=== PATIENT | female | born 1945 | race African-American/Black ===

== ENCOUNTER 2016-11-06 09:49 | Inpatient (IN) | payer OTHER ==
--- NOTE | 2016-11-06 10:09 | PDOC ---
History of Present Illness - General Chief Complaint: Blood Sugar Problem Stated Complaint: LOW BLOOD SUGAR Time Seen by Provider: 11/06/16 09:55 History Source: Patient, Care Provider, EMS, Old Records Exam Limitations: Language Barrier - History of Present Illness Initial Comments: 11/06/16 10:41 71-year-old female with history of hypertension, coronary artery disease status post stents, CHF status post pacemaker placement, diabetes, gout, glaucoma who presents to the emergency department by EMS status post hypoglycemic episode at home this morning. The home health aide states that when she got to the patient' s home, she seemed more sleepy than normal. She performed a blood glucose at home that was 28. She gave the patient a glass of orange juice but noted that the patient was barely able to raise the glass to her mouth so she called 911. EMS gave the patient 15 g of oral glucose with improvement of her mental status but fingerstick was only 50. Her fingerstick upon arrival to the emergency department was 1:15. The patient complains of pain in her back yesterday but has no other complaints at this time and denies back pain right now. Per the home health aide the patient's glucose in the morning yesterday was 30. The patient reports a recent change in her insulin regimen. She normally takes 8 units of insulin and it was recently increased to 10 units of insulin. She did not eat breakfast this morning. History was obtained using the [employer] hotline (art[employer] model ID [id number]). Past History - Past Medical History Allergies/Adverse Reactions: Allergies Allergy/AdvReac Type Severity Reaction Status Date / Time No Known Allergies Allergy Verified 11/06/16 09:59 Home Medications: Ambulatory Orders Allopurinol [Zyloprim -] 100 mg PO DAILY 02/24/16 Aspirin [ASA -] 81 mg PO DAILY 02/24/16 Ferrous Sulfate 324 mg PO TID 02/24/16 Gabapentin 300 mg PO DAILY 02/24/16 Omeprazole 20 mg PO DAILY 10/02/16 Pyridoxine HCl (B-6) [Vitamin B6 -] 50 mg PO DAILY 10/02/16 Sevelamer Carbonate [Renvela -] 800 mg PO CM 10/02/16 Insulin (Levemir) [Levemir Vial] 10 units SQ BID #0 10/04/16 Insulin Aspart [Novolog Flexpen] 10 unit SQ TID #1 10/04/16 Anemia: Yes (ISH) Asthma: No Cancer: No Cardiac Disorders: Yes (HCVD, chest pain syndrome) CVA: No COPD: No CHF: Yes Dementia: No Diabetes: Yes (TYPE II) GI Disorders: No Disorders: Yes (Renal Insuffiency) HTN: Yes Hypercholesterolemia: Yes Liver Disease: No Psychiatric Problems: Yes (anxiety) Suicide Attempt (Hx): No Seizures: No Thyroid Disease: No - Surgical History Abdominal Surgery: No Appendectomy: No Cardiac Surgery: Yes (STENTS/PPM 2007) Cholecystectomy: No Lung Surgery: No Neurologic Surgery: No Orthopedic Surgery: No - Immunization History Td Vaccination: Yes TDAP Vaccination: Yes Immunization Up to Date: Yes - Psycho/Social/Smoking Cessation Hx Anxiety: No Suicidal Ideation: No Smoking Status: No Smoking History: Never smoked Have you smoked in the past 12 months: No Number of Cigarettes Smoked Daily: 0 Information on smoking cessation initiated: No Hx Alcohol Use: No Drug/Substance Use Hx: No Substance Use Type: None Hx Substance Use Treatment: No *Physical Exam - Vital Signs Last Vital Signs Temp Pulse Resp BP Pulse Ox 98.3 F 88 17 149/64 97 11/06/16 09:54 11/06/16 09:54 11/06/16 09:54 11/06/16 09:54 11/06/16 10:00 - Physical Exam Comments: 11/06/16 10:44 GENERAL: Well developed, well nourished. Awake and alert. No acute distress. HEENT: Normocephalic, atraumatic. PERRLA, EOMI. No conjunctival pallor. Sclera are non- icteric. Moist mucous membranes. Oropharynx is clear. NECK: Supple. Full ROM. No JVD. Carotid pulses 2+ and symmetric, without bruits. No thyromegaly. No lymphadenopathy. CARDIOVASCULAR: Regular rate and rhythm. No murmurs, rubs, or gallops. Distal pulses are 2+ and symmetric. PULMONARY: No evidence of respiratory distress. Lungs clear to auscultation bilaterally. No wheezing, rales or rhonchi. ABDOMINAL: Soft. Non-tender. Non-distended. No rebound or guarding. No organomegaly. Normoactive bowel sounds. MUSCULOSKELETAL Normal range of motion at all joints. No bony deformities or tenderness. No CVA tenderness. EXTREMITIES: There is +2 bipedal edema with hyperpigmentation of the lower extremities bilaterally. SKIN: Warm and dry. Normal capillary refill. No rashes. No jaundice. NEUROLOGICAL: Alert and oriented x 3. Groslly non-focal exam. PSYCHIATRIC: Cooperative. Good eye contact. Appropriate mood and affect. ED Treatment Course - LABORATORY CBC & Chemistry Diagram: 11/06/16 10:10 11/06/16 10:10 Medical Decision Making - Medical Decision Making 11/06/16 10:45 71-year-old female with history of anemia, cataracts, CHF, hypertension, CAD, diabetes who presents to the emergency department with her second episode of hypoglycemia in 2 days. Differential diagnosis includes but is not limited to: Renal failure, infection, electrolyte abnormality, dehydration, toxic/metabolic derangement. Plan: 1. Labs 2. Urine 3. Chest x-ray 4. Will discuss with primary care physician, Dr. Combs, regarding current insulin regimen 5. Observe and reevaluate 11/06/16 13:02 Addendum: The labs have been reviewed and are noted in the EMR. I've discussed the case with the patient's primary care physician. The plan is to admit to observation for careful monitoring of glucose and adjustment of insulin regimen. *DC/Admit/Observation/Transfer Diagnosis at time of Disposition: Hypoglycemia, IDDM (insulin dependent diabetes mellitus) - Discharge Dispostion Condition at time of disposition: Stable Admit: Yes - Referrals Referrals: Iesha Combs MD [Primary Care Provider] -
[2016-11-06 11:03] LABS: URINE APPEARANCE SLCLOUDY; URINE BILIRUBIN NEGATIVE (NEGATIVE); URINE COLOR LTYELLOW; URINE GLUCOSE (UA) NEGATIVE (NEGATIVE); URINE KETONE NEGATIVE (NEGATIVE); URINE NITRITE NEGATIVE (NEGATIVE); URINE PROTEIN NEGATIVE (NEGATIVE); URINE UROBILINOGEN NEGATIVE E.U./dl (0.2-1.0)
[2016-11-06 11:07] LABS: BASOPHIL 0.6 % (0-2.0); MCHC 31.4 g/dl (32.0-36.0); MEAN CELL VOLUME 69.9 fl (80-96); MEAN PLT VOLUME 10.4 fl (7.5-11.1); NEUTROPHILS 67.5 % (42.8-82.8); PLATELET COUNT 196 K/MM3 (134-434); RDW 16.8 % (11.6-15.6)
[2016-11-06 11:08] LABS: ALBUMIN 2.9 g/dl (3.4-5.0); ANION GAP 7 (8-16); BILIRUBIN,TOTAL 0.2 mg/dL (0.2-1.0); CALCIUM 8.1 mg/dL (8.5-10.1); CO2 26 mmol/L (21-32); CREATININE 2.3 mg/dL (0.55-1.02); GLUCOSE,RANDOM 144 mg/dL (74-106); MAGNESIUM 2.1 mg/dL (1.8-2.4); PHOSPHOROUS 3.7 mg/dL (2.5-4.9); SGOT/AST 17 U/L (15-37); SGPT/ALT 18 U/L (12-78); TOT PROT 6.7 g/dl (6.4-8.2)
[2016-11-06 11:11] LABS: ALK PHOS 137 U/L (45-117); TROPONIN I < 0.02 ng/ml (0.00-0.05)
[2016-11-06 11:16] LABS: URINE BLOOD 1+ (NEGATIVE); URINE LEUK ESTERASE 1+ (NEGATIVE)
[2016-11-06 11:19] LABS: URINE BACTERIA RARE /hpf (NONE SEEN); URINE MUCUS RARE; URINE RBC <1 /hpf (0-3); URINE WBC 16 /hpf (3-5)
[2016-11-06 11:52] LABS: HYPOCHROMIA 3+; POIKILOCYTOSIS 1+
[2016-11-06 11:53] LABS: ANISOCYTOSIS 1+; MICROCYTOSIS 2+; OVALOCYTES 1+; TARGET CELLS 2+
[2016-11-06] MEDS ORDERED: ACETAMINOPHEN 325 MG TABLET (FP) PO PRN (13:44)
--- NOTE | 2016-11-06 13:49 | HP ---
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) Pulmonary: Yes: COPD Gastrointestinal: Yes: GERD, Other (anemia, IRON DEF) Heme/Onc: Yes: Anemia Musculoskeletal: Yes: Osteoarthritis Rheumatology: Yes: Gout Endocrine: Yes: Diabetes Mellitus - Past Surgical History Past Surgical History: Yes: AICD, Stent - Smoking History Smoking history: Never smoked Have you smoked in the past 12 months: No Aproximately how many cigarettes per day: 0 - Alcohol/Substance Use Hx Alcohol Use: No - Social History ADL: Support Services Home Medications - Allergies Allergies/Adverse Reactions: Allergies Allergy/AdvReac Type Severity Reaction Status Date / Time No Known Allergies Allergy Verified 11/06/16 09:59 - Home Medications Home Medications: Ambulatory Orders Allopurinol [Zyloprim -] 100 mg PO DAILY 02/24/16 Aspirin [ASA -] 81 mg PO DAILY 02/24/16 Ferrous Sulfate 324 mg PO TID 02/24/16 Gabapentin 300 mg PO DAILY 02/24/16 Omeprazole 20 mg PO DAILY 10/02/16 Pyridoxine HCl (B-6) [Vitamin B6 -] 50 mg PO DAILY 10/02/16 Sevelamer Carbonate [Renvela -] 800 mg PO CM 10/02/16 Insulin (Levemir) [Levemir Vial] 10 units SQ BID #0 10/04/16 Insulin Aspart [Novolog Flexpen] 10 unit SQ TID #1 10/04/16 Physical Examination Vital Signs: Vital Signs Temperature 98.3 F 11/06/16 09:54 Pulse Rate 84 11/06/16 13:35 Respiratory Rate 18 11/06/16 13:35 Blood Pressure 150/78 11/06/16 13:35 O2 Sat by Pulse Oximetry (%) 98 11/06/16 13:35
[2016-11-06] MEDS: SEVELAMER CARBONATE 800 MG TAB (FP) PO SCH ×2 (14:00→17:40)
[2016-11-06] MEDS: FERROUS SO4 325 MG TABLET (FP) PO SCH ×2 (14:00→17:40)
--- NOTE | 2016-11-06 16:33 | EKG ---
Test Reason : Blood Pressure : / mmHG Vent. Rate : 086 BPM Atrial Rate : 086 BPM P-R Int : 080 ms QRS Dur : 150 ms QT Int : 410 ms P-R-T Axes : 027 113 116 degrees QTc Int : 490 ms NORMAL SINUS RHYTHM ELECTRONIC VENTRICULAR PACEMAKER Confirmed by MD JACOB, INGRID ([id number]) on 11/06/2016 4:33:16 PM Referred By: Overread By: INGRID JAMES MD
[2016-11-06] MEDS: DEXTROSE 5%-0.45% SALINE 1,000 ML IV SCH (16:48)
[2016-11-06] MEDS: INSULIN SLIDING SCALE (NOVOLOG) 1 VIAL SQ SCH ×2 (17:40→22:35)
[2016-11-06 17:42] VITALS: BMI 41.4
--- NOTE | 2016-11-06 18:41 | HP ---
DATE OF ADMISSION: DATE OF DICTATION: 11/06/2016 HISTORY OF PRESENT ILLNESS: This patient is a 71-year-old female with extensive past medical history of coronary artery disease, CHF status post pacemaker, hypertension, insulin dependent diabetes mellitus, gout, arthritis, renal insufficiency, and glaucoma, is being kept in the hospital under observation as she was brought to emergency room due to hypoglycemia. Patient's blood sugar in the morning reported to be around 30. EMS gave the patient oral glucose with improvement of sugar and which also led to improvement in mental status. In emergency room, when she arrived, sugar was 115. As per patient, her recent insulin was increased to 10 units by her sales project coordinator. Patient's home medications reviewed. Patient's past medical history as mentioned. REVIEW OF SYSTEMS: As mentioned, secondary to hypoglycemia, altered mental status. Patient seen in the emergency room. Aid is at bedside. Patient denies chest pain, shortness of breath, or abdominal pain. No headache or dizziness. No urinary or bowel trouble. PHYSICAL EXAMINATION: General: She is awake, comfortable, not in distress. Neck: Supple. Lungs: Clear. Cardiovascular: Heart sounds are regular. Abdomen: Soft. Extremities: +1 edema. Neurologic: She is alert and oriented x3. Nonfocal exam. Blood work done in the ER showed normal white count and hemoglobin around 9.5 and 30 which is around baseline, and platelets 196. Chemistries significant for BUN 46, creatinine 2.3 which is also baseline, and blood sugar is 144. Chest x-ray did not show any acute pathology. ASSESSMENT AND PLAN: Patient with extensive past medical history is brought to the hospital due to hypoglycemia. Will observe overnight, monitor blood sugar. Patient lives alone and I am very concerned she is not compliant with the medications. Patient also missed her meals. I will decrease the Lantus to 10 units daily from twice a day and give her coverage. I believe she should be in the prison, and she should have placement. I discussed in detail with patient and aid. Patient is alert but kind of getting angry. Will request manager social services to assist and further recommendations guided by the clinical course. BRIANNA RICE M.D. BRODIE/[id number]
[2016-11-07] MEDS: INSULIN SLIDING SCALE (NOVOLOG) 1 VIAL SQ SCH ×4 (06:49→22:33)
[2016-11-07] MEDS: DEXTROSE 5%-0.45% SALINE 1,000 ML IV SCH (06:51)
[2016-11-07] MEDS: FERROUS SO4 325 MG TABLET (FP) PO SCH ×3 (08:33→17:01)
[2016-11-07] MEDS: SEVELAMER CARBONATE 800 MG TAB (FP) PO SCH ×3 (08:33→17:01)
[2016-11-07] MEDS: ENOXAPARIN NA (PORCINE) 30 MG/0.3 ML DISP.SYRIN SQ SCH (09:41)
[2016-11-07] MEDS: ASPIRIN 81 MG CHEWABLE TABLETS PO SCH (09:42)
[2016-11-07] MEDS: GABAPENTIN 300 MG CAPSULE (FP) PO SCH (09:42)
[2016-11-07] MEDS: ALLOPURINOL 100 MG TABLET (FP) PO SCH (09:44)
[2016-11-07] MEDS: PANTOPRAZOLE 20 MG TABLET (FP) PO SCH (09:45)
[2016-11-07] MEDS ORDERED: PT OWN MED DRAWER 7, Y5N ONE (09:49)
[2016-11-07] MEDS: PYRIDOXINE HCL (B-6) 50 MG TABLET (FP) PO SCH (10:33)
--- NOTE | 2016-11-07 12:22 | PN ---
Progress Note, Physician Chief Complaint: events noted No further episodes of hypoglycemia - Current Medication List Current Medications: Active Medications Acetaminophen (Tylenol -) 650 mg PO Q4H PRN PRN Reason: FEVER OR PAIN Allopurinol (Zyloprim -) 100 mg PO DAILY [facility] Last Admin: 11/07/16 09:44 Dose: 100 mg Aspirin (Asa -) 81 mg PO DAILY [facility] Last Admin: 11/07/16 09:42 Dose: 81 mg Enoxaparin Sodium (Lovenox -) 30 mg SQ DAILY [facility] Last Admin: 11/07/16 09:41 Dose: 30 mg Ferrous Sulfate (Feosol -) 325 mg PO TIDCM [facility] Last Admin: 11/07/16 08:33 Dose: 325 mg Gabapentin (Neurontin -) 300 mg PO DAILY [facility] Last Admin: 11/07/16 09:42 Dose: 300 mg Dextrose/Sodium Chloride (D5-1/2ns -) 1,000 mls @ 75 mls/hr IV ASDIR [facility] Last Admin: 11/07/16 06:51 Dose: 75 mls/hr Insulin Aspart (Novolog Vial Sliding Scale -) 1 vial SQ ACHS [facility] PRN Reason: Protocol Last Admin: 11/07/16 06:49 Dose: 2 units Insulin Detemir (Levemir Vial) 10 units SQ HS [facility] Pantoprazole Sodium (Protonix -) 20 mg PO DAILY [facility] Last Admin: 11/07/16 09:45 Dose: 20 mg Pyridoxine HCl (Vitamin B6 -) 50 mg PO DAILY [facility] Last Admin: 11/07/16 10:33 Dose: 50 mg Sevelamer Carbonate (Renvela -) 800 mg PO TIDCM [facility] Last Admin: 11/07/16 08:33 Dose: 800 mg - Objective Vital Signs: Vital Signs Temperature 98.1 F 11/07/16 09:50 Pulse Rate 92 H 11/07/16 09:50 Respiratory Rate 20 11/07/16 09:50 Blood Pressure 149/81 11/07/16 09:50 O2 Sat by Pulse Oximetry (%) 98 11/07/16 07:00 Constitutional: Yes: No Distress Cardiovascular: Yes: Regular Rate and Rhythm Respiratory: Yes: Diminished Gastrointestinal: Yes: Normal Bowel Sounds, Soft, Abdomen, Obese. No: Distention, Tenderness Edema: Yes Edema: LLE: Trace, RLE: Trace Problem List - Problems (1) Hypoglycemia Code(s): E16.2 - HYPOGLYCEMIA, UNSPECIFIED (2) IDDM (insulin dependent diabetes mellitus) Code(s): E11.9 - TYPE 2 DIABETES MELLITUS WITHOUT COMPLICATIONS Z79.4 - LONGTERM (CURRENT) USE OF INSULIN (3) Anemia Code(s): D64.9 - ANEMIA, UNSPECIFIED Qualifiers: Anemia type: iron deficiency Qualified Code(s): D64.9 - Anemia, unspecified (4) Renal insufficiency Code(s): N28.9 - DISORDER OF KIDNEY AND URETER, UNSPECIFIED Assessment/Plan PLAN dc IV fluids monitor blood sugars Levemir as directed continue with meds possible dc tomorrow
[2016-11-07] MEDS: INSULIN DETEMIR 100 UNITS/ML MDV SQ SCH (22:28)
[2016-11-08] MEDS: INSULIN SLIDING SCALE (NOVOLOG) 1 VIAL SQ SCH ×4 (06:48→22:35)
[2016-11-08] MEDS: FERROUS SO4 325 MG TABLET (FP) PO SCH ×3 (08:17→17:28)
[2016-11-08] MEDS: SEVELAMER CARBONATE 800 MG TAB (FP) PO SCH ×3 (08:17→17:28)
--- NOTE | 2016-11-08 09:46 | PN ---
Progress Note, Physician Chief Complaint: events noted No further episodes of hypoglycemia - Current Medication List Current Medications: Active Medications Acetaminophen (Tylenol -) 650 mg PO Q4H PRN PRN Reason: FEVER OR PAIN Allopurinol (Zyloprim -) 100 mg PO DAILY [facility] Last Admin: 11/07/16 09:44 Dose: 100 mg Aspirin (Asa -) 81 mg PO DAILY [facility] Last Admin: 11/07/16 09:42 Dose: 81 mg Enoxaparin Sodium (Lovenox -) 30 mg SQ DAILY [facility] Last Admin: 11/07/16 09:41 Dose: 30 mg Ferrous Sulfate (Feosol -) 325 mg PO TIDCM [facility] Last Admin: 11/08/16 08:17 Dose: 325 mg Gabapentin (Neurontin -) 300 mg PO DAILY [facility] Last Admin: 11/07/16 09:42 Dose: 300 mg Insulin Aspart (Novolog Vial Sliding Scale -) 1 vial SQ ACHS [facility] PRN Reason: Protocol Last Admin: 11/08/16 06:48 Dose: Not Given Insulin Detemir (Levemir Vial) 10 units SQ HS [facility] Last Admin: 11/07/16 22:28 Dose: 10 units Pantoprazole Sodium (Protonix -) 20 mg PO DAILY [facility] Last Admin: 11/07/16 09:45 Dose: 20 mg Pyridoxine HCl (Vitamin B6 -) 50 mg PO DAILY [facility] Last Admin: 11/07/16 10:33 Dose: 50 mg Sevelamer Carbonate (Renvela -) 800 mg PO TIDCM [facility] Last Admin: 11/08/16 08:17 Dose: 800 mg - Objective Vital Signs: Vital Signs Temperature 98.7 F 11/08/16 06:00 Pulse Rate 96 H 11/08/16 06:00 Respiratory Rate 18 11/08/16 07:00 Blood Pressure 145/70 11/08/16 06:00 O2 Sat by Pulse Oximetry (%) 98 11/08/16 07:00 Constitutional: Yes: No Distress Cardiovascular: Yes: Regular Rate and Rhythm Respiratory: Yes: Diminished Gastrointestinal: Yes: Normal Bowel Sounds, Soft, Abdomen, Obese. No: Tenderness Edema: Yes Edema: LLE: 1+, RLE: 1+ Problem List - Problems (1) Hypoglycemia Code(s): E16.2 - HYPOGLYCEMIA, UNSPECIFIED (2) IDDM (insulin dependent diabetes mellitus) Code(s): E11.9 - TYPE 2 DIABETES MELLITUS WITHOUT COMPLICATIONS Z79.4 - FIELD MARKETING COORDINATOR (CURRENT) USE OF INSULIN (3) Anemia Code(s): D64.9 - ANEMIA, UNSPECIFIED Qualifiers: Anemia type: iron deficiency (4) Renal insufficiency Code(s): N28.9 - DISORDER OF KIDNEY AND URETER, UNSPECIFIED Assessment/Plan PLAN dc IV fluids monitor blood sugars Levemir as directed continue with meds unable to take take care of self at home-- will benefit from STR -- she forgets to take her meds and sometimes take too much insulin per ATMOSPHERIC PHYSICIST spoke with case manager specialist
[2016-11-08] MEDS: ENOXAPARIN NA (PORCINE) 30 MG/0.3 ML DISP.SYRIN SQ SCH (11:24)
[2016-11-08] MEDS: ASPIRIN 81 MG CHEWABLE TABLETS PO SCH (11:24)
[2016-11-08] MEDS: GABAPENTIN 300 MG CAPSULE (FP) PO SCH (11:24)
[2016-11-08] MEDS: PANTOPRAZOLE 20 MG TABLET (FP) PO SCH (11:25)
[2016-11-08] MEDS: ALLOPURINOL 100 MG TABLET (FP) PO SCH (11:25)
[2016-11-08] MEDS ORDERED: PT OWN MED DRAWER 7, Y5N ONE (16:40)
[2016-11-08] MEDS: PYRIDOXINE HCL (B-6) 50 MG TABLET (FP) PO SCH (17:29)
[2016-11-08] MEDS: INSULIN DETEMIR 100 UNITS/ML MDV SQ SCH (22:33)
[2016-11-09] MEDS: INSULIN SLIDING SCALE (NOVOLOG) 1 VIAL SQ SCH ×4 (06:39→23:42)
[2016-11-09] MEDS: SEVELAMER CARBONATE 800 MG TAB (FP) PO SCH ×3 (08:29→17:31)
[2016-11-09] MEDS: FERROUS SO4 325 MG TABLET (FP) PO SCH ×3 (08:29→17:31)
[2016-11-09] MEDS: ENOXAPARIN NA (PORCINE) 30 MG/0.3 ML DISP.SYRIN SQ SCH (10:31)
[2016-11-09] MEDS: GABAPENTIN 300 MG CAPSULE (FP) PO SCH (10:31)
[2016-11-09] MEDS: ALLOPURINOL 100 MG TABLET (FP) PO SCH (10:32)
[2016-11-09] MEDS: PANTOPRAZOLE 20 MG TABLET (FP) PO SCH (10:32)
[2016-11-09] MEDS: ASPIRIN 81 MG CHEWABLE TABLETS PO SCH (10:32)
[2016-11-09] MEDS: PYRIDOXINE HCL (B-6) 50 MG TABLET (FP) PO SCH (10:33)
--- NOTE | 2016-11-09 11:26 | PN ---
Progress Note (short form) - Note Progress Note: no distress wants to go home Vital Signs - 24 hr 11/08/16 11/08/16 11/08/16 15:12 18:20 21:00 Temperature 98.9 F 98.9 F Pulse Rate 87 89 Respiratory 20 20 20 Rate Blood Pressure 144/87 144/75 O2 Sat by Pulse 98 Oximetry (%) 11/08/16 11/09/16 11/09/16 22:00 06:00 10:00 Temperature 98 F 98.8 F 97.9 F Pulse Rate 90 90 91 H Respiratory 18 20 20 Rate Blood Pressure 135/77 173/90 110/84 O2 Sat by Pulse Oximetry (%) Current Medications Generic Name Dose Route Start Last Admin Trade Name Freq PRN Reason Stop Dose Admin Acetaminophen 650 mg 11/06/16 13:44 Tylenol - PO Q4H PRN FEVER OR PAIN Allopurinol 100 mg 11/07/16 10:00 11/09/16 10:32 Zyloprim - PO 100 mg DAILY [facility] Administration Aspirin 81 mg 11/07/16 10:00 11/09/16 10:32 Asa - PO 81 mg DAILY [facility] Administration Enoxaparin Sodium 30 mg 11/07/16 10:00 11/09/16 10:31 Lovenox - SQ 30 mg DAILY [facility] Administration Ferrous Sulfate 325 mg 11/06/16 14:00 11/09/16 12:09 Feosol - PO 325 mg TIDCM [facility] Administration Gabapentin 300 mg 11/07/16 10:00 11/09/16 10:31 Neurontin - PO 300 mg DAILY [facility] Administration Insulin Aspart 1 vial 11/06/16 16:30 11/09/16 12:06 Novolog Vial Sliding Scale - SQ 6 units ACHS [facility] Administration Protocol Insulin Detemir 10 units 11/07/16 22:00 11/08/16 22:33 Levemir Vial SQ 10 units HS [facility] Administration Pantoprazole Sodium 20 mg 11/07/16 10:00 11/09/16 10:32 Protonix - PO 20 mg DAILY [facility] Administration Pyridoxine HCl 50 mg 11/07/16 10:00 11/09/16 10:33 Vitamin B6 - PO 50 mg DAILY [facility] Administration Sevelamer Carbonate 800 mg 11/06/16 13:45 11/09/16 12:10 Renvela - PO 800 mg TIDCM [facility] Administration Laboratory Results - last 24 hr 11/08/16 11/08/16 11/09/16 17:25 22:20 05:30 POC Glucometer 357 385 263 11/09/16 12:05 POC Glucometer 291 S1 S2 RRR Lungs clear Abd- soft, NT edema 1+ PLAN no further episodes of hypoglycemia monitor blood sugars Levemir as directed continue with meds unable to take take care of self at home-- will benefit from STR -- she forgets to take her meds and sometimes take too much insulin per POTATO SEED CUTTER spoke with telephonic nurse case manager Problem List - Problems (1) Hypoglycemia Code(s): E16.2 - HYPOGLYCEMIA, UNSPECIFIED (2) IDDM (insulin dependent diabetes mellitus) Code(s): E11.9 - TYPE 2 DIABETES MELLITUS WITHOUT COMPLICATIONS Z79.4 - FDC (CURRENT) USE OF INSULIN (3) Anemia Code(s): D64.9 - ANEMIA, UNSPECIFIED Qualifiers: Anemia type: iron deficiency (4) Renal insufficiency Code(s): N28.9 - DISORDER OF KIDNEY AND URETER, UNSPECIFIED
[2016-11-09] MEDS: hydrALAZINE HCL 25 MG TABLET (FP) PO SCH (22:15)
[2016-11-09] MEDS: cefTRIAXone 1 GM/50 ML BAG (PRE-DOCKED) IVPB SCH (22:16)
[2016-11-09] MEDS: INSULIN DETEMIR 100 UNITS/ML MDV SQ SCH (22:18)
[2016-11-10] MEDS: INSULIN SLIDING SCALE (NOVOLOG) 1 VIAL SQ SCH ×4 (06:34→21:40)
[2016-11-10 08:45] LABS: MCH 21.9 pg (25.7-33.7); MCHC 31.3 g/dl (32.0-36.0); MEAN CELL VOLUME 69.9 fl (80-96); MEAN PLT VOLUME 9.8 fl (7.5-11.1); PLATELET COUNT 204 K/MM3 (134-434); RDW 16.3 % (11.6-15.6); WHITE BLOOD COUNT 11.4 K/mm3 (4.0-10.0)
[2016-11-10 09:08] LABS: CALCIUM 8.7 mg/dL (8.5-10.1); CREATININE 1.9 mg/dL (0.55-1.02)
[2016-11-10] MEDS ORDERED: PT OWN MED DRAWER 7, Y5N ONE ×2 (09:43→21:07)
[2016-11-10] MEDS: SEVELAMER CARBONATE 800 MG TAB (FP) PO SCH ×3 (09:46→18:33)
[2016-11-10] MEDS: hydrALAZINE HCL 25 MG TABLET (FP) PO SCH ×2 (09:47→21:38)
[2016-11-10] MEDS: PANTOPRAZOLE 20 MG TABLET (FP) PO SCH (09:47)
[2016-11-10] MEDS: ALLOPURINOL 100 MG TABLET (FP) PO SCH (09:47)
[2016-11-10] MEDS: ASPIRIN 81 MG CHEWABLE TABLETS PO SCH (09:47)
[2016-11-10] MEDS: GABAPENTIN 300 MG CAPSULE (FP) PO SCH (09:47)
[2016-11-10] MEDS: FERROUS SO4 325 MG TABLET (FP) PO SCH ×3 (09:47→18:33)
[2016-11-10] MEDS: ENOXAPARIN NA (PORCINE) 30 MG/0.3 ML DISP.SYRIN SQ SCH (09:47)
[2016-11-10] MEDS: cefTRIAXone 1 GM/50 ML BAG (PRE-DOCKED) IVPB SCH (09:48)
[2016-11-10] MEDS: PYRIDOXINE HCL (B-6) 50 MG TABLET (FP) PO SCH (10:36)
--- NOTE | 2016-11-10 14:02 | PN ---
Progress Note, Physician Chief Complaint: events noted No further episodes of hypoglycemia SOB on ambulation per nurse febrile yesterday afebrile today cultures done - Current Medication List Current Medications: Active Medications Acetaminophen (Tylenol -) 650 mg PO Q4H PRN PRN Reason: FEVER OR PAIN Last Admin: 11/09/16 22:14 Dose: 650 mg Allopurinol (Zyloprim -) 100 mg PO DAILY [facility] Last Admin: 11/10/16 09:47 Dose: 100 mg Aspirin (Asa -) 81 mg PO DAILY [facility] Last Admin: 11/10/16 09:47 Dose: 81 mg Ceftriaxone Sodium (Rocephin 1gm Ivpb (Pre-Docked)) 1 gm IVPB DAILY [facility] Last Admin: 11/10/16 09:48 Dose: 1 gm Enoxaparin Sodium (Lovenox -) 30 mg SQ DAILY [facility] Last Admin: 11/10/16 09:47 Dose: 30 mg Ferrous Sulfate (Feosol -) 325 mg PO TIDCM [facility] Last Admin: 11/10/16 12:13 Dose: 325 mg Gabapentin (Neurontin -) 300 mg PO DAILY [facility] Last Admin: 11/10/16 09:47 Dose: 300 mg Hydralazine HCl (Apresoline -) 25 mg PO BID [facility] Last Admin: 11/10/16 09:47 Dose: 25 mg Insulin Aspart (Novolog Vial Sliding Scale -) 1 vial SQ ACHS [facility] PRN Reason: Protocol Last Admin: 11/10/16 12:13 Dose: 2 units Insulin Detemir (Levemir Vial) 10 units SQ HS [facility] Last Admin: 11/09/16 22:18 Dose: 10 units Pantoprazole Sodium (Protonix -) 20 mg PO DAILY [facility] Last Admin: 11/10/16 09:47 Dose: 20 mg Pyridoxine HCl (Vitamin B6 -) 50 mg PO DAILY [facility] Last Admin: 11/10/16 10:36 Dose: 50 mg Sevelamer Carbonate (Renvela -) 800 mg PO TIDCM [facility] Last Admin: 11/10/16 12:13 Dose: 800 mg - Objective Vital Signs: Vital Signs Temperature 100.4 F H 11/10/16 13:59 Pulse Rate 113 H 11/10/16 13:59 Respiratory Rate 20 11/10/16 13:59 Blood Pressure 158/88 11/10/16 13:59 O2 Sat by Pulse Oximetry (%) 99 01/03/17 10:12 Constitutional: Yes: Calm Cardiovascular: Yes: Regular Rate and Rhythm Respiratory: Yes: Diminished, Rales. No: Rhonchi Gastrointestinal: Yes: Normal Bowel Sounds, Soft. No: Distention, Tenderness Edema: Yes Edema: LLE: 1+, RLE: 1+ Psychiatric: Yes: Alert Labs: CBC, BMP 11/10/16 07:50 11/10/16 07:50 Problem List - Problems (1) Hypoglycemia Code(s): E16.2 - HYPOGLYCEMIA, UNSPECIFIED (2) IDDM (insulin dependent diabetes mellitus) Code(s): E11.9 - TYPE 2 DIABETES MELLITUS WITHOUT COMPLICATIONS Z79.4 - BLISS PRESS OPERATOR (CURRENT) USE OF INSULIN (3) Anemia Code(s): D64.9 - ANEMIA, UNSPECIFIED Qualifiers: Anemia type: iron deficiency (4) Renal insufficiency Code(s): N28.9 - DISORDER OF KIDNEY AND URETER, UNSPECIFIED (5) SOB (shortness of breath) on exertion Code(s): R06.02 - SHORTNESS OF BREATH (6) Fever Code(s): R50.9 - FEVER, UNSPECIFIED Qualifiers: Encounter type: initial encounter Assessment/Plan PLAN start nebs blood Cultures pending influenza screen negative empiric antibiotics PT eval unable to get UA- pt not compliant start Torsemide check CXR monitor blood sugars Levemir as directed continue with meds
[2016-11-10] MEDS ORDERED: ALBUTEROL SO4 0.083% IH SOL 2.5 MG/3 ML VIAL.NEB. NEB PRN (14:22)
[2016-11-10] MEDS: INSULIN DETEMIR 100 UNITS/ML MDV SQ SCH (21:40)
[2016-11-10] MEDS: TORSEMIDE 20 MG TABLET (FP) PO SCH (21:41)
[2016-11-11] MEDS: INSULIN SLIDING SCALE (NOVOLOG) 1 VIAL SQ SCH ×2 (06:34→11:47)
[2016-11-11 07:43] LABS: BASOPHIL 0.7 % (0-2.0); EOSINOPHIL 1.3 % (0-4.5); MCH 21.9 pg (25.7-33.7); MCHC 31.2 g/dl (32.0-36.0); MEAN PLT VOLUME 10.6 fl (7.5-11.1); NEUTROPHILS 76.5 % (42.8-82.8); PLATELET COUNT 217 K/MM3 (134-434); RDW 16.2 % (11.6-15.6); WHITE BLOOD COUNT 12.1 K/mm3 (4.0-10.0)
[2016-11-11 08:15] LABS: BILIRUBIN,TOTAL 0.6 mg/dL (0.2-1.0); CALCIUM 8.8 mg/dL (8.5-10.1); CREATININE 2.3 mg/dL (0.55-1.02)
[2016-11-11] MEDS ORDERED: PT OWN MED DRAWER 7, Y5N ONE ×2 (09:29→11:37)
[2016-11-11] MEDS: hydrALAZINE HCL 25 MG TABLET (FP) PO SCH (09:54)
[2016-11-11] MEDS: ALLOPURINOL 100 MG TABLET (FP) PO SCH (09:54)
[2016-11-11] MEDS: PANTOPRAZOLE 20 MG TABLET (FP) PO SCH (09:54)
[2016-11-11] MEDS: FERROUS SO4 325 MG TABLET (FP) PO SCH ×2 (09:54→11:52)
[2016-11-11] MEDS: GABAPENTIN 300 MG CAPSULE (FP) PO SCH (09:54)
[2016-11-11] MEDS: ASPIRIN 81 MG CHEWABLE TABLETS PO SCH (09:54)
[2016-11-11] MEDS: SEVELAMER CARBONATE 800 MG TAB (FP) PO SCH ×2 (09:54→11:47)
[2016-11-11] MEDS: ENOXAPARIN NA (PORCINE) 30 MG/0.3 ML DISP.SYRIN SQ SCH (09:55)
[2016-11-11] MEDS: cefTRIAXone 1 GM/50 ML BAG (PRE-DOCKED) IVPB SCH (09:55)
[2016-11-11 10:00] LABS: ANISOCYTOSIS 1+; HYPOCHROMIA 2+; MICROCYTOSIS 1+
[2016-11-11 10:01] LABS: TARGET CELLS 2+
[2016-11-11 10:40] VITALS: BP 151/75; TEMP 97.2
[2016-11-11 11:21] VITALS: PULSE 98
[2016-11-11] MEDS ORDERED: TORSEMIDE 20 MG TABLET (FP) PO SCH (11:36)
[2016-11-11] MEDS ORDERED: INSULIN (NOVOLOG) ASPART 100 UNITS/ML 10ML VIAL ONE (11:38)
--- NOTE | 2016-11-11 11:39 | DS ---
Physical Examination Vital Signs: Vital Signs Temperature 97.2 F L 11/11/16 10:00 Pulse Rate 98 H 11/11/16 11:21 Respiratory Rate 18 11/11/16 10:00 Blood Pressure 151/75 11/11/16 10:00 O2 Sat by Pulse Oximetry (%) 99 11/11/16 11:21 Constitutional: Yes: No Distress, Calm Cardiovascular: Yes: Regular Rate and Rhythm Respiratory: Yes: Diminished. No: Rales, Rhonchi Gastrointestinal: Yes: Normal Bowel Sounds, Soft, Abdomen, Obese. No: Distention, Tenderness Edema: Yes Edema: LLE: 1+, RLE: 1+ Psychiatric: Yes: Alert Labs: CBC, BMP 11/11/16 06:30 11/11/16 06:30 Discharge Summary Reason For Visit: HYPOGLYCEMIA,IDDM Current Active Problems Fever (Acute) Hypoglycemia (Acute) IDDM (insulin dependent diabetes mellitus) (Acute) SOB (shortness of breath) on exertion (Acute) Hospital Course: Admitted for hypoglycemic episode Pt was placed on Iv fluids-- which were dc later She had a fever and Ceftriaxone was started-- blood cultures negative , Influenza screen negative, UA positive Pt also received Torsemide as she was feeling SOB Pt now better Creatinine around baseline She is stable for dc - will need monitoring of BGM Condition: Stable - Instructions Referrals: Iesha Combs MD [Primary Care Provider] - 1 Week Disposition: HOME - Home Medications Comprehensive Discharge Medication List: Ambulatory Orders Allopurinol [Zyloprim -] 100 mg PO DAILY 02/24/16 Aspirin [ASA -] 81 mg PO DAILY 02/24/16 Ferrous Sulfate 324 mg PO TID 02/24/16 Gabapentin 300 mg PO DAILY 02/24/16 Omeprazole 20 mg PO DAILY 10/02/16 Pyridoxine HCl (B-6) [Vitamin B6 -] 50 mg PO DAILY 10/02/16 Sevelamer Carbonate [Renvela -] 800 mg PO CM 10/02/16 Insulin (Levemir) [Levemir Vial] 10 units SQ BID #0 10/04/16 Amoxicillin - [Amoxicillin 500mg Capsule -] 500 mg PO BID #10 capsule 11/11/16 Hydralazine HCl [Apresoline -] 25 mg PO BID #60 tablet 11/11/16 Torsemide 20 mg PO DAILY #30 tablet 11/11/16
[2016-11-11] MEDS: PYRIDOXINE HCL (B-6) 50 MG TABLET (FP) PO SCH (11:47)
[2016-11-11] MEDS: TORSEMIDE 20 MG TABLET (FP) PO SCH (11:48)
== END 2016-11-11 14:33 | disposition home or self-care (01) | DRG 639 ==
LOC: JER 09:49 → UNDOADMOB 13:21 → JERBED 13:21 → J5S 15:22 → OBSVTOIN 11-10 10:00
PROVIDERS: ADMIT Internal Medicine; ATTEND Internal Medicine
DX: E11.649 Type 2 diabetes mellitus with hypoglycemia without coma (principal); I10 Essential (primary) hypertension; I25.10 Atherosclerotic heart disease of native coronary artery without angina pectoris; Z95.0 Presence of cardiac pacemaker; M10.9 Gout, unspecified; H40.9 Unspecified glaucoma; D64.9 Anemia, unspecified; Z79.4 Long term (current) use of insulin; N28.9 Disorder of kidney and ureter, unspecified; R06.02 Shortness of breath
CPT/HCPCS: 36415; 71010-TC; 80048; 80053; 81003; 81015; 82550; 83735; 84100; 84484; 85025; 85027; 87040; 87254; 87804; 93005; 93010; 94640; 97001-GP; 97116-GP; 99283-25; G0378

== ENCOUNTER 2016-11-12 13:29 | Emergency (ER) | payer OTHER ==
--- NOTE | 2016-11-12 13:58 | PDOC ---
History of Present Illness - History of Present Illness Initial Comments: 11/12/16 14:28 The patient is a 71 year old with a past medical hx of HTN, coronary artery disease status post stents, insulin dependent diabetes, CHF who presents to the ED complaining of elevated blood glucose levels. The patient states she had oatmeal with fruit and tea this morning for breakfast. The patient states she is having bilateral leg pain, otherwise feels fine. The patient was admitted here on 11/06/16 for hypoglycemia, and there were no changes to her medication regimen. The patient denies chest pain, SOB The patient denies nausea, vomiting, diarrhea The patient denies dysuria, fever, chills Allergies: NKDA Social: No toxic habits reported Surgical: Stents PCP: Dr. Iesha Combs <Verena Cintron - Last Filed: 11/12/16 17:20> - General History Source: Patient Exam Limitations: No Limitations <Ankita Hunt - Last Filed: 11/13/16 08:33> - General Chief Complaint: Blood Sugar Problem Stated Complaint: HIGH BLOOD SUGAR Time Seen by Provider: 11/12/16 13:48 Past History <Verena Cintron - Last Filed: 11/12/16 17:20> - Past Medical History Anemia: Yes (ISH) Asthma: No Cancer: No Cardiac Disorders: Yes (HCVD, chest pain syndrome) CVA: No COPD: No CHF: Yes Dementia: No Diabetes: Yes (TYPE II) GI Disorders: No Disorders: Yes (Renal Insuffiency) HTN: Yes Hypercholesterolemia: Yes Liver Disease: No Psychiatric Problems: Yes (anxiety) Suicide Attempt (Hx): No Seizures: No Thyroid Disease: No - Surgical History Abdominal Surgery: No Appendectomy: No Cardiac Surgery: Yes (STENTS/PPM 2007) Cholecystectomy: No Lung Surgery: No Neurologic Surgery: No Orthopedic Surgery: No - Immunization History Td Vaccination: Yes TDAP Vaccination: Yes Immunization Up to Date: Yes - Psycho/Social/Smoking Cessation Hx Anxiety: No Suicidal Ideation: No Smoking Status: No Smoking History: Never smoked Have you smoked in the past 12 months: No Number of Cigarettes Smoked Daily: 0 Hx Alcohol Use: No Drug/Substance Use Hx: No Substance Use Type: None Hx Substance Use Treatment: No <Ankita Hunt - Last Filed: 11/13/16 08:33> - Past Medical History Allergies/Adverse Reactions: Allergies Allergy/AdvReac Type Severity Reaction Status Date / Time No Known Allergies Allergy Verified 11/12/16 13:52 Home Medications: Ambulatory Orders Allopurinol [Zyloprim -] 100 mg PO DAILY 02/24/16 Aspirin [ASA -] 81 mg PO DAILY 02/24/16 Ferrous Sulfate 324 mg PO TID 02/24/16 Gabapentin 300 mg PO DAILY 02/24/16 Omeprazole 20 mg PO DAILY 10/02/16 Pyridoxine HCl (B-6) [Vitamin B6 -] 50 mg PO DAILY 10/02/16 Sevelamer Carbonate [Renvela -] 800 mg PO CM 10/02/16 Insulin (Levemir) [Levemir Vial] 10 units SQ BID #0 10/04/16 Amoxicillin - [Amoxicillin 500mg Capsule -] 500 mg PO BID #10 capsule 11/11/16 Hydralazine HCl [Apresoline -] 25 mg PO BID #60 tablet 11/11/16 Torsemide 20 mg PO DAILY #30 tablet 11/11/16 Review of Systems - Review of Systems Able to Perform ROS?: Yes Comments:: 11/12/16 14:29 GENERAL/CONSTITUTIONAL: +Hyperglycemia. No: fever, chills, weakness, loss of appetite. HEAD, EYES, EARS, NOSE AND THROAT: No: change in vision, ear pain, discharge, sore throat, throat swelling. CARDIOVASCULAR: No: chest pain, lightheadedness, palpitations, syncope RESPIRATORY: No: cough, shortness of breath, wheezing, hemoptysis, stridor. GASTROINTESTINAL: No: nausea, vomiting, abdominal cramping, diarrhea, rectal bleeding, constipation. GENITOURINARY: No: dysuria, hematuria, frequency, urgency, flank pain. MUSCULOSKELETAL: +Bilateral leg pain No: back pain, neck pain, joint pain. SKIN: No: lesions, pallor, rash or easy bruising. NEUROLOGIC: No: headache, vertigo, paresthesias, weakness ENDOCRINE: No: unexplained weight gain or loss HEMATOLOGIC/LYMPHATIC: No: anemia, easy bleeding, swelling nodes <Verena Cintron - Last Filed: 11/12/16 17:20> *Physical Exam - Vital Signs Last Vital Signs Temp Pulse Resp BP Pulse Ox 98.7 F 88 16 147/85 96 11/12/16 13:52 11/12/16 13:52 11/12/16 13:52 11/12/16 13:52 11/12/16 13:52 - Physical Exam Comments: 11/12/16 14:29 GENERAL: The patient is in no acute distress. HEAD: Normal with no signs of trauma. EYES: PERRLA, EOMI, sclera anicteric, conjunctiva clear. ENT: Ears normal, nares patent, oropharynx clear without exudates. Moist mucous membranes. NECK: Normal range of motion, supple without lymphadenopathy, JVD, or masses. LUNGS: Breath sounds equal, clear to auscultation bilaterally. No wheezes, and no crackles. HEART:Regular rate and rhythm, normal S1 and S2 without murmur, rub or gallop. ABDOMEN: Soft, nontender, normoactive bowel sounds. No guarding, no rebound. EXTREMITIES: + Bilateral lower extremity edema to the knees 3+. Normal range of motion. No clubbing or cyanosis. No erythema, or tenderness. NEUROLOGICAL: Cranial nerves II through XII grossly intact. Normal speech. No focal neurological deficits. MUSCULOSKELETAL: Back nontender to palpation, no CVA tenderness SKIN: Warm, Dry, normal turgor, no rashes or lesions noted. <Verena Cintron - Last Filed: 11/12/16 17:20> Heart Score/ECG Review #1 ECG reviewed & interpreted by me at: 16:42 11/12/16 16:43 Paced at 83bpm <Ankita Hunt - Last Filed: 11/13/16 08:33> ED Treatment Course - LABORATORY CBC & Chemistry Diagram: 11/12/16 14:26 11/12/16 14:10 - RADIOLOGY Radiograph Interpretation: 11/12/16 17:20 Edematous changes are noted within the subcutaneous tissues of the left calf. IMPRESSION: No evidence of deep venous thrombosis. Reported By: Philippe Frye MD 11/12/16 8436 - Medications Given in the ED: ED Medications Discontinued Medications Generic Name Dose Route Start Last Admin Trade Name Freq PRN Reason Stop Dose Admin Insulin Human Regular 8 units 11/12/16 14:21 11/12/16 14:24 Novolin R Vial *Ivpush / Er / Icu Only* IVPUSH 11/12/16 14:22 8 units ONCE ONE Administration <Verena Cintron - Last Filed: 11/12/16 17:20> - LABORATORY CBC & Chemistry Diagram: 11/12/16 14:26 11/12/16 14:10 <Ankita Hunt - Last Filed: 11/13/16 08:33> Medical Decision Making - Medical Decision Making 11/12/16 13:58 A portion of this note was documented by scribe services under my direction. I have reviewed the details of the note, within reason, and agree with the documentation with the following case summary and management plan written by me. Nursing documentation reviewed and incorporated into medical decision making 11/12/16 16:12 71 yo F with a history of HTN, DM presenting to the ER with a complaint of hyperglycemia She took her standard medications - LEvimir 10 BID and Novolog (this was discontinued during her last admission) She states she is not eating foods with a high glycemic index No chest pain, no nausea, no vomiting, no diarrhea, no dysria Pt has not taken the new medications which she was discharged on DD: hyperglycemia related to Acute infection, incorrect medications, ACS Will do labs, duplex (pt with bilateral lower extremity edema), will give insulin 11/12/16 16:15 Laboratory Tests 11/11/16 11/11/16 11/12/16 06:30 06:30 14:10 WBC Hgb 9.1 L Hct 29.2 L Plt Count 217 Sodium Potassium Chloride Carbon Dioxide BUN 49 H Creatinine 2.3 H D Random Glucose 175 H D Creatine Kinase Troponin I Urine Nitrite Negative Ur Leukocyte Esterase Negative Urine RBC 2 Urine WBC 2 Acetone, Qual 11/12/16 11/12/16 14:10 14:26 WBC 8.2 D Hgb 9.0 L Hct 28.7 L Plt Count 237 Sodium 136 Potassium 4.8 Chloride 103 Carbon Dioxide 28 BUN 54 H Creatinine 2.4 H Random Glucose 385 H* D Creatine Kinase 102 Troponin I 0.05 Urine Nitrite Ur Leukocyte Esterase Urine RBC Urine WBC Acetone, Qual Negative L 11/12/16 16:48 Duplex negative Pt asked to call the office and follow up with Dr Margarita Ochoa Pt does not need to take antibiotics at this time Dr. Ochoa will follow up the Urine culture <Ankita Hunt - Last Filed: 11/13/16 08:33> *DC/Admit/Observation/Transfer - Attestations Scribe Attestion: 11/12/16 14:29 Documentation prepared by Verena Cintron, acting as medical affairs manager for Ankita Hunt MD/DO. <Verena Cintron - Last Filed: 11/12/16 17:20> - Discharge Dispostion Admit: No <Ankita Hunt - Last Filed: 11/13/16 08:33> Diagnosis at time of Disposition: Hyperglycemia - Discharge Dispostion Disposition: HOME Condition at time of disposition: Stable - Referrals Referrals: Iesha Combs MD [Primary Care Provider] - - Patient Instructions Printed Discharge Instructions: DI for Hyperglycemia -- Adult Additional Instructions: Yesenia Thank you for coming in to the ER today PLEASE TAKE YOUR MEDICATIONS PRESCRIBED PLEASE FOLLOW UP WITH DR OCHOA OR KRYSTAL RETURN TO THE ER FOR ANY OTHER CONCERNS OR COMPLAINTS
[2016-11-12 14:13] VITALS: TEMP 98.7; BMI 31.3
[2016-11-12] MEDS ORDERED: INSULIN REGULAR HUMAN 100 UNITS/ML *VIAL IVPUSH ONE (14:21)
[2016-11-12] MEDS ORDERED: INSULIN (NOVOLOG) ASPART 100 UNITS/ML 10ML VIAL ONE (14:23)
[2016-11-12 14:26] LABS: BASOPHIL 1.1 % (0-2.0); EOSINOPHIL 3.1 % (0-4.5); MCH 21.9 pg (25.7-33.7); MCHC 31.3 g/dl (32.0-36.0); MEAN CELL VOLUME 69.9 fl (80-96); MEAN PLT VOLUME 9.9 fl (7.5-11.1); NEUTROPHILS 67.7 % (42.8-82.8); PLATELET COUNT 237 K/MM3 (134-434); RDW 16.3 % (11.6-15.6); WHITE BLOOD COUNT 8.2 K/mm3 (4.0-10.0)
[2016-11-12 14:47] LABS: URINE APPEARANCE CLEAR; URINE BILIRUBIN NEGATIVE (NEGATIVE); URINE COLOR LTYELLOW; URINE GLUCOSE (UA) 3+ (NEGATIVE); URINE KETONE NEGATIVE (NEGATIVE); URINE LEUK ESTERASE NEGATIVE (NEGATIVE); URINE NITRITE NEGATIVE (NEGATIVE); URINE PROTEIN NEGATIVE (NEGATIVE); URINE UROBILINOGEN NEGATIVE E.U./dl (0.2-1.0)
[2016-11-12 14:49] LABS: URINE BLOOD 1+ (NEGATIVE)
[2016-11-12 14:51] LABS: GRANULAR CASTS 5 /lpf; URINE HYALINE CAST 5 /lpf; URINE MUCUS RARE; URINE RBC 2 /hpf (0-3); URINE WBC 2 /hpf (3-5)
[2016-11-12 14:54] LABS: ALBUMIN 2.9 g/dl (3.4-5.0); ANION GAP 5 (8-16); CALCIUM 8.8 mg/dL (8.5-10.1); CO2 28 mmol/L (21-32)
[2016-11-12 15:00] LABS: ALK PHOS 170 U/L (45-117); BILIRUBIN,TOTAL 0.4 mg/dL (0.2-1.0); CREATININE 2.4 mg/dL (0.55-1.02); SGPT/ALT 17 U/L (12-78); TOT PROT 7.1 g/dl (6.4-8.2); TROPONIN I 0.05 ng/ml (0.00-0.05)
[2016-11-12 15:01] LABS: SGOT/AST 19 U/L (15-37)
[2016-11-12 15:04] LABS: GLUCOSE,RANDOM 385 mg/dL (74-106)
[2016-11-12 15:36] LABS: ACETONE SERUM NEGATIVE (NEGATIVE)
[2016-11-12 16:09] LABS: ANISOCYTOSIS 1+; HYPOCHROMIA 2+; MICROCYTOSIS 1+; OVALOCYTES 1+; PLATELET COMMENT2 NO CLOTTING DETECTED; PLATELET ESTIMATE ADEQUATE (NORMAL); POIKILOCYTOSIS 1+; TARGET CELLS FEW
[2016-11-12 17:28] VITALS: BP 138/79; PULSE 79
== END 2016-11-12 17:28 | disposition home or self-care (01) ==
LOC: JER 13:29
PROC: 3E033VG Introduction of Insulin into Peripheral Vein, Percutaneous Approach (ICD-10-PCS; principal; 2016-11-12)
DX: E11.65 Type 2 diabetes mellitus with hyperglycemia (principal); Z79.4 Long term (current) use of insulin; M79.605 Pain in left leg; M79.604 Pain in right leg; I25.10 Atherosclerotic heart disease of native coronary artery without angina pectoris; I13.10 Hypertensive heart and chronic kidney disease without heart failure, with stage 1 through stage 4 chronic kidney disease, or unspecified chronic kidney disease; N18.9 Chronic kidney disease, unspecified; Z95.5 Presence of coronary angioplasty implant and graft
CPT/HCPCS: 36415; 80053; 81003; 81015; 82009; 82550; 84484; 85025; 87086; 93970-TC; 99284-25

== ENCOUNTER 2016-12-15 15:12 | Inpatient (IN) | payer OTHER ==
[2016-12-15] MEDS ORDERED: SODIUM CHLORIDE 1,000 ML IV ONE (15:28)
[2016-12-15 16:09] LABS: VENOUS BLOOD GAS HCO3 29.9 meq/L (22-29); VENOUS PH 7.37 (7.31-7.41)
[2016-12-15 16:17] LABS: BASOPHIL 1.4 % (0-2.0); EOSINOPHIL 3.7 % (0-4.5); MCHC 31.3 g/dl (32.0-36.0); MEAN CELL VOLUME 70.4 fl (80-96); MEAN PLT VOLUME 11.4 fl (7.5-11.1); NEUTROPHILS 65.8 % (42.8-82.8); PLATELET COUNT 199 K/MM3 (134-434); WHITE BLOOD COUNT 7.7 K/mm3 (4.0-10.0)
--- NOTE | 2016-12-15 16:47 | PDOC ---
History of Present Illness <Davi Ratliff - Last Filed: 12/15/16 18:38> - General History Source: Patient Exam Limitations: No Limitations - History of Present Illness Initial Comments: 12/15/16 18:42 The patient is a 71 year old with a past medical hx of HTN, coronary artery disease status post stents, IDDM, and CHF who presents to the ED complaining of elevated blood glucose levels. She notes that today her sugar was in 500s and then started reading high. She reports high blood sugar for several days. She notes that she uses her insulin 20u in am and 26u in the evening. She states that the aid checks her sugar daily and has bene high. Patient reports urinary frequency. The patient denies chest pain, SOB, cough The patient denies nausea, vomiting, diarrhea The patient denies dysuria, fever, chills Allergies: NKDA Social: No toxic habits reported Surgical: Stents PCP: Dr. Iesha Combs <Jes Koo - Last Filed: 12/15/16 18:42> - General Chief Complaint: Blood Sugar Problem Stated Complaint: BLOOD SUGER PROB. Time Seen by Provider: 12/15/16 15:17 Past History - Past Medical History Anemia: Yes (ISH) Asthma: No Cancer: No Cardiac Disorders: Yes (HCVD, chest pain syndrome) CVA: No COPD: No CHF: Yes Dementia: No Diabetes: Yes (TYPE II) GI Disorders: No Disorders: Yes (Renal Insuffiency) HTN: Yes Hypercholesterolemia: Yes Liver Disease: No Psychiatric Problems: Yes (anxiety) Suicide Attempt (Hx): No Seizures: No Thyroid Disease: No - Surgical History Abdominal Surgery: No Appendectomy: No Cardiac Surgery: Yes (STENTS/PPM 2007) Cholecystectomy: No Lung Surgery: No Neurologic Surgery: No Orthopedic Surgery: No - Immunization History Td Vaccination: Yes TDAP Vaccination: Yes Immunization Up to Date: Yes - Psycho/Social/Smoking Cessation Hx Anxiety: No Suicidal Ideation: No Smoking Status: No Smoking History: Unknown if ever smoked Have you smoked in the past 12 months: No Number of Cigarettes Smoked Daily: 0 Hx Alcohol Use: No Drug/Substance Use Hx: No Substance Use Type: None Hx Substance Use Treatment: No <Davi Ratliff - Last Filed: 12/15/16 18:38> <Jes Koo - Last Filed: 12/15/16 18:42> - Past Medical History Allergies/Adverse Reactions: Allergies Allergy/AdvReac Type Severity Reaction Status Date / Time No Known Allergies Allergy Verified 12/15/16 15:23 Home Medications: Ambulatory Orders Allopurinol [Zyloprim -] 100 mg PO DAILY 02/24/16 Aspirin [ASA -] 81 mg PO DAILY 02/24/16 Ferrous Sulfate 324 mg PO TID 02/24/16 Gabapentin 300 mg PO DAILY 02/24/16 Omeprazole 20 mg PO DAILY 10/02/16 Pyridoxine HCl (B-6) [Vitamin B6 -] 50 mg PO DAILY 10/02/16 Sevelamer Carbonate [Renvela -] 800 mg PO CM 10/02/16 Insulin (Levemir) [Levemir Vial] 10 units SQ BID #0 10/04/16 Hydralazine HCl [Apresoline -] 25 mg PO BID #60 tablet 11/11/16 Torsemide 20 mg PO DAILY #30 tablet 11/11/16 Review of Systems - Review of Systems Able to Perform ROS?: Yes Comments:: 12/15/16 18:42 CONSTITUTIONAL: No reported: Fever, Chills, Diaphoresis, Generalized Weakness, Malaise, Loss of Appetite HEENT: No reported: Rhinorrhea, Nasal Congestion, Throat Pain, Throat Swelling, Difficulty Swallowing, Mouth Swelling, Ear Pain, Eye Pain, Visual Changes CARDIOVASCULAR: No reported: Chest Pain, Syncope, Palpitations, Irregular Heart Rate, Lightheadedness, Peripheral Edema RESPIRATORY: No reported: Cough, Shortness of Breath, SOB with Exertion, Orthopnea, Wheezing , Stridor, Hemoptysis GASTROINTESTINAL: No reported: Abdominal pain, Abdominal Distension, Nausea, Vomiting, Diarrhea, Constipation, Melena, Hematochezia GENITOURINARY: Reported: frequency No reported: Dysuria, Urgency, Hesitancy, Flank Pain, Genital Pain MUSCULOSKELETAL: No reported: Myalgia, Arthralgia, Joint Swelling, Back pain, Neck Pain SKIN: No reported: Rash, Itching, Pallor HEMATOLOGIC/IMMUNOLOGIC: No reported: Easy Bleeding, Easy Bruising, Lymphadenopathy, Frequent infections ENDOCRINE: No reported: Unexplained Weight Gain, Unexplained Weight Loss, Heat Intolerance , Cold Intolerance NEUROLOGIC: No reported: Headache, Focal Weakness, Paresthesias, Vertigo, Lightheadedness, Unsteady Gait, Seizure, Mental Status Changes, Incontinence PSYCHIATRIC: No reported: Anxiety, Depression <Jes Koo - Last Filed: 12/15/16 18:42> *Physical Exam - Vital Signs Last Vital Signs Temp Pulse Resp BP Pulse Ox 97.8 F 84 20 184/85 100 12/15/16 15:21 12/15/16 15:21 12/15/16 15:21 12/15/16 15:21 12/15/16 15:21 <Davi Ratliff - Last Filed: 12/15/16 18:38> - Vital Signs Last Vital Signs Temp Pulse Resp BP Pulse Ox 97.8 F 84 20 184/85 100 12/15/16 15:21 12/15/16 15:21 12/15/16 15:21 12/15/16 15:21 12/15/16 15:21 - Physical Exam Comments: 12/15/16 18:42 GENERAL: The patient is awake, alert, and fully oriented, Nontoxic - in no acute distress. HEAD: Normocephalic, atraumatic. EYES: extraocular movements intact, sclera anicteric, conjunctiva clear. ENT: Normal voice, dry mucous membranes. NECK: Normal range of motion, supple LUNGS: Breath sounds equal, clear to auscultation bilaterally. No wheezes, no rhonchi, no rales. HEART: Regular rate and rhythm, normal S1 and S2 without murmur, rub or gallop. ABDOMEN: Soft, nontender, normoactive bowel sounds. No guarding, no rebound. No CVA tenderness EXTREMITIES: Normal range of motion, +pitting LE edema. NEUROLOGICAL: No facial assymetry, Normal speech, moving all 4 extremities spontaneously PSYCH: Normal mood, normal affect. SKIN: Warm, Dry, normal turgor, <Jes Koo - Last Filed: 12/15/16 18:42> Heart Score/ECG Review - ECG Impressions Comment:: 12/15/16 18:38 Twelve-lead EKG was performed and reviewed by me. ventricular paced rhthm rate of 85 <Davi Ratliff - Last Filed: 12/15/16 18:38> ED Treatment Course - LABORATORY CBC & Chemistry Diagram: 12/15/16 15:30 12/15/16 16:43 - ADDITIONAL ORDERS Additional order review: Laboratory Results 02/07/17 16:03 VBG pH 7.37 POC VBG pCO2 53.6 H POC VBG pO2 42.2 H D 12/15/16 15:30 RBC 4.70 MCV 70.4 L MCHC 31.3 L RDW 16.0 H MPV 11.4 H D Neutrophils % 65.8 Lymphocytes % 22.8 Monocytes % 6.3 Eosinophils % 3.7 Basophils % 1.4 - RADIOLOGY Radiology Studies Ordered: Category Date Time Status CHEST X-RAY PORTABLE* [RAD] Stat Radiology 12/15/16 15:27 Ordered - Medications Given in the ED: ED Medications Discontinued Medications Generic Name Dose Route Start Last Admin Trade Name Freq PRN Reason Stop Dose Admin Sodium Chloride 1,000 mls @ 1,000 mls/hr 12/15/16 15:28 12/15/16 16:16 Normal Saline - IV 12/15/16 16:27 1,000 mls/hr .Q1H ONE Administration <Davi Ratliff - Last Filed: 12/15/16 18:38> - LABORATORY CBC & Chemistry Diagram: 12/15/16 15:30 12/15/16 16:43 - ADDITIONAL ORDERS Additional order review: Laboratory Results 12/15/16 12/15/16 12/15/16 16:48 16:43 16:41 VBG pH POC VBG pCO2 POC VBG pO2 Sodium 132 L Potassium 5.3 H Chloride 90 L D Carbon Dioxide 34 H D Anion Gap 8 BUN 53 H Creatinine 2.6 H Creat Clearance w eGFR 18.09 Random Glucose 695 H* D Calcium 9.4 Phosphorus 3.4 Magnesium 1.9 Total Bilirubin 0.2 D AST 17 ALT 15 Alkaline Phosphatase 298 H D Creatine Kinase 94 Troponin I < 0.02 Total Protein 7.2 Albumin 3.2 L Acetone, Qual Negative L 12/15/16 12/15/16 12/15/16 16:03 15:30 15:30 VBG pH 7.37 POC VBG pCO2 53.6 H POC VBG pO2 42.2 H D Sodium Potassium Chloride Carbon Dioxide Anion Gap BUN Creatinine Creat Clearance w eGFR Random Glucose Calcium Phosphorus Cancelled Magnesium Cancelled Total Bilirubin AST ALT Alkaline Phosphatase Creatine Kinase Troponin I Total Protein Albumin Acetone, Qual Cancelled 12/15/16 15:30 VBG pH POC VBG pCO2 POC VBG pO2 Sodium Cancelled Potassium Cancelled Chloride Cancelled Carbon Dioxide Cancelled Anion Gap Cancelled BUN Cancelled Creatinine Cancelled Creat Clearance w eGFR Cancelled Random Glucose Cancelled Calcium Cancelled Phosphorus Magnesium Total Bilirubin Cancelled AST Cancelled ALT Cancelled Alkaline Phosphatase Cancelled Creatine Kinase Troponin I Total Protein Cancelled Albumin Cancelled Acetone, Qual 12/15/16 15:30 RBC 4.70 MCV 70.4 L MCHC 31.3 L RDW 16.0 H MPV 11.4 H D Neutrophils % 65.8 Lymphocytes % 22.8 Monocytes % 6.3 Eosinophils % 3.7 Basophils % 1.4 - Medications Given in the ED: ED Medications Discontinued Medications Generic Name Dose Route Start Last Admin Trade Name Freq PRN Reason Stop Dose Admin Sodium Chloride 1,000 mls @ 1,000 mls/hr 12/15/16 15:28 12/15/16 16:16 Normal Saline - IV 12/15/16 16:27 1,000 mls/hr .Q1H ONE Administration <Jes Koo - Last Filed: 12/15/16 18:42> Medical Decision Making - Medical Decision Making 12/15/16 16:47 71y iddm presents with hyperglycemia no other sypmtoms will r/o triggers for her hyperglycmia 12/15/16 18:35 pt given fluids and insuilin for her glucose of 695. case dw dr. byers labs reviewed - noted for hyperglycemia and mild renal insufficiency no signs of DKA will admit for further management of hyperglycemia as the patient is not reliable stable for med surg. Case discussed in detail with admitting physician including history, physical exam and ancillary studies. Admitting physician has assumed care for the patient, will follow all pending diagnostics and will complete the evaluation and treatment. A portion of this note was documented by scribe services under my direction. I have reviewed the details of the note, within reason, and agree with the documentation with the following case summary and management plan written by me <Davi Ratliff - Last Filed: 12/15/16 18:38> - Medical Decision Making 12/15/16 18:17 A call was placed to Dr. Teena Combs at his service. Case was discussed <Jes Koo - Last Filed: 12/15/16 18:42> *DC/Admit/Observation/Transfer - Discharge Dispostion Admit: Yes <Davi Ratliff - Last Filed: 12/15/16 18:38> - Attestations Scribe Attestion: 12/15/16 18:42 Documentation prepared by MINERVA Dennis, acting as medical billing supervisor for Davi Ratliff MD. <Jes Koo - Last Filed: 12/15/16 18:42> Diagnosis at time of Disposition: Renal insufficiency Uncontrolled diabetes mellitus Qualifiers: Diabetes mellitus type: other specified (including TOYIN) Diabetes mellitus complication status: with hyperglycemia Diabetes mellitus adjunct faculty for medical terminology insulin use : with adjunct faculty for medical terminology use Qualified Code(s): E13.65 - Other specified diabetes mellitus with hyperglycemia - Discharge Dispostion Condition at time of disposition: Guarded - Referrals Referrals: Iesha Combs MD [Primary Care Provider] -
[2016-12-15 17:39] LABS: ALBUMIN 3.2 g/dl (3.4-5.0); ANION GAP 8 (8-16); BILIRUBIN,TOTAL 0.2 mg/dL (0.2-1.0); CALCIUM 9.4 mg/dL (8.5-10.1); CO2 34 mmol/L (21-32); CREATININE 2.6 mg/dL (0.55-1.02); SGOT/AST 17 U/L (15-37); SGPT/ALT 15 U/L (12-78); TOT PROT 7.2 g/dl (6.4-8.2)
[2016-12-15 17:41] LABS: ALK PHOS 298 U/L (45-117); TROPONIN I < 0.02 ng/ml (0.00-0.05)
[2016-12-15 17:44] LABS: GLUCOSE,RANDOM 695 mg/dL (74-106)
[2016-12-15] MEDS ORDERED: INSULIN REGULAR HUMAN 100 UNITS/ML *VIAL IVPUSH ONE (17:45)
[2016-12-15 17:52] LABS: MAGNESIUM 1.9 mg/dL (1.8-2.4); PHOSPHOROUS 3.4 mg/dL (2.5-4.9)
[2016-12-15] MEDS ORDERED: INSULIN REGULAR HUMAN 100 UNITS/ML *VIAL ONE (17:55)
[2016-12-15 18:16] LABS: TROPONIN I < 0.02 ng/ml (0.00-0.05)
[2016-12-15 21:17] LABS: CALCIUM 9.7 mg/dL (8.5-10.1); CREATININE 2.4 mg/dL (0.55-1.02)
[2016-12-15] MEDS: SODIUM CHLORIDE 1,000 ML IV SCH (23:08)
[2016-12-15] MEDS: SEVELAMER CARBONATE 800 MG TAB (FP) PO SCH (23:08)
[2016-12-16] MEDS ORDERED: FERROUS SO4 325 MG TABLET (FP) ONE (06:05)
[2016-12-16] MEDS: FERROUS SO4 325 MG TABLET (FP) PO SCH ×3 (06:07→22:53)
[2016-12-16] MEDS ORDERED: traMADol HCL 50 MG TABLET PO PRN (08:03)
[2016-12-16] MEDS: SEVELAMER CARBONATE 800 MG TAB (FP) PO SCH ×3 (08:30→17:34)
[2016-12-16 08:46] LABS: CALCIUM 9.6 mg/dL (8.5-10.1); CREATININE 2.1 mg/dL (0.55-1.02)
--- NOTE | 2016-12-16 09:43 | HP ---
Admitting History and Physical - Primary Care Physician PCP: Iesha Combs - Admission Chief Complaint: elevated blood sugars History of Present Illness: 71 yrs old female admitted for uncontrolled blood sugars. 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 Seems she is not giving the correct amount of insulin. At times, she has very low blood sugars . 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) Pulmonary: Yes: COPD Gastrointestinal: Yes: GERD, Other (anemia, IRON DEF) Heme/Onc: Yes: Anemia Musculoskeletal: Yes: Osteoarthritis Rheumatology: Yes: Gout Endocrine: Yes: Diabetes Mellitus - Past Surgical History Past Surgical History: Yes: AICD, Stent - Smoking History Smoking history: Unknown if ever smoked Have you smoked in the past 12 months: No Aproximately how many cigarettes per day: 0 - Alcohol/Substance Use Hx Alcohol Use: No - Social History ADL: Support Services Home Medications - Allergies Allergies/Adverse Reactions: Allergies Allergy/AdvReac Type Severity Reaction Status Date / Time No Known Allergies Allergy Verified 12/15/16 15:23 - Home Medications Home Medications: Ambulatory Orders Allopurinol [Zyloprim -] 100 mg PO DAILY 02/24/16 Aspirin [ASA -] 81 mg PO DAILY 02/24/16 Ferrous Sulfate 324 mg PO TID 02/24/16 Gabapentin 300 mg PO DAILY 02/24/16 Omeprazole 20 mg PO DAILY 10/02/16 Pyridoxine HCl (B-6) [Vitamin B6 -] 50 mg PO DAILY 10/02/16 Sevelamer Carbonate [Renvela -] 800 mg PO CM 10/02/16 Insulin (Levemir) [Levemir Vial] 10 units SQ BID #0 10/04/16 Hydralazine HCl [Apresoline -] 25 mg PO BID #60 tablet 11/11/16 Torsemide 20 mg PO DAILY #30 tablet 11/11/16 Review of Systems - Review of Systems Musculoskeletal: reports: Extremity Pain Physical Examination Vital Signs: Vital Signs Temperature 97.5 F L 12/16/16 07:30 Pulse Rate 75 12/16/16 07:30 Respiratory Rate 18 12/16/16 07:30 Blood Pressure 146/77 12/16/16 07:30 O2 Sat by Pulse Oximetry (%) 98 12/16/16 07:30 Constitutional: Yes: No Distress, Calm Cardiovascular: Yes: Regular Rate and Rhythm Respiratory: Yes: CTA Bilaterally Gastrointestinal: Yes: Normal Bowel Sounds, Soft, Abdomen, Obese, Tenderness. No: Distention Extremities: Yes: Other (chronic skin changes B/L) Edema: Yes Edema: LLE: 1+, RLE: 1+ Psychiatric: Yes: Alert Labs: CBC, BMP 12/16/16 07:50 Imaging - Results Chest X-ray: Image Reviewed (clear) EKG: Image Reviewed (paced) Problem List - Problems (1) IDDM (insulin dependent diabetes mellitus) Code(s): E11.9 - TYPE 2 DIABETES MELLITUS WITHOUT COMPLICATIONS Z79.4 - FPC (CURRENT) USE OF INSULIN (2) Uncontrolled diabetes mellitus Code(s): E11.65 - TYPE 2 DIABETES MELLITUS WITH HYPERGLYCEMIA Qualifiers: Diabetes mellitus type: other specified (including TOYIN) Diabetes mellitus complication status: with hyperglycemia Diabetes mellitus fdc insulin use: with fdc use Qualified Code(s): E13.65 - Other specified diabetes mellitus with hyperglycemia (3) AICD (automatic cardioverter/defibrillator) present Code(s): Z95.810 - PRESENCE OF AUTOMATIC (IMPLANTABLE) CARDIAC DEFIBRILLATOR (4) Acute on chronic renal insufficiency Code(s): N28.9 - DISORDER OF KIDNEY AND URETER, UNSPECIFIED N18.9 - CHRONIC KIDNEY DISEASE, UNSPECIFIED Assessment/Plan PLAN Monitor blood sugars not in DKA Knitting Machine Tender consulted iv fluids check sono legs continue with meds DVT porphylaxis-- Heparin sc
[2016-12-16] MEDS ORDERED: traMADol HCL 50 MG TABLET ONE (09:58)
[2016-12-16] MEDS ORDERED: INSULIN DETEMIR 100 UNITS/ML MDV SQ ONE (09:59)
[2016-12-16] MEDS: INSULIN DETEMIR 100 UNITS/ML MDV SQ SCH ×2 (10:00→22:52)
[2016-12-16] MEDS: hydrALAZINE HCL 25 MG TABLET (FP) PO SCH ×2 (10:00→22:53)
[2016-12-16] MEDS: GABAPENTIN 300 MG CAPSULE (FP) PO SCH (10:00)
[2016-12-16] MEDS: ASPIRIN 81 MG CHEWABLE TABLETS PO SCH (10:00)
[2016-12-16] MEDS: ALLOPURINOL 100 MG TABLET (FP) PO SCH (10:00)
[2016-12-16] MEDS: PYRIDOXINE HCL (B-6) 50 MG TABLET (FP) PO SCH (10:00)
[2016-12-16] MEDS: PANTOPRAZOLE 20 MG TABLET (FP) PO SCH (10:00)
[2016-12-16] MEDS: HEPARIN NA (PORCINE) 5,000 UNITS/ML 1ML VIAL SQ SCH ×2 (10:00→22:52)
--- NOTE | 2016-12-16 13:52 | EKG ---
Test Reason : Blood Pressure : / mmHG Vent. Rate : 085 BPM Atrial Rate : 085 BPM P-R Int : 000 ms QRS Dur : 172 ms QT Int : 434 ms P-R-T Axes : 080 114 073 degrees QTc Int : 516 ms Suspect unspecified pacemaker failure Ventricular-paced rhythm ABNORMAL ECG WHEN COMPARED WITH ECG OF 12-NOV-2016 15:17, VENT. RATE HAS INCREASED BY 2 BPM Confirmed by HOLLIS NGO MD ([id number]) on 12/16/2016 1:52:01 PM Referred By: Confirmed By:HOLLIS NGO MD
[2016-12-16 14:46] VITALS: BMI 35.2
[2016-12-16] MEDS ORDERED: PNEUMOC 13-VAL CONJ-DIP CRM/PF 0.5 ML DISP.SYRIN IM ONE (14:47)
--- NOTE | 2016-12-16 16:03 | CONSULT ---
Consult Consult Specialty:: Endocrinology Referred by:: Dr Margarita Saab Reason for Consultation:: Hyperglycemia - History of Present Illness Chief Complaint: Hyperglycemia History of Present Illness: This is a 71 year old female with a past medical hx of HTN, coronary artery disease status post stents, T2DM on Insulin, and CHF who presents to the ED complaining of elevated blood glucose levels. She notes that today her sugar was in 500s and then started reading high. She reports high blood sugar for several days. She notes that she uses her insulin 20u in am and 26u in the evening. She states that the aid checks her sugar daily and has been high. Blood sugar on admission was 695. Patient also reported urinary frequency. - History Source History Provided By: Patient, Medical Record - Past Medical History Cardio/Vascular: Yes: CAD (PCI/STENT), HTN, Hyperlipdemia, Other ([employer]-D) Pulmonary: Yes: COPD Gastrointestinal: Yes: GERD, Other (anemia, IRON DEF) Musculoskeletal: Yes: Osteoarthritis Rheumatology: Yes: Gout Endocrine: Yes: Diabetes Mellitus - Past Surgical History Past Surgical History: Yes: AICD, Stent - Alcohol/Substance Use Hx Alcohol Use: No - Smoking History Smoking history: Unknown if ever smoked Have you smoked in the past 12 months: No Aproximately how many cigarettes per day: 0 - Social History ADL: Support Services Home Medications - Allergies Allergies/Adverse Reactions: Allergies Allergy/AdvReac Type Severity Reaction Status Date / Time No Known Allergies Allergy Verified 12/15/16 15:23 - Home Medications Home Medications: Ambulatory Orders Allopurinol [Zyloprim -] 100 mg PO DAILY 02/24/16 Aspirin [ASA -] 81 mg PO DAILY 02/24/16 Ferrous Sulfate 324 mg PO TID 02/24/16 Gabapentin 300 mg PO DAILY 02/24/16 Omeprazole 20 mg PO DAILY 10/02/16 Pyridoxine HCl (B-6) [Vitamin B6 -] 50 mg PO DAILY 10/02/16 Sevelamer Carbonate [Renvela -] 800 mg PO CM 10/02/16 Insulin (Levemir) [Levemir Vial] 10 units SQ BID #0 10/04/16 Hydralazine HCl [Apresoline -] 25 mg PO BID #60 tablet 11/11/16 Torsemide 20 mg PO DAILY #30 tablet 11/11/16 Review of Systems - Review of Systems Constitutional: reports: No Symptoms Eyes: reports: No Symptoms HENT: reports: No Symptoms Neck: reports: No Symptoms Cardiovascular: reports: No Symptoms Respiratory: reports: No Symptoms Gastrointestinal: reports: No Symptoms Genitourinary: reports: Frequency Musculoskeletal: reports: No Symptoms Neurological: reports: No Symptoms Endocrine: reports: No Symptoms Physical Exam Vital Signs: Vital Signs Temperature 97.6 F 12/16/16 15:05 Pulse Rate 76 12/16/16 15:05 Respiratory Rate 20 12/16/16 15:05 Blood Pressure 147/76 12/16/16 15:05 O2 Sat by Pulse Oximetry (%) 97 12/16/16 15:16 Constitutional: Yes: Well Nourished, No Distress Eyes: Yes: Conjunctiva Clear, EOM Intact HENT: Yes: Atraumatic, Normocephalic Neck: Yes: Supple, Trachea Midline Cardiovascular: Yes: Regular Rate and Rhythm Respiratory: Yes: Regular, CTA Bilaterally Gastrointestinal: Yes: Normal Bowel Sounds Extremities: Yes: WNL Edema: No Neurological: Yes: Alert, Oriented Labs: CBC, BMP 12/16/16 07:50 Assessment/Plan AP: DM Uncontrolled BGM QACHS Levemir 20 BID Novolog SS coverage Nutrition consult Will F/U HTN CAD GERC
[2016-12-16] MEDS ORDERED: INSULIN (NOVOLOG) ASPART 100 UNITS/ML 10ML VIAL ONE ×2 (17:08→18:02)
[2016-12-16] MEDS: INSULIN SLIDING SCALE (NOVOLOG) 1 VIAL SQ SCH ×2 (17:24→22:59)
[2016-12-16] MEDS: SODIUM CHLORIDE 1,000 ML IV SCH (22:53)
[2016-12-17] MEDS: FERROUS SO4 325 MG TABLET (FP) PO SCH ×3 (06:23→21:39)
[2016-12-17] MEDS: SODIUM CHLORIDE 1,000 ML IV SCH ×2 (06:29→21:47)
[2016-12-17] MEDS: INSULIN SLIDING SCALE (NOVOLOG) 1 VIAL SQ SCH ×4 (06:31→21:42)
[2016-12-17] MEDS: SEVELAMER CARBONATE 800 MG TAB (FP) PO SCH ×3 (08:31→17:36)
[2016-12-17] MEDS: HEPARIN NA (PORCINE) 5,000 UNITS/ML 1ML VIAL SQ SCH ×2 (10:32→21:39)
[2016-12-17] MEDS: PYRIDOXINE HCL (B-6) 50 MG TABLET (FP) PO SCH (10:32)
[2016-12-17] MEDS: PANTOPRAZOLE 20 MG TABLET (FP) PO SCH (10:32)
[2016-12-17] MEDS: ASPIRIN 81 MG CHEWABLE TABLETS PO SCH (10:32)
[2016-12-17] MEDS: hydrALAZINE HCL 25 MG TABLET (FP) PO SCH ×2 (10:32→21:39)
[2016-12-17] MEDS: GABAPENTIN 300 MG CAPSULE (FP) PO SCH (10:32)
[2016-12-17] MEDS: ALLOPURINOL 100 MG TABLET (FP) PO SCH (10:32)
[2016-12-17] MEDS ORDERED: INSULIN (NOVOLOG) ASPART 100 UNITS/ML 10ML VIAL ONE ×4 (10:53→21:37)
[2016-12-17] MEDS: INSULIN DETEMIR 100 UNITS/ML MDV SQ SCH ×2 (11:04→21:42)
--- NOTE | 2016-12-17 17:39 | PN ---
Progress Note, Physician Chief Complaint: no pain on legs, no distress - Current Medication List Current Medications: Active Medications Allopurinol (Zyloprim -) 100 mg PO DAILY [facility] Last Admin: 12/17/16 10:32 Dose: 100 mg Aspirin (Asa -) 81 mg PO DAILY [facility] Last Admin: 12/17/16 10:32 Dose: 81 mg Ferrous Sulfate (Feosol -) 325 mg PO TID [facility] Last Admin: 12/17/16 15:07 Dose: 325 mg Gabapentin (Neurontin -) 300 mg PO DAILY [facility] Last Admin: 12/17/16 10:32 Dose: 300 mg Heparin Sodium (Porcine) (Heparin -) 5,000 unit SQ BID [facility] Last Admin: 12/17/16 10:32 Dose: 5,000 unit Hydralazine HCl (Apresoline -) 25 mg PO BID [facility] Last Admin: 12/17/16 10:32 Dose: 25 mg Sodium Chloride (Normal Saline -) 1,000 mls @ 100 mls/hr IV ASDIR [facility] Last Admin: 12/17/16 06:29 Dose: 100 mls/hr Insulin Aspart (Novolog Vial Sliding Scale -) 1 vial SQ TIDAC [facility] PRN Reason: Protocol Last Admin: 12/17/16 11:04 Dose: 8 units Insulin Aspart (Novolog Vial Sliding Scale -) 1 vial SQ HS [facility] PRN Reason: Protocol Last Admin: 12/16/16 22:59 Dose: 2 units Insulin Detemir (Levemir Vial) 20 units SQ BID [facility] Last Admin: 12/17/16 11:04 Dose: 20 units Pantoprazole Sodium (Protonix -) 20 mg PO DAILY [facility] Last Admin: 12/17/16 10:32 Dose: 20 mg Pyridoxine HCl (Vitamin B6 -) 50 mg PO DAILY [facility] Last Admin: 12/17/16 10:32 Dose: 50 mg Sevelamer Carbonate (Renvela -) 800 mg PO CM [facility] Last Admin: 12/17/16 12:17 Dose: 800 mg Tramadol HCl (Ultram -) 50 mg PO Q6H PRN PRN Reason: PAIN - Objective Vital Signs: Vital Signs Temperature 98.1 F 12/17/16 14:40 Pulse Rate 79 12/17/16 14:40 Respiratory Rate 17 12/17/16 14:40 Blood Pressure 114/55 12/17/16 14:40 O2 Sat by Pulse Oximetry (%) 96 12/17/16 11:00 Constitutional: Yes: No Distress, Calm Cardiovascular: Yes: Regular Rate and Rhythm Respiratory: Yes: CTA Bilaterally Gastrointestinal: Yes: Normal Bowel Sounds, Soft. No: Distention, Tenderness Extremities: Yes: Other (c/c venous changes) Edema: No Psychiatric: Yes: Alert Labs: CBC, BMP 12/16/16 07:50 - ....Imaging Ultrasound: Report Reviewed (no DVT) Problem List - Problems (1) IDDM (insulin dependent diabetes mellitus) Code(s): E11.9 - TYPE 2 DIABETES MELLITUS WITHOUT COMPLICATIONS Z79.4 - PENITENTIARY (CURRENT) USE OF INSULIN (2) Uncontrolled diabetes mellitus Code(s): E11.65 - TYPE 2 DIABETES MELLITUS WITH HYPERGLYCEMIA Qualifiers: Diabetes mellitus type: other specified (including TOYIN) Diabetes mellitus complication status: with hyperglycemia Diabetes mellitus long term care phlebotomist insulin use: with long term care phlebotomist use Qualified Code(s): E13.65 - Other specified diabetes mellitus with hyperglycemia (3) AICD (automatic cardioverter/defibrillator) present Code(s): Z95.810 - PRESENCE OF AUTOMATIC (IMPLANTABLE) CARDIAC DEFIBRILLATOR (4) Acute on chronic renal insufficiency Code(s): N28.9 - DISORDER OF KIDNEY AND URETER, UNSPECIFIED N18.9 - CHRONIC KIDNEY DISEASE, UNSPECIFIED Assessment/Plan PLAN Monitor blood sugars F[employer] Steamer evaluation appreciated iv fluids continue with meds DVT porphylaxis-- Heparin sc
[2016-12-18] MEDS: FERROUS SO4 325 MG TABLET (FP) PO SCH (06:12)
[2016-12-18] MEDS: INSULIN SLIDING SCALE (NOVOLOG) 1 VIAL SQ SCH ×2 (06:13→12:10)
[2016-12-18 08:28] LABS: CALCIUM 9.1 mg/dL (8.5-10.1); CREATININE 1.8 mg/dL (0.55-1.02)
[2016-12-18] MEDS: SEVELAMER CARBONATE 800 MG TAB (FP) PO SCH ×2 (08:45→12:11)
[2016-12-18] MEDS: SODIUM CHLORIDE 1,000 ML IV SCH (08:45)
--- NOTE | 2016-12-18 09:36 | PN ---
Progress Note (short form) - Note Progress Note: Feels better BGM better Vital Signs Period Temp Pulse Resp BP Sys/Etienne Pulse Ox Last 24 Hr 98.1 F-98.6 F 77-92 16-20 114-144/55-95 95-96 PE: AOx3 Neck: Supple HEENT: PEERL, EOMI Lungs: CTA CVS: S1S2 Abd: Benign Ext: No edema Neuro: No focal deficit CMP Sodium 142 mmol/L (136-145) 12/18/16 06:00 Potassium 4.6 mmol/L (3.5-5.1) 12/18/16 06:00 Chloride 105 mmol/L (98-107) 12/18/16 06:00 Carbon Dioxide 31 mmol/L (21-32) 12/18/16 06:00 Anion Gap 6 (8-16) L 12/18/16 06:00 BUN 36 mg/dL (7-18) H 12/18/16 06:00 Creatinine 1.8 mg/dL (0.55-1.02) H 12/18/16 06:00 Creat Clearance w eGFR 18.09 (>60) 12/15/16 16:43 POC Glucometer 134 UNITS (()) 12/18/16 06:10 Random Glucose 125 mg/dL (74-106) H D 12/18/16 06:00 Hemoglobin A1c % 9.8 % (4.8-6.0) H D 12/16/16 07:50 Calcium 9.1 mg/dL (8.5-10.1) 12/18/16 06:00 Phosphorus 3.4 mg/dL (2.5-4.9) 12/15/16 16:41 Magnesium 1.9 mg/dL (1.8-2.4) 12/15/16 16:41 Total Bilirubin 0.2 mg/dL (0.2-1.0) D 12/15/16 16:43 AST 17 U/L (15-37) 12/15/16 16:43 ALT 15 U/L (12-78) 12/15/16 16:43 Alkaline Phosphatase 298 U/L (45-117) H D 12/15/16 16:43 Creatine Kinase 94 IU/L (26-192) 12/15/16 16:43 Troponin I < 0.02 ng/ml (0.00-0.05) 12/15/16 16:43 Total Protein 7.2 g/dl (6.4-8.2) 12/15/16 16:43 Albumin 3.2 g/dl (3.4-5.0) L 12/15/16 16:43 Current Medications Generic Name Dose Route Start Last Admin Trade Name Randi PRN Reason Stop Dose Admin Allopurinol 100 mg 12/16/16 10:00 12/17/16 10:32 Zyloprim - PO 100 mg DAILY MARTIN Administration Aspirin 81 mg 12/16/16 10:00 12/17/16 10:32 Asa - PO 81 mg DAILY MARTIN Administration Ferrous Sulfate 325 mg 12/16/16 06:00 12/18/16 06:12 Feosol - PO 325 mg TID MARTIN Administration Gabapentin 300 mg 12/16/16 10:00 12/17/16 10:32 Neurontin - PO 300 mg DAILY MARTIN Administration Heparin Sodium (Porcine) 5,000 unit 12/16/16 10:00 12/17/16 21:39 Heparin - SQ 5,000 unit BID MARTIN Administration Hydralazine HCl 25 mg 12/16/16 10:00 12/17/16 21:39 Apresoline - PO 25 mg BID AMRTIN Administration Sodium Chloride 1,000 mls @ 100 mls/hr 12/15/16 22:45 12/18/16 08:45 Normal Saline - IV 100 mls/hr ASDIR MARTIN Administration Insulin Aspart 1 vial 12/16/16 16:30 12/18/16 06:13 Novolog Vial Sliding Scale - SQ 2 units TIDAC MARTIN Administration Protocol Insulin Aspart 1 vial 12/16/16 22:00 12/17/16 21:42 Novolog Vial Sliding Scale - SQ Not Given HS [facility] Protocol Insulin Detemir 20 units 12/16/16 10:00 12/17/16 21:42 Levemir Vial SQ 20 units BID MARTIN Administration Pantoprazole Sodium 20 mg 12/16/16 10:00 12/17/16 10:32 Protonix - PO 20 mg DAILY MARTIN Administration Pyridoxine HCl 50 mg 12/16/16 10:00 12/17/16 10:32 Vitamin B6 - PO 50 mg DAILY MARTIN Administration Sevelamer Carbonate 800 mg 12/15/16 22:45 12/18/16 08:45 Renvela - PO 800 mg CM MARTIN Administration Tramadol HCl 50 mg 12/16/16 08:03 Ultram - PO Q6H PRN PAIN AP: DM Uncontrolled; improving blood sugar, No Hypoglycemic episode Left message for pt's brother to call me back to discuss patient's care. BGM QACHS Levemir 20 BID Novolog SS coverage Nutrition consult Will F/U HTN CAD GERC
[2016-12-18 11:01] VITALS: BP 133/65; PULSE 80; TEMP 98.4
[2016-12-18] MEDS: INSULIN DETEMIR 100 UNITS/ML MDV SQ SCH (11:19)
[2016-12-18] MEDS: PYRIDOXINE HCL (B-6) 50 MG TABLET (FP) PO SCH (11:20)
[2016-12-18] MEDS: PANTOPRAZOLE 20 MG TABLET (FP) PO SCH (11:20)
[2016-12-18] MEDS: ASPIRIN 81 MG CHEWABLE TABLETS PO SCH (11:20)
[2016-12-18] MEDS: ALLOPURINOL 100 MG TABLET (FP) PO SCH (11:20)
[2016-12-18] MEDS: GABAPENTIN 300 MG CAPSULE (FP) PO SCH (11:21)
[2016-12-18] MEDS: hydrALAZINE HCL 25 MG TABLET (FP) PO SCH (11:21)
[2016-12-18] MEDS: HEPARIN NA (PORCINE) 5,000 UNITS/ML 1ML VIAL SQ SCH (11:21)
--- NOTE | 2016-12-18 11:21 | DS ---
Physical Examination Vital Signs: Vital Signs Temperature 98.4 F 12/18/16 10:00 Pulse Rate 80 12/18/16 10:00 Respiratory Rate 20 12/18/16 10:00 Blood Pressure 133/65 12/18/16 10:00 O2 Sat by Pulse Oximetry (%) 95 12/17/16 22:00 Labs: CBC, BMP 12/18/16 06:00 Discharge Summary Reason For Visit: RENAL INSUFFICENCY/UNCONTROLLED DIAB LUIS DANIEL Current Active Problems Fever (Acute) Hypoglycemia (Acute) IDDM (insulin dependent diabetes mellitus) (Acute) Renal insufficiency (Acute) SOB (shortness of breath) on exertion (Acute) Uncontrolled diabetes mellitus (Acute) Condition: Guarded - Instructions Referrals: Iesha Combs MD [Staff Physician] - - Home Medications Comprehensive Discharge Medication List: Ambulatory Orders Allopurinol [Zyloprim -] 100 mg PO DAILY 02/24/16 Aspirin [ASA -] 81 mg PO DAILY 02/24/16 Ferrous Sulfate 324 mg PO TID 02/24/16 Gabapentin 300 mg PO DAILY 02/24/16 Omeprazole 20 mg PO DAILY 10/02/16 Pyridoxine HCl (B-6) [Vitamin B6 -] 50 mg PO DAILY 10/02/16 Sevelamer Carbonate [Renvela -] 800 mg PO CM 10/02/16 Insulin (Levemir) [Levemir Vial] 10 units SQ BID #0 10/04/16 Hydralazine HCl [Apresoline -] 25 mg PO BID #60 tablet 11/11/16 Torsemide 20 mg PO DAILY #30 tablet 11/11/16
--- NOTE | 2016-12-18 11:24 | DS ---
Physical Examination Vital Signs: Vital Signs Temperature 98.4 F 12/18/16 10:00 Pulse Rate 80 12/18/16 10:00 Respiratory Rate 20 12/18/16 10:00 Blood Pressure 133/65 12/18/16 10:00 O2 Sat by Pulse Oximetry (%) 95 12/17/16 22:00 Labs: CBC, BMP 12/18/16 06:00 <Iesha Combs - Last Filed: 12/18/16 11:23> Vital Signs: Vital Signs Temperature 98.4 F 12/18/16 10:00 Pulse Rate 80 12/18/16 10:00 Respiratory Rate 20 12/18/16 10:00 Blood Pressure 133/65 12/18/16 10:00 O2 Sat by Pulse Oximetry (%) 95 12/17/16 22:00 Findings/Remarks: Comfortable. No complaints. All follow ups noted. Denies any pain. Blood sugar much better. Constitutional: Yes: Calm Eyes: Yes: Conjunctiva Clear Neck: Yes: Supple Cardiovascular: Yes: Regular Rate and Rhythm Respiratory: Yes: CTA Bilaterally Gastrointestinal: Yes: Soft Edema: LLE: Trace, RLE: Trace Neurological: Yes: Alert Labs: CBC, BMP 12/18/16 06:00 <Jes Koo - Last Filed: 12/18/16 11:33> Discharge Summary Reason For Visit: RENAL INSUFFICENCY/UNCONTROLLED DIAB LUIS DANIEL Current Active Problems Fever (Acute) Hypoglycemia (Acute) IDDM (insulin dependent diabetes mellitus) (Acute) Renal insufficiency (Acute) SOB (shortness of breath) on exertion (Acute) Uncontrolled diabetes mellitus (Acute) - Home Medications Comprehensive Discharge Medication List: Ambulatory Orders Allopurinol [Zyloprim -] 100 mg PO DAILY 02/24/16 Aspirin [ASA -] 81 mg PO DAILY 02/24/16 Ferrous Sulfate 324 mg PO TID 02/24/16 Gabapentin 300 mg PO DAILY 02/24/16 Omeprazole 20 mg PO DAILY 10/02/16 Pyridoxine HCl (B-6) [Vitamin B6 -] 50 mg PO DAILY 10/02/16 Sevelamer Carbonate [Renvela -] 800 mg PO CM 10/02/16 Hydralazine HCl [Apresoline -] 25 mg PO BID #60 tablet 11/11/16 Torsemide 20 mg PO DAILY #30 tablet 11/11/16 Insulin (Levemir) [Levemir Vial] 20 units SQ BID ml 12/18/16 Insulin Sliding Scale [Novolog Vial Sliding Scale -] 1 vial SQ TIDAC units 08/24 Tramadol HCl [Ultram -] 50 mg PO Q6H PRN #30 tablet MDD 4 12/18/16 <Iesha Combs - Last Filed: 12/18/16 11:23> Current Active Problems Fever (Acute) Hypoglycemia (Acute) IDDM (insulin dependent diabetes mellitus) (Acute) Renal insufficiency (Acute) SOB (shortness of breath) on exertion (Acute) Uncontrolled diabetes mellitus (Acute) Hospital Course: The patient is a 71 year old with a past medical hx of HTN, coronary artery disease status post stents, IDDM, and CHF who presents to the ED complaining of elevated blood glucose levels. She notes that today her sugar was in 500s and then started reading high. She reports high blood sugar for several days. She notes that she uses her insulin 20u in am and 26u in the evening. She states that the aid checks her sugar daily and has bene high. Patient reports urinary frequency. Patient's sugar was in 600s Treated her with levamir Now much better I strongly suspect that patient is not taking correct insulin doses at home This was confirmed with her aid also during last admission Patient been coming to the hospital with very high and also very low sugars Patient refuses to go to NH Will discharge at home today Will follow more closely in the office Follow up next week Plan discussed with nursing staff also Meds reconciled Documentation prepared by Jes Koo, acting as a medical assistant ob gyn for Iesha Combs MD. - Home Medications Comprehensive Discharge Medication List: Ambulatory Orders Allopurinol [Zyloprim -] 100 mg PO DAILY 02/24/16 Aspirin [ASA -] 81 mg PO DAILY 02/24/16 Ferrous Sulfate 324 mg PO TID 02/24/16 Gabapentin 300 mg PO DAILY 02/24/16 Omeprazole 20 mg PO DAILY 10/02/16 Pyridoxine HCl (B-6) [Vitamin B6 -] 50 mg PO DAILY 10/02/16 Sevelamer Carbonate [Renvela -] 800 mg PO CM 10/02/16 Hydralazine HCl [Apresoline -] 25 mg PO BID #60 tablet 11/11/16 Torsemide 20 mg PO DAILY #30 tablet 11/11/16 Insulin (Levemir) [Levemir Vial] 20 units SQ BID ml 12/18/16 Insulin Sliding Scale [Novolog Vial Sliding Scale -] 1 vial SQ TIDAC units 08/24 Tramadol HCl [Ultram -] 50 mg PO Q6H PRN #30 tablet MDD 4 12/18/16 <Jes Koo - Last Filed: 12/18/16 11:33> Condition: Guarded - Instructions Referrals: Iesha Combs MD [Staff Physician] -
[2016-12-18] MEDS ORDERED: INSULIN (NOVOLOG) ASPART 100 UNITS/ML 10ML VIAL ONE (12:09)
== END 2016-12-18 12:59 | disposition home or self-care (01) | DRG 638 ==
LOC: JER 15:12 → JERBED 18:37 → J5S 12-16 14:47
PROVIDERS: ADMIT Internal Medicine; ATTEND Internal Medicine
DX: E11.65 Type 2 diabetes mellitus with hyperglycemia (principal); I13.0 Hypertensive heart and chronic kidney disease with heart failure and stage 1 through stage 4 chronic kidney disease, or unspecified chronic kidney disease; Z79.4 Long term (current) use of insulin; D50.9 Iron deficiency anemia, unspecified; I25.10 Atherosclerotic heart disease of native coronary artery without angina pectoris; Z95.5 Presence of coronary angioplasty implant and graft; I50.9 Heart failure, unspecified; F41.9 Anxiety disorder, unspecified; E78.5 Hyperlipidemia, unspecified; K21.9 Gastro-esophageal reflux disease without esophagitis; M19.90 Unspecified osteoarthritis, unspecified site; Z95.810 Presence of automatic (implantable) cardiac defibrillator; E11.22 Type 2 diabetes mellitus with diabetic chronic kidney disease; N18.9 Chronic kidney disease, unspecified
CPT/HCPCS: 36415; 71010-TC; 80048; 80053; 82009; 82550; 82803; 83036; 83735; 84100; 84484; 85025; 93005; 93010; 93970-TC; 99285-25; J1644

== ENCOUNTER 2017-02-19 22:09 | Inpatient (IN) | payer OTHER ==
--- NOTE | 2017-02-19 22:25 | PDOC ---
History of Present Illness - General History Source: Patient, EMS, Friend Exam Limitations: No Limitations - History of Present Illness Initial Comments: 02/20/17 00:33 The patient is a 71 year old female with past medical history of IDDM, CAD, hypertension, and kidney disease who presents to the ED with complaints of low blood sugar and malaise. The patient states that her neighbors noted she was lethargic all day. When the patient took her blood sugar, it was noted to be 45. When EMS arrived, the patient was given dextrose in which her glucose went up to only 46. Upon presentation to the ED, the patients glucose was at 70. The patient reports that she hasnt been feeling like herself since yesterday and reports a loss of appetite, but still taking her insulin as directed. The patient denies any recent illness, fever, chills, nausea, vomiting, diarrhea , cough, shortness of breath, chest pain, blurred vision, LOC, or numbness/ tingling. <Tamanna Alexander - Last Filed: 02/20/17 02:45> <Ruth Boucher - Last Filed: 02/20/17 21:56> - General Stated Complaint: Blood Sugar Problem Time Seen by Provider: 02/19/17 22:24 Past History <Tamanna Alexander - Last Filed: 02/20/17 02:45> - Past Medical History Anemia: Yes (ISH) Asthma: No Cancer: No Cardiac Disorders: Yes (HCVD, chest pain syndrome) CVA: No COPD: No CHF: Yes Dementia: No Diabetes: Yes (TYPE II) GI Disorders: No Disorders: Yes (Renal Insuffiency) HTN: Yes Hypercholesterolemia: Yes Liver Disease: No Psychiatric Problems: Yes (anxiety) Suicide Attempt (Hx): No Seizures: No Thyroid Disease: No - Surgical History Abdominal Surgery: No Appendectomy: No Cardiac Surgery: Yes (STENTS/PPM 2007) Cholecystectomy: No Lung Surgery: No Neurologic Surgery: No Orthopedic Surgery: No - Immunization History Td Vaccination: Yes TDAP Vaccination: Yes Immunization Up to Date: Yes - Psycho/Social/Smoking Cessation Hx Anxiety: No Suicidal Ideation: No Smoking Status: No Smoking History: Never smoked Have you smoked in the past 12 months: No Number of Cigarettes Smoked Daily: 0 Hx Alcohol Use: No Drug/Substance Use Hx: No Substance Use Type: None Hx Substance Use Treatment: No <CitlalyRuth - Last Filed: 02/20/17 21:56> - Past Medical History Allergies/Adverse Reactions: Allergies Allergy/AdvReac Type Severity Reaction Status Date / Time No Known Allergies Allergy Verified 02/19/17 22:34 Home Medications: Ambulatory Orders Allopurinol [Zyloprim -] 100 mg PO DAILY 02/24/16 Aspirin [ASA -] 81 mg PO DAILY 02/24/16 Ferrous Sulfate 324 mg PO TID 02/24/16 Gabapentin 300 mg PO DAILY 02/24/16 Omeprazole 20 mg PO DAILY 10/02/16 Pyridoxine HCl (B-6) [Vitamin B6 -] 50 mg PO DAILY 10/02/16 Insulin (Levemir) [Levemir Vial] 20 units SQ BID ml 12/18/16 Insulin Sliding Scale [Novolog Vial Sliding Scale -] 1 vial SQ TIDAC units 08/24 Tramadol HCl [Ultram -] 50 mg PO Q6H PRN #30 tablet MDD 4 12/18/16 Review of Systems - Review of Systems Able to Perform ROS?: Yes Comments:: 02/20/17 00:34 GENERAL/CONSTITUTIONAL: Present: weakness No fever or chills. HEAD, EYES, EARS, NOSE AND THROAT: No change in vision. No ear pain or discharge. No sore throat. CARDIOVASCULAR: No chest pain or shortness of breath. RESPIRATORY: No cough, wheezing, or hemoptysis. GASTROINTESTINAL: No nausea, vomiting, diarrhea or constipation. GENITOURINARY: No dysuria, frequency, or change in urination. MUSCULOSKELETAL: No joint or muscle swelling or pain. No neck or back pain. SKIN: No rash NEUROLOGIC: No headache, vertigo, loss of consciousness, or change in strength/ sensation. ENDOCRINE: No increased thirst. No abnormal weight change. HEMATOLOGIC/LYMPHATIC: No anemia, easy bleeding, or history of blood clots. ALLERGIC/IMMUNOLOGIC: No hives or skin allergy. All Other Systems: Reviewed and Negative <Tamanna Alexander - Last Filed: 02/20/17 02:45> *Physical Exam - Vital Signs Last Vital Signs Temp Pulse Resp BP Pulse Ox 98.0 F 79 20 132/69 96 02/19/17 22:31 02/19/17 22:31 02/19/17 22:31 02/19/17 22:31 02/19/17 22:31 - Physical Exam Comments: 02/20/17 00:34 GENERAL: Awake, alert, and fully oriented, in no acute distress HEAD: No signs of trauma EYES: PERRLA, EOMI, sclera anicteric, conjunctiva clear ENT: Auricles normal inspection, hearing grossly normal, nares patent, oropharynx clear without exudates. Moist mucosa NECK: Normal ROM, supple, no lymphadenopathy, JVD, or masses LUNGS: Breath sounds equal, clear to auscultation bilaterally. No wheezes, and no crackles HEART: Regular rate and rhythm, normal S1 and S2, no murmurs, rubs or gallops ABDOMEN: Soft, nontender, normoactive bowel sounds. No guarding, no rebound. No masses EXTREMITIES: Bilateral pitting edema up to the knees. Normal range of motion. No clubbing or cyanosis. No cords, erythema, or tenderness NEUROLOGICAL: Cranial nerves II through XII grossly intact. Normal speech, normal gait SKIN: Warm, Dry, normal turgor, no rashes or lesions noted. <Tamanna Alexander - Last Filed: 02/20/17 02:45> ED Treatment Course - LABORATORY CBC & Chemistry Diagram: 02/19/17 23:24 02/19/17 23:24 <Tamanna Alexander - Last Filed: 02/20/17 02:45> - LABORATORY CBC & Chemistry Diagram: 02/19/17 23:24 02/19/17 23:24 <Ruth Boucher - Last Filed: 02/20/17 21:56> Medical Decision Making - Medical Decision Making 02/20/17 02:45 EXAM: DUPLEX VASCULAR US-2 LEGS HISTORY:Bilateral leg swelling COMPARISON: None. TECHNIQUE: Ultrasound of the lower extremities with color Doppler and wave form analysis was performed FINDINGS:Bilateral lower extremity veins demonstrate normal compressibility, flow, and augmentation. There is edema in the subcutaneous fat IMPRESSION: No deep vein thrombosis THIS DOCUMENT HAS BEEN ELECTRONICALLY SIGNED Minh Young MD <Tamanna Alexander - Last Filed: 02/20/17 02:45> - Medical Decision Making 02/20/17 01:38 Patient Name: Yesenia Kyle THIS IS A PRELIMINARY REPORT FROM [facility] DATE OF SERVICE: 2017-02-19 23:47:28.0 IMAGES: 2 EXAM: CHEST X-RAY PORTABLE * HISTORY:Hypoglycemia COMPARISON: None. TECHNIQUE: Single AP portable view of the chest FINDINGS:Heart and mediastinal contours are within normal limits. Central airways are normally aerated. Cardiac pacemaking leads are noted overlying the right atrium and right ventricle. There are no focal regions of airspace consolidation. Lung volumes are diminished. IMPRESSION: Cardiac pacemaker in place. THIS DOCUMENT HAS BEEN ELECTRONICALLY SIGNED 02/20/17 21:56 Pt will be admitted to her PMD for hypoglycemia and for CHF and thirdspacing exacerbation. <Ruth Boucher - Last Filed: 02/20/17 21:56> *DC/Admit/Observation/Transfer - Attestations Scribe Attestion: 02/20/17 00:35 Documentation prepared by Tamanna Alexander, acting as medical administrative technician for Ruth Boucher MD. <Tamanna Alexander - Last Filed: 02/20/17 02:45> - Discharge Dispostion Admit: Yes <Ruth Boucher - Last Filed: 02/20/17 21:56> Diagnosis at time of Disposition: Hypoglycemia, CHF (congestive heart failure)
[2017-02-19 22:56] VITALS: BMI 40.1
[2017-02-20 00:22] LABS: BASOPHIL 0.5 % (0-2.0); EOSINOPHIL 3.3 % (0-4.5); MCH 22.1 pg (25.7-33.7); MCHC 31.5 g/dl (32.0-36.0); MEAN CELL VOLUME 70.1 fl (80-96); MEAN PLT VOLUME 10.1 fl (7.5-11.1); NEUTROPHILS 63.8 % (42.8-82.8); PLATELET COUNT 196 K/MM3 (134-434); RDW 16.3 % (11.6-15.6); WHITE BLOOD COUNT 8.1 K/mm3 (4.0-10.0)
[2017-02-20 00:59] LABS: BILIRUBIN,TOTAL 0.2 mg/dL (0.2-1.0); CALCIUM 8.8 mg/dL (8.5-10.1); COCKROFT - GAULT 51.765; CREATININE 1.8 mg/dL (0.55-1.02); TOT PROT 6.6 g/dl (6.4-8.2)
[2017-02-20] MEDS ORDERED: FUROSEMIDE 40 MG/4 ML INJECTABLE VIAL IVPUSH ONE (01:16)
[2017-02-20] MEDS ORDERED: FUROSEMIDE 40 MG/4 ML INJECTABLE VIAL ONE ×2 (01:20→13:16)
[2017-02-20] MEDS ORDERED: ACETAMINOPHEN 325 MG TABLET (FP) PO PRN (10:31)
[2017-02-20] MEDS ORDERED: DOCUSATE SODIUM 100 MG CAPSULE (FP) PO PRN (10:31)
[2017-02-20] MEDS ORDERED: DEXTROSE 5%-0.45% SALINE 1,000 ML IV SCH (10:45)
[2017-02-20] MEDS ORDERED: INSULIN SLIDING SCALE (NOVOLOG) 1 VIAL SQ SCH ×2 (11:00)
--- NOTE | 2017-02-20 12:03 | HP ---
Admitting History and Physical - Primary Care Physician PCP: Iesha Combs - Admission Chief Complaint: low blood sugar History of Present Illness: The patient is a 71 year old female with past medical history of IDDM, CAD, hypertension, and kidney disease who presents to the ED with complaints of low blood sugar and malaise. The patient states that her neighbors noted she was lethargic all day. When the patient took her blood sugar, it was noted to be 45. When EMS arrived, the patient was given dextrose in which her glucose went up to only 46. Upon presentation to the ED, the patients glucose was at 70. The patient reports that she hasnt been feeling like herself since yesterday and reports a loss of appetite, but still taking her insulin as directed. The patient denies any recent illness, fever, chills, nausea, vomiting, diarrhea , cough, shortness of breath, chest pain, blurred vision, LOC, or numbness/ tingling. pt also has + 3 edema of legs Pt being admitted One of many admissions for pt as she is unable to manage herself/ compliance with meds-- but refuses to go to [facility] Pt seen by me in er Better denies cp. breathing non laboured Pt received 40 mg of lasix in er Had discussed with er physician vamp liner. 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) Pulmonary: Yes: COPD Gastrointestinal: Yes: GERD, Other (anemia, IRON DEF) Renal/: Yes: Renal Inusuff Heme/Onc: Yes: Anemia Musculoskeletal: Yes: Osteoarthritis Rheumatology: Yes: Gout Endocrine: Yes: Diabetes Mellitus - Past Surgical History Past Surgical History: Yes: AICD, Stent - Smoking History Smoking history: Never smoked Have you smoked in the past 12 months: No Aproximately how many cigarettes per day: 0 - Alcohol/Substance Use Hx Alcohol Use: No - Social History ADL: Support Services Home Medications - Allergies Allergies/Adverse Reactions: Allergies Allergy/AdvReac Type Severity Reaction Status Date / Time No Known Allergies Allergy Verified 02/19/17 22:34 - Home Medications Home Medications: Ambulatory Orders Allopurinol [Zyloprim -] 100 mg PO DAILY 02/24/16 Aspirin [ASA -] 81 mg PO DAILY 02/24/16 Ferrous Sulfate 324 mg PO TID 02/24/16 Gabapentin 300 mg PO DAILY 02/24/16 Omeprazole 20 mg PO DAILY 10/02/16 Pyridoxine HCl (B-6) [Vitamin B6 -] 50 mg PO DAILY 10/02/16 Insulin (Levemir) [Levemir Vial] 20 units SQ BID ml 12/18/16 Insulin Sliding Scale [Novolog Vial Sliding Scale -] 1 vial SQ TIDAC units 08/24 Tramadol HCl [Ultram -] 50 mg PO Q6H PRN #30 tablet MDD 4 12/18/16 Review of Systems Unable to obtain ROS, reason: see [place] - Review of Systems Constitutional: reports: Weakness Eyes: reports: No Symptoms Neck: reports: No Symptoms Cardiovascular: reports: No Symptoms Respiratory: reports: No Symptoms Gastrointestinal: reports: No Symptoms Genitourinary: reports: No Symptoms Musculoskeletal: reports: Extremity Pain Neurological: reports: No Symptoms Psychiatric: reports: No Symptoms Physical Examination Vital Signs: Vital Signs Temperature 97.5 F L 02/20/17 10:20 Pulse Rate 77 02/20/17 10:20 Respiratory Rate 20 02/20/17 10:20 Blood Pressure 146/61 02/20/17 10:20 O2 Sat by Pulse Oximetry (%) 96 02/20/17 10:20 Constitutional: Yes: No Distress, Calm Eyes: Yes: Conjunctiva Clear Neck: Yes: Supple, Trachea Midline Cardiovascular: Yes: Regular Rate and Rhythm Respiratory: Yes: Diminished Gastrointestinal: Yes: Soft, Abdomen, Obese Edema: LLE: 3+, RLE: 3+ Neurological: Yes: Alert Psychiatric: Yes: Alert Imaging - Results Chest X-ray: Report Reviewed, Image Reviewed Cat Scan: Report Reviewed Ultrasound: Report Reviewed Problem List - Problems (1) CHF (congestive heart failure) Code(s): I50.9 - HEART FAILURE, UNSPECIFIED (2) Hypoglycemia Code(s): E16.2 - HYPOGLYCEMIA, UNSPECIFIED (3) IDDM (insulin dependent diabetes mellitus) Code(s): E11.9 - TYPE 2 DIABETES MELLITUS WITHOUT COMPLICATIONS Z79.4 - CUSTODIAL (CURRENT) USE OF INSULIN (4) SOB (shortness of breath) on exertion Code(s): R06.02 - SHORTNESS OF BREATH (5) AICD (automatic cardioverter/defibrillator) present Code(s): Z95.810 - PRESENCE OF AUTOMATIC (IMPLANTABLE) CARDIAC DEFIBRILLATOR (6) Anemia Code(s): D64.9 - ANEMIA, UNSPECIFIED Qualifiers: Anemia type: iron deficiency (7) CAD (coronary artery disease) Code(s): I25.10 - ATHSCL HEART DISEASE OF [place] CORONARY ARTERY W/O ANG PCTRS Qualifiers: Coronary Disease-Associated Artery/Lesion type: [place] artery [place] vs. transplanted heart: [place] heart Associated angina: without angina Qualified Code(s): I25.10 - Atherosclerotic heart disease of [place] coronary artery without angina pectoris (8) HTN (hypertension) Code(s): I10 - ESSENTIAL (PRIMARY) HYPERTENSION Qualifiers: Hypertension type: essential hypertension (9) History of percutaneous coronary intervention Code(s): Z98.89 - OTHER SPECIFIED POSTPROCEDURAL STATES * DO NOT USE * Assessment/Plan Admit Monitor bgm Complaince discussed-- major issues Endo consult i/v lasix cardiology eval will follow
--- NOTE | 2017-02-20 13:11 | CONSULT ---
Consult Consult Specialty:: Endocrinology Referred by:: Dr Combs Reason for Consultation:: Hypoglycemia - History of Present Illness Chief Complaint: Hypoglycemia History of Present Illness: This is a 71 year old female with history of DM on Insulin, CAD, hypertension , and kidney disease who presents to the ED with complaints of low blood sugar and malaise. The patient states that her neighbors noted she was lethargic all day. When the patient took her blood sugar, it was noted to be 45. When EMS arrived, the patient was given dextrose in which her glucose went up to only 46. Upon presentation to the ED, the patients glucose was at 70. Talked to pt with her cousin at bedside. Pt ate usual breakfast but didn't eat much for lunch. She however took her usual dose of Insulin. 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) Pulmonary: Yes: COPD Gastrointestinal: Yes: GERD, Other (anemia, IRON DEF) Musculoskeletal: Yes: Osteoarthritis Rheumatology: Yes: Gout Endocrine: Yes: Diabetes Mellitus - Past Surgical History Past Surgical History: Yes: AICD, Stent - Alcohol/Substance Use Hx Alcohol Use: No - Smoking History Smoking history: Never smoked Have you smoked in the past 12 months: No Aproximately how many cigarettes per day: 0 - Social History ADL: Support Services Home Medications - Allergies Allergies/Adverse Reactions: Allergies Allergy/AdvReac Type Severity Reaction Status Date / Time No Known Allergies Allergy Verified 02/19/17 22:34 - Home Medications Home Medications: Ambulatory Orders Allopurinol [Zyloprim -] 100 mg PO DAILY 02/24/16 Aspirin [ASA -] 81 mg PO DAILY 02/24/16 Ferrous Sulfate 324 mg PO TID 02/24/16 Gabapentin 300 mg PO DAILY 02/24/16 Omeprazole 20 mg PO DAILY 10/02/16 Pyridoxine HCl (B-6) [Vitamin B6 -] 50 mg PO DAILY 10/02/16 Insulin (Levemir) [Levemir Vial] 20 units SQ BID ml 12/18/16 Insulin Sliding Scale [Novolog Vial Sliding Scale -] 1 vial SQ TIDAC units 08/24 Tramadol HCl [Ultram -] 50 mg PO Q6H PRN #30 tablet MDD 4 12/18/16 Review of Systems - Review of Systems Constitutional: reports: No Symptoms Eyes: reports: No Symptoms HENT: reports: No Symptoms Neck: reports: No Symptoms Cardiovascular: reports: No Symptoms Respiratory: reports: No Symptoms Gastrointestinal: reports: No Symptoms Genitourinary: reports: No Symptoms Musculoskeletal: reports: No Symptoms Integumentary: reports: No Symptoms Neurological: reports: No Symptoms Endocrine: reports: No Symptoms Physical Exam Vital Signs: Vital Signs Temperature 97.5 F L 02/20/17 10:20 Pulse Rate 77 02/20/17 10:20 Respiratory Rate 20 02/20/17 10:20 Blood Pressure 146/61 02/20/17 10:20 O2 Sat by Pulse Oximetry (%) 96 02/20/17 10:20 Constitutional: Yes: Well Nourished, No Distress Eyes: Yes: Conjunctiva Clear, EOM Intact HENT: Yes: Atraumatic, Normocephalic Neck: Yes: Supple, Trachea Midline Cardiovascular: Yes: Regular Rate and Rhythm Respiratory: Yes: Regular, CTA Bilaterally Gastrointestinal: Yes: Normal Bowel Sounds, Soft Musculoskeletal: Yes: WNL Extremities: Yes: Other (Edema) Edema: Yes Neurological: Yes: Alert, Oriented Imaging - Results Chest X-ray: Report Reviewed Cat Scan: Report Reviewed Assessment/Plan AP; DM Uncontrolled Hypoglycemia Non compliant with diet, meds and instructions Missed last office appointments Discussed need for compliance with diet and medication. Discussed need for portion cotrol, no premeal insulin if she is not going to eat and half dose if the apetite is poor and she is going to eat less than usual. Pt verbalizes understanding BGM QACHS Novolog SS coverage HBA1c Nutrition consult Will F/u CAD HTN CKD
[2017-02-20] MEDS: FUROSEMIDE 40 MG/4 ML INJECTABLE VIAL IVPB SCH (13:16)
[2017-02-20] MEDS: INSULIN SLIDING SCALE (NOVOLOG) 1 VIAL SQ SCH ×2 (18:44→21:18)
[2017-02-20] MEDS: FERROUS SO4 325 MG TABLET (FP) PO SCH (18:44)
[2017-02-20] MEDS: traMADol HCL 50 MG TABLET PO PRN (21:15)
[2017-02-20] MEDS: HEPARIN NA (PORCINE) 5,000 UNITS/ML 1ML VIAL SQ SCH (21:16)
[2017-02-21] MEDS: traMADol HCL 50 MG TABLET PO PRN (05:44)
[2017-02-21] MEDS: FUROSEMIDE 40 MG/4 ML INJECTABLE VIAL IVPB SCH ×2 (05:45→14:35)
[2017-02-21] MEDS: INSULIN SLIDING SCALE (NOVOLOG) 1 VIAL SQ SCH ×4 (07:01→21:04)
[2017-02-21] MEDS ORDERED: INSULIN (NOVOLOG) ASPART 100 UNITS/ML 10ML VIAL ONE ×3 (07:05→17:40)
[2017-02-21 08:24] LABS: BASOPHIL 1.1 % (0-2.0); EOSINOPHIL 5.2 % (0-4.5); MCH 22.1 pg (25.7-33.7); MCHC 31.5 g/dl (32.0-36.0); MEAN CELL VOLUME 70.1 fl (80-96); MEAN PLT VOLUME 9.5 fl (7.5-11.1); NEUTROPHILS 55.7 % (42.8-82.8); PLATELET COUNT 192 K/MM3 (134-434); WHITE BLOOD COUNT 6.4 K/mm3 (4.0-10.0)
[2017-02-21 08:56] LABS: ALBUMIN 3.1 g/dl (3.4-5.0); CALCIUM 8.9 mg/dL (8.5-10.1); COCKROFT - GAULT 47.1325; CREATININE 1.8 mg/dL (0.55-1.02); MAGNESIUM 1.6 mg/dL (1.8-2.4)
[2017-02-21 08:58] LABS: BILIRUBIN,TOTAL 0.5 mg/dL (0.2-1.0); TOT PROT 7.1 g/dl (6.4-8.2)
[2017-02-21] MEDS: PANTOPRAZOLE 20 MG TABLET (FP) PO SCH (10:14)
[2017-02-21] MEDS: ALLOPURINOL 100 MG TABLET (FP) PO SCH (10:14)
[2017-02-21] MEDS: FERROUS SO4 325 MG TABLET (FP) PO SCH ×3 (10:14→17:22)
[2017-02-21] MEDS: PYRIDOXINE HCL (B-6) 50 MG TABLET (FP) PO SCH (10:15)
[2017-02-21] MEDS: ASPIRIN 81 MG CHEWABLE TABLETS PO SCH (10:15)
[2017-02-21] MEDS: HEPARIN NA (PORCINE) 5,000 UNITS/ML 1ML VIAL SQ SCH ×2 (10:15→21:12)
[2017-02-21] MEDS: GABAPENTIN 300 MG CAPSULE (FP) PO SCH (10:16)
--- NOTE | 2017-02-21 10:36 | PN ---
Progress Note (short form) - Note Progress Note: Feels good blood sugar acceptable No Hypos Vital Signs Period Temp Pulse Resp BP Sys/Etienne Pulse Ox Last 24 Hr 97.4 F-98.7 F 78-93 19-20 129-157/60-91 95-97 PE: AOx3 Neck: Supple, No JVD HEENT: PERRL, EOMI Lungs: CTa Abd: Benign Ext: +Edema Neuro: No focal deficti CMP Sodium 145 mmol/L (136-145) 02/21/17 07:20 Potassium 4.5 mmol/L (3.5-5.1) 02/21/17 07:20 Chloride 107 mmol/L (98-107) 02/21/17 07:20 Carbon Dioxide 30 mmol/L (21-32) 02/21/17 07:20 Anion Gap 8 (8-16) 02/21/17 07:20 BUN 35 mg/dL (7-18) H 02/21/17 07:20 Creatinine 1.8 mg/dL (0.55-1.02) H 02/21/17 07:20 Creat Clearance w eGFR 27.66 (>60) 02/21/17 07:20 POC Glucometer 137 UNITS (()) 02/21/17 05:51 Random Glucose 128 mg/dL (74-106) H D 02/21/17 07:20 Calcium 8.9 mg/dL (8.5-10.1) 02/21/17 07:20 Magnesium 1.6 mg/dL (1.8-2.4) L 02/21/17 07:20 Total Bilirubin 0.5 mg/dL (0.2-1.0) D 02/21/17 07:20 AST 15 U/L (15-37) D 02/21/17 07:20 ALT 16 U/L (12-78) 02/21/17 07:20 Alkaline Phosphatase 161 U/L (45-117) H 02/21/17 07:20 B-Natriuretic Peptide 1177.40 pg/ml (5-125) H 02/19/17 23:24 Total Protein 7.1 g/dl (6.4-8.2) 02/21/17 07:20 Albumin 3.1 g/dl (3.4-5.0) L 02/21/17 07:20 Current Medications Generic Name Dose Route Start Last Admin Trade Name Freq PRN Reason Stop Dose Admin Acetaminophen 650 mg 02/20/17 10:31 Tylenol - PO Q4H PRN FEVER OR PAIN Allopurinol 100 mg 02/21/17 10:00 02/21/17 10:14 Zyloprim - PO 100 mg DAILY MARTIN Administration Aspirin 81 mg 02/21/17 10:00 02/21/17 10:15 Asa - PO 81 mg DAILY MARTIN Administration Docusate Sodium 100 mg 02/20/17 10:31 Colace - PO BID PRN CONSTIPATION Ferrous Sulfate 325 mg 02/20/17 17:30 02/21/17 10:14 Feosol - PO 325 mg TIDCM MARTIN Administration Furosemide 40 mg 02/20/17 14:00 02/21/17 05:45 Lasix Injection - IVPB 40 mg BID@0600,1400 MARTIN Administration Gabapentin 300 mg 02/21/17 10:00 02/21/17 10:16 Neurontin - PO 300 mg DAILY MARTIN Administration Heparin Sodium (Porcine) 5,000 unit 02/20/17 22:00 02/21/17 10:15 Heparin - SQ 5,000 unit BID MARTIN Administration Insulin Aspart 1 vial 02/20/17 13:22 02/21/17 07:01 Novolog Vial Sliding Scale - SQ 2 units TIDAC MARTIN Administration Protocol Insulin Aspart 1 vial 02/20/17 22:00 02/20/17 21:18 Novolog Vial Sliding Scale - SQ 4 units HS MARTIN Administration Protocol Pantoprazole Sodium 20 mg 02/21/17 10:00 02/21/17 10:14 Protonix - PO 20 mg DAILY MARTIN Administration Pyridoxine HCl 50 mg 02/21/17 10:00 02/21/17 10:15 Vitamin B6 - PO 50 mg DAILY MARTIN Administration Tramadol HCl 50 mg 02/20/17 10:23 02/21/17 05:44 Ultram - PO 50 mg Q6H PRN Administration PAIN AP; DM Uncontrolled Hypoglycemia Continue current Novolog coverage Add Levermir 8 units daily at HS Discussed need for compliance with diet and medication. Discussed need for portion cotrol, no premeal insulin if she is not going to eat and half dose if the apetite is poor and she is going to eat less than usual. Pt verbalizes understanding BGM QACHS HBA1c Nutrition consult Will F/u CAD HTN CKD
--- NOTE | 2017-02-21 12:01 | PN ---
Progress Note (short form) - Note Progress Note: Pt seen/ examined feels well sugar better decreased leg edema Vital Signs Temp 97.4 F L 02/21/17 09:24 Pulse 80 02/21/17 09:24 Resp 20 02/21/17 09:24 BP 129/60 02/21/17 09:24 Pulse Ox 96 02/20/17 21:00 Intake & Output 02/20/17 02/21/17 02/21/17 23:59 11:59 23:59 Intake Total 300 675 Balance 300 675 Weight 256 lb 233 lb Intake: Oral 300 675 Other: Voiding Method Bedside Commode Toilet Bowel Movement No No Height 5 ft 7 in Body Mass Index (BMI) 40.1 Active Medications Acetaminophen (Tylenol -) 650 mg PO Q4H PRN PRN Reason: FEVER OR PAIN Allopurinol (Zyloprim -) 100 mg PO DAILY [facility] Last Admin: 02/21/17 10:14 Dose: 100 mg Aspirin (Asa -) 81 mg PO DAILY [facility] Last Admin: 02/21/17 10:15 Dose: 81 mg Docusate Sodium (Colace -) 100 mg PO BID PRN PRN Reason: CONSTIPATION Ferrous Sulfate (Feosol -) 325 mg PO TIDCM [facility] Last Admin: 02/21/17 10:14 Dose: 325 mg Furosemide (Lasix Injection -) 40 mg IVPB BID@0600,1400 [facility] Last Admin: 02/21/17 05:45 Dose: 40 mg Gabapentin (Neurontin -) 300 mg PO DAILY [facility] Last Admin: 02/21/17 10:16 Dose: 300 mg Heparin Sodium (Porcine) (Heparin -) 5,000 unit SQ BID [facility] Last Admin: 02/21/17 10:15 Dose: 5,000 unit Insulin Aspart (Novolog Vial Sliding Scale -) 1 vial SQ TIDAC [facility] PRN Reason: Protocol Last Admin: 02/21/17 07:01 Dose: 2 units Insulin Aspart (Novolog Vial Sliding Scale -) 1 vial SQ HS [facility] PRN Reason: Protocol Last Admin: 02/20/17 21:18 Dose: 4 units Insulin Detemir (Levemir Vial) 8 units SQ HS [facility] Pantoprazole Sodium (Protonix -) 20 mg PO DAILY [facility] Last Admin: 02/21/17 10:14 Dose: 20 mg Pyridoxine HCl (Vitamin B6 -) 50 mg PO DAILY [facility] Last Admin: 02/21/17 10:15 Dose: 50 mg Tramadol HCl (Ultram -) 50 mg PO Q6H PRN PRN Reason: PAIN Last Admin: 02/21/17 05:44 Dose: 50 mg CBC, BMP 02/21/17 07:20 02/21/17 07:20 Physical Examination Constitutional: Yes: No Distress, Calm Eyes: Yes: Conjunctiva Clear Neck: Yes: Supple, Trachea Midline Cardiovascular: Yes: Regular Rate and Rhythm Respiratory: Yes: Diminished Gastrointestinal: Yes: Soft, Abdomen, Obese Edema: decreased Neurological: Yes: Alert Psychiatric: Yes: Alert Imaging - Results Chest X-ray: Report Reviewed, Image Reviewed Cat Scan: Report Reviewed Ultrasound: Report Reviewed Assessment/Plan better Monitor bgm Compliance discussed-again today- major issues Endo consult noted / discussed i/v lasix decreased weight f/u lytes will follow Problem List - Problems (1) CHF (congestive heart failure) Code(s): I50.9 - HEART FAILURE, UNSPECIFIED (2) Hypoglycemia Code(s): E16.2 - HYPOGLYCEMIA, UNSPECIFIED (3) IDDM (insulin dependent diabetes mellitus) Code(s): E11.9 - TYPE 2 DIABETES MELL[place] WITHOUT COMPLICATIONS Z79.4 - 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 transplanted heart: [place] heart Associated angina: without angina Qualified Code(s): I25.10 - Atherosclerotic heart disease of [place] coronary artery without angina pectoris (8) HTN (hypertension) Code(s): I10 - ESSENTIAL (PRIMARY) HYPERTENSION Qualifiers: Hypertension type: essential hypertension Qualified Code(s): I10 - Essential (primary) hypertension (9) History of percutaneous coronary intervention Code(s): Z98.89 - OTHER SPECIFIED POSTPROCEDURAL STATES * DO NOT USE *
--- NOTE | 2017-02-21 13:52 | PN ---
Progress Note (short form) - Note Progress Note: Chief Complaint: Events noted, notes reviewed, hypoglycemia, dyspnea with increasing bilateral lower extremity edema History of Present Illness: Seen and examined. Full consult dictated Medications: Current Medications Acetaminophen (Tylenol -) 650 mg PO Q4H PRN PRN Reason: FEVER OR PAIN Allopurinol (Zyloprim -) 100 mg PO DAILY [facility] Last Admin: 02/21/17 10:14 Dose: 100 mg Aspirin (Asa -) 81 mg PO DAILY [facility] Last Admin: 02/21/17 10:15 Dose: 81 mg Docusate Sodium (Colace -) 100 mg PO BID PRN PRN Reason: CONSTIPATION Ferrous Sulfate (Feosol -) 325 mg PO TIDCM [facility] Last Admin: 02/21/17 12:11 Dose: 325 mg Furosemide (Lasix Injection -) 40 mg IVPB BID@0600,1400 [facility] Last Admin: 02/21/17 05:45 Dose: 40 mg Gabapentin (Neurontin -) 300 mg PO DAILY [facility] Last Admin: 02/21/17 10:16 Dose: 300 mg Heparin Sodium (Porcine) (Heparin -) 5,000 unit SQ BID [facility] Last Admin: 02/21/17 10:15 Dose: 5,000 unit Insulin Aspart (Novolog Vial Sliding Scale -) 1 vial SQ TIDAC [facility] PRN Reason: Protocol Last Admin: 02/21/17 12:11 Dose: 4 units Insulin Aspart (Novolog Vial Sliding Scale -) 1 vial SQ HS [facility] PRN Reason: Protocol Last Admin: 02/20/17 21:18 Dose: 4 units Insulin Detemir (Levemir Vial) 8 units SQ HS [facility] Pantoprazole Sodium (Protonix -) 20 mg PO DAILY [facility] Last Admin: 02/21/17 10:14 Dose: 20 mg Pyridoxine HCl (Vitamin B6 -) 50 mg PO DAILY [facility] Last Admin: 02/21/17 10:15 Dose: 50 mg Tramadol HCl (Ultram -) 50 mg PO Q6H PRN PRN Reason: PAIN Last Admin: 02/21/17 05:44 Dose: 50 mg Vital Signs: Last Vital Signs Temp Pulse Resp BP Pulse Ox 97.4 F L 80 20 129/60 96 02/21/17 09:24 02/21/17 09:24 02/21/17 09:24 02/21/17 09:24 02/21/17 09:00 Neck: Supple Negative JVD no bruit appreciated Respiratory: Diminished breath sounds at the bases Bilaterally Cardiovascular: S1 S2 Regular Rate and Rhythm Gastrointestinal: Soft Benign Normal Bowel Sounds Ext: Bilateral 1-2+ Edema Labs: CBC, BMP 02/21/17 07:20 02/21/17 07:20 Hepatic Panel Total Bilirubin 0.5 mg/dL (0.2-1.0) D 02/21/17 07:20 AST 15 U/L (15-37) D 02/21/17 07:20 ALT 16 U/L (12-78) 02/21/17 07:20 Alkaline Phosphatase 161 U/L (45-117) H 02/21/17 07:20 Albumin 3.1 g/dl (3.4-5.0) L 02/21/17 07:20 Assessment/Plan ASSESSMENT: 1. Clinical presentation is consistent with class I-II [place] [employer] classification left ventricular failure related to acute on chronic exacerbation of diastolic/systolic left ventricular dysfunction 2. 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 HTN 5. DM, Hypoglycemia 6. Hypercholesterolemia 7. Pulmonary hypertension related to the above-noted diastolic left ventricular dysfunction 8. Chronic kidney disease. 9. Anemia PLAN: 1. Resume Carvedilol 2. Resume ACEI or ARBS with caution and close monitoring of renal function 3. Continue IV Lasix with close monitoring of renal function and electrolytes, and may consider the addition of Aldactone therapy 4. Resume Atorvastatin 5. Continuation of Ecotrin therapy Marissa Ribera M.D.
[2017-02-21] MEDS: VALSARTAN 40 MG TABLET (FP) PO SCH (15:00)
[2017-02-21] MEDS: SPIRONOLACTONE 25 MG TABLET (FP) PO SCH (15:01)
--- NOTE | 2017-02-21 15:36 | CONS ---
DATE OF CONSULTATION: 02/21/2017 CONSULTATION REQUESTED BY: Iesha Combs MD CHIEF COMPLAINT: Hypoglycemia, increasing dyspnea, and bilateral lower extremity edema. 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 The patient reported increasing bilateral lower extremity edema for the last several days. In addition, reported increasing dyspnea with mild to moderate physical activity. The patient denied any orthopnea or paroxysmal nocturnal dyspnea. Patient denied any chest discomfort. Patient denied any palpitations, dizziness, lightheadedness, or syncope. Patient reports fatigue and tiredness. PAST MEDICAL HISTORY: Coronary artery disease, status post percutaneous coronary intervention and stenting, angina pectoris, diastolic/systolic left ventricular dysfunction with chronic class 1 to 2 [place] Heart Association Classification left ventricular failure, post BARREL RAISER HELPER-D, pulmonary hypertension, mild to moderate in severity, related to the above-noted left ventricular dysfunction, hypertensive cardiovascular disease, diabetes mellitus, hypercholesterolemia, chronic kidney disease, degenerative joint disease. SOCIAL HISTORY: Nonsmoker. Denies alcohol intake. FAMILY HISTORY: No family history of coronary artery disease. ALLERGIES: None reported. MEDICAL THERAPY AT HOME: Ecotrin 81 mg once a day; Plavix 75 mg once a day; Coreg 6.25 mg twice a day; simvastatin 20 mg once a day; Lasix 60 mg twice a day; allopurinol 100 mg once a day; glipizide 5 mg, half a tablet twice a day; insulin as prescribed; Neurontin 300 mg once a day; omeprazole 20 mg once a day; lisinopril 5 mg once a day. REVIEW OF SYSTEMS: Head/Neck: She denies headache, photophobia, blurring of vision. Respiratory: She denies cough, sputum production. Cardiovascular: As noted above. Gastrointestinal: She denies nausea, vomiting, diarrhea, abdominal discomfort. Genitourinary: No symptoms reported. Musculoskeletal: History of degenerative joint disease. PHYSICAL EXAMINATION: Vital Signs: Blood pressure is 129/64 mmHg, pulse rate is 80 beats per minute. Head/Neck: Pupils equal and reactive to light and accommodation. Extraocular muscles are intact. Anicteric sclerae. Negative JVD. No bruits appreciated. Chest: Diminished breath sounds at the bases bilaterally. Cardiovascular: S1, S2, regular, grade 1/6 systolic ejection murmur. No rubs or gallops. Abdomen: Soft, benign. No masses palpated. Extremities: Bilateral 1 to 2+ edema, decreased peripheral pulses. No calf tenderness. CBC revealed white cell count 6.4, hemoglobin 9.6, platelet count 192. Basic metabolic profile revealed sodium 145, potassium 4.5, BUN 38, creatinine 1.8, glucose 128. Report was noted. EKG not available. ASSESSMENT: 1. Clinical presentation consistent with class 1 to 2 [place] Heart Association Classification left ventricular failure related to [id number] exacerbation of systolic/diastolic left ventricular dysfunction. 2. Coronary artery disease, status post percutaneous coronary intervention and stenting. 3. Angina pectoris. 4. Post cardiac resynchronization therapy defibrillator. 5. Hypertensive cardiovascular disease. 6. Diabetes mellitus with transient hypoglycemia. 7. Hypercholesterolemia. 8. Pulmonary hypertension related to the above-noted systolic/diastolic left ventricular dysfunction. 9. Chronic kidney disease. 10. Anemia. PLAN: 1. Resumption of carvedilol, which was not ordered on admission. 2. Resumption of DENISE inhibitor or angiotensin receptor blockers with caution and close monitoring of renal function; was not ordered on admission. 3. Continuation of IV Lasix with close monitoring of renal function and may consider the addition of Aldactone therapy. 4. Resumption of statin therapy. 5. Continuation of Ecotrin therapy and avoidance of Plavix since her coronary artery disease currently is stable. Thank you for the kind referral. ASHLI JERNIGAN M.D. [id number]
[2017-02-21 16:09] LABS: URINE APPEARANCE CLEAR; URINE BILIRUBIN NEGATIVE (NEGATIVE); URINE BLOOD NEGATIVE (NEGATIVE); URINE COLOR COLORLESS; URINE GLUCOSE (UA) NEGATIVE (NEGATIVE); URINE KETONE NEGATIVE (NEGATIVE); URINE LEUK ESTERASE NEGATIVE (NEGATIVE); URINE NITRITE NEGATIVE (NEGATIVE); URINE PROTEIN NEGATIVE (NEGATIVE); URINE UROBILINOGEN NEGATIVE E.U./dl (0.2-1.0)
[2017-02-21] MEDS: CARVEDILOL 6.25 MG TABLET (FP) PO SCH (21:12)
[2017-02-21] MEDS: ATORVASTATIN CA 10 MG TABLET (FP) PO SCH (21:12)
[2017-02-21] MEDS ORDERED: INSULIN DETEMIR 100 UNITS/ML MDV SQ SCH (22:00)
[2017-02-22] MEDS: FUROSEMIDE 40 MG/4 ML INJECTABLE VIAL IVPB SCH (05:56)
[2017-02-22] MEDS: INSULIN SLIDING SCALE (NOVOLOG) 1 VIAL SQ SCH ×4 (06:40→21:32)
[2017-02-22 08:23] LABS: CALCIUM 9.1 mg/dL (8.5-10.1); COCKROFT - GAULT 40.4005; CREATININE 2.1 mg/dL (0.55-1.02)
--- NOTE | 2017-02-22 08:33 | PN ---
Progress Note (short form) - Note Progress Note: Subjective Patient seen and examined. Patient feels and looks better. No complaints. Denies chest pain or SOB. Objective Last Vital Signs Temp Pulse Resp BP Pulse Ox 98.0 F 79 20 132/66 96 02/22/17 06:00 02/22/17 06:00 02/22/17 06:00 02/22/17 06:00 02/21/17 09:00 CBC, BMP 02/21/17 07:20 02/22/17 07:10 Laboratory Results - last 24 hr 02/21/17 02/21/17 02/21/17 11:55 16:04 16:28 Sodium Potassium Chloride Carbon Dioxide Anion Gap BUN Creatinine POC Glucometer 196 173 Random Glucose Hemoglobin A1c % Calcium Urine Color Colorless Urine Appearance Clear Urine pH 5.0 Ur Specific Jack 1.008 Urine Protein Negative Urine Glucose (UA) Negative Urine Ketones Negative Urine Blood Negative Urine Nitrite Negative Urine Bilirubin Negative Urine Urobilinogen Negative Ur Leukocyte Esterase Negative 02/21/17 02/22/17 02/22/17 21:00 05:54 07:10 Sodium Potassium Chloride Carbon Dioxide Anion Gap BUN Creatinine POC Glucometer 198 162 Random Glucose Hemoglobin A1c % 10.3 H D Calcium Urine Color Urine Appearance Urine pH Ur Specific Jack Urine Protein Urine Glucose (UA) Urine Ketones Urine Blood Urine Nitrite Urine Bilirubin Urine Urobilinogen Ur Leukocyte Esterase 02/22/17 07:10 Sodium 144 Potassium 4.3 Chloride 106 Carbon Dioxide 30 Anion Gap 8 BUN 43 H D Creatinine 2.1 H POC Glucometer Random Glucose 137 H Hemoglobin A1c % Calcium 9.1 Urine Color Urine Appearance Urine pH Ur Specific Jack Urine Protein Urine Glucose (UA) Urine Ketones Urine Blood Urine Nitrite Urine Bilirubin Urine Urobilinogen Ur Leukocyte Esterase Physical Exam Constitutional: Yes: No Distress, Calm Eyes: Yes: Conjunctiva Clear Neck: Yes: Supple, Trachea Midline Cardiovascular: Yes: Regular Rate and Rhythm Respiratory: Yes: Diminished Gastrointestinal: Yes: Soft, Abdomen, Obese Edema: +2 Neurological: Yes: Alert Psychiatric: Yes: Alert Assessment and Plan Clinically looks better. BG better. Compliance discussed again. Creatinine elevated to 2.1 today. Will decrease Lasix to 40 mg once a day. Follow up electrolytes tomorrow. If stable will consider d/c home tomorrow. Documentation prepared by Roberta Pavon, acting as a biomedical engineering technician for Iesha Combs MD. <Roberta Pavon - Last Filed: 02/22/17 10:18> Problem List - Problems (1) CHF (congestive heart failure) Code(s): I50.9 - HEART FAILURE, UNSPECIFIED (2) Hypoglycemia Code(s): E16.2 - HYPOGLYCEMIA, UNSPECIFIED (3) IDDM (insulin dependent diabetes mellitus) Code(s): E11.9 - TYPE 2 DIABETES MELLITUS WITHOUT COMPLICATIONS Z79.4 - SENIOR CARE (CURRENT) USE OF INSULIN (4) SOB (shortness of breath) on exertion Code(s): R06.02 - SHORTNESS OF BREATH (5) AICD (automatic cardioverter/defibrillator) present Code(s): Z95.810 - PRESENCE OF AUTOMATIC (IMPLANTABLE) CARDIAC DEFIBRILLATOR (6) Anemia Code(s): D64.9 - ANEMIA, UNSPECIFIED Qualifiers: Anemia type: iron deficiency (7) CAD (coronary artery disease) Code(s): I25.10 - ATHSCL HEART DISEASE OF [place] CORONARY ARTERY W/O ANG PCTRS Qualifiers: Coronary Disease-Associated Artery/Lesion type: [place] artery [place] vs. transplanted heart: [place] heart Associated angina: without angina Qualified Code(s): I25.10 - Atherosclerotic heart disease of [place] coronary artery without angina pectoris (8) HTN (hypertension) Code(s): I10 - ESSENTIAL (PRIMARY) HYPERTENSION Qualifiers: Hypertension type: essential hypertension Qualified Code(s): I10 - Essential (primary) hypertension (9) History of percutaneous coronary intervention Code(s): Z98.89 - OTHER SPECIFIED POSTPROCEDURAL STATES * DO NOT USE * <Iesha Combs - Last Filed: 02/22/17 08:32>
[2017-02-22] MEDS ORDERED: PT OWN MED DRAWER 7, Y5N ONE (09:21)
[2017-02-22] MEDS: CARVEDILOL 6.25 MG TABLET (FP) PO SCH ×2 (09:23→21:05)
[2017-02-22] MEDS: VALSARTAN 40 MG TABLET (FP) PO SCH (09:23)
[2017-02-22] MEDS: FERROUS SO4 325 MG TABLET (FP) PO SCH ×3 (09:23→17:07)
[2017-02-22] MEDS: ALLOPURINOL 100 MG TABLET (FP) PO SCH (09:23)
[2017-02-22] MEDS: PANTOPRAZOLE 20 MG TABLET (FP) PO SCH (09:23)
[2017-02-22] MEDS: PYRIDOXINE HCL (B-6) 50 MG TABLET (FP) PO SCH (09:23)
[2017-02-22] MEDS: SPIRONOLACTONE 25 MG TABLET (FP) PO SCH (09:23)
[2017-02-22] MEDS: GABAPENTIN 300 MG CAPSULE (FP) PO SCH (09:24)
[2017-02-22] MEDS: HEPARIN NA (PORCINE) 5,000 UNITS/ML 1ML VIAL SQ SCH ×2 (09:24→21:05)
[2017-02-22] MEDS: ASPIRIN 81 MG CHEWABLE TABLETS PO SCH (09:24)
--- NOTE | 2017-02-22 10:24 | PN ---
Progress Note, Physician History of Present Illness: Dysnea improving, LE edema persists. - Current Medication List Current Medications: Active Medications Acetaminophen (Tylenol -) 650 mg PO Q4H PRN PRN Reason: FEVER OR PAIN Allopurinol (Zyloprim -) 100 mg PO DAILY [facility] Last Admin: 02/22/17 09:23 Dose: 100 mg Aspirin (Asa -) 81 mg PO DAILY [facility] Last Admin: 02/22/17 09:24 Dose: 81 mg Atorvastatin Calcium (Lipitor -) 10 mg PO HS [facility] Last Admin: 02/21/17 21:12 Dose: 10 mg Carvedilol (Coreg -) 6.25 mg PO BID [facility] Last Admin: 02/22/17 09:23 Dose: 6.25 mg Docusate Sodium (Colace -) 100 mg PO BID PRN PRN Reason: CONSTIPATION Ferrous Sulfate (Feosol -) 325 mg PO TIDCM [facility] Last Admin: 02/22/17 09:23 Dose: 325 mg Furosemide (Lasix Injection -) 40 mg IVPB DAILY [facility] Gabapentin (Neurontin -) 300 mg PO DAILY [facility] Last Admin: 02/22/17 09:24 Dose: 300 mg Heparin Sodium (Porcine) (Heparin -) 5,000 unit SQ BID [facility] Last Admin: 02/22/17 09:24 Dose: 5,000 unit Insulin Aspart (Novolog Vial Sliding Scale -) 1 vial SQ TIDAC [facility] PRN Reason: Protocol Last Admin: 02/22/17 06:40 Dose: 4 units Insulin Aspart (Novolog Vial Sliding Scale -) 1 vial SQ HS [facility] PRN Reason: Protocol Last Admin: 02/21/17 21:04 Dose: Not Given Insulin Detemir (Levemir Vial) 8 units SQ HS [facility] Last Admin: 02/21/17 21:12 Dose: 8 units Pantoprazole Sodium (Protonix -) 20 mg PO DAILY [facility] Last Admin: 02/22/17 09:23 Dose: 20 mg Pyridoxine HCl (Vitamin B6 -) 50 mg PO DAILY [facility] Last Admin: 02/22/17 09:23 Dose: 50 mg Spironolactone (Aldactone -) 25 mg PO DAILY [facility] Last Admin: 02/22/17 09:23 Dose: 25 mg Tramadol HCl (Ultram -) 50 mg PO Q6H PRN PRN Reason: PAIN Last Admin: 02/21/17 05:44 Dose: 50 mg Valsartan (Diovan -) 40 mg PO DAILY [facility] Last Admin: 02/22/17 09:23 Dose: 40 mg - Objective Vital Signs: Vital Signs Temperature 98.0 F 02/22/17 06:00 Pulse Rate 79 02/22/17 06:00 Respiratory Rate 20 02/22/17 06:00 Blood Pressure 132/66 02/22/17 06:00 O2 Sat by Pulse Oximetry (%) 96 02/21/17 09:00 Constitutional: Yes: No Distress, Calm Neck: Yes: Supple Cardiovascular: Yes: Regular Rate and Rhythm Respiratory: Yes: Regular, Diminished Gastrointestinal: Yes: Normal Bowel Sounds, Soft, Abdomen, Obese Edema: Yes Edema: LLE: 2+, RLE: 2+ Labs: CBC, BMP 02/21/17 07:20 02/22/17 07:10 Problem List - Problems (1) CHF (congestive heart failure) Code(s): I50.9 - HEART FAILURE, UNSPECIFIED Qualifiers: Congestive heart failure type: combined Congestive heart failure chronicity: acute on chronic Qualified Code(s): I50.43 - Acute on chronic combined systolic (congestive) and diastolic (congestive) heart failure (2) IDDM (insulin dependent diabetes mellitus) Code(s): E11.9 - TYPE 2 DIABETES MELLITUS WITHOUT COMPLICATIONS Z79.4 - VARITYPE OPERATOR (CURRENT) USE OF INSULIN (3) SOB (shortness of breath) on exertion Code(s): R06.02 - SHORTNESS OF BREATH (4) AICD (automatic cardioverter/defibrillator) present Code(s): Z95.810 - PRESENCE OF AUTOMATIC (IMPLANTABLE) CARDIAC DEFIBRILLATOR (5) Acute on chronic renal insufficiency Code(s): N28.9 - DISORDER OF KIDNEY AND URETER, UNSPECIFIED N18.9 - CHRONIC KIDNEY DISEASE, UNSPECIFIED (6) CAD (coronary artery disease) Code(s): I25.10 - ATHSCL HEART DISEASE OF [place] CORONARY ARTERY W/O ANG PCTRS Qualifiers: Coronary Disease-Associated Artery/Lesion type: [place] artery [place] vs. transplanted heart: [place] heart Associated angina: without angina Qualified Code(s): I25.10 - Atherosclerotic heart disease of [place] coronary artery without angina pectoris (7) HTN (hypertension) Code(s): I10 - ESSENTIAL (PRIMARY) HYPERTENSION Qualifiers: Hypertension type: essential hypertension Qualified Code(s): I10 - Essential (primary) hypertension (8) History of percutaneous coronary intervention Code(s): Z98.89 - OTHER SPECIFIED POSTPROCEDURAL STATES * DO NOT USE * (9) Hypercholesterolemia Code(s): E78.0 - PURE HYPERCHOLESTEROLEMIA * DO NOT USE * (10) Renal insufficiency Code(s): N28.9 - DISORDER OF KIDNEY AND URETER, UNSPECIFIED (11) Uncontrolled diabetes mellitus Code(s): E11.65 - TYPE 2 DIABETES MELLITUS WITH HYPERGLYCEMIA Qualifiers: Diabetes mellitus type: type 2 Diabetes mellitus complication status: with hyperglycemia Diabetes mellitus terminal operations manager insulin use: with terminal operations manager use Qualified Code(s): E11.65 - Type 2 diabetes mellitus with hyperglycemia; Z79.4 - prison (current) use of insulin Assessment/Plan 1. Clinical presentation is consistent with class I-II [place] Heart Association classification left ventricular failure related to acute on chronic exacerbation of diastolic/systolic left ventricular dysfunction improving 2. CAD post PCI/stent, angina pectoris 3. Post RESOLUTION AGENT-D 4. HTN 5. DM, not well controlled 6. Hypercholesterolemia 7. Pulmonary hypertension related to the above-noted diastolic left ventricular dysfunction 8. Chronic kidney disease. 9. Anemia 10. Suspect sleep-disordered breathing PLAN: 1. Continue Carvedilol 6.25 bid 2. Continue Diovan 40 qd with uptitration as tolerated 3. Continue IV Lasix 40 IV qd and Aldactone 25 qd with close monitoring of diuretic response, renal function and electrolytes 4. Continue Atorvastatin 10 qhs 5. Continuation of Ecotrin 81 qd 6. Compression therapy with DENISE wraps 7. DVT and GI prophylaxis, sleep study as outpatient
[2017-02-22] MEDS ORDERED: INSULIN (NOVOLOG) ASPART 100 UNITS/ML 10ML VIAL ONE ×2 (11:47→17:00)
--- NOTE | 2017-02-22 12:22 | PN ---
Progress Note (short form) - Note Progress Note: Improving blood sugar No new complaints No hypos Vital Signs Period Temp Pulse Resp BP Sys/Etienne Pulse Ox Last 24 Hr 97.6 F-98.0 F 77-81 18-20 122-147/61-74 100 PE: AOx3 Neck: Supple, No JVD HEENT: PERRL, EOMI Lungs: CTa Abd: Benign Ext: +Edema Neuro: No focal deficti CMP Sodium 144 mmol/L (136-145) 02/22/17 07:10 Potassium 4.3 mmol/L (3.5-5.1) 02/22/17 07:10 Chloride 106 mmol/L (98-107) 02/22/17 07:10 Carbon Dioxide 30 mmol/L (21-32) 02/22/17 07:10 Anion Gap 8 (8-16) 02/22/17 07:10 BUN 43 mg/dL (7-18) H D 02/22/17 07:10 Creatinine 2.1 mg/dL (0.55-1.02) H 02/22/17 07:10 Creat Clearance w eGFR 27.66 (>60) 02/21/17 07:20 POC Glucometer 191 UNITS (()) 02/22/17 11:34 Random Glucose 137 mg/dL (74-106) H 02/22/17 07:10 Hemoglobin A1c % 10.3 % (4.8-6.0) H D 02/22/17 07:10 Calcium 9.1 mg/dL (8.5-10.1) 02/22/17 07:10 Magnesium 1.6 mg/dL (1.8-2.4) L 02/21/17 07:20 Total Bilirubin 0.5 mg/dL (0.2-1.0) D 02/21/17 07:20 AST 15 U/L (15-37) D 02/21/17 07:20 ALT 16 U/L (12-78) 02/21/17 07:20 Alkaline Phosphatase 161 U/L (45-117) H 02/21/17 07:20 B-Natriuretic Peptide 1177.40 pg/ml (5-125) H 02/19/17 23:24 Total Protein 7.1 g/dl (6.4-8.2) 02/21/17 07:20 Albumin 3.1 g/dl (3.4-5.0) L 02/21/17 07:20 Current Medications Generic Name Dose Route Start Last Admin Trade Name Randi PRN Reason Stop Dose Admin Acetaminophen 650 mg 02/20/17 10:31 Tylenol - PO Q4H PRN FEVER OR PAIN Allopurinol 100 mg 02/21/17 10:00 02/22/17 09:23 Zyloprim - PO 100 mg DAILY [facility] Administration Aspirin 81 mg 02/21/17 10:00 02/22/17 09:24 Asa - PO 81 mg DAILY [facility] Administration Atorvastatin Calcium 10 mg 02/21/17 22:00 02/21/17 21:12 Lipitor - PO 10 mg HS [facility] Administration Carvedilol 6.25 mg 02/21/17 22:00 02/22/17 09:23 Coreg - PO 6.25 mg BID [facility] Administration Docusate Sodium 100 mg 02/20/17 10:31 Colace - PO BID PRN CONSTIPATION Ferrous Sulfate 325 mg 02/20/17 17:30 02/22/17 11:57 Feosol - PO 325 mg TIDCM [facility] Administration Furosemide 40 mg 02/23/17 10:00 Lasix Injection - IVPB DAILY [facility] Gabapentin 300 mg 02/21/17 10:00 02/22/17 09:24 Neurontin - PO 300 mg DAILY [facility] Administration Heparin Sodium (Porcine) 5,000 unit 02/20/17 22:00 02/22/17 09:24 Heparin - SQ 5,000 unit BID [facility] Administration Insulin Aspart 1 vial 02/20/17 13:22 02/22/17 11:56 Novolog Vial Sliding Scale - SQ 4 units TIDAC [facility] Administration Protocol Insulin Aspart 1 vial 02/20/17 22:00 02/21/17 21:04 Novolog Vial Sliding Scale - SQ Not Given HS [facility] Protocol Insulin Detemir 8 units 02/21/17 22:00 02/21/17 21:12 Levemir Vial SQ 8 units HS [facility] Administration Pantoprazole Sodium 20 mg 02/21/17 10:00 02/22/17 09:23 Protonix - PO 20 mg DAILY [facility] Administration Pyridoxine HCl 50 mg 02/21/17 10:00 02/22/17 09:23 Vitamin B6 - PO 50 mg DAILY [facility] Administration Spironolactone 25 mg 02/21/17 14:45 02/22/17 09:23 Aldactone - PO 25 mg DAILY [facility] Administration Tramadol HCl 50 mg 02/20/17 10:23 02/21/17 05:44 Ultram - PO 50 mg Q6H PRN Administration PAIN Valsartan 40 mg 02/21/17 14:45 02/22/17 09:23 Diovan - PO 40 mg DAILY [facility] Administration AP; DM Uncontrolled, A1C 10.3 Hypoglycemia: resolved Continue current Novolog coverage INcrease Levermir 12 units daily at HS Discussed need for compliance with diet and medication. Discussed need for portion cotrol, no premeal insulin if she is not going to eat and half dose if the apetite is poor and she is going to eat less than usual. Pt verbalizes understanding BGM QACHS Will F/u CHF CAD HTN CKD
[2017-02-22] MEDS: ATORVASTATIN CA 10 MG TABLET (FP) PO SCH (21:04)
[2017-02-22] MEDS ORDERED: INSULIN DETEMIR 100 UNITS/ML MDV SQ SCH (22:00)
[2017-02-23] MEDS: INSULIN SLIDING SCALE (NOVOLOG) 1 VIAL SQ SCH ×4 (06:35→21:39)
[2017-02-23] MEDS: FERROUS SO4 325 MG TABLET (FP) PO SCH ×3 (08:16→17:37)
--- NOTE | 2017-02-23 08:50 | PN ---
Progress Note (short form) - Note Progress Note: patient seen and examined Feels better Denies chest pain Dysnea better Vital Signs Temp 98.1 F 02/23/17 06:00 Pulse 75 02/23/17 06:00 Resp 20 02/23/17 06:00 BP 113/55 02/23/17 06:00 Pulse Ox 95 02/22/17 21:00 Intake & Output 02/22/17 02/22/17 02/23/17 11:59 23:59 11:59 Intake Total 0 600 200 Balance 0 600 200 Intake: IVPB 0 Oral 600 200 Other: Voiding Method Toilet Toilet Toilet # Unmeasured Voids Void 1 1 Bowel Movement No: 02/22/2017 No # Bowel Movements 0 Active Medications Acetaminophen (Tylenol -) 650 mg PO Q4H PRN PRN Reason: FEVER OR PAIN Allopurinol (Zyloprim -) 100 mg PO DAILY [facility] Last Admin: 02/22/17 09:23 Dose: 100 mg Aspirin (Asa -) 81 mg PO DAILY [facility] Last Admin: 02/22/17 09:24 Dose: 81 mg Atorvastatin Calcium (Lipitor -) 10 mg PO HS [facility] Last Admin: 02/22/17 21:04 Dose: 10 mg Carvedilol (Coreg -) 6.25 mg PO BID [facility] Last Admin: 02/22/17 21:05 Dose: 6.25 mg Docusate Sodium (Colace -) 100 mg PO BID PRN PRN Reason: CONSTIPATION Ferrous Sulfate (Feosol -) 325 mg PO TIDCM [facility] Last Admin: 02/23/17 08:16 Dose: 325 mg Furosemide (Lasix Injection -) 40 mg IVPB DAILY [facility] Gabapentin (Neurontin -) 300 mg PO DAILY [facility] Last Admin: 02/22/17 09:24 Dose: 300 mg Heparin Sodium (Porcine) (Heparin -) 5,000 unit SQ BID [facility] Last Admin: 02/22/17 21:05 Dose: 5,000 unit Insulin Aspart (Novolog Vial Sliding Scale -) 1 vial SQ TIDAC [facility] PRN Reason: Protocol Last Admin: 02/23/17 06:35 Dose: Not Given Insulin Aspart (Novolog Vial Sliding Scale -) 1 vial SQ HS [facility] PRN Reason: Protocol Last Admin: 02/22/17 21:32 Dose: Not Given Insulin Detemir (Levemir Vial) 12 units SQ HS [facility] Last Admin: 02/22/17 21:05 Dose: 12 units Pantoprazole Sodium (Protonix -) 20 mg PO DAILY [facility] Last Admin: 02/22/17 09:23 Dose: 20 mg Pyridoxine HCl (Vitamin B6 -) 50 mg PO DAILY [facility] Last Admin: 02/22/17 09:23 Dose: 50 mg Spironolactone (Aldactone -) 25 mg PO DAILY [facility] Last Admin: 02/22/17 09:23 Dose: 25 mg Tramadol HCl (Ultram -) 50 mg PO Q6H PRN PRN Reason: PAIN Last Admin: 02/21/17 05:44 Dose: 50 mg Valsartan (Diovan -) 40 mg PO DAILY [facility] Last Admin: 02/22/17 09:23 Dose: 40 mg CBC, BMP 02/21/17 07:20 Bmp-- Pending Physical Exam Constitutional: Yes: No Distress, Calm Eyes: Yes: Conjunctiva Clear Neck: Yes: Supple, Trachea Midline Cardiovascular: Yes: Regular Rate and Rhythm Respiratory: Yes: Diminished Gastrointestinal: Yes: Soft, Abdomen, Obese Edema: +2 Neurological: Yes: Alert Psychiatric: Yes: Alert Assessment and Plan Clinically looks better. still has significant edema. Continue IV Lasix for the same dose Compliance discussed again. Follow up electrolytes--pending Monitor today If stable will consider d/c home tomorrow. Problem List - Problems (1) CHF (congestive heart failure) Code(s): I50.9 - HEART FAILURE, UNSPECIFIED Qualifiers: Congestive heart failure type: combined Congestive heart failure chronicity: acute on chronic Qualified Code(s): I50.43 - Acute on chronic combined systolic (congestive) and diastolic (congestive) heart failure (2) Hypoglycemia Code(s): E16.2 - HYPOGLYCEMIA, UNSPECIFIED (3) IDDM (insulin dependent diabetes mellitus) Code(s): E11.9 - TYPE 2 DIABETES MELLITUS WITHOUT COMPLICATIONS Z79.4 - LONGTERM (CURRENT) USE OF INSULIN (4) SOB (shortness of breath) on exertion Code(s): R06.02 - SHORTNESS OF BREATH (5) AICD (automatic cardioverter/defibrillator) present Code(s): Z95.810 - PRESENCE OF AUTOMATIC (IMPLANTABLE) CARDIAC DEFIBRILLATOR (6) Anemia Code(s): D64.9 - ANEMIA, UNSPECIFIED Qualifiers: Anemia type: iron deficiency (7) CAD (coronary artery disease) Code(s): I25.10 - ATHSCL HEART DISEASE OF [place] CORONARY ARTERY W/O ANG PCTRS Qualifiers: Coronary Disease-Associated Artery/Lesion type: [place] artery [place] vs. transplanted heart: [place] heart Associated angina: without angina Qualified Code(s): I25.10 - Atherosclerotic heart disease of [place] coronary artery without angina pectoris (8) HTN (hypertension) Code(s): I10 - ESSENTIAL (PRIMARY) HYPERTENSION Qualifiers: Hypertension type: essential hypertension Qualified Code(s): I10 - Essential (primary) hypertension (9) History of percutaneous coronary intervention Code(s): Z98.89 - OTHER SPECIFIED POSTPROCEDURAL STATES * DO NOT USE *
[2017-02-23 08:58] LABS: CALCIUM 8.6 mg/dL (8.5-10.1)
--- NOTE | 2017-02-23 08:58 | PN ---
Progress Note, Physician History of Present Illness: Dysnea and LE edema improving, legs wrapped. - Current Medication List Current Medications: Active Medications Acetaminophen (Tylenol -) 650 mg PO Q4H PRN PRN Reason: FEVER OR PAIN Allopurinol (Zyloprim -) 100 mg PO DAILY [facility] Last Admin: 02/22/17 09:23 Dose: 100 mg Aspirin (Asa -) 81 mg PO DAILY [facility] Last Admin: 02/22/17 09:24 Dose: 81 mg Atorvastatin Calcium (Lipitor -) 10 mg PO HS [facility] Last Admin: 02/22/17 21:04 Dose: 10 mg Carvedilol (Coreg -) 6.25 mg PO BID [facility] Last Admin: 02/22/17 21:05 Dose: 6.25 mg Docusate Sodium (Colace -) 100 mg PO BID PRN PRN Reason: CONSTIPATION Ferrous Sulfate (Feosol -) 325 mg PO TIDCM [facility] Last Admin: 02/23/17 08:16 Dose: 325 mg Furosemide (Lasix Injection -) 40 mg IVPB DAILY [facility] Gabapentin (Neurontin -) 300 mg PO DAILY [facility] Last Admin: 02/22/17 09:24 Dose: 300 mg Heparin Sodium (Porcine) (Heparin -) 5,000 unit SQ BID [facility] Last Admin: 02/22/17 21:05 Dose: 5,000 unit Insulin Aspart (Novolog Vial Sliding Scale -) 1 vial SQ TIDAC [facility] PRN Reason: Protocol Last Admin: 02/23/17 06:35 Dose: Not Given Insulin Aspart (Novolog Vial Sliding Scale -) 1 vial SQ HS [facility] PRN Reason: Protocol Last Admin: 02/22/17 21:32 Dose: Not Given Insulin Detemir (Levemir Vial) 12 units SQ HS [facility] Last Admin: 02/22/17 21:05 Dose: 12 units Pantoprazole Sodium (Protonix -) 20 mg PO DAILY [facility] Last Admin: 02/22/17 09:23 Dose: 20 mg Pyridoxine HCl (Vitamin B6 -) 50 mg PO DAILY [facility] Last Admin: 02/22/17 09:23 Dose: 50 mg Spironolactone (Aldactone -) 25 mg PO DAILY [facility] Last Admin: 02/22/17 09:23 Dose: 25 mg Tramadol HCl (Ultram -) 50 mg PO Q6H PRN PRN Reason: PAIN Last Admin: 02/21/17 05:44 Dose: 50 mg Valsartan (Diovan -) 40 mg PO DAILY [facility] Last Admin: 02/22/17 09:23 Dose: 40 mg - Objective Vital Signs: Vital Signs Temperature 98.1 F 02/23/17 06:00 Pulse Rate 75 02/23/17 06:00 Respiratory Rate 20 02/23/17 06:00 Blood Pressure 113/55 02/23/17 06:00 O2 Sat by Pulse Oximetry (%) 95 02/22/17 21:00 Constitutional: Yes: No Distress, Calm Neck: Yes: Supple Cardiovascular: Yes: Regular Rate and Rhythm Respiratory: Yes: Regular, Diminished Gastrointestinal: Yes: Normal Bowel Sounds, Soft, Abdomen, Obese Edema: Yes Edema: LLE: 1+, RLE: 1+ Labs: CBC, BMP 02/21/17 07:20 Problem List - Problems (1) CHF (congestive heart failure) Code(s): I50.9 - HEART FAILURE, UNSPECIFIED Qualifiers: Qualified Code(s): I50.43 - Acute on chronic combined systolic ( congestive) and diastolic (congestive) heart failure (2) IDDM (insulin dependent diabetes mellitus) Code(s): E11.9 - TYPE 2 DIABETES MELLITUS WITHOUT COMPLICATIONS Z79.4 - CARE HOME (CURRENT) USE OF INSULIN (3) SOB (shortness of breath) on exertion Code(s): R06.02 - SHORTNESS OF BREATH (4) AICD (automatic cardioverter/defibrillator) present Code(s): Z95.810 - PRESENCE OF AUTOMATIC (IMPLANTABLE) CARDIAC DEFIBRILLATOR (5) Acute on chronic renal insufficiency Code(s): N28.9 - DISORDER OF KIDNEY AND URETER, UNSPECIFIED N18.9 - CHRONIC KIDNEY DISEASE, UNSPECIFIED (6) CAD (coronary artery disease) Code(s): I25.10 - ATHSCL HEART DISEASE OF [place] CORONARY ARTERY W/O ANG PCTRS Qualifiers: Qualified Code(s): I25.10 - Atherosclerotic heart disease of [place] coronary artery without angina pectoris (7) HTN (hypertension) Code(s): I10 - ESSENTIAL (PRIMARY) HYPERTENSION Qualifiers: Qualified Code(s): I10 - Essential (primary) hypertension (8) History of percutaneous coronary intervention Code(s): Z98.89 - OTHER SPECIFIED POSTPROCEDURAL STATES * DO NOT USE * (9) Hypercholesterolemia Code(s): E78.0 - PURE HYPERCHOLESTEROLEMIA * DO NOT USE * (10) Renal insufficiency Code(s): N28.9 - DISORDER OF KIDNEY AND URETER, UNSPECIFIED (11) Uncontrolled diabetes mellitus Code(s): E11.65 - TYPE 2 DIABETES MELLITUS WITH HYPERGLYCEMIA Qualifiers: Qualified Code(s): E11.65 - Type 2 diabetes mellitus with hyperglycemia Assessment/Plan 1. Clinical presentation is consistent with class I-II [place] [employer] classification left ventricular failure related to acute on chronic exacerbation of diastolic/systolic left ventricular dysfunction improving 2. CAD post PCI/stent, angina pectoris 3. Post REGULATORY ADMINISTRATOR-D 4. HTN 5. DM, not well controlled 6. Hypercholesterolemia 7. Pulmonary hypertension related to the above-noted diastolic left ventricular dysfunction 8. Chronic kidney disease. 9. Anemia 10. Suspect sleep-disordered breathing PLAN: 1. Continue Carvedilol 6.25 bid 2. Increase Diovan 80 qd with uptitration as tolerated 3. Decrease Lasix 20 po qd and Aldactone 25 qd with close monitoring of diuretic response, renal function and electrolytes 4. Continue Atorvastatin 10 qhs 5. Continuation of Ecotrin 81 qd 6. Compression therapy with DENISE wraps 7. DVT and GI prophylaxis, sleep study as outpatient
[2017-02-23 09:00] LABS: COCKROFT - GAULT 44.6505; CREATININE 1.9 mg/dL (0.55-1.02)
--- NOTE | 2017-02-23 09:04 | PN ---
Progress Note (short form) - Note Progress Note: BGM 200s No hypos Leg edema persists Vital Signs Period Temp Pulse Resp BP Sys/Etienne Pulse Ox Last 24 Hr 97.6 F-98.1 F 70-77 18-22 113-132/55-77 95 PE: AOx3 Neck: Supple, No JVD HEENT: PERRL, EOMI Lungs: CTa Abd: Benign Ext: +Edema Neuro: No focal deficti CMP Sodium 144 mmol/L (136-145) 02/22/17 07:10 Potassium 4.3 mmol/L (3.5-5.1) 02/22/17 07:10 Chloride 106 mmol/L (98-107) 02/22/17 07:10 Carbon Dioxide 30 mmol/L (21-32) 02/22/17 07:10 Anion Gap 8 (8-16) 02/22/17 07:10 BUN 43 mg/dL (7-18) H D 02/22/17 07:10 Creatinine 2.1 mg/dL (0.55-1.02) H 02/22/17 07:10 Creat Clearance w eGFR 27.66 (>60) 02/21/17 07:20 POC Glucometer 203 UNITS (()) 02/23/17 05:35 Random Glucose 137 mg/dL (74-106) H 02/22/17 07:10 Hemoglobin A1c % 10.3 % (4.8-6.0) H D 02/22/17 07:10 Calcium 9.1 mg/dL (8.5-10.1) 02/22/17 07:10 Magnesium 1.6 mg/dL (1.8-2.4) L 02/21/17 07:20 Total Bilirubin 0.5 mg/dL (0.2-1.0) D 02/21/17 07:20 AST 15 U/L (15-37) D 02/21/17 07:20 ALT 16 U/L (12-78) 02/21/17 07:20 Alkaline Phosphatase 161 U/L (45-117) H 02/21/17 07:20 B-Natriuretic Peptide 1177.40 pg/ml (5-125) H 02/19/17 23:24 Total Protein 7.1 g/dl (6.4-8.2) 02/21/17 07:20 Albumin 3.1 g/dl (3.4-5.0) L 02/21/17 07:20 Current Medications Generic Name Dose Route Start Last Admin Trade Name Randi PRN Reason Stop Dose Admin Acetaminophen 650 mg 02/20/17 10:31 Tylenol - PO Q4H PRN FEVER OR PAIN Allopurinol 100 mg 02/21/17 10:00 02/22/17 09:23 Zyloprim - PO 100 mg DAILY [facility] Administration Aspirin 81 mg 02/21/17 10:00 02/22/17 09:24 Asa - PO 81 mg DAILY [facility] Administration Atorvastatin Calcium 10 mg 02/21/17 22:00 02/22/17 21:04 Lipitor - PO 10 mg HS [facility] Administration Carvedilol 6.25 mg 02/21/17 22:00 02/22/17 21:05 Coreg - PO 6.25 mg BID [facility] Administration Docusate Sodium 100 mg 02/20/17 10:31 Colace - PO BID PRN CONSTIPATION Ferrous Sulfate 325 mg 02/20/17 17:30 02/23/17 08:16 Feosol - PO 325 mg TIDCM [facility] Administration Furosemide 40 mg 02/23/17 10:00 Lasix Injection - IVPB DAILY [facility] Gabapentin 300 mg 02/21/17 10:00 02/22/17 09:24 Neurontin - PO 300 mg DAILY [facility] Administration Heparin Sodium (Porcine) 5,000 unit 02/20/17 22:00 02/22/17 21:05 Heparin - SQ 5,000 unit BID [facility] Administration Insulin Aspart 1 vial 02/20/17 13:22 02/23/17 06:35 Novolog Vial Sliding Scale - SQ Not Given TIDAC [facility] Protocol Insulin Aspart 1 vial 02/20/17 22:00 02/22/17 21:32 Novolog Vial Sliding Scale - SQ Not Given HS [facility] Protocol Insulin Detemir 12 units 02/22/17 22:00 02/22/17 21:05 Levemir Vial SQ 12 units HS [facility] Administration Pantoprazole Sodium 20 mg 02/21/17 10:00 02/22/17 09:23 Protonix - PO 20 mg DAILY [facility] Administration Pyridoxine HCl 50 mg 02/21/17 10:00 02/22/17 09:23 Vitamin B6 - PO 50 mg DAILY [facility] Administration Spironolactone 25 mg 02/21/17 14:45 02/22/17 09:23 Aldactone - PO 25 mg DAILY [facility] Administration Tramadol HCl 50 mg 02/20/17 10:23 02/21/17 05:44 Ultram - PO 50 mg Q6H PRN Administration PAIN Valsartan 40 mg 02/21/17 14:45 02/22/17 09:23 Diovan - PO 40 mg DAILY [facility] Administration AP; DM Uncontrolled, A1C 10.3 Hypoglycemia: resolved Continue current Novolog coverage INcrease Levermir 15 units daily at HS BGM QACHS Will F/u CHF: On IV Lasix CAD HTN CKD
[2017-02-23] MEDS ORDERED: FUROSEMIDE 40 MG/4 ML INJECTABLE VIAL IVPB SCH (10:00)
[2017-02-23] MEDS: ASPIRIN 81 MG CHEWABLE TABLETS PO SCH (10:24)
[2017-02-23] MEDS: SPIRONOLACTONE 25 MG TABLET (FP) PO SCH (10:24)
[2017-02-23] MEDS: ALLOPURINOL 100 MG TABLET (FP) PO SCH (10:25)
[2017-02-23] MEDS: PANTOPRAZOLE 20 MG TABLET (FP) PO SCH (10:25)
[2017-02-23] MEDS: CARVEDILOL 6.25 MG TABLET (FP) PO SCH ×2 (10:25→21:38)
[2017-02-23] MEDS: VALSARTAN 80 MG TABLET (UD) PO SCH (10:25)
[2017-02-23] MEDS: PYRIDOXINE HCL (B-6) 50 MG TABLET (FP) PO SCH (10:25)
[2017-02-23] MEDS: GABAPENTIN 300 MG CAPSULE (FP) PO SCH (10:26)
[2017-02-23] MEDS: HEPARIN NA (PORCINE) 5,000 UNITS/ML 1ML VIAL SQ SCH ×2 (10:26→22:12)
[2017-02-23] MEDS ORDERED: INSULIN (NOVOLOG) ASPART 100 UNITS/ML 10ML VIAL ONE (11:54)
[2017-02-23] MEDS ORDERED: PT OWN MED DRAWER 7, Y5N ONE (21:37)
[2017-02-23] MEDS: ATORVASTATIN CA 10 MG TABLET (FP) PO SCH (21:38)
[2017-02-23] MEDS ORDERED: INSULIN DETEMIR 100 UNITS/ML MDV SQ SCH (22:00)
[2017-02-24] MEDS: INSULIN SLIDING SCALE (NOVOLOG) 1 VIAL SQ SCH ×4 (06:04→16:29)
[2017-02-24 08:06] VITALS: BP 127/66
[2017-02-24] MEDS: FERROUS SO4 325 MG TABLET (FP) PO SCH ×2 (08:23→12:02)
--- NOTE | 2017-02-24 08:34 | PN ---
Progress Note (short form) - Note Progress Note: BGM improving No hypos Vital Signs Period Temp Pulse Resp BP Sys/Etienne Pulse Ox Last 24 Hr 97.9 F-98.3 F 72-78 18-22 127-136/66-77 95-95 PE: AOx3 Neck: Supple, No JVD HEENT: PERRL, EOMI Lungs: CTa Abd: Benign Ext: +Edema Neuro: No focal deficti CMP Sodium 143 mmol/L (136-145) 02/23/17 07:45 Potassium 4.5 mmol/L (3.5-5.1) 02/23/17 07:45 Chloride 108 mmol/L (98-107) H 02/23/17 07:45 Carbon Dioxide 28 mmol/L (21-32) 02/23/17 07:45 Anion Gap 7 (8-16) L 02/23/17 07:45 BUN 42 mg/dL (7-18) H 02/23/17 07:45 Creatinine 1.9 mg/dL (0.55-1.02) H 02/23/17 07:45 Creat Clearance w eGFR 27.66 (>60) 02/21/17 07:20 POC Glucometer 214 UNITS (()) 02/24/17 05:23 Random Glucose 192 mg/dL (74-106) H D 02/23/17 07:45 Hemoglobin A1c % 10.3 % (4.8-6.0) H D 02/22/17 07:10 Calcium 8.6 mg/dL (8.5-10.1) 02/23/17 07:45 Magnesium 1.6 mg/dL (1.8-2.4) L 02/21/17 07:20 Total Bilirubin 0.5 mg/dL (0.2-1.0) D 02/21/17 07:20 AST 15 U/L (15-37) D 02/21/17 07:20 ALT 16 U/L (12-78) 02/21/17 07:20 Alkaline Phosphatase 161 U/L (45-117) H 02/21/17 07:20 B-Natriuretic Peptide 1177.40 pg/ml (5-125) H 02/19/17 23:24 Total Protein 7.1 g/dl (6.4-8.2) 04/16/17 07:20 Albumin 3.1 g/dl (3.4-5.0) L 02/21/17 07:20 Current Medications Generic Name Dose Route Start Last Admin Trade Name Randi PRN Reason Stop Dose Admin Acetaminophen 650 mg 02/20/17 10:31 Tylenol - PO Q4H PRN FEVER OR PAIN Allopurinol 100 mg 02/21/17 10:00 02/23/17 10:25 Zyloprim - PO 100 mg DAILY [facility] Administration Aspirin 81 mg 02/21/17 10:00 02/23/17 10:24 Asa - PO 81 mg DAILY [facility] Administration Atorvastatin Calcium 10 mg 02/21/17 22:00 02/23/17 21:38 Lipitor - PO 10 mg HS [facility] Administration Carvedilol 6.25 mg 02/21/17 22:00 02/23/17 21:38 Coreg - PO 6.25 mg BID [facility] Administration Docusate Sodium 100 mg 02/20/17 10:31 Colace - PO BID PRN CONSTIPATION Ferrous Sulfate 325 mg 02/20/17 17:30 02/24/17 08:23 Feosol - PO 325 mg TIDCM [facility] Administration Furosemide 20 mg 02/24/17 10:00 Lasix - PO DAILY [facility] Gabapentin 300 mg 02/21/17 10:00 02/23/17 10:26 Neurontin - PO 300 mg DAILY [facility] Administration Heparin Sodium (Porcine) 5,000 unit 02/20/17 22:00 02/23/17 22:12 Heparin - SQ 5,000 unit BID [facility] Administration Insulin Aspart 1 vial 02/20/17 13:22 02/24/17 06:36 Novolog Vial Sliding Scale - SQ 6 units TIDAC [facility] Administration Protocol Insulin Aspart 1 vial 02/20/17 22:00 02/23/17 21:39 Novolog Vial Sliding Scale - SQ Not Given HS [facility] Protocol Insulin Detemir 15 units 02/23/17 22:00 02/23/17 21:39 Levemir Vial SQ 15 units HS [facility] Administration Pantoprazole Sodium 20 mg 02/21/17 10:00 02/23/17 10:25 Protonix - PO 20 mg DAILY [facility] Administration Pyridoxine HCl 50 mg 02/21/17 10:00 02/23/17 10:25 Vitamin B6 - PO 50 mg DAILY [facility] Administration Spironolactone 25 mg 02/21/17 14:45 02/23/17 10:24 Aldactone - PO 25 mg DAILY [facility] Administration Valsartan 80 mg 02/23/17 09:04 02/23/17 10:25 Diovan - PO 80 mg DAILY [facility] Administration AP; DM Uncontrolled, A1C 10.3 Hypoglycemia: resolved Continue current Novolog coverage Levermir 15 units daily at HS BGM QACHS Will F/u CHF: On IV Lasix CAD HTN CKD
[2017-02-24] MEDS ORDERED: FUROSEMIDE 20 MG TABLET (FP) PO SCH (10:00)
[2017-02-24] MEDS: PYRIDOXINE HCL (B-6) 50 MG TABLET (FP) PO SCH (10:10)
[2017-02-24] MEDS: ASPIRIN 81 MG CHEWABLE TABLETS PO SCH (10:10)
[2017-02-24] MEDS: VALSARTAN 80 MG TABLET (UD) PO SCH (10:10)
[2017-02-24] MEDS: PANTOPRAZOLE 20 MG TABLET (FP) PO SCH (10:10)
[2017-02-24] MEDS: GABAPENTIN 300 MG CAPSULE (FP) PO SCH (10:10)
[2017-02-24] MEDS: ALLOPURINOL 100 MG TABLET (FP) PO SCH (10:10)
[2017-02-24] MEDS: SPIRONOLACTONE 25 MG TABLET (FP) PO SCH (10:10)
[2017-02-24] MEDS: CARVEDILOL 6.25 MG TABLET (FP) PO SCH (10:10)
[2017-02-24] MEDS: HEPARIN NA (PORCINE) 5,000 UNITS/ML 1ML VIAL SQ SCH (10:13)
--- NOTE | 2017-02-24 11:35 | DS ---
Physical Examination Vital Signs: Vital Signs Temperature 97.9 F 02/24/17 08:00 Pulse Rate 78 02/24/17 08:00 Respiratory Rate 20 02/24/17 08:00 Blood Pressure 127/66 02/24/17 08:00 O2 Sat by Pulse Oximetry (%) 96 02/24/17 09:00 Constitutional: Yes: No Distress, Calm Cardiovascular: Yes: Regular Rate and Rhythm Respiratory: Yes: CTA Bilaterally Gastrointestinal: Yes: Normal Bowel Sounds, Soft, Abdomen, Obese. No: Tenderness Edema: Yes (decreased) Labs: CBC, BMP 02/21/17 07:20 02/23/17 07:45 Discharge Summary Reason For Visit: HYPOGLYCEMIA/ CHF Current Active Problems CHF (congestive heart failure) (Acute) Fever (Acute) Hypoglycemia (Acute) IDDM (insulin dependent diabetes mellitus) (Acute) SOB (shortness of breath) on exertion (Acute) Hospital Course: - Admission Chief Complaint: low blood sugar History of Present Illness: The patient is a 71 year old female with past medical history of IDDM, CAD, hypertension, and kidney disease who presents to the ED with complaints of low blood sugar and malaise. The patient states that her neighbors noted she was lethargic all day. When the patient took her blood sugar, it was noted to be 45. When EMS arrived, the patient was given dextrose in which her glucose went up to only 46. Upon presentation to the ED, the patients glucose was at 70. The patient reports that she hasnt been feeling like herself since yesterday and reports a loss of appetite, but still taking her insulin as directed. The patient denies any recent illness, fever, chills, nausea, vomiting, diarrhea , cough, shortness of breath, chest pain, blurred vision, LOC, or numbness/ tingling. pt also has + 3 edema of legs Pt being admitted One of many admissions for pt as she is unable to manage herself/ compliance with meds-- but refuses to go to jail Pt seen by me in ER Better denies cp. breathing non laboured Pt received 40 mg of lasix in ER HOSPITALIZATION HISTORY Pt admitted for uncontrolled DM , low sugars and increased leg swelling, CHF She was seen by Drafter Apprentice and hospital monitor -- on IV Lasix, Levemir adjusted Pt better Swelling is better Compliance stressed Pt known to be non compliant with meds Now on PO lasix and Aldactone Renal function stable Will need to follow up in office in 2 weeks and needs labs to be checked stable for dc home Condition: Improved - Instructions Disposition: HOME - Home Medications Comprehensive Discharge Medication List: Ambulatory Orders Allopurinol [Zyloprim -] 100 mg PO DAILY 02/24/16 Aspirin [ASA -] 81 mg PO DAILY 02/24/16 Ferrous Sulfate 324 mg PO TID 02/24/16 Gabapentin 300 mg PO DAILY 02/24/16 Omeprazole 20 mg PO DAILY 10/02/16 Pyridoxine HCl (B-6) [Vitamin B6 -] 50 mg PO DAILY 10/02/16 Insulin (Levemir) [Levemir Vial] 20 units SQ BID ml 12/18/16 Insulin Sliding Scale [Novolog Vial Sliding Scale -] 1 vial SQ TIDAC units 08/24 Tramadol HCl [Ultram -] 50 mg PO Q6H PRN #30 tablet MDD 4 12/18/16
[2017-02-24 12:28] LABS: CALCIUM 8.9 mg/dL (8.5-10.1); COCKROFT - GAULT 45.2285; CREATININE 1.9 mg/dL (0.55-1.02)
[2017-02-24 13:50] VITALS: PULSE 76; TEMP 97.8
== END 2017-02-24 16:31 | disposition home health service (06) | DRG 291 ==
LOC: JER 22:09 → JERBED 02-20 06:58 → J6S 02-20 16:10
PROVIDERS: ADMIT Internal Medicine; ATTEND Internal Medicine
DX: I13.0 Hypertensive heart and chronic kidney disease with heart failure and stage 1 through stage 4 chronic kidney disease, or unspecified chronic kidney disease (principal); I50.43 Acute on chronic combined systolic (congestive) and diastolic (congestive) heart failure; E11.649 Type 2 diabetes mellitus with hypoglycemia without coma; E11.65 Type 2 diabetes mellitus with hyperglycemia; E11.22 Type 2 diabetes mellitus with diabetic chronic kidney disease; N18.9 Chronic kidney disease, unspecified; I25.10 Atherosclerotic heart disease of native coronary artery without angina pectoris; D64.9 Anemia, unspecified; Z95.810 Presence of automatic (implantable) cardiac defibrillator; Z79.4 Long term (current) use of insulin; Z91.11 Patient's noncompliance with dietary regimen; Z91.14 Patient's other noncompliance with medication regimen; I27.2 Other secondary pulmonary hypertension; E78.00 Pure hypercholesterolemia, unspecified; Z98.61 Coronary angioplasty status
CPT/HCPCS: 36415; 70450-TC; 71010-TC; 80048; 80053; 81003; 83036; 83735; 83880; 85025; 85651; 93970-TC; 97116-GP; 97162-PG; 99284-25; J1644

== ENCOUNTER 2018-03-10 11:12 | Inpatient (IN) | payer OTHER ==
[2018-03-10 13:25] LABS: BASO % 0.9 % (0-2.0); EOS % 2.7 % (0-4.5); HEMOGLOBIN 9.5 GM/dL (10.7-15.3); MCH 21.8 pg (25.7-33.7); MCHC 31.5 g/dl (32.0-36.0); MEAN CELL VOLUME 69.2 fl (80-96); MEAN PLT VOLUME 10.3 fl (7.5-11.1); MONO % 8.7 % (3.8-10.2); NEUT % 70.7 % (42.8-82.8); PLATELET COUNT 195 K/MM3 (134-434); RBC 4.34 M/mm3 (3.60-5.2); RDW 16.2 % (11.6-15.6); WHITE BLOOD COUNT 8.4 K/mm3 (4.0-10.0)
[2018-03-10 13:37] LABS: INR 1.08 (0.82-1.09); PROTHROMBIN TIME (PATIENT) 12.2 SEC (9.7-13.0)
[2018-03-10 13:40] LABS: ACTIVATED PTT 31.3 SECONDS (26.9-34.4)
[2018-03-10 13:56] LABS: ALBUMIN 3.3 g/dl (3.4-5.0); ANION GAP 8 (8-16); BLOOD UREA NITROGEN 37 mg/dL (7-18); CALCIUM 9.2 mg/dL (8.5-10.1); CHLORIDE 109 mmol/L (98-107); CO2 30 mmol/L (21-32); CREATININE 2.1 mg/dL (0.55-1.02); GLUCOSE,RANDOM 111 mg/dL (74-106); POTASSIUM 4.1 mmol/L (3.5-5.1); SGOT/AST 25 U/L (15-37); SGPT/ALT 17 U/L (12-78); SODIUM 147 mmol/L (136-145)
--- NOTE | 2018-03-10 13:56 | PDOC ---
History of Present Illness - General History Source: Patient Exam Limitations: No Limitations <Va Gomez - Last Filed: 03/10/18 13:53> - General History Source: Patient Exam Limitations: Clinical Condition, Other - History of Present Illness Initial Comments: 03/10/18 14:00 The patient is a 72 year old female, with a significant past medical history of obesity, anemia, CHF, hypertension, hyperlipidemia, IDDM, CAD(s/p stents), hypertension, kidney disease, and anxiety who presents to the emergency department s/p unwitnessed fall earlier today. Per aide, initially present at bedside, the patient fell out of her chair secondary to dizziness earlier today. Unclear if patient had any head trauma, LOC, changes in vision, numbness , tingling, neck or back pain. Patient initially reported knee pain, but denies any hip pain. Patient is a poor historian, drowsy but arousable. Allergies: NKDA Past Surgical History: Cardiac Stents Social History: Non smoker. No ETOH or recreational drug use PCP: Dr. Combs <Jose Maria Montgomery - Last Filed: 03/10/18 17:46> <Niles Andino - Last Filed: 03/10/18 19:05> - General Chief Complaint: Injury Stated Complaint: FALL Time Seen by Provider: 03/10/18 12:38 Past History - Past Medical History Anemia: Yes (ISH) Asthma: No Cancer: No Cardiac Disorders: Yes (HCVD, chest pain syndrome) CVA: No COPD: No CHF: Yes Dementia: No Diabetes: Yes (TYPE II) GI Disorders: No Disorders: Yes (Renal Insuffiency) HTN: Yes Hypercholesterolemia: Yes Liver Disease: No Psychiatric Problems: Yes (anxiety) Seizures: No Thyroid Disease: No - Surgical History Abdominal Surgery: No Appendectomy: No Cardiac Surgery: Yes (STENTS/PPM 2007) Cholecystectomy: No Lung Surgery: No Neurologic Surgery: No Orthopedic Surgery: No - Immunization History Td Vaccination: Yes TDAP Vaccination: Yes Immunization Up to Date: Yes - Suicide/Smoking/Psychosocial Hx Smoking Status: No Smoking History: Never smoked Have you smoked in the past 12 months: No Number of Cigarettes Smoked Daily: 0 Information on smoking cessation initiated: No Hx Alcohol Use: No Drug/Substance Use Hx: No Substance Use Type: None Hx Substance Use Treatment: No <Va Gomez - Last Filed: 03/10/18 13:53> <Jose Maria Montgomery - Last Filed: 03/10/18 17:46> <Niles Andino - Last Filed: 03/10/18 19:05> - Past Medical History Allergies/Adverse Reactions: Allergies Allergy/AdvReac Type Severity Reaction Status Date / Time No Known Allergies Allergy Verified 03/10/18 11:24 Home Medications: Ambulatory Orders Allopurinol [Zyloprim -] 100 mg PO DAILY 02/24/16 Aspirin [ASA -] 81 mg PO DAILY 02/24/16 Ferrous Sulfate 324 mg PO TID 02/24/16 Gabapentin 300 mg PO DAILY 02/24/16 Omeprazole 20 mg PO DAILY 10/02/16 Pyridoxine HCl (B-6) [Vitamin B6 -] 50 mg PO DAILY 10/02/16 Insulin Sliding Scale [Novolog Vial Sliding Scale -] 1 vial SQ TIDAC units 08/24 traMADol HCL [Ultram -] 50 mg PO Q6H PRN #30 tablet MDD 4 12/18/16 Carvedilol [Coreg -] 6.25 mg PO BID #60 tablet 02/24/17 Docusate Sodium [Colace -] 100 mg PO BID PRN #60 tab 02/24/17 Furosemide [Lasix -] 20 mg PO DAILY #30 tablet 02/24/17 Insulin (Levemir) [Levemir Vial] 15 units SQ HS #100 ml 02/24/17 Spironolactone [Aldactone -] 25 mg PO DAILY #30 tablet 02/24/17 Valsartan [Diovan] 40 mg PO DAILY #30 tablet 02/24/17 Review of Systems - Review of Systems Able to Perform ROS?: No Comments:: 03/10/18 14:00 History is limited due to somnolence. <Jose Maria Montgomery - Last Filed: 03/10/18 17:46> *Physical Exam - Vital Signs Last Vital Signs Temp Pulse Resp BP Pulse Ox 99.3 F 78 20 122/55 90 L 03/10/18 11:24 03/10/18 11:24 03/10/18 11:24 03/10/18 11:24 03/10/18 11:24 <Va Gomez - Last Filed: 03/10/18 13:53> - Vital Signs Last Vital Signs Temp Pulse Resp BP Pulse Ox 99.3 F 78 20 122/55 90 L 03/10/18 11:24 03/10/18 11:24 03/10/18 11:24 03/10/18 11:24 03/10/18 11:24 - Physical Exam Comments: 03/10/18 14:00 GENERAL: Somnolent but arousable. In no acute distress HEAD: No signs of trauma EYES: PERRLA, EOMI, sclera anicteric, conjunctiva clear ENT: Auricles normal inspection, hearing grossly normal, nares patent. Moist mucosa NECK: Normal ROM, supple, no lymphadenopathy, JVD, or masses LUNGS: Breath sounds equal, clear to auscultation bilaterally. No wheezes, and no crackles HEART: Regular rate and rhythm, normal S1 and S2, no murmurs, rubs or gallops ABDOMEN: Soft, nontender, obese, normoactive bowel sounds. No guarding, no rebound. No masses BACK: No midline cervical spine tenderness. EXTREMITIES: Chronic venous stasis. Right anterior alcantara erythema. 2+ pitting edema in the bilateral lower extremities. Hips nontender with full range of motion. Full range of motion to knees bilaterally. Normal range of motion at the remainder of the extremities. No clubbing or cyanosis. No cords, erythema, or tenderness. DP/PT pulses 2+ and symmetric. NEUROLOGICAL: Moves all extremities to command SKIN: Warm, Dry, normal turgor, no rashes or lesions noted. <Jose Maria Montgomery - Last Filed: 03/10/18 17:46> - Vital Signs Last Vital Signs Temp Pulse Resp BP Pulse Ox 99.3 F 78 19 149/71 100 03/10/18 11:24 03/10/18 18:25 03/10/18 18:25 03/10/18 18:25 03/10/18 18:25 <Niles Andino - Last Filed: 03/10/18 19:05> ED Treatment Course - LABORATORY CBC & Chemistry Diagram: 03/10/18 12:57 03/10/18 12:57 - ADDITIONAL ORDERS Additional order review: Laboratory Results 03/10/18 12:57 PT with INR 12.20 INR 1.08 PTT (Actin FS) 31.3 03/10/18 12:57 RBC 4.34 MCV 69.2 L MCHC 31.5 L RDW 16.2 H MPV 10.3 Neutrophils % 70.7 D Lymphocytes % 17.0 D Monocytes % 8.7 Eosinophils % 2.7 Basophils % 0.9 - RADIOLOGY Radiology Studies Ordered: Category Date Time Status KNEE 2 POS-LEFT [RAD] Stat Radiology 03/10/18 13:36 Ordered KNEE 2 POS-RIGHT [RAD] Stat Radiology 03/10/18 13:36 Ordered <Va Gomez - Last Filed: 03/10/18 13:53> - LABORATORY CBC & Chemistry Diagram: 03/10/18 12:57 03/10/18 12:57 - ADDITIONAL ORDERS Additional order review: Laboratory Results 03/10/18 12:57 PT with INR 12.20 INR 1.08 PTT (Actin FS) 31.3 03/10/18 12:57 RBC 4.34 MCV 69.2 L MCHC 31.5 L RDW 16.2 H MPV 10.3 Neutrophils % 70.7 D Lymphocytes % 17.0 D Monocytes % 8.7 Eosinophils % 2.7 Basophils % 0.9 - RADIOLOGY Radiograph Interpretation: 03/10/18 17:47 EXAM: Head CT INTERPRETED BY: Dr. Cueva REVIEWED BY: Dr. Gomez IMPRESSION: No significant interval change. Moderate atrophy and chronic microvascular disease changes without gross evidence of acute intracranial pathology. Correlate clinically to determine further evaluation and follow-up. EXAM: Duplex US INTERPRETED BY: Dr. Frye REVIEWED BY: Dr. Gomez IMPRESSION: No evidence of deep venous thrombosis. <Jose Maria Montgomery - Last Filed: 03/10/18 17:46> - LABORATORY CBC & Chemistry Diagram: 03/10/18 12:57 03/10/18 12:57 - ADDITIONAL ORDERS Additional order review: Laboratory Results 03/10/18 03/10/18 03/10/18 12:57 12:57 12:57 PT with INR 12.20 INR 1.08 PTT (Actin FS) 31.3 Sodium 147 H Potassium 4.1 Chloride 109 H Carbon Dioxide 30 Anion Gap 8 BUN 37 H Creatinine 2.1 H Creat Clearance w eGFR 23.09 Random Glucose 111 H Calcium 9.2 Total Bilirubin 0.4 D AST 25 ALT 17 Alkaline Phosphatase 133 H Total Protein 7.2 Albumin 3.3 L Blood Type O POSITIVE Antibody Screen Negative 03/10/18 12:57 RBC 4.34 MCV 69.2 L MCHC 31.5 L RDW 16.2 H MPV 10.3 Neutrophils % 70.7 D Lymphocytes % 17.0 D Monocytes % 8.7 Eosinophils % 2.7 Basophils % 0.9 - RADIOLOGY Radiology Studies Ordered: Category Date Time Status HEAD CT WITHOUT CONTRAST [CT] Stat CT Scan 03/10/18 12:45 Completed CHEST - PA [RAD] Stat Radiology 03/10/18 12:46 Taken HIP & PELVIS-LEFT [RAD] Stat Radiology 03/10/18 12:45 Taken HIP & PELVIS-RIGHT [RAD] Stat Radiology 03/10/18 12:45 Taken DUPLEX VASCUL US-2LEGS [US] Stat Ultrasound 03/10/18 12:47 Completed <Niles Andino - Last Filed: 03/10/18 19:05> Medical Decision Making - Medical Decision Making 03/10/18 13:53 72 yo F with h/o obesity DM CAD HTN CKD here with home health aid who provides history as pt is drowsy and poor historian, here s/p fall from her chair. per her aid she slipped out of chair and was complaining of kne pain. on exam, pt drowsy but arousable, head atraumatic. no midline cervcial spine tenderness. lugns clear bilaterallly. heart rrr no mrg. abd soft obese nt. hips NT FROM, knee FROM. bilat lower extremity edema ,pitting . mild erythema right anterior alcantara. differential: occult hip fracture, knee fx, head injury ( pt appears drowsy), pneumonia or chf as cause for edema and drowsiness. plan ct head cxr xray plevis and hips, knee xray. reassess. <Va Gomez - Last Filed: 03/10/18 13:53> *DC/Admit/Observation/Transfer <Va Gomez - Last Filed: 03/10/18 13:53> - Attestations Scribe Attestion: 03/10/18 14:02 Documentation prepared by Jose Maria Montgomery, acting as medical clerical assistant for Va Gomez MD. <Jose Maria Montgomery - Last Filed: 03/10/18 17:46> - Discharge Dispostion Admit: Yes <Niles Andino - Last Filed: 03/10/18 19:05> Diagnosis at time of Disposition: Fall, Altered mental state - Referrals Referrals: Margarita Ochoa MD [Primary Care Provider] - - Patient Instructions - Post Discharge Activity
[2018-03-10 13:59] LABS: ALK PHOS 133 U/L (45-117); BILIRUBIN,TOTAL 0.4 mg/dL (0.2-1.0); TOT PROT 7.2 g/dl (6.4-8.2)
--- NOTE | 2018-03-10 19:48 | HP ---
CHIEF COMPLAINT: s/p Fall, AMS PCP: Dr. Margarita Fink HISTORY OF PRESENT ILLNESS: 72 y/o woman PMH: HTN, HLD, CAD (s/p stents), PPM (2007), CHF, IDDM, Anemia, CKD , Severe Obesity. Who presents to the ED s/p fall with AMS. Patient had an unwitnessed fall- out of chair. Per ED record: Per aide, initially present at bedside, the patient fell out of her chair secondary to dizziness earlier today. Unclear if patient had any head trauma, LOC, changes in vision, numbness , tingling, neck or back pain. Patient initially reported knee pain, but denies any hip pain. Patient is a poor historian, drowsy but arousable. ER course was notable for: (1) Head CT- neg ICH, chronic microvascular changes (2) Na 147 (3) Duplex LE- neg DVT Recent Travel: None PAST MEDICAL HISTORY: See HPI PAST SURGICAL HISTORY: See HPI Social History: Smoking: Never smoked Alcohol: None Drugs: None Has BUSHEL GIRL Family History: Unable to obtain Allergies No Known Allergies Allergy (Verified 03/10/18 11:24) HOME MEDICATIONS: Home Medications Medication Instructions Recorded Allopurinol [Zyloprim -] 100 mg PO DAILY 02/24/16 Aspirin [ASA -] 81 mg PO DAILY 02/24/16 Ferrous Sulfate 324 mg PO TID 02/24/16 Gabapentin 300 mg PO DAILY 02/24/16 Omeprazole 20 mg PO DAILY 10/02/16 Pyridoxine HCl (B-6) [Vitamin B6 -] 50 mg PO DAILY 10/02/16 Insulin Sliding Scale [Novolog 1 vial SQ TIDAC units 12/18/16 Vial Sliding Scale -] traMADol HCL [Ultram -] 50 mg PO Q6H PRN #30 tablet MDD 4 12/18/16 Carvedilol [Coreg -] 6.25 mg PO BID #60 tablet 02/24/17 Docusate Sodium [Colace -] 100 mg PO BID PRN #60 tab 02/24/17 Furosemide [Lasix -] 20 mg PO DAILY #30 tablet 02/24/17 Insulin (Levemir) [Levemir Vial] 15 units SQ HS #100 ml 02/24/17 Spironolactone [Aldactone -] 25 mg PO DAILY #30 tablet 02/24/17 Valsartan [Diovan] 40 mg PO DAILY #30 tablet 02/24/17 REVIEW OF SYSTEMS Poor Historian- Unable to Obtain CONSTITUTIONAL: Absent: fever, chills, diaphoresis, generalized weakness, malaise, loss of appetite, weight change HEENT: Absent: rhinorrhea, nasal congestion, throat pain, throat swelling, difficulty swallowing, mouth swelling, ear pain, eye pain, visual changes CARDIOVASCULAR: Absent: chest pain, syncope, palpitations, irregular heart rate, lightheadedness , peripheral edema RESPIRATORY: Absent: cough, shortness of breath, dyspnea with exertion, orthopnea, wheezing, stridor, hemoptysis GASTROINTESTINAL: Absent: abdominal pain, abdominal distension, nausea, vomiting, diarrhea, constipation, melena, hematochezia GENITOURINARY: Absent: dysuria, frequency, urgency, hesitancy, hematuria, flank pain, genital pain MUSCULOSKELETAL: Absent: myalgia, arthralgia, joint swelling, back pain, neck pain SKIN: Absent: rash, itching, pallor HEMATOLOGIC/IMMUNOLOGIC: Absent: easy bleeding, easy bruising, lymphadenopathy, frequent infections ENDOCRINE: Absent: unexplained weight gain, unexplained weight loss, heat intolerance, cold intolerance NEUROLOGIC: Absent: headache, focal weakness or paresthesias, dizziness, unsteady gait, seizure, mental status changes, bladder or bowel incontinence PSYCHIATRIC: Absent: anxiety, depression, suicidal or homicidal ideation, hallucinations. PHYSICAL EXAMINATION Vital Signs - 24 hr 03/10/18 03/10/18 11:24 18:25 Temperature 99.3 F Pulse Rate 78 Pulse Rate [ 78 Apical] Respiratory 20 19 Rate Blood Pressure 122/55 Blood Pressure 149/71 [Right Arm] O2 Sat by Pulse 90 L 100 Oximetry (%) GENERAL: Awake, Alert, Oriented to name, in no acute distress. HEAD: Normal with no signs of trauma. EYES: Pupils equal, round and reactive to light, extraocular movements intact, sclera anicteric, No lid lag. conjunctiva mucoid discharge both eyes EARS, NOSE, THROAT: Ears normal, nares patent, oropharynx clear without exudates. Dry mucous membranes. NECK: Normal range of motion, supple without lymphadenopathy, JVD, or masses. LUNGS: Breath sounds equal, clear to auscultation bilaterally. No wheezes, and no crackles. No accessory muscle use. HEART: Regular rate and rhythm, normal S1 and S2 without murmur, rub or gallop. ABDOMEN: Soft, nontender, not distended, normoactive bowel sounds, no guarding, no rebound, no masses. No hepatomegaly or splenomegaly. MUSCULOSKELETAL: Limited range of motion at all joints.L- knee tenderness. No bony deformities or L- knee tenderness. No CVA tenderness. UPPER EXTREMITIES: 2+ pulses, warm, well-perfused. No cyanosis. No clubbing. No peripheral edema. LOWER EXTREMITIES: 2+ pulses, warm, well-perfused. No calf tenderness. +2 pitting B/L peripheral edema. NEUROLOGICAL: Cranial nerves II-XII intact. Garbled speech- baseline. Gait not observed. PSYCHIATRIC: Cooperative. Good eye contact. Appropriate mood and affect. SKIN: Warm, dry, normal turgor, no rashes or lesions noted, normal capillary refill. Laboratory Results - last 24 hr 03/10/18 03/10/18 03/10/18 12:57 12:57 12:57 WBC 8.4 RBC 4.34 Hgb 9.5 L Hct 30.0 L MCV 69.2 L MCH 21.8 L MCHC 31.5 L RDW 16.2 H Plt Count 195 MPV 10.3 Neutrophils % 70.7 D Lymphocytes % 17.0 D Monocytes % 8.7 Eosinophils % 2.7 Basophils % 0.9 PT with INR 12.20 INR 1.08 PTT (Actin FS) 31.3 Sodium 147 H Potassium 4.1 Chloride 109 H Carbon Dioxide 30 Anion Gap 8 BUN 37 H Creatinine 2.1 H Creat Clearance w eGFR 23.09 Random Glucose 111 H Calcium 9.2 Total Bilirubin 0.4 D AST 25 ALT 17 Alkaline Phosphatase 133 H Total Protein 7.2 Albumin 3.3 L Blood Type Antibody Screen 03/10/18 12:57 WBC RBC Hgb Hct MCV MCH MCHC RDW Plt Count MPV Neutrophils % Lymphocytes % Monocytes % Eosinophils % Basophils % PT with INR INR PTT (Actin FS) Sodium Potassium Chloride Carbon Dioxide Anion Gap BUN Creatinine Creat Clearance w eGFR Random Glucose Calcium Total Bilirubin AST ALT Alkaline Phosphatase Total Protein Albumin Blood Type O POSITIVE Antibody Screen Negative ASSESSMENT/PLAN: This is a 72 y/o woman PMH: Severe Obesity, Anemia, CAD s/p stents, PPM (2007), CHF, CKD, HTN, HLD, IDDM, Anxiety. Admitted for Fall, Acute Metabolic Encephalopathy secondary to CHF Exacerbation. Head CT- moderate atrophy and chronic microvascular changes, no ICH. Duplex LE- no DVT EKG- Ventricular paced rhythm 72 bpm, QT/QTc 468/512 Problem List - Problem (1) Fall Assessment/Plan: - s/p unwitnessed fall - Head CT-moderate atrophy and chronic microvascular disease, no ICH - Xray Hip/Pelvis- no acute bony abnormalities - Xray knee- pending - Tylenol prn - PT for ROM, conditioning - Fall Precautions Code(s): W19.XXXA - UNSPECIFIED FALL, INITIAL ENCOUNTER (2) Acute metabolic encephalopathy Assessment/Plan: - Likely secondary to Congestive Heart Failure - Fall Precautions and neurochecks Code(s): G93.41 - METABOLIC ENCEPHALOPATHY (3) Altered mental state Assessment/Plan: - Likely secondary to Fall vs CHF vs Dehydration - CT Head- neg ICH - Na 147 - BUN 37 - Monitor CBC, BMP - Neuro checks - Fall Precautions - Monitor vitals Code(s): R41.82 - ALTERED MENTAL STATUS, UNSPECIFIED (4) CHF (congestive heart failure) Assessment/Plan: - Chest Xray- vascular changes - Continue Lasix - Monitor renal function - Strict INOs - Daily Weights Code(s): I50.9 - HEART FAILURE, UNSPECIFIED Qualifiers: (5) Conjunctivitis of both eyes Assessment/Plan: - On exam- mucopurulent discharge to both eyes - Will start Ofloxacin for 7 days Code(s): H10.9 - UNSPECIFIED CONJUNCTIVITIS (6) Renal insufficiency Assessment/Plan: - Cr 2.1 at baseline - Will continue to monitor and treat with interventions accordingly - FU with Nephrology if condition worsens Code(s): N28.9 - DISORDER OF KIDNEY AND URETER, UNSPECIFIED (7) CAD (coronary artery disease) Assessment/Plan: - stable - pt denies CP or SOB - s/p Stents - EKG- ventricular paced rhythm Code(s): I25.10 - ATHSCL HEART DISEASE OF [place] CORONARY ARTERY W/O ANG PCTRS Qualifiers: (8) HTN (hypertension) Assessment/Plan: - Stable - Monitor BP - Continue Valsartan, Coreg with parameters - Monitor renal function Code(s): I10 - ESSENTIAL (PRIMARY) HYPERTENSION Qualifiers: (9) IDDM (insulin dependent diabetes mellitus) Assessment/Plan: - Stable - BGMs - Hold ISS until diet resumed concern for Hypoglycemia Code(s): E11.9 - TYPE 2 DIABETES MELLITUS WITHOUT COMPLICATIONS; Z79.4 - [facility] (CURRENT) USE OF INSULIN (10) Anemia Assessment/Plan: - Hgb at baseline - Will transfuse if Hgb < 7.0 - Continue Ferrous Sulfate Code(s): D64.9 - ANEMIA, UNSPECIFIED Qualifiers: Anemia type: iron deficiency (11) Hypercholesterolemia Assessment/Plan: - Will continue home med after swallow eval Code(s): E78.0 - PURE HYPERCHOLESTEROLEMIA * DO NOT USE * (12) DVT prophylaxis Assessment/Plan: - SCDs - Heparin SQ, monitor H/H closely Code(s): [id number] - Visit type - Emergency Visit Emergency Visit: Yes ED Registration Date: 03/10/18 Care time: The patient presented to the Emergency Department on the above date and was hospitalized for further evaluation of their emergent condition. - New Patient This patient is new to me today: Yes Date on this admission: 03/10/18 - Critical Care Critical Care patient: No Hospitalist Screening - Colonoscopy Questionnaire Colonoscopy Questionnaire: Colonoscopy Questionnaire - Patient: 50 - 75 years old and never had a screening colonoscopy: Unknown History of colon or rectal polyps, or CA: Unknown History of IBD, Crohn's disease or UC: Unknown History of abdominal radiation therapy as a child: Unknown - Relative: 1 with colon or rectal CA, or polyps at age 60 or younger: Unknown Colon or rectal CA diagnosed at age 45 or younger: Unknown Multiple relatives with colon or rectal CA: Unknown - Outcome: Screening Result: Negative Screen
[2018-03-10 20:27] LABS: URINE APPEARANCE CLEAR; URINE BILIRUBIN NEGATIVE (<2.0 mg/dL); URINE COLOR LTYELLOW; URINE GLUCOSE (UA) NEGATIVE (NEGATIVE); URINE KETONE NEGATIVE (NEGATIVE); URINE LEUK ESTERASE NEGATIVE (NEGATIVE); URINE NITRITE NEGATIVE (NEGATIVE); URINE PROTEIN NEGATIVE (NEGATIVE); URINE UROBILINOGEN NEGATIVE mg/dL (0.2-1.0)
[2018-03-11] MEDS ORDERED: DOCUSATE SODIUM 100 MG CAPSULE (FP) PO PRN (08:45)
[2018-03-11 08:50] LABS: BASO % 0.7 % (0-2.0); HEMOGLOBIN 9.2 GM/dL (10.7-15.3); LYMPH % 19.2 % (8-40); MCHC 31.6 g/dl (32.0-36.0); MEAN CELL VOLUME 69.8 fl (80-96); MEAN PLT VOLUME 10.3 fl (7.5-11.1); MONO % 8.7 % (3.8-10.2); NEUT % 67.4 % (42.8-82.8); PLATELET COUNT 193 K/MM3 (134-434); RBC 4.16 M/mm3 (3.60-5.2); RDW 16.1 % (11.6-15.6); WHITE BLOOD COUNT 7.3 K/mm3 (4.0-10.0)
[2018-03-11 08:58] LABS: ANION GAP 5 (8-16); BLOOD UREA NITROGEN 30 mg/dL (7-18); CHLORIDE 111 mmol/L (98-107); CO2 30 mmol/L (21-32); CREATININE 1.8 mg/dL (0.55-1.02); GLUCOSE,RANDOM 91 mg/dL (74-106); PHOSPHOROUS 4.3 mg/dL (2.5-4.9); POTASSIUM 4.5 mmol/L (3.5-5.1); SODIUM 146 mmol/L (136-145)
[2018-03-11 09:00] LABS: CALCIUM 8.7 mg/dL (8.5-10.1)
[2018-03-11 09:38] LABS: N-TERMINAL BNP 1596.17 pg/ml (5-125)
[2018-03-11] MEDS ORDERED: FUROSEMIDE 40 MG/4 ML INJECTABLE VIAL IVPUSH SCH (10:00)
[2018-03-11] MEDS: VALSARTAN 40 MG TABLET (FP) PO SCH (11:03)
[2018-03-11] MEDS: ASPIRIN 81 MG CHEWABLE TABLETS PO SCH (11:03)
[2018-03-11] MEDS: CARVEDILOL 6.25 MG TABLET (FP) PO SCH ×2 (11:03→22:04)
[2018-03-11] MEDS: PANTOPRAZOLE 20 MG TABLET (FP) PO SCH (11:04)
[2018-03-11] MEDS: ALLOPURINOL 100 MG TABLET (FP) PO SCH (11:04)
[2018-03-11] MEDS: OFLOXACIN 0.3% OPHTHALMIC SOLUTION 5 ML BOTTLE OU SCH ×4 (11:04→22:07)
[2018-03-11] MEDS: GABAPENTIN 300 MG CAPSULE (FP) PO SCH (11:04)
[2018-03-11] MEDS: PYRIDOXINE HCL (B-6) 50 MG TABLET (FP) PO SCH (11:04)
[2018-03-11] MEDS: SPIRONOLACTONE 25 MG TABLET (FP) PO SCH (11:05)
[2018-03-11] MEDS: HEPARIN NA (PORCINE) 5,000 UNITS/ML 1ML VIAL SQ SCH ×2 (11:06→22:04)
--- NOTE | 2018-03-11 11:43 | PN ---
Progress Note (short form) - Note Progress Note: pt seen/ examined. Chart reviewed. Sitting in chair. c/c - pain in left knee pt well known to me . Vital Signs Temp 98.7 F 03/11/18 06:00 Pulse 79 03/11/18 06:00 Resp 18 03/11/18 06:00 BP 140/60 03/11/18 06:00 Pulse Ox 97 03/11/18 03:05 Intake & Output 03/10/18 03/10/18 03/11/18 11:59 23:59 11:59 Output Total 1300 Balance -1300 Weight 235 lb 261 lb Output: Urine 1300 Andrade 1300 Other: Voiding Method Indwelling Catheter Bowel Movement No Height 5 ft 4 in 5 ft 4 in Body Mass Index (BMI) 40.3 44.8 Weight Measurement Method Built in [facility] Weight Measurement Method Est/Stated by Patient Active Medications Allopurinol (Zyloprim -) 100 mg PO DAILY [facility] Last Admin: 03/11/18 11:04 Dose: 100 mg Aspirin (Asa -) 81 mg PO DAILY [facility] Last Admin: 03/11/18 11:03 Dose: 81 mg Carvedilol (Coreg -) 6.25 mg PO BID [facility] Last Admin: 03/11/18 11:03 Dose: 6.25 mg Docusate Sodium (Colace -) 100 mg PO BID PRN PRN Reason: CONSTIPATION Ferrous Sulfate (Feosol -) 325 mg PO TID [facility] Gabapentin (Neurontin -) 300 mg PO DAILY [facility] Last Admin: 03/11/18 11:04 Dose: 300 mg Heparin Sodium (Porcine) (Heparin -) 5,000 unit SQ BID [facility] Last Admin: 03/11/18 11:06 Dose: 5,000 unit Ofloxacin (Ocuflox 0.3% Eye Drops -) 1 drop OU Q4HWA [facility] Stop: 03/18/18 09:59 Last Admin: 03/11/18 11:04 Dose: 1 drop Pantoprazole Sodium (Protonix -) 20 mg PO DAILY [facility] Last Admin: 03/11/18 11:04 Dose: 20 mg Pyridoxine HCl (Vitamin B6 -) 50 mg PO DAILY [facility] Last Admin: 03/11/18 11:04 Dose: 50 mg Spironolactone (Aldactone -) 25 mg PO DAILY [facility] Last Admin: 03/11/18 11:05 Dose: 25 mg Valsartan (Diovan -) 40 mg PO DAILY [facility] Last Admin: 03/11/18 11:03 Dose: 40 mg CBC, BMP 03/11/18 08:10 03/11/18 08:10 Physical Exam Constitutional: Yes: No Distress. calm.Obese Cardiovascular: Yes: Regular Rate and Rhythm Respiratory: Yes: Diminished at bases Gastrointestinal: Yes: Normal Bowel Sounds, Soft, Abdomen, Obese. No: Tenderness Extremities: Yes: mild left knee swelling. no warmth slightly tender on palpation Assessment/Plan clinically stable pain control monitor bgm. will consult ortho- should benefit from shot-- left knee. pain control will consult cardiology also -- fall-- pt has pacemaker. will follow. discussed with nursing staff also. Problem List - Problems (1) Knee pain, left Code(s): M25.562 - PAIN IN LEFT KNEE (2) Fall Code(s): W19.XXXA - UNSPECIFIED FALL, INITIAL ENCOUNTER (3) CAD (coronary artery disease) Code(s): I25.10 - ATHSCL HEART DISEASE OF [place] CORONARY ARTERY W/O ANG PCTRS Qualifiers: (4) HTN (hypertension) Code(s): I10 - ESSENTIAL (PRIMARY) HYPERTENSION Qualifiers: (5) IDDM (insulin dependent diabetes mellitus) Code(s): E11.9 - TYPE 2 DIABETES MELLITUS WITHOUT COMPLICATIONS; Z79.4 - SKILLED NURSING (CURRENT) USE OF INSULIN (6) Renal insufficiency Code(s): N28.9 - DISORDER OF KIDNEY AND URETER, UNSPECIFIED
[2018-03-11] MEDS ORDERED: ACETAMINOPHEN 325 MG TABLET (FP) PO PRN (13:43)
--- NOTE | 2018-03-11 15:09 | CONSULT ---
Admitting History and Physical - Admission Chief Complaint: 72 y o female s/p fall and AMS. 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) Pulmonary: Yes: COPD Gastrointestinal: Yes: GERD, Other (anemia, IRON DEF) Renal/: Yes: Renal Inusuff Heme/Onc: Yes: Anemia Musculoskeletal: Yes: Osteoarthritis Rheumatology: Yes: Gout Endocrine: Yes: Diabetes Mellitus - Past Surgical History Past Surgical History: Yes: AICD, Stent - Smoking History Smoking history: Never smoked Have you smoked in the past 12 months: No Aproximately how many cigarettes per day: 0 - Alcohol/Substance Use Hx Alcohol Use: No - Social History ADL: Support Services History - Admission Reason For Visit: FALL - Diagnostics X-ray: Report Reviewed - General Mental Status: Alert and Oriented Attention: Intact Ability to Follow Directions: Good Head/Neck Control: WFL - Hearing Hearing: Functional Hearing: Normal Hearing Aide: No Speech Evaluation - Communication Primary Language: THAI CREOLE - Swallow Evaluation/Bedside Assessment Current Nutritional Intake: Regular Oral Secretions: Yes: WFL Tracheostomy Present: No Patient on Ventilator: No Dentition: Yes: Missing Teeth Facial Symmetry at Rest: Symmetrical Facial Symmetry on Retraction: Symmetrical Facial Movement: Controlled Sensation: Normal Jaw Position: Closed at Rest Against Resistance Opening: Normal Against Resistance Closing: Normal Pucker Lips: Normal Smile: Normal Lingual Movement: Normal Lingual Speed of Movement: Normal Lingual Movement Strgth Against Opposition: Normal Lingual Movement Characteristics: Normal Soft Palate Description: Normal Color Hard Palate Description: Normal Color Gag Reflex: Strong Bite Reflex: Absent Velopharyngeal Movement: Normal Laryngeal Elevation: WFL Laryngeal Movement: Able to Palpate Needs Assistance: No Rate of Intake: WFL Bolus Size: WFL Labial Seal: WFL Chewing: WFL Oral Prep Time: WFL A-P Transit: WFL Pocketing: None Timing of Swallow: WFL Coughing/Throat Clear: No Change in Voice: No Recommendations - Dysphagia Impressions/Plan Swallowing Skills: WFL Dysphagia Impressions: No Impairment - Recommendations Diet Consistency: Regular Medication Administration: Whole with water Liquids: Thin Liquids (This 72 year old female is able to tolerate thin liquids , purees and chewable solids without signs of aspiration.)
--- NOTE | 2018-03-11 15:13 | CON.ORTH ---
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) Pulmonary: Yes: COPD Gastrointestinal: Yes: GERD, Other (anemia, IRON DEF) Renal/: Yes: Renal Inusuff Musculoskeletal: Yes: Osteoarthritis Rheumatology: Yes: Gout Endocrine: Yes: Diabetes Mellitus - Past Surgical History Past Surgical History: Yes: AICD, Stent - Alcohol/Substance Use Hx Alcohol Use: No - Smoking History Smoking history: Never smoked Have you smoked in the past 12 months: No Aproximately how many cigarettes per day: 0 - Social History ADL: Support Services Home Medications - Allergies Allergies/Adverse Reactions: Allergies Allergy/AdvReac Type Severity Reaction Status Date / Time No Known Allergies Allergy Verified 03/10/18 11:24 - Home Medications Home Medications: Ambulatory Orders Allopurinol [Zyloprim -] 100 mg PO DAILY 02/24/16 Aspirin [ASA -] 81 mg PO DAILY 02/24/16 Ferrous Sulfate 324 mg PO TID 02/24/16 Gabapentin 300 mg PO DAILY 02/24/16 Omeprazole 20 mg PO DAILY 10/02/16 Pyridoxine HCl (B-6) [Vitamin B6 -] 50 mg PO DAILY 10/02/16 Insulin Sliding Scale [Novolog Vial Sliding Scale -] 1 vial SQ TIDAC units 08/24 traMADol HCL [Ultram -] 50 mg PO Q6H PRN #30 tablet MDD 4 12/18/16 Carvedilol [Coreg -] 6.25 mg PO BID #60 tablet 02/24/17 Docusate Sodium [Colace -] 100 mg PO BID PRN #60 tab 02/24/17 Furosemide [Lasix -] 20 mg PO DAILY #30 tablet 02/24/17 Insulin (Levemir) [Levemir Vial] 15 units SQ HS #100 ml 02/24/17 Spironolactone [Aldactone -] 25 mg PO DAILY #30 tablet 02/24/17 Valsartan [Diovan] 40 mg PO DAILY #30 tablet 02/24/17 Physical Exam for Ortho Vital Signs: Vital Signs Temperature 98.7 F 03/11/18 06:00 Pulse Rate 79 03/11/18 06:00 Respiratory Rate 18 03/11/18 06:00 Blood Pressure 140/60 03/11/18 06:00 O2 Sat by Pulse Oximetry (%) 97 03/11/18 09:00 Labs: CBC, BMP 03/11/18 08:10 03/11/18 08:10 INR, PTT INR 1.08 (0.82-1.09) 03/10/18 12:57 - Lower Extremity Knee: Yes: Left, Pain, Swelling, Tenderness, Other (minimal swelling, +ttp medial and lateral joint line, rom 0-100, calf soft, nt, b/l LE edema, nvi) Imaging - Results X-ray: Report Reviewed, Image Reviewed Assessment/Plan 72 year old female, with a significant past medical history of obesity, anemia, CHF, hypertension, hyperlipidemia, IDDM, CAD(s/p stents), hypertension, kidney disease, and anxiety who presents to the emergency department s/p unwitnessed fall 1 day ago. a/p left knee contusion, djd PT eval wbat pain control will hold off on injection at present time if pain does not improve-- then injection Pt agrees and understands with plan ok to d/c from ortho pov once medically stable d/w Dr. Joshi
[2018-03-11] MEDS ORDERED: PT OWN MED DRAWER 7, Y5N ONE (16:35)
[2018-03-11] MEDS: FERROUS SO4 325 MG TABLET (FP) PO SCH ×2 (17:20→22:04)
[2018-03-12] MEDS: OFLOXACIN 0.3% OPHTHALMIC SOLUTION 5 ML BOTTLE OU SCH ×5 (06:12→23:13)
[2018-03-12] MEDS: FERROUS SO4 325 MG TABLET (FP) PO SCH ×3 (06:13→23:12)
[2018-03-12] MEDS ORDERED: PT OWN MED DRAWER 7, Y5N ONE ×2 (10:16→13:34)
[2018-03-12] MEDS: HEPARIN NA (PORCINE) 5,000 UNITS/ML 1ML VIAL SQ SCH ×2 (10:24→23:12)
[2018-03-12] MEDS: PYRIDOXINE HCL (B-6) 50 MG TABLET (FP) PO SCH (10:24)
[2018-03-12] MEDS: VALSARTAN 40 MG TABLET (FP) PO SCH (10:24)
[2018-03-12] MEDS: GABAPENTIN 300 MG CAPSULE (FP) PO SCH (10:24)
[2018-03-12] MEDS: ASPIRIN 81 MG CHEWABLE TABLETS PO SCH (10:25)
[2018-03-12] MEDS: SPIRONOLACTONE 25 MG TABLET (FP) PO SCH (10:25)
[2018-03-12] MEDS: ALLOPURINOL 100 MG TABLET (FP) PO SCH (10:25)
[2018-03-12] MEDS: FUROSEMIDE 20 MG TABLET (FP) PO SCH (10:25)
[2018-03-12] MEDS: CARVEDILOL 6.25 MG TABLET (FP) PO SCH ×2 (10:25→23:12)
[2018-03-12] MEDS: PANTOPRAZOLE 20 MG TABLET (FP) PO SCH (10:25)
[2018-03-12] MEDS: INSULIN SLIDING SCALE (NOVOLOG) 1 VIAL SQ SCH ×3 (12:17→23:13)
[2018-03-12] MEDS ORDERED: LIDOCAINE HCL 1%, 10 MG/ML (50 mL VIAL) SQ ONE (13:10)
[2018-03-12] MEDS ORDERED: LIDOCAINE HCL 1%, 10 MG/ML (20ML VIAL) ONE (13:12)
[2018-03-12] MEDS ORDERED: methylPREDNISolone ACET (DEPO) 80 MG/1 ML VIAL IAR ONE (13:15)
--- NOTE | 2018-03-12 13:21 | PN ---
Progress Note (short form) - Note Progress Note: Ortho Pt seen and examined + swelling, + ttp, decr rom nvi a/p After consent obtained, time-out performed, under sterile technique, left knee was given a lido/depo injection, injection was tolerated well with no acute reactions. Cortisone will take 3-4 days up to 1 week to start taking effect May notice brief bump in blood glucose, NTD, will correct itself PT wbat ok to d/c from ortho pov when medically stable d/w Dr. Joshi
--- NOTE | 2018-03-12 13:28 | CON.CARD ---
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 She was alert and oriented at this time. Fall was unwitnessed. She denies chest pain, shortness of breath or palpitations. She denies paroxysmal nocturnal dyspnea or orthopnea. She denies fever or chills. She denies nausea, vomiting, diarrhea or abdominal pain. She denies headache or lightheadedness. 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) Pulmonary: Yes: COPD Gastrointestinal: Yes: GERD, Other (anemia, IRON DEF) Renal/: Yes: Renal Inusuff Musculoskeletal: Yes: Osteoarthritis Rheumatology: Yes: Gout Endocrine: Yes: Diabetes Mellitus - Past Surgical History Past Surgical History: Yes: AICD, Stent - Alcohol/Substance Use Hx Alcohol Use: No - Smoking History Smoking history: Never smoked Have you smoked in the past 12 months: No Aproximately how many cigarettes per day: 0 - Social History ADL: Support Services Home Medications - Allergies Allergies/Adverse Reactions: Allergies Allergy/AdvReac Type Severity Reaction Status Date / Time No Known Allergies Allergy Verified 03/10/18 11:24 - Home Medications Home Medications: Ambulatory Orders Allopurinol [Zyloprim -] 100 mg PO DAILY 02/24/16 Aspirin [ASA -] 81 mg PO DAILY 02/24/16 Ferrous Sulfate 324 mg PO TID 02/24/16 Gabapentin 300 mg PO DAILY 02/24/16 Omeprazole 20 mg PO DAILY 10/02/16 Pyridoxine HCl (B-6) [Vitamin B6 -] 50 mg PO DAILY 10/02/16 Insulin Sliding Scale [Novolog Vial Sliding Scale -] 1 vial SQ TIDAC units 08/24 traMADol HCL [Ultram -] 50 mg PO Q6H PRN #30 tablet MDD 4 12/18/16 Carvedilol [Coreg -] 6.25 mg PO BID #60 tablet 02/24/17 Docusate Sodium [Colace -] 100 mg PO BID PRN #60 tab 02/24/17 Furosemide [Lasix -] 20 mg PO DAILY #30 tablet 02/24/17 Insulin (Levemir) [Levemir Vial] 15 units SQ HS #100 ml 02/24/17 Spironolactone [Aldactone -] 25 mg PO DAILY #30 tablet 02/24/17 Valsartan [Diovan] 40 mg PO DAILY #30 tablet 02/24/17 Review of Systems - Review of Systems Constitutional: denies: Chills, Fever Cardiovascular: denies: Chest Pain, Palpitations, Shortness of Breath Respiratory: denies: Cough, Hemoptysis, Orthopnea, PND, SOB, SOB on Exertion, Wheezing Gastrointestinal: denies: Abdominal Pain, Constipation, Diarrhea, Melena, Nausea , Rectal Bleeding, Vomiting Genitourinary: denies: Dysuria, Hematuria Musculoskeletal: reports: Joint Pain Neurological: denies: Dizziness, Headache, Numbness, Seizure, Syncope, Weakness Vital Signs: Vital Signs Temperature 98.6 F 03/12/18 09:00 Pulse Rate 71 03/12/18 09:00 Respiratory Rate 20 03/12/18 09:00 Blood Pressure 131/64 03/12/18 09:00 O2 Sat by Pulse Oximetry (%) 97 03/12/18 09:00 Constitutional: Yes: Well Nourished Eyes: Yes: PERRL HENT: Yes: Atraumatic Neck: Yes: Supple Respiratory: Yes: CTA Bilaterally Gastrointestinal: Yes: Normal Bowel Sounds, Soft, Abdomen, Obese. No: Tenderness Cardiovascular: Yes: Regular Rate and Rhythm JVD: No Carotid Bruit: No PMI: Non-Displaced Heart Sounds: Yes: S1, S2 Edema: Yes Edema: LLE: Trace, RLE: Trace - Other Data Labs, Other Data: CBC, BMP 03/11/18 08:10 03/11/18 08:10 INR, PTT INR 1.08 (0.82-1.09) 03/10/18 12:57 Laboratory Results - last 24 hr 03/11/18 03/11/18 03/12/18 17:00 22:22 06:21 POC Glucometer 275 330 279 Imaging - Results Chest X-ray: Report Reviewed (Unremarkable) X-ray: Report Reviewed (Knee xray unremarkable) Ultrasound: Report Reviewed (No DVT) EKG: Report Reviewed Problem List - Problems (1) Biventricular ICD (implantable cardioverter-defibrillator) in place Code(s): Z95.810 - PRESENCE OF AUTOMATIC (IMPLANTABLE) CARDIAC DEFIBRILLATOR (2) Altered mental state Code(s): R41.82 - ALTERED MENTAL STATUS, UNSPECIFIED (3) Acute on chronic renal insufficiency Code(s): N28.9 - DISORDER OF KIDNEY AND URETER, UNSPECIFIED; N18.9 - CHRONIC KIDNEY DISEASE, UNSPECIFIED (4) Acute right-sided CHF (congestive heart failure) Code(s): I50.9 - HEART FAILURE, UNSPECIFIED (5) Anemia Code(s): D64.9 - ANEMIA, UNSPECIFIED Qualifiers: Anemia type: iron deficiency (6) CAD (coronary artery disease) Code(s): I25.10 - ATHSCL HEART DISEASE OF [place] CORONARY ARTERY W/O ANG PCTRS Qualifiers: Coronary Disease-Associated Artery/Lesion type: [place] artery [place] vs. transplanted heart: [place] heart Associated angina: without angina Qualified Code(s): I25.10 - Atherosclerotic heart disease of [place] coronary artery without angina pectoris (7) HTN (hypertension) Code(s): I10 - ESSENTIAL (PRIMARY) HYPERTENSION Qualifiers: Hypertension type: essential hypertension (8) History of percutaneous coronary intervention Code(s): Z98.89 - OTHER SPECIFIED POSTPROCEDURAL STATES * DO NOT USE * Assessment/Plan 1. S/P fall no fracture 2. CAD s/p PCI/stent, angina pectoris 3. 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 LV diastolic dysfunction with no clinical evidence of heart failure 5. HTN/HCVD 6. Type 2 diabetes mellitus 7. Hypercholesterolemia PLAN: 1. Supportive care 2. Continue Carvedilol and Valsartan 3. Lasix and Spironolactone 4. ASA 5. Statin not listed as current medication. Will check office records 6. Possible SNF Further plans are to follow Nima Mcgill MD
--- NOTE | 2018-03-12 14:38 | EKG ---
Test Reason : Blood Pressure : / mmHG Vent. Rate : 072 BPM Atrial Rate : 072 BPM P-R Int : 000 ms QRS Dur : 166 ms QT Int : 468 ms P-R-T Axes : 035 118 073 degrees QTc Int : 512 ms Ventricular-paced rhythm ABNORMAL ECG WHEN COMPARED WITH ECG OF 15-DEC-2016 15:41, VENT. RATE HAS DECREASED BY 13 BPM Confirmed by MD Pete, Librado ([id number]) on 03/12/2018 2:38:37 PM Referred By: Confirmed By:Librado Freeman MD
--- NOTE | 2018-03-12 16:46 | PN ---
Progress Note, Physician Chief Complaint: events noted has pain in left knee - Current Medication List Current Medications: Active Medications Acetaminophen (Tylenol -) 650 mg PO Q6H PRN PRN Reason: PAIN LEVEL 1-5 Allopurinol (Zyloprim -) 100 mg PO DAILY [facility] Last Admin: 03/12/18 10:25 Dose: 100 mg Aspirin (Asa -) 81 mg PO DAILY [facility] Last Admin: 03/12/18 10:25 Dose: 81 mg Carvedilol (Coreg -) 6.25 mg PO BID [facility] Last Admin: 03/12/18 10:25 Dose: 6.25 mg Docusate Sodium (Colace -) 100 mg PO BID PRN PRN Reason: CONSTIPATION Ferrous Sulfate (Feosol -) 325 mg PO TID [facility] Last Admin: 03/12/18 13:35 Dose: 325 mg Furosemide (Lasix -) 20 mg PO DAILY [facility] Last Admin: 03/12/18 10:25 Dose: 20 mg Gabapentin (Neurontin -) 300 mg PO DAILY [facility] Last Admin: 03/12/18 10:24 Dose: 300 mg Heparin Sodium (Porcine) (Heparin -) 5,000 unit SQ BID [facility] Last Admin: 03/12/18 10:24 Dose: 5,000 unit Insulin Aspart (Novolog Vial Sliding Scale -) 1 vial SQ ACHS [facility] PRN Reason: Protocol Last Admin: 03/12/18 12:17 Dose: 10 units Ofloxacin (Ocuflox 0.3% Eye Drops -) 1 drop OU Q4HWA [facility] Stop: 03/18/18 09:59 Last Admin: 03/12/18 13:35 Dose: 1 drop Pantoprazole Sodium (Protonix -) 20 mg PO DAILY [facility] Last Admin: 03/12/18 10:25 Dose: 20 mg Pyridoxine HCl (Vitamin B6 -) 50 mg PO DAILY [facility] Last Admin: 03/12/18 10:24 Dose: 50 mg Spironolactone (Aldactone -) 25 mg PO DAILY [facility] Last Admin: 03/12/18 10:25 Dose: 25 mg Tramadol HCl (Ultram -) 50 mg PO Q6H PRN PRN Reason: PAIN LEVEL 6-10 Valsartan (Diovan -) 40 mg PO DAILY [facility] Last Admin: 03/12/18 10:24 Dose: 40 mg - Objective Vital Signs: Vital Signs Temperature 98.4 F 03/12/18 14:00 Pulse Rate 75 03/12/18 14:00 Respiratory Rate 18 03/12/18 14:00 Blood Pressure 123/66 03/12/18 14:00 O2 Sat by Pulse Oximetry (%) 97 03/12/18 09:00 Constitutional: Yes: No Distress Cardiovascular: Yes: Regular Rate and Rhythm Respiratory: Yes: Diminished Gastrointestinal: Yes: Normal Bowel Sounds, Soft, Abdomen, Obese. No: Tenderness Extremities: Yes: Other (left knee pain , warm, swollen) Edema: Yes Labs: CBC, BMP 03/11/18 08:10 03/11/18 08:10 INR, PTT INR 1.08 (0.82-1.09) 03/10/18 12:57 Problem List - Problems (1) Knee pain, left Code(s): M25.562 - PAIN IN LEFT KNEE (2) Acute on chronic renal insufficiency Code(s): N28.9 - DISORDER OF KIDNEY AND URETER, UNSPECIFIED; N18.9 - CHRONIC KIDNEY DISEASE, UNSPECIFIED (3) Anemia Code(s): D64.9 - ANEMIA, UNSPECIFIED Qualifiers: Anemia type: iron deficiency (4) CAD (coronary artery disease) Code(s): I25.10 - ATHSCL HEART DISEASE OF [place] CORONARY ARTERY W/O ANG PCTRS Qualifiers: Coronary Disease-Associated Artery/Lesion type: [place] artery [place] vs. transplanted heart: [place] heart Associated angina: without angina Qualified Code(s): I25.10 - Atherosclerotic heart disease of [place] coronary artery without angina pectoris Assessment/Plan PLAN Ortho follow up -- will need cortisone intra-articular injection for pain relief continue with meds glucose control dc plan to SNF PT eval
[2018-03-13] MEDS: INSULIN SLIDING SCALE (NOVOLOG) 1 VIAL SQ SCH ×4 (06:44→23:32)
[2018-03-13] MEDS: OFLOXACIN 0.3% OPHTHALMIC SOLUTION 5 ML BOTTLE OU SCH ×5 (06:44→23:32)
[2018-03-13] MEDS: FERROUS SO4 325 MG TABLET (FP) PO SCH ×3 (06:44→21:13)
[2018-03-13] MEDS ORDERED: INSULIN (NOVOLOG) ASPART 100 UNITS/ML 10ML VIAL ONE ×2 (07:08→11:43)
[2018-03-13] MEDS: VALSARTAN 40 MG TABLET (FP) PO SCH (10:20)
[2018-03-13] MEDS: FUROSEMIDE 20 MG TABLET (FP) PO SCH (10:20)
[2018-03-13] MEDS: GABAPENTIN 300 MG CAPSULE (FP) PO SCH (10:20)
[2018-03-13] MEDS: SPIRONOLACTONE 25 MG TABLET (FP) PO SCH (10:20)
[2018-03-13] MEDS: ASPIRIN 81 MG CHEWABLE TABLETS PO SCH (10:20)
[2018-03-13] MEDS: ALLOPURINOL 100 MG TABLET (FP) PO SCH (10:20)
[2018-03-13] MEDS: PANTOPRAZOLE 20 MG TABLET (FP) PO SCH (10:20)
[2018-03-13] MEDS: HEPARIN NA (PORCINE) 5,000 UNITS/ML 1ML VIAL SQ SCH ×2 (10:21→21:12)
[2018-03-13] MEDS: CARVEDILOL 6.25 MG TABLET (FP) PO SCH ×2 (10:21→21:13)
[2018-03-13] MEDS: PYRIDOXINE HCL (B-6) 50 MG TABLET (FP) PO SCH (10:22)
[2018-03-13] MEDS ORDERED: PT OWN MED DRAWER 7, Y5N ONE ×4 (10:24→23:22)
--- NOTE | 2018-03-13 11:29 | PN ---
Progress Note, Physician Chief Complaint: feels better no distress - Current Medication List Current Medications: Active Medications Acetaminophen (Tylenol -) 650 mg PO Q6H PRN PRN Reason: PAIN LEVEL 1-5 Allopurinol (Zyloprim -) 100 mg PO DAILY [facility] Last Admin: 03/13/18 10:20 Dose: 100 mg Aspirin (Asa -) 81 mg PO DAILY [facility] Last Admin: 03/13/18 10:20 Dose: 81 mg Carvedilol (Coreg -) 6.25 mg PO BID [facility] Last Admin: 03/13/18 10:21 Dose: 6.25 mg Docusate Sodium (Colace -) 100 mg PO BID PRN PRN Reason: CONSTIPATION Ferrous Sulfate (Feosol -) 325 mg PO TID [facility] Last Admin: 03/13/18 06:44 Dose: 325 mg Furosemide (Lasix -) 20 mg PO DAILY [facility] Last Admin: 03/13/18 10:20 Dose: 20 mg Gabapentin (Neurontin -) 300 mg PO DAILY [facility] Last Admin: 03/13/18 10:20 Dose: 300 mg Heparin Sodium (Porcine) (Heparin -) 5,000 unit SQ BID [facility] Last Admin: 03/13/18 10:21 Dose: 5,000 unit Insulin Aspart (Novolog Vial Sliding Scale -) 1 vial SQ ACHS [facility] PRN Reason: Protocol Last Admin: 03/13/18 06:44 Dose: 6 units Ofloxacin (Ocuflox 0.3% Eye Drops -) 1 drop OU Q4HWA [facility] Stop: 03/18/18 09:59 Last Admin: 03/13/18 10:25 Dose: 1 drop Pantoprazole Sodium (Protonix -) 20 mg PO DAILY [facility] Last Admin: 03/13/18 10:20 Dose: 20 mg Pyridoxine HCl (Vitamin B6 -) 50 mg PO DAILY [facility] Last Admin: 03/13/18 10:22 Dose: 50 mg Spironolactone (Aldactone -) 25 mg PO DAILY [facility] Last Admin: 03/13/18 10:20 Dose: 25 mg Tramadol HCl (Ultram -) 50 mg PO Q6H PRN PRN Reason: PAIN LEVEL 6-10 Valsartan (Diovan -) 40 mg PO DAILY [facility] Last Admin: 03/13/18 10:20 Dose: 40 mg - Objective Vital Signs: Vital Signs Temperature 97.7 F 03/13/18 08:58 Pulse Rate 77 03/13/18 08:58 Respiratory Rate 20 03/13/18 08:58 Blood Pressure 156/52 03/13/18 08:58 O2 Sat by Pulse Oximetry (%) 97 03/12/18 22:00 Constitutional: Yes: No Distress Cardiovascular: Yes: Regular Rate and Rhythm Respiratory: Yes: Diminished Gastrointestinal: Yes: Normal Bowel Sounds, Soft, Abdomen, Obese. No: Tenderness Extremities: Yes: Other (left knee effusion) Edema: Yes Labs: CBC, BMP 03/11/18 08:10 03/11/18 08:10 INR, PTT INR 1.08 (0.82-1.09) 03/10/18 12:57 Problem List - Problems (1) Knee pain, left Code(s): M25.562 - PAIN IN LEFT KNEE (2) Acute on chronic renal insufficiency Code(s): N28.9 - DISORDER OF KIDNEY AND URETER, UNSPECIFIED; N18.9 - CHRONIC KIDNEY DISEASE, UNSPECIFIED (3) Anemia Code(s): D64.9 - ANEMIA, UNSPECIFIED Qualifiers: Anemia type: iron deficiency (4) CAD (coronary artery disease) Code(s): I25.10 - ATHSCL HEART DISEASE OF [place] CORONARY ARTERY W/O ANG PCTRS Qualifiers: Coronary Disease-Associated Artery/Lesion type: [place] artery [place] vs. transplanted heart: [place] heart Associated angina: without angina Qualified Code(s): I25.10 - Atherosclerotic heart disease of [place] coronary artery without angina pectoris Assessment/Plan PLAN Ortho follow up noted -- received cortisone intra-articular injection pain is better continue with meds glucose control dc plan to SNF PT eval
--- NOTE | 2018-03-13 14:28 | PN ---
Progress Note (short form) - Note Progress Note: Ortho Pt seen and examined decr swelling, decr pain, incr rom nvi a/p left knee pain improved after injection PT wbat ok to d/c from ortho pov when medically stable d/w Dr. Joshi
--- NOTE | 2018-03-13 15:14 | PN ---
Progress Note, Physician Chief Complaint: Not in distress History of Present Illness: Patient was seen and examined. Awake and alert. Chart was reviewed Denies chest pain, SOB or palpitations - Current Medication List Current Medications: Active Medications Acetaminophen (Tylenol -) 650 mg PO Q6H PRN PRN Reason: PAIN LEVEL 1-5 Allopurinol (Zyloprim -) 100 mg PO DAILY [facility] Last Admin: 03/13/18 10:20 Dose: 100 mg Aspirin (Asa -) 81 mg PO DAILY [facility] Last Admin: 03/13/18 10:20 Dose: 81 mg Carvedilol (Coreg -) 6.25 mg PO BID [facility] Last Admin: 03/13/18 10:21 Dose: 6.25 mg Docusate Sodium (Colace -) 100 mg PO BID PRN PRN Reason: CONSTIPATION Ferrous Sulfate (Feosol -) 325 mg PO TID [facility] Last Admin: 03/13/18 13:47 Dose: 325 mg Furosemide (Lasix -) 20 mg PO DAILY [facility] Last Admin: 03/13/18 10:20 Dose: 20 mg Gabapentin (Neurontin -) 300 mg PO DAILY [facility] Last Admin: 03/13/18 10:20 Dose: 300 mg Heparin Sodium (Porcine) (Heparin -) 5,000 unit SQ BID [facility] Last Admin: 03/13/18 10:21 Dose: 5,000 unit Insulin Aspart (Novolog Vial Sliding Scale -) 1 vial SQ ACHS [facility] PRN Reason: Protocol Last Admin: 03/13/18 11:50 Dose: 8 units Ofloxacin (Ocuflox 0.3% Eye Drops -) 1 drop OU Q4HWA [facility] Stop: 03/18/18 09:59 Last Admin: 03/13/18 13:47 Dose: 1 drop Pantoprazole Sodium (Protonix -) 20 mg PO DAILY [facility] Last Admin: 03/13/18 10:20 Dose: 20 mg Pyridoxine HCl (Vitamin B6 -) 50 mg PO DAILY [facility] Last Admin: 03/13/18 10:22 Dose: 50 mg Spironolactone (Aldactone -) 25 mg PO DAILY [facility] Last Admin: 03/13/18 10:20 Dose: 25 mg Tramadol HCl (Ultram -) 50 mg PO Q6H PRN PRN Reason: PAIN LEVEL 6-10 Valsartan (Diovan -) 40 mg PO DAILY [facility] Last Admin: 03/13/18 10:20 Dose: 40 mg - Objective Vital Signs: Vital Signs Temperature 98.3 F 03/13/18 14:00 Pulse Rate 77 03/13/18 14:00 Respiratory Rate 18 03/13/18 14:00 Blood Pressure 153/78 03/13/18 14:00 O2 Sat by Pulse Oximetry (%) 97 03/12/18 22:00 Constitutional: Yes: Well Nourished HENT: Yes: Atraumatic Neck: Yes: Supple Cardiovascular: Yes: Regular Rate and Rhythm, S1, S2 Respiratory: Yes: CTA Bilaterally Gastrointestinal: Yes: Normal Bowel Sounds, Soft. No: Tenderness Edema: Yes Problem List - Problems (1) Biventricular ICD (implantable cardioverter-defibrillator) in place Code(s): Z95.810 - PRESENCE OF AUTOMATIC (IMPLANTABLE) CARDIAC DEFIBRILLATOR (2) Altered mental state Code(s): R41.82 - ALTERED MENTAL STATUS, UNSPECIFIED (3) Acute on chronic renal insufficiency Code(s): N28.9 - DISORDER OF KIDNEY AND URETER, UNSPECIFIED; N18.9 - CHRONIC KIDNEY DISEASE, UNSPECIFIED (4) Acute right-sided CHF (congestive heart failure) Code(s): I50.9 - HEART FAILURE, UNSPECIFIED (5) Anemia Code(s): D64.9 - ANEMIA, UNSPECIFIED Qualifiers: Anemia type: iron deficiency (6) CAD (coronary artery disease) Code(s): I25.10 - ATHSCL HEART DISEASE OF [place] CORONARY ARTERY W/O ANG PCTRS Qualifiers: Coronary Disease-Associated Artery/Lesion type: [place] artery [place] vs. transplanted heart: [place] heart Associated angina: without angina Qualified Code(s): I25.10 - Atherosclerotic heart disease of [place] coronary artery without angina pectoris (7) HTN (hypertension) Code(s): I10 - ESSENTIAL (PRIMARY) HYPERTENSION Qualifiers: Hypertension type: essential hypertension (8) History of percutaneous coronary intervention Code(s): Z98.89 - OTHER SPECIFIED POSTPROCEDURAL STATES * DO NOT USE * Assessment/Plan 1. S/P fall no fracture 2. CAD s/p PCI/stent, angina pectoris 3. 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 LV diastolic dysfunction with no clinical evidence of heart failure 5. HTN/HCVD 6. Type 2 diabetes mellitus 7. Hypercholesterolemia PLAN: 1. Supportive care 2. Continue Carvedilol and Valsartan 3. Lasix and Spironolactone 4. ASA 5. Statin not listed as current medication. Will check office records 6. Possible SNF eventually Further plans are to follow Nima Mcgill MD
[2018-03-13] MEDS ORDERED: ALBUTEROL SO4 0.5 % INH SOLN 2.5 MG/0.5 ML VIAL.NEB. NEB ONE ×2 (20:32→23:30)
[2018-03-13] MEDS ORDERED: FUROSEMIDE 40 MG/4 ML INJECTABLE VIAL IVPUSH ONE ×2 (20:43→22:45)
[2018-03-13] MEDS ORDERED: ALBUTEROL SO4 2.5/IPRATROPIUM 0.5 INH SOL 3 ML VIAL.NEB. NEB ONE (20:44)
--- NOTE | 2018-03-13 20:48 | HOSP ---
Subjective - Review of Symptoms Events since last encounter: 72 yo f here for evaluation of falls and AMS. Called to evaluate for oxygen desaturation on room air. Other Systems: ROS not attainable; [place] Islander speaking only Physical Examination Vital Signs: Vital Signs Temperature 98.3 F 03/13/18 20:42 Pulse Rate 92 H 03/13/18 20:42 Respiratory Rate 24 03/13/18 20:42 Blood Pressure 167/96 03/13/18 20:42 O2 Sat by Pulse Oximetry (%) 98 03/13/18 09:00 Constitutional: Yes: Calm Cardiovascular: Yes: Tachycardia, Murmur Respiratory: Yes: On Nasal O2, Poor Air Entry, Wheezes (very course breath sounds bilaterally) Edema: Yes Edema: LUE: 3+, RUE: 3+ Neurological: Yes: Alert, Oriented Labs: CBC, BMP 03/11/18 08:10 03/11/18 08:10 Hospitalist Encounter Assessment: 72 year old female with a medical history of HTN, HLD, CAD (s/p ), PPM ( 2007), CHF, IDDM, Anemia, CKD, Severe Obesity. Who presents to the ED s/p fall with AMS. Called to evaluate, patient desating on room air to mid 80s as per nurse. Nurse states she put 4L NC oxygen on patient , which brought O2 level to 97. #acute hypoxic respiratory failure: -r/o ACS patient was clenching chest; stat ECG; cardiac profile -r/o acute CHF exacerbation; bnp; echo in am; with b/l leg edema ; will give stat 20mg IV lasix; stat CXR; previous with cardiomegaloy and congestive changes -r/o PNA: CXR; afebrile, sat cbc check for leuckocytosis/shift -r/o asthma/copd exacerbation?; will give breathing treatment; +wheezing on exam ; very course breath sounds; Visit type - Emergency Visit Emergency Visit: Yes ED Registration Date: 03/10/18 Care time: The patient presented to the Emergency Department on the above date and was hospitalized for further evaluation of their emergent condition. - New Patient This patient is new to me today: Yes Date on this admission: 03/13/18 - Critical Care Critical Care patient: No
[2018-03-13 21:29] LABS: BASO % 0.7 % (0-2.0); EOS % 2.7 % (0-4.5); HEMOGLOBIN 10.7 GM/dL (10.7-15.3); LYMPH % 12.8 % (8-40); MCH 22.4 pg (25.7-33.7); MCHC 32.4 g/dl (32.0-36.0); MEAN PLT VOLUME 10.8 fl (7.5-11.1); NEUT % 77.8 % (42.8-82.8); PLATELET COUNT 210 K/MM3 (134-434); RBC 4.78 M/mm3 (3.60-5.2); RDW 15.9 % (11.6-15.6); WHITE BLOOD COUNT 12.1 K/mm3 (4.0-10.0)
[2018-03-13 21:53] LABS: ANION GAP 10 (8-16); CALCIUM 9.3 mg/dL (8.5-10.1); CHLORIDE 104 mmol/L (98-107); CO2 30 mmol/L (21-32); GLUCOSE,RANDOM 207 mg/dL (74-106); MAGNESIUM 1.8 mg/dL (1.8-2.4); POTASSIUM 4.9 mmol/L (3.5-5.1); SODIUM 144 mmol/L (136-145)
[2018-03-13 21:56] LABS: BLOOD UREA NITROGEN 36 mg/dL (7-18); N-TERMINAL BNP 4870.51 pg/ml (5-125)
[2018-03-14] MEDS: FERROUS SO4 325 MG TABLET (FP) PO SCH ×3 (06:40→21:57)
[2018-03-14] MEDS: OFLOXACIN 0.3% OPHTHALMIC SOLUTION 5 ML BOTTLE OU SCH ×5 (06:40→22:01)
[2018-03-14] MEDS: INSULIN SLIDING SCALE (NOVOLOG) 1 VIAL SQ SCH ×4 (06:40→22:00)
--- NOTE | 2018-03-14 10:41 | EKG ---
Test Reason : Blood Pressure : / mmHG Vent. Rate : 087 BPM Atrial Rate : 087 BPM P-R Int : 000 ms QRS Dur : 160 ms QT Int : 430 ms P-R-T Axes : 022 112 -31 degrees QTc Int : 517 ms Ventricular-paced rhythm ABNORMAL ECG WHEN COMPARED WITH ECG OF 10-MAR-2018 11:52, VENT. RATE HAS INCREASED BY 15 BPM Confirmed by MEENA CALDERON MD ([id number]) on 03/14/2018 10:41:40 AM Referred By: Confirmed By:MEENA CALDERON MD
[2018-03-14] MEDS ORDERED: PT OWN MED DRAWER 7, Y5N ONE (11:26)
[2018-03-14] MEDS: ASPIRIN 81 MG CHEWABLE TABLETS PO SCH (11:33)
[2018-03-14] MEDS: VALSARTAN 40 MG TABLET (FP) PO SCH (11:33)
[2018-03-14] MEDS: GABAPENTIN 300 MG CAPSULE (FP) PO SCH (11:33)
[2018-03-14] MEDS: FUROSEMIDE 20 MG TABLET (FP) PO SCH (11:34)
[2018-03-14] MEDS: HEPARIN NA (PORCINE) 5,000 UNITS/ML 1ML VIAL SQ SCH ×2 (11:34→21:58)
[2018-03-14] MEDS: SPIRONOLACTONE 25 MG TABLET (FP) PO SCH (11:34)
[2018-03-14] MEDS: ALLOPURINOL 100 MG TABLET (FP) PO SCH (11:34)
[2018-03-14] MEDS: PANTOPRAZOLE 20 MG TABLET (FP) PO SCH (11:34)
[2018-03-14] MEDS: CARVEDILOL 6.25 MG TABLET (FP) PO SCH ×2 (11:34→21:58)
[2018-03-14] MEDS: PYRIDOXINE HCL (B-6) 50 MG TABLET (FP) PO SCH (11:35)
[2018-03-14] MEDS ORDERED: FUROSEMIDE 40 MG TABLET (FP) PO SCH (11:56)
--- NOTE | 2018-03-14 11:56 | PN ---
Progress Note (short form) - Note Progress Note: Pt seen/ examined . Events noted Feels better eating lunch. denies cp. breathing better afebrile. Left knee much better Vital Signs Temp 97.9 F 03/14/18 09:00 Pulse 73 03/14/18 09:00 Resp 20 03/14/18 09:00 BP 155/94 03/14/18 09:00 Pulse Ox 93 L 03/13/18 21:00 Intake & Output 03/13/18 03/13/18 03/14/18 11:59 23:59 11:59 Intake Total 1100 Balance 1100 Weight 259 lb 2 oz 262 lb Intake: Oral 1100 Other: Voiding Method Incontinent Toilet # Unmeasured Voids Void 2 3 1 Bowel Movement No Yes # Bowel Movements 1 Weight Measurement Method Built in Bedscale Built in Bedscale Active Medications Acetaminophen (Tylenol -) 650 mg PO Q6H PRN PRN Reason: PAIN LEVEL 1-5 Allopurinol (Zyloprim -) 100 mg PO DAILY [facility] Last Admin: 03/14/18 11:34 Dose: 100 mg Aspirin (Asa -) 81 mg PO DAILY [facility] Last Admin: 03/14/18 11:33 Dose: 81 mg Carvedilol (Coreg -) 6.25 mg PO BID [facility] Last Admin: 03/14/18 11:34 Dose: 6.25 mg Docusate Sodium (Colace -) 100 mg PO BID PRN PRN Reason: CONSTIPATION Ferrous Sulfate (Feosol -) 325 mg PO TID [facility] Last Admin: 03/14/18 06:40 Dose: 325 mg Gabapentin (Neurontin -) 300 mg PO DAILY [facility] Last Admin: 03/14/18 11:33 Dose: 300 mg Heparin Sodium (Porcine) (Heparin -) 5,000 unit SQ BID [facility] Last Admin: 03/14/18 11:34 Dose: 5,000 unit Insulin Aspart (Novolog Vial Sliding Scale -) 1 vial SQ ACHS [facility] PRN Reason: Protocol Last Admin: 03/14/18 11:51 Dose: 4 units Ofloxacin (Ocuflox 0.3% Eye Drops -) 1 drop OU Q4HWA [facility] Stop: 03/18/18 09:59 Last Admin: 03/14/18 11:35 Dose: 1 drop Pantoprazole Sodium (Protonix -) 20 mg PO DAILY [facility] Last Admin: 03/14/18 11:34 Dose: 20 mg Pyridoxine HCl (Vitamin B6 -) 50 mg PO DAILY [facility] Last Admin: 03/14/18 11:35 Dose: 50 mg Spironolactone (Aldactone -) 25 mg PO DAILY [facility] Last Admin: 03/14/18 11:34 Dose: 25 mg Tramadol HCl (Ultram -) 50 mg PO Q6H PRN PRN Reason: PAIN LEVEL 6-10 Valsartan (Diovan -) 40 mg PO DAILY [facility] Last Admin: 03/14/18 11:33 Dose: 40 mg CBC, BMP 03/13/18 21:04 03/13/18 21:04 Physical Exam. Constitutional: Yes: No Distress. Cardiovascular: Yes: Regular Rate and Rhythm Respiratory: Yes: Diminished Gastrointestinal: Yes: Normal Bowel Sounds, Soft, Abdomen, Obese. No: Tenderness Extremities: Yes: Other (left knee effusion) Edema: Yes Problem List - Problems (1) Knee pain, left Code(s): M25.562 - PAIN IN LEFT KNEE (2) Acute on chronic renal insufficiency Code(s): N28.9 - DISORDER OF KIDNEY AND URETER, UNSPECIFIED; N18.9 - CHRONIC KIDNEY DISEASE, UNSPECIFIED (3) Anemia Code(s): D64.9 - ANEMIA, UNSPECIFIED Qualifiers: Anemia type: iron deficiency (4) CAD (coronary artery disease) Code(s): I25.10 - ATHSCL HEART DISEASE OF [place] CORONARY ARTERY W/O ANG PCTRS Qualifiers: Coronary Disease-Associated Artery/Lesion type: [place] artery [place] vs. transplanted heart: [place] heart Associated angina: without angina Qualified Code(s): I25.10 - Atherosclerotic heart disease of [place] coronary artery without angina pectoris Assessment/Plan Clinically stable improved continue present care increase lasix if stable - anticipate d/c tomorrow Will follow Problem List - Problems (1) Knee pain, left Code(s): M25.562 - PAIN IN LEFT KNEE (2) Fall Code(s): W19.XXXA - UNSPECIFIED FALL, INITIAL ENCOUNTER Qualifiers: Encounter type: subsequent encounter Qualified Code(s): W19.XXXD - Unspecified fall, subsequent encounter (3) CAD (coronary artery disease) Code(s): I25.10 - ATHSCL HEART DISEASE OF [place] CORONARY ARTERY W/O ANG PCTRS Qualifiers: Coronary Disease-Associated Artery/Lesion type: [place] artery [place] vs. transplanted heart: [place] heart Associated angina: without angina Qualified Code(s): I25.10 - Atherosclerotic heart disease of [place] coronary artery without angina pectoris (4) HTN (hypertension) Code(s): I10 - ESSENTIAL (PRIMARY) HYPERTENSION Qualifiers: Hypertension type: essential hypertension Qualified Code(s): I10 - Essential (primary) hypertension (5) IDDM (insulin dependent diabetes mellitus) Code(s): E11.9 - TYPE 2 DIABETES MELLITUS WITHOUT COMPLICATIONS; Z79.4 - MCFP (CURRENT) USE OF INSULIN (6) Renal insufficiency Code(s): N28.9 - DISORDER OF KIDNEY AND URETER, UNSPECIFIED
--- NOTE | 2018-03-14 12:00 | PN ---
Progress Note, Physician History of Present Illness: No further falls, eating lunch comfortably. - Current Medication List Current Medications: Active Medications Acetaminophen (Tylenol -) 650 mg PO Q6H PRN PRN Reason: PAIN LEVEL 1-5 Allopurinol (Zyloprim -) 100 mg PO DAILY [facility] Last Admin: 03/14/18 11:34 Dose: 100 mg Aspirin (Asa -) 81 mg PO DAILY [facility] Last Admin: 03/14/18 11:33 Dose: 81 mg Carvedilol (Coreg -) 6.25 mg PO BID [facility] Last Admin: 03/14/18 11:34 Dose: 6.25 mg Docusate Sodium (Colace -) 100 mg PO BID PRN PRN Reason: CONSTIPATION Ferrous Sulfate (Feosol -) 325 mg PO TID [facility] Last Admin: 03/14/18 06:40 Dose: 325 mg Furosemide (Lasix -) 40 mg PO DAILY [facility] Gabapentin (Neurontin -) 300 mg PO DAILY [facility] Last Admin: 03/14/18 11:33 Dose: 300 mg Heparin Sodium (Porcine) (Heparin -) 5,000 unit SQ BID [facility] Last Admin: 03/14/18 11:34 Dose: 5,000 unit Insulin Aspart (Novolog Vial Sliding Scale -) 1 vial SQ ACHS [facility] PRN Reason: Protocol Last Admin: 03/14/18 11:51 Dose: 4 units Ofloxacin (Ocuflox 0.3% Eye Drops -) 1 drop OU Q4HWA [facility] Stop: 03/18/18 09:59 Last Admin: 03/14/18 11:35 Dose: 1 drop Pantoprazole Sodium (Protonix -) 20 mg PO DAILY [facility] Last Admin: 03/14/18 11:34 Dose: 20 mg Pyridoxine HCl (Vitamin B6 -) 50 mg PO DAILY [facility] Last Admin: 03/14/18 11:35 Dose: 50 mg Spironolactone (Aldactone -) 25 mg PO DAILY [facility] Last Admin: 03/14/18 11:34 Dose: 25 mg Tramadol HCl (Ultram -) 50 mg PO Q6H PRN PRN Reason: PAIN LEVEL 6-10 Valsartan (Diovan -) 40 mg PO DAILY [facility] Last Admin: 03/14/18 11:33 Dose: 40 mg - Objective Vital Signs: Vital Signs Temperature 97.9 F 03/14/18 09:00 Pulse Rate 73 03/14/18 09:00 Respiratory Rate 20 03/14/18 09:00 Blood Pressure 155/94 03/14/18 09:00 O2 Sat by Pulse Oximetry (%) 93 L 03/13/18 21:00 Constitutional: Yes: No Distress, Calm Neck: Yes: Supple Cardiovascular: Yes: Regular Rate and Rhythm Respiratory: Yes: Regular, Diminished, On Nasal O2 Gastrointestinal: Yes: Normal Bowel Sounds, Soft, Abdomen, Obese Edema: No Labs: CBC, BMP 03/13/18 21:04 03/13/18 21:04 INR, PTT INR 1.08 (0.82-1.09) 03/10/18 12:57 - ....Imaging EKG: Report Reviewed (V-paced @ 87) Problem List - Problems (1) Biventricular ICD (implantable cardioverter-defibrillator) in place Code(s): Z95.810 - PRESENCE OF AUTOMATIC (IMPLANTABLE) CARDIAC DEFIBRILLATOR (2) Fall Code(s): W19.XXXA - UNSPECIFIED FALL, INITIAL ENCOUNTER Qualifiers: Encounter type: subsequent encounter Qualified Code(s): W19.XXXD - Unspecified fall, subsequent encounter (3) CAD (coronary artery disease) Code(s): I25.10 - ATHSCL HEART DISEASE OF [place] CORONARY ARTERY W/O ANG PCTRS Qualifiers: Coronary Disease-Associated Artery/Lesion type: [place] artery [place] vs. transplanted heart: [place] heart Associated angina: without angina Qualified Code(s): I25.10 - Atherosclerotic heart disease of [place] coronary artery without angina pectoris (4) HTN (hypertension) Code(s): I10 - ESSENTIAL (PRIMARY) HYPERTENSION Qualifiers: Hypertension type: essential hypertension Qualified Code(s): I10 - Essential (primary) hypertension (5) History of percutaneous coronary intervention Code(s): Z98.89 - OTHER SPECIFIED POSTPROCEDURAL STATES * DO NOT USE * (6) Hypercholesterolemia Code(s): E78.0 - PURE HYPERCHOLESTEROLEMIA * DO NOT USE * (7) IDDM (insulin dependent diabetes mellitus) Code(s): E11.9 - TYPE 2 DIABETES MELLITUS WITHOUT COMPLICATIONS; Z79.4 - [employer] (CURRENT) USE OF INSULIN (8) Gait instability Code(s): R26.81 - UNSTEADINESS ON FEET Assessment/Plan 1. S/P fall with left knee contusion s/p steroid/anesthetic injection 2. CAD s/p PCI/stent, angina pectoris 3. 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 LV diastolic dysfunction with no clinical evidence of heart failure 5. HTN/HCVD 6. Type 2 diabetes mellitus 7. Hypercholesterolemia PLAN: 1. PT and gait training 2. Continue Carvedilol 6.25 bid and Valsartan 40 qd 3. Lasix 40 qd and Spironolactone 25 qd, ASA 81 qd 4. Statin not listed as current medication. Will check office records 5. Possible SNF eventually 6. DVT and GI Prophylaxis
[2018-03-14] MEDS: traMADol HCL 50 MG TABLET PO PRN (21:57)
[2018-03-14] MEDS: ATORVASTATIN CA 20 MG TABLET (FP) PO SCH (21:58)
[2018-03-14] MEDS ORDERED: INSULIN (NOVOLOG) ASPART 100 UNITS/ML 10ML VIAL ONE (22:00)
[2018-03-14 23:30] VITALS: BMI 44.9
[2018-03-15] MEDS ORDERED: INSULIN (NOVOLOG) ASPART 100 UNITS/ML 10ML VIAL ONE (06:25)
[2018-03-15] MEDS: traMADol HCL 50 MG TABLET PO PRN (06:26)
[2018-03-15] MEDS: FERROUS SO4 325 MG TABLET (FP) PO SCH ×3 (06:27→22:15)
[2018-03-15] MEDS: OFLOXACIN 0.3% OPHTHALMIC SOLUTION 5 ML BOTTLE OU SCH ×5 (06:27→22:25)
[2018-03-15] MEDS: INSULIN SLIDING SCALE (NOVOLOG) 1 VIAL SQ SCH ×4 (06:27→22:22)
[2018-03-15 07:54] LABS: BASO % 0.6 % (0-2.0); EOS % 3.4 % (0-4.5); HEMOGLOBIN 8.8 GM/dL (10.7-15.3); LYMPH % 15.4 % (8-40); MCH 22.5 pg (25.7-33.7); MCHC 32.5 g/dl (32.0-36.0); MEAN CELL VOLUME 69.4 fl (80-96); MEAN PLT VOLUME 10.3 fl (7.5-11.1); MONO % 8.4 % (3.8-10.2); NEUT % 72.2 % (42.8-82.8); PLATELET COUNT 185 K/MM3 (134-434); RBC 3.88 M/mm3 (3.60-5.2); RDW 15.9 % (11.6-15.6)
[2018-03-15 08:06] LABS: CHLORIDE 105 mmol/L (98-107); POTASSIUM 4.7 mmol/L (3.5-5.1); SODIUM 142 mmol/L (136-145)
[2018-03-15 08:30] LABS: ALK PHOS 134 U/L (45-117); ANION GAP 5 (8-16); BILIRUBIN,TOTAL 0.5 mg/dL (0.2-1.0); BLOOD UREA NITROGEN 43 mg/dL (7-18); CALCIUM 8.5 mg/dL (8.5-10.1); CO2 32 mmol/L (21-32); CREATININE 2.1 mg/dL (0.55-1.02); GLUCOSE,RANDOM 233 mg/dL (74-106); SGOT/AST 14 U/L (15-37); SGPT/ALT 17 U/L (12-78); TOT PROT 6.8 g/dl (6.4-8.2)
[2018-03-15 09:26] VITALS: TEMP 97.8
[2018-03-15] MEDS: GABAPENTIN 300 MG CAPSULE (FP) PO SCH (09:36)
[2018-03-15] MEDS: SPIRONOLACTONE 25 MG TABLET (FP) PO SCH (09:36)
[2018-03-15] MEDS: ASPIRIN 81 MG CHEWABLE TABLETS PO SCH (09:36)
[2018-03-15] MEDS: VALSARTAN 40 MG TABLET (FP) PO SCH (09:37)
[2018-03-15] MEDS: PYRIDOXINE HCL (B-6) 50 MG TABLET (FP) PO SCH (09:37)
[2018-03-15] MEDS: CARVEDILOL 6.25 MG TABLET (FP) PO SCH ×2 (09:37→22:15)
[2018-03-15] MEDS: ALLOPURINOL 100 MG TABLET (FP) PO SCH (09:37)
[2018-03-15] MEDS: PANTOPRAZOLE 20 MG TABLET (FP) PO SCH (09:37)
[2018-03-15] MEDS: HEPARIN NA (PORCINE) 5,000 UNITS/ML 1ML VIAL SQ SCH ×2 (09:37→22:15)
[2018-03-15] MEDS ORDERED: PT OWN MED DRAWER 7, Y5N ONE ×2 (09:38→13:49)
--- NOTE | 2018-03-15 12:23 | PN ---
Progress Note, S[employer]OL SPEECH [employer]ER[employer]IST - Note Progress Note: Selected Entries 03/14/18 03/14/18 03/14/18 00:30 07:02 09:00 Lunch Supper Temperature 97.5 F L 98.5 F 97.9 F 03/14/18 03/14/18 03/14/18 14:04 20:10 22:25 Lunch 100% Supper 100% Temperature 98.7 F 98.3 F 03/15/18 03/15/18 06:36 09:00 Lunch Supper Temperature 98.1 F 97.8 F On reg diet/thin liquids.tOLERATING DIET PER RN.
--- NOTE | 2018-03-15 12:36 | DS ---
Physical Examination Vital Signs: Vital Signs Temperature 97.8 F 03/15/18 09:00 Pulse Rate 72 03/15/18 09:00 Respiratory Rate 20 03/15/18 09:00 Blood Pressure 122/61 03/15/18 09:00 O2 Sat by Pulse Oximetry (%) 97 03/14/18 21:00 Constitutional: Yes: No Distress Cardiovascular: Yes: Regular Rate and Rhythm Respiratory: Yes: Diminished Gastrointestinal: Yes: Normal Bowel Sounds, Soft, Abdomen, Obese. No: Tenderness Edema: Yes Labs: CBC, BMP 03/15/18 07:05 03/15/18 07:05 Discharge Summary Reason For Visit: FALL Current Active Problems Acute metabolic encephalopathy (Acute) Altered mental state (Acute) Biventricular ICD (implantable cardioverter-defibrillator) in place (Acute) Conjunctivitis of both eyes (Acute) DVT prophylaxis (Acute) Fall (Acute) Gait instability (Acute) Knee pain, left (Acute) Hospital Course: admitted for fall and c/o left knee pain Seen by Orth- intra-articular steroid injection administered-- pt felt better Ideally she should be discharged to SNF-- but pt is refusing-- she will be dc home with home PT and VNS Condition: Improved - Instructions Referrals: Margarita Ochoa MD [Staff Physician] - Disposition: HOME - Home Medications Comprehensive Discharge Medication List: Ambulatory Orders Allopurinol [Zyloprim -] 100 mg PO DAILY 02/24/16 Aspirin [ASA -] 81 mg PO DAILY 02/24/16 Ferrous Sulfate 324 mg PO TID 02/24/16 Gabapentin 300 mg PO DAILY 02/24/16 Omeprazole 20 mg PO DAILY 10/02/16 Pyridoxine HCl (B-6) [Vitamin B6 -] 50 mg PO DAILY 10/02/16 Insulin Sliding Scale [Novolog Vial Sliding Scale -] 1 vial SQ TIDAC units 08/24 traMADol HCL [Ultram -] 50 mg PO Q6H PRN #30 tablet MDD 4 12/18/16 Carvedilol [Coreg -] 6.25 mg PO BID #60 tablet 02/24/17 Docusate Sodium [Colace -] 100 mg PO BID PRN #60 tab 02/24/17 Furosemide [Lasix -] 20 mg PO DAILY #30 tablet 02/24/17 Insulin (Levemir) [Levemir Vial] 15 units SQ HS #100 ml 02/24/17 Spironolactone [Aldactone -] 25 mg PO DAILY #30 tablet 02/24/17 Valsartan [Diovan] 40 mg PO DAILY #30 tablet 02/24/17
--- NOTE | 2018-03-15 15:34 | PN ---
Progress Note (short form) - Note Progress Note: Pt seen and examined. She is doing better, doing well. She states her left knee pain is much improved. She can ambulate, FWB. L knee looks better, min swelling. LLE with good ROM at the knee, ankle, foot, toes Imp Overall doing well, doing better. Rec P.T., for ambulation, WBAT
[2018-03-15 21:21] VITALS: BP 120/70; PULSE 60
[2018-03-15] MEDS: ATORVASTATIN CA 20 MG TABLET (FP) PO SCH (22:15)
== END 2018-03-15 22:43 | disposition home or self-care (01) | DRG 604 ==
LOC: JER 11:12 → JERBED 19:05 → J6S 03-11 01:53
PROVIDERS: ADMIT Internal Medicine; ATTEND Internal Medicine
DX: S80.02XA Contusion of left knee, initial encounter (principal); G93.41 Metabolic encephalopathy; J96.01 Acute respiratory failure with hypoxia; Z68.41 Body mass index [BMI] 40.0-44.9, adult; I13.0 Hypertensive heart and chronic kidney disease with heart failure and stage 1 through stage 4 chronic kidney disease, or unspecified chronic kidney disease; E86.0 Dehydration; E11.9 Type 2 diabetes mellitus without complications; M17.12 Unilateral primary osteoarthritis, left knee; Z98.61 Coronary angioplasty status; H10.33 Unspecified acute conjunctivitis, bilateral; I50.9 Heart failure, unspecified; W19.XXXA Unspecified fall, initial encounter; Y93.9 Activity, unspecified; Y92.89 Other specified places as the place of occurrence of the external cause; Y99.9 Unspecified external cause status; D50.9 Iron deficiency anemia, unspecified; E78.5 Hyperlipidemia, unspecified; E66.01 Morbid (severe) obesity due to excess calories; R26.89 Other abnormalities of gait and mobility; I25.119 Atherosclerotic heart disease of native coronary artery with unspecified angina pectoris; Z95.0 Presence of cardiac pacemaker; Z79.4 Long term (current) use of insulin; K21.9 Gastro-esophageal reflux disease without esophagitis
CPT/HCPCS: 36415; 70450-TC; 71045-TC-FY; 73523-TC-FY; 73560-TC-LT-FY; 73560-TC-RT-FY; 80048; 80053; 81003; 82550; 82553; 82962; 83605; 83735; 83880; 84100; 84484; 85025; 85610; 85730; 86850; 86900; 86901; 87086; 93005; 93010; 93306-TC; 93970-TC; 94640; 97116-GP; 97161-GP; 99284-25; G0463-25; J1644; J7620

== ENCOUNTER 2018-04-14 10:05 | Emergency (ER) | payer OTHER ==
--- NOTE | 2018-04-14 10:22 | PDOC ---
History of Present Illness - General Stated Complaint: LEG PAIN Time Seen by Provider: 04/14/18 10:17 - History of Present Illness Initial Comments: 04/14/18 12:35 The patient is a 72 year old female with a history of HTN, HLD, DM, CAD, Venous Insufficiency who presents for evaluation of right lower extremity pain. The patient reports a 2 day history of worsening pain to her right lower extremity prompting her presentation to the ED for further evaluation. She denies any worsening swelling in her lower extremities and notes that her lower extremity edema is chronic in nature. The patient otherwise denies fevers, chills, SOB, chest pain, nausea, vomiting, abdominal pain, or changes with urination or bowel movements. Past History - Past Medical History Allergies/Adverse Reactions: Allergies Allergy/AdvReac Type Severity Reaction Status Date / Time No Known Allergies Allergy Verified 03/10/18 11:24 Home Medications: Ambulatory Orders Allopurinol [Zyloprim -] 100 mg PO DAILY 02/24/16 Aspirin [ASA -] 81 mg PO DAILY 02/24/16 Ferrous Sulfate 324 mg PO TID 02/24/16 Gabapentin 300 mg PO DAILY 02/24/16 Omeprazole 20 mg PO DAILY 10/02/16 Pyridoxine HCl (B-6) [Vitamin B6 -] 50 mg PO DAILY 10/02/16 Insulin Sliding Scale [Novolog Vial Sliding Scale -] 1 vial SQ TIDAC units 08/24 traMADol HCL [Ultram -] 50 mg PO Q6H PRN #30 tablet MDD 4 12/18/16 Carvedilol [Coreg -] 6.25 mg PO BID #60 tablet 02/24/17 Docusate Sodium [Colace -] 100 mg PO BID PRN #60 tab 02/24/17 Furosemide [Lasix -] 20 mg PO DAILY #30 tablet 02/24/17 Insulin (Levemir) [Levemir Vial] 15 units SQ HS #100 ml 02/24/17 Spironolactone [Aldactone -] 25 mg PO DAILY #30 tablet 02/24/17 Valsartan [Diovan] 40 mg PO DAILY #30 tablet 02/24/17 Cephalexin Monohydrate [Keflex -] 500 mg PO Q6H #20 capsule 04/14/18 Anemia: Yes (ISH) Asthma: No Cancer: No Cardiac Disorders: Yes (HCVD, chest pain syndrome) CVA: No COPD: No CHF: Yes Dementia: No Diabetes: Yes (TYPE II) GI Disorders: No Disorders: Yes (Renal Insuffiency) HTN: Yes Hypercholesterolemia: Yes Liver Disease: No Psychiatric Problems: Yes (anxiety) Seizures: No Thyroid Disease: No - Surgical History Abdominal Surgery: No Appendectomy: No Cardiac Surgery: Yes (STENTS/PPM 2007) Cholecystectomy: No Lung Surgery: No Neurologic Surgery: No Orthopedic Surgery: No - Immunization History Td Vaccination: Yes TDAP Vaccination: Yes Immunization Up to Date: Yes - Suicide/Smoking/Psychosocial Hx Smoking Status: No Smoking History: Never smoked Have you smoked in the past 12 months: No Number of Cigarettes Smoked Daily: 0 Hx Alcohol Use: No Drug/Substance Use Hx: No Substance Use Type: None Hx Substance Use Treatment: No Review of Systems - Review of Systems Comments:: 04/14/18 12:38 Constitutional: No fevers, chills, fatigue, malaise HEENT: No Rhinorrhea, nasal congestion, visual changes Cardiovascular: No chest pain, syncope, palpitations, lightheadedness Respiratory: No Cough, SOB, Hemoptysis, Gastrointestinal: No Abdominal pain, Nausea, Vomiting, Constipation, Diarrhea, Melena Genitourinary: No Dysuria, Frequency, Urgency, Hesitancy, Hematuria, Flank pain Musculoskeletal: Right lower extremity pain. No Myalgia, arthralgia Skin: No rashes, itching, bruising, pallor Neurologic: No Headache, Dizziness, Numbness, Weakness, or Tingling Psychiatric: No Hallucinations. No SI or HI *Physical Exam - Physical Exam Comments: 04/14/18 12:38 General Appearance: Nourished. No Apparent Distress HEENT: No Pharyngeal Erythema, Tonsillar Exudate, Tonsillar Erythema Neck: No Cervical Lymphadenopathy Respiratory/Chest: Lungs Clear, Normal Breath Sounds. No Crackles, Rales, Rhonchi, Wheezing Cardiovascular: Regular Rhythm, Regular Rate. No Murmur, Gallops, Rubs Gastrointestinal/Abdominal: Normal Bowel Sounds, Soft. No Guarding, Rebound, Tenderness Musculoskeletal: No CVA Tenderness Extremity: Bilaterally 4+ pitting edema to the lower extremities. 8cm x 4cm area of erythema with warmth noted to the right lower extremity. Normal Capillary Refill Integumentary: Normal Color, Dry, Warm Neurologic: Fully Oriented, Alert, Normal Mood/Affect, Normal Response, ED Treatment Course - LABORATORY CBC & Chemistry Diagram: 04/14/18 11:10 04/14/18 11:10 Medical Decision Making - Medical Decision Making 04/14/18 12:39 The patient is a 72 year old female with a history of HTN, HLD, DM, CAD, Venous Insufficiency who presents for evaluation of right lower extremity pain. Given the patient's physical exam, we will obtain a cbc, cmp to evaluate further. Given the patient's physical exam, her presentation is consistent with a cellulitis. We will treat here in the ED with clindamycin and continue to monitor and reassess. 04/14/18 12:43 CBC, cmp are unremarkable and unchanged from baseline. We discussed the case with Dr. Ochoa who is comfortable with outpatient management. We are comfortable with outpatient management of the patient's cellulitis as well given the patient's clinical exam. We are comfortable with discharge with primary care provider follow up on keflex. We discussed the results, plan, and return precautions with the patient who voiced understanding and is agreeable with the plan. *DC/Admit/Observation/Transfer Diagnosis at time of Disposition: Cellulitis Qualifiers: Site of cellulitis: extremity Site of cellulitis of extremity: lower extremity Laterality: right Qualified Code(s): L03.115 - Cellulitis of right lower limb - Discharge Dispostion Disposition: HOME Condition at time of disposition: Stable Decision to Admit order: No - Prescriptions Prescriptions: Cephalexin Monohydrate [Keflex -] 500 mg PO Q6H #20 capsule - Referrals Referrals: Margarita Ochoa MD [Primary Care Provider] - - Patient Instructions Printed Discharge Instructions: DI for Cellulitis -- Adult Additional Instructions: Please return to the ER if you experience concerning or worsening symptoms including worsening pain, fevers, or vomiting. Your lab results were unremarkable here in the ED. We have sent a prescription to your pharmacy for antibiotics that you should take 4 times a day for the next 5 days. Please make sure you call to schedule a follow up appointment with your primary care provider within 2-3 days to discuss your ER visit and further management of your symptoms. - Post Discharge Activity
--- NOTE | 2018-04-14 10:26 | PDOC ---
Attending Attestation - Resident Resident Name: Librado Ferrera - ED Attending Attestation I have performed the following: I have examined & evaluated the patient, The case was reviewed & discussed with the resident, I agree w/resident's findings & plan, Exceptions are as noted - HPI HPI: 04/14/18 10:50 The patient is a 72 year old female with a significant past medical history of hypertension, hyperlipidemia, diabetes, coronary artery disease, peripheral vascular disease, renal insufficiency, and venous insufficiency who presents to the emergency department for evaluation of discoloration of right leg. The patient reports moderate lower extremity pain. She reports chronic bilateral lower extremity swelling. She reports feeling pain on her right leg and observing a dark red color which prompted her to visit the emergency department. The patient was recently discharged on 03/15/18 for a fall. Of note , the patient is on lasix. The patient denies chest pain, shortness of breath, headache, and dizziness. Denies fevers, chills, nausea, vomiting, diarrhea, and constipation. Allergies: NKDA Past surgical history: Social history: No reported cigarette, alcohol, or drug use. PCP: Dr. Iesha Combs - Physicial Exam PE: GENERAL: Awake, alert, and fully oriented, in no acute distress HEAD: No signs of trauma EYES: PERRLA, EOMI, sclera anicteric, conjunctiva clear ENT: Auricles normal inspection, hearing grossly normal, nares patent. NECK: Normal ROM, supple. LUNGS: Breath sounds equal, clear to auscultation bilaterally. No wheezes, and no crackles HEART: Regular rate and rhythm, normal S1 and S2, no murmurs, rubs or gallops ABDOMEN: Soft, nontender. EXTREMITIES: (+)Lower extremities grossly edematous bilaterally. (+)Right leg, 8x4cm area of erythema and warmth. Normal range of motion. NEUROLOGICAL: Cranial nerves II through XII grossly intact. Normal speech. SKIN: Warm, Dry, normal turgor, no rashes or lesions noted. <Shilpa Garces - Last Filed: 04/14/18 10:50> - Medical Decision Making 04/14/18 13:09 Pt presents to the ED complaining of redness and pain to the front of her right calf. Denies systemic signs of infection. There is an area of erythema to the calf with warmth and mild tenderness. Labs are consistent with her baseline. Will treat with a single dose of clindamycin and discharge home with keflex and follow up with PMD in two days. <Justyna Mesa - Last Filed: 04/14/18 13:12> Attestations - Attestations Documentation prepared by Shilpa Garces, acting as medical records tech for Justyna Mesa MD. <Shilpa Garces - Last Filed: 04/14/18 10:50>
[2018-04-14 11:22] LABS: BASO % 0.6 % (0-2.0); EOS % 1.2 % (0-4.5); HEMATOCRIT 35.1 % (32.4-45.2); HEMOGLOBIN 11.1 GM/dL (10.7-15.3); LYMPH % 14.5 % (8-40); MCH 21.8 pg (25.7-33.7); MCHC 31.5 g/dl (32.0-36.0); MEAN CELL VOLUME 69.4 fl (80-96); MEAN PLT VOLUME 10.7 fl (7.5-11.1); MONO % 6.8 % (3.8-10.2); NEUT % 76.9 % (42.8-82.8); PLATELET COUNT 164 K/MM3 (134-434); RBC 5.06 M/mm3 (3.60-5.2); RDW 16.5 % (11.6-15.6)
[2018-04-14 11:23] VITALS: BMI 47.5
[2018-04-14 11:40] LABS: ALBUMIN 3.4 g/dl (3.4-5.0); ALK PHOS 180 U/L (45-117); ANION GAP 8 (8-16); BILIRUBIN,TOTAL 0.3 mg/dL (0.2-1.0); BLOOD UREA NITROGEN 46 mg/dL (7-18); CALCIUM 9.3 mg/dL (8.5-10.1); CHLORIDE 108 mmol/L (98-107); CO2 26 mmol/L (21-32); CREATININE 2.2 mg/dL (0.55-1.02); GLUCOSE,RANDOM 281 mg/dL (74-106); POTASSIUM 4.8 mmol/L (3.5-5.1); SGOT/AST 20 U/L (15-37); SGPT/ALT 18 U/L (12-78); SODIUM 142 mmol/L (136-145); TOT PROT 7.5 g/dl (6.4-8.2)
[2018-04-14 12:13] LABS: ANISOCYTOSIS 1+
[2018-04-14] MEDS ORDERED: CLINDAMYCIN 600MG PREMIX IVPB 600 MG/50 ML BAG IVPB ONE ×2 (12:30→12:34)
[2018-04-14 16:36] VITALS: BP 142/89; PULSE 79; TEMP 97.8
--- NOTE | 2018-04-16 14:43 | EKG ---
Test Reason : Blood Pressure : / mmHG Vent. Rate : 092 BPM Atrial Rate : 092 BPM P-R Int : 000 ms QRS Dur : 164 ms QT Int : 424 ms P-R-T Axes : 025 125 057 degrees QTc Int : 524 ms NSR with AV sequential ventricular pacing Ventricular-paced rhythm ABNORMAL ECG WHEN COMPARED WITH ECG OF 13-MAR-2018 21:46, VENT. RATE HAS INCREASED BY 5 BPM Confirmed by MD Pete, Librado ([id number]) on 04/16/2018 2:42:35 PM Referred By: Confirmed By:Librado Freeman MD
== END 2018-04-14 16:36 | disposition home or self-care (01) ==
LOC: JER 10:05
DX: L03.115 Cellulitis of right lower limb (principal); I11.9 Hypertensive heart disease without heart failure; Z95.5 Presence of coronary angioplasty implant and graft; E78.00 Pure hypercholesterolemia, unspecified; E11.9 Type 2 diabetes mellitus without complications; Z79.4 Long term (current) use of insulin; Z95.0 Presence of cardiac pacemaker
CPT/HCPCS: 36415; 80053; 85025; 93005; 93010; 99281-25

== ENCOUNTER 2018-05-24 11:11 | Inpatient (IN) | payer OTHER ==
[2018-05-24 12:04] LABS: EOS % 2.1 % (0-4.5); HEMATOCRIT 31.4 % (32.4-45.2); HEMOGLOBIN 9.6 GM/dL (10.7-15.3); LYMPH % 14.2 % (8-40); MCH 21.2 pg (25.7-33.7); MCHC 30.6 g/dl (32.0-36.0); MEAN CELL VOLUME 69.3 fl (80-96); MEAN PLT VOLUME 11.6 fl (7.5-11.1); MONO % 6.3 % (3.8-10.2); NEUT % 76.4 % (42.8-82.8); PLATELET COUNT 230 K/MM3 (134-434); RBC 4.54 M/mm3 (3.60-5.2); RDW 15.5 % (11.6-15.6)
[2018-05-24 12:29] LABS: ALK PHOS 118 U/L (45-117); ANION GAP 8 (8-16); BILIRUBIN,TOTAL 0.4 mg/dL (0.2-1.0); BLOOD UREA NITROGEN 24 mg/dL (7-18); CALCIUM 9.5 mg/dL (8.5-10.1); CHLORIDE 110 mmol/L (98-107); CO2 27 mmol/L (21-32); CREATININE 1.9 mg/dL (0.55-1.02); GLUCOSE,RANDOM 175 mg/dL (74-106); SGPT/ALT 17 U/L (12-78); SODIUM 145 mmol/L (136-145); TOT PROT 6.8 g/dl (6.4-8.2)
[2018-05-24 12:32] LABS: PLATELET ESTIMATE NORMAL
[2018-05-24 12:34] LABS: POTASSIUM 4.7 mmol/L (3.5-5.1); SGOT/AST 35 U/L (15-37)
--- NOTE | 2018-05-24 12:46 | PDOC ---
Attending Attestation - Resident Resident Name: Justo James - ED Attending Attestation I have performed the following: I have examined & evaluated the patient, The case was reviewed & discussed with the resident, I agree w/resident's findings & plan, Exceptions are as noted - HPI HPI: 05/24/18 12:47 73 F with h/o HTN, HLD, DM, CAD, Venous Insufficiency presenting to ED with SOB and RLE pain. Pt states that she has chronic RLE pain that has been progressively worsening over the past week. Today, she notes that it got to the point that she was unable to ambulate. The pain is localized to the R knee. She denies any new swelling or redness. Pt also reports feeling SOB. Per home companion, pt was found to be breathing heavily 4 days ago and since then has had significantly decreased exercise tolerance, becoming winded after only a few steps. Pt denies F/C. Denies chest pain. Denies cough. - Physicial Exam PE: 05/24/18 12:51 "GENERAL: + Somnolent, in no acute distress. HEAD: No signs of trauma EYES: PERRLA, EOMI, sclera anicteric, conjunctiva clear ENT: Auricles normal inspection, hearing grossly normal, nares patent, oropharynx clear without exudates. Moist mucosa NECK: Nontender, no stepoffs, Normal ROM, supple, no lymphadenopathy, JVD, or masses LUNGS: Breath sounds equal, clear to auscultation bilaterally. No wheezes, and no crackles HEART: Regular rate and rhythm, normal S1 and S2, no murmurs, rubs or gallops ABDOMEN: Soft, nontender, normoactive bowel sounds. No guarding, no rebound. No masses EXTREMITIES: + BLE edema with erythema to R alcantara NEUROLOGICAL: Cranial nerves II through XII intact. 5/5 strength and sensation in all extremities SKIN: Warm, Dry, normal turgor, no rashes or lesions noted. " - Medical Decision Making 05/24/18 12:52 73 F with SOB and ESPINOZA. Also complaining of acute on chronic R knee pain. Pt with hypoxia to 87% on RA in ED. Vitals otherwise wnl. Will need to r/o DVT and PE given R leg pain, significant leg swelling and immobility. Will also evaluate for CHF. - Labs, trop, BNP - LE dopplers - CTA chest 05/24/18 14:34 CXR clear Trop negative Pt with Cr 1.9, unable to obtain CTA. Will admit for V/Q scan
--- NOTE | 2018-05-24 12:55 | PDOC ---
History of Present Illness - History of Present Illness Initial Comments: 05/24/18 12:55 73 yo F w a hx of HTN, HLD, DM, CAD, pacemaker, Venous Insufficiency who presents for evaluation of SOB. She has been so short of breath that she is having a difficult time walking. She also has right lower extremity pain. The pain began on and has worsened over the past 4 days. She is usually able to walk around the house and to the bathroom but for the past 4 days she has not been able to ambulate. Her aid says this is new and she's never not been able to walk in the past. She denies any worsening swelling in her lower extremities and notes that her lower extremity edema is chronic in nature. The patient otherwise denies fevers , chills, chest pain, nausea, vomiting, abdominal pain, or changes with urination or bowel movements. 05/24/18 12:55 05/24/18 12:57 05/24/18 15:15 <Justo James - Last Filed: 05/24/18 15:15> <Azael Addison - Last Filed: 05/24/18 15:23> - General Chief Complaint: Edema Stated Complaint: EDEMA Time Seen by Provider: 05/24/18 11:23 Past History - Past Medical History Anemia: Yes (ISH) Asthma: No Cancer: No Cardiac Disorders: Yes (HCVD, chest pain syndrome) CVA: No COPD: No CHF: Yes Dementia: No Diabetes: Yes (TYPE II) GI Disorders: No Disorders: Yes (Renal Insuffiency) HTN: Yes Hypercholesterolemia: Yes Liver Disease: No Psychiatric Problems: Yes (anxiety) Seizures: No Thyroid Disease: No - Surgical History Abdominal Surgery: No Appendectomy: No Cardiac Surgery: Yes (STENTS/PPM 2007) Cholecystectomy: No Lung Surgery: No Neurologic Surgery: No Orthopedic Surgery: No - Immunization History Td Vaccination: Yes TDAP Vaccination: Yes Immunization Up to Date: Yes - Suicide/Smoking/Psychosocial Hx Smoking Status: No Smoking History: Never smoked Have you smoked in the past 12 months: No Number of Cigarettes Smoked Daily: 0 Information on smoking cessation initiated: No Hx Alcohol Use: No Drug/Substance Use Hx: No Substance Use Type: None Hx Substance Use Treatment: No <Justo James - Last Filed: 05/24/18 15:15> <Azael Addison - Last Filed: 05/24/18 15:23> - Past Medical History Allergies/Adverse Reactions: Allergies Allergy/AdvReac Type Severity Reaction Status Date / Time No Known Allergies Allergy Verified 05/24/18 11:57 Home Medications: Ambulatory Orders Allopurinol [Zyloprim -] 100 mg PO DAILY 02/24/16 Omeprazole 20 mg PO DAILY 10/02/16 Carvedilol [Coreg -] 6.25 mg PO BID #60 tablet 02/24/17 Amlodipine Besylate 5 mg PO DAILY 05/24/18 Cholecalciferol (Vitamin D3) [Vitamin D3] 1,000 unit PO DAILY 05/24/18 Furosemide [Lasix -] 40 mg PO DAILY 05/24/18 Pravastatin Sodium 20 mg PO HS 05/24/18 Sevelamer Carbonate [Renvela] 800 mg PO TID 05/24/18 Review of Systems - Review of Systems Comments:: 05/24/18 13:11 Constitutional: No fevers, chills, fatigue, malaise HEENT: No Rhinorrhea, nasal congestion, visual changes Cardiovascular: No chest pain, syncope, palpitations, lightheadedness Respiratory: No Cough, SOB, Hemoptysis, Gastrointestinal: No Abdominal pain, Nausea, Vomiting, Constipation, Diarrhea, Melena Genitourinary: No Dysuria, Frequency, Urgency, Hesitancy, Hematuria, Flank pain Musculoskeletal: Right lower extremity pain. No Myalgia, arthralgia Skin: No rashes, itching, bruising, pallor Neurologic: No Headache, Dizziness, Numbness, Weakness, or Tingling Psychiatric: No Hallucinations. No SI or HI <Justo James - Last Filed: 05/24/18 15:15> *Physical Exam - Vital Signs Last Vital Signs Temp Pulse Resp BP Pulse Ox 98.8 F 91 H 16 132/63 100 05/24/18 11:13 05/24/18 11:13 05/24/18 11:13 05/24/18 11:13 05/24/18 11:13 - Physical Exam Comments: 05/24/18 13:11 R Knee: There is no apparent swelling or erythema in the R knee compared to the left. There is TTP of the right knee General Appearance: Nourished. No Apparent Distress HEENT: No Pharyngeal Erythema, Tonsillar Exudate, Tonsillar Erythema Neck: No Cervical Lymphadenopathy Respiratory/Chest: Lungs Clear, Normal Breath Sounds. No Crackles, Rales, Rhonchi, Wheezing Cardiovascular: Regular Rhythm, Regular Rate. No Murmur, Gallops, Rubs Gastrointestinal/Abdominal: Normal Bowel Sounds, Soft. No Guarding, Rebound, Tenderness Musculoskeletal: No CVA Tenderness Extremity: Bilaterally 4+ pitting edema to the lower extremities. 8cm x 4cm area of erythema with warmth noted to the right lower extremity. Normal Capillary Refill Integumentary: Normal Color, Dry, Warm Neurologic: Fully Oriented, Alert, Normal Mood/Affect, Normal Response, <Justo James - Last Filed: 05/24/18 15:15> - Vital Signs Last Vital Signs Temp Pulse Resp BP Pulse Ox 98.8 F 91 H 16 132/63 100 05/24/18 11:13 05/24/18 11:13 05/24/18 11:13 05/24/18 11:13 05/24/18 11:13 <Azael Addison - Last Filed: 05/24/18 15:23> ED Treatment Course - LABORATORY CBC & Chemistry Diagram: 05/24/18 11:49 05/24/18 11:49 - ADDITIONAL ORDERS Additional order review: Laboratory Results 05/24/18 11:49 Sodium 145 Potassium 4.7 Chloride 110 H Carbon Dioxide 27 Anion Gap 8 BUN 24 H Creatinine 1.9 H Creat Clearance w eGFR 25.84 Random Glucose 175 H Calcium 9.5 Total Bilirubin 0.4 AST 35 ALT 17 Alkaline Phosphatase 118 H Creatine Kinase 582 H Troponin I 0.02 B-Natriuretic Peptide 3753.20 H Total Protein 6.8 Albumin 3.0 L 05/24/18 11:49 RBC 4.54 MCV 69.3 L MCHC 30.6 L RDW 15.5 MPV 11.6 H Neutrophils % 76.4 Lymphocytes % 14.2 Monocytes % 6.3 Eosinophils % 2.1 Basophils % 1.0 - RADIOLOGY Radiology Studies Ordered: Category Date Time Status DUPLEX VASCUL US-1 LEG [US] Stat Ultrasound 05/24/18 11:51 Ordered <Justo James - Last Filed: 05/24/18 15:15> - LABORATORY CBC & Chemistry Diagram: 05/24/18 11:49 05/24/18 11:49 - ADDITIONAL ORDERS Additional order review: Laboratory Results 05/24/18 05/24/18 05/24/18 13:19 13:19 11:49 PT with INR 12.50 INR 1.11 PTT (Actin FS) 31.0 VBG pH 7.35 POC VBG pCO2 51.1 POC VBG pO2 29.7 D Mixed VBG HCO3 27.6 H Sodium 145 Potassium 4.7 Chloride 110 H Carbon Dioxide 27 Anion Gap 8 BUN 24 H Creatinine 1.9 H Creat Clearance w eGFR 25.84 Random Glucose 175 H Calcium 9.5 Total Bilirubin 0.4 AST 35 ALT 17 Alkaline Phosphatase 118 H Creatine Kinase 582 H Creatine Kinase Index 0.6 CK-MB (CK-2) 4.04 H Troponin I 0.02 B-Natriuretic Peptide 3753.20 H Total Protein 6.8 Albumin 3.0 L 05/24/18 11:49 RBC 4.54 MCV 69.3 L MCHC 30.6 L RDW 15.5 MPV 11.6 H Neutrophils % 76.4 Lymphocytes % 14.2 Monocytes % 6.3 Eosinophils % 2.1 Basophils % 1.0 - RADIOLOGY Radiology Studies Ordered: Category Date Time Status CHEST X-RAY PORTABLE* [RAD] Stat Radiology 05/24/18 12:05 Completed <Azael Addison - Last Filed: 05/24/18 15:23> Medical Decision Making - Medical Decision Making 05/24/18 15:13 73 yo F HTN, HLD, DM, CAD, pacemaker, Venous Insufficiency here with SOB and inability to ambulate. We are concerned that she might have a PE. Because her Cr is 1.9 she cannot have a CTA. Plan: we are getting a duplex venous and arterial of the right leg to r/o DVT or arterial obstruction. Dispo: VQ scan, Admit. 05/24/18 15:14 05/24/18 15:16 <Justo James - Last Filed: 05/24/18 15:15> *DC/Admit/Observation/Transfer <Justo James - Last Filed: 05/24/18 15:15> - Discharge Dispostion Decision to Admit order: Yes <Azael Addison - Last Filed: 05/24/18 15:23> Diagnosis at time of Disposition: SOB (shortness of breath) on exertion, Knee pain, acute, Chest pain - Referrals Referrals: Margarita Ochoa MD [Primary Care Provider] - - Patient Instructions - Post Discharge Activity
[2018-05-24 13:35] LABS: VENOUS PC02 51.1 mmHg (38-52); VENOUS PH 7.35 (7.32-7.42); VENOUS PO2 29.7 mmHg (28-48)
[2018-05-24 14:01] LABS: INR 1.11 (0.82-1.09); PROTHROMBIN TIME (PATIENT) 12.5 SEC (9.7-13.0)
[2018-05-24] MEDS ORDERED: amLODIPine BESYLATE 5 MG TABLET (FP) PO ONE (16:14)
[2018-05-24] MEDS ORDERED: amLODIPine BESYLATE 5 MG TABLET (FP) ONE (16:25)
--- NOTE | 2018-05-24 21:49 | EKG ---
Test Reason : Blood Pressure : / mmHG Vent. Rate : 091 BPM Atrial Rate : 091 BPM P-R Int : 000 ms QRS Dur : 160 ms QT Int : 426 ms P-R-T Axes : 021 107 035 degrees QTc Int : 523 ms Suspect unspecified pacemaker failure Ventricular-paced rhythm ABNORMAL ECG WHEN COMPARED WITH ECG OF 14-APR-2018 10:45, NO SIGNIFICANT CHANGE WAS FOUND Confirmed by MD ABBE, DEONTE ([id number]) on 05/24/2018 9:49:05 PM Referred By: Confirmed By:DEONTE MCADAMS MD
--- NOTE | 2018-05-24 21:55 | RAPID ---
Physical Examination Vital Signs: Vital Signs Temperature 98 F 05/24/18 20:52 Pulse Rate 77 05/24/18 20:52 Respiratory Rate 18 05/24/18 20:52 Blood Pressure 122/67 05/24/18 20:52 O2 Sat by Pulse Oximetry (%) 98 05/24/18 21:02 Labs: CBC, BMP 05/24/18 11:49 05/24/18 11:49 Rapid Response - Rapid Response Assessment: Rapid response was called at 9:08. On arriving to see the patient, pt was somnolent and somewhat rousable with difficulty. Pt does wake and speak in phrases, but only intermittently. BGM was 146. O2 sat was 100. BP was initially 80s systolic, but came up to 140's systolic without intervention. Pt afebrile, not tachycardic, not tachypnic. AMS, not alert or oriented. Unknown baseline. CT head. Transfer to ICU.
[2018-05-24] MEDS ORDERED: ATORVASTATIN CA 10 MG TABLET (FP) PO SCH (22:00)
--- NOTE | 2018-05-24 22:38 | CONSULT ---
Consultation: REQUESTING PROVIDER: CONSULT REQUEST: We have been asked to medically evaluate this patient for ( intensive care). HISTORY OF PRESENT ILLNESS: 73 F with h/o HTN, HLD, DM, CAD, Venous Insufficiency presenting to ED with SOB and RLE pain. Pt states that she has chronic RLE pain that has been progressively worsening over the past week. Today , she notes that it got to the point that she was unable to ambulate. The pain is localized to the R knee. She denies any new swelling or redness. Pt also reports feeling SOB. Per home service technician, pt was found to be breathing heavily 4 days ago and since then has had significantly decreased exercise tolerance, becoming winded after only a few steps. Denies chest pain. Denies cough. Rapid response was called by RN on floor for patient not responding and patient was transferred to ICU. CT head was done and abg was done. In icu patient is awake, alert and oriented. Reports she is a deep sleeper Patinet found to have elevated ddimer but duplex scan is negative for clot, Patient states that she has chronic swelling of legs which is getting worse from last few days also states she has sob from 4-5 days. Patient last echo was done 03/25 which shows LV dysfunction. CXr shows pulmonary congestion. with b/l crackels. Pt creatinine is at base line. Vascular study done before shows b/l venous insufficiency. PHYSICAL EXAMINATION Vital Signs - 24 hr 05/24/18 05/24/18 05/24/18 11:13 16:09 18:18 Temperature 98.8 F 98.8 F 98.6 F Pulse Rate 91 H Pulse Rate [ 83 84 Left] Respiratory 16 18 18 Rate Blood Pressure 132/63 Blood Pressure 167/74 135/67 [Left Arm] O2 Sat by Pulse 100 97 95 Oximetry (%) 05/24/18 05/24/18 20:52 21:02 Temperature 98 F Pulse Rate 77 Pulse Rate [ Left] Respiratory 18 Rate Blood Pressure 122/67 Blood Pressure [Left Arm] O2 Sat by Pulse 98 Oximetry (%) GENERAL: Awake, alert, HEAD: Normal with no signs of trauma. EYES: Pupils equal reactive to light. EARS, NOSE, THROAT: Moist mucous membranes. NECK: supple without lymphadenopathy, mild jvp LUNGS: Breath sounds equal, crackles ++ b/l . No accessory muscle use. HEART: Regular rate and rhythm, normal S1 and S2 without murmur, pacemaker present on right side. ABDOMEN: Soft, nontender, not distended, normoactive bowel sounds, no guarding, no rebound, no masses. UPPER EXTREMITIES: 2+ pulses, warm, well-perfused. No cyanosis. LOWER EXTREMITIES: warm, well-perfused. No calf tenderness. peripheral edema + + skin discoloration present Rt side. NEUROLOGICAL: Cranial nerves II-XII intact. Normal speech. PSYCHIATRIC: Cooperative. Good eye contact. SKIN: Warm, dry, Laboratory Results - last 24 hr 05/24/18 05/24/18 05/24/18 11:49 11:49 13:19 WBC 7.0 RBC 4.54 Hgb 9.6 L Hct 31.4 L MCV 69.3 L MCH 21.2 L MCHC 30.6 L RDW 15.5 Plt Count 230 D MPV 11.6 H Absolute Neuts (auto) 5.3 Neutrophils % 76.4 Lymphocytes % 14.2 Monocytes % 6.3 Eosinophils % 2.1 Basophils % 1.0 Nucleated RBC % 0 Hypochromia 3+ Platelet Estimate Normal Microcytosis 1+ PT with INR 12.50 INR 1.11 PTT (Actin FS) 31.0 D-Dimer VBG pH POC VBG pCO2 POC VBG pO2 Mixed VBG HCO3 Sodium 145 Potassium 4.7 Chloride 110 H Carbon Dioxide 27 Anion Gap 8 BUN 24 H Creatinine 1.9 H Creat Clearance w eGFR 25.84 POC Glucometer Random Glucose 175 H Calcium 9.5 Total Bilirubin 0.4 AST 35 ALT 17 Alkaline Phosphatase 118 H Creatine Kinase 582 H Creatine Kinase Index 0.6 CK-MB (CK-2) 4.04 H Troponin I 0.02 B-Natriuretic Peptide 3753.20 H Total Protein 6.8 Albumin 3.0 L 05/24/18 05/24/18 05/24/18 13:19 16:10 20:12 WBC RBC Hgb Hct MCV MCH MCHC RDW Plt Count MPV Absolute Neuts (auto) Neutrophils % Lymphocytes % Monocytes % Eosinophils % Basophils % Nucleated RBC % Hypochromia Platelet Estimate Microcytosis PT with INR INR PTT (Actin FS) D-Dimer 1489 H VBG pH 7.35 POC VBG pCO2 51.1 POC VBG pO2 29.7 D Mixed VBG HCO3 27.6 H Sodium Potassium Chloride Carbon Dioxide Anion Gap BUN Creatinine Creat Clearance w eGFR POC Glucometer 140 Random Glucose Calcium Total Bilirubin AST ALT Alkaline Phosphatase Creatine Kinase Creatine Kinase Index CK-MB (CK-2) Troponin I B-Natriuretic Peptide Total Protein Albumin Active Medications Generic Name Dose Route Start Last Admin Trade Name Garryq PRN Reason Stop Dose Admin Allopurinol 100 mg 05/25/18 10:00 Zyloprim - PO DAILY MARTIN Amlodipine Besylate 5 mg 05/25/18 10:00 Norvasc - PO DAILY MARTIN Atorvastatin Calcium 10 mg 05/24/18 22:00 Lipitor - PO HS MARTIN Carvedilol 6.25 mg 05/24/18 22:00 Coreg - PO BID MARTIN Chlorhexidine Gluconate 1 applic 05/24/18 22:00 Hibiclens For Decolonization - TP HS MARTIN Furosemide 40 mg 05/25/18 10:00 Lasix Injection - IVPUSH DAILY [facility] Heparin Sodium (Porcine) 5,000 unit 05/24/18 22:00 Heparin - SQ BID MARTIN Mupirocin 1 applic 05/24/18 22:00 Bactroban Ointment (For Decolonization) - NS 05/29/18 21:59 BID MARTIN Pantoprazole Sodium 20 mg 05/25/18 10:00 Protonix - PO DAILY MARTIN Sevelamer Carbonate 800 mg 05/24/18 21:00 Renvela - PO TIDCM [facility] ASSESSMENT/PLAN: Problem list Likely acute on chronic Left sided systolic heart failure. pulmonary edema from chf. ckd, cr at base line. Chronic B/l venous insufficiency. IDDM CAD s/p pace maker HTN HLD Plan Iv lasix push 80 mg once then 40 mg daily depending upon her response. monitor intake and output low salt diet. keep head end elevated echo from 03/25 reviewed Moderate LV dysfunction with global hypokinesia. Daily wt 257 pounds. repeat cxr in am. continue coreg, for HTN continue home meds. start Novolog sliding scale, bgm achs. for venous insufficinecy keep legs elevated, compression stocking. monitor vitals. icu care. Dispo: We will continue to follow the patient. Thank you for this consultative opportunity. Visit type - Emergency Visit Emergency Visit: Yes ED Registration Date: 05/24/18 Care time: The patient presented to the Emergency Department on the above date and was hospitalized for further evaluation of their emergent condition. - New Patient This patient is new to me today: Yes Date on this admission: 05/25/18 - Critical Care Critical Care patient: Yes Total Critical Care Time (in minutes): 60 Critical Care Statement: The care of this patient involved high complexity decision making to prevent further life threatening deterioration of the patient 's condition and/or to evaluate & treat vital organ system(s) failure or risk of failure.
[2018-05-24] MEDS ORDERED: FUROSEMIDE 40 MG/4 ML INJECTABLE VIAL ONE (22:49)
[2018-05-24 22:59] LABS: ARTERIAL BLD GAS O2 SATURATION 98.4 % (90-98.9); ARTERIAL BLOOD GAS BASE EXCESS 2.6 meq/l (-2-2); ARTERIAL BLOOD GAS PCO2 49.6 mmHg (35-45); ARTERIAL BLOOD GAS pH 7.37 (7.35-7.45)
[2018-05-24 23:00] LABS: ALLENS TEST POSITIVE
[2018-05-24] MEDS ORDERED: FUROSEMIDE 40 MG/4 ML INJECTABLE VIAL IVPUSH ONE (23:00)
[2018-05-24] MEDS: HEPARIN NA (PORCINE) 5,000 UNITS/ML 1ML VIAL SQ SCH (23:03)
[2018-05-24] MEDS: SEVELAMER CARBONATE 800 MG TAB (FP) PO SCH (23:03)
[2018-05-24] MEDS: CARVEDILOL 6.25 MG TABLET (FP) PO SCH (23:03)
[2018-05-24] MEDS: CHLORHEXIDINE GLUCONATE 4% CLEANSER FOR DECOLONIZATION TP SCH (23:04)
[2018-05-24] MEDS: MUPIROCIN 2% TOPICAL OINTMENT FOR DECOLONIZATION NS SCH (23:04)
[2018-05-25 05:58] LABS: BASO % 1.3 % (0-2.0); EOS % 3.6 % (0-4.5); HEMATOCRIT 29.7 % (32.4-45.2); HEMOGLOBIN 9.5 GM/dL (10.7-15.3); LYMPH % 21.6 % (8-40); MCH 22.2 pg (25.7-33.7); MCHC 31.9 g/dl (32.0-36.0); MEAN CELL VOLUME 69.7 fl (80-96); MEAN PLT VOLUME 10.9 fl (7.5-11.1); MONO % 8.9 % (3.8-10.2); NEUT % 64.6 % (42.8-82.8); PLATELET COUNT 190 K/MM3 (134-434); RBC 4.26 M/mm3 (3.60-5.2); RDW 15.3 % (11.6-15.6); WHITE BLOOD COUNT 7.5 K/mm3 (4.0-10.0)
[2018-05-25 06:56] LABS: ALBUMIN 2.8 g/dl (3.4-5.0); ANION GAP 7 (8-16); BLOOD UREA NITROGEN 24 mg/dL (7-18); CALCIUM 8.7 mg/dL (8.5-10.1); CHLORIDE 109 mmol/L (98-107); CO2 31 mmol/L (21-32); CREATININE 1.8 mg/dL (0.55-1.02); GLUCOSE,RANDOM 245 mg/dL (74-106); SGOT/AST 20 U/L (15-37); SGPT/ALT 14 U/L (12-78); SODIUM 147 mmol/L (136-145)
[2018-05-25 06:58] LABS: ALK PHOS 107 U/L (45-117); BILIRUBIN,TOTAL 0.4 mg/dL (0.2-1.0); TOT PROT 6.2 g/dl (6.4-8.2)
[2018-05-25] MEDS: FUROSEMIDE 40 MG/4 ML INJECTABLE VIAL IVPUSH SCH (09:55)
[2018-05-25] MEDS: SEVELAMER CARBONATE 800 MG TAB (FP) PO SCH ×3 (09:56→17:19)
[2018-05-25] MEDS: MUPIROCIN 2% TOPICAL OINTMENT FOR DECOLONIZATION NS SCH ×2 (09:56→21:40)
[2018-05-25] MEDS: HEPARIN NA (PORCINE) 5,000 UNITS/ML 1ML VIAL SQ SCH ×2 (09:57→21:40)
[2018-05-25] MEDS: CARVEDILOL 6.25 MG TABLET (FP) PO SCH (09:57)
[2018-05-25] MEDS ORDERED: PANTOPRAZOLE 20 MG TABLET (FP) PO SCH (10:00)
[2018-05-25] MEDS ORDERED: ALLOPURINOL 100 MG TABLET (FP) PO SCH (10:00)
[2018-05-25] MEDS ORDERED: amLODIPine BESYLATE 5 MG TABLET (FP) PO SCH (10:00)
[2018-05-25] MEDS ORDERED: FUROSEMIDE 20 MG TABLET (FP) PO SCH (10:00)
[2018-05-25] MEDS ORDERED: CARVEDILOL 6.25 MG TABLET (FP) PO ONE (10:45)
[2018-05-25] MEDS ORDERED: RAMIPRIL 2.5 MG CAPSULE (FP) PO SCH (10:45)
--- NOTE | 2018-05-25 10:57 | HP ---
Admitting History and Physical - Primary Care Physician PCP: Iesha Combs - Admission Chief Complaint: SOB History of Present Illness: 73 yrs old female came to ER yesterday for worsening SOB and right leg pain for about a week. 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 Pt awake and at baseline. 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 MAKER-D) Pulmonary: Yes: COPD Gastrointestinal: Yes: GERD, Other (anemia, IRON DEF) Renal/: Yes: Renal Inusuff Heme/Onc: Yes: Anemia Musculoskeletal: Yes: Osteoarthritis Rheumatology: Yes: Gout Endocrine: Yes: Diabetes Mellitus - Past Surgical History Past Surgical History: Yes: AICD, Stent - Smoking History Smoking history: Never smoked Have you smoked in the past 12 months: No Aproximately how many cigarettes per day: 0 - Alcohol/Substance Use Hx Alcohol Use: No - Social History ADL: Support Services Home Medications - Allergies Allergies/Adverse Reactions: Allergies Allergy/AdvReac Type Severity Reaction Status Date / Time No Known Allergies Allergy Verified 05/24/18 11:57 - Home Medications Home Medications: Ambulatory Orders Allopurinol [Zyloprim -] 100 mg PO DAILY 02/24/16 Omeprazole 20 mg PO DAILY 10/02/16 Carvedilol [Coreg -] 6.25 mg PO BID #60 tablet 02/24/17 Amlodipine Besylate 5 mg PO DAILY 05/24/18 Cholecalciferol (Vitamin D3) [Vitamin D3] 1,000 unit PO DAILY 05/24/18 Furosemide [Lasix -] 40 mg PO DAILY 05/24/18 Pravastatin Sodium 20 mg PO HS 05/24/18 Sevelamer Carbonate [Renvela] 800 mg PO TID 05/24/18 Review of Systems - Review of Systems Constitutional: denies: Chills Respiratory: reports: SOB, SOB on Exertion Physical Examination Vital Signs: Vital Signs Temperature 98.5 F 05/25/18 10:00 Pulse Rate 77 05/25/18 10:00 Respiratory Rate 18 05/25/18 10:00 Blood Pressure 156/56 05/25/18 10:00 O2 Sat by Pulse Oximetry (%) 97 05/25/18 09:00 Constitutional: Yes: No Distress, Calm Cardiovascular: Yes: Regular Rate and Rhythm Respiratory: Yes: Diminished Gastrointestinal: Yes: Normal Bowel Sounds, Soft, Abdomen, Obese. No: Tenderness Edema: Yes Edema: LLE: 2+, RLE: 2+ Labs: CBC, BMP 05/25/18 05:30 05/25/18 05:30 Imaging - Results Chest X-ray: Image Reviewed (congestion B/L) EKG: Image Reviewed (paced) Problem List - Problems (1) Pulmonary edema Code(s): J81.1 - CHRONIC PULMONARY EDEMA (2) Arthritis Code(s): M19.90 - UNSPECIFIED OSTEOARTHRITIS, UNSPECIFIED SITE (3) SOB (shortness of breath) on exertion Code(s): R06.02 - SHORTNESS OF BREATH (4) HTN (hypertension) Code(s): I10 - ESSENTIAL (PRIMARY) HYPERTENSION Qualifiers: Hypertension type: essential hypertension Qualified Code(s): I10 - Essential (primary) hypertension (5) IDDM (insulin dependent diabetes mellitus) Code(s): E11.9 - TYPE 2 DIABETES MELLITUS WITHOUT COMPLICATIONS; Z79.4 - RECORDS ASSISTANT (CURRENT) USE OF INSULIN (6) Renal insufficiency Code(s): N28.9 - DISORDER OF KIDNEY AND URETER, UNSPECIFIED Assessment/Plan PLAN IV lasix daily Check renal function-- improving today monitor blood sugars cardiology evaluation OK to transfer to the floors pain control PT eval heparin sc for DVT prophylaxis unlikely to be PE
--- NOTE | 2018-05-25 11:08 | PN ---
Teaching Attending Note Name of Resident: Rei Mohan ATTENDING PHYSICIAN STATEMENT I saw and evaluated the patient. I reviewed the resident's note and discussed the case with the resident. I agree with the resident's findings and plan as documented. SUBJECTIVE: Pt seen and examined in the ICU. Denies shortness of breath or chest pain. Mental status at baseline. OBJECTIVE: Vital Signs Period Temp Pulse Resp BP Sys/Etienne Pulse Ox Last 24 Hr 98 F-98.8 F 74-91 14-19 122-167/55-85 95-100 Intake & Output 05/22/18 05/23/18 05/24/18 05/25/18 23:59 23:59 23:59 23:59 Intake Total 300 Output Total 550 Balance -250 Weight 116.63 kg 111.612 kg Gen: NAD at rest Heart: RRR Lung: basilar rales Abd: soft, nontender Ext: + edema CBC, BMP 05/25/18 05:30 05/25/18 05:30 Active Medications Allopurinol (Zyloprim -) 100 mg PO DAILY [facility] Amlodipine Besylate (Norvasc -) 5 mg PO DAILY [facility] Atorvastatin Calcium (Lipitor -) 10 mg PO HS MARTIN Carvedilol (Coreg -) 12.5 mg PO BID [facility] Chlorhexidine Gluconate (Hibiclens For Decolonization -) 1 applic TP HS [facility] Last Admin: 05/24/18 23:04 Dose: 1 applic Furosemide (Lasix Injection -) 40 mg IVPUSH DAILY [facility] Heparin Sodium (Porcine) (Heparin -) 5,000 unit SQ BID [facility] Insulin Aspart (Novolog Vial) 0 units SQ TIDAC [facility]; Protocol Insulin Detemir (Levemir Vial) 22 units SQ BID [facility] Mupirocin (Bactroban Ointment (For Decolonization) -) 1 applic NS BID MARTIN Stop: 05/29/18 21:59 Last Admin: 05/25/18 09:56 Dose: 1 applic Pantoprazole Sodium (Protonix -) 20 mg PO DAILY MARTIN Ramipril (Altace -) 2.5 mg PO DAILY [facility] Last Admin: 05/25/18 11:01 Dose: 2.5 mg Sevelamer Carbonate (Renvela -) 800 mg PO TIDCM [facility] ASSESSMENT AND PLAN: Acute on Chronic Systolic Heart Failure Pulmonary HTN CAD DM HTN Hyperlipidemia CKD - continue lasix - monitor urine output, creatinine - daily weights - beta sonny - add DENISE-I - DVT prophylaxis - can monitor on floor
[2018-05-25] MEDS: INSULIN SLIDING SCALE (NOVOLOG) 1 VIAL SQ SCH ×2 (12:00→17:48)
--- NOTE | 2018-05-25 12:49 | CON.CARD ---
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 She denies chest pain, palpitations, paroxysmal nocturnal dyspnea, orthopnea or LE edema. 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) Pulmonary: Yes: COPD Gastrointestinal: Yes: GERD, Other (anemia, IRON DEF) Renal/: Yes: Renal Inusuff Musculoskeletal: Yes: Osteoarthritis Rheumatology: Yes: Gout Endocrine: Yes: Diabetes Mellitus - Past Surgical History Past Surgical History: Yes: AICD, Stent - Alcohol/Substance Use Hx Alcohol Use: No - Smoking History Smoking history: Never smoked Have you smoked in the past 12 months: No Aproximately how many cigarettes per day: 0 - Social History ADL: Support Services Home Medications - Allergies Allergies/Adverse Reactions: Allergies Allergy/AdvReac Type Severity Reaction Status Date / Time No Known Allergies Allergy Verified 05/24/18 11:57 - Home Medications Home Medications: Ambulatory Orders Allopurinol [Zyloprim -] 100 mg PO DAILY 02/24/16 Omeprazole 20 mg PO DAILY 10/02/16 Carvedilol [Coreg -] 6.25 mg PO BID #60 tablet 02/24/17 Amlodipine Besylate 5 mg PO DAILY 05/24/18 Cholecalciferol (Vitamin D3) [Vitamin D3] 1,000 unit PO DAILY 05/24/18 Furosemide [Lasix -] 40 mg PO DAILY 05/24/18 Pravastatin Sodium 20 mg PO HS 05/24/18 Sevelamer Carbonate [Renvela] 800 mg PO TID 05/24/18 Review of Systems - Review of Systems Cardiovascular: reports: Shortness of Breath Vital Signs: Vital Signs Temperature 98.5 F 05/25/18 10:00 Pulse Rate 74 05/25/18 12:00 Respiratory Rate 18 05/25/18 12:00 Blood Pressure 168/63 05/25/18 12:00 O2 Sat by Pulse Oximetry (%) 97 05/25/18 09:00 Constitutional: Yes: No Distress, Calm Neck: Yes: Supple Respiratory: Yes: Regular, Diminished, On Nasal O2 Gastrointestinal: Yes: Normal Bowel Sounds, Soft Cardiovascular: Yes: Regular Rate and Rhythm JVD: No Carotid Bruit: No Heart Sounds: Yes: S1, S2 Edema: Yes Edema: LLE: 1+, RLE: 1+ - Other Data Labs, Other Data: CBC, BMP 05/25/18 05:30 05/25/18 05:30 INR, PTT INR 1.11 (0.82-1.09) 05/24/18 13:19 Troponin, BNP 05/24/18 11:49 Troponin I 0.02 B-Natriuretic Peptide 3753.20 H Troponin, BNP 05/24/18 11:49 Troponin I 0.02 B-Natriuretic Peptide 3753.20 H V-paced @ 91 Ejection Fraction %: LVEF < 40 % Imaging - Results Chest X-ray: Report Reviewed (Congestion) Problem List - Problems (1) Pulmonary edema Code(s): J81.1 - CHRONIC PULMONARY EDEMA Qualifiers: Chronicity: acute Qualified Code(s): J81.0 - Acute pulmonary edema (2) SOB (shortness of breath) on exertion Code(s): R06.02 - SHORTNESS OF BREATH (3) Acute on chronic renal insufficiency Code(s): N28.9 - DISORDER OF KIDNEY AND URETER, UNSPECIFIED; N18.9 - CHRONIC KIDNEY DISEASE, UNSPECIFIED (4) Biventricular ICD (implantable cardioverter-defibrillator) in place Code(s): Z95.810 - PRESENCE OF AUTOMATIC (IMPLANTABLE) CARDIAC DEFIBRILLATOR (5) CHF (congestive heart failure) Code(s): I50.9 - HEART FAILURE, UNSPECIFIED Qualifiers: Heart failure type: combined systolic and diastolic Heart failure chronicity: acute on chronic Qualified Code(s): I50.43 - Acute on chronic combined systolic (congestive) and diastolic (congestive) heart failure (6) HTN (hypertension) Code(s): I10 - ESSENTIAL (PRIMARY) HYPERTENSION Qualifiers: Hypertension type: essential hypertension Qualified Code(s): I10 - Essential (primary) hypertension (7) History of percutaneous coronary intervention Code(s): Z98.89 - OTHER SPECIFIED POSTPROCEDURAL STATES * DO NOT USE * (8) Hypercholesterolemia Code(s): E78.0 - PURE HYPERCHOLESTEROLEMIA * DO NOT USE * (9) IDDM (insulin dependent diabetes mellitus) Code(s): E11.9 - TYPE 2 DIABETES MELLITUS WITHOUT COMPLICATIONS; Z79.4 - DIESEL ROLLER OPERATOR (CURRENT) USE OF INSULIN Assessment/Plan March 2018 Echo: Mild-mod decreased LVEF 40-45%, pacemaker lead, mild MR, TR, pulm HTN 1. Acute on chronic LV diastolic/systolic failure pulmonary HTN 2. CAD s/p PCI/stent, angina pectoris 3. 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 HTN/HCVD 6. Insulin-dependent type 2 diabetes mellitus 7. Hypercholesterolemia 8. CKD PLAN: 1. IV diuresis with monitor diuretic response, renal function and electrolytes 2. Continue Carvedilol 6.25 bid and resume Valsartan 40 qd, pravachol 20 qhs and Spironolactone 25 qd, ASA 81 qd 3. Thank you for consultative opportunity
--- NOTE | 2018-05-25 13:30 | PN ---
Physical Exam: SUBJECTIVE: Patient seen and examined in the ICU. Pt sitting comfortably in bed eating breakfast. No complaints of shortness of breath or cough at this time. Pt is awake and alert, unable to explain what happened last night or why she is in ICU, possibly due to language barrier, though she does understand enough korean to cooperate with simple interview and full exam. OBJECTIVE: Vital Signs Period Temp Pulse Resp BP Sys/Etienne Pulse Ox Last 24 Hr 98 F-98.8 F 74-84 14-19 122-168/55-85 95-98 GENERAL: The patient is awake, alert, and oriented, in no acute distress. HEAD: Normal with no signs of trauma. EYES: PERRL, sclera anicteric, conjunctiva clear. No ptosis. ENT: Ears normal, nares patent, oropharynx clear without exudates, moist mucous membranes. NECK: Trachea midline, full range of motion, supple. LUNGS: Breath sounds equal, decreased breath sounds at the bases, otherwise clear to auscultation bilaterally, no wheezes, no crackles, no accessory muscle use. HEART: Regular rate and rhythm, S1, S2 without murmur, rub or gallop. ABDOMEN: Obese, soft, nontender, nondistended, normoactive bowel sounds, no guarding, no rebound EXTREMITIES: warm, well-perfused, no edema. Decreased ROM in right knee, complaining of pain on movement and weight bearing NEUROLOGICAL: Cranial nerves II through XII grossly intact. Normal speech, gait not observed. SKIN: Warm, dry, normal turgor, no rashes or lesions noted Laboratory Results - last 24 hr 05/24/18 05/24/18 05/24/18 13:19 13:19 16:10 WBC RBC Hgb Hct MCV MCH MCHC RDW Plt Count MPV Absolute Neuts (auto) Neutrophils % Lymphocytes % Monocytes % Eosinophils % Basophils % Nucleated RBC % PT with INR 12.50 INR 1.11 PTT (Actin FS) 31.0 D-Dimer 1489 H Anticoagulation Therapy Puncture Site ABG pH ABG pCO2 at Pt Temp ABG pO2 at Pt Temp ABG HCO3 ABG O2 Sat (Measured) ABG O2 Content ABG Base Excess Jeramy Test VBG pH 7.35 POC VBG pCO2 51.1 POC VBG pO2 29.7 D Mixed VBG HCO3 27.6 H O2 Delivery Device Oxygen Flow Rate Vent Mode Vent Rate Mechanical Rate Pressure Support Vent Sodium Potassium Chloride Carbon Dioxide Anion Gap BUN Creatinine Creat Clearance w eGFR POC Glucometer Random Glucose Calcium Total Bilirubin AST ALT Alkaline Phosphatase Total Protein Albumin 05/24/18 05/24/18 05/25/18 20:12 22:45 05:30 WBC 7.5 RBC 4.26 Hgb 9.5 L Hct 29.7 L MCV 69.7 L MCH 22.2 L MCHC 31.9 L RDW 15.3 Plt Count 190 MPV 10.9 Absolute Neuts (auto) 4.9 Neutrophils % 64.6 Lymphocytes % 21.6 D Monocytes % 8.9 Eosinophils % 3.6 Basophils % 1.3 Nucleated RBC % 0 PT with INR INR PTT (Actin FS) D-Dimer Anticoagulation Therapy No Result Required. Puncture Site Right radial ABG pH 7.37 ABG pCO2 at Pt Temp 49.6 H ABG pO2 at Pt Temp 112.0 H ABG HCO3 27.9 H ABG O2 Sat (Measured) 98.4 ABG O2 Content 13.6 L ABG Base Excess 2.6 H Jeramy Test Positive VBG pH POC VBG pCO2 POC VBG pO2 Mixed VBG HCO3 O2 Delivery Device Nc Oxygen Flow Rate 3 Vent Mode No Result Required. Vent Rate No Result Required. Mechanical Rate No Result Required. Pressure Support Vent No Result Required. Sodium Potassium Chloride Carbon Dioxide Anion Gap BUN Creatinine Creat Clearance w eGFR POC Glucometer 140 Random Glucose Calcium Total Bilirubin AST ALT Alkaline Phosphatase Total Protein Albumin 05/25/18 05/25/18 05:30 11:43 WBC RBC Hgb Hct MCV MCH MCHC RDW Plt Count MPV Absolute Neuts (auto) Neutrophils % Lymphocytes % Monocytes % Eosinophils % Basophils % Nucleated RBC % PT with INR INR PTT (Actin FS) D-Dimer Anticoagulation Therapy Puncture Site ABG pH ABG pCO2 at Pt Temp ABG pO2 at Pt Temp ABG HCO3 ABG O2 Sat (Measured) ABG O2 Content ABG Base Excess Jeramy Test VBG pH POC VBG pCO2 POC VBG pO2 Mixed VBG HCO3 O2 Delivery Device Oxygen Flow Rate Vent Mode Vent Rate Mechanical Rate Pressure Support Vent Sodium 147 H Potassium 4.0 Chloride 109 H Carbon Dioxide 31 Anion Gap 7 L BUN 24 H Creatinine 1.8 H Creat Clearance w eGFR 27.50 POC Glucometer [phone] Random Glucose 245 H Calcium 8.7 Total Bilirubin 0.4 AST 20 ALT 14 Alkaline Phosphatase 107 D Total Protein 6.2 L Albumin 2.8 L Active Medications Generic Name Dose Route Start Last Admin Trade Name Freq PRN Reason Stop Dose Admin Allopurinol 100 mg 05/26/18 10:00 Zyloprim - PO DAILY [facility] Amlodipine Besylate 5 mg 05/26/18 10:00 Norvasc - PO DAILY [facility] Aspirin 81 mg 05/26/18 10:00 Asa - PO DAILY [facility] Atorvastatin Calcium 10 mg 05/25/18 22:00 Lipitor - PO HS [facility] Carvedilol 12.5 mg 05/25/18 22:00 Coreg - PO BID [facility] Chlorhexidine Gluconate 1 applic 05/24/18 22:00 05/24/18 23:04 Hibiclens For Decolonization - TP 1 applic HS [facility] Administration Furosemide 40 mg 05/26/18 10:00 Lasix Injection - IVPUSH DAILY [facility] Heparin Sodium (Porcine) 5,000 unit 05/25/18 22:00 Heparin - SQ BID [facility] Insulin Aspart 1 vial 05/25/18 11:00 05/25/18 12:00 Novolog Vial Sliding Scale - SQ 8 units TIDAC [facility] Administration Protocol Insulin Detemir 22 units 05/25/18 22:00 Levemir Vial SQ BID@0700,2200 [facility] Mupirocin 1 applic 05/24/18 22:00 05/25/18 09:56 Bactroban Ointment (For Decolonization) - NS 05/29/18 21:59 1 applic BID [facility] Administration Pantoprazole Sodium 20 mg 05/26/18 10:00 Protonix - PO DAILY [facility] Sevelamer Carbonate 800 mg 05/25/18 12:00 05/25/18 12:49 Renvela - PO 800 mg TIDCM [facility] Administration Valsartan 40 mg 05/26/18 10:00 Diovan - PO DAILY [facility] ASSESSMENT/PLAN: 73 yo female admitted for SOB, transferred to the ICU after rapid response due to unresponsiveness and concern for airway protection Neuro -No known neuro issues at this time Cardio -Cardiology consult appreciated -Hx HTN, HLD, CAD, and Venous insufficiency Lipitor 10 mg PO Daily ASA 81 mg PO Daily added Norvasc 5 mg PO Daily -dDX acute heart failure Lasix 40 mg IV Daily Coreg 6.25 mg PO BID increased to 12.5 mg PO BID for better rate control Diovan 40 mg PO Daily Respiratory -b/l effusions noted on CT Lasix 80 mg IV given overnight Lasix 40 mg IV Daily GI -GERD - Protonix 20 mg PO Daily Renal -Cr baseline around 2.0 over last year, currently 1.8, follow BMP Endocrine -IDDM Insulin sliding scale for tight glycemic control ID -Unlikely infectious process at this time Not currently on Abx VTE Prophylaxis -Heparin 5000 units SQ BID FEN -Fluids: No fluids -Electrolytes: No electrolyte abnormalities at this time, On Sevelamer Carbonate 800 mg TIDCM, follow BMP -Nutrition: Diabetic Diet Disposition Can be transferred back to Med/Surg Problem List - Problems (1) Knee pain, acute Code(s): M25.569 - PAIN IN UNSPECIFIED KNEE Qualifiers: (2) SOB (shortness of breath) on exertion Code(s): R06.02 - SHORTNESS OF BREATH (3) CAD (coronary artery disease) Code(s): I25.10 - ATHSCL HEART DISEASE OF [place] CORONARY ARTERY W/O ANG PCTRS Qualifiers: Coronary Disease-Associated Artery/Lesion type: circle artery [place] vs. transplanted heart: circle heart Associated angina: without angina Qualified Code(s): I25.10 - Atherosclerotic heart disease of circle coronary artery without angina pectoris (4) CHF (congestive heart failure) Code(s): I50.9 - HEART FAILURE, UNSPECIFIED Qualifiers: Heart failure type: combined systolic and diastolic Heart failure chronicity: acute on chronic Qualified Code(s): I50.43 - Acute on chronic combined systolic (congestive) and diastolic (congestive) heart failure (5) HTN (hypertension) Code(s): I10 - ESSENTIAL (PRIMARY) HYPERTENSION Qualifiers: Hypertension type: essential hypertension Qualified Code(s): I10 - Essential (primary) hypertension (6) Hypercholesterolemia Code(s): E78.0 - PURE HYPERCHOLESTEROLEMIA * DO NOT USE * (7) IDDM (insulin dependent diabetes mellitus) Code(s): E11.9 - TYPE 2 DIABETES MELLITUS WITHOUT COMPLICATIONS; Z79.4 - PENITENTIARY (CURRENT) USE OF INSULIN (8) Uncontrolled diabetes mellitus Code(s): E11.65 - TYPE 2 DIABETES MELLITUS WITH HYPERGLYCEMIA Qualifiers: Diabetes mellitus type: type 2 Diabetes mellitus terminal clerk insulin use: with correction use Diabetes mellitus complication status: with hyperglycemia Qualified Code(s): E11.65 - Type 2 diabetes mellitus with hyperglycemia Visit type - Emergency Visit Emergency Visit: Yes ED Registration Date: 05/24/18 Care time: The patient presented to the Emergency Department on the above date and was hospitalized for further evaluation of their emergent condition. - New Patient This patient is new to me today: Yes Date on this admission: 05/25/18 - Critical Care Critical Care patient: Yes Total Critical Care Time (in minutes): 35 Critical Care Statement: The care of this patient involved high complexity decision making to prevent further life threatening deterioration of the patient 's condition and/or to evaluate & treat vital organ system(s) failure or risk of failure.
[2018-05-25] MEDS ORDERED: INSULIN REGULAR HUMAN 100 UNITS/ML *VIAL IVPUSH ONE (21:30)
[2018-05-25] MEDS: CARVEDILOL 12.5 MG TABLET (FP) PO SCH (21:39)
[2018-05-25] MEDS: CHLORHEXIDINE GLUCONATE 4% CLEANSER FOR DECOLONIZATION TP SCH (21:40)
[2018-05-25] MEDS: INSULIN (LEVEMIR) 100 UNITS/ML UNITS SQ SCH (21:41)
[2018-05-25] MEDS ORDERED: ATORVASTATIN CA 10 MG TABLET (FP) PO SCH (22:00)
[2018-05-25] MEDS ORDERED: ACETAMINOPHEN 325 MG TABLET (FP) PO ONE (22:25)
[2018-05-26 06:24] LABS: BASO % 0.7 % (0-2.0); EOS % 4.6 % (0-4.5); HEMATOCRIT 27.6 % (32.4-45.2); HEMOGLOBIN 8.9 GM/dL (10.7-15.3); LYMPH % 25.8 % (8-40); MCH 22.3 pg (25.7-33.7); MCHC 32.3 g/dl (32.0-36.0); MEAN PLT VOLUME 10.8 fl (7.5-11.1); MONO % 8.9 % (3.8-10.2); PLATELET COUNT 177 K/MM3 (134-434); RDW 15.3 % (11.6-15.6); WHITE BLOOD COUNT 7.3 K/mm3 (4.0-10.0)
[2018-05-26 07:05] LABS: CHLORIDE 106 mmol/L (98-107); POTASSIUM 4.1 mmol/L (3.5-5.1); SODIUM 144 mmol/L (136-145)
[2018-05-26] MEDS: INSULIN SLIDING SCALE (NOVOLOG) 1 VIAL SQ SCH ×3 (07:16→17:27)
[2018-05-26] MEDS: INSULIN (LEVEMIR) 100 UNITS/ML UNITS SQ SCH ×2 (07:17→21:43)
[2018-05-26 07:18] LABS: ALBUMIN 2.5 g/dl (3.4-5.0); ALK PHOS 125 U/L (45-117); ANION GAP 5 (8-16); BILIRUBIN,TOTAL 0.2 mg/dL (0.2-1.0); BLOOD UREA NITROGEN 30 mg/dL (7-18); CALCIUM 8.3 mg/dL (8.5-10.1); CHOLESTEROL 98 mg/dL (50-200); CO2 33 mmol/L (21-32); CREATININE 1.9 mg/dL (0.55-1.02); GLUCOSE,RANDOM 190 mg/dL (74-106); HDL CHOLESTEROL 41 mg/dL (40-60); MAGNESIUM 1.5 mg/dL (1.8-2.4); SGOT/AST 14 U/L (15-37); SGPT/ALT 12 U/L (12-78); TOT PROT 5.7 g/dl (6.4-8.2); TRIGLYCERIDES 78 mg/dL (35-160)
[2018-05-26] MEDS: SEVELAMER CARBONATE 800 MG TAB (FP) PO SCH ×3 (08:43→17:26)
[2018-05-26] MEDS ORDERED: MAGNESIUM OXIDE 400 MG TABLET (FP) PO ONE (09:15)
[2018-05-26] MEDS ORDERED: PT OWN MED DRAWER 7, Y5N ONE (09:36)
[2018-05-26] MEDS: MUPIROCIN 2% TOPICAL OINTMENT FOR DECOLONIZATION NS SCH ×2 (09:48→21:39)
[2018-05-26] MEDS: CARVEDILOL 12.5 MG TABLET (FP) PO SCH ×2 (09:48→21:43)
[2018-05-26] MEDS: ASPIRIN 81 MG CHEWABLE TABLETS PO SCH (09:48)
[2018-05-26] MEDS: VALSARTAN 40 MG TABLET (FP) PO SCH (09:49)
[2018-05-26] MEDS: HEPARIN NA (PORCINE) 5,000 UNITS/ML 1ML VIAL SQ SCH ×2 (09:49→21:44)
--- NOTE | 2018-05-26 09:50 | PN ---
Progress Note, Physician History of Present Illness: Dyspnea improving with diuresis. She denies chest pain, palpitations, paroxysmal nocturnal dyspnea, orthopnea or LE edema. Legs are wrapped. - Current Medication List Current Medications: Active Medications Allopurinol (Zyloprim -) 100 mg PO DAILY [facility] Amlodipine Besylate (Norvasc -) 5 mg PO DAILY [facility] Aspirin (Asa -) 81 mg PO DAILY [facility] Atorvastatin Calcium (Lipitor -) 10 mg PO HS [facility] Last Admin: 05/25/18 21:41 Dose: 10 mg Carvedilol (Coreg -) 12.5 mg PO BID [facility] Last Admin: 05/25/18 21:39 Dose: 12.5 mg Chlorhexidine Gluconate (Hibiclens For Decolonization -) 1 applic TP HS [facility] Last Admin: 05/25/18 21:40 Dose: 1 applic Furosemide (Lasix Injection -) 40 mg IVPUSH DAILY [facility] Heparin Sodium (Porcine) (Heparin -) 5,000 unit SQ BID [facility] Last Admin: 05/25/18 21:40 Dose: 5,000 unit Insulin Aspart (Novolog Vial Sliding Scale -) 1 vial SQ TIDAC [facility]; Protocol Last Admin: 05/26/18 07:16 Dose: 4 units Insulin Detemir (Levemir Vial) 22 units SQ BID@0700,2200 [facility] Last Admin: 05/26/18 07:17 Dose: 22 units Mupirocin (Bactroban Ointment (For Decolonization) -) 1 applic NS BID [facility] Stop: 05/29/18 21:59 Last Admin: 05/25/18 21:40 Dose: 1 applic Pantoprazole Sodium (Protonix -) 20 mg PO DAILY [facility] Sevelamer Carbonate (Renvela -) 800 mg PO TIDCM [facility] Last Admin: 05/26/18 08:43 Dose: 800 mg Valsartan (Diovan -) 40 mg PO DAILY [facility] - Objective Vital Signs: Vital Signs Temperature 98.4 F 05/26/18 02:00 Pulse Rate 71 05/26/18 06:00 Respiratory Rate 05/26/18 06:00 Blood Pressure 155/56 05/26/18 06:00 O2 Sat by Pulse Oximetry (%) 97 05/25/18 20:40 Constitutional: Yes: No Distress, Calm Neck: Yes: Supple Cardiovascular: Yes: Regular Rate and Rhythm Respiratory: Yes: Regular, Diminished, On Nasal O2 Gastrointestinal: Yes: Normal Bowel Sounds, Soft, Abdomen, Obese Edema: Yes Edema: LLE: Trace, RLE: Trace Labs: CBC, BMP 05/26/18 05:30 05/26/18 05:30 INR, PTT INR 1.11 (0.82-1.09) 05/24/18 13:19 - ....Imaging Chest X-ray: Report Reviewed (Congestion) EKG: Report Reviewed (Tele: SR) Problem List - Problems (1) Pulmonary edema Code(s): J81.1 - CHRONIC PULMONARY EDEMA Qualifiers: Chronicity: acute Qualified Code(s): J81.0 - Acute pulmonary edema (2) SOB (shortness of breath) on exertion Code(s): R06.02 - SHORTNESS OF BREATH (3) Acute on chronic renal insufficiency Code(s): N28.9 - DISORDER OF KIDNEY AND URETER, UNSPECIFIED; N18.9 - CHRONIC KIDNEY DISEASE, UNSPECIFIED (4) Biventricular ICD (implantable cardioverter-defibrillator) in place Code(s): Z95.810 - PRESENCE OF AUTOMATIC (IMPLANTABLE) CARDIAC DEFIBRILLATOR (5) CHF (congestive heart failure) Code(s): I50.9 - HEART FAILURE, UNSPECIFIED Qualifiers: Heart failure type: combined systolic and diastolic Heart failure chronicity: acute on chronic Qualified Code(s): I50.43 - Acute on chronic combined systolic (congestive) and diastolic (congestive) heart failure (6) HTN (hypertension) Code(s): I10 - ESSENTIAL (PRIMARY) HYPERTENSION Qualifiers: Hypertension type: essential hypertension Qualified Code(s): I10 - Essential (primary) hypertension (7) History of percutaneous coronary intervention Code(s): Z98.89 - OTHER SPECIFIED POSTPROCEDURAL STATES * DO NOT USE * (8) Hypercholesterolemia Code(s): E78.0 - PURE HYPERCHOLESTEROLEMIA * DO NOT USE * (9) IDDM (insulin dependent diabetes mellitus) Code(s): E11.9 - TYPE 2 DIABETES MELLITUS WITHOUT COMPLICATIONS; Z79.4 - JAIL (CURRENT) USE OF INSULIN (10) Anemia Code(s): D64.9 - ANEMIA, UNSPECIFIED Qualifiers: Anemia type: due to chronic kidney disease Assessment/Plan March 2018 Echo: Mild-mod decreased LVEF 40-45%, pacemaker lead, mild MR, TR, pulm HTN 1. Acute on chronic LV diastolic/systolic failure pulmonary HTN resolving 2. CAD s/p PCI/stent, angina pectoris 3. 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 HTN/HCVD 6. Insulin-dependent type 2 diabetes mellitus 7. Hypercholesterolemia 8. CKD PLAN: 1. IV diuresis with monitor diuretic response, renal function and electrolytes 2. Continue Carvedilol 12.5 bid, Norvasc 5 qd, Valsartan 40 qd, Lipitor 10 qhs and Spironolactone 25 qd, ASA 81 qd 3. DVT and GI prophylaxis 4. OOB to chair and ambulate as tolerated
[2018-05-26] MEDS ORDERED: PANTOPRAZOLE 20 MG TABLET (FP) PO SCH (10:00)
[2018-05-26] MEDS ORDERED: ALLOPURINOL 100 MG TABLET (FP) PO SCH (10:00)
[2018-05-26] MEDS ORDERED: FUROSEMIDE 40 MG/4 ML INJECTABLE VIAL IVPUSH SCH (10:00)
[2018-05-26] MEDS ORDERED: amLODIPine BESYLATE 5 MG TABLET (FP) PO SCH (10:00)
--- NOTE | 2018-05-26 10:14 | PN ---
Progress Note, Physician Chief Complaint: Feeling better Decreased SOB has pain in left leg- decreased - Current Medication List Current Medications: Active Medications Allopurinol (Zyloprim -) 100 mg PO DAILY [facility] Last Admin: 05/26/18 09:47 Dose: 100 mg Amlodipine Besylate (Norvasc -) 5 mg PO DAILY [facility] Last Admin: 05/26/18 09:47 Dose: 5 mg Aspirin (Asa -) 81 mg PO DAILY [facility] Last Admin: 05/26/18 09:48 Dose: 81 mg Atorvastatin Calcium (Lipitor -) 10 mg PO HS [facility] Last Admin: 05/25/18 21:41 Dose: 10 mg Carvedilol (Coreg -) 12.5 mg PO BID [facility] Last Admin: 05/26/18 09:48 Dose: 12.5 mg Chlorhexidine Gluconate (Hibiclens For Decolonization -) 1 applic TP HS [facility] Last Admin: 05/25/18 21:40 Dose: 1 applic Furosemide (Lasix Injection -) 40 mg IVPUSH DAILY [facility] Last Admin: 05/26/18 09:47 Dose: 40 mg Heparin Sodium (Porcine) (Heparin -) 5,000 unit SQ BID [facility] Last Admin: 05/26/18 09:49 Dose: 5,000 unit Insulin Aspart (Novolog Vial Sliding Scale -) 1 vial SQ TIDAC [facility]; Protocol Last Admin: 05/26/18 07:16 Dose: 4 units Insulin Detemir (Levemir Vial) 22 units SQ BID@0700,2200 [facility] Last Admin: 05/26/18 07:17 Dose: 22 units Mupirocin (Bactroban Ointment (For Decolonization) -) 1 applic NS BID [facility] Stop: 05/29/18 21:59 Last Admin: 05/26/18 09:48 Dose: 1 applic Pantoprazole Sodium (Protonix -) 20 mg PO DAILY [facility] Last Admin: 05/26/18 09:55 Dose: 20 mg Sevelamer Carbonate (Renvela -) 800 mg PO TIDCM [facility] Last Admin: 05/26/18 08:43 Dose: 800 mg Spironolactone (Aldactone -) 25 mg PO DAILY [facility] Valsartan (Diovan -) 40 mg PO DAILY [facility] Last Admin: 05/26/18 09:49 Dose: 40 mg - Objective Vital Signs: Vital Signs Temperature 98.4 F 05/26/18 02:00 Pulse Rate 74 05/26/18 08:00 Respiratory Rate 19 05/26/18 08:00 Blood Pressure 141/60 05/26/18 08:00 O2 Sat by Pulse Oximetry (%) 97 05/25/18 20:40 Constitutional: Yes: No Distress, Calm Cardiovascular: Yes: Regular Rate and Rhythm Respiratory: Yes: Diminished Gastrointestinal: Yes: Normal Bowel Sounds, Soft, Abdomen, Obese. No: Distention, Tenderness Edema: Yes (decreased) Labs: CBC, BMP 05/26/18 05:30 05/26/18 05:30 INR, PTT INR 1.11 (0.82-1.09) 05/24/18 13:19 Problem List - Problems (1) Pulmonary edema Code(s): J81.1 - CHRONIC PULMONARY EDEMA Qualifiers: Chronicity: acute Qualified Code(s): J81.0 - Acute pulmonary edema (2) Arthritis Code(s): M19.90 - UNSPECIFIED OSTEOARTHRITIS, UNSPECIFIED SITE (3) SOB (shortness of breath) on exertion Code(s): R06.02 - SHORTNESS OF BREATH (4) HTN (hypertension) Code(s): I10 - ESSENTIAL (PRIMARY) HYPERTENSION Qualifiers: Hypertension type: essential hypertension Qualified Code(s): I10 - Essential (primary) hypertension (5) IDDM (insulin dependent diabetes mellitus) Code(s): E11.9 - TYPE 2 DIABETES MELLITUS WITHOUT COMPLICATIONS; Z79.4 - 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
[2018-05-26] MEDS: SPIRONOLACTONE 25 MG TABLET (FP) PO SCH (10:58)
--- NOTE | 2018-05-26 11:54 | PN ---
Teaching Attending Note Name of Resident: Rei Mohan ATTENDING PHYSICIAN STATEMENT I saw and evaluated the patient. I reviewed the resident's note and discussed the case with the resident. I agree with the resident's findings and plan as documented. SUBJECTIVE: Patient seen and examined in the ICU. Denies shortness of breath or chest pain. Mental status apparently improved from yesterday. OBJECTIVE: Intake & Output 05/23/18 05/24/18 05/25/18 05/26/18 23:59 23:59 23:59 23:59 Intake Total 1320 390 Output Total 550 700 Balance 770 -310 Weight 257 lb 2 oz 246 lb 1 oz 244 lb 6 oz Last Vital Signs Temp Pulse Resp BP Pulse Ox 99.8 F H 72 19 141/60 98 05/26/18 08:00 05/26/18 10:00 05/26/18 08:00 05/26/18 10:00 05/26/18 09:00 Active Medications Allopurinol (Zyloprim -) 100 mg PO DAILY [facility] Last Admin: 05/26/18 09:47 Dose: 100 mg Amlodipine Besylate (Norvasc -) 5 mg PO DAILY [facility] Last Admin: 05/26/18 09:47 Dose: 5 mg Aspirin (Asa -) 81 mg PO DAILY [facility] Last Admin: 05/26/18 09:48 Dose: 81 mg Atorvastatin Calcium (Lipitor -) 10 mg PO HS [facility] Last Admin: 05/25/18 21:41 Dose: 10 mg Carvedilol (Coreg -) 12.5 mg PO BID [facility] Last Admin: 05/26/18 09:48 Dose: 12.5 mg Chlorhexidine Gluconate (Hibiclens For Decolonization -) 1 applic TP HS [facility] Last Admin: 05/25/18 21:40 Dose: 1 applic Furosemide (Lasix Injection -) 40 mg IVPUSH DAILY [facility] Last Admin: 05/26/18 09:47 Dose: 40 mg Heparin Sodium (Porcine) (Heparin -) 5,000 unit SQ BID [facility] Last Admin: 05/26/18 09:49 Dose: 5,000 unit Insulin Aspart (Novolog Vial Sliding Scale -) 1 vial SQ TIDAC [facility]; Protocol Last Admin: 05/26/18 11:39 Dose: 4 units Insulin Detemir (Levemir Vial) 22 units SQ BID@0700,2200 [facility] Last Admin: 05/26/18 07:17 Dose: 22 units Mupirocin (Bactroban Ointment (For Decolonization) -) 1 applic NS BID [facility] Stop: 05/29/18 21:59 Last Admin: 05/26/18 09:48 Dose: 1 applic Pantoprazole Sodium (Protonix -) 20 mg PO DAILY [facility] Last Admin: 05/26/18 09:55 Dose: 20 mg Sevelamer Carbonate (Renvela -) 800 mg PO TIDCM [facility] Last Admin: 05/26/18 11:41 Dose: 800 mg Spironolactone (Aldactone -) 25 mg PO DAILY [facility] Last Admin: 05/26/18 10:58 Dose: 25 mg Valsartan (Diovan -) 40 mg PO DAILY [facility] Last Admin: 05/26/18 09:49 Dose: 40 mg Gen: NAD at rest Heart: RRR Lung: basilar rales Abd: soft, nontender Ext: + edema Laboratory Results - last 24 hr 05/25/18 05/25/18 05/25/18 11:43 17:05 17:41 WBC RBC Hgb Hct MCV MCH MCHC RDW Plt Count MPV Absolute Neuts (auto) Neutrophils % Lymphocytes % Monocytes % Eosinophils % Basophils % Nucleated RBC % Sodium Potassium Chloride Carbon Dioxide Anion Gap BUN Creatinine Creat Clearance w eGFR POC Glucometer 316.18538 > 400 354.47614 Random Glucose Hemoglobin A1c % Calcium Phosphorus Magnesium Total Bilirubin AST ALT Alkaline Phosphatase Total Protein Albumin Triglycerides Cholesterol Total LDL Cholesterol HDL Cholesterol TSH Free T4 05/25/18 05/26/18 05/26/18 21:12 05:30 05:30 WBC RBC Hgb Hct MCV MCH MCHC RDW Plt Count MPV Absolute Neuts (auto) Neutrophils % Lymphocytes % Monocytes % Eosinophils % Basophils % Nucleated RBC % Sodium 144 Potassium 4.1 Chloride 106 Carbon Dioxide 33 H Anion Gap 5 L BUN 30 H Creatinine 1.9 H Creat Clearance w eGFR 25.84 POC Glucometer > 400 Random Glucose 190 H Hemoglobin A1c % 10.4 H Calcium 8.3 L Phosphorus 4.0 Magnesium 1.5 L Total Bilirubin 0.2 AST 14 L ALT 12 Alkaline Phosphatase 125 H D Total Protein 5.7 L Albumin 2.5 L Triglycerides 78 Cholesterol 98 Total LDL Cholesterol 48 HDL Cholesterol 41 TSH 3.28 Free T4 1.20 05/26/18 05:30 WBC 7.3 RBC 4.00 Hgb 8.9 L Hct 27.6 L MCV 69.0 L MCH 22.3 L MCHC 32.3 RDW 15.3 Plt Count 177 MPV 10.8 Absolute Neuts (auto) 4.4 Neutrophils % 60.0 Lymphocytes % 25.8 Monocytes % 8.9 Eosinophils % 4.6 H Basophils % 0.7 Nucleated RBC % 0 Sodium Potassium Chloride Carbon Dioxide Anion Gap BUN Creatinine Creat Clearance w eGFR POC Glucometer Random Glucose Hemoglobin A1c % Calcium Phosphorus Magnesium Total Bilirubin AST ALT Alkaline Phosphatase Total Protein Albumin Triglycerides Cholesterol Total LDL Cholesterol HDL Cholesterol TSH Free T4 ASSESSMENT AND PLAN: Acute on Chronic Systolic Heart Failure Pulmonary HTN CAD DM HTN Hyperlipidemia CKD - Lasix - Monitor urine output, creatinine - daily weights - Beta sonny - ARB - Aldactone - DVT prophylaxis - Cardiac Telemetry monitoring Dr Sagastume Critical care time spent in reviewing chart, evaluating patient and formulating plan - 36 minutes.
--- NOTE | 2018-05-26 14:20 | PN ---
Physical Exam: SUBJECTIVE: Patient seen and examined in the ICU, awaiting transfer to med/ surg. Pt sitting comfortably in bed eating breakfast, with no complaints. Denies : headache, fever, chills, cough, SOB, chest pain, nausea, vomiting. OBJECTIVE: Vital Signs Period Temp Pulse Resp BP Sys/Etienne Pulse Ox Last 24 Hr 98.3 F-99.8 F 69-77 15-21 126-155/48-64 97-98 GENERAL: The patient is awake, alert, and oriented, in no acute distress. HEAD: Normal with no signs of trauma. EYES: PERRL, sclera anicteric, conjunctiva clear. No ptosis. ENT: Ears normal, nares patent, oropharynx clear without exudates, moist mucous membranes. NECK: Trachea midline, full range of motion, supple. LUNGS: Breath sounds equal, CTA b/l, otherwise clear to auscultation bilaterally , no wheezes, no crackles, no accessory muscle use. HEART: Regular rate and rhythm, S1, S2 without murmur, rub or gallop. ABDOMEN: Obese, soft, nontender, nondistended, normoactive bowel sounds, no guarding, no rebound EXTREMITIES: warm, well-perfused, no edema. Decreased ROM in right knee, complaining of pain on movement NEUROLOGICAL: Cranial nerves II through XII grossly intact. Normal speech, gait not observed. SKIN: Warm, dry, normal turgor, no rashes or lesions noted Laboratory Results - last 24 hr 05/25/18 05/25/18 05/25/18 17:05 17:41 21:12 WBC RBC Hgb Hct MCV MCH MCHC RDW Plt Count MPV Absolute Neuts (auto) Neutrophils % Lymphocytes % Monocytes % Eosinophils % Basophils % Nucleated RBC % Sodium Potassium Chloride Carbon Dioxide Anion Gap BUN Creatinine Creat Clearance w eGFR POC Glucometer > [phone] > 400 Random Glucose Hemoglobin A1c % Calcium Phosphorus Magnesium Total Bilirubin AST ALT Alkaline Phosphatase Total Protein Albumin Triglycerides Cholesterol Total LDL Cholesterol HDL Cholesterol TSH Free T4 05/26/18 05/26/18 05/26/18 05:30 05:30 05:30 WBC 7.3 RBC 4.00 Hgb 8.9 L Hct 27.6 L MCV 69.0 L MCH 22.3 L MCHC 32.3 RDW 15.3 Plt Count 177 MPV 10.8 Absolute Neuts (auto) 4.4 Neutrophils % 60.0 Lymphocytes % 25.8 Monocytes % 8.9 Eosinophils % 4.6 H Basophils % 0.7 Nucleated RBC % 0 Sodium 144 Potassium 4.1 Chloride 106 Carbon Dioxide 33 H Anion Gap 5 L BUN 30 H Creatinine 1.9 H Creat Clearance w eGFR 25.84 POC Glucometer Random Glucose 190 H Hemoglobin A1c % 10.4 H Calcium 8.3 L Phosphorus 4.0 Magnesium 1.5 L Total Bilirubin 0.2 AST 14 L ALT 12 Alkaline Phosphatase 125 H D Total Protein 5.7 L Albumin 2.5 L Triglycerides 78 Cholesterol 98 Total LDL Cholesterol 48 HDL Cholesterol 41 TSH 3.28 Free T4 1.20 05/26/18 05/26/18 06:10 11:38 WBC RBC Hgb Hct MCV MCH MCHC RDW Plt Count MPV Absolute Neuts (auto) Neutrophils % Lymphocytes % Monocytes % Eosinophils % Basophils % Nucleated RBC % Sodium Potassium Chloride Carbon Dioxide Anion Gap BUN Creatinine Creat Clearance w eGFR POC Glucometer [phone] Random Glucose Hemoglobin A1c % Calcium Phosphorus Magnesium Total Bilirubin AST ALT Alkaline Phosphatase Total Protein Albumin Triglycerides Cholesterol Total LDL Cholesterol HDL Cholesterol TSH Free T4 Active Medications Generic Name Dose Route Start Last Admin Trade Name Freq PRN Reason Stop Dose Admin Allopurinol 100 mg 05/27/18 10:00 Zyloprim - PO DAILY [facility] Amlodipine Besylate 5 mg 05/27/18 10:00 Norvasc - PO DAILY [facility] Aspirin 81 mg 05/26/18 10:00 05/26/18 09:48 Asa - PO 81 mg DAILY [facility] Administration Atorvastatin Calcium 10 mg 05/26/18 22:00 Lipitor - PO HS [facility] Carvedilol 12.5 mg 05/26/18 22:00 Coreg - PO BID [facility] Chlorhexidine Gluconate 1 applic 05/26/18 22:00 Hibiclens For Decolonization - TP HS [facility] Furosemide 40 mg 05/27/18 10:00 Lasix Injection - IVPUSH DAILY [facility] Heparin Sodium (Porcine) 5,000 unit 05/26/18 22:00 Heparin - SQ BID [facility] Insulin Aspart 1 vial 05/25/18 11:00 05/26/18 11:39 Novolog Vial Sliding Scale - SQ 4 units TIDAC [facility] Administration Protocol Insulin Detemir 22 units 05/25/18 22:00 05/26/18 07:17 Levemir Vial SQ 22 units BID@0700,2200 [facility] Administration Mupirocin 1 applic 05/26/18 22:00 Bactroban Ointment (For Decolonization) - NS 05/29/18 21:59 BID [facility] Pantoprazole Sodium 20 mg 05/27/18 10:00 Protonix - PO DAILY [facility] Sevelamer Carbonate 800 mg 05/26/18 17:30 Renvela - PO TIDCM [facility] Spironolactone 25 mg 05/26/18 10:15 05/26/18 10:58 Aldactone - PO 25 mg DAILY [facility] Administration Valsartan 40 mg 05/26/18 10:00 05/26/18 09:49 Diovan - PO 40 mg DAILY [facility] Administration ASSESSMENT/PLAN: 73 yo female admitted for SOB, transferred to the ICU after rapid response due to unresponsiveness and concern for airway protection Neuro -No known neuro issues at this time Cardio -Cardiology consult appreciated -Hx HTN, HLD, CAD, and Venous insufficiency Lipitor 10 mg PO Daily ASA 81 mg PO Daily added Norvasc 5 mg PO Daily -dDX acute heart failure Lasix 40 mg IV Daily Coreg 12.5 mg PO BID Diovan 40 mg PO Daily Respiratory -b/l effusions noted on CT, CXR noted no change Lasix 40 mg IV Daily GI -GERD - Protonix 20 mg PO Daily Renal -Cr baseline around 2.0 over last year, currently 1.9, follow BMP Endocrine -IDDM Insulin sliding scale for tight glycemic control ID -Unlikely infectious process at this time Not currently on Abx VTE Prophylaxis -Heparin 5000 units SQ BID FEN -Fluids: No fluids -Electrolytes: M.5, repleted , On Sevelamer Carbonate 800 mg TIDCM, follow BMP -Nutrition: Diabetic Diet Disposition Can be transferred back to Med/Surg Problem List - Problems (1) Knee pain, acute Code(s): M25.569 - PAIN IN UNSPECIFIED KNEE Qualifiers: (2) SOB (shortness of breath) on exertion Code(s): R06.02 - SHORTNESS OF BREATH (3) CAD (coronary artery disease) Code(s): I25.10 - ATHSCL HEART DISEASE OF [place] CORONARY ARTERY W/O ANG PCTRS Qualifiers: Coronary Disease-Associated Artery/Lesion type: [place] artery [place] vs. transplanted heart: [place] heart Associated angina: without angina Qualified Code(s): I25.10 - Atherosclerotic heart disease of [place] coronary artery without angina pectoris (4) CHF (congestive heart failure) Code(s): I50.9 - HEART FAILURE, UNSPECIFIED Qualifiers: Heart failure type: combined systolic and diastolic Heart failure chronicity: acute on chronic Qualified Code(s): I50.43 - Acute on chronic combined systolic (congestive) and diastolic (congestive) heart failure (5) HTN (hypertension) Code(s): I10 - ESSENTIAL (PRIMARY) HYPERTENSION Qualifiers: Hypertension type: essential hypertension Qualified Code(s): I10 - Essential (primary) hypertension (6) Hypercholesterolemia Code(s): E78.0 - PURE HYPERCHOLESTEROLEMIA * DO NOT USE * (7) IDDM (insulin dependent diabetes mellitus) Code(s): E11.9 - TYPE 2 DIABETES MELLITUS WITHOUT COMPLICATIONS; Z79.4 - PRECISION DYER (CURRENT) USE OF INSULIN (8) Uncontrolled diabetes mellitus Code(s): E11.65 - TYPE 2 DIABETES MELLITUS WITH HYPERGLYCEMIA Qualifiers: Diabetes mellitus type: type 2 Diabetes mellitus half-way insulin use: with rodent exterminator use Diabetes mellitus complication status: with hyperglycemia Qualified Code(s): E11.65 - Type 2 diabetes mellitus with hyperglycemia; Z79.4 - [facility] (current) use of insulin Visit type - Emergency Visit Emergency Visit: Yes ED Registration Date: 05/24/18 Care time: The patient presented to the Emergency Department on the above date and was hospitalized for further evaluation of their emergent condition. - New Patient This patient is new to me today: No - Critical Care Critical Care patient: Yes Total Critical Care Time (in minutes): 35 Critical Care Statement: The care of this patient involved high complexity decision making to prevent further life threatening deterioration of the patient 's condition and/or to evaluate & treat vital organ system(s) failure or risk of failure.
[2018-05-26] MEDS: ATORVASTATIN CA 10 MG TABLET (FP) PO SCH (21:43)
[2018-05-26] MEDS: CHLORHEXIDINE GLUCONATE 4% CLEANSER FOR DECOLONIZATION TP SCH (21:44)
[2018-05-27] MEDS: INSULIN (LEVEMIR) 100 UNITS/ML UNITS SQ SCH ×2 (06:36→21:55)
[2018-05-27] MEDS: INSULIN SLIDING SCALE (NOVOLOG) 1 VIAL SQ SCH ×3 (06:37→17:38)
[2018-05-27 07:01] LABS: BASO % 0.7 % (0-2.0); EOS % 5.3 % (0-4.5); HEMATOCRIT 28.3 % (32.4-45.2); HEMOGLOBIN 8.9 GM/dL (10.7-15.3); LYMPH % 27.3 % (8-40); MCH 21.9 pg (25.7-33.7); MCHC 31.5 g/dl (32.0-36.0); MEAN CELL VOLUME 69.5 fl (80-96); MONO % 8.8 % (3.8-10.2); NEUT % 57.9 % (42.8-82.8); PLATELET COUNT 186 K/MM3 (134-434); RBC 4.07 M/mm3 (3.60-5.2); WHITE BLOOD COUNT 6.3 K/mm3 (4.0-10.0)
[2018-05-27 07:23] LABS: ANION GAP 6 (8-16); BLOOD UREA NITROGEN 38 mg/dL (7-18); CALCIUM 8.5 mg/dL (8.5-10.1); CHLORIDE 105 mmol/L (98-107); CO2 33 mmol/L (21-32); GLUCOSE,RANDOM 248 mg/dL (74-106); MAGNESIUM 1.6 mg/dL (1.8-2.4); POTASSIUM 4.7 mmol/L (3.5-5.1); SODIUM 144 mmol/L (136-145)
[2018-05-27 07:25] LABS: PHOSPHOROUS 4.2 mg/dL (2.5-4.9)
[2018-05-27] MEDS ORDERED: INSULIN (LEVEMIR) 100 UNITS/ML UNITS SQ ONE (07:41)
[2018-05-27] MEDS ORDERED: PT OWN MED DRAWER 7, Y5N ONE (07:42)
[2018-05-27] MEDS ORDERED: FUROSEMIDE 40 MG/4 ML INJECTABLE VIAL IVPUSH SCH (10:00)
--- NOTE | 2018-05-27 10:48 | PN ---
Progress Note, Physician History of Present Illness: Dyspnea improving with diuresis. She denies chest pain, palpitations, paroxysmal nocturnal dyspnea, orthopnea or LE edema. Legs are wrapped. - Current Medication List Current Medications: Active Medications Allopurinol (Zyloprim -) 100 mg PO DAILY [facility] Amlodipine Besylate (Norvasc -) 5 mg PO DAILY [facility] Aspirin (Asa -) 81 mg PO DAILY [facility] Last Admin: 05/26/18 09:48 Dose: 81 mg Atorvastatin Calcium (Lipitor -) 10 mg PO HS [facility] Last Admin: 05/26/18 21:43 Dose: 10 mg Carvedilol (Coreg -) 12.5 mg PO BID [facility] Last Admin: 05/26/18 21:43 Dose: 12.5 mg Chlorhexidine Gluconate (Hibiclens For Decolonization -) 1 applic TP HS [facility] Last Admin: 05/26/18 21:44 Dose: 1 applic Furosemide (Lasix Injection -) 40 mg IVPUSH DAILY [facility] Heparin Sodium (Porcine) (Heparin -) 5,000 unit SQ BID [facility] Last Admin: 05/26/18 21:44 Dose: 5,000 unit Insulin Aspart (Novolog Vial Sliding Scale -) 1 vial SQ TIDAC [facility]; Protocol Last Admin: 05/27/18 06:37 Dose: 4 units Insulin Detemir (Levemir Vial) 22 units SQ BID@0700,2200 [facility] Last Admin: 05/27/18 06:36 Dose: 22 units Mupirocin (Bactroban Ointment (For Decolonization) -) 1 applic NS BID [facility] Stop: 05/29/18 21:59 Last Admin: 05/26/18 21:39 Dose: Not Given Pantoprazole Sodium (Protonix -) 20 mg PO DAILY [facility] Sevelamer Carbonate (Renvela -) 800 mg PO TIDCM [facility] Last Admin: 05/26/18 17:26 Dose: 800 mg Spironolactone (Aldactone -) 25 mg PO DAILY [facility] Last Admin: 05/26/18 10:58 Dose: 25 mg Valsartan (Diovan -) 40 mg PO DAILY [facility] Last Admin: 05/26/18 09:49 Dose: 40 mg - Objective Vital Signs: Vital Signs Temperature 98.0 F 05/27/18 05:44 Pulse Rate 71 05/27/18 05:44 Respiratory Rate 20 05/27/18 05:44 Blood Pressure 131/61 05/27/18 05:44 O2 Sat by Pulse Oximetry (%) 99 05/26/18 21:00 Constitutional: Yes: No Distress, Calm Neck: Yes: Supple Cardiovascular: Yes: Regular Rate and Rhythm Respiratory: Yes: Regular, Diminished Gastrointestinal: Yes: Normal Bowel Sounds, Soft Edema: Yes (Legs wrapped) Edema: LLE: Trace, RLE: Trace Labs: CBC, BMP 05/27/18 06:30 05/27/18 06:30 INR, PTT INR 1.11 (0.82-1.09) 05/24/18 13:19 Problem List - Problems (1) Pulmonary edema Code(s): J81.1 - CHRONIC PULMONARY EDEMA Qualifiers: Chronicity: acute Qualified Code(s): J81.0 - Acute pulmonary edema (2) SOB (shortness of breath) on exertion Code(s): R06.02 - SHORTNESS OF BREATH (3) Acute on chronic renal insufficiency Code(s): N28.9 - DISORDER OF KIDNEY AND URETER, UNSPECIFIED; N18.9 - CHRONIC KIDNEY DISEASE, UNSPECIFIED (4) Biventricular ICD (implantable cardioverter-defibrillator) in place Code(s): Z95.810 - PRESENCE OF AUTOMATIC (IMPLANTABLE) CARDIAC DEFIBRILLATOR (5) CHF (congestive heart failure) Code(s): I50.9 - HEART FAILURE, UNSPECIFIED Qualifiers: Heart failure type: combined systolic and diastolic Heart failure chronicity: acute on chronic Qualified Code(s): I50.43 - Acute on chronic combined systolic (congestive) and diastolic (congestive) heart failure (6) HTN (hypertension) Code(s): I10 - ESSENTIAL (PRIMARY) HYPERTENSION Qualifiers: Hypertension type: essential hypertension Qualified Code(s): I10 - Essential (primary) hypertension (7) History of percutaneous coronary intervention Code(s): Z98.89 - OTHER SPECIFIED POSTPROCEDURAL STATES * DO NOT USE * (8) Hypercholesterolemia Code(s): E78.0 - PURE HYPERCHOLESTEROLEMIA * DO NOT USE * (9) IDDM (insulin dependent diabetes mellitus) Code(s): E11.9 - TYPE 2 DIABETES MELLITUS WITHOUT COMPLICATIONS; Z79.4 - ASSISTED (CURRENT) USE OF INSULIN (10) Anemia Code(s): D64.9 - ANEMIA, UNSPECIFIED Qualifiers: Anemia type: due to chronic kidney disease Assessment/Plan March 2018 Echo: Mild-mod decreased LVEF 40-45%, pacemaker lead, mild MR, TR, pulm HTN 1. Acute on chronic LV diastolic/systolic failure pulmonary HTN resolving 2. CAD s/p PCI/stent, angina pectoris 3. 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 HTN/HCVD 6. Insulin-dependent type 2 diabetes mellitus 7. Hypercholesterolemia 8. CKD PLAN: 1. Resume oral diuresis with monitor diuretic response, renal function and electrolytes 2. Continue Carvedilol 12.5 bid, Norvasc 5 qd, Valsartan 40 qd, Lipitor 10 qhs, ASA 81 qd and Spironolactone 25 qd 3. DVT and GI prophylaxis 4. OOB to chair and ambulate as tolerated
--- NOTE | 2018-05-27 10:53 | PN ---
Progress Note (short form) - Note Progress Note: patient seen and examined. Chart reviewed. Unable to walk--discussed with nursing staff Need close assistance of 2--even going to bathroom. Complains of pain in the knees Vital Signs Temp 98.0 F 05/27/18 05:44 Pulse 71 05/27/18 05:44 Resp 20 05/27/18 05:44 BP 131/61 05/27/18 05:44 Pulse Ox 99 05/26/18 21:00 Intake & Output 05/26/18 05/26/18 05/27/18 11:59 23:59 11:59 Intake Total 390 600 Output Total 700 Balance -310 600 Weight 244 lb 6 oz 244 lb Intake: Oral 390 600 Output: Urine 700 Void 700 Other: Voiding Method Incontinent Bedpan # Unmeasured Voids Void 1 1 Bowel Movement No Height 5 ft 2 in Body Mass Index (BMI) 44.6 Weight Measurement Method Built in Bedscale Active Medications Allopurinol (Zyloprim -) 100 mg PO DAILY [facility] Amlodipine Besylate (Norvasc -) 5 mg PO DAILY [facility] Aspirin (Asa -) 81 mg PO DAILY [facility] Last Admin: 05/26/18 09:48 Dose: 81 mg Atorvastatin Calcium (Lipitor -) 10 mg PO HS [facility] Last Admin: 05/26/18 21:43 Dose: 10 mg Carvedilol (Coreg -) 12.5 mg PO BID [facility] Last Admin: 05/26/18 21:43 Dose: 12.5 mg Chlorhexidine Gluconate (Hibiclens For Decolonization -) 1 applic TP HS [facility] Last Admin: 05/26/18 21:44 Dose: 1 applic Furosemide (Lasix -) 40 mg PO DAILY [facility] Heparin Sodium (Porcine) (Heparin -) 5,000 unit SQ BID [facility] Last Admin: 05/26/18 21:44 Dose: 5,000 unit Insulin Aspart (Novolog Vial Sliding Scale -) 1 vial SQ TIDAC [facility]; Protocol Last Admin: 05/27/18 06:37 Dose: 4 units Insulin Detemir (Levemir Vial) 22 units SQ BID@0700,2200 [facility] Last Admin: 05/27/18 06:36 Dose: 22 units Mupirocin (Bactroban Ointment (For Decolonization) -) 1 applic NS BID [facility] Stop: 05/29/18 21:59 Last Admin: 05/26/18 21:39 Dose: Not Given Pantoprazole Sodium (Protonix -) 20 mg PO DAILY [facility] Sevelamer Carbonate (Renvela -) 800 mg PO TIDCM [facility] Last Admin: 05/26/18 17:26 Dose: 800 mg Spironolactone (Aldactone -) 25 mg PO DAILY [facility] Last Admin: 05/26/18 10:58 Dose: 25 mg Valsartan (Diovan -) 40 mg PO DAILY [facility] Last Admin: 05/26/18 09:49 Dose: 40 mg CBC, BMP 05/27/18 06:30 05/27/18 06:30 - Objective Vital Signs: Vital Signs Temperature 98.4 F 05/26/18 02:00 Pulse Rate 74 05/26/18 08:00 Respiratory Rate 19 05/26/18 08:00 Blood Pressure 141/60 05/26/18 08:00 O2 Sat by Pulse Oximetry (%) 97 05/25/18 20:40 Constitutional: Yes: No Distress, Calm Cardiovascular: Yes: Regular Rate and Rhythm Respiratory: Yes: Diminished Gastrointestinal: Yes: Normal Bowel Sounds, Soft, Abdomen, Obese. No: Distention, Tenderness Edema: Yes (decreased) knees---mild tenderness present on deep palpation--- no redness/swelling Problem List - Problems (1) Pulmonary edema Code(s): J81.1 - CHRONIC PULMONARY EDEMA Qualifiers: Chronicity: acute Qualified Code(s): J81.0 - Acute pulmonary edema (2) Arthritis Code(s): M19.90 - UNSPECIFIED OSTEOARTHRITIS, UNSPECIFIED SITE (3) SOB (shortness of breath) on exertion Code(s): R06.02 - SHORTNESS OF BREATH (4) HTN (hypertension) Code(s): I10 - ESSENTIAL (PRIMARY) HYPERTENSION Qualifiers: Hypertension type: essential hypertension Qualified Code(s): I10 - Essential (primary) hypertension (5) IDDM (insulin dependent diabetes mellitus) Code(s): E11.9 - TYPE 2 DIABETES MELLITUS WITHOUT COMPLICATIONS; Z79.4 - VICE PRINCIPAL (CURRENT) USE OF INSULIN (6) Renal insufficiency Code(s): N28.9 - DISORDER OF KIDNEY AND URETER, UNSPECIFIED Assessment/Plan clinically stable Continue present care IV lasix daily monitor renal function monitor blood sugars pain control PT eval heparin sc for DVT prophylaxis Will consult orthopedics also----pain in leg likely related to knees Will follow Discussed with nursing staff also
[2018-05-27] MEDS: ALLOPURINOL 100 MG TABLET (FP) PO SCH (11:15)
[2018-05-27] MEDS: SEVELAMER CARBONATE 800 MG TAB (FP) PO SCH ×3 (11:16→17:43)
[2018-05-27] MEDS: SPIRONOLACTONE 25 MG TABLET (FP) PO SCH (11:16)
[2018-05-27] MEDS: amLODIPine BESYLATE 5 MG TABLET (FP) PO SCH (11:16)
[2018-05-27] MEDS: VALSARTAN 40 MG TABLET (FP) PO SCH (11:16)
[2018-05-27] MEDS: PANTOPRAZOLE 20 MG TABLET (FP) PO SCH (11:16)
[2018-05-27] MEDS: CARVEDILOL 12.5 MG TABLET (FP) PO SCH ×2 (11:16→21:55)
[2018-05-27] MEDS: ASPIRIN 81 MG CHEWABLE TABLETS PO SCH (11:16)
[2018-05-27] MEDS: HEPARIN NA (PORCINE) 5,000 UNITS/ML 1ML VIAL SQ SCH ×2 (11:19→21:56)
[2018-05-27] MEDS: MUPIROCIN 2% TOPICAL OINTMENT FOR DECOLONIZATION NS SCH ×2 (11:19→21:55)
[2018-05-27] MEDS ORDERED: FUROSEMIDE 40 MG/4 ML INJECTABLE VIAL ONE (11:21)
[2018-05-27] MEDS: FUROSEMIDE 40 MG/4 ML INJECTABLE VIAL IVPUSH SCH (11:36)
--- NOTE | 2018-05-27 13:28 | PN ---
Progress Note (short form) - Note Progress Note: PULMONARY VSS/AFEBRILE OFFERS NO COMPLAINTS ANICTERIC DISTANT BUT CLEAR BREATH SOUNDS S1S2 BS+ NO EDEMA LABS/MEDS/NOTES/IMAGES NOTED ASSESSMENT AND PLAN: Acute on Chronic Systolic Heart Failure Pulmonary HTN CAD DM HTN Hyperlipidemia CKD - continue lasix - monitor urine output, creatinine - daily weights - beta sonny - add DENISE-I - DVT prophylaxsis Mercedez COSBY MD
[2018-05-27] MEDS: CHLORHEXIDINE GLUCONATE 4% CLEANSER FOR DECOLONIZATION TP SCH (21:55)
[2018-05-27] MEDS: ATORVASTATIN CA 10 MG TABLET (FP) PO SCH (21:55)
[2018-05-28] MEDS ORDERED: INSULIN (LEVEMIR) 100 UNITS/ML UNITS SQ ONE (06:30)
[2018-05-28] MEDS: INSULIN (LEVEMIR) 100 UNITS/ML UNITS SQ SCH ×2 (06:31→21:34)
[2018-05-28] MEDS: INSULIN SLIDING SCALE (NOVOLOG) 1 VIAL SQ SCH ×3 (06:32→17:11)
[2018-05-28] MEDS: SEVELAMER CARBONATE 800 MG TAB (FP) PO SCH ×3 (08:03→17:14)
[2018-05-28 08:17] LABS: EOS % 5.2 % (0-4.5); HEMATOCRIT 28.3 % (32.4-45.2); MCH 22.1 pg (25.7-33.7); MCHC 31.8 g/dl (32.0-36.0); MEAN CELL VOLUME 69.4 fl (80-96); MEAN PLT VOLUME 10.5 fl (7.5-11.1); MONO % 10.1 % (3.8-10.2); NEUT % 57.7 % (42.8-82.8); PLATELET COUNT 180 K/MM3 (134-434); RBC 4.07 M/mm3 (3.60-5.2); RDW 15.3 % (11.6-15.6); WHITE BLOOD COUNT 6.3 K/mm3 (4.0-10.0)
[2018-05-28 09:22] LABS: CHLORIDE 105 mmol/L (98-107); POTASSIUM 4.4 mmol/L (3.5-5.1); SODIUM 145 mmol/L (136-145)
[2018-05-28 09:47] LABS: ALBUMIN 2.7 g/dl (3.4-5.0); ALK PHOS 131 U/L (45-117); ANION GAP 5 (8-16); BILIRUBIN,TOTAL 0.2 mg/dL (0.2-1.0); BLOOD UREA NITROGEN 37 mg/dL (7-18); CALCIUM 8.7 mg/dL (8.5-10.1); CO2 35 mmol/L (21-32); CREATININE 1.9 mg/dL (0.55-1.02); GLUCOSE,RANDOM 199 mg/dL (74-106); SGOT/AST 16 U/L (15-37); SGPT/ALT 16 U/L (12-78); TOT PROT 6.2 g/dl (6.4-8.2); URIC ACID 5.6 mg/dL (2.6-7.2)
[2018-05-28] MEDS: VALSARTAN 40 MG TABLET (FP) PO SCH (10:50)
[2018-05-28] MEDS: FUROSEMIDE 40 MG TABLET (FP) PO SCH (10:50)
[2018-05-28] MEDS: SPIRONOLACTONE 25 MG TABLET (FP) PO SCH (10:50)
[2018-05-28] MEDS: ASPIRIN 81 MG CHEWABLE TABLETS PO SCH (10:50)
[2018-05-28] MEDS: PANTOPRAZOLE 20 MG TABLET (FP) PO SCH (10:50)
[2018-05-28] MEDS: amLODIPine BESYLATE 5 MG TABLET (FP) PO SCH (10:50)
[2018-05-28] MEDS: HEPARIN NA (PORCINE) 5,000 UNITS/ML 1ML VIAL SQ SCH ×2 (10:50→21:34)
[2018-05-28] MEDS: ALLOPURINOL 100 MG TABLET (FP) PO SCH (10:50)
[2018-05-28] MEDS: CARVEDILOL 12.5 MG TABLET (FP) PO SCH ×2 (10:50→21:34)
[2018-05-28] MEDS: MUPIROCIN 2% TOPICAL OINTMENT FOR DECOLONIZATION NS SCH ×2 (10:51→21:33)
[2018-05-28] MEDS ORDERED: traMADol HCL 50 MG TABLET PO PRN (11:43)
--- NOTE | 2018-05-28 11:43 | PN ---
Progress Note, Physician Chief Complaint: has pain in right leg, knee - Current Medication List Current Medications: Active Medications Allopurinol (Zyloprim -) 100 mg PO DAILY [facility] Last Admin: 05/28/18 10:50 Dose: 100 mg Amlodipine Besylate (Norvasc -) 5 mg PO DAILY [facility] Last Admin: 05/28/18 10:50 Dose: 5 mg Aspirin (Asa -) 81 mg PO DAILY [facility] Last Admin: 05/28/18 10:50 Dose: 81 mg Atorvastatin Calcium (Lipitor -) 10 mg PO HS [facility] Last Admin: 05/27/18 21:55 Dose: 10 mg Carvedilol (Coreg -) 12.5 mg PO BID [facility] Last Admin: 05/28/18 10:50 Dose: 12.5 mg Chlorhexidine Gluconate (Hibiclens For Decolonization -) 1 applic TP HS [facility] Last Admin: 05/27/18 21:55 Dose: 1 applic Furosemide (Lasix -) 40 mg PO DAILY [facility] Last Admin: 05/28/18 10:50 Dose: 40 mg Heparin Sodium (Porcine) (Heparin -) 5,000 unit SQ BID [facility] Last Admin: 05/28/18 10:50 Dose: 5,000 unit Insulin Aspart (Novolog Vial Sliding Scale -) 1 vial SQ TIDAC [facility]; Protocol Last Admin: 05/28/18 06:32 Dose: 4 units Insulin Detemir (Levemir Vial) 22 units SQ BID@0700,2200 [facility] Last Admin: 05/28/18 06:31 Dose: 22 units Mupirocin (Bactroban Ointment (For Decolonization) -) 1 applic NS BID [facility] Stop: 05/29/18 21:59 Last Admin: 05/28/18 10:51 Dose: Not Given Pantoprazole Sodium (Protonix -) 20 mg PO DAILY [facility] Last Admin: 05/28/18 10:50 Dose: 20 mg Sevelamer Carbonate (Renvela -) 800 mg PO TIDCM [facility] Last Admin: 05/28/18 08:03 Dose: 800 mg Spironolactone (Aldactone -) 25 mg PO DAILY [facility] Last Admin: 05/28/18 10:50 Dose: 25 mg Valsartan (Diovan -) 40 mg PO DAILY [facility] Last Admin: 05/28/18 10:50 Dose: 40 mg - Objective Vital Signs: Vital Signs Temperature 98.1 F 05/28/18 10:49 Pulse Rate 75 05/28/18 10:49 Respiratory Rate 19 05/28/18 10:49 Blood Pressure 131/62 05/28/18 10:49 O2 Sat by Pulse Oximetry (%) 97 05/27/18 21:00 Constitutional: Yes: No Distress, Calm Cardiovascular: Yes: Regular Rate and Rhythm Respiratory: Yes: Diminished Gastrointestinal: Yes: Normal Bowel Sounds, Soft. No: Tenderness Edema: No Labs: CBC, BMP 05/28/18 07:45 05/28/18 07:45 INR, PTT INR 1.11 (0.82-1.09) 05/24/18 13:19 Problem List - Problems (1) Pulmonary edema Code(s): J81.1 - CHRONIC PULMONARY EDEMA Qualifiers: Chronicity: acute Qualified Code(s): J81.0 - Acute pulmonary edema (2) Arthritis Code(s): M19.90 - UNSPECIFIED OSTEOARTHRITIS, UNSPECIFIED SITE (3) SOB (shortness of breath) on exertion Code(s): R06.02 - SHORTNESS OF BREATH (4) HTN (hypertension) Code(s): I10 - ESSENTIAL (PRIMARY) HYPERTENSION Qualifiers: Hypertension type: essential hypertension Qualified Code(s): I10 - Essential (primary) hypertension (5) IDDM (insulin dependent diabetes mellitus) Code(s): E11.9 - TYPE 2 DIABETES MELLITUS WITHOUT COMPLICATIONS; Z79.4 - BOAT RIDE OPERATOR (CURRENT) USE OF INSULIN (6) Renal insufficiency Code(s): N28.9 - DISORDER OF KIDNEY AND URETER, UNSPECIFIED Assessment/Plan PLAN IV lasix daily Check renal function--same monitor blood sugars cardiology evaluation appreciated Ortho eval pain control PT eval heparin sc for DVT prophylaxis
--- NOTE | 2018-05-28 13:22 | PN ---
Progress Note (short form) - Note Progress Note: PULMONARY States breathing better today. No chest pain. Vital Signs Period Temp Pulse Resp BP Sys/Etienne Pulse Ox Last 24 Hr 97.8 F-98.4 F 70-88 18-20 126-145/60-78 97 Gen: NAD at rest Heart: RRR Lung: decreased breath sounds at the bases Abd: soft, nontender Ext: no edema CBC, BMP 05/28/18 07:45 05/28/18 07:45 Active Medications Allopurinol (Zyloprim -) 100 mg PO DAILY [facility] Last Admin: 05/28/18 10:50 Dose: 100 mg Amlodipine Besylate (Norvasc -) 5 mg PO DAILY [facility] Last Admin: 05/28/18 10:50 Dose: 5 mg Aspirin (Asa -) 81 mg PO DAILY [facility] Last Admin: 05/28/18 10:50 Dose: 81 mg Atorvastatin Calcium (Lipitor -) 10 mg PO HS [facility] Last Admin: 05/27/18 21:55 Dose: 10 mg Carvedilol (Coreg -) 12.5 mg PO BID [facility] Last Admin: 05/28/18 10:50 Dose: 12.5 mg Chlorhexidine Gluconate (Hibiclens For Decolonization -) 1 applic TP HS [facility] Last Admin: 05/27/18 21:55 Dose: 1 applic Furosemide (Lasix -) 40 mg PO DAILY [facility] Last Admin: 05/28/18 10:50 Dose: 40 mg Heparin Sodium (Porcine) (Heparin -) 5,000 unit SQ BID [facility] Last Admin: 05/28/18 10:50 Dose: 5,000 unit Insulin Aspart (Novolog Vial Sliding Scale -) 1 vial SQ TIDAC [facility]; Protocol Last Admin: 05/28/18 12:25 Dose: 4 units Insulin Detemir (Levemir Vial) 22 units SQ BID@0700,2200 [facility] Last Admin: 05/28/18 06:31 Dose: 22 units Mupirocin (Bactroban Ointment (For Decolonization) -) 1 applic NS BID [facility] Stop: 05/29/18 21:59 Last Admin: 05/28/18 10:51 Dose: Not Given Pantoprazole Sodium (Protonix -) 20 mg PO DAILY [facility] Last Admin: 05/28/18 10:50 Dose: 20 mg Sevelamer Carbonate (Renvela -) 800 mg PO TIDCM [facility] Last Admin: 05/28/18 12:27 Dose: 800 mg Spironolactone (Aldactone -) 25 mg PO DAILY [facility] Last Admin: 05/28/18 10:50 Dose: 25 mg Tramadol HCl (Ultram -) 50 mg PO Q6H PRN PRN Reason: PAIN LEVEL 6-10 Valsartan (Diovan -) 40 mg PO DAILY [facility] Last Admin: 05/28/18 10:50 Dose: 40 mg A/P Acute on Chronic Systolic Heart Failure Pulmonary HTN CAD DM HTN Hyperlipidemia CKD - continue lasix - monitor urine output, creatinine - daily weights - beta sonny - DVT prophylaxis
--- NOTE | 2018-05-28 13:26 | PN ---
Progress Note, Physician History of Present Illness: Dyspnea resolved with diuresis. She denies chest pain, palpitations, paroxysmal nocturnal dyspnea, orthopnea or LE edema. Legs are wrapped. - Current Medication List Current Medications: Active Medications Allopurinol (Zyloprim -) 100 mg PO DAILY [facility] Last Admin: 05/28/18 10:50 Dose: 100 mg Amlodipine Besylate (Norvasc -) 5 mg PO DAILY [facility] Last Admin: 05/28/18 10:50 Dose: 5 mg Aspirin (Asa -) 81 mg PO DAILY [facility] Last Admin: 05/28/18 10:50 Dose: 81 mg Atorvastatin Calcium (Lipitor -) 10 mg PO HS [facility] Last Admin: 05/27/18 21:55 Dose: 10 mg Carvedilol (Coreg -) 12.5 mg PO BID [facility] Last Admin: 05/28/18 10:50 Dose: 12.5 mg Chlorhexidine Gluconate (Hibiclens For Decolonization -) 1 applic TP HS [facility] Last Admin: 05/27/18 21:55 Dose: 1 applic Furosemide (Lasix -) 40 mg PO DAILY [facility] Last Admin: 05/28/18 10:50 Dose: 40 mg Heparin Sodium (Porcine) (Heparin -) 5,000 unit SQ BID [facility] Last Admin: 05/28/18 10:50 Dose: 5,000 unit Insulin Aspart (Novolog Vial Sliding Scale -) 1 vial SQ TIDAC [facility]; Protocol Last Admin: 05/28/18 12:25 Dose: 4 units Insulin Detemir (Levemir Vial) 22 units SQ BID@0700,2200 [facility] Last Admin: 05/28/18 06:31 Dose: 22 units Mupirocin (Bactroban Ointment (For Decolonization) -) 1 applic NS BID [facility] Stop: 05/29/18 21:59 Last Admin: 05/28/18 10:51 Dose: Not Given Pantoprazole Sodium (Protonix -) 20 mg PO DAILY [facility] Last Admin: 05/28/18 10:50 Dose: 20 mg Sevelamer Carbonate (Renvela -) 800 mg PO TIDCM [facility] Last Admin: 05/28/18 12:27 Dose: 800 mg Spironolactone (Aldactone -) 25 mg PO DAILY [facility] Last Admin: 05/28/18 10:50 Dose: 25 mg Tramadol HCl (Ultram -) 50 mg PO Q6H PRN PRN Reason: PAIN LEVEL 6-10 Valsartan (Diovan -) 40 mg PO DAILY [facility] Last Admin: 05/28/18 10:50 Dose: 40 mg - Objective Vital Signs: Vital Signs Temperature 98.1 F 05/28/18 10:49 Pulse Rate 75 05/28/18 10:49 Respiratory Rate 19 05/28/18 10:49 Blood Pressure 131/62 05/28/18 10:49 O2 Sat by Pulse Oximetry (%) 97 05/27/18 21:00 Constitutional: Yes: No Distress, Calm Neck: Yes: Supple Cardiovascular: Yes: Regular Rate and Rhythm Respiratory: Yes: Regular, Diminished, On Nasal O2 Gastrointestinal: Yes: Normal Bowel Sounds, Soft, Abdomen, Obese Edema: Yes Edema: LLE: Trace, RLE: Trace Labs: CBC, BMP 05/28/18 07:45 05/28/18 07:45 INR, PTT INR 1.11 (0.82-1.09) 05/24/18 13:19 Problem List - Problems (1) Pulmonary edema Code(s): J81.1 - CHRONIC PULMONARY EDEMA Qualifiers: Chronicity: acute Qualified Code(s): J81.0 - Acute pulmonary edema (2) SOB (shortness of breath) on exertion Code(s): R06.02 - SHORTNESS OF BREATH (3) Acute on chronic renal insufficiency Code(s): N28.9 - DISORDER OF KIDNEY AND URETER, UNSPECIFIED; N18.9 - CHRONIC KIDNEY DISEASE, UNSPECIFIED (4) Biventricular ICD (implantable cardioverter-defibrillator) in place Code(s): Z95.810 - PRESENCE OF AUTOMATIC (IMPLANTABLE) CARDIAC DEFIBRILLATOR (5) CHF (congestive heart failure) Code(s): I50.9 - HEART FAILURE, UNSPECIFIED Qualifiers: Heart failure type: combined systolic and diastolic Heart failure chronicity: acute on chronic Qualified Code(s): I50.43 - Acute on chronic combined systolic (congestive) and diastolic (congestive) heart failure (6) HTN (hypertension) Code(s): I10 - ESSENTIAL (PRIMARY) HYPERTENSION Qualifiers: Hypertension type: essential hypertension Qualified Code(s): I10 - Essential (primary) hypertension (7) History of percutaneous coronary intervention Code(s): Z98.89 - OTHER SPECIFIED POSTPROCEDURAL STATES * DO NOT USE * (8) Hypercholesterolemia Code(s): E78.0 - PURE HYPERCHOLESTEROLEMIA * DO NOT USE * (9) IDDM (insulin dependent diabetes mellitus) Code(s): E11.9 - TYPE 2 DIABETES MELLITUS WITHOUT COMPLICATIONS; Z79.4 - ASSISTED (CURRENT) USE OF INSULIN (10) Anemia Code(s): D64.9 - ANEMIA, UNSPECIFIED Qualifiers: Anemia type: due to chronic kidney disease Assessment/Plan March 2018 Echo: Mild-mod decreased LVEF 40-45%, pacemaker lead, mild MR, TR, pulm HTN 1. Acute on chronic LV diastolic/systolic failure pulmonary HTN resolved 2. CAD s/p PCI/stent, angina pectoris 3. 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 HTN/HCVD 6. Insulin-dependent type 2 diabetes mellitus 7. Hypercholesterolemia 8. CKD PLAN: 1. Continue Lasix 40 qd with monitor diuretic response, renal function and electrolytes 2. Continue Carvedilol 12.5 bid, Norvasc 5 qd, Valsartan 40 qd, Lipitor 10 qhs, ASA 81 qd and Spironolactone 25 qd 3. DVT and GI prophylaxis 4. OOB to chair and ambulate as tolerated 5. D/c planning
[2018-05-28] MEDS: CHLORHEXIDINE GLUCONATE 4% CLEANSER FOR DECOLONIZATION TP SCH (21:34)
[2018-05-28] MEDS: ATORVASTATIN CA 10 MG TABLET (FP) PO SCH (21:35)
[2018-05-29] MEDS: INSULIN (LEVEMIR) 100 UNITS/ML UNITS SQ SCH ×2 (06:33→21:57)
[2018-05-29] MEDS: INSULIN SLIDING SCALE (NOVOLOG) 1 VIAL SQ SCH ×3 (06:33→17:04)
[2018-05-29] MEDS ORDERED: INSULIN (LEVEMIR) 100 UNITS/ML UNITS SQ ONE (06:39)
[2018-05-29] MEDS ORDERED: INSULIN (NOVOLOG) ASPART 100 UNITS/ML 10ML VIAL ONE (06:39)
[2018-05-29] MEDS: SEVELAMER CARBONATE 800 MG TAB (FP) PO SCH ×3 (08:31→17:04)
--- NOTE | 2018-05-29 10:28 | PN ---
Progress Note, Physician Chief Complaint: has pain in right leg, knee- better with pain meds no sob - Current Medication List Current Medications: Active Medications Allopurinol (Zyloprim -) 100 mg PO DAILY [facility] Last Admin: 05/28/18 10:50 Dose: 100 mg Amlodipine Besylate (Norvasc -) 5 mg PO DAILY [facility] Last Admin: 05/28/18 10:50 Dose: 5 mg Aspirin (Asa -) 81 mg PO DAILY [facility] Last Admin: 05/28/18 10:50 Dose: 81 mg Atorvastatin Calcium (Lipitor -) 10 mg PO HS [facility] Last Admin: 05/28/18 21:35 Dose: 10 mg Carvedilol (Coreg -) 12.5 mg PO BID [facility] Last Admin: 05/28/18 21:34 Dose: 12.5 mg Chlorhexidine Gluconate (Hibiclens For Decolonization -) 1 applic TP HS [facility] Last Admin: 05/28/18 21:34 Dose: Not Given Furosemide (Lasix -) 40 mg PO DAILY [facility] Last Admin: 05/28/18 10:50 Dose: 40 mg Heparin Sodium (Porcine) (Heparin -) 5,000 unit SQ BID [facility] Last Admin: 05/28/18 21:34 Dose: 5,000 unit Insulin Aspart (Novolog Vial Sliding Scale -) 1 vial SQ TIDAC [facility]; Protocol Last Admin: 05/29/18 06:33 Dose: 4 units Insulin Detemir (Levemir Vial) 22 units SQ BID@0700,2200 [facility] Last Admin: 05/29/18 06:33 Dose: 22 units Mupirocin (Bactroban Ointment (For Decolonization) -) 1 applic NS BID [facility] Stop: 05/29/18 21:59 Last Admin: 05/28/18 21:33 Dose: Not Given Pantoprazole Sodium (Protonix -) 20 mg PO DAILY [facility] Last Admin: 05/28/18 10:50 Dose: 20 mg Sevelamer Carbonate (Renvela -) 800 mg PO TIDCM [facility] Last Admin: 05/29/18 08:31 Dose: 800 mg Spironolactone (Aldactone -) 25 mg PO DAILY [facility] Last Admin: 05/28/18 10:50 Dose: 25 mg Tramadol HCl (Ultram -) 50 mg PO Q6H PRN PRN Reason: PAIN LEVEL 6-10 Valsartan (Diovan -) 40 mg PO DAILY [facility] Last Admin: 05/28/18 10:50 Dose: 40 mg - Objective Vital Signs: Vital Signs Temperature 98 F 05/29/18 05:10 Pulse Rate 72 05/29/18 05:10 Respiratory Rate 20 05/29/18 05:10 Blood Pressure 135/71 05/29/18 05:10 O2 Sat by Pulse Oximetry (%) 97 05/28/18 21:00 Constitutional: Yes: No Distress, Calm Cardiovascular: Yes: Regular Rate and Rhythm Respiratory: Yes: Diminished Gastrointestinal: Yes: Normal Bowel Sounds, Soft, Abdomen, Obese. No: Tenderness Edema: No Labs: CBC, BMP 05/28/18 07:45 05/28/18 07:45 INR, PTT INR 1.11 (0.82-1.09) 05/24/18 13:19 Problem List - Problems (1) Pulmonary edema Code(s): J81.1 - CHRONIC PULMONARY EDEMA Qualifiers: Chronicity: acute Qualified Code(s): J81.0 - Acute pulmonary edema (2) Arthritis Code(s): M19.90 - UNSPECIFIED OSTEOARTHRITIS, UNSPECIFIED SITE (3) SOB (shortness of breath) on exertion Code(s): R06.02 - SHORTNESS OF BREATH (4) HTN (hypertension) Code(s): I10 - ESSENTIAL (PRIMARY) HYPERTENSION Qualifiers: Hypertension type: essential hypertension Qualified Code(s): I10 - Essential (primary) hypertension (5) IDDM (insulin dependent diabetes mellitus) Code(s): E11.9 - TYPE 2 DIABETES MELLITUS WITHOUT COMPLICATIONS; Z79.4 - BI TRI OPERATOR (CURRENT) USE OF INSULIN (6) Renal insufficiency Code(s): N28.9 - DISORDER OF KIDNEY AND URETER, UNSPECIFIED Assessment/Plan PLAN PO lasix daily Check renal function--same monitor blood sugars ortho eval pain control PT eval heparin sc for DVT prophylaxis pt agreed SNF
[2018-05-29] MEDS ORDERED: PT OWN MED DRAWER 7, Y5N ONE (10:29)
[2018-05-29] MEDS: amLODIPine BESYLATE 5 MG TABLET (FP) PO SCH (10:34)
[2018-05-29] MEDS: HEPARIN NA (PORCINE) 5,000 UNITS/ML 1ML VIAL SQ SCH ×2 (10:34→21:57)
[2018-05-29] MEDS: VALSARTAN 40 MG TABLET (FP) PO SCH (10:34)
[2018-05-29] MEDS: FUROSEMIDE 40 MG TABLET (FP) PO SCH (10:34)
[2018-05-29] MEDS: PANTOPRAZOLE 20 MG TABLET (FP) PO SCH (10:34)
[2018-05-29] MEDS: ALLOPURINOL 100 MG TABLET (FP) PO SCH (10:35)
[2018-05-29] MEDS: CARVEDILOL 12.5 MG TABLET (FP) PO SCH ×2 (10:35→21:57)
[2018-05-29] MEDS: ASPIRIN 81 MG CHEWABLE TABLETS PO SCH (10:35)
[2018-05-29] MEDS: SPIRONOLACTONE 25 MG TABLET (FP) PO SCH (10:35)
[2018-05-29] MEDS: MUPIROCIN 2% TOPICAL OINTMENT FOR DECOLONIZATION NS SCH (10:35)
--- NOTE | 2018-05-29 11:20 | PN ---
Progress Note (short form) - Note Progress Note: PULMONARY Denies shortness of breath or chest pain. Vital Signs Period Temp Pulse Resp BP Sys/Etienne Pulse Ox Last 24 Hr 97.7 F-98.3 F 71-91 16-20 134-160/64-88 97 Gen: NAD at rest Heart: RRR Lung: decreased breath sounds at the bases Abd: soft, nontender Ext: no edema CBC, BMP 05/28/18 07:45 05/28/18 07:45 Active Medications Allopurinol (Zyloprim -) 100 mg PO DAILY [facility] Last Admin: 05/29/18 10:35 Dose: 100 mg Amlodipine Besylate (Norvasc -) 5 mg PO DAILY [facility] Last Admin: 05/29/18 10:34 Dose: 5 mg Aspirin (Asa -) 81 mg PO DAILY [facility] Last Admin: 05/29/18 10:35 Dose: 81 mg Atorvastatin Calcium (Lipitor -) 10 mg PO HS [facility] Last Admin: 05/28/18 21:35 Dose: 10 mg Carvedilol (Coreg -) 12.5 mg PO BID [facility] Last Admin: 05/29/18 10:35 Dose: 12.5 mg Chlorhexidine Gluconate (Hibiclens For Decolonization -) 1 applic TP HS [facility] Last Admin: 05/28/18 21:34 Dose: Not Given Furosemide (Lasix -) 40 mg PO DAILY [facility] Last Admin: 05/29/18 10:34 Dose: 40 mg Heparin Sodium (Porcine) (Heparin -) 5,000 unit SQ BID [facility] Last Admin: 05/29/18 10:34 Dose: 5,000 unit Insulin Aspart (Novolog Vial Sliding Scale -) 1 vial SQ TIDAC [facility]; Protocol Last Admin: 05/29/18 06:33 Dose: 4 units Insulin Detemir (Levemir Vial) 22 units SQ BID@0700,2200 [facility] Last Admin: 05/29/18 06:33 Dose: 22 units Mupirocin (Bactroban Ointment (For Decolonization) -) 1 applic NS BID [facility] Stop: 05/29/18 21:59 Last Admin: 05/29/18 10:35 Dose: Not Given Pantoprazole Sodium (Protonix -) 20 mg PO DAILY [facility] Last Admin: 05/29/18 10:34 Dose: 20 mg Sevelamer Carbonate (Renvela -) 800 mg PO TIDCM [facility] Last Admin: 05/29/18 08:31 Dose: 800 mg Spironolactone (Aldactone -) 25 mg PO DAILY [facility] Last Admin: 05/29/18 10:35 Dose: 25 mg Tramadol HCl (Ultram -) 50 mg PO Q6H PRN PRN Reason: PAIN LEVEL 6-10 Valsartan (Diovan -) 40 mg PO DAILY [facility] Last Admin: 05/29/18 10:34 Dose: 40 mg A/P Acute on Chronic Systolic Heart Failure Pulmonary HTN CAD DM HTN Hyperlipidemia CKD - continue lasix, aldactone - monitor urine output, creatinine - daily weights - beta sonny, ARB - DVT prophylaxis
--- NOTE | 2018-05-29 13:44 | CONSULT ---
Consult - text type - Consultation Consultation Note: FULL CONSULT DICTATED PLAN: XRAYS B KNEES ORDERED, NSAIDS IF MEDICALLY OK,PT
--- NOTE | 2018-05-29 14:11 | PN ---
Progress Note, Physician History of Present Illness: Dyspnea resolved with diuresis. She denies chest pain, palpitations, paroxysmal nocturnal dyspnea, orthopnea or LE edema. Legs are wrapped. - Current Medication List Current Medications: Active Medications Allopurinol (Zyloprim -) 100 mg PO DAILY [facility] Last Admin: 05/29/18 10:35 Dose: 100 mg Amlodipine Besylate (Norvasc -) 5 mg PO DAILY [facility] Last Admin: 05/29/18 10:34 Dose: 5 mg Aspirin (Asa -) 81 mg PO DAILY [facility] Last Admin: 05/29/18 10:35 Dose: 81 mg Atorvastatin Calcium (Lipitor -) 10 mg PO HS [facility] Last Admin: 05/28/18 21:35 Dose: 10 mg Carvedilol (Coreg -) 12.5 mg PO BID [facility] Last Admin: 05/29/18 10:35 Dose: 12.5 mg Chlorhexidine Gluconate (Hibiclens For Decolonization -) 1 applic TP HS [facility] Last Admin: 05/28/18 21:34 Dose: Not Given Furosemide (Lasix -) 40 mg PO DAILY [facility] Last Admin: 05/29/18 10:34 Dose: 40 mg Heparin Sodium (Porcine) (Heparin -) 5,000 unit SQ BID [facility] Last Admin: 05/29/18 10:34 Dose: 5,000 unit Insulin Aspart (Novolog Vial Sliding Scale -) 1 vial SQ TIDAC [facility]; Protocol Last Admin: 05/29/18 11:42 Dose: 2 units Insulin Detemir (Levemir Vial) 22 units SQ BID@0700,2200 [facility] Last Admin: 05/29/18 06:33 Dose: 22 units Mupirocin (Bactroban Ointment (For Decolonization) -) 1 applic NS BID [facility] Stop: 05/29/18 21:59 Last Admin: 05/29/18 10:35 Dose: Not Given Pantoprazole Sodium (Protonix -) 20 mg PO DAILY [facility] Last Admin: 05/29/18 10:34 Dose: 20 mg Sevelamer Carbonate (Renvela -) 800 mg PO TIDCM [facility] Last Admin: 05/29/18 12:20 Dose: 800 mg Spironolactone (Aldactone -) 25 mg PO DAILY [facility] Last Admin: 05/29/18 10:35 Dose: 25 mg Tramadol HCl (Ultram -) 50 mg PO Q6H PRN PRN Reason: PAIN LEVEL 6-10 Last Admin: 05/29/18 13:52 Dose: 50 mg Valsartan (Diovan -) 40 mg PO DAILY [facility] Last Admin: 05/29/18 10:34 Dose: 40 mg - Objective Vital Signs: Vital Signs Temperature 97.7 F 05/29/18 10:00 Pulse Rate 71 05/29/18 10:00 Respiratory Rate 19 05/29/18 10:00 Blood Pressure 160/66 05/29/18 10:00 O2 Sat by Pulse Oximetry (%) 98 05/29/18 09:00 Constitutional: Yes: No Distress, Calm Neck: Yes: Supple Cardiovascular: Yes: Regular Rate and Rhythm Respiratory: Yes: Regular, Diminished, On Nasal O2 Gastrointestinal: Yes: Normal Bowel Sounds, Soft, Abdomen, Obese Edema: No Labs: CBC, BMP 05/28/18 07:45 05/28/18 07:45 INR, PTT INR 1.11 (0.82-1.09) 05/24/18 13:19 Problem List - Problems (1) Pulmonary edema Code(s): J81.1 - CHRONIC PULMONARY EDEMA Qualifiers: Chronicity: acute Qualified Code(s): J81.0 - Acute pulmonary edema (2) SOB (shortness of breath) on exertion Code(s): R06.02 - SHORTNESS OF BREATH (3) Acute on chronic renal insufficiency Code(s): N28.9 - DISORDER OF KIDNEY AND URETER, UNSPECIFIED; N18.9 - CHRONIC KIDNEY DISEASE, UNSPECIFIED (4) Biventricular ICD (implantable cardioverter-defibrillator) in place Code(s): Z95.810 - PRESENCE OF AUTOMATIC (IMPLANTABLE) CARDIAC DEFIBRILLATOR (5) CHF (congestive heart failure) Code(s): I50.9 - HEART FAILURE, UNSPECIFIED Qualifiers: Heart failure type: combined systolic and diastolic Heart failure chronicity: acute on chronic Qualified Code(s): I50.43 - Acute on chronic combined systolic (congestive) and diastolic (congestive) heart failure (6) HTN (hypertension) Code(s): I10 - ESSENTIAL (PRIMARY) HYPERTENSION Qualifiers: Hypertension type: essential hypertension Qualified Code(s): I10 - Essential (primary) hypertension (7) History of percutaneous coronary intervention Code(s): Z98.89 - OTHER SPECIFIED POSTPROCEDURAL STATES * DO NOT USE * (8) Hypercholesterolemia Code(s): E78.0 - PURE HYPERCHOLESTEROLEMIA * DO NOT USE * (9) IDDM (insulin dependent diabetes mellitus) Code(s): E11.9 - TYPE 2 DIABETES MELLITUS WITHOUT COMPLICATIONS; Z79.4 - PYTHON CONSULTANT (CURRENT) USE OF INSULIN (10) Anemia Code(s): D64.9 - ANEMIA, UNSPECIFIED Qualifiers: Anemia type: due to chronic kidney disease Assessment/Plan March 2018 Echo: Mild-mod decreased LVEF 40-45%, pacemaker lead, mild MR, TR, pulm HTN 1. Acute on chronic LV diastolic/systolic failure pulmonary HTN resolved 2. CAD s/p PCI/stent, angina pectoris 3. 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 HTN/HCVD 6. Insulin-dependent type 2 diabetes mellitus 7. Hypercholesterolemia 8. CKD PLAN: 1. Continue Lasix 40 qd with monitor diuretic response, renal function and electrolytes 2. Continue Carvedilol 12.5 bid, Norvasc 5 qd, Valsartan 40 qd, Lipitor 10 qhs, ASA 81 qd and Spironolactone 25 qd 3. DVT and GI prophylaxis 4. OOB to chair and ambulate as tolerated 5. D/c planning
--- NOTE | 2018-05-29 14:22 | CONS ---
DATE OF CONSULTATION: 05/29/2018 Orthopedic consultation at [facility]. Patient is a 73-year-old female who was recently discharged from the intensive care unit for episodes of shortness of breath has been responding to medical treatment, also was complaining of bilateral lower extremity pain, right greater than left. By reports, patient had some swelling in the right lower extremity. DVT workup was negative. Patient is feeling somewhat better but still complaining of some pain, thus necessitating an orthopedic consultation. Patient denies any recent fall or trauma, has had long history of pain in her legs. On physical exam, she has some crepitus with range of motion of both her knees, especially in the patellofemoral joint. No effusion. Good stability with varus/valgus, anterior and posterior. Negative increased varus/valgus attitude to the knees. Strength 5/5. Diffuse tenderness. No erythema, ecchymosis, swelling. Calves soft, nontender, and otherwise neurovascularly intact. No x-rays are available. IMPRESSION: Presumptive degenerative joint disease, bilateral knees. PLAN: X-rays of both knees are ordered. Patient can be on nonsteroidals if okay by the medical doctor, and I will further advise once seeing the x-rays. In the interim, patient can begin physical therapy. GM BROWN M.D. ADELIA/[id number]
[2018-05-29] MEDS: CHLORHEXIDINE GLUCONATE 4% CLEANSER FOR DECOLONIZATION TP SCH (21:57)
[2018-05-29] MEDS: ATORVASTATIN CA 10 MG TABLET (FP) PO SCH (21:58)
[2018-05-30] MEDS: INSULIN SLIDING SCALE (NOVOLOG) 1 VIAL SQ SCH ×3 (07:01→17:37)
[2018-05-30] MEDS: INSULIN (LEVEMIR) 100 UNITS/ML UNITS SQ SCH ×2 (07:01→22:09)
[2018-05-30] MEDS ORDERED: INSULIN (NOVOLOG) ASPART 100 UNITS/ML 10ML VIAL ONE (07:39)
--- NOTE | 2018-05-30 08:30 | PN ---
Progress Note (short form) - Note Progress Note: Ortho Pt seen and examined. c/o b/l knee pain R>L Selected Entries 05/30/18 06:00 Temperature 98.1 F Pulse Rate 89 Respiratory 20 Rate Blood Pressure 153/73 PE- + swelling, + ttp, decr rom, nvi xrays pending a/p xrays ordered PT eval wbat pain control will advise after xrays d/w Dr. Joshi
[2018-05-30] MEDS ORDERED: PT OWN MED DRAWER 7, Y5N ONE ×2 (08:48→15:32)
[2018-05-30] MEDS: SEVELAMER CARBONATE 800 MG TAB (FP) PO SCH ×3 (08:52→17:35)
[2018-05-30] MEDS: CARVEDILOL 12.5 MG TABLET (FP) PO SCH ×2 (10:38→22:09)
[2018-05-30] MEDS: FUROSEMIDE 40 MG TABLET (FP) PO SCH (10:38)
[2018-05-30] MEDS: ALLOPURINOL 100 MG TABLET (FP) PO SCH (10:38)
[2018-05-30] MEDS: PANTOPRAZOLE 20 MG TABLET (FP) PO SCH (10:38)
[2018-05-30] MEDS: amLODIPine BESYLATE 5 MG TABLET (FP) PO SCH (10:38)
[2018-05-30] MEDS: VALSARTAN 40 MG TABLET (FP) PO SCH (10:38)
[2018-05-30] MEDS: SPIRONOLACTONE 25 MG TABLET (FP) PO SCH (10:38)
[2018-05-30] MEDS: ASPIRIN 81 MG CHEWABLE TABLETS PO SCH (10:38)
[2018-05-30] MEDS: HEPARIN NA (PORCINE) 5,000 UNITS/ML 1ML VIAL SQ SCH ×2 (10:38→22:09)
--- NOTE | 2018-05-30 12:29 | PN ---
Progress Note (short form) - Note Progress Note: Pt seen/ examined chart reviewed continue to have pain in knees Ortho f/u noted- x rays ordered. c/c - constipation Vital Signs Temp 97.9 F 05/30/18 09:00 Pulse 70 05/30/18 09:00 Resp 18 05/30/18 09:00 BP 116/61 05/30/18 09:00 Pulse Ox 93 L 05/30/18 10:00 Intake & Output 05/29/18 05/30/18 05/30/18 23:59 11:59 23:59 Intake Total 1050 430 Balance 1050 430 Intake: Oral 1050 430 Other: Voiding Method Incontinent Diaper Incontinent # Unmeasured Voids Void 2 1 1 Bowel Movement No No Active Medications Allopurinol (Zyloprim -) 100 mg PO DAILY [facility] Last Admin: 05/30/18 10:38 Dose: 100 mg Amlodipine Besylate (Norvasc -) 5 mg PO DAILY [facility] Last Admin: 05/30/18 10:38 Dose: 5 mg Aspirin (Asa -) 81 mg PO DAILY [facility] Last Admin: 05/30/18 10:38 Dose: 81 mg Atorvastatin Calcium (Lipitor -) 10 mg PO HS [facility] Last Admin: 05/29/18 21:58 Dose: 10 mg Carvedilol (Coreg -) 12.5 mg PO BID [facility] Last Admin: 05/30/18 10:38 Dose: 12.5 mg Chlorhexidine Gluconate (Hibiclens For Decolonization -) 1 applic TP [facility] Last Admin: 05/29/18 21:57 Dose: Not Given Furosemide (Lasix -) 40 mg PO DAILY [facility] Last Admin: 05/30/18 10:38 Dose: 40 mg Heparin Sodium (Porcine) (Heparin -) 5,000 unit SQ BID [facility] Last Admin: 05/30/18 10:38 Dose: 5,000 unit Insulin Aspart (Novolog Vial Sliding Scale -) 1 vial SQ TIDAC [facility]; Protocol Last Admin: 05/30/18 11:36 Dose: 2 units Insulin Detemir (Levemir Vial) 22 units SQ BID@0700,2200 [facility] Last Admin: 05/30/18 07:01 Dose: 22 units Pantoprazole Sodium (Protonix -) 20 mg PO DAILY [facility] Last Admin: 05/30/18 10:38 Dose: 20 mg Sevelamer Carbonate (Renvela -) 800 mg PO TIDCM [facility] Last Admin: 05/30/18 12:19 Dose: 800 mg Spironolactone (Aldactone -) 25 mg PO DAILY [facility] Last Admin: 05/30/18 10:38 Dose: 25 mg Tramadol HCl (Ultram -) 50 mg PO Q6H PRN PRN Reason: PAIN LEVEL 6-10 Last Admin: 05/29/18 13:52 Dose: 50 mg Valsartan (Diovan -) 40 mg PO DAILY [facility] Last Admin: 05/30/18 10:38 Dose: 40 mg CBC, BMP 05/28/18 07:45 05/28/18 07:45 Physical Exam. Constitutional: Yes: No Distress, Calm. awake. comfortable Cardiovascular: Yes: Regular Rate and Rhythm Respiratory: Yes: Diminished Gastrointestinal: Yes: Normal Bowel Sounds, Soft, Abdomen, Obese. No: Tenderness Edema: No. Both knees tender to touch. No redness. Neuro- Alert/ awake Problem List - Problems (1) Pulmonary edema Code(s): J81.1 - CHRONIC PULMONARY EDEMA Qualifiers: Chronicity: acute Qualified Code(s): J81.0 - Acute pulmonary edema (2) Arthritis Code(s): M19.90 - UNSPECIFIED OSTEOARTHRITIS, UNSPECIFIED SITE (3) SOB (shortness of breath) on exertion Code(s): R06.02 - SHORTNESS OF BREATH (4) HTN (hypertension) Code(s): I10 - ESSENTIAL (PRIMARY) HYPERTENSION Qualifiers: Hypertension type: essential hypertension Qualified Code(s): I10 - Essential (primary) hypertension (5) IDDM (insulin dependent diabetes mellitus) Code(s): E11.9 - TYPE 2 DIABETES MELLITUS WITHOUT COMPLICATIONS; Z79.4 - JAIL (CURRENT) USE OF INSULIN (6) Renal insufficiency Code(s): N28.9 - DISORDER OF KIDNEY AND URETER, UNSPECIFIED Assessment/Plan Pain control will review x rays ortho on medical case manager blood sugars pain control PT eval heparin sc for DVT prophylaxis will follow miralax for constipation
--- NOTE | 2018-05-30 12:29 | PN ---
Progress Note, Physician History of Present Illness: pulmonary alert,no distress,-cp,-sob - Current Medication List Current Medications: Active Medications Allopurinol (Zyloprim -) 100 mg PO DAILY [facility] Last Admin: 05/30/18 10:38 Dose: 100 mg Amlodipine Besylate (Norvasc -) 5 mg PO DAILY [facility] Last Admin: 05/30/18 10:38 Dose: 5 mg Aspirin (Asa -) 81 mg PO DAILY [facility] Last Admin: 05/30/18 10:38 Dose: 81 mg Atorvastatin Calcium (Lipitor -) 10 mg PO HS [facility] Last Admin: 05/29/18 21:58 Dose: 10 mg Carvedilol (Coreg -) 12.5 mg PO BID [facility] Last Admin: 05/30/18 10:38 Dose: 12.5 mg Chlorhexidine Gluconate (Hibiclens For Decolonization -) 1 applic TP [facility] Last Admin: 05/29/18 21:57 Dose: Not Given Furosemide (Lasix -) 40 mg PO DAILY [facility] Last Admin: 05/30/18 10:38 Dose: 40 mg Heparin Sodium (Porcine) (Heparin -) 5,000 unit SQ BID [facility] Last Admin: 05/30/18 10:38 Dose: 5,000 unit Insulin Aspart (Novolog Vial Sliding Scale -) 1 vial SQ TIDAC [facility]; Protocol Last Admin: 05/30/18 11:36 Dose: 2 units Insulin Detemir (Levemir Vial) 22 units SQ BID@0700,2200 [facility] Last Admin: 05/30/18 07:01 Dose: 22 units Pantoprazole Sodium (Protonix -) 20 mg PO DAILY [facility] Last Admin: 05/30/18 10:38 Dose: 20 mg Sevelamer Carbonate (Renvela -) 800 mg PO TIDCM [facility] Last Admin: 05/30/18 12:19 Dose: 800 mg Spironolactone (Aldactone -) 25 mg PO DAILY [facility] Last Admin: 05/30/18 10:38 Dose: 25 mg Tramadol HCl (Ultram -) 50 mg PO Q6H PRN PRN Reason: PAIN LEVEL 6-10 Last Admin: 05/29/18 13:52 Dose: 50 mg Valsartan (Diovan -) 40 mg PO DAILY [facility] Last Admin: 05/30/18 10:38 Dose: 40 mg - Objective Vital Signs: Vital Signs Temperature 97.9 F 05/30/18 09:00 Pulse Rate 70 05/30/18 09:00 Respiratory Rate 18 05/30/18 09:00 Blood Pressure 116/61 05/30/18 09:00 O2 Sat by Pulse Oximetry (%) 93 L 05/30/18 10:00 Constitutional: Yes: Well Nourished, Calm Eyes: Yes: WNL HENT: Yes: WNL Neck: Yes: WNL Cardiovascular: Yes: Regular Rate and Rhythm, S1, S2 Respiratory: Yes: Diminished Gastrointestinal: Yes: Normal Bowel Sounds, Soft Extremities: Yes: WNL Edema: Yes Labs: Problem List - Problems (1) Arthritis Code(s): M19.90 - UNSPECIFIED OSTEOARTHRITIS, UNSPECIFIED SITE (2) Pulmonary edema Code(s): J81.1 - CHRONIC PULMONARY EDEMA Qualifiers: Chronicity: acute Qualified Code(s): J81.0 - Acute pulmonary edema (3) SOB (shortness of breath) on exertion Code(s): R06.02 - SHORTNESS OF BREATH (4) Acute renal failure (ARF) Code(s): N17.9 - ACUTE KIDNEY FAILURE, UNSPECIFIED Qualifiers: Acute renal failure type: unspecified Qualified Code(s): N17.9 - Acute kidney failure, unspecified (5) CAD (coronary artery disease) Code(s): I25.10 - ATHSCL HEART DISEASE OF [place] CORONARY ARTERY W/O ANG PCTRS Qualifiers: Coronary Disease-Associated Artery/Lesion type: [place] artery [place] vs. transplanted heart: [place] heart Associated angina: without angina Qualified Code(s): I25.10 - Atherosclerotic heart disease of [place] coronary artery without angina pectoris (6) CHF (congestive heart failure) Code(s): I50.9 - HEART FAILURE, UNSPECIFIED Qualifiers: Heart failure type: combined systolic and diastolic Heart failure chronicity: acute on chronic Qualified Code(s): I50.43 - Acute on chronic combined systolic (congestive) and diastolic (congestive) heart failure (7) HTN (hypertension) Code(s): I10 - ESSENTIAL (PRIMARY) HYPERTENSION Qualifiers: Hypertension type: essential hypertension Qualified Code(s): I10 - Essential (primary) hypertension (8) Acute on chronic renal insufficiency Code(s): N28.9 - DISORDER OF KIDNEY AND URETER, UNSPECIFIED; N18.9 - CHRONIC KIDNEY DISEASE, UNSPECIFIED Assessment/Plan A/P Acute on Chronic Systolic Heart Failure Pulmonary HTN CAD DM HTN Hyperlipidemia CKD - lasix, aldactone - monitor urine output, creatinine - daily weights - beta sonny, ARB - DVT prophylaxis DR TITUS
[2018-05-30 15:44] VITALS: BMI 45.8
[2018-05-30] MEDS: POLYETHYLENE GLYCOL 3350 119 GM BTL PO SCH (17:39)
[2018-05-30] MEDS: ATORVASTATIN CA 10 MG TABLET (FP) PO SCH (22:08)
[2018-05-31] MEDS: CHLORHEXIDINE GLUCONATE 4% CLEANSER FOR DECOLONIZATION TP SCH ×2 (00:02→22:32)
[2018-05-31] MEDS: INSULIN (LEVEMIR) 100 UNITS/ML UNITS SQ SCH ×2 (06:10→22:32)
[2018-05-31] MEDS: INSULIN SLIDING SCALE (NOVOLOG) 1 VIAL SQ SCH ×3 (06:12→16:39)
[2018-05-31] MEDS: SEVELAMER CARBONATE 800 MG TAB (FP) PO SCH ×3 (08:46→17:48)
[2018-05-31] MEDS: POLYETHYLENE GLYCOL 3350 119 GM BTL PO SCH (09:47)
[2018-05-31] MEDS: CARVEDILOL 12.5 MG TABLET (FP) PO SCH ×2 (09:47→22:32)
[2018-05-31] MEDS: SPIRONOLACTONE 25 MG TABLET (FP) PO SCH (09:47)
[2018-05-31] MEDS: ASPIRIN 81 MG CHEWABLE TABLETS PO SCH (09:47)
[2018-05-31] MEDS: VALSARTAN 40 MG TABLET (FP) PO SCH (09:48)
[2018-05-31] MEDS: PANTOPRAZOLE 20 MG TABLET (FP) PO SCH (09:48)
[2018-05-31] MEDS: FUROSEMIDE 40 MG TABLET (FP) PO SCH (09:48)
[2018-05-31] MEDS: amLODIPine BESYLATE 5 MG TABLET (FP) PO SCH (09:48)
[2018-05-31] MEDS: HEPARIN NA (PORCINE) 5,000 UNITS/ML 1ML VIAL SQ SCH ×2 (09:48→22:32)
[2018-05-31] MEDS: ALLOPURINOL 100 MG TABLET (FP) PO SCH (09:49)
--- NOTE | 2018-05-31 11:31 | PN ---
Progress Note, Physician History of Present Illness: pulmonary alert,no distress,+ cough - Current Medication List Current Medications: Active Medications Allopurinol (Zyloprim -) 100 mg PO DAILY [facility] Last Admin: 05/31/18 09:49 Dose: 100 mg Amlodipine Besylate (Norvasc -) 5 mg PO DAILY [facility] Last Admin: 05/31/18 09:48 Dose: 5 mg Aspirin (Asa -) 81 mg PO DAILY [facility] Last Admin: 05/31/18 09:47 Dose: 81 mg Atorvastatin Calcium (Lipitor -) 10 mg PO HS [facility] Last Admin: 05/30/18 22:08 Dose: 10 mg Carvedilol (Coreg -) 12.5 mg PO BID [facility] Last Admin: 05/31/18 09:47 Dose: 12.5 mg Chlorhexidine Gluconate (Hibiclens For Decolonization -) 1 applic TP [facility] Last Admin: 05/31/18 00:02 Dose: Not Given Furosemide (Lasix -) 40 mg PO DAILY [facility] Last Admin: 05/31/18 09:48 Dose: 40 mg Heparin Sodium (Porcine) (Heparin -) 5,000 unit SQ BID [facility] Last Admin: 05/31/18 09:48 Dose: 5,000 unit Insulin Aspart (Novolog Vial Sliding Scale -) 1 vial SQ TIDAC [facility]; Protocol Last Admin: 05/31/18 06:12 Dose: 6 units Insulin Detemir (Levemir Vial) 22 units SQ BID@0700,2200 [facility] Last Admin: 05/31/18 06:10 Dose: 22 units Pantoprazole Sodium (Protonix -) 20 mg PO DAILY [facility] Last Admin: 05/31/18 09:48 Dose: 20 mg Polyethylene Glycol (Miralax (For Daily Use) -) 17 gm PO DAILY [facility] Last Admin: 05/31/18 09:47 Dose: 17 gm Sevelamer Carbonate (Renvela -) 800 mg PO TIDCM [facility] Last Admin: 05/31/18 08:46 Dose: 800 mg Spironolactone (Aldactone -) 25 mg PO DAILY [facility] Last Admin: 05/31/18 09:47 Dose: 25 mg Tramadol HCl (Ultram -) 50 mg PO Q6H PRN PRN Reason: PAIN LEVEL 6-10 Last Admin: 05/29/18 13:52 Dose: 50 mg Valsartan (Diovan -) 40 mg PO DAILY [facility] Last Admin: 05/31/18 09:48 Dose: 40 mg - Objective Vital Signs: Vital Signs Temperature 98.1 F 05/31/18 08:00 Pulse Rate 75 05/31/18 08:00 Respiratory Rate 18 05/31/18 08:00 Blood Pressure 140/63 05/31/18 08:00 O2 Sat by Pulse Oximetry (%) 94 L 05/31/18 08:00 Constitutional: Yes: Well Nourished, Calm Eyes: Yes: WNL HENT: Yes: WNL Neck: Yes: WNL Cardiovascular: Yes: S1, S2 Respiratory: Yes: CTA Bilaterally Gastrointestinal: Yes: Normal Bowel Sounds, Soft Extremities: Yes: WNL Edema: No Labs: CBC, BMP 05/28/18 07:45 05/28/18 07:45 INR, PTT INR 1.11 (0.82-1.09) 05/24/18 13:19 Problem List - Problems (1) Arthritis Code(s): M19.90 - UNSPECIFIED OSTEOARTHRITIS, UNSPECIFIED SITE (2) Pulmonary edema Code(s): J81.1 - CHRONIC PULMONARY EDEMA Qualifiers: Chronicity: acute Qualified Code(s): J81.0 - Acute pulmonary edema (3) SOB (shortness of breath) on exertion Code(s): R06.02 - SHORTNESS OF BREATH (4) Acute renal failure (ARF) Code(s): N17.9 - ACUTE KIDNEY FAILURE, UNSPECIFIED Qualifiers: Acute renal failure type: unspecified Qualified Code(s): N17.9 - Acute kidney failure, unspecified (5) CAD (coronary artery disease) Code(s): I25.10 - ATHSCL HEART DISEASE OF [place] CORONARY ARTERY W/O ANG PCTRS Qualifiers: Coronary Disease-Associated Artery/Lesion type: [place] artery [place] vs. transplanted heart: [place] heart Associated angina: without angina Qualified Code(s): I25.10 - Atherosclerotic heart disease of [place] coronary artery without angina pectoris (6) CHF (congestive heart failure) Code(s): I50.9 - HEART FAILURE, UNSPECIFIED Qualifiers: Heart failure type: combined systolic and diastolic Heart failure chronicity: acute on chronic Qualified Code(s): I50.43 - Acute on chronic combined systolic (congestive) and diastolic (congestive) heart failure (7) HTN (hypertension) Code(s): I10 - ESSENTIAL (PRIMARY) HYPERTENSION Qualifiers: Hypertension type: essential hypertension Qualified Code(s): I10 - Essential (primary) hypertension (8) Acute on chronic renal insufficiency Code(s): N28.9 - DISORDER OF KIDNEY AND URETER, UNSPECIFIED; N18.9 - CHRONIC KIDNEY DISEASE, UNSPECIFIED Assessment/Plan A/P Acute on Chronic Systolic Heart Failure improved Pulmonary HTN CAD DM HTN Hyperlipidemia CKD - lasix, aldactone - daily weights - beta sonny, ARB - DVT prophylaxis DR TITUS
--- NOTE | 2018-05-31 11:56 | PN ---
Progress Note, Physician Chief Complaint: Events noted Not in distress History of Present Illness: Patient was seen and examined. Awake and alert. Chart was reviewed Denies chest pain, SOB or palpitations Less peripheral edema - Current Medication List Current Medications: Active Medications Allopurinol (Zyloprim -) 100 mg PO DAILY [facility] Last Admin: 05/31/18 09:49 Dose: 100 mg Amlodipine Besylate (Norvasc -) 5 mg PO DAILY [facility] Last Admin: 05/31/18 09:48 Dose: 5 mg Aspirin (Asa -) 81 mg PO DAILY [facility] Last Admin: 05/31/18 09:47 Dose: 81 mg Atorvastatin Calcium (Lipitor -) 10 mg PO HS [facility] Last Admin: 05/30/18 22:08 Dose: 10 mg Carvedilol (Coreg -) 12.5 mg PO BID [facility] Last Admin: 05/31/18 09:47 Dose: 12.5 mg Chlorhexidine Gluconate (Hibiclens For Decolonization -) 1 applic TP [facility] Last Admin: 05/31/18 00:02 Dose: Not Given Furosemide (Lasix -) 40 mg PO DAILY [facility] Last Admin: 05/31/18 09:48 Dose: 40 mg Heparin Sodium (Porcine) (Heparin -) 5,000 unit SQ BID [facility] Last Admin: 05/31/18 09:48 Dose: 5,000 unit Insulin Aspart (Novolog Vial Sliding Scale -) 1 vial SQ TIDAC [facility]; Protocol Last Admin: 05/31/18 06:12 Dose: 6 units Insulin Detemir (Levemir Vial) 22 units SQ BID@0700,2200 [facility] Last Admin: 05/31/18 06:10 Dose: 22 units Pantoprazole Sodium (Protonix -) 20 mg PO DAILY [facility] Last Admin: 05/31/18 09:48 Dose: 20 mg Polyethylene Glycol (Miralax (For Daily Use) -) 17 gm PO DAILY [facility] Last Admin: 05/31/18 09:47 Dose: 17 gm Sevelamer Carbonate (Renvela -) 800 mg PO TIDCM [facility] Last Admin: 05/31/18 08:46 Dose: 800 mg Spironolactone (Aldactone -) 25 mg PO DAILY [facility] Last Admin: 05/31/18 09:47 Dose: 25 mg Valsartan (Diovan -) 40 mg PO DAILY [facility] Last Admin: 05/31/18 09:48 Dose: 40 mg - Objective Vital Signs: Vital Signs Temperature 98.1 F 05/31/18 08:00 Pulse Rate 75 05/31/18 08:00 Respiratory Rate 18 05/31/18 08:00 Blood Pressure 140/63 05/31/18 08:00 O2 Sat by Pulse Oximetry (%) 94 L 05/31/18 08:00 Neck: Yes: Supple Cardiovascular: Yes: Regular Rate and Rhythm, S1, S2 Respiratory: Yes: CTA Bilaterally Gastrointestinal: Yes: Normal Bowel Sounds, Soft. No: Tenderness Edema: Yes Problem List - Problems (1) SOB (shortness of breath) on exertion Code(s): R06.02 - SHORTNESS OF BREATH (2) Acute on chronic renal insufficiency Code(s): N28.9 - DISORDER OF KIDNEY AND URETER, UNSPECIFIED; N18.9 - CHRONIC KIDNEY DISEASE, UNSPECIFIED (3) Biventricular ICD (implantable cardioverter-defibrillator) in place Code(s): Z95.810 - PRESENCE OF AUTOMATIC (IMPLANTABLE) CARDIAC DEFIBRILLATOR (4) CAD (coronary artery disease) Code(s): I25.10 - ATHSCL HEART DISEASE OF [place] CORONARY ARTERY W/O ANG PCTRS Qualifiers: Coronary Disease-Associated Artery/Lesion type: [place] artery [place] vs. transplanted heart: [place] heart Associated angina: without angina Qualified Code(s): I25.10 - Atherosclerotic heart disease of [place] coronary artery without angina pectoris (5) CHF (congestive heart failure) Code(s): I50.9 - HEART FAILURE, UNSPECIFIED Qualifiers: Heart failure type: combined systolic and diastolic Heart failure chronicity: acute on chronic Qualified Code(s): I50.43 - Acute on chronic combined systolic (congestive) and diastolic (congestive) heart failure (6) HTN (hypertension) Code(s): I10 - ESSENTIAL (PRIMARY) HYPERTENSION Qualifiers: Hypertension type: essential hypertension Qualified Code(s): I10 - Essential (primary) hypertension (7) History of percutaneous coronary intervention Code(s): Z98.89 - OTHER SPECIFIED POSTPROCEDURAL STATES * DO NOT USE * (8) Hypercholesterolemia Code(s): E78.0 - PURE HYPERCHOLESTEROLEMIA * DO NOT USE * (9) IDDM (insulin dependent diabetes mellitus) Code(s): E11.9 - TYPE 2 DIABETES MELLITUS WITHOUT COMPLICATIONS; Z79.4 - [facility]F (CURRENT) USE OF INSULIN (10) Pedal edema Code(s): R60.0 - LOCALIZED EDEMA (11) Renal insufficiency Code(s): N28.9 - DISORDER OF KIDNEY AND URETER, UNSPECIFIED (12) Venous insufficiency of both lower extremities Code(s): I87.2 - VENOUS INSUFFICIENCY (CHRONIC) (PERIPHERAL) Assessment/Plan 1. Acute on chronic LV diastolic/systolic failure and pulmonary HTN 2. CAD s/p PCI/stent, angina pectoris 3. History of syncope s/p [employer]-D 5. HTN/HCVD 6. Insulin-dependent type 2 diabetes mellitus 7. Hypercholesterolemia 8. CKD PLAN: 1. Continue Lasix 40 qd with monitor renal function and electrolytes 2. Continue Carvedilol 12.5 bid, Norvasc 5 qd, Valsartan 40 qd, Lipitor 10 qhs, ASA 81 qd and Spironolactone 25 qd 3. DVT and GI prophylaxis 4. OOB to chair and ambulate as tolerated Discharge planning F/U in office Nima Mcgill MD
[2018-05-31] MEDS ORDERED: INSULIN (NOVOLOG) ASPART 100 UNITS/ML 10ML VIAL ONE (12:03)
--- NOTE | 2018-05-31 12:36 | DS ---
Physical Examination Vital Signs: Vital Signs Temperature 98.1 F 05/31/18 08:00 Pulse Rate 75 05/31/18 08:00 Respiratory Rate 18 05/31/18 08:00 Blood Pressure 140/63 05/31/18 08:00 O2 Sat by Pulse Oximetry (%) 94 L 05/31/18 08:00 Constitutional: Yes: No Distress, Calm Cardiovascular: Yes: Regular Rate and Rhythm Respiratory: Yes: Diminished Gastrointestinal: Yes: Normal Bowel Sounds, Soft, Abdomen, Obese. No: Tenderness Edema: Yes (decreased) Labs: CBC, BMP 05/28/18 07:45 05/28/18 07:45 Discharge Summary Reason For Visit: SHORTNESS OF BREATH ON EXERTION Current Active Problems Arthritis (Acute) Chest pain (Acute) Knee pain, acute (Acute) Pulmonary edema (Acute) SOB (shortness of breath) on exertion (Acute) Hospital Course: Admitted for CHF exacerbation, difficulty to ambulate Severe arthritis of knees seen by Cardiology and Ortho Was on Lasix and diuresed well Pt better needs SNF for deconditioning and gait stability and arthritis Condition: Improved - Instructions Referrals: Margarita Ochoa MD [Primary Care Provider] - Disposition: INTERMEDIATE FACILITY - Home Medications Comprehensive Discharge Medication List: Ambulatory Orders Allopurinol [Zyloprim -] 100 mg PO DAILY 02/24/16 Omeprazole 20 mg PO DAILY 10/02/16 Carvedilol [Coreg -] 6.25 mg PO BID #60 tablet 02/24/17 Amlodipine Besylate 5 mg PO DAILY 05/24/18 Cholecalciferol (Vitamin D3) [Vitamin D3] 1,000 unit PO DAILY 05/24/18 Furosemide [Lasix -] 40 mg PO DAILY 05/24/18 Pravastatin Sodium 20 mg PO HS 05/24/18 Sevelamer Carbonate [Renvela] 800 mg PO TID 05/24/18
[2018-05-31] MEDS ORDERED: INSULIN (LEVEMIR) 100 UNITS/ML UNITS SQ ONE (22:26)
[2018-05-31] MEDS: ATORVASTATIN CA 10 MG TABLET (FP) PO SCH (22:32)
[2018-06-01] MEDS: INSULIN (LEVEMIR) 100 UNITS/ML UNITS SQ SCH (06:02)
[2018-06-01] MEDS: INSULIN SLIDING SCALE (NOVOLOG) 1 VIAL SQ SCH ×2 (06:03→11:36)
[2018-06-01] MEDS ORDERED: INSULIN (LEVEMIR) 100 UNITS/ML UNITS SQ ONE (06:13)
[2018-06-01] MEDS ORDERED: INSULIN (NOVOLOG) ASPART 100 UNITS/ML 10ML VIAL ONE (06:13)
[2018-06-01] MEDS ORDERED: PT OWN MED DRAWER 7, Y5N ONE (06:14)
[2018-06-01] MEDS: SPIRONOLACTONE 25 MG TABLET (FP) PO SCH (09:18)
[2018-06-01] MEDS: HEPARIN NA (PORCINE) 5,000 UNITS/ML 1ML VIAL SQ SCH (09:18)
[2018-06-01] MEDS: ASPIRIN 81 MG CHEWABLE TABLETS PO SCH (09:18)
[2018-06-01] MEDS: CARVEDILOL 12.5 MG TABLET (FP) PO SCH (09:18)
[2018-06-01] MEDS: FUROSEMIDE 40 MG TABLET (FP) PO SCH (09:18)
[2018-06-01] MEDS: POLYETHYLENE GLYCOL 3350 119 GM BTL PO SCH (09:18)
[2018-06-01] MEDS: VALSARTAN 40 MG TABLET (FP) PO SCH (09:18)
[2018-06-01] MEDS: SEVELAMER CARBONATE 800 MG TAB (FP) PO SCH ×2 (09:18→11:36)
[2018-06-01] MEDS: PANTOPRAZOLE 20 MG TABLET (FP) PO SCH (09:18)
[2018-06-01] MEDS: ALLOPURINOL 100 MG TABLET (FP) PO SCH (09:18)
[2018-06-01] MEDS: amLODIPine BESYLATE 5 MG TABLET (FP) PO SCH (09:18)
[2018-06-01 10:03] VITALS: BP 131/65; PULSE 71; TEMP 98.7
--- NOTE | 2018-06-01 11:37 | PN ---
Progress Note (short form) - Note Progress Note: Ortho Pt seen and examined. pain has improved Selected Entries 06/01/18 10:00 Temperature 98.7 F Pulse Rate 71 Respiratory 18 Rate Blood Pressure 131/65 PE- nontender, no swelling, ROM 0-110 b/l, nvi xrays b/l knee djd, mostly PF a/p Pts pain has improved orthopedically stable f/u as outpt if needed ok to d/c from ortho pov d/w Dr. Joshi
--- NOTE | 2018-06-01 12:17 | PN ---
Progress Note, Physician History of Present Illness: Dyspnea resolved with diuresis. She denies chest pain, palpitations, paroxysmal nocturnal dyspnea, orthopnea or LE edema. Legs are wrapped. - Current Medication List Current Medications: Active Medications Allopurinol (Zyloprim -) 100 mg PO DAILY [facility] Last Admin: 06/01/18 09:18 Dose: 100 mg Amlodipine Besylate (Norvasc -) 5 mg PO DAILY [facility] Last Admin: 06/01/18 09:18 Dose: 5 mg Aspirin (Asa -) 81 mg PO DAILY [facility] Last Admin: 06/01/18 09:18 Dose: 81 mg Atorvastatin Calcium (Lipitor -) 10 mg PO HS [facility] Last Admin: 05/31/18 22:32 Dose: 10 mg Carvedilol (Coreg -) 12.5 mg PO BID [facility] Last Admin: 06/01/18 09:18 Dose: 12.5 mg Chlorhexidine Gluconate (Hibiclens For Decolonization -) 1 applic TP [facility] Last Admin: 05/31/18 22:32 Dose: Not Given Furosemide (Lasix -) 40 mg PO DAILY [facility] Last Admin: 06/01/18 09:18 Dose: 40 mg Heparin Sodium (Porcine) (Heparin -) 5,000 unit SQ BID [facility] Last Admin: 06/01/18 09:18 Dose: 5,000 unit Insulin Aspart (Novolog Vial Sliding Scale -) 1 vial SQ TIDAC [facility]; Protocol Last Admin: 06/01/18 11:36 Dose: 2 units Insulin Detemir (Levemir Vial) 22 units SQ BID@0700,2200 [facility] Last Admin: 06/01/18 06:02 Dose: 22 units Pantoprazole Sodium (Protonix -) 20 mg PO DAILY [facility] Last Admin: 06/01/18 09:18 Dose: 20 mg Polyethylene Glycol (Miralax (For Daily Use) -) 17 gm PO DAILY [facility] Last Admin: 06/01/18 09:18 Dose: 17 gm Sevelamer Carbonate (Renvela -) 800 mg PO TIDCM [facility] Last Admin: 06/01/18 11:36 Dose: 800 mg Spironolactone (Aldactone -) 25 mg PO DAILY [facility] Last Admin: 06/01/18 09:18 Dose: 25 mg Valsartan (Diovan -) 40 mg PO DAILY [facility] Last Admin: 06/01/18 09:18 Dose: 40 mg - Objective Vital Signs: Vital Signs Temperature 98.7 F 06/01/18 10:00 Pulse Rate 71 06/01/18 10:00 Respiratory Rate 18 06/01/18 10:00 Blood Pressure 131/65 06/01/18 10:00 O2 Sat by Pulse Oximetry (%) 94 L 05/31/18 21:00 Constitutional: Yes: No Distress, Calm Neck: Yes: Supple, Tenderness Cardiovascular: Yes: Regular Rate and Rhythm Respiratory: Yes: Regular, Diminished Gastrointestinal: Yes: Normal Bowel Sounds, Soft, Abdomen, Obese Edema: No Labs: CBC, BMP 05/28/18 07:45 05/28/18 07:45 INR, PTT INR 1.11 (0.82-1.09) 05/24/18 13:19 Problem List - Problems (1) Pulmonary edema Code(s): J81.1 - CHRONIC PULMONARY EDEMA Qualifiers: Chronicity: acute Qualified Code(s): J81.0 - Acute pulmonary edema (2) SOB (shortness of breath) on exertion Code(s): R06.02 - SHORTNESS OF BREATH (3) Acute on chronic renal insufficiency Code(s): N28.9 - DISORDER OF KIDNEY AND URETER, UNSPECIFIED; N18.9 - CHRONIC KIDNEY DISEASE, UNSPECIFIED (4) Biventricular ICD (implantable cardioverter-defibrillator) in place Code(s): Z95.810 - PRESENCE OF AUTOMATIC (IMPLANTABLE) CARDIAC DEFIBRILLATOR (5) CHF (congestive heart failure) Code(s): I50.9 - HEART FAILURE, UNSPECIFIED Qualifiers: Heart failure type: combined systolic and diastolic Heart failure chronicity: acute on chronic Qualified Code(s): I50.43 - Acute on chronic combined systolic (congestive) and diastolic (congestive) heart failure (6) HTN (hypertension) Code(s): I10 - ESSENTIAL (PRIMARY) HYPERTENSION Qualifiers: Hypertension type: essential hypertension Qualified Code(s): I10 - Essential (primary) hypertension (7) History of percutaneous coronary intervention Code(s): Z98.89 - OTHER SPECIFIED POSTPROCEDURAL STATES * DO NOT USE * (8) Hypercholesterolemia Code(s): E78.0 - PURE HYPERCHOLESTEROLEMIA * DO NOT USE * (9) IDDM (insulin dependent diabetes mellitus) Code(s): E11.9 - TYPE 2 DIABETES MELLITUS WITHOUT COMPLICATIONS; Z79.4 - [facility] (CURRENT) USE OF INSULIN (10) Anemia Code(s): D64.9 - ANEMIA, UNSPECIFIED Qualifiers: Anemia type: due to chronic kidney disease Assessment/Plan March 2018 Echo: Mild-mod decreased LVEF 40-45%, pacemaker lead, mild MR, TR, pulm HTN 1. Acute on chronic LV diastolic/systolic failure and pulmonary HTN 2. CAD s/p PCI/stent, angina pectoris 3. 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 HTN/HCVD 5. Insulin-dependent type 2 diabetes mellitus 6. Hypercholesterolemia 7. CKD PLAN: 1. Continue Lasix 40 qd with monitor renal function and electrolytes 2. Continue Carvedilol 12.5 bid, Norvasc 5 qd, Valsartan 40 qd, Lipitor 10 qhs, ASA 81 qd and Spironolactone 25 qd 3. DVT and GI prophylaxis 4. OOB to chair and ambulate as tolerated 5. D/c planning
== END 2018-06-01 12:40 | DRG 291 ==
LOC: JER 11:11 → JERBED 15:22 → J5S 18:39 → JICU 21:52 → J5S 05-26 11:50
PROVIDERS: ADMIT Internal Medicine; ATTEND Internal Medicine
DX: I13.0 Hypertensive heart and chronic kidney disease with heart failure and stage 1 through stage 4 chronic kidney disease, or unspecified chronic kidney disease (principal); I50.43 Acute on chronic combined systolic (congestive) and diastolic (congestive) heart failure; J81.1 Chronic pulmonary edema; I25.110 Atherosclerotic heart disease of native coronary artery with unstable angina pectoris; E78.5 Hyperlipidemia, unspecified; F41.9 Anxiety disorder, unspecified; E11.51 Type 2 diabetes mellitus with diabetic peripheral angiopathy without gangrene; J44.9 Chronic obstructive pulmonary disease, unspecified; K21.9 Gastro-esophageal reflux disease without esophagitis; D64.9 Anemia, unspecified; M10.9 Gout, unspecified; M19.90 Unspecified osteoarthritis, unspecified site; I27.20 Pulmonary hypertension, unspecified; M17.0 Bilateral primary osteoarthritis of knee; E11.22 Type 2 diabetes mellitus with diabetic chronic kidney disease; N18.9 Chronic kidney disease, unspecified; Z79.4 Long term (current) use of insulin; Z95.5 Presence of coronary angioplasty implant and graft; Z95.810 Presence of automatic (implantable) cardiac defibrillator
CPT/HCPCS: 36415; 36600; 70450-TC; 71045-TC-FY; 73562-TC-LT-FY; 73562-TC-RT-FY; 80048; 80053; 80061; 82550; 82553; 82803; 82962; 83036; 83721; 83735; 83880; 84100; 84439; 84443; 84484; 84550; 85025; 85379; 85610; 85730; 93005; 93010; 93926-TC; 93971-TC; 97116-GP; 97161-GP; 99282-25; J1644

== ENCOUNTER 2018-10-13 10:00 | Emergency (ER) | payer OTHER ==
[2018-10-13 10:10] VITALS: BMI 38.9
--- NOTE | 2018-10-13 10:26 | PDOC ---
History of Present Illness - General Chief Complaint: Vaginal Bleeding Stated Complaint: Vaginal Bleeding Time Seen by Provider: 10/13/18 10:26 History Source: Patient, Care Provider, Lpc Used Exam Limitations: Language Barrier - History of Present Illness Initial Comments: 10/13/18 11:14 HPI/ROS/PE was performed with phone lang interpreter ([id number]) 73 year old female with PMH HTN, CKD, DM, CHF, arthritis presented to ED for vaginal bleeding starting today. Per home health aid she was changing the patient's diaper and discovered vaginal bleeding with clots. Pt has only used one pad, has not soaked through it. Pt admitted to suprapubic pain. Pt denied chest pain, shortness of breath, cough, fever, chills, vomiting, diarrhea, constipation. She also complained of increased left lower extremity swelling x1 week. Pt denied surgery<4 weeks, bed rest>3 days, active malignancy<6 months, travel> 5 hours. Pt ambulates at home with a cane. Past History - Past Medical History Allergies/Adverse Reactions: Allergies Allergy/AdvReac Type Severity Reaction Status Date / Time No Known Allergies Allergy Verified 05/24/18 11:57 Home Medications: Ambulatory Orders Allopurinol [Zyloprim -] 100 mg PO DAILY 02/24/16 Omeprazole 20 mg PO DAILY 10/02/16 Carvedilol [Coreg -] 6.25 mg PO BID #60 tablet 02/24/17 Cholecalciferol (Vitamin D3) [Vitamin D3] 1,000 unit PO DAILY 05/24/18 Furosemide [Lasix -] 40 mg PO DAILY 05/24/18 Pravastatin Sodium 20 mg PO HS 05/24/18 Sevelamer Carbonate [Renvela -] 800 mg PO TID 05/24/18 Spironolactone [Aldactone -] 25 mg PO DAILY #60 tablet 05/31/18 Valsartan [Diovan] 40 mg PO DAILY #30 tablet 05/31/18 traMADol HCL [Ultram -] 50 mg PO Q6H PRN #20 tablet MDD 4 05/31/18 Amlodipine Besylate [Norvasc -] 5 mg PO DAILY 10/13/18 Insulin (Levemir) [Levemir Vial] 22 units SQ DAILY@2200 10/13/18 Insulin (Levemir) [Levemir Vial] 24 unit SQ DAILY@0700 10/13/18 Insulin Aspart [Novolog] 10 unit SQ TID 10/13/18 Anemia: Yes (ISH) Asthma: No Cancer: No Cardiac Disorders: Yes (HCVD, chest pain syndrome) CVA: No COPD: No CHF: Yes Dementia: No Diabetes: Yes (TYPE II) GI Disorders: No Disorders: Yes (Renal Insuffiency) HTN: Yes Hypercholesterolemia: Yes Liver Disease: No Psychiatric Problems: Yes (anxiety) Seizures: No Thyroid Disease: No - Surgical History Abdominal Surgery: No Appendectomy: No Cardiac Surgery: Yes (STENTS/PPM 2007) Cholecystectomy: No Lung Surgery: No Neurologic Surgery: No Orthopedic Surgery: No - Immunization History Td Vaccination: Yes TDAP Vaccination: Yes Immunization Up to Date: Yes - Suicide/Smoking/Psychosocial Hx Smoking Status: No Smoking History: Unknown if ever smoked Have you smoked in the past 12 months: No Number of Cigarettes Smoked Daily: 0 Information on smoking cessation initiated: No Hx Alcohol Use: No Drug/Substance Use Hx: No Substance Use Type: None Hx Substance Use Treatment: No Review of Systems - Review of Systems Able to Perform ROS?: Yes Comments:: 10/13/18 11:16 General: denied fever, chills, night sweats, generalized weakness. HEENT: denied sore throat, rhinorrhea, ear pain. Heart: admitted to left lower extremity swelling. denied chest pain, palpitations, syncope, lower extremity swelling, diaphoresis. Respiratory: denied shortness of breath, cough, sputum production, hemoptysis. Abdomen: admitted to abdominal pain. denied nausea, vomiting, diarrhea, constipation, blood in stool. : admitted to vaginal bleeding. denied dysuria, increased urinary frequency, hematuria, urinary incontinence, flank pain. Back: denied back pain. Musculoskeletal: admitted to left hip pain. Neurological: denied headache, dizziness, numbness, tingling, weakness. Skin: denied rash, laceration, abrasion. *Physical Exam - Vital Signs Last Vital Signs Temp Pulse Resp BP Pulse Ox 97.9 F 84 20 149/89 100 10/13/18 10:09 10/13/18 10:09 10/13/18 10:09 10/13/18 10:10/13/18 10:09 - Physical Exam Comments: 10/13/18 11:17 Constitutional: Well-nourished, Well-developed, appearing stated age. obese. HEENT: head is normocephalic, atraumatic. EOMI. PERRLA. Neck: supple. Full ROM. Heart: regular rhythm. no murmurs, rubs or gallops. Lungs: clear to auscultation bilaterally. no crackles, rhonchi or wheezing. no stridor. Abdomen: soft, nondistended. suprapubic tenderness. normal bowel sounds. no rebound, guarding, masses. Extremities: Peripheral pulses intact. No lower extremity edema. Neurological: CN 2-12 grossly intact. Moves all four extremities. Psych: awake, alert, oriented x3. Follows commands. Answers questions appropriately. Pelvic: pelvic tenderness to palpation. pooling of blood in the vaginal vault. unable to visualize cervix secondary to pain, speculum was removed for patient comfort. no CMT. no adnexal tenderness. Moderate Sedation - Procedure Monitoring Vital Signs: Procedure Monitoring Vital Signs Temperature 97.9 F 10/13/18 10:09 Pulse Rate 84 10/13/18 10:09 Respiratory Rate 20 10/13/18 10:09 Blood Pressure 149/89 10/13/18 10:09 O2 Sat by Pulse Oximetry (%) 100 10/13/18 10:09 ED Treatment Course - LABORATORY CBC & Chemistry Diagram: 10/13/18 11:20 10/13/18 11:20 Medical Decision Making - Medical Decision Making 10/13/18 13:06 73 year old female with above PMH presented to ED for vaginal bleeding with suprapubic pain and increased LLE swelling. Initial Vital Signs Temp Pulse Resp BP Pulse Ox 97.9 F 84 20 149/89 100 10/13/18 10:09 10/13/18 10:09 10/13/18 10:09 10/13/18 10:09 10/13/18 10:09 Afebrile. No tachycardia. No tachypnea. Mild hypertension. No hypoxia on room air. Pending pelvic US, XR left hip, LLE duplex US, labs. CBC WBC 8.3 K/mm3 (4.0-10.0) 10/13/18 11:20 RBC 4.84 M/mm3 (3.60-5.2) 10/13/18 11:20 Hgb 10.3 GM/dL (10.7-15.3) L 10/13/18 11:20 Hct 33.8 % (32.4-45.2) D 10/13/18 11:20 MCV 69.9 fl (80-96) L 10/13/18 11:20 MCH 21.3 pg (25.7-33.7) L 10/13/18 11:20 MCHC 30.4 g/dl (32.0-36.0) L 10/13/18 11:20 RDW 15.5 % (11.6-15.6) 10/13/18 11:20 Plt Count 188 K/MM3 (134-434) 10/13/18 11:20 MPV 10.7 fl (7.5-11.1) 10/13/18 11:20 Absolute Neuts (auto) 5.9 K/mm3 (1.5-8.0) 10/13/18 11:20 Neutrophils % 70.3 % (42.8-82.8) D 10/13/18 11:20 Lymphocytes % 17.2 % (8-40) D 10/13/18 11:20 Monocytes % 7.7 % (3.8-10.2) 10/13/18 11:20 Eosinophils % 3.6 % (0-4.5) 10/13/18 11:20 Basophils % 1.2 % (0-2.0) 10/13/18 11:20 Nucleated RBC % 0 % (0-0) 10/13/18 11:20 No leukocytosis. Mild microcytic anemia. Higher than usual baseline. INR, PTT INR 1.03 (0.83-1.09) 10/13/18 12:00 Normal coags. CMP Sodium 139 mmol/L (136-145) 10/13/18 11:20 Potassium 4.8 mmol/L (3.5-5.1) 10/13/18 11:20 Chloride 104 mmol/L (98-107) 10/13/18 11:20 Carbon Dioxide 27 mmol/L (21-32) 10/13/18 11:20 Anion Gap 8 MMOL/L (8-16) 10/13/18 11:20 BUN 43 mg/dL (7-18) H 10/13/18 11:20 Creatinine 2.2 mg/dL (0.55-1.3) H 10/13/18 11:20 Creat Clearance w eGFR 21.82 (>60) 10/13/18 11:20 Random Glucose 386 mg/dL (74-106) H* 10/13/18 11:20 Calcium 9.3 mg/dL (8.5-10.1) 10/13/18 11:20 Creatine Kinase 78 IU/L (26-192) 10/13/18 11:20 Troponin I < 0.02 ng/ml (0.00-0.05) 10/13/18 11:20 CKD, Cr at baseline. Hyperglycemia. - IV normal saline 1000 cc bolus ordered. Left hip/pelvis XR: no acute fracture. degenerative changes noted. no evidence of avascular necrosis. pelvic calcifications noted, clinically correlate for fibroids. - Pending pelvic US 10/13/18 14:37 LLE duplex US: no DVT Pelvic ultrasound: fibroids noted. Pt to be discharged with RIG SUPERVISOR and PCP follow up. Phone lang interpreter used for discharge instructions ([id number]) Pt informed that her symptoms could be due to uterine/cervical cancer and that she needs to follow up with her PCP and RIG SUPERVISOR promptly. Pt then stated that she had a prior episode of vaginal bleeding the day before , saw her PCP about it, and was referred to RIG SUPERVISOR. She stated she has an upcoming appointment with RIG SUPERVISOR. I stressed with the patient the importance of attending this appointment. She expressed understanding and stated she would follow up. *DC/Admit/Observation/Transfer Diagnosis at time of Disposition: Vaginal bleeding - Discharge Dispostion Disposition: HOME Condition at time of disposition: Stable Decision to Admit order: No - Referrals Referrals: Margarita Ochoa MD [Primary Care Provider] - - Patient Instructions Printed Discharge Instructions: DI for Vaginal Bleeding Additional Instructions: You were seen today for vaginal bleeding. Your ultrasound showed fibroids. It is very important that you follow up with a director advertising to have futher testing performed. There is a chance that this bleeding is from cancer. Your lab work was similar to your baseline labs in our database. Your leg ultrasound showed no DVT or blood clot. I have printed out copies for you to take to your doctor. Follow up with your primary care doctor in 2-3 days. Return to the Emergency Department for increase in bleeding, chest pain, shortness of breath, palpitations, lightheadedness, passing out, or any other new, worsening or concerning symptoms. Take motrin over the counter for your pain, take as advised on label. Ou te w bladimir a nellie senyen nan vajen. Ultrason ou a te montre fibrom. Li tr enptan ke ou swiv ak yon jingermanjist yo te f ts pi byen f. Gen yon chans ke senyen sa a se soti nan kans. Laboratwa ou te sanble ak laboratwa debaz ou nan baz done nou an. Ltrason ou te montre pa gen okenn DVT oswa goodwin boul. Mwen te enprime kopi nellie ou nellie w mennen nan dokt ou. Swiv moute ak dokt premye swen ou nan 2-3 ammy. Retounen nan Depatman Ijans nellie ogmantasyon nan senyen, doul nan pwatrin, souf souf, palpitasyon, toudisman, pase soti, oswa nenpt ki nouvo, scarlet pi grav oswa maria eugenia sentm yo. Pran motrin sacha kontwa an nellie doul ou, pran km avize sacha etikt. - Post Discharge Activity
--- NOTE | 2018-10-13 11:26 | PDOC ---
Attending Attestation - HPI HPI: 10/13/18 12:31 The patient is a 73 year old female, with a significant past medical history of HTN, HLD, DM, CAD, pacemaker, Venous Insufficiency, who presents to the emergency department with vaginal bleeding and suprapubic pain today. She also reports left hip pain radiating down her left leg for several weeks. She denies any recent traumas, falls or injuries. The patient denies chest pain, shortness of breath, headache and dizziness. The patient denies fever, chills, nausea, vomit, diarrhea and constipation. The patient denies dysuria, frequency, urgency and hematuria. Allergies: NKDA - Medical Decision Making 10/13/18 12:31 Documentation prepared by Edie Willis, acting as anesthesiology medical doctor for Fabiola Mcclendon MD <Edie Willis - Last Filed: 10/13/18 12:31> - Resident Resident Name: ShawCynthia amaral - ED Attending Attestation I have performed the following: I have examined & evaluated the patient, The case was reviewed & discussed with the resident, I agree w/resident's findings & plan, Exceptions are as noted - HPI HPI: Initially reported unilateral leg pain, but later reported that both legs are painful. - Physicial Exam PE: GENERAL: Awake, alert, and fully oriented, in no acute distress HEAD: No signs of trauma EYES: PERRLA, EOMI, sclera anicteric, conjunctiva clear ENT: Auricles normal inspection, hearing grossly normal, nares patent, oropharynx clear without exudates. Moist mucosa NECK: Normal ROM, supple, no lymphadenopathy, JVD, or masses LUNGS: Breath sounds equal, clear to auscultation bilaterally. No wheezes, and no crackles HEART: Regular rate and rhythm, normal S1 and S2, no murmurs, rubs or gallops ABDOMEN: Soft, nontender, normoactive bowel sounds. No guarding, no rebound. No masses EXTREMITIES: Normal range of motion. 3+ pitting edema to BLE, with gauze dressings in place. No clubbing or cyanosis. No cords, erythema, or tenderness NEUROLOGICAL: Cranial nerves II through XII grossly intact. Normal speech. Motor and sensation intact. SKIN: Warm, Dry, normal turgor, no rashes or lesions noted. - Medical Decision Making Pt with vaginal bleeding, lower extremity pain. Will obtain labs, doppler ultrasound, and pelvic ultrasound. <Fabiola Mcclendon - Last Filed: 10/13/18 14:02>
[2018-10-13 12:20] LABS: BASO % 1.2 % (0-2.0); EOS % 3.6 % (0-4.5); HEMATOCRIT 33.8 % (32.4-45.2); HEMOGLOBIN 10.3 GM/dL (10.7-15.3); LYMPH % 17.2 % (8-40); MCH 21.3 pg (25.7-33.7); MCHC 30.4 g/dl (32.0-36.0); MEAN CELL VOLUME 69.9 fl (80-96); MEAN PLT VOLUME 10.7 fl (7.5-11.1); MONO % 7.7 % (3.8-10.2); NEUT % 70.3 % (42.8-82.8); PLATELET COUNT 188 K/MM3 (134-434); RBC 4.84 M/mm3 (3.60-5.2); RDW 15.5 % (11.6-15.6); WHITE BLOOD COUNT 8.3 K/mm3 (4.0-10.0)
[2018-10-13 12:23] LABS: INR 1.03 (0.83-1.09); PROTHROMBIN TIME (PATIENT) 12.2 SEC (9.7-13.0)
[2018-10-13 12:25] LABS: ACTIVATED PTT 26.6 SECONDS (25.2-36.5)
[2018-10-13 13:05] LABS: ANION GAP 8 MMOL/L (8-16); BLOOD UREA NITROGEN 43 mg/dL (7-18); CALCIUM 9.3 mg/dL (8.5-10.1); CHLORIDE 104 mmol/L (98-107); CO2 27 mmol/L (21-32); CREATININE 2.2 mg/dL (0.55-1.3); POTASSIUM 4.8 mmol/L (3.5-5.1); SODIUM 139 mmol/L (136-145)
[2018-10-13 13:12] LABS: GLUCOSE,RANDOM 386 mg/dL (74-106)
[2018-10-13] MEDS ORDERED: SODIUM CHLORIDE 1,000 ML IV STA (13:14)
[2018-10-13 14:45] LABS: ANISOCYTOSIS 2+; MACROCYTOSIS 0; PLATELET ESTIMATE NORMAL; TARGET CELLS 1+
[2018-10-13 15:07] VITALS: BP 143/78; PULSE 68; TEMP 98.5
== END 2018-10-13 16:51 | disposition home or self-care (01) ==
LOC: JER 10:00
PROC: 3E0337Z Introduction of Electrolytic and Water Balance Substance into Peripheral Vein, Percutaneous Approach (ICD-10-PCS; principal; 2018-10-13)
DX: D25.9 Leiomyoma of uterus, unspecified (principal); I13.0 Hypertensive heart and chronic kidney disease with heart failure and stage 1 through stage 4 chronic kidney disease, or unspecified chronic kidney disease; E11.22 Type 2 diabetes mellitus with diabetic chronic kidney disease; N18.9 Chronic kidney disease, unspecified; I50.9 Heart failure, unspecified; Z79.4 Long term (current) use of insulin; E78.00 Pure hypercholesterolemia, unspecified; F41.9 Anxiety disorder, unspecified; R60.0 Localized edema; R26.89 Other abnormalities of gait and mobility; Z99.89 Dependence on other enabling machines and devices; M25.552 Pain in left hip
CPT/HCPCS: 36415; 73523-TC-FY; 76830-TC; 76856-TC; 80048; 82550; 84484; 85025; 85610; 85730; 86850; 86900; 86901; 93971-TC; 99284-25; J7030

== ENCOUNTER 2019-01-27 15:46 | Inpatient (IN) | payer OTHER ==
--- NOTE | 2019-01-27 16:47 | PDOC ---
History of Present Illness - General Stated Complaint: SWOLLEN FOOT - History of Present Illness Initial Comments: Yesenia Kyle is a Danish-Creole (interviewed w/ media production manager) speaking 73yo woman with a PMH of CHF, CKD, HTN, HLD, IDDM, CAD, chronic venous insufficiency who presents with two weeks of worsening BLE edema and b/l knee pain. She is unclear about whether she typically has significant swelling. She does state that she takes a diuretic. Ms Kyle is unsure whether any of her medications have changed recently. She saw her PMD about 3 weeks ago, and she states that they "might have changed medications but she trusts them." She checks her blood sugars at home and says that sometimes they are high and sometimes they are normal. Past History - Past Medical History Allergies/Adverse Reactions: Allergies Allergy/AdvReac Type Severity Reaction Status Date / Time No Known Allergies Allergy Verified 01/27/19 17:35 Home Medications: Ambulatory Orders Allopurinol [Zyloprim -] 100 mg PO DAILY 02/24/16 Omeprazole 20 mg PO DAILY 10/02/16 Carvedilol [Coreg -] 6.25 mg PO BID #60 tablet 02/24/17 Cholecalciferol (Vitamin D3) [Vitamin D3] 1,000 unit PO DAILY 05/24/18 Furosemide [Lasix -] 40 mg PO DAILY 05/24/18 Pravastatin Sodium 20 mg PO HS 05/24/18 Sevelamer Carbonate [Renvela -] 800 mg PO TID 05/24/18 Spironolactone [Aldactone -] 25 mg PO DAILY #60 tablet 05/31/18 Valsartan [Diovan] 40 mg PO DAILY #30 tablet 05/31/18 traMADol HCL [Ultram -] 50 mg PO Q6H PRN #20 tablet MDD 4 05/31/18 Amlodipine Besylate [Norvasc -] 5 mg PO DAILY 10/13/18 Insulin (Levemir) [Levemir Vial] 22 units SQ DAILY@2200 10/13/18 Insulin (Levemir) [Levemir Vial] 24 unit SQ DAILY@0700 10/13/18 Insulin Aspart [Novolog] 10 unit SQ TID 10/13/18 Anemia: Yes (ISH) Asthma: No Cancer: No Cardiac Disorders: Yes (HCVD, chest pain syndrome) CVA: No COPD: No CHF: Yes Dementia: No Diabetes: Yes (TYPE II) GI Disorders: No Disorders: Yes (Renal Insuffiency) HTN: Yes Hypercholesterolemia: Yes Liver Disease: No Psychiatric Problems: Yes (anxiety) Seizures: No Thyroid Disease: No - Surgical History Abdominal Surgery: No Appendectomy: No Cardiac Surgery: Yes (STENTS/PPM 2007) Cholecystectomy: No Lung Surgery: No Neurologic Surgery: No Orthopedic Surgery: No - Reproductive History Cervical CA: No Dysfunctional Uterine Bleeding: No Ectopic : No Endometrial CA: No Polycystic Ovaries: No Therapeutic (s) & number: No Tubal Ligation: No - Immunization History Td Vaccination: Yes TDAP Vaccination: Yes Immunization Up to Date: Yes - Suicide/Smoking/Psychosocial Hx Smoking Status: No Smoking History: Unknown if ever smoked Have you smoked in the past 12 months: No Number of Cigarettes Smoked Daily: 0 Hx Alcohol Use: No Drug/Substance Use Hx: No Substance Use Type: None Hx Substance Use Treatment: No Review of Systems - Review of Systems Comments:: Could not fully obtain; pt somewhat tangential in answers Gen: No known fevers, +malaise HEENT: No changes in vision, no congestion, no sore throat CV: +h/o "heart problems" Pulm: No new SOB or cough GI: +occasional stomach pain, no recent vomiting : No changes in urination Musc: See HPI Vasc: h/o venous stasis Neuro: No focal deficits *Physical Exam - Physical Exam Comments: General: Comfortable, no acute distress, obese HEENT: PERRL, EOMI, MMM, multiple missing teeth Cards: RRR, no murmur appreciated Pulm: Comfortable on room air, clear to auscultation bilaterally Abd: Soft, nontender, nondistended : No CVA tenderness Ext: 3+ BLE edema. Skin changes c/w chronic venous stasis, small open wound w/o sign of infection on R anterior alcantara Vasc: Extremities WWP Neuro: A&Ox3, CN grossly intact, normal speech, motor/sensory grossly intact and symmetric Psych: Mood appropriate to situation ED Treatment Course - LABORATORY CBC & Chemistry Diagram: 01/27/19 17:30 01/27/19 18:20 Medical Decision Making - Medical Decision Making 01/27/19 16:46 Yesenia Kyle is a Danish-Creole speaking 73yo woman with a PMH of CHF, CKD, HTN, HLD, IDDM, CAD, chronic venous insufficiency who presents with two weeks of worsening BLE edema and b/l knee pain. She does not know her medications - Per conversation w/ Marielena (nurse) translating, it appears that Ms Kyle has an aide that helps with her medications and preparing meals, but Ms Kyle prefers her own food -likely not compliant with diet - BLE swelling most likely due to known venous stasis, likely worsened by either CHF or CKD exacerbation. Unclear whether she is compliant with diet, takes medications when the aide is not available or if her meds have recently changed. - CBC, CMP, mag, phos, BNP, EKG, CXR - Pt reporting increased leg pain, will check duplex to r/o thrombus or fluid collections 01/27/19 17:48 - IV placed by Dr Khan - Labs hemolized. Resent 01/27/19 19:14 - Labs reviewed. BNP 1100 - US completed, radiology read pending - Admit for diuresis after duplex read completed 01/27/19 19:19 - Duplex w/o DVT, though poorly visualized due to tissue edema 01/27/19 19:38 - Discussed with Dr Lovell Discussed with Dr Mederos. Marichuy Hand PGY1 *DC/Admit/Observation/Transfer Diagnosis at time of Disposition: Venous insufficiency of both lower extremities - Discharge Dispostion Decision to Admit order: Yes - Referrals - Patient Instructions - Post Discharge Activity
--- NOTE | 2019-01-27 17:33 | PDOC ---
Attending Attestation - Resident Resident Name: Marichuy Hand - ED Attending Attestation I have performed the following: I have examined & evaluated the patient, The case was reviewed & discussed with the resident, I agree w/resident's findings & plan - HPI HPI: 01/27/19 19:04 The patient is 73 year old female with a significant past medical history of Anxiety, [place], HLD, DM, CAD, Venous Insufficiency who presents with two weeks of worsening bilateral lower extremity edema. The patient notes she has been endorsing 25 years of LE swelling, which, has gotten progressively worse the last 2 weeks. The patient notes she is poorly complaint with her medications and is unsure if her PCP changed any of them. The patient reports that she checks her blood sugars at home and its never consistent. Denies fever, chills, chest pain, SOB, palpitation, dizziness, weakness, N, V, D , abdominal pain, bladder and bowel problems, leg swelling, No sick contacts or travel. No new changes in medications. Allergies: NKDA Past Medical History: Anxiety, TN, HLD, DM, CAD, Venous Insufficiency Social history: Lives with family. No smoking. No alcohol. No illicit drugs. Surgical history: STENTS/PPM 2007 - Physicial Exam PE: 01/27/19 19:04 Agree with the resident's HPI and PE as documented in the electronic medical record. NAD, morbidly obese. PERRL, EOMI, MMM, nl conjunctiva, anicteric; neck supple. lungs clear, RRR, abdomen soft nontender. SANDERS x4, no focal neuro deficits. normal color for ethnicity, WWP. bilateral 4+ pitting edema in BLE, RLE with venous dermatitis changes and superficial ulcer. +bilateral calf/LE tenderness. - Medical Decision Making 01/27/19 19:06 I, Bety Mederos MD, attest that this document has been prepared under my direction and personally reviewed by me in its entirety. I further attest, that it accurately reflects all work, treatment, procedures and medical decision -making performed by me. See HPI for details DDx. DVT, lymphedema, venous stasis, CHF, electrolyte/metabolic derangement.s Vital signs reviewed, wnl. Prior notes reviewed, including admissions, discharges and consultations. laboratory results and imaging reviewed, basic labs and lytes wnl, notable for stable anemia/Cr ~2 CXR_cardiomegaly and central congestive changes Cardiac panel_elevated bnp as expected with CKD/chronic lymphedema and CHF EKG V paced pattern at 73 bpm, pacer spikes seen, no interval abnormalities, wide QRS, ST and T wave segments and morphology normal. Nonspecific T wave abnormalities similar to prior EKG ED course - diuresis lasix 40mg x1 IV, doubles her home dose. Cr at baseline value, no acute changes, will need close monitoring with diuresis - duplex to r/o DVT with worsening edema, calf pain and poor mobility/obesity admit for fluid OD, chf. 01/28/19 18:56 01/28/19 18:57 <Bety Mederos - Last Filed: 01/28/19 18:58> Attestations - Attestations 01/27/19 19:10 Documentation prepared by Darlyn Aguila, acting as medical management specialist for Bety Mederos MD, <Darlyn Aguila - Last Filed: 01/27/19 19:09>
[2019-01-27 17:45] LABS: BASO % 0.7 % (0-2.0); EOS % 3.6 % (0-4.5); HEMATOCRIT 30.3 % (32.4-45.2); HEMOGLOBIN 9.8 GM/dL (10.7-15.3); LYMPH % 15.6 % (8-40); MCH 22.4 pg (25.7-33.7); MCHC 32.5 g/dl (32.0-36.0); MEAN CELL VOLUME 69.1 fl (80-96); MEAN PLT VOLUME 10.9 fl (7.5-11.1); NEUT % 71.1 % (42.8-82.8); PLATELET COUNT 202 K/MM3 (134-434); RBC 4.38 M/mm3 (3.60-5.2); RDW 15.1 % (11.6-15.6)
[2019-01-27 19:03] LABS: ALBUMIN 3.2 g/dl (3.4-5.0); ALK PHOS 151 U/L (45-117); ANION GAP 7 MMOL/L (8-16); BILIRUBIN,TOTAL 0.1 mg/dL (0.2-1); BLOOD UREA NITROGEN 44 mg/dL (7-18); CALCIUM 8.8 mg/dL (8.5-10.1); CHLORIDE 108 mmol/L (98-107); CO2 26 mmol/L (21-32); CREATININE 2.3 mg/dL (0.55-1.3); GLUCOSE,RANDOM 148 mg/dL (74-106); MAGNESIUM 1.7 mg/dL (1.8-2.4); PHOSPHOROUS 3.4 mg/dL (2.5-4.9); POTASSIUM 4.4 mmol/L (3.5-5.1); SGOT/AST 27 U/L (15-37); SGPT/ALT 17 U/L (13-61); SODIUM 141 mmol/L (136-145); TOT PROT 6.8 g/dl (6.4-8.2)
[2019-01-27] MEDS ORDERED: FUROSEMIDE 40 MG/4 ML INJECTABLE VIAL IVPUSH ONE (19:12)
--- NOTE | 2019-01-27 19:25 | HP ---
CHIEF COMPLAINT: LE EDEMA HISTORY OF PRESENT ILLNESS: Thank you Dr. Combs for allowing [facility] to take part in the ongoing management of your patient. Briefly, this is a 73 y/o female with PMH as stated presenting with 2 weeks of b/l LE edema and worsening knee pain. She has no history of trauma, falls, etc. She is not requiring oxygen and has no noted PND, orthopnea, or marked SOB. Her activity level has been diminished due to the pain. she is unclear if she had any recent medication changes; we are working with the pharmacy to confirm the doses. Last visit to PCP estimated to be ~3 weeks ago. Recent Travel: None PAST MEDICAL HISTORY: S-CHF, Pulmonary HTN, CAD, DM, HTN, HLD, CKD PAST SURGICAL HISTORY: Reviewed; no recent procedures Social History: No current EtOH tobacco or drug abuse Family History: Asked and noncontributory Allergies No Known Allergies Allergy (Verified 01/27/19 17:35) HOME MEDICATIONS: Home Medications Medication Instructions Recorded Allopurinol [Zyloprim -] 100 mg PO DAILY 02/24/16 Omeprazole 20 mg PO DAILY 10/02/16 Carvedilol [Coreg -] 6.25 mg PO BID #60 tablet 02/24/17 Cholecalciferol (Vitamin D3) 1,000 unit PO DAILY 05/24/18 [Vitamin D3] Furosemide [Lasix -] 40 mg PO DAILY 05/24/18 Pravastatin Sodium 20 mg PO HS 05/24/18 Sevelamer Carbonate [Renvela -] 800 mg PO TID 05/24/18 Spironolactone [Aldactone -] 25 mg PO DAILY #60 tablet 05/31/18 Valsartan [Diovan] 40 mg PO DAILY #30 tablet 05/31/18 traMADol HCL [Ultram -] 50 mg PO Q6H PRN #20 tablet MDD 4 05/31/18 Amlodipine Besylate [Norvasc -] 5 mg PO DAILY 10/13/18 Insulin (Levemir) [Levemir Vial] 22 units SQ DAILY@2200 10/13/18 Insulin (Levemir) [Levemir Vial] 24 unit SQ DAILY@0700 10/13/18 Insulin Aspart [Novolog] 10 unit SQ TID 10/13/18 REVIEW OF SYSTEMS 10-sys ROS done and negative aside from HPI PHYSICAL EXAMINATION Vital Signs - 24 hr 01/27/19 01/27/19 16:46 17:38 Temperature 97.9 F Pulse Rate 78 Respiratory 18 Rate Blood Pressure 109/76 O2 Sat by Pulse 97 97 Oximetry (%) GENERAL: Awake, alert, and fully oriented, in no acute distress. HEAD: Normal with no signs of trauma. EYES: Pupils equal, round and reactive to light, extraocular movements intact EARS, NOSE, THROAT: Ears normal, nares patent, oropharynx clear without exudates. Moist mucous membranes. NECK: Normal range of motion, supple without lymphadenopathy, JVD, or masses. LUNGS: Breath sounds equal, clear to auscultation bilaterally. No wheezes, and no crackles. No accessory muscle use. HEART: Regular rate and rhythm, normal S1 and S2 without murmur, rub or gallop. B/L LE edema noted ABDOMEN: Soft, nontender, not distended, normoactive bowel sounds MUSCULOSKELETAL: Normal range of motion at all joints. No bony deformities or tenderness. No CVA tenderness. NEUROLOGICAL: Cranial nerves II-XII intact. Normal speech. Normal gait. PSYCHIATRIC: Cooperative. Good eye contact. Appropriate mood and affect. SKIN: Warm, dry, normal turgor, no rashes or lesions noted, normal capillary refill. Laboratory Results - last 24 hr 01/27/19 01/27/19 01/27/19 17:05 17:30 17:30 WBC 8.0 RBC 4.38 Hgb 9.8 L Hct 30.3 L MCV 69.1 L MCH 22.4 L MCHC 32.5 RDW 15.1 Plt Count 202 MPV 10.9 Absolute Neuts (auto) 5.7 Neutrophils % 71.1 Lymphocytes % 15.6 Monocytes % 9.0 Eosinophils % 3.6 Basophils % 0.7 Nucleated RBC % 0 Sodium Cancelled Potassium Cancelled Chloride Cancelled Carbon Dioxide Cancelled Anion Gap Cancelled BUN Cancelled Creatinine Cancelled Creat Clearance w eGFR Cancelled POC Glucometer 140 Random Glucose Cancelled Calcium Cancelled Phosphorus Cancelled Magnesium Cancelled Total Bilirubin Cancelled AST Cancelled ALT Cancelled Alkaline Phosphatase Cancelled B-Natriuretic Peptide Total Protein Cancelled Albumin Cancelled 01/27/19 01/27/19 01/27/19 17:30 18:20 18:20 WBC RBC Hgb Hct MCV MCH MCHC RDW Plt Count MPV Absolute Neuts (auto) Neutrophils % Lymphocytes % Monocytes % Eosinophils % Basophils % Nucleated RBC % Sodium 141 Potassium 4.4 Chloride 108 H Carbon Dioxide 26 Anion Gap 7 L BUN 44 H Creatinine 2.3 H Creat Clearance w eGFR 20.73 POC Glucometer Random Glucose 148 H Calcium 8.8 Phosphorus 3.4 Magnesium 1.7 L Total Bilirubin 0.1 L AST 27 ALT 17 Alkaline Phosphatase 151 H B-Natriuretic Peptide Cancelled 1108.0 H Total Protein 6.8 Albumin 3.2 L 03/2018 echo: Mild to moderately decreased LVEF 40-45%, mild MR/TR, pulm htn EKG reviewed CXR shows central congestive changes with fullness in soft tissues around the paratracheal and right hilar regions ASSESSMENT/PLAN: 1) LE Edema in the setting of history of Systolic CHF -BNP actually improved compared to prior visits; she has CKD which makes less reliable. Not requiring O2. Consulting her rn pool to adjust any diuresis (appreciate expert opinion). Consider CHERYL stockings. -Got IV Lasix in the ER; will hold off on further diuresis given borderline renal function until AM BMP reviewed; she is stable. Optimizing Mg and K -Monitor strict is and Os, gunite mixer (given active diuresis with hx CHF), and QD weights. Sodium restricted diet. Confirm medications with pharmacy. 2) B/L Knee Pain -Checking b/l XR; consulting PT. No trauma, etc. Was WB at rehab just weaker. -Notably saw Dr. Joshi 05/2018 for what sounds like same complaint and had b/l knee XR done. 3) CKD -Cr ~2.1 at baseline; 2.3 today which isn't technically KIMBERLEE. Monitor renal function with regards to diuresis and if worsens would be reasonable to check FeUrea and consult nephrology 4) Hx Venous Insufficiency -Negative ultrasound in the ER for DVT; has seen Dr. José in the past. Consider repeating OP arterial dopplers. 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 12) Hx Pulmonary HTN -Noted; consider repeating echo. Has seen Dr. Owens in the past. 13) Paratracheal/R-hilar fullness -Obtaining a CT to better delineate anatomy. Visit type - Emergency Visit Emergency Visit: Yes ED Registration Date: 01/27/19 Care time: The patient presented to the Emergency Department on the above date and was hospitalized for further evaluation of their emergent condition. - New Patient This patient is new to me today: Yes Date on this admission: 02/27/19 - Critical Care Critical Care patient: No
[2019-01-27] MEDS ORDERED: ACETAMINOPHEN 325 MG TABLET (FP) PO ONE (19:27)
[2019-01-27] MEDS ORDERED: ACETAMINOPHEN 325 MG TABLET (FP) ONE (19:33)
[2019-01-27] MEDS ORDERED: FUROSEMIDE 40 MG/4 ML INJECTABLE VIAL ONE (19:34)
[2019-01-27] MEDS ORDERED: MAGNESIUM SULF 50% (8.12 MEQ/2 ML-1 GM VIAL) IVPB ONE (20:15)
[2019-01-27] MEDS ORDERED: MAGNESIUM 1GM/D5W - 2 GM/200 ML IVPB IVPB ONE (20:51)
[2019-01-28] MEDS: HEPARIN NA (PORCINE) 5,000 UNITS/ML 1ML VIAL SQ SCH ×3 (00:35→22:52)
[2019-01-28 04:43] VITALS: BMI 43.7
[2019-01-28] MEDS: INSULIN (LEVEMIR) 100 UNITS/ML UNITS SQ SCH ×2 (06:32→22:52)
[2019-01-28] MEDS: traMADol HCL 50 MG TABLET PO PRN ×2 (06:34→17:29)
[2019-01-28] MEDS: INSULIN (NOVOLOG) ASPART 100 UNITS/ML 10ML VIAL SQ SCH ×4 (06:38→17:33)
[2019-01-28 07:36] LABS: HEMATOCRIT 30.8 % (32.4-45.2); HEMOGLOBIN 9.9 GM/dL (10.7-15.3); MCHC 32.1 g/dl (32.0-36.0); MEAN CELL VOLUME 68.6 fl (80-96); MEAN PLT VOLUME 10.8 fl (7.5-11.1); PLATELET COUNT 204 K/MM3 (134-434); RBC 4.49 M/mm3 (3.60-5.2); RDW 15.1 % (11.6-15.6); WHITE BLOOD COUNT 6.4 K/mm3 (4.0-10.0)
[2019-01-28 07:37] LABS: ANION GAP 6 MMOL/L (8-16); BLOOD UREA NITROGEN 41 mg/dL (7-18); CHLORIDE 107 mmol/L (98-107); CO2 28 mmol/L (21-32); GLUCOSE,RANDOM 146 mg/dL (74-106); MAGNESIUM 2.3 mg/dL (1.8-2.4); SODIUM 142 mmol/L (136-145)
[2019-01-28] MEDS: SEVELAMER CARBONATE 800 MG TAB (FP) PO SCH ×3 (08:25→17:29)
[2019-01-28] MEDS ORDERED: PT OWN MED DRAWER 7, Y5N ONE (08:51)
[2019-01-28] MEDS ORDERED: amLODIPine BESYLATE 5 MG TABLET (FP) PO SCH (10:00)
[2019-01-28] MEDS ORDERED: CARVEDILOL 6.25 MG TABLET (FP) PO SCH (10:00)
[2019-01-28] MEDS ORDERED: VALSARTAN 40 MG TABLET (FP) PO SCH (10:00)
[2019-01-28] MEDS: SPIRONOLACTONE 25 MG TABLET (FP) PO SCH (10:22)
[2019-01-28] MEDS: PANTOPRAZOLE 20 MG TABLET (FP) PO SCH (10:23)
[2019-01-28] MEDS: ALLOPURINOL 100 MG TABLET (FP) PO SCH (10:23)
--- NOTE | 2019-01-28 12:21 | PN ---
Progress Note (short form) - Note Progress Note: pt seen/ examined chart reviewed awake/ comfortable pain ok-- knees denies cp/sob afebrile Vital Signs Temp 98 F 01/28/19 01:40 Pulse 72 01/28/19 01:40 Resp 18 01/28/19 01:40 BP 138/58 L 01/28/19 01:40 Pulse Ox 100 01/28/19 01:40 Intake & Output 01/27/19 01/28/19 01/28/19 23:59 11:59 23:59 Intake Total 700 Balance 700 Weight 200 lb 247 lb Intake: IV 0 s/l 0 IVPB 100 Oral 600 Other: Voiding Method Incontinent # Unmeasured Voids Void 3 Bowel Movement No Height 5 ft 3 in 5 ft 3 in Body Mass Index (BMI) 35.4 43.7 Weight Measurement Method Patient Lift Scale Weight Measurement Method Est/Stated by Patient Active Medications Allopurinol (Zyloprim -) 100 mg PO DAILY [facility] Last Admin: 01/28/19 10:23 Dose: 100 mg Amlodipine Besylate (Norvasc -) 5 mg PO DAILY [facility] Last Admin: 01/28/19 10:23 Dose: 5 mg Atorvastatin Calcium (Lipitor -) 10 mg PO HS [facility] Carvedilol (Coreg -) 6.25 mg PO BID [facility] Last Admin: 01/28/19 10:22 Dose: 6.25 mg Heparin Sodium (Porcine) (Heparin -) 5,000 unit SQ BID [facility] Last Admin: 01/28/19 10:21 Dose: 5,000 unit Insulin Aspart (Novolog Vial) 10 units SQ TIDAC [facility] Last Admin: 01/28/19 06:38 Dose: 10 unit Insulin Detemir (Levemir Vial) 22 units SQ DAILY@2200 [facility] Insulin Detemir (Levemir Vial) 24 units SQ DAILY@0700 [facility] Last Admin: 01/28/19 06:32 Dose: 24 unit Pantoprazole Sodium (Protonix -) 20 mg PO DAILY [facility] Last Admin: 01/28/19 10:23 Dose: 20 mg Sevelamer Carbonate (Renvela -) 800 mg PO TIDCM [facility] Last Admin: 01/28/19 08:25 Dose: 800 mg Spironolactone (Aldactone -) 25 mg PO DAILY [facility] Last Admin: 01/28/19 10:22 Dose: 25 mg Tramadol HCl (Ultram -) 50 mg PO Q6H PRN PRN Reason: PAIN LEVEL 6-10 Last Admin: 01/28/19 06:34 Dose: 50 mg Valsartan (Diovan -) 40 mg PO DAILY [facility] Last Admin: 01/28/19 10:22 Dose: 40 mg CBC, BMP 01/28/19 06:00 01/28/19 06:00 Physical Examination Constitutional: Yes: No Distress,Comfortable. Obese Eyes: Yes: WNL, Conjunctiva Clear HENT: Yes: WNL Neck: Yes: Supple, Trachea Midline Cardiovascular: Yes: Regular Rate and Rhythm Respiratory: Yes: CTA Bilaterally Gastrointestinal: Yes: Normal Bowel Sounds, Soft Edema: trace Neurological: Yes: alert Psychiatric: Yes: awake/ calm knees -- no redness/mild swelling Assessment/Plan Discussed continue present care monitor bgm pt has severe arthritis of knees will consult ortho also will follow Problem List - Problems (1) Acute metabolic encephalopathy Code(s): G93.41 - METABOLIC ENCEPHALOPATHY (2) Anemia Code(s): D64.9 - ANEMIA, UNSPECIFIED Qualifiers: Anemia type: due to chronic kidney disease (3) Biventricular ICD (implantable cardioverter-defibrillator) in place Code(s): Z95.810 - PRESENCE OF AUTOMATIC (IMPLANTABLE) CARDIAC DEFIBRILLATOR (4) CAD (coronary artery disease) Code(s): I25.10 - ATHSCL HEART DISEASE OF [place] CORONARY ARTERY W/O ANG PCTRS Qualifiers: Coronary Disease-Associated Artery/Lesion type: [place] artery [place] vs. transplanted heart: [place] heart Associated angina: without angina Qualified Code(s): I25.10 - Atherosclerotic heart disease of [place] coronary artery without angina pectoris (5) IDDM (insulin dependent diabetes mellitus) Code(s): E11.9 - TYPE 2 DIABETES MELLITUS WITHOUT COMPLICATIONS; Z79.4 - SNF (CURRENT) USE OF INSULIN (6) Knee pain, left Code(s): M25.562 - PAIN IN LEFT KNEE
--- NOTE | 2019-01-28 15:25 | CONSULT ---
Consult - text type - Consultation Consultation Note: ORTHOPEDIC SURGERY CONSULTATION NOTE Department of Orthopedic Surgery HISTORY OF PRESENT ILLNESS Ms. Kyle is a 73 year old female significant past medical history of Anxiety, [place], HLD, DM, CAD, Venous Insufficiency, who presents to [facility] with two weeks of worsening bilateral lower extremity edema. The patient notes she has been endorsing 25 years of LE swelling, which, has gotten progressively worse the last 2 weeks. The orthopedic service was consulted for bilateral knee pain. The patient denies any specific injury or trauma. The patient notes improved pain in her knees since in the hospital. Denies any other injuries. Denies numbness, tingling or other constitutional complaints. Denies tobacco use, drug use, alcohol abuse. The patient uses no assistive devices at baseline. FAMILY HISTORY non-contributory REVIEW OF SYMPTOMS A twelve-point review of systems was performed and was negative except as noted in HPI. PHYSICAL EXAM Constitutional: Alert and oriented to person, place, and time. Appears well- developed and well-nourished. No acute distress, appropriate mood and affect. Right Lower Extremity: Skin warm, dry, and intact; no lesions, rashes or ulcers noted. Muscle mass equal and symmetric to contralateral side. No atrophy noted. No masses or effusions noted. Mild tenderness to palpation over the medial and lateral joint lines; nontender throughout rest of extremity. No cords or calf tenderness No significant calf/ankle edema. Full passive and active ROM, free from pain of the knee 0-120 degrees. Able to SLR without pain. Joints stable with no pathologic laxity. EHL/TA/GS motor intact; SILT distally; 2+ DP pulses; Cap refill brisk. Tone and reflexes normal. No signs of infection or septic joint. Left Lower Extremity: Skin warm, dry, and intact; no lesions, rashes or ulcers noted. Muscle mass equal and symmetric to contralateral side. No atrophy noted. No masses or effusions noted. Mild tenderness to palpation over the medial and lateral joint lines; nontender throughout rest of extremity. No cords or calf tenderness No significant calf/ankle edema. Full passive and active ROM, free from pain of the knee 0-120 degrees. Able to SLR without pain. Joints stable with no pathologic laxity. EHL/TA/GS motor intact; SILT distally; 2+ DP pulses; Cap refill brisk. Tone and reflexes normal. No signs of infection or septic joint. Active Problems Problem Status Category Onset Venous insufficiency of both lower extremities Acute Medical Past Medical History Cardio/Vascular CAD,HTN,Hyperlipdemia,Other Pulmonary COPD Gastrointestinal GERD,Other Renal/ Renal Inusuff Heme/Onc Anemia Rheumatology Gout Endocrine Diabetes Mellitus Past Surgical History Past Surgical History AICD,Stent Social History Smoking history Never smoked Aproximately how many 0 cigarettes per day Hx Alcohol Use No ADL Support Services Allergies Allergy/AdvReac Type Severity Reaction Status Date / Time No Known Allergies Allergy Verified 01/27/19 17:35 Active Medications Generic Name Dose Route Start Last Admin Trade Name Freq PRN Reason Stop Dose Admin Allopurinol 100 mg 01/28/19 10:00 01/28/19 10:23 Zyloprim - PO 100 mg DAILY [facility] Administration Amlodipine Besylate 5 mg 01/28/19 10:00 01/28/19 10:23 Norvasc - PO 5 mg DAILY [facility] Administration Atorvastatin Calcium 10 mg 01/28/19 22:00 Lipitor - PO HS [facility] Carvedilol 6.25 mg 01/28/19 10:00 01/28/19 10:22 Coreg - PO 6.25 mg BID [facility] Administration Heparin Sodium (Porcine) 5,000 unit 01/27/19 22:00 01/28/19 10:21 Heparin - SQ 5,000 unit BID [facility] Administration Insulin Aspart 10 units 01/28/19 07:00 01/28/19 12:57 Novolog Vial SQ 10 unit TIDAC [facility] Administration Insulin Detemir 22 units 01/28/19 22:00 Levemir Vial SQ DAILY@2200 [facility] Insulin Detemir 24 units 01/28/19 07:00 01/28/19 06:32 Levemir Vial SQ 24 unit DAILY@0700 [facility] Administration Pantoprazole Sodium 20 mg 01/28/19 10:00 01/28/19 10:23 Protonix - PO 20 mg DAILY [facility] Administration Sevelamer Carbonate 800 mg 01/28/19 08:00 01/28/19 12:53 Renvela - PO 800 mg TIDCM [facility] Administration Spironolactone 25 mg 01/28/19 10:00 01/28/19 10:22 Aldactone - PO 25 mg DAILY [facility] Administration Tramadol HCl 50 mg 01/28/19 01:57 01/28/19 06:34 Ultram - PO 50 mg Q6H PRN Administration PAIN LEVEL 6-10 Valsartan 40 mg 01/28/19 10:00 01/28/19 10:22 Diovan - PO 40 mg DAILY [facility] Administration Vital Signs (last) Temp Pulse Resp BP Pulse Ox 98 F 72 18 138/58 L 100 01/28/19 01:40 01/28/19 01:40 01/28/19 01:40 01/28/19 01:40 01/28/19 01:40 Intake and Output 01/26/19 01/27/19 01/28/19 23:59 23:59 23:59 Intake Total 700 Balance 700 Intake: IV 0 s/l 0 IVPB 100 Oral 600 Other: Voiding Method Incontinent # Unmeasured Voids Void 3 Bowel Movement No Weight 200 lb 247 lb Height 5 ft 3 in 5 ft 3 in Body Mass Index (BMI) 35.4 43.7 Weight Measurement Method Patient Lift Scale Weight Measurement Method Est/Stated by Patient Laboratory 01/28/19 06:00 01/28/19 06:00 IMAGING I personally reviewed all radiographs, and other imaging. They demonstrate bilateral tricompartmental knee arthritis. No fractures, dislocations or bony lesions seen. ASSESSMENT AND PLAN Ms. Kyle is a 73 year old female presenting with bilateral knee arthritis - improved pain control. We have reviewed the imaging and clinical findings in detail, as well as their potential implications. Plan: - Pain Control - DVT prophylaxis - WBAT / Physical Therapy - Continue Medical management (heel decubiti precautions, nutrition, venous insufficiency) - Consider vascular consult - No further orthopedic surgery intervention at this time. All questions were answered. Thank you for involving our team in the care of this patient. Please have patient follow up in our office in 1-2 weeks [phone].
--- NOTE | 2019-01-28 15:47 | PN ---
Progress Note (short form) - Note Progress Note: Chief Complaint: Events noted, notes reviewed, chronic dyspnea with persistent bilateral lower extremity edema History of Present Illness: Seen and examined. Full consult dictated Medications: Current Medications Allopurinol (Zyloprim -) 100 mg PO DAILY [facility] Last Admin: 01/28/19 10:23 Dose: 100 mg Amlodipine Besylate (Norvasc -) 5 mg PO DAILY [facility] Last Admin: 01/28/19 10:23 Dose: 5 mg Atorvastatin Calcium (Lipitor -) 10 mg PO [facility] Carvedilol (Coreg -) 6.25 mg PO BID [facility] Last Admin: 01/28/19 10:22 Dose: 6.25 mg Heparin Sodium (Porcine) (Heparin -) 5,000 unit SQ BID [facility] Last Admin: 01/28/19 10:21 Dose: 5,000 unit Insulin Aspart (Novolog Vial) 10 units SQ TIDAC [facility] Last Admin: 01/28/19 12:57 Dose: 10 unit Insulin Detemir (Levemir Vial) 22 units SQ DAILY@2200 [facility] Insulin Detemir (Levemir Vial) 24 units SQ DAILY@0700 [facility] Last Admin: 01/28/19 06:32 Dose: 24 unit Pantoprazole Sodium (Protonix -) 20 mg PO DAILY [facility] Last Admin: 01/28/19 10:23 Dose: 20 mg Sevelamer Carbonate (Renvela -) 800 mg PO TIDCM [facility] Last Admin: 01/28/19 12:53 Dose: 800 mg Spironolactone (Aldactone -) 25 mg PO DAILY [facility] Last Admin: 01/28/19 10:22 Dose: 25 mg Tramadol HCl (Ultram -) 50 mg PO Q6H PRN PRN Reason: PAIN LEVEL 6-10 Last Admin: 01/28/19 06:34 Dose: 50 mg Valsartan (Diovan -) 40 mg PO DAILY [facility] Last Admin: 01/28/19 10:22 Dose: 40 mg Vital Signs: Last Vital Signs Temp Pulse Resp BP Pulse Ox 98 F 72 18 138/58 L 100 01/28/19 01:40 01/28/19 01:40 01/28/19 01:40 01/28/19 01:40 01/28/19 01:40 Intake & Output 01/25/19 01/26/19 01/27/19 01/28/19 23:59 23:59 23:59 23:59 Intake Total 700 Balance 700 Weight 200 lb 247 lb Neck: Supple Negative JVD no bruit appreciated Respiratory: Diminished breath sounds at the bases Bilaterally Cardiovascular: S1 S2 Regular Rate and Rhythm Grade 1-2/6 NOAH Gastrointestinal: Soft Benign Normal Bowel Sounds Ext: Bilateral 1+ Edema Labs: CBC, BMP 01/28/19 06:00 01/28/19 06:00 Hepatic Panel Total Bilirubin 0.1 mg/dL (0.2-1) L 01/27/19 18:20 AST 27 U/L (15-37) 01/27/19 18:20 ALT 17 U/L (13-61) 01/27/19 18:20 Alkaline Phosphatase 151 U/L (45-117) H 01/27/19 18:20 Albumin 3.2 g/dl (3.4-5.0) L 01/27/19 18:20 Assessment/Plan ASSESSMENT: 1. Clinical presentation is consistent with chronic class I-II [place] [employer] classification left ventricular failure related to diastolic/ systolic left ventricular dysfunction, compensated/euvolemic 2. 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 HTN 5. DM 6. Hypercholesterolemia 7. Pulmonary hypertension related to the above-noted diastolic/systolic left ventricular dysfunction 8. Chronic kidney disease. 9. Chronic anemia PLAN: 1. Continue Carvedilol and titrate dose as needed and tolerated 2. Continue Diovan with caution and close monitoring of renal function, titrate dose as needed and tolerated 3. Resume Lasix and continue Aldactone with close monitoring of renal function and electrolytes 4. Discontinuation of Norvasc, could be contributing to peripheral edema 5. Continue Atorvastatin 6. Resume Ecotrin therapy 7. ICD interrogation if not performed recently Marissa Ribera M.D.
--- NOTE | 2019-01-28 16:40 | EKG ---
Test Reason : Blood Pressure : / mmHG Vent. Rate : 073 BPM Atrial Rate : 073 BPM P-R Int : 000 ms QRS Dur : 172 ms QT Int : 458 ms P-R-T Axes : 042 111 082 degrees QTc Int : 504 ms Ventricular-paced rhythm ABNORMAL ECG WHEN COMPARED WITH ECG OF 24-MAY-2018 11:27, VENT. RATE HAS DECREASED BY 18 BPM Confirmed by WILLIAM NOVA MD ([id number]) on 01/28/2019 4:39:38 PM Referred By: Confirmed By:WILLIAM NOVA MD
--- NOTE | 2019-01-28 16:45 | CONS ---
DATE OF CONSULTATION: 01/28/2019 CONSULTATION REQUESTED BY: Iesha Combs MD CHIEF COMPLAINT: Evaluation of dyspnea, bilateral lower extremity edema. Patient known to our service from prior hospitalizations. A 73-year-old female of [place] descent with known history of coronary artery disease status post percutaneous coronary intervention, stenting, angina pectoris, systolic/diastolic left ventricular dysfunction with chronic class I-II [place] Heart Association classification left ventricular failure post DIRECTOR OF AGRONOMY-D implant, hypertensive cardiovascular disease, diabetes mellitus, hypercholesterolemia, pulmonary hypertension related to the above-noted systolic/diastolic left ventricular dysfunction, chronic bilateral lower extremity edema, degenerative joint disease, who presented to [facility] with increasing dyspnea and bilateral lower extremity edema, in view of which cardiovascular evaluation was requested. Patient currently dyspnea with [id number] physical exertion, although patient's ambulation remains limited related to the above-noted degenerative joint disease. Patient denies any orthopnea or paroxysmal nocturnal dyspnea. Patient reports intermittent bilateral lower extremity edema. Patient denies any chest discomfort. Patient denies any palpitation, dizziness, lightheadedness, or syncope. Patient reports fatigue and tiredness. PAST MEDICAL HISTORY: Coronary artery disease status post percutaneous coronary intervention, stenting, angina pectoris, systolic/diastolic left ventricular dysfunction with chronic class I-II [place] Heart Association classification left ventricular failure, post DIRECTOR OF AGRONOMY-D implant, pulmonary hypertension related to the above-noted systolic/diastolic left ventricular dysfunction, hypertensive cardiovascular disease, diabetes mellitus, hypercholesterolemia, chronic kidney disease, degenerative joint disease. SOCIAL HISTORY: Nonsmoker. Denies alcohol intake. FAMILY HISTORY: No family history of coronary artery disease. ALLERGIES: None reported. MEDICATIONS: Medical therapy currently includes allopurinol 100 mg once a day, Norvasc 5 mg once a day, Lipitor 10 once a day, Coreg 6.25 mg twice a day, subcutaneous heparin 5000 units twice a day subcutaneously, insulin coverage, Protonix 20 mg once a day, Renvela 800 mg 3 times a day, Aldactone 25 mg once a day, tramadol 50 mg every 6 hours as needed, Diovan 60 mg once a day. REVIEW OF SYSTEMS: Head and Neck: Denies headache, photophobia, blurring of vision. Respiratory: No cough or sputum production. Cardiovascular: As noted above. Gastrointestinal: Denies nausea, vomiting, diarrhea, abdominal discomfort. Genitourinary: No symptoms reported. Musculoskeletal: Degenerative joint disease. PHYSICAL EXAMINATION: Vital Signs: Blood pressure is 138/58 mmHg. Pulse rate is 72 beats per minute. Temperature 98 degrees Fahrenheit. Head and Neck: Pupils equal, react to light and accommodation. Extraocular movements are intact. Anicteric sclerae. Negative JVD. No bruit appreciated. Chest: Diminished breath sounds at the bases bilaterally. Cardiovascular: S1, S2 regular. Grade 1-2/6 systolic ejection murmur. No clicks or gallops. Abdomen: Soft, benign, normoactive bowel sounds. Extremities: One-plus bilateral edema, decreased distal pulses, chronic venous stasis changes were noted. STUDIES: Electrocardiogram revealed sinus rhythm with ventricular pacing, appropriate sensing and capture. Chest x-ray not available. CBC revealed white cell count 6.4, hemoglobin 9.9, platelet count 204. Basic metabolic profile revealed a sodium 142, potassium 4.0, BUN 41, creatinine 2.0, glucose 146. ASSESSMENT: 1. Clinical presentation is consistent with chronic class I-II [place] Heart Association classification left ventricular failure related to systolic/diastolic left ventricular dysfunction, compensated/euvolemic. 2. Coronary artery disease post percutaneous coronary intervention, stenting, angina pectoris, clinically stable. 3. Post cardiac resynchronization therapy defibrillator. 4. Hypertensive cardiovascular disease. 5. Diabetes mellitus. 6. Hypercholesterolemia. 7. Pulmonary hypertension related to the above-noted systolic/diastolic left ventricular dysfunction. 8. Chronic kidney disease. 9. Chronic anemia. RECOMMENDATIONS: 1. Continuation of carvedilol and titration of dosage as needed and as tolerated. 2. Continuation of Diovan with caution and close monitoring of renal function. Titrate dosage as needed and as tolerated. 3. Resumption of Lasix and continuation of Aldactone therapy, with close monitoring of renal function and electrolytes. 4. Continuation of Lipitor therapy. 5. Resumption of Ecotrin therapy. 6. Discontinuation of Norvasc therapy since it could be contributing to the above-noted peripheral edema. 7. ICD interrogation if not performed recently. ASHLI JERNIGAN M.D. ESTRELLA/[id number]
[2019-01-28] MEDS: VALSARTAN 40 MG TABLET (FP) PO SCH (17:32)
[2019-01-28] MEDS: CARVEDILOL 12.5 MG TABLET (FP) PO SCH ×2 (17:33→22:52)
[2019-01-28] MEDS: ATORVASTATIN CA 10 MG TABLET (FP) PO SCH (22:52)
[2019-01-29] MEDS: INSULIN (NOVOLOG) ASPART 100 UNITS/ML 10ML VIAL SQ SCH ×3 (06:26→17:03)
[2019-01-29] MEDS: INSULIN (LEVEMIR) 100 UNITS/ML UNITS SQ SCH ×2 (06:27→22:29)
[2019-01-29] MEDS: SEVELAMER CARBONATE 800 MG TAB (FP) PO SCH ×3 (08:20→17:02)
[2019-01-29] MEDS: FUROSEMIDE 40 MG TABLET (FP) PO SCH (09:19)
[2019-01-29] MEDS: PANTOPRAZOLE 20 MG TABLET (FP) PO SCH (09:19)
[2019-01-29] MEDS: VALSARTAN 40 MG TABLET (FP) PO SCH (09:19)
[2019-01-29] MEDS: CARVEDILOL 12.5 MG TABLET (FP) PO SCH ×2 (09:19→22:30)
[2019-01-29] MEDS: ASPIRIN COATED 81 MG TABLET.EC PO SCH (09:19)
[2019-01-29] MEDS: ALLOPURINOL 100 MG TABLET (FP) PO SCH (09:19)
[2019-01-29] MEDS: SPIRONOLACTONE 25 MG TABLET (FP) PO SCH (09:19)
[2019-01-29] MEDS: HEPARIN NA (PORCINE) 5,000 UNITS/ML 1ML VIAL SQ SCH ×2 (09:23→22:29)
[2019-01-29 09:37] LABS: BASO % 0.5 % (0-2.0); EOS % 4.2 % (0-4.5); HEMATOCRIT 29.7 % (32.4-45.2); HEMOGLOBIN 9.4 GM/dL (10.7-15.3); LYMPH % 24.7 % (8-40); MCH 21.9 pg (25.7-33.7); MCHC 31.8 g/dl (32.0-36.0); MEAN CELL VOLUME 68.9 fl (80-96); MEAN PLT VOLUME 10.7 fl (7.5-11.1); MONO % 8.4 % (3.8-10.2); NEUT % 62.2 % (42.8-82.8); PLATELET COUNT 200 K/MM3 (134-434); RBC 4.31 M/mm3 (3.60-5.2); RDW 14.9 % (11.6-15.6); WHITE BLOOD COUNT 6.2 K/mm3 (4.0-10.0)
[2019-01-29 10:16] LABS: ALBUMIN 2.8 g/dl (3.4-5.0); ALK PHOS 141 U/L (45-117); ANION GAP 6 MMOL/L (8-16); BILIRUBIN,TOTAL 0.1 mg/dL (0.2-1); BLOOD UREA NITROGEN 38 mg/dL (7-18); CALCIUM 8.7 mg/dL (8.5-10.1); CHLORIDE 107 mmol/L (98-107); CHOLESTEROL 117 mg/dL (50-200); CO2 28 mmol/L (21-32); CREATININE 2.1 mg/dL (0.55-1.3); GLUCOSE,RANDOM 132 mg/dL (74-106); HDL CHOLESTEROL 55 mg/dL (40-60); POTASSIUM 4.5 mmol/L (3.5-5.1); SGOT/AST 20 U/L (15-37); SGPT/ALT 14 U/L (13-61); SODIUM 141 mmol/L (136-145); TOT PROT 6.4 g/dl (6.4-8.2); TRIGLYCERIDES 77 mg/dL (0-150)
[2019-01-29 13:25] LABS: ANISOCYTOSIS 2+; MACROCYTOSIS 0; OVALOCYTE 1+; PLATELET ESTIMATE NORMAL; TARGET CELLS 2+
--- NOTE | 2019-01-29 13:25 | PN ---
Progress Note (short form) - Note Progress Note: Chief Complaint: Events noted, notes reviewed, reports chronic dyspnea with persistent bilateral lower extremity edema, denies any chest pain History of Present Illness: Seen and examined. Events noted, notes reviewed, reports chronic dyspnea with persistent bilateral lower extremity edema, denies any chest pain Medications: Current Medications Allopurinol (Zyloprim -) 100 mg PO DAILY [facility] Last Admin: 01/29/19 09:19 Dose: 100 mg Aspirin (Ecotrin -) 81 mg PO DAILY [facility] Last Admin: 01/29/19 09:19 Dose: 81 mg Atorvastatin Calcium (Lipitor -) 10 mg PO HS [facility] Last Admin: 01/28/19 22:52 Dose: 10 mg Carvedilol (Coreg -) 12.5 mg PO BID [facility] Last Admin: 01/29/19 09:19 Dose: 12.5 mg Furosemide (Lasix -) 40 mg PO DAILY [facility] Last Admin: 01/29/19 09:19 Dose: 40 mg Heparin Sodium (Porcine) (Heparin -) 5,000 unit SQ BID [facility] Last Admin: 01/29/19 09:23 Dose: 5,000 unit Insulin Aspart (Novolog Vial) 10 units SQ TIDAC [facility] Last Admin: 01/29/19 11:50 Dose: 10 unit Insulin Detemir (Levemir Vial) 22 units SQ DAILY@2200 [facility] Last Admin: 01/28/19 22:52 Dose: 22 units Insulin Detemir (Levemir Vial) 24 units SQ DAILY@0700 [facility] Last Admin: 01/29/19 06:27 Dose: 24 unit Pantoprazole Sodium (Protonix -) 20 mg PO DAILY [facility] Last Admin: 01/29/19 09:19 Dose: 20 mg Sevelamer Carbonate (Renvela -) 800 mg PO TIDCM [facility] Last Admin: 01/29/19 11:48 Dose: 800 mg Spironolactone (Aldactone -) 25 mg PO DAILY [facility] Last Admin: 01/29/19 09:19 Dose: 25 mg Tramadol HCl (Ultram -) 50 mg PO Q6H PRN PRN Reason: PAIN LEVEL 6-10 Last Admin: 01/28/19 17:29 Dose: 50 mg Valsartan (Diovan -) 80 mg PO DAILY [facility] Last Admin: 01/29/19 09:19 Dose: 80 mg Vital Signs: Last Vital Signs Temp Pulse Resp BP Pulse Ox 98.2 F 74 18 119/66 97 01/29/19 09:17 01/29/19 09:17 01/29/19 09:17 01/29/19 09:17 01/29/19 09:25 Intake & Output 01/26/19 01/27/19 01/28/19 01/29/19 23:59 23:59 23:59 23:59 Intake Total 1200 200 Balance 1200 200 Weight 200 lb 247 lb 242 lb 14.4 oz Neck: Supple Negative JVD no bruit appreciated Respiratory: Diminished breath sounds at the bases Bilaterally Cardiovascular: S1 S2 Regular Rate and Rhythm Grade 1-2/6 NOAH Gastrointestinal: Soft Benign Normal Bowel Sounds Ext: Bilateral 1+ Edema Labs: CBC, BMP 01/29/19 08:56 01/29/19 08:56 Assessment/Plan ASSESSMENT: 1. Clinical presentation is consistent with chronic class I-II [place] [employer] classification left ventricular failure related to diastolic/ systolic left ventricular dysfunction, compensated/euvolemic 2. CAD post PCI/stent, angina pectoris stable 3. Post EMERGENCY MANAGEMENT COORDINATOR-D 4. HTN 5. DM 6. Hypercholesterolemia 7. Pulmonary hypertension related to the above-noted diastolic/systolic left ventricular dysfunction 8. Chronic kidney disease. 9. Chronic anemia PLAN: 1. Continue Carvedilol 2. Continue Diovan with caution and close monitoring of renal function 3. Continue Lasix and continue Aldactone with close monitoring of renal function and electrolytes 4. Continue Atorvastatin 5. Continue Ecotrin 6. ICD interrogation if not performed recently Marissa Ribera M.D.
--- NOTE | 2019-01-29 13:38 | PN ---
Progress Note (short form) - Note Progress Note: comfortable no new issues Vital Signs Temp 98.2 F 01/29/19 09:17 Pulse 74 01/29/19 09:17 Resp 18 01/29/19 09:17 BP 119/66 01/29/19 09:17 Pulse Ox 97 01/29/19 09:25 Intake & Output 01/28/19 01/29/19 01/29/19 23:59 11:59 23:59 Intake Total 500 200 Balance 500 200 Weight 242 lb 14.4 oz Intake: Oral 200 TPN/PPN 500 Other: Voiding Method Incontinent Incontinent # Unmeasured Voids Void 2 Bowel Movement Yes # Bowel Movements 1 Weight Measurement Method Chair Scale Active Medications Allopurinol (Zyloprim -) 100 mg PO DAILY [facility] Last Admin: 01/29/19 09:19 Dose: 100 mg Aspirin (Ecotrin -) 81 mg PO DAILY [facility] Last Admin: 01/29/19 09:19 Dose: 81 mg Atorvastatin Calcium (Lipitor -) 10 mg PO HS [facility] Last Admin: 01/28/19 22:52 Dose: 10 mg Carvedilol (Coreg -) 12.5 mg PO BID [facility] Last Admin: 01/29/19 09:19 Dose: 12.5 mg Furosemide (Lasix -) 40 mg PO DAILY [facility] Last Admin: 01/29/19 09:19 Dose: 40 mg Heparin Sodium (Porcine) (Heparin -) 5,000 unit SQ BID [facility] Last Admin: 01/29/19 09:23 Dose: 5,000 unit Insulin Aspart (Novolog Vial) 10 units SQ TIDAC [facility] Last Admin: 01/29/19 11:50 Dose: 10 unit Insulin Detemir (Levemir Vial) 22 units SQ DAILY@2200 [facility] Last Admin: 01/28/19 22:52 Dose: 22 units Insulin Detemir (Levemir Vial) 24 units SQ DAILY@0700 [facility] Last Admin: 01/29/19 06:27 Dose: 24 unit Pantoprazole Sodium (Protonix -) 20 mg PO DAILY [facility] Last Admin: 01/29/19 09:19 Dose: 20 mg Sevelamer Carbonate (Renvela -) 800 mg PO TIDCM [facility] Last Admin: 01/29/19 11:48 Dose: 800 mg Spironolactone (Aldactone -) 25 mg PO DAILY [facility] Last Admin: 01/29/19 09:19 Dose: 25 mg Tramadol HCl (Ultram -) 50 mg PO Q6H PRN PRN Reason: PAIN LEVEL 6-10 Last Admin: 01/28/19 17:29 Dose: 50 mg Valsartan (Diovan -) 80 mg PO DAILY [facility] Last Admin: 01/29/19 09:19 Dose: 80 mg CBC, BMP 01/29/19 08:56 01/29/19 08:56 Physical Examination Constitutional: Yes: No Distress,Comfortable. Obese Eyes: Yes: WNL, Conjunctiva Clear HENT: Yes: WNL Neck: Yes: Supple, Trachea Midline Cardiovascular: Yes: Regular Rate and Rhythm Respiratory: Yes: CTA Bilaterally Gastrointestinal: Yes: Normal Bowel Sounds, Soft Edema: trace. chronic skin changes . Neurological: Yes: alert Psychiatric: Yes: awake/ calm knees -- no redness/mild swelling Assessment/Plan Discussed continue present care monitor bgm orto consult noted will follow avoid nsaids d/c planning pt wants to go home only Problem List - Problems (1) Acute metabolic encephalopathy Code(s): G93.41 - METABOLIC ENCEPHALOPATHY (2) Anemia Code(s): D64.9 - ANEMIA, UNSPECIFIED Qualifiers: Anemia type: due to chronic kidney disease (3) Biventricular ICD (implantable cardioverter-defibrillator) in place Code(s): Z95.810 - PRESENCE OF AUTOMATIC (IMPLANTABLE) CARDIAC DEFIBRILLATOR (4) CAD (coronary artery disease) Code(s): I25.10 - ATHSCL HEART DISEASE OF [place] CORONARY ARTERY W/O ANG PCTRS Qualifiers: Coronary Disease-Associated Artery/Lesion type: [place] artery [place] vs. transplanted heart: [place] heart Associated angina: without angina Qualified Code(s): I25.10 - Atherosclerotic heart disease of [place] coronary artery without angina pectoris (5) IDDM (insulin dependent diabetes mellitus) Code(s): E11.9 - TYPE 2 DIABETES MELLITUS WITHOUT COMPLICATIONS; Z79.4 - GROUP HOME (CURRENT) USE OF INSULIN (6) Knee pain, left Code(s): M25.562 - PAIN IN LEFT KNEE
[2019-01-29] MEDS: ATORVASTATIN CA 10 MG TABLET (FP) PO SCH (22:29)
[2019-01-29] MEDS: traMADol HCL 50 MG TABLET PO PRN (22:30)
[2019-01-30] MEDS: INSULIN (LEVEMIR) 100 UNITS/ML UNITS SQ SCH ×2 (06:52→22:26)
[2019-01-30] MEDS: INSULIN (NOVOLOG) ASPART 100 UNITS/ML 10ML VIAL SQ SCH ×3 (06:52→17:12)
[2019-01-30] MEDS: SPIRONOLACTONE 25 MG TABLET (FP) PO SCH (09:42)
[2019-01-30] MEDS: ASPIRIN COATED 81 MG TABLET.EC PO SCH (09:42)
[2019-01-30] MEDS: SEVELAMER CARBONATE 800 MG TAB (FP) PO SCH ×3 (09:42→17:12)
[2019-01-30] MEDS: PANTOPRAZOLE 20 MG TABLET (FP) PO SCH (09:42)
[2019-01-30] MEDS: CARVEDILOL 12.5 MG TABLET (FP) PO SCH ×2 (09:42→22:28)
[2019-01-30] MEDS: VALSARTAN 40 MG TABLET (FP) PO SCH (09:42)
[2019-01-30] MEDS: HEPARIN NA (PORCINE) 5,000 UNITS/ML 1ML VIAL SQ SCH ×2 (09:42→22:26)
[2019-01-30] MEDS: FUROSEMIDE 40 MG TABLET (FP) PO SCH (09:42)
[2019-01-30] MEDS: ALLOPURINOL 100 MG TABLET (FP) PO SCH (09:43)
--- NOTE | 2019-01-30 10:07 | DS ---
Physical Examination Vital Signs: Vital Signs Temperature 97.9 F 01/30/19 05:58 Pulse Rate 85 01/30/19 05:58 Respiratory Rate 18 01/30/19 05:58 Blood Pressure 116/62 01/30/19 05:58 O2 Sat by Pulse Oximetry (%) 97 01/29/19 21:00 Findings/Remarks: comfortable no new issues. Pain under control Constitutional: Yes: No Distress, Calm, Obese Eyes: Yes: Conjunctiva Clear Neck: Yes: Supple Cardiovascular: Yes: Regular Rate and Rhythm Respiratory: Yes: CTA Bilaterally Gastrointestinal: Yes: Soft, Abdomen, Obese Edema: No Neurological: Yes: Alert Psychiatric: Yes: Alert Labs: CBC, BMP 01/29/19 08:56 01/29/19 08:56 Discharge Summary Reason For Visit: VENOUS INSUFFICIENCY OF BOTH LOWER EXTREMITIES Current Active Problems Venous insufficiency of both lower extremities (Acute) Hospital Course: admitted due to not feeling well pain in the knees Overall stable orthopedics consultation taken Patient has multiple issues as I strongly advised--- She should go for short-term rehabilitation Patient refuses Will discharge today medications reconciled Follow up in office in 2 weeks Condition: Stable - Instructions Disposition: HOME - Home Medications Comprehensive Discharge Medication List: Ambulatory Orders Allopurinol [Zyloprim -] 100 mg PO DAILY 02/24/16 Omeprazole 20 mg PO DAILY 10/02/16 Cholecalciferol (Vitamin D3) [Vitamin D3] 1,000 unit PO DAILY 05/24/18 Furosemide [Lasix -] 40 mg PO DAILY 05/24/18 Pravastatin Sodium 20 mg PO HS 05/24/18 Sevelamer Carbonate [Renvela -] 800 mg PO TID 05/24/18 Spironolactone [Aldactone -] 25 mg PO DAILY #60 tablet 05/31/18 traMADol HCL [Ultram -] 50 mg PO Q6H PRN #20 tablet MDD 4 05/31/18 Insulin (Levemir) [Levemir Vial] 22 units SQ DAILY@2200 10/13/18 Insulin (Levemir) [Levemir Vial] 24 unit SQ DAILY@0700 10/13/18 Insulin Aspart [Novolog] 10 unit SQ TID 10/13/18 Aspirin Coated [Ecotrin -] 81 mg PO DAILY tablet.ec 01/30/19 Carvedilol [Coreg -] 12.5 mg PO BID #60 tablet 01/30/19 Valsartan [Diovan] 80 mg PO DAILY #0 tablet 01/30/19
--- NOTE | 2019-01-30 11:46 | PN ---
Progress Note, Physician History of Present Illness: Dyspnea with bilateral LE swelling improved. - Current Medication List Current Medications: Active Medications Allopurinol (Zyloprim -) 100 mg PO DAILY [facility] Last Admin: 01/30/19 09:43 Dose: 100 mg Aspirin (Ecotrin -) 81 mg PO DAILY [facility] Last Admin: 01/30/19 09:42 Dose: 81 mg Atorvastatin Calcium (Lipitor -) 10 mg PO HS [facility] Last Admin: 01/29/19 22:29 Dose: 10 mg Carvedilol (Coreg -) 12.5 mg PO BID [facility] Last Admin: 01/30/19 09:42 Dose: 12.5 mg Furosemide (Lasix -) 40 mg PO DAILY [facility] Last Admin: 01/30/19 09:42 Dose: 40 mg Heparin Sodium (Porcine) (Heparin -) 5,000 unit SQ BID [facility] Last Admin: 01/30/19 09:42 Dose: 5,000 unit Insulin Aspart (Novolog Vial) 10 units SQ TIDAC [facility] Last Admin: 01/30/19 06:52 Dose: 10 unit Insulin Detemir (Levemir Vial) 22 units SQ DAILY@2200 [facility] Last Admin: 01/29/19 22:29 Dose: 22 units Insulin Detemir (Levemir Vial) 24 units SQ DAILY@0700 [facility] Last Admin: 01/30/19 06:52 Dose: 24 unit Pantoprazole Sodium (Protonix -) 20 mg PO DAILY [facility] Last Admin: 01/30/19 09:42 Dose: 20 mg Sevelamer Carbonate (Renvela -) 800 mg PO TIDCM [facility] Last Admin: 01/30/19 09:42 Dose: 800 mg Spironolactone (Aldactone -) 25 mg PO DAILY [facility] Last Admin: 01/30/19 09:42 Dose: 25 mg Tramadol HCl (Ultram -) 50 mg PO Q6H PRN PRN Reason: PAIN LEVEL 6-10 Last Admin: 01/29/19 22:30 Dose: 50 mg Valsartan (Diovan -) 80 mg PO DAILY [facility] Last Admin: 01/30/19 09:42 Dose: 80 mg - Objective Vital Signs: Vital Signs Temperature 97.9 F 01/30/19 10:00 Pulse Rate 72 01/30/19 10:00 Respiratory Rate 20 01/30/19 10:00 Blood Pressure 135/65 01/30/19 10:00 O2 Sat by Pulse Oximetry (%) 97 01/29/19 21:00 Constitutional: Yes: No Distress, Calm Neck: Yes: Supple Cardiovascular: Yes: Regular Rate and Rhythm Respiratory: Yes: Regular, Diminished, On Nasal O2 Gastrointestinal: Yes: Normal Bowel Sounds, Soft, Abdomen, Obese Edema: No Labs: CBC, BMP 01/29/19 08:56 01/29/19 08:56 Problem List - Problems (1) Biventricular ICD (implantable cardioverter-defibrillator) in place Code(s): Z95.810 - PRESENCE OF AUTOMATIC (IMPLANTABLE) CARDIAC DEFIBRILLATOR (2) CAD (coronary artery disease) Code(s): I25.10 - ATHSCL HEART DISEASE OF [place] CORONARY ARTERY W/O ANG PCTRS Qualifiers: Coronary Disease-Associated Artery/Lesion type: [place] artery [place] vs. transplanted heart: [place] heart Associated angina: without angina Qualified Code(s): I25.10 - Atherosclerotic heart disease of [place] coronary artery without angina pectoris (3) CHF (congestive heart failure) Code(s): I50.9 - HEART FAILURE, UNSPECIFIED Qualifiers: Heart failure type: combined systolic and diastolic Heart failure chronicity: acute on chronic Qualified Code(s): I50.43 - Acute on chronic combined systolic (congestive) and diastolic (congestive) heart failure (4) HTN (hypertension) Code(s): I10 - ESSENTIAL (PRIMARY) HYPERTENSION Qualifiers: Hypertension type: essential hypertension Qualified Code(s): I10 - Essential (primary) hypertension (5) History of percutaneous coronary intervention Code(s): Z98.89 - OTHER SPECIFIED POSTPROCEDURAL STATES * DO NOT USE * (6) Hypercholesterolemia Code(s): E78.0 - PURE HYPERCHOLESTEROLEMIA * DO NOT USE * (7) IDDM (insulin dependent diabetes mellitus) Code(s): E11.9 - TYPE 2 DIABETES MELLITUS WITHOUT COMPLICATIONS; Z79.4 - LONG-TERM (CURRENT) USE OF INSULIN Assessment/Plan March 2018 Echo: Mild-mod decreased LVEF 40-45%, pacemaker lead, mild MR, TR, pulm HTN 1. Acute on chronic LV diastolic/systolic failure and pulmonary HTN resolving 2. CAD s/p PCI/stent, angina pectoris 3. History of syncope s/p PEDIATRIC DENTIST-D 4. HTN/HCVD 5. Insulin-dependent type 2 diabetes mellitus 6. Hypercholesterolemia 7. CKD 8. Anemia PLAN: 1. Continue Lasix 40 qd with monitor renal function and electrolytes 2. Continue Carvedilol 12.5 bid, Norvasc 5 qd, Valsartan 40 qd, Lipitor 10 qhs, ASA 81 qd and Spironolactone 25 qd 3. DVT and GI prophylaxis 4. OOB to chair and ambulate as tolerated 5. D/c planning
[2019-01-30] MEDS: ATORVASTATIN CA 10 MG TABLET (FP) PO SCH (22:27)
[2019-01-30] MEDS: traMADol HCL 50 MG TABLET PO PRN (22:30)
[2019-01-31] MEDS: INSULIN (NOVOLOG) ASPART 100 UNITS/ML 10ML VIAL SQ SCH ×3 (06:17→16:55)
[2019-01-31] MEDS: INSULIN (LEVEMIR) 100 UNITS/ML UNITS SQ SCH ×2 (06:18→22:42)
[2019-01-31] MEDS: SEVELAMER CARBONATE 800 MG TAB (FP) PO SCH ×3 (08:41→18:41)
[2019-01-31] MEDS: ALLOPURINOL 100 MG TABLET (FP) PO SCH (09:05)
[2019-01-31] MEDS: FUROSEMIDE 40 MG TABLET (FP) PO SCH (09:05)
[2019-01-31] MEDS: SPIRONOLACTONE 25 MG TABLET (FP) PO SCH (09:05)
[2019-01-31] MEDS: CARVEDILOL 12.5 MG TABLET (FP) PO SCH ×2 (09:05→22:41)
[2019-01-31] MEDS: VALSARTAN 40 MG TABLET (FP) PO SCH (09:06)
[2019-01-31] MEDS: PANTOPRAZOLE 20 MG TABLET (FP) PO SCH (09:06)
[2019-01-31] MEDS: ASPIRIN COATED 81 MG TABLET.EC PO SCH (09:07)
[2019-01-31] MEDS: HEPARIN NA (PORCINE) 5,000 UNITS/ML 1ML VIAL SQ SCH ×2 (09:10→22:41)
--- NOTE | 2019-01-31 12:06 | PN ---
Progress Note (short form) - Note Progress Note: no complaints feels well will be going home today Vital Signs - 24 hr 01/30/19 01/30/19 01/30/19 14:30 18:00 20:23 Temperature 98.4 F 97.9 F Pulse Rate 72 76 Respiratory 20 20 20 Rate Blood Pressure 150/84 140/73 O2 Sat by Pulse 96 Oximetry (%) 01/30/19 01/31/19 22:00 05:37 Temperature 98.4 F 98.8 F Pulse Rate 78 74 Respiratory 20 20 Rate Blood Pressure 164/67 133/59 L O2 Sat by Pulse Oximetry (%) Current Medications Generic Name Dose Route Start Last Admin Trade Name Freq PRN Reason Stop Dose Admin Allopurinol 100 mg 01/28/19 10:00 01/31/19 09:05 Zyloprim - PO 100 mg DAILY [facility] Administration Aspirin 81 mg 01/29/19 10:00 01/31/19 09:07 Ecotrin - PO 81 mg DAILY [facility] Administration Atorvastatin Calcium 10 mg 01/28/19 22:00 01/30/19 22:27 Lipitor - PO 10 mg HS [facility] Administration Carvedilol 12.5 mg 01/28/19 16:15 01/31/19 09:05 Coreg - PO 12.5 mg BID [facility] Administration Furosemide 40 mg 01/29/19 10:00 01/31/19 09:05 Lasix - PO 40 mg DAILY [facility] Administration Heparin Sodium (Porcine) 5,000 unit 01/27/19 22:00 01/31/19 09:10 Heparin - SQ 5,000 unit BID [facility] Administration Insulin Aspart 10 units 01/28/19 07:00 01/31/19 11:20 Novolog Vial SQ Not Given TIDAC [facility] Insulin Detemir 22 units 01/28/19 22:00 01/30/19 22:26 Levemir Vial SQ 22 units DAILY@2200 [facility] Administration Insulin Detemir 24 units 01/28/19 07:00 01/31/19 06:18 Levemir Vial SQ 24 unit DAILY@0700 [facility] Administration Pantoprazole Sodium 20 mg 01/28/19 10:00 01/31/19 09:06 Protonix - PO 20 mg DAILY [facility] Administration Sevelamer Carbonate 800 mg 01/28/19 08:00 01/31/19 11:41 Renvela - PO 800 mg TIDCM [facility] Administration Spironolactone 25 mg 01/28/19 10:00 01/31/19 09:05 Aldactone - PO 25 mg DAILY [facility] Administration Valsartan 80 mg 01/28/19 16:15 01/31/19 09:06 Diovan - PO 80 mg DAILY [facility] Administration Laboratory Results - last 24 hr 01/30/19 01/30/19 01/31/19 16:43 22:24 06:16 POC Glucometer 190 199 146 01/31/19 11:17 POC Glucometer 63 Physical Examination Constitutional: Yes: No Distress,Comfortable. Obese Eyes: Yes: WNL, Conjunctiva Clear HENT: Yes: WNL Neck: Yes: Supple, Trachea Midline Cardiovascular: Yes: Regular Rate and Rhythm Respiratory: Yes: CTA Bilaterally Gastrointestinal: Yes: Normal Bowel Sounds, Soft Edema: trace. chronic skin changes . Neurological: Yes: alert Psychiatric: Yes: awake/ calm knees -- no redness/mild swelling Assessment/Plan Discussed continue present care monitor bgm orto consult noted follow up in office in 2 weeks avoid nsaids d/c planning pt wants to go home Problem List - Problems (1) Venous insufficiency of both lower extremities Code(s): I87.2 - VENOUS INSUFFICIENCY (CHRONIC) (PERIPHERAL) (2) Acute on chronic renal insufficiency Code(s): N28.9 - DISORDER OF KIDNEY AND URETER, UNSPECIFIED; N18.9 - CHRONIC KIDNEY DISEASE, UNSPECIFIED (3) Acute right-sided CHF (congestive heart failure) Code(s): I50.9 - HEART FAILURE, UNSPECIFIED (4) Anemia Code(s): D64.9 - ANEMIA, UNSPECIFIED Qualifiers: Anemia type: due to chronic kidney disease (5) Arthritis Code(s): M19.90 - UNSPECIFIED OSTEOARTHRITIS, UNSPECIFIED SITE
[2019-01-31] MEDS ORDERED: INSULIN (NOVOLOG) ASPART 100 UNITS/ML 10ML VIAL ONE (22:20)
[2019-01-31] MEDS: ATORVASTATIN CA 10 MG TABLET (FP) PO SCH (22:42)
[2019-02-01] MEDS: INSULIN (LEVEMIR) 100 UNITS/ML UNITS SQ SCH (06:06)
[2019-02-01] MEDS: INSULIN (NOVOLOG) ASPART 100 UNITS/ML 10ML VIAL SQ SCH ×2 (06:08→11:27)
[2019-02-01] MEDS: SEVELAMER CARBONATE 800 MG TAB (FP) PO SCH ×2 (07:41→11:27)
[2019-02-01 07:47] VITALS: BP 142/64; PULSE 78; TEMP 97.5
[2019-02-01] MEDS ORDERED: PT OWN MED DRAWER 7, Y5N ONE (09:04)
[2019-02-01] MEDS: VALSARTAN 40 MG TABLET (FP) PO SCH (09:05)
[2019-02-01] MEDS: ALLOPURINOL 100 MG TABLET (FP) PO SCH (09:06)
[2019-02-01] MEDS: SPIRONOLACTONE 25 MG TABLET (FP) PO SCH (09:06)
[2019-02-01] MEDS: CARVEDILOL 12.5 MG TABLET (FP) PO SCH (09:06)
[2019-02-01] MEDS: ASPIRIN COATED 81 MG TABLET.EC PO SCH (09:06)
[2019-02-01] MEDS: PANTOPRAZOLE 20 MG TABLET (FP) PO SCH (09:06)
[2019-02-01] MEDS: HEPARIN NA (PORCINE) 5,000 UNITS/ML 1ML VIAL SQ SCH (09:06)
[2019-02-01] MEDS: FUROSEMIDE 40 MG TABLET (FP) PO SCH (09:06)
--- NOTE | 2019-02-01 12:12 | PN ---
Progress Note (short form) - Note Progress Note: no complaints feels well will be going home today could not go yesterday due to problems with her [employer] Physical Examination Constitutional: Yes: No Distress,Comfortable. Obese Eyes: Yes: WNL, Conjunctiva Clear HENT: Yes: WNL Neck: Yes: Supple, Trachea Midline Cardiovascular: Yes: Regular Rate and Rhythm Respiratory: Yes: CTA Bilaterally Gastrointestinal: Yes: Normal Bowel Sounds, Soft Edema: trace. chronic skin changes . Neurological: Yes: alert Psychiatric: Yes: awake/ calm knees -- no redness/mild swelling Assessment/Plan Discussed continue present care monitor bgm orto consult noted follow up in office in 2 weeks avoid nsaids d/c planning pt wants to go home Problem List - Problems (1) Venous insufficiency of both lower extremities Code(s): I87.2 - VENOUS INSUFFICIENCY (CHRONIC) (PERIPHERAL) (2) Acute on chronic renal insufficiency Code(s): N28.9 - DISORDER OF KIDNEY AND URETER, UNSPECIFIED; N18.9 - CHRONIC KIDNEY DISEASE, UNSPECIFIED (3) Acute right-sided CHF (congestive heart failure) Code(s): I50.9 - HEART FAILURE, UNSPECIFIED (4) Anemia Code(s): D64.9 - ANEMIA, UNSPECIFIED Qualifiers: Anemia type: due to chronic kidney disease (5) Arthritis Code(s): M19.90 - UNSPECIFIED OSTEOARTHRITIS, UNSPECIFIED SITE
== END 2019-02-01 11:45 | disposition home or self-care (01) | DRG 291 ==
LOC: JER 15:46 → JERBED 19:16 → OBSVTOIN 19:59 → JERBED 19:59 → J7W 01-28 02:35
PROVIDERS: ADMIT Internal Medicine; ATTEND Internal Medicine
DX: I13.0 Hypertensive heart and chronic kidney disease with heart failure and stage 1 through stage 4 chronic kidney disease, or unspecified chronic kidney disease (principal); G93.41 Metabolic encephalopathy; I50.43 Acute on chronic combined systolic (congestive) and diastolic (congestive) heart failure; Z68.41 Body mass index [BMI] 40.0-44.9, adult; E11.22 Type 2 diabetes mellitus with diabetic chronic kidney disease; N18.9 Chronic kidney disease, unspecified; I25.10 Atherosclerotic heart disease of native coronary artery without angina pectoris; I87.2 Venous insufficiency (chronic) (peripheral); Z79.4 Long term (current) use of insulin; E66.9 Obesity, unspecified; F41.9 Anxiety disorder, unspecified; I27.20 Pulmonary hypertension, unspecified; M25.562 Pain in left knee; M25.561 Pain in right knee; Z98.61 Coronary angioplasty status; F03.90 Unspecified dementia, unspecified severity, without behavioral disturbance, psychotic disturbance, mood disturbance, and anxiety; D63.1 Anemia in chronic kidney disease; Z95.810 Presence of automatic (implantable) cardiac defibrillator; E78.00 Pure hypercholesterolemia, unspecified; M13.862 Other specified arthritis, left knee; M13.861 Other specified arthritis, right knee
CPT/HCPCS: 36415; 71045-TC-FY; 71250-TC; 73560-TC-LT-FY; 73560-TC-RT-FY; 80048; 80053; 80061; 82962; 83036; 83721; 83735; 83880; 84100; 84443; 85025; 85027; 87804; 93005; 93010; 93970-TC; 97116-GP; 97162-GP; 99283-25; G0378; J1644

== ENCOUNTER 2019-03-14 11:00 | Inpatient (IN) | payer OTHER ==
--- NOTE | 2019-03-14 11:53 | PDOC ---
History of Present Illness - General Chief Complaint: Shortness of Breath Stated Complaint: RESPIRATORY Time Seen by Provider: 03/14/19 11:09 History Source: Patient, Care Provider, Spot Worker Used, Old Records Exam Limitations: Language Barrier - History of Present Illness Initial Comments: HPI: 73 y/o female presenting to [facility] ER complaining of three days of shortness of breath, fatigue, and bilateral lower extremity swelling. Endorses nonproductive cough and orthopnea. Legs are chronically swollen but appear significantly worse. Endorses chest pain to the center of her chest that runs from the bottom to the top, which is made worse by coughing. Denies recent trauma. Home health aid at bedsides is unable to provide much medical history. Does not believe the pt has had a recent change in medications. Last Echo in [facility] dated 14 Mar 2018 revealed EF 40-45% with septal wall motion abnormalities. Possible pulmonary hypertension but images were of poor quality. Social Hx: - Pt is Ivorian Creole speaking. - Lives at home with family. Medical Hx: CHF, CKD, HTN, HLD, IDDM, CAD (s/p pacemaker placement), chronic venous insufficiency Review of Systems: In addition to that documented in the HPI above, the additional ROS was obtained : Constitutional: Denies fevers or chills Head: Denies vision changes ENMT: Denies sore throat CV: Per HPI Resp: Per HPI GI: Denies vomiting or diarrhea : Denies painful urination MSK: Denies recent trauma Skin: Denies new rashes Neuro: Denies new numbness or tingling or weakness Endocrine: Denies polyuria Heme: Denies bleeding or bruising Past History - Past Medical History Allergies/Adverse Reactions: Allergies Allergy/AdvReac Type Severity Reaction Status Date / Time No Known Allergies Allergy Verified 01/27/19 17:35 Home Medications: Ambulatory Orders Allopurinol [Zyloprim -] 100 mg PO DAILY 02/24/16 Omeprazole 20 mg PO DAILY 10/02/16 Cholecalciferol (Vitamin D3) [Vitamin D3] 1,000 unit PO DAILY 05/24/18 Furosemide [Lasix -] 40 mg PO DAILY 05/24/18 Pravastatin Sodium 20 mg PO HS 05/24/18 Insulin (Levemir) [Levemir Vial] 22 units SQ DAILY@2200 10/13/18 Insulin (Levemir) [Levemir Vial] 24 unit SQ DAILY@0700 10/13/18 Insulin Aspart [Novolog] 10 unit SQ TID 10/13/18 Aspirin Coated [Ecotrin -] 81 mg PO DAILY tablet.ec 01/30/19 Carvedilol [Coreg -] 12.5 mg PO BID #60 tablet 01/30/19 Amlodipine Besylate 5 mg PO DAILY 03/14/19 Clopidogrel Bisulfate [Clopidogrel] 75 mg PO DAILY 03/14/19 Gabapentin 300 mg PO DAILY 03/14/19 Insulin (Novolog) [Novolog] 10 units SQ AC 03/14/19 Anemia: Yes (ISH) Asthma: No Cancer: No Cardiac Disorders: Yes (HCVD, chest pain syndrome) CVA: No COPD: No CHF: Yes Dementia: No Diabetes: Yes (TYPE II) GI Disorders: No Disorders: Yes (Renal Insuffiency) HTN: Yes Hypercholesterolemia: Yes Liver Disease: No Psychiatric Problems: Yes (anxiety) Seizures: No Thyroid Disease: No - Surgical History Abdominal Surgery: No Appendectomy: No Cardiac Surgery: Yes (STENTS/PPM 2007) Cholecystectomy: No Lung Surgery: No Neurologic Surgery: No Orthopedic Surgery: No - Reproductive History Cervical CA: No Dysfunctional Uterine Bleeding: No Ectopic : No Endometrial CA: No Polycystic Ovaries: No Therapeutic (s) & number: No Tubal Ligation: No - Immunization History Td Vaccination: Yes TDAP Vaccination: Yes Immunization Up to Date: Yes - Suicide/Smoking/Psychosocial Hx Smoking Status: No Smoking History: Unknown if ever smoked Have you smoked in the past 12 months: No Number of Cigarettes Smoked Daily: 0 Hx Alcohol Use: No Drug/Substance Use Hx: No Substance Use Type: None Hx Substance Use Treatment: No Review of Systems - Review of Systems Able to Perform ROS?: Yes *Physical Exam - Vital Signs Last Vital Signs Temp Pulse Resp BP Pulse Ox 98.8 F 100 H 24 H 146/83 97 03/14/19 11:21 03/14/19 11:21 03/14/19 11:21 03/14/19 11:21 03/14/19 11:21 - Physical Exam Comments: Constitutional: Well-nourished adult female in no acute distress or obvious discomfort. Obese body habitus. Found semi-fowlers on hospital bed. Alert and oriented x4. Answered all questions appropriately and completely. Speech was non -labored, non-pressured. Head: Normocephalic. No obvious external signs of trauma. Eyes: Sclerae white. Conjunctiva moist and not injected. Ears: Hearing grossly intact. Nose: No nasal discharge. Neck: Supple, trachea is midline. Cardiovascular / Chest: Regular rate and regular rhythm. No murmur, rubs, clicks, or gallops. Peripheral pulses: radial pulses full. Respiratory: Breathing mildly tachypneic. Able to speak in multi-word responses without pausing for breath. Equal chest rise and fall. Decreased breath sounds in lower hemphill bilaterally. No stridor, no wheezing, no rhonchi. Gastrointestinal: abdomen is soft, non-tender, non-distended. Neuro: Alert and oriented. Moving all four extremities spontaneously. Skin: Warm, dry, and intact. Psych: Affect: appropriate. Mood: normal. ED Treatment Course - LABORATORY CBC & Chemistry Diagram: 03/14/19 11:55 03/14/19 18:00 - RADIOLOGY Radiology Studies Ordered: Category Date Time Status CHEST X-RAY PORTABLE* [RAD] Stat Radiology 03/14/19 11:50 Ordered Medical Decision Making - Medical Decision Making *Reviewed vital signs, nursing notes, and prior visit documentation (if available). 73 y/o female Creole speaking female. 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 Presenting with three days of SOB, fatigue, and bilateral lower extremity edema. Afebrile. Vitals unremarkable for hypotension or tachycardia. Physical exam as described above. Suspect likely CHF exacerbation. Low suspicion for pneumonia versus ACS. Ordered Lasix IVP. EKG revealed a paced atrial and ventricular rhythm. No ischemic changes. Unchanged when compared to previous EKG dated 27 January 2019. CXR (per ED wet read) unremarkable for blunting of right costophrenic angle. Unable to evaluate left angle given overlying pacemaker. Will obtain chest CT to further evaluate for signs of CHF versus pneumonia. ABG revealed mild acute respiratory acidosis with partial compensation. Unrevealing. CMP revealed hyperkalemia. Already receiving lasix. Ordered Insulin and D50. Calcium was not administered as no EKG changes were noted. Withield inhaled beta agonists given decreased EF and wall motion abnormalities on last Echo. CBC revealed mild leukocytes. No anemia. Troponin not elevated. Elevated BNP but not significantly above previous baseline documented in [facility]. CT of chest revealed consolidation/atelectasis in right middle lobe with air bronchogram. Unchanged from previous CT dated 28 January 2019. Low suspicion for pneumonia without fever or other systemic signs. Pt reassessed and remains somewhat somnolent. No arrhythmia noted on telemetry monitoring. Will admit the pt for acute CHF exacerbation and hyperkalemia. Repeat BMP revealed improved hyperkalemia. In person consultation with AL Cummings. Verbally appraised of the pts HPI, ED course, and current plan of management. Will admit the pt to telemetry. *DC/Admit/Observation/Transfer Diagnosis at time of Disposition: Shortness of breath, Localized swelling of both lower legs Acute CHF Qualifiers: Heart failure type: unspecified Qualified Code(s): I50.9 - Heart failure, unspecified - Discharge Dispostion Condition at time of disposition: Stable Decision to Admit order: Yes - Referrals - Patient Instructions - Post Discharge Activity
[2019-03-14] MEDS ORDERED: FUROSEMIDE 40 MG/4 ML INJECTABLE VIAL IVPUSH ONE (11:54)
[2019-03-14] MEDS ORDERED: FUROSEMIDE 40 MG/4 ML INJECTABLE VIAL ONE (12:04)
[2019-03-14 12:25] LABS: BASO % 0.4 % (0-2.0); EOS % 3.3 % (0-4.5); HEMATOCRIT 33.6 % (32.4-45.2); HEMOGLOBIN 10.2 GM/dL (10.7-15.3); LYMPH % 11.7 % (8-40); MCH 20.8 pg (25.7-33.7); MCHC 30.4 g/dl (32.0-36.0); MEAN CELL VOLUME 68.6 fl (80-96); MEAN PLT VOLUME 11.2 fl (7.5-11.1); MONO % 7.5 % (3.8-10.2); NEUT % 77.1 % (42.8-82.8); PLATELET COUNT 216 K/MM3 (134-434); RDW 16.3 % (11.6-15.6); WHITE BLOOD COUNT 10.3 K/mm3 (4.0-10.0)
[2019-03-14 13:05] LABS: ALBUMIN 3.3 g/dl (3.4-5.0); ALK PHOS 193 U/L (45-117); ANION GAP 5 MMOL/L (8-16); BILIRUBIN,TOTAL 0.3 mg/dL (0.2-1); BLOOD UREA NITROGEN 58 mg/dL (7-18); CALCIUM 8.8 mg/dL (8.5-10.1); CHLORIDE 109 mmol/L (98-107); CO2 28 mmol/L (21-32); CREATININE 2.4 mg/dL (0.55-1.3); GLUCOSE,RANDOM 187 mg/dL (74-106); N-TERMINAL BNP 1376.2 pg/ml (5-125); POTASSIUM 5.8 mmol/L (3.5-5.1); SGOT/AST 19 U/L (15-37); SGPT/ALT 13 U/L (13-61); SODIUM 142 mmol/L (136-145); TOT PROT 7.6 g/dl (6.4-8.2)
--- NOTE | 2019-03-14 13:46 | EKG ---
Test Reason : Blood Pressure : / mmHG Vent. Rate : 084 BPM Atrial Rate : 084 BPM P-R Int : 000 ms QRS Dur : 168 ms QT Int : 448 ms P-R-T Axes : 022 118 060 degrees QTc Int : 529 ms Suspect unspecified pacemaker failure Ventricular-paced rhythm ABNORMAL ECG WHEN COMPARED WITH ECG OF 27-JAN-2019 17:02, VENT. RATE HAS INCREASED BY 11 BPM Confirmed by Sanchez Stockton MD ([id number]) on 03/14/2019 1:46:16 PM Referred By: Confirmed By:Sanchez Stockton MD
[2019-03-14] MEDS ORDERED: DEXTROSE 50%-WATER - 25 GM/50 ML VIAL IVPUSH ONE (13:49)
[2019-03-14] MEDS ORDERED: INSULIN REGULAR HUMAN 100 UNITS/ML *VIAL SQ ONE (13:49)
[2019-03-14] MEDS ORDERED: INSULIN REGULAR HUMAN 100 UNITS/ML *VIAL ONE (13:56)
[2019-03-14] MEDS ORDERED: DEXTROSE 50%-WATER 25 GM/50 ML DISP.SYRIN ONE (14:18)
[2019-03-14 14:25] LABS: CARBOXYHEMOGLOBIN 0.7 % (0-2)
[2019-03-14 14:28] LABS: ARTERIAL BLOOD GAS pH 7.33 (7.35-7.45)
[2019-03-14 14:29] LABS: ANISOCYTOSIS 2+; MACROCYTOSIS 0; OVALOCYTE 1+; PLATELET ESTIMATE NORMAL
[2019-03-14 14:29] LABS: ALLENS TEST POSITIVE; ARTERIAL BLD GAS O2 SATURATION 98.5 % (95-98); ARTERIAL BLOOD GAS BASE EXCESS 0.8 meq/l (-2-2); ARTERIAL BLOOD GAS PCO2 51.3 mmHg (35-45); ARTERIAL BLOOD GAS PO2 136 mmHg (80-105)
--- NOTE | 2019-03-14 15:18 | PDOC ---
Documentation entered by Shilpa Garces SCRIBE, acting as scribe for Azael Addison MD. Azael Addison MD: This documentation has been prepared by the Dez benton Renju, SCRIBE, under my direction and personally reviewed by me in its entirety. I confirm that the documentation accurately reflects all work, treatment, procedures, and medical decision making performed by me. Attending Attestation - Resident Resident Name: Aryan Wise - ED Attending Attestation I have performed the following: I have examined & evaluated the patient, The case was reviewed & discussed with the resident, I agree w/resident's findings & plan, Exceptions are as noted - HPI HPI: 03/14/19 14:57 73F h/o CHF, CKD, HLD, HTN, DM, CAD, stents and PPM 2007, and chronic venous insufficiency who presents to the ED for evaluation of a 3 day history of SOB. Pt endorses worsening dyspnea and lower extremity edema bilaterally. Denies F/ C. Denies CP. Endorses orthopnea. - Physicial Exam PE: 03/14/19 15:17 "GENERAL: Awake, alert, and fully oriented, in no acute distress. HEAD: No signs of trauma EYES: PERRLA, EOMI, sclera anicteric, conjunctiva clear ENT: Auricles normal inspection, hearing grossly normal, nares patent, oropharynx clear without exudates. Moist mucosa NECK: Nontender, no stepoffs, Normal ROM, supple, no lymphadenopathy, JVD, or masses LUNGS: + Breath sounds diminished bilaterally. HEART: Regular rate and rhythm, normal S1 and S2, no murmurs, rubs or gallops ABDOMEN: Soft, nontender, normoactive bowel sounds. No guarding, no rebound. No masses EXTREMITIES: +2 PE BLE, No clubbing or cyanosis. No cords, erythema, or tenderness NEUROLOGICAL: Cranial nerves II through XII intact. 5/5 strength and sensation in all extremities, Normal speech, normal gait, normal cerebellar function SKIN: Warm, Dry, normal turgor, no rashes or lesions noted. - Medical Decision Making 03/14/19 15:17 73 F with SOB. Suspect CHF exacerbation given significant edema of BLE. - Labs, trop, BNP - CXR - IV diuresis
[2019-03-14 15:23] LABS: URINE APPEARANCE CLEAR; URINE BILIRUBIN NEGATIVE (NEGATIVE); URINE COLOR YELLOW; URINE GLUCOSE (UA) TRACE (NEGATIVE); URINE KETONE NEGATIVE (NEGATIVE); URINE LEUK ESTERASE NEGATIVE (NEGATIVE); URINE NITRITE NEGATIVE (NEGATIVE); URINE PROTEIN NEGATIVE (NEGATIVE); URINE UROBILINOGEN 0.2 mg/dL (0.2-1.0)
[2019-03-14 18:40] LABS: ANION GAP 6 MMOL/L (8-16); BLOOD UREA NITROGEN 56 mg/dL (7-18); CHLORIDE 111 mmol/L (98-107); CO2 28 mmol/L (21-32); CREATININE 2.2 mg/dL (0.55-1.3); GLUCOSE,RANDOM 85 mg/dL (74-106); POTASSIUM 4.3 mmol/L (3.5-5.1); SODIUM 145 mmol/L (136-145)
[2019-03-14] MEDS ORDERED: INSULIN (NOVOLOG) ASPART 100 UNITS/ML 10ML VIAL SQ SCH (19:45)
--- NOTE | 2019-03-14 20:01 | HP ---
Admitting History and Physical - Primary Care Physician PCP: Iesha Combs - Admission Chief Complaint: SOB History of Present Illness: Limited HPI due to pt's mental status Three failed Attempts to call Brother Narendra Castellano [phone] 72 y/o woman PMH: HTN, HLD, CAD (s/p stents), PPM (2007), CHF, IDDM, Anemia, CKD , Severe Obesity; who presents to the ED with SOB and worsening LE edema x 3days. Associated symptoms include somnolence and dry cough. Pt has no recent travel or sick contacts. In ED: Vitals: T 98, BP 138/65, RR 20, HR 84, O2 sat 98% on 2L Labs: WBC 10.3, H/H 10.2/33.6, BUN/Cr 58/2.4, trop normal. BNP 1376 (lasix 40mg IVP administered) AB.33/51.3/136/26.7/98.[address] of chest revealed consolidation/atelectasis in right middle lobe with air bronchogram. Unchanged from previous CT dated [address] ordered for altered mental status. Decision made to admit for continued management of volume overload and altered mentation. 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) Pulmonary: Yes: COPD Gastrointestinal: Yes: GERD, Other (anemia, IRON DEF) Renal/: Yes: Renal Inusuff Reproductive: Yes: Postmenopausal ...: No Heme/Onc: Yes: Anemia Musculoskeletal: Yes: Osteoarthritis Rheumatology: Yes: Gout Endocrine: Yes: Diabetes Mellitus - Past Surgical History Past Surgical History: Yes: AICD, Stent - Smoking History Smoking history: Unknown if ever smoked Have you smoked in the past 12 months: No Aproximately how many cigarettes per day: 0 - Alcohol/Substance Use Hx Alcohol Use: No History of Substance Use: reports: None - Social History Usual Living Arrangement: Yes: Other (with family) 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) History of Recent Travel: No Home Medications - Allergies Allergies/Adverse Reactions: Allergies Allergy/AdvReac Type Severity Reaction Status Date / Time No Known Allergies Allergy Verified 01/27/19 17:35 - Home Medications Home Medications: Ambulatory Orders Allopurinol [Zyloprim -] 100 mg PO DAILY 02/24/16 Omeprazole 20 mg PO DAILY 10/02/16 Cholecalciferol (Vitamin D3) [Vitamin D3] 1,000 unit PO DAILY 05/24/18 Furosemide [Lasix -] 40 mg PO DAILY 05/24/18 Pravastatin Sodium 20 mg PO HS 05/24/18 Insulin (Levemir) [Levemir Vial] 22 units SQ DAILY@2200 10/13/18 Insulin (Levemir) [Levemir Vial] 24 unit SQ DAILY@0700 10/13/18 Insulin Aspart [Novolog] 10 unit SQ TID 10/13/18 Aspirin Coated [Ecotrin -] 81 mg PO DAILY tablet.ec 01/30/19 Carvedilol [Coreg -] 12.5 mg PO BID #60 tablet 01/30/19 Amlodipine Besylate 5 mg PO DAILY 03/14/19 Clopidogrel Bisulfate [Clopidogrel] 75 mg PO DAILY 03/14/19 Gabapentin 300 mg PO DAILY 03/14/19 Insulin (Novolog) [Novolog] 10 units SQ AC 03/14/19 Family Disease History - Family Disease History Family History: Unable to Obtain (due to mental status) Review of Systems Unable to obtain ROS, reason: pt altered Physical Examination Vital Signs: Vital Signs Temperature 98.0 F 03/14/19 17:20 Pulse Rate 84 03/14/19 17:20 Respiratory Rate 20 03/14/19 17:20 Blood Pressure 138/65 03/14/19 17:20 O2 Sat by Pulse Oximetry (%) 98 03/14/19 17:20 Constitutional: Yes: Well Nourished, No Distress, Calm, Obese Eyes: Yes: Other (mucoprurulent discharge b/l eyes, conjunctiva and sclera are erythematous) HENT: Yes: Atraumatic, Normocephalic, Other (edentulous, tongue midline) Neck: Yes: Supple Cardiovascular: Yes: Regular Rate and Rhythm, S1, S2 Respiratory: Yes: Regular, CTA Bilaterally, On Nasal O2 Gastrointestinal: Yes: Soft, Abdomen, Obese, Hypoactive Bowel Sounds ...Rectal Exam: Yes: Deferred Renal/: Yes: Incontinence (diaper in place) Musculoskeletal: Yes: Muscle Weakness, Other (pt moves b/l upper extremities.) Extremities: Yes: Erythema, Other (hyperpigmentation noted) Edema: Yes Edema: LLE: 3+, RLE: 3+ Peripheral Pulses: Left Radial: 2+, Right Radial: 2+, Left Doralis Pedis: 1+, Right Dorsalis Pedis: 1+ Integumentary: Yes: Venous Stasis Changes, Other (small ulcerations RLE) Neurological: Yes: Weakness, Other (minimally responsive) Labs: CBC, BMP 03/14/19 11:55 03/14/19 18:00 Imaging - Results Chest X-ray: Report Reviewed (CXR 03/14/2019 Chest: Shortness of breath. A single AP view of the chest is submitted. Since 01/27/2019 there is a weaker inspiration with chin artifact, prominent mediastinum and left-sided pacemaker. Evaluation of the left hemithorax is difficult due to the weak inspiration, chin artifact and pacemaker artifact. Correlation recommended. Reported By: Romie Morataya MD 03/14/19 [id number]) Cat Scan: Report Reviewed (CT chest 03/14/2019 Impression: Consolidation/ atelectasis is again seen in the right middle lobe with air bronchogram. Underlying pathology could not be excluded since there is no gross interval change since the prior exam. Correlate clinically for further evaluation. Gallstones without CT evidence of acute cholecystitis. Correlate. Reported By : Yolanda Cueva MD 03/14/19 [id number]) Problem List - Problems (1) Altered mental state Assessment/Plan: head CT ordered to evaluate for underlying pathological causes for altered mentation serial neuro exams aspiration precautions Code(s): R41.82 - ALTERED MENTAL STATUS, UNSPECIFIED (2) CHF (congestive heart failure) Assessment/Plan: Lasix 40mg BID IVP strict intake and output place dixon for monitoring of output coreg 12.5mg BID cardiology consult placed echo ordered 3L NC Code(s): I50.9 - HEART FAILURE, UNSPECIFIED Qualifiers: Heart failure type: combined systolic and diastolic Heart failure chronicity: acute on chronic Qualified Code(s): I50.43 - Acute on chronic combined systolic (congestive) and diastolic (congestive) heart failure (3) Conjunctivitis of both eyes Assessment/Plan: start polytrim q4hrs while awake and taper accordingly cleanse eye QID Code(s): H10.9 - UNSPECIFIED CONJUNCTIVITIS (4) Gait instability Assessment/Plan: fall precautions Code(s): R26.81 - UNSTEADINESS ON FEET (5) HTN (hypertension) Assessment/Plan: norvasc 5mg daily Code(s): I10 - ESSENTIAL (PRIMARY) HYPERTENSION Qualifiers: Hypertension type: essential hypertension Qualified Code(s): I10 - Essential (primary) hypertension (6) Hypercholesterolemia Assessment/Plan: lipitor 10mg qhs while inpt, pravachol is NF puree cardiac diet Code(s): E78.0 - PURE HYPERCHOLESTEROLEMIA * DO NOT USE * (7) IDDM (insulin dependent diabetes mellitus) Assessment/Plan: levemir 22u qhs and 24units qam Fingerstick ACHS insulin sliding scale hypoglycemia precautions neurontin 300mg daily for neuropathic pain Code(s): E11.9 - TYPE 2 DIABETES MELLITUS WITHOUT COMPLICATIONS; Z79.4 - LONG-TERM (CURRENT) USE OF INSULIN (8) Renal insufficiency Assessment/Plan: monitor serum Cr and trend electrolytes Code(s): N28.9 - DISORDER OF KIDNEY AND URETER, UNSPECIFIED (9) Venous insufficiency of both lower extremities Assessment/Plan: LE doppler studies ordered Code(s): I87.2 - VENOUS INSUFFICIENCY (CHRONIC) (PERIPHERAL) (10) Prophylactic measure Assessment/Plan: SC heparin TID PPI daily vitamin D daily allopurinol for h/o gout Code(s): Z29.9 - ENCOUNTER FOR PROPHYLACTIC MEASURES, UNSPECIFIED (11) CAD (coronary artery disease) Assessment/Plan: continue ASA and plavix Code(s): I25.10 - ATHSCL HEART DISEASE OF [place] CORONARY ARTERY W/O ANG PCTRS Qualifiers: Coronary Disease-Associated Artery/Lesion type: [place] artery [place] vs. transplanted heart: [place] heart Associated angina: without angina Qualified Code(s): I25.10 - Atherosclerotic heart disease of [place] coronary artery without angina pectoris Assessment/Plan DISPO: home when stable Code status: full code Visit type - Emergency Visit Emergency Visit: Yes Care time: The patient presented to the Emergency Department on the above date and was hospitalized for further evaluation of their emergent condition. - New Patient This patient is new to me today: Yes Date on this admission: 03/14/19 - Critical Care Critical Care patient: No
[2019-03-14] MEDS: INSULIN SLIDING SCALE (NOVOLOG) 1 VIAL SQ SCH (22:04)
--- NOTE | 2019-03-14 22:43 | CON.CARD ---
Consult - History of Present Illness History of Present Illness: 72 y/o woman PMH: HTN, HLD, CAD (s/p stents), PPM (2007), CHF, IDDM, Anemia, CKD , Severe Obesity; who presents to the ED with SOB and worsening LE edema x 3days. Associated symptoms include somnolence and dry cough. Pt has no recent travel or sick contacts. 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) Pulmonary: Yes: COPD Gastrointestinal: Yes: GERD, Other (anemia, IRON DEF) Renal/: Yes: Renal Inusuff ...: No Musculoskeletal: Yes: Osteoarthritis Rheumatology: Yes: Gout Endocrine: Yes: Diabetes Mellitus - Past Surgical History Past Surgical History: Yes: AICD, Stent - Alcohol/Substance Use Hx Alcohol Use: No History of Substance Use: reports: None - Smoking History Smoking history: Unknown if ever smoked Have you smoked in the past 12 months: No Aproximately how many cigarettes per day: 0 - Social History 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) History of Recent Travel: No Home Medications - Allergies Allergies/Adverse Reactions: Allergies Allergy/AdvReac Type Severity Reaction Status Date / Time No Known Allergies Allergy Verified 01/27/19 17:35 - Home Medications Home Medications: Ambulatory Orders Allopurinol [Zyloprim -] 100 mg PO DAILY 02/24/16 Omeprazole 20 mg PO DAILY 10/02/16 Cholecalciferol (Vitamin D3) [Vitamin D3] 1,000 unit PO DAILY 05/24/18 Furosemide [Lasix -] 40 mg PO DAILY 05/24/18 Pravastatin Sodium 20 mg PO HS 05/24/18 Insulin (Levemir) [Levemir Vial] 22 units SQ DAILY@2200 10/13/18 Insulin (Levemir) [Levemir Vial] 24 unit SQ DAILY@0700 10/13/18 Insulin Aspart [Novolog] 10 unit SQ TID 10/13/18 Aspirin Coated [Ecotrin -] 81 mg PO DAILY tablet.ec 01/30/19 Carvedilol [Coreg -] 12.5 mg PO BID #60 tablet 01/30/19 Amlodipine Besylate 5 mg PO DAILY 03/14/19 Clopidogrel Bisulfate [Clopidogrel] 75 mg PO DAILY 03/14/19 Gabapentin 300 mg PO DAILY 03/14/19 Insulin (Novolog) [Novolog] 10 units SQ AC 03/14/19 Vital Signs: Vital Signs Temperature 98.0 F 03/14/19 21:02 Pulse Rate 88 03/14/19 21:02 Respiratory Rate 20 03/14/19 21:02 Blood Pressure 162/67 03/14/19 21:02 O2 Sat by Pulse Oximetry (%) 99 03/14/19 21:02 - Other Data Labs, Other Data: CBC, BMP 03/14/19 11:55 03/14/19 18:00 Troponin, BNP 03/14/19 03/14/19 11:55 11:55 Troponin I < 0.02 B-Natriuretic Peptide 1376.2 H Troponin, BNP 03/14/19 03/14/19 11:55 11:55 Troponin I < 0.02 B-Natriuretic Peptide 1376.2 H
[2019-03-14] MEDS ORDERED: INSULIN (LEVEMIR) 100 UNITS/ML UNITS SQ ONE (23:00)
[2019-03-14] MEDS: POLYMYXIN B SULFATE/TMP 10 ML OPHTHALMIC SOLUTION OU SCH (23:09)
[2019-03-14] MEDS: INSULIN (LEVEMIR) 100 UNITS/ML UNITS SQ SCH (23:09)
[2019-03-14] MEDS: ATORVASTATIN CA 10 MG TABLET (FP) PO SCH (23:09)
[2019-03-14] MEDS: CARVEDILOL 6.25 MG TABLET (FP) PO SCH (23:10)
[2019-03-15] MEDS ORDERED: LORazepam 2 MG/ML SDV VIAL IVPUSH ONE (02:09)
[2019-03-15] MEDS ORDERED: LORazepam 2 MG/ML SDV VIAL ONE (02:14)
[2019-03-15 05:39] LABS: HEMATOCRIT 29.2 % (32.4-45.2); HEMOGLOBIN 9.2 GM/dL (10.7-15.3); MCH 21.4 pg (25.7-33.7); MCHC 31.4 g/dl (32.0-36.0); MEAN CELL VOLUME 68.1 fl (80-96); MEAN PLT VOLUME 10.4 fl (7.5-11.1); PLATELET COUNT 205 K/MM3 (134-434); RBC 4.28 M/mm3 (3.60-5.2); RDW 16.1 % (11.6-15.6); WHITE BLOOD COUNT 10.4 K/mm3 (4.0-10.0)
[2019-03-15 05:52] LABS: INR 1.13 (0.83-1.09); PROTHROMBIN TIME (PATIENT) 13.4 SEC (9.7-13.0)
[2019-03-15 05:54] LABS: ACTIVATED PTT 34.7 SECONDS (25.2-36.5)
[2019-03-15] MEDS ORDERED: FUROSEMIDE 40 MG/4 ML INJECTABLE VIAL ONE (06:34)
[2019-03-15] MEDS ORDERED: HEPARIN NA (PORCINE) 5,000 UNITS/ML 1ML VIAL ONE (06:34)
[2019-03-15 06:36] LABS: ALBUMIN 3.1 g/dl (3.4-5.0); ALK PHOS 140 U/L (45-117); ANION GAP 5 MMOL/L (8-16); BILIRUBIN,TOTAL 0.4 mg/dL (0.2-1); BLOOD UREA NITROGEN 53 mg/dL (7-18); CALCIUM 8.8 mg/dL (8.5-10.1); CHLORIDE 112 mmol/L (98-107); CO2 29 mmol/L (21-32); CREATININE 2.2 mg/dL (0.55-1.3); GLUCOSE,RANDOM 163 mg/dL (74-106); MAGNESIUM 2.2 mg/dL (1.8-2.4); N-TERMINAL BNP 1492.1 pg/ml (5-125); PHOSPHOROUS 4.1 mg/dL (2.5-4.9); POTASSIUM 4.1 mmol/L (3.5-5.1); SGOT/AST 12 U/L (15-37); SGPT/ALT 10 U/L (13-61); SODIUM 146 mmol/L (136-145)
[2019-03-15] MEDS: HEPARIN NA (PORCINE) 5,000 UNITS/ML 1ML VIAL SQ SCH ×3 (06:40→21:14)
[2019-03-15] MEDS: FUROSEMIDE 40 MG/4 ML INJECTABLE VIAL IVPUSH SCH ×2 (06:40→14:37)
[2019-03-15] MEDS: INSULIN (LEVEMIR) 100 UNITS/ML UNITS SQ SCH ×2 (07:30→21:15)
[2019-03-15] MEDS: INSULIN SLIDING SCALE (NOVOLOG) 1 VIAL SQ SCH ×4 (07:39→21:15)
[2019-03-15] MEDS ORDERED: ASPIRIN COATED 81 MG TABLET.EC PO SCH (10:00)
[2019-03-15] MEDS ORDERED: FUROSEMIDE 20 MG TABLET (FP) PO SCH (10:00)
--- NOTE | 2019-03-15 10:16 | PN ---
Progress Note (short form) - Note Progress Note: Altered mental status no SOB No distress Vital Signs - 24 hr 03/14/19 03/14/19 03/14/19 17:20 20:41 21:02 Temperature 98.0 F 98.0 F Pulse Rate [ 84 88 Apical] Respiratory 20 20 Rate Blood Pressure 138/65 162/67 [Left Arm] O2 Sat by Pulse 98 99 99 Oximetry (%) 03/14/19 03/15/19 03/15/19 23:10 00:00 06:14 Temperature 99.0 F 97.9 F Pulse Rate [ 92 H 82 Apical] Respiratory 20 20 Rate Blood Pressure 164/75 157/62 [Left Arm] O2 Sat by Pulse 98 98 94 L Oximetry (%) 03/15/19 07:20 Temperature Pulse Rate [ Apical] Respiratory 20 Rate Blood Pressure [Left Arm] O2 Sat by Pulse 94 L Oximetry (%) Current Medications Generic Name Dose Route Start Last Admin Trade Name Freq PRN Reason Stop Dose Admin Allopurinol 100 mg 03/15/19 10:00 03/15/19 14:00 Zyloprim - PO Not Given DAILY [facility] Amlodipine Besylate 5 mg 03/15/19 10:00 03/15/19 14:03 Norvasc - PO 5 mg DAILY MARTIN Administration Aspirin 81 mg 03/15/19 10:00 03/15/19 13:59 Ecotrin - PO Not Given DAILY [facility] Atorvastatin Calcium 10 mg 03/14/19 22:00 03/14/19 23:09 Lipitor - PO 10 mg HS MARTIN Administration Carvedilol 12.5 mg 03/14/19 22:00 03/15/19 13:58 Coreg - PO Not Given BID [facility] Cholecalciferol 1,000 unit 03/15/19 10:00 03/15/19 14:01 Vitamin D3 - PO Not Given DAILY [facility] Clopidogrel Bisulfate 75 mg 03/15/19 10:00 03/15/19 14:02 Plavix - PO Not Given DAILY [facility] Furosemide 40 mg 03/15/19 06:00 03/15/19 14:37 Lasix Injection - IVPUSH 40 mg BIDLASIX MARTIN Administration Gabapentin 300 mg 03/15/19 10:00 03/15/19 14:02 Neurontin - PO Not Given DAILY [facility] Heparin Sodium (Porcine) 5,000 unit 03/15/19 06:00 03/15/19 14:37 Heparin - SQ 5,000 unit TID [facility] Administration Insulin Aspart 1 vial 03/14/19 22:00 03/15/19 14:37 Novolog Vial Sliding Scale - SQ Not Given ACHS [facility] Protocol Insulin Detemir 22 units 03/14/19 22:00 03/14/19 23:09 Levemir Vial SQ 22 units DAILY@2200 [facility] Administration Insulin Detemir 24 units 03/15/19 07:00 03/15/19 07:30 Levemir Vial SQ 24 unit DAILY@0700 [facility] Administration Pantoprazole Sodium 40 mg 03/15/19 10:00 03/15/19 14:01 Protonix - PO Not Given DAILY [facility] Polymyxin/Trimethoprim Sulfate 1 drop 03/14/19 22:00 03/15/19 14:54 Polytrim Opthalmic Solution - OU 1 drop Q4HWA [facility] Administration Laboratory Results - last 24 hr 03/14/19 03/14/19 03/14/19 14:50 14:50 15:02 WBC RBC Hgb Hct MCV MCH MCHC RDW Plt Count MPV PT with INR INR PTT (Actin FS) Sodium Potassium Chloride Carbon Dioxide Anion Gap BUN Creatinine Creat Clearance w eGFR Est GFR (CKD-EPI)AfAm Est GFR (CKD-EPI)NonAf POC Glucometer Random Glucose Calcium Phosphorus Magnesium Total Bilirubin AST ALT Alkaline Phosphatase Creatine Kinase Creatine Kinase Index CK-MB (CK-2) Troponin I B-Natriuretic Peptide Total Protein Albumin TSH Urine Color Yellow Urine Appearance Clear Urine pH 5.0 Ur Specific Maddock 1.009 L Urine Protein Negative Urine Glucose (UA) Trace Urine Ketones Negative Urine Blood Negative Urine Nitrite Negative Urine Bilirubin Negative Urine Urobilinogen 0.2 Ur Leukocyte Esterase Negative Ur Random Creatinine 38.0 U Random Total Protein Ur Random Sodium 95 Ur Random Potassium 17.5 L Ur Random Chloride 105 L 03/14/19 03/14/19 03/14/19 15:02 18:00 21:31 WBC RBC Hgb Hct MCV MCH MCHC RDW Plt Count MPV PT with INR INR PTT (Actin FS) Sodium 145 Potassium 4.3 Chloride 111 H Carbon Dioxide 28 Anion Gap 6 L BUN 56 H Creatinine 2.2 H Creat Clearance w eGFR Est GFR (CKD-EPI)AfAm No Result Required. Est GFR (CKD-EPI)NonAf 21.38 POC Glucometer 117 Random Glucose 85 Calcium 9.0 Phosphorus Magnesium Total Bilirubin AST ALT Alkaline Phosphatase Creatine Kinase Creatine Kinase Index CK-MB (CK-2) Troponin I B-Natriuretic Peptide Total Protein Albumin TSH Urine Color Urine Appearance Urine pH Ur Specific Maddock Urine Protein Urine Glucose (UA) Urine Ketones Urine Blood Urine Nitrite Urine Bilirubin Urine Urobilinogen Ur Leukocyte Esterase Ur Random Creatinine U Random Total Protein 11.4 Ur Random Sodium 96 Ur Random Potassium Ur Random Chloride 03/15/19 03/15/19 03/15/19 05:20 05:20 05:20 WBC 10.4 H RBC 4.28 Hgb 9.2 L Hct 29.2 L MCV 68.1 L MCH 21.4 L MCHC 31.4 L RDW 16.1 H Plt Count 205 MPV 10.4 PT with INR 13.40 H INR 1.13 H PTT (Actin FS) 34.7 Sodium 146 H Potassium 4.1 Chloride 112 H Carbon Dioxide 29 Anion Gap 5 L BUN 53 H Creatinine 2.2 H Creat Clearance w eGFR 21.82 Est GFR (CKD-EPI)AfAm Est GFR (CKD-EPI)NonAf POC Glucometer Random Glucose 163 H Calcium 8.8 Phosphorus 4.1 Magnesium 2.2 Total Bilirubin 0.4 AST 12 L ALT 10 L Alkaline Phosphatase 140 H Creatine Kinase 200 H Creatine Kinase Index 0.5 CK-MB (CK-2) < 1.0 Troponin I < 0.02 B-Natriuretic Peptide 1492.1 H Total Protein 7.0 Albumin 3.1 L TSH 2.42 Urine Color Urine Appearance Urine pH Ur Specific Maddock Urine Protein Urine Glucose (UA) Urine Ketones Urine Blood Urine Nitrite Urine Bilirubin Urine Urobilinogen Ur Leukocyte Esterase Ur Random Creatinine U Random Total Protein Ur Random Sodium Ur Random Potassium Ur Random Chloride 03/15/19 03/15/19 07:35 14:14 WBC RBC Hgb Hct MCV MCH MCHC RDW Plt Count MPV PT with INR INR PTT (Actin FS) Sodium Potassium Chloride Carbon Dioxide Anion Gap BUN Creatinine Creat Clearance w eGFR Est GFR (CKD-EPI)AfAm Est GFR (CKD-EPI)NonAf POC Glucometer 147 142 Random Glucose Calcium Phosphorus Magnesium Total Bilirubin AST ALT Alkaline Phosphatase Creatine Kinase Creatine Kinase Index CK-MB (CK-2) Troponin I B-Natriuretic Peptide Total Protein Albumin TSH Urine Color Urine Appearance Urine pH Ur Specific Maddock Urine Protein Urine Glucose (UA) Urine Ketones Urine Blood Urine Nitrite Urine Bilirubin Urine Urobilinogen Ur Leukocyte Esterase Ur Random Creatinine U Random Total Protein Ur Random Sodium Ur Random Potassium Ur Random Chloride No pallor S1 S2 RRR Lungs decreased Abd- soft, obese, NT edema+ PLAN CT chest , Head ct noted Pulmonary eval for persistent opacity/consolidation seen on CT Chest Cardiology eval Check urine and blood cultures-- r/o septic source-- will start empiric antibiotics on Lasix Follow up of renal function continue meds swallow eval-- pt having a difficult time swallowing thin liquids Problem List - Problems (1) Acute CHF Code(s): I50.9 - HEART FAILURE, UNSPECIFIED Qualifiers: Heart failure type: unspecified Qualified Code(s): I50.9 - Heart failure, unspecified (2) Localized swelling of both lower legs Code(s): R22.43 - LOCALIZED SWELLING, MASS AND LUMP, LOWER LIMB, BILATERAL (3) Acute metabolic encephalopathy Code(s): G93.41 - METABOLIC ENCEPHALOPATHY (4) Acute on chronic renal insufficiency Code(s): N28.9 - DISORDER OF KIDNEY AND URETER, UNSPECIFIED; N18.9 - CHRONIC KIDNEY DISEASE, UNSPECIFIED
[2019-03-15] MEDS: POLYMYXIN B SULFATE/TMP 10 ML OPHTHALMIC SOLUTION OU SCH ×5 (11:00→21:27)
--- NOTE | 2019-03-15 13:36 | ECHO ---
Name: CATERINA EDWARDARASELI Exam:Adult Echocardiogram Study Date: 03/15/2019 08:29 AM Age: 73 yrs Reason For Study: LEG EDEMA Height: 63 in Weight: 235 lb BSA: 2.1 m2 MMode/2D Measurements & Calculations IVSd: 1.0 cm Ao root diam: 2.3 cm LVIDd: 4.9 cm LA dimension: 4.7 cm LVIDs: 4.0 cm LVPWd: 1.1 cm LVPWs: 0.82 cm EDV(Teich): 114.1 ml ESV(Teich): 70.7 ml LVOT diam: 2.0 cm Doppler Measurements & Calculations MV E max santos: 120.9 cm/sec Ao V2 max: 156.1 cm/sec MV A max santos: 106.6 cm/sec Ao max P.7 mmHg MV E/A: 1.1 Ao V2 mean: 102.4 cm/sec MV dec time: 0.24 sec Ao mean P.8 mmHg Ao V2 VTI: 35.3 cm ADRIAN(I,D): 0.98 cm2 ADRIAN(V,D): 1.2 cm2 LV V1 max P.5 mmHg MR max santos: 447.4 cm/sec LV V1 mean P.64 mmHg MR max P.2 mmHg LV V1 max: 60.5 cm/sec LV V1 mean: 36.6 cm/sec LV V1 VTI: 11.5 cm SV(LVOT): 34.5 ml TR max santos: 300.9 cm/sec TR max P.4 mmHg PI end-d santos: 48.3 cm/sec Med Peak E' Santos: 13.1 cm/sec Med E/e': 9.3 Lat Peak E' Santos: 7.8 cm/sec Lat E/e': 15.5 Procedure A two-dimensional transthoracic echocardiogram with color flow and Doppler was performed. The study w as technically difficult with many images being suboptimal in quality. Left Ventricle The left ventricular size, thickness and function are normal. The left ventricular ejection fraction is normal. Left Ventricular Filling pattern is normal for age. The left ventricular wall motion is roxy l. Right Ventricle The right ventricle is not well visualized. Atria The left atrium is moderately dilated. The right atrium is moderately dilated. Mitral Valve There is mild mitral valve thickening. There is no mitral valve stenosis. There is moderate mitral regurgitation. Tricuspid Valve There is mild tricuspid valve thickening. There is no tricuspid stenosis. There was insufficient TR d etected to calculate RV systolic pressure. Aortic Valve The aortic valve is not well visualized. No hemodynamically significant valvular aortic stenosis. No aortic regurgitation is present. Pulmonic Valve The pulmonic valve is not well visualized. There is no pulmonic valvular stenosis. There is no pulmon ic valvular regurgitation. Great Vessels The aortic root is normal size. Pericardium/Pleura There is no pericardial effusion. Interpretation Summary The left ventricular size, thickness and function are normal The left ventricular ejection fraction is normal. The left atrium is moderately dilated. The right atrium is moderately dilated. There is moderate mitral regurgitation. Left Ventricular Filling pattern is normal for age. The left ventricular wall motion is normal. There was insufficient TR detected to calculate RV systolic pressure. MD Preet Teixeira 03/15/2019 01:35 PM
[2019-03-15] MEDS: CARVEDILOL 6.25 MG TABLET (FP) PO SCH ×2 (13:58→21:14)
[2019-03-15] MEDS: ALLOPURINOL 100 MG TABLET (FP) PO SCH (14:00)
[2019-03-15] MEDS: CHOLECALCIFEROL (VITAMIN D3) 1,000 UNIT TABLET (FP) PO SCH (14:01)
[2019-03-15] MEDS: PANTOPRAZOLE 40 MG TABLET (FP) PO SCH (14:01)
[2019-03-15] MEDS: GABAPENTIN 300 MG CAPSULE (FP) PO SCH (14:02)
[2019-03-15] MEDS: CLOPIDOGREL BISULFATE 75 MG TABLET (FP) PO SCH (14:02)
[2019-03-15] MEDS: amLODIPine BESYLATE 5 MG TABLET (FP) PO SCH (14:03)
[2019-03-15] MEDS ORDERED: INSULIN (LEVEMIR) 100 UNITS/ML UNITS SQ ONE (14:07)
--- NOTE | 2019-03-15 15:38 | CONSULT ---
Admitting History and Physical - Primary Care Physician PCP: Margarita Ochoa - Admission History of Present Illness: 72 y/o woman PMH: HTN, HLD, CAD (s/p stents), PPM (2008), CHF, IDDM, Anemia, CKD , Severe Obesity; who presents to the ED with SOB and worsening LE edema x 3days. Associated symptoms include somnolence and dry cough. CT of chest revealed consolidation/atelectasis in right middle lobe with air bronchogram. Unchanged from previous CT dated [address] ordered for altered mental status. Swallow eval ordered as pt having a difficult time swallowing thin liquids and medication. Tolerated reg diet/thin liquids when assessed in Mar, 2018. 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) Pulmonary: Yes: COPD Gastrointestinal: Yes: GERD, Other (anemia, IRON DEF) Renal/: Yes: Renal Inusuff ...: No Heme/Onc: Yes: Anemia Musculoskeletal: Yes: Osteoarthritis Rheumatology: Yes: Gout Endocrine: Yes: Diabetes Mellitus - Past Surgical History Past Surgical History: Yes: AICD, Stent - Smoking History Smoking history: Unknown if ever smoked Have you smoked in the past 12 months: No Aproximately how many cigarettes per day: 0 - Alcohol/Substance Use Hx Alcohol Use: No History of Substance Use: reports: None - Social History 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) History of Recent Travel: No History - Admission Reason For Visit: CHF/HYPERKALEMIA - Diagnostics X-ray: Report Reviewed CT Scan: Report Reviewed - General Mental Status: Awake and Alert, Able to Follow Commands Attention: Distractible, Mild Impairment Ability to Follow Directions: Fair (with gesture.) Head/Neck Control: Good - Hearing Hearing: Functional Speech Evaluation - Communication Primary Language: RUSSIAN CREOLE Communication: Yes: Language Barrier - Speech Characteristics Voice Loudness: Mildly Soft/Quiet Voice Pitch: Yes: Normal Voice Phonatory-based Quality: Yes: Dysphonia, Vocal Wetness - Swallow Evaluation/Bedside Assessment Current Nutritional Intake: Dysphagia Pureed, Thin Liquids Oral Secretions: Yes: Pooling (saliva in oral cavity. frequent coughing, on saliva?) Dentition: Yes: Edentulous, Missing Teeth Facial Symmetry at Rest: Symmetrical Against Resistance Opening: Weak Against Resistance Closing: Weak Pucker Lips: Weak Smile: Weak Lingual Speed of Movement: Reduced Lingual Movement Strgth Against Opposition: Reduced Laryngeal Elevation: Impaired Laryngeal Movement: Reduced Excursion, Labored,delay initiation, Reduced Velocity Bolus Size: Small Oral Prep Time: Increased Timing of Swallow: Delayed Coughing/Throat Clear: Yes Change in Voice: Yes Recommendations - Speech Evaluation, Impression/Plan Impression: Pt seen bedside, constant coughing, pooling of saliva, poorly intelligible speech. Speaking Creole with some Syriac? DElayed swallow onset, but fairly brisk swallow once triggered with 1 tsp applesauce. Coughing resumed again. Etiology unclear. - Dysphagia Impressions/Plan Swallowing Skills: Impaired Dysphagia Impressions: Risk of Aspiration, Ongoing Evaluation *Silent aspiration: cannot be R/O at bedside Recommendations: Other (to reassess as improves.) - Recommendations Diet Consistency: NPO Medication Administration: Crushed with applesauce (if neccessary)
--- NOTE | 2019-03-15 16:30 | PN ---
Progress Note (short form) - Note Progress Note: PULMONARY CONSULTATION DICTATED 03/15/19 IMP ACUTE HYPERCAPNEIC RESPIRATORY FAILURE COUGH ? H/O ASTHMA DYSPNEA ACUTE ON CHRONIC CHF S/P PPM PULMONARY HTN RML CONSOLIDATION LIKELY ATELECTASIS,? RML SYNDROME ASHD DM HTN CKD ANEMIA PLAN LASIX O2 INHALED BRONCHODILATORS COUGH MEDS MEDROL X 24HRS DAILY WTS MONITOR LYTES,RENAL FUNCTION F/U ABGS POSSIBLE FLEX BRONCHOSCOPY TO R/O ENDOBRONCHIAL PATHOLOGY DR TITUS
--- NOTE | 2019-03-15 16:43 | CON.CARD ---
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 She denies chest pain, palpitations, paroxysmal nocturnal dyspnea, orthopnea. 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) Pulmonary: Yes: COPD Gastrointestinal: Yes: GERD, Other (anemia, IRON DEF) Renal/: Yes: Renal Inusuff ...: No Musculoskeletal: Yes: Osteoarthritis Rheumatology: Yes: Gout Endocrine: Yes: Diabetes Mellitus - Past Surgical History Past Surgical History: Yes: AICD, Permanent Pacemaker, Stent - Alcohol/Substance Use Hx Alcohol Use: No History of Substance Use: reports: None - Smoking History Smoking history: Unknown if ever smoked Have you smoked in the past 12 months: No Aproximately how many cigarettes per day: 0 - Social History 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) History of Recent Travel: No Home Medications - Allergies Allergies/Adverse Reactions: Allergies Allergy/AdvReac Type Severity Reaction Status Date / Time No Known Allergies Allergy Verified 01/27/19 17:35 - Home Medications Home Medications: Ambulatory Orders Allopurinol [Zyloprim -] 100 mg PO DAILY 02/24/16 Omeprazole 20 mg PO DAILY 10/02/16 Cholecalciferol (Vitamin D3) [Vitamin D3] 1,000 unit PO DAILY 05/24/18 Furosemide [Lasix -] 40 mg PO DAILY 05/24/18 Pravastatin Sodium 20 mg PO HS 05/24/18 Insulin (Levemir) [Levemir Vial] 22 units SQ DAILY@2200 10/13/18 Insulin (Levemir) [Levemir Vial] 24 unit SQ DAILY@0700 10/13/18 Insulin Aspart [Novolog] 10 unit SQ TID 10/13/18 Aspirin Coated [Ecotrin -] 81 mg PO DAILY tablet.ec 01/30/19 Carvedilol [Coreg -] 12.5 mg PO BID #60 tablet 01/30/19 Amlodipine Besylate 5 mg PO DAILY 03/14/19 Clopidogrel Bisulfate [Clopidogrel] 75 mg PO DAILY 03/14/19 Gabapentin 300 mg PO DAILY 03/14/19 Insulin (Novolog) [Novolog] 10 units SQ AC 03/14/19 Review of Systems - Review of Systems Cardiovascular: reports: Shortness of Breath Respiratory: reports: Cough, SOB, SOB on Exertion Vital Signs: Vital Signs Temperature 98.1 F 03/15/19 16:39 Pulse Rate 89 03/15/19 16:39 Respiratory Rate 22 H 03/15/19 16:39 Blood Pressure 157/74 03/15/19 16:39 O2 Sat by Pulse Oximetry (%) 94 L 03/15/19 07:20 Constitutional: Yes: No Distress, Calm Neck: Yes: Supple Respiratory: Yes: Regular, Diminished, On Nasal O2 Gastrointestinal: Yes: Normal Bowel Sounds, Soft Cardiovascular: Yes: Regular Rate and Rhythm JVD: No Carotid Bruit: No Heart Sounds: Yes: S1, S2 Murmur: Yes: Systolic Murmur, Grade 2 Edema: Yes Edema: LLE: 1+, RLE: 1+ - Other Data Labs, Other Data: CBC, BMP 03/15/19 05:20 03/15/19 05:20 INR, PTT INR 1.13 (0.83-1.09) H 03/15/19 05:20 Troponin, BNP 03/15/19 05:20 Troponin I < 0.02 B-Natriuretic Peptide 1492.1 H Troponin, BNP 03/15/19 05:20 Troponin I < 0.02 B-Natriuretic Peptide 1492.1 H V-paced @ 84 Ejection Fraction %: LVEF > or = 40 % Imaging - Results Chest X-ray: Report Reviewed (Poor inspiration) Cat Scan: Report Reviewed (Chest CT: RML consolidation) Ultrasound: Report Reviewed (No DVT bilaterally) Problem List - Problems (1) Acute CHF Code(s): I50.9 - HEART FAILURE, UNSPECIFIED Qualifiers: Heart failure type: combined systolic and diastolic Qualified Code(s): I50.41 - Acute combined systolic (congestive) and diastolic (congestive) heart failure (2) Acute on chronic renal insufficiency Code(s): N28.9 - DISORDER OF KIDNEY AND URETER, UNSPECIFIED; N18.9 - CHRONIC KIDNEY DISEASE, UNSPECIFIED (3) Biventricular ICD (implantable cardioverter-defibrillator) in place Code(s): Z95.810 - PRESENCE OF AUTOMATIC (IMPLANTABLE) CARDIAC DEFIBRILLATOR (4) CAD (coronary artery disease) Code(s): I25.10 - ATHSCL HEART DISEASE OF [place] CORONARY ARTERY W/O ANG PCTRS Qualifiers: Coronary Disease-Associated Artery/Lesion type: [place] artery [place] vs. transplanted heart: [place] heart Associated angina: without angina Qualified Code(s): I25.10 - Atherosclerotic heart disease of [place] coronary artery without angina pectoris (5) HTN (hypertension) Code(s): I10 - ESSENTIAL (PRIMARY) HYPERTENSION Qualifiers: Hypertension type: essential hypertension Qualified Code(s): I10 - Essential (primary) hypertension (6) History of percutaneous coronary intervention Code(s): Z98.89 - OTHER SPECIFIED POSTPROCEDURAL STATES * DO NOT USE * (7) Hypercholesterolemia Code(s): E78.0 - PURE HYPERCHOLESTEROLEMIA * DO NOT USE * (8) IDDM (insulin dependent diabetes mellitus) Code(s): E11.9 - TYPE 2 DIABETES MELLITUS WITHOUT COMPLICATIONS; Z79.4 - AC/DC REWINDER (CURRENT) USE OF INSULIN Assessment/Plan March 15, 2019 Echo: Normal LV size and fxn, mod ADOLFO, mod MR March 14, 2018 Echo: Mild-mod decreased LVEF 40-45%, pacemaker lead, mild MR, TR, pulm HTN 1. Acute hypercapneic respiratory failure 2. Acute on chronic LV diastolic/systolic failure and pulmonary HTN 3. RML consolidation likely ATX 3. CAD s/p PCI/stent, angina pectoris 4. 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 HTN/HCVD 6. Insulin-dependent type 2 diabetes mellitus 7. Hypercholesterolemia 8. CKD 9. Anemia PLAN: 1. IV diuresis with monitor diuretic response, renal function and electrolytes 2. Continue Carvedilol 12.5 bid, Norvasc 5 qd, Lipitor 10 qhs, Plavix 75 qd, resume valsartan 40 qd once renal fxn stable, d/c ASA 81 qd given stable CAD 3. DVT and GI prophylaxis 4. OOB to chair and ambulate as tolerated 5. BD, short steroid course, O2 as needed, possible flex bronchoscopy to r/o endobronchial pathology 6. Thank you for consultative opportunity
--- NOTE | 2019-03-15 17:26 | CONS ---
DATE OF CONSULTATION: 03/15/2019 REFERRING PHYSICIAN: Margarita Ochoa MD HISTORY: History is obtained from medical records. Patient unable to give history as well as with an icer machine. Patient is a 73-year-old female with past medical history of CHF, chronic kidney disease, hypertension, hyperlipidemia, diabetes, ASHD, status post stents, status post permanent pacemaker in 2007, chronic venous insufficiency, questionable history of asthma, admitted to [facility] with complaint of 3-day history of increasing shortness of breath, dyspnea on exertion, lower extremity edema, and cough nonproductive. Patient denied any complaints of chest pain, nausea, vomiting, or diaphoresis. Denied any fevers or chills or hemoptysis. Patient was admitted. On admission, she underwent a CT scan of the chest which revealed a right middle lobe consolidation which is unchanged from previous exam from January 2019. She also underwent a duplex of the lower extremities, negative. In the ER she underwent a blood gas which revealed evidence of acute hypercapnic respiratory failure with a PCO2 of 51, a PO2 of 136 on an unknown quantity of oxygen. Patient was treated in the ER with IV Lasix and transferred to medical floor for further management. PAST MEDICAL HISTORY: Again includes chronic kidney disease, congestive heart failure, pulmonary hypertension, hypertension, diabetes, ASHD, status post stents, status post permanent pacemaker, chronic venous insufficiency, questionable asthma patient informed RN with the icer machine. REVIEW OF SYSTEMS: Positive cough, positive shortness of breath, positive lower extremity edema. CURRENT MEDICATIONS: Include ceftriaxone, heparin, Neurontin, Zyloprim, Coreg, Norvasc, Lipitor, NovoLog, Levemir, Lasix IV b.i.d., Ecotrin, Plavix, Protonix, and vitamin D3. PHYSICAL EXAMINATION: General: The patient is a well-developed, well-nourished female, awake, alert, coughing, in no acute respiratory distress. Vital Signs: She is afebrile. Blood pressure is 157/62. Respiratory rate is 20. O2 saturation is 94% on room air. HEENT: Normocephalic, atraumatic. Neck: Supple. Heart: Regular, S1, S2. Lungs: Bibasilar crackles one-third up. Abdomen: Soft. Bowel sounds are positive. Extremities: Bilateral lower extremity edema. LABORATORY: WBC is 10.4, hemoglobin 9.2, hematocrit 29.2, with a platelet count of 205,000. INR is 1.13. Blood gas: pH 7.33, PCO2 of 51, a PO2 of 136, a bicarbonate of 36, and a saturation of 98.5, again on an unknown quantity of oxygen. BUN 53 , creatinine 2.2. Alkaline phosphatase of 140. CK is 200 and a BNP is 1492. CT scan of the chest revealed consolidation, atelectasis in right middle lobe with air bronchogram. No evidence of mediastinal adenopathy. No pleural effusion is appreciated. IMPRESSION: 1. Acute hypercapnic respiratory failure. 2. Likely [id number] congestive heart failure. 3. Questionable history of asthma. 4. Cough. 5. Arteriosclerotic heart disease status post stents, status post permanent pacemaker. 6. Pulmonary hypertension. 7. Right middle lobe consolidation, likely atelectasis. 8. Diabetes. 9. Hypertension. 10. Chronic kidney disease. 11. Anemia. PLAN: IV Lasix, supplemental O2, inhaled bronchodilator, antitussives, Medrol for 24 hours, daily weights. Monitor electrolytes, CBC, renal function. Obtain followup blood gas, ABGs, followup chest x-rays. May consider possible flexible bronchoscopy as outpatient to evaluate right middle lobe process to rule out possible endobronchial pathology. JAMIL TITUS M.D. GUZMAN/[id number] MTDD
[2019-03-15] MEDS: guaiFENesin/CODEINE 5 ML UNIT-DOSE CUPS PO PRN (18:07)
[2019-03-15] MEDS: methylPREDNISolone NA SUCC 40 MG/1 ML VIAL IVPUSH SCH ×2 (18:07→21:14)
[2019-03-15] MEDS ORDERED: DEXTROSE 5%-WATER - 50 ML IVPB ONE ×2 (18:11→18:15)
[2019-03-15] MEDS ORDERED: cefTRIAXone SODIUM 1 GM VIAL ONE ×2 (18:11→18:15)
[2019-03-15] MEDS: CEFTRIAXONE 1 GM in DEXTROSE 5%-WATER - 50 ML IVPB SCH (18:16)
[2019-03-15] MEDS: ALBUTEROL SO4 2.5/IPRATROPIUM 0.5 INH SOL 3 ML VIAL.NEB. NEB SCH (21:12)
[2019-03-15] MEDS: ATORVASTATIN CA 10 MG TABLET (FP) PO SCH (21:14)
[2019-03-16] MEDS: methylPREDNISolone NA SUCC 40 MG/1 ML VIAL IVPUSH SCH ×2 (03:28→10:43)
[2019-03-16] MEDS: guaiFENesin/CODEINE 5 ML UNIT-DOSE CUPS PO PRN ×2 (03:29→14:49)
[2019-03-16] MEDS: FUROSEMIDE 40 MG/4 ML INJECTABLE VIAL IVPUSH SCH ×2 (06:17→14:49)
[2019-03-16] MEDS: POLYMYXIN B SULFATE/TMP 10 ML OPHTHALMIC SOLUTION OU SCH ×2 (06:17→10:45)
[2019-03-16] MEDS: INSULIN (LEVEMIR) 100 UNITS/ML UNITS SQ SCH ×2 (06:17→21:37)
[2019-03-16] MEDS: HEPARIN NA (PORCINE) 5,000 UNITS/ML 1ML VIAL SQ SCH ×3 (06:17→21:37)
[2019-03-16] MEDS: INSULIN SLIDING SCALE (NOVOLOG) 1 VIAL SQ SCH ×4 (06:18→21:38)
[2019-03-16 07:03] LABS: BASO % 0.1 % (0-2.0); HEMATOCRIT 30.4 % (32.4-45.2); HEMOGLOBIN 9.6 GM/dL (10.7-15.3); LYMPH % 6.1 % (8-40); MCH 21.5 pg (25.7-33.7); MCHC 31.5 g/dl (32.0-36.0); MEAN CELL VOLUME 68.3 fl (80-96); MEAN PLT VOLUME 10.9 fl (7.5-11.1); MONO % 1.2 % (3.8-10.2); NEUT % 92.6 % (42.8-82.8); PLATELET COUNT 217 K/MM3 (134-434); RBC 4.45 M/mm3 (3.60-5.2); RDW 16.2 % (11.6-15.6); WHITE BLOOD COUNT 10.7 K/mm3 (4.0-10.0)
[2019-03-16 07:15] LABS: BILIRUBIN,TOTAL 0.2 mg/dL (0.2-1); CALCIUM 9.1 mg/dL (8.5-10.1); CREATININE 2.2 mg/dL (0.55-1.3); POTASSIUM 4.5 mmol/L (3.5-5.1); TOT PROT 7.4 g/dl (6.4-8.2)
[2019-03-16] MEDS: ALBUTEROL SO4 2.5/IPRATROPIUM 0.5 INH SOL 3 ML VIAL.NEB. NEB SCH ×3 (07:39→21:05)
[2019-03-16] MEDS ORDERED: cefTRIAXone SODIUM 1 GM VIAL ONE (08:30)
[2019-03-16] MEDS ORDERED: DEXTROSE 5%-WATER - 50 ML IVPB ONE (08:30)
--- NOTE | 2019-03-16 09:33 | PN ---
Progress Note, Physician History of Present Illness: Dyspnea, LE edema, cough, altered sensorium since improving with diuresis. - Current Medication List Current Medications: Active Medications Albuterol/Ipratropium (Duoneb -) 1 amp NEB RTID [facility] Last Admin: 03/16/19 07:39 Dose: 1 amp Allopurinol (Zyloprim -) 100 mg PO DAILY [facility] Last Admin: 03/15/19 14:00 Dose: Not Given Amlodipine Besylate (Norvasc -) 5 mg PO DAILY [facility] Last Admin: 03/15/19 14:03 Dose: 5 mg Atorvastatin Calcium (Lipitor -) 10 mg PO HS [facility] Last Admin: 03/15/19 21:14 Dose: 10 mg Carvedilol (Coreg -) 12.5 mg PO BID [facility] Last Admin: 03/15/19 21:14 Dose: 12.5 mg Cholecalciferol (Vitamin D3 -) 1,000 unit PO DAILY [facility] Last Admin: 03/15/19 14:01 Dose: Not Given Clopidogrel Bisulfate (Plavix -) 75 mg PO DAILY [facility] Last Admin: 03/15/19 14:02 Dose: Not Given Furosemide (Lasix Injection -) 40 mg IVPUSH BIDLASIX [facility] Last Admin: 03/16/19 06:17 Dose: 40 mg Gabapentin (Neurontin -) 300 mg PO DAILY [facility] Last Admin: 03/15/19 14:02 Dose: Not Given Guaifenesin/Codeine Phosphate (Robitussin Ac -) 5 ml PO QID PRN PRN Reason: COUGH Last Admin: 03/16/19 03:29 Dose: 5 ml Heparin Sodium (Porcine) (Heparin -) 5,000 unit SQ TID [facility] Last Admin: 03/16/19 06:17 Dose: 5,000 unit Ceftriaxone Sodium 1 gm/ (Dextrose) 50 mls @ 100 mls/hr IVPB DAILY [facility] Last Admin: 03/15/19 18:16 Dose: 100 mls/hr Insulin Aspart (Novolog Vial Sliding Scale -) 1 vial SQ ACHS [facility]; Protocol Last Admin: 03/16/19 06:18 Dose: 4 units Insulin Detemir (Levemir Vial) 22 units SQ DAILY@2200 [facility] Last Admin: 03/15/19 21:15 Dose: 22 units Insulin Detemir (Levemir Vial) 24 units SQ DAILY@0700 [facility] Last Admin: 03/16/19 06:17 Dose: 24 unit Methylprednisolone Sodium Succinate (Solu-Medrol -) 40 mg IVPUSH Q6H-IV [facility] Last Admin: 03/16/19 03:28 Dose: 40 mg Pantoprazole Sodium (Protonix -) 40 mg PO DAILY [facility] Last Admin: 03/15/19 14:01 Dose: Not Given Polymyxin/Trimethoprim Sulfate (Polytrim Opthalmic Solution -) 1 drop OU Q4HWA [facility] Last Admin: 03/16/19 06:17 Dose: 1 drop - Objective Vital Signs: Vital Signs Temperature 97.6 F 03/16/19 09:25 Pulse Rate 77 03/16/19 09:25 Respiratory Rate 22 H 03/16/19 09:25 Blood Pressure 158/75 03/16/19 09:25 O2 Sat by Pulse Oximetry (%) 94 L 03/15/19 21:00 Constitutional: Yes: No Distress, Calm Neck: Yes: Supple Cardiovascular: Yes: Regular Rate and Rhythm Respiratory: Yes: Regular, Diminished, On Nasal O2 Gastrointestinal: Yes: Normal Bowel Sounds, Soft Edema: No Labs: CBC, BMP 03/16/19 05:30 03/16/19 05:30 INR, PTT INR 1.13 (0.83-1.09) H 03/15/19 05:20 - ....Imaging EKG: Report Reviewed (Tele: V-paced) Problem List - Problems (1) Acute CHF Code(s): I50.9 - HEART FAILURE, UNSPECIFIED Qualifiers: Heart failure type: combined systolic and diastolic Qualified Code(s): I50.41 - Acute combined systolic (congestive) and diastolic (congestive) heart failure (2) Acute on chronic renal insufficiency Code(s): N28.9 - DISORDER OF KIDNEY AND URETER, UNSPECIFIED; N18.9 - CHRONIC KIDNEY DISEASE, UNSPECIFIED (3) Biventricular ICD (implantable cardioverter-defibrillator) in place Code(s): Z95.810 - PRESENCE OF AUTOMATIC (IMPLANTABLE) CARDIAC DEFIBRILLATOR (4) CAD (coronary artery disease) Code(s): I25.10 - ATHSCL HEART DISEASE OF [place] CORONARY ARTERY W/O ANG PCTRS Qualifiers: Coronary Disease-Associated Artery/Lesion type: [place] artery [place] vs. transplanted heart: [place] heart Associated angina: without angina Qualified Code(s): I25.10 - Atherosclerotic heart disease of [place] coronary artery without angina pectoris (5) HTN (hypertension) Code(s): I10 - ESSENTIAL (PRIMARY) HYPERTENSION Qualifiers: Hypertension type: essential hypertension Qualified Code(s): I10 - Essential (primary) hypertension (6) History of percutaneous coronary intervention Code(s): Z98.89 - OTHER SPECIFIED POSTPROCEDURAL STATES * DO NOT USE * (7) Hypercholesterolemia Code(s): E78.0 - PURE HYPERCHOLESTEROLEMIA * DO NOT USE * (8) IDDM (insulin dependent diabetes mellitus) Code(s): E11.9 - TYPE 2 DIABETES MELLITUS WITHOUT COMPLICATIONS; Z79.4 - METER READER CHIEF (CURRENT) USE OF INSULIN Assessment/Plan March 15, 2019 Echo: Normal LV size and fxn, mod ADOLFO, mod MR March 14, 2018 Echo: Mild-mod decreased LVEF 40-45%, pacemaker lead, mild MR, TR, pulm HTN 1. Acute hypercapneic respiratory failure 2. Acute on chronic LV diastolic/systolic failure and pulmonary HTN 3. RML consolidation likely ATX 4. CAD s/p PCI/stent, angina pectoris 5. 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 HTN/HCVD 7. Insulin-dependent type 2 diabetes mellitus 8. Hypercholesterolemia 9. CKD 10. Anemia PLAN: 1. Resume oral diuresis with monitor diuretic response, renal function and electrolytes 2. Continue Carvedilol 12.5 bid, Norvasc 5 qd, Lipitor 10 qhs, Plavix 75 qd, resume valsartan 40 qd once renal fxn stable, d/c ASA 81 qd given stable CAD 3. DVT and GI prophylaxis 4. OOB to chair and ambulate as tolerated 5. BD, short steroid course, O2 as needed, possible flex bronchoscopy to r/o endobronchial pathology
[2019-03-16] MEDS: GABAPENTIN 300 MG CAPSULE (FP) PO SCH (10:43)
[2019-03-16] MEDS: CARVEDILOL 6.25 MG TABLET (FP) PO SCH ×2 (10:44→21:37)
[2019-03-16] MEDS: CLOPIDOGREL BISULFATE 75 MG TABLET (FP) PO SCH (10:44)
[2019-03-16] MEDS: amLODIPine BESYLATE 5 MG TABLET (FP) PO SCH (10:44)
[2019-03-16] MEDS: ALLOPURINOL 100 MG TABLET (FP) PO SCH (10:45)
[2019-03-16] MEDS: PANTOPRAZOLE 40 MG TABLET (FP) PO SCH (10:45)
[2019-03-16] MEDS: CHOLECALCIFEROL (VITAMIN D3) 1,000 UNIT TABLET (FP) PO SCH (10:45)
[2019-03-16] MEDS: CEFTRIAXONE 1 GM in DEXTROSE 5%-WATER - 50 ML IVPB SCH (10:45)
[2019-03-16 10:58] LABS: ANISOCYTOSIS 2+; MACROCYTOSIS 0; OVALOCYTE 1+; PLATELET ESTIMATE NORMAL; TARGET CELLS 1+
--- NOTE | 2019-03-16 11:06 | PN ---
Progress Note (short form) - Note Progress Note: PULMONARY Breathing better with diuresis. No fevers recorded. Vital Signs Period Temp Pulse Resp BP Sys/Etienne Pulse Ox Last 24 Hr 97.6 F-99.0 F 74-96 20-22 136-173/57-77 94-100 Gen: NAD at rest Heart: RRR Lung: decreased breath sounds at the bases Abd: soft, nontender Ext: no edema CBC, BMP 03/16/19 05:30 03/16/19 05:30 Active Medications Albuterol/Ipratropium (Duoneb -) 1 amp NEB RTID [facility] Last Admin: 03/16/19 07:39 Dose: 1 amp Allopurinol (Zyloprim -) 100 mg PO DAILY [facility] Last Admin: 03/16/19 10:45 Dose: 100 mg Amlodipine Besylate (Norvasc -) 5 mg PO DAILY [facility] Last Admin: 03/16/19 10:44 Dose: 5 mg Atorvastatin Calcium (Lipitor -) 10 mg PO HS [facility] Last Admin: 03/15/19 21:14 Dose: 10 mg Carvedilol (Coreg -) 12.5 mg PO BID [facility] Last Admin: 03/16/19 10:44 Dose: 12.5 mg Cholecalciferol (Vitamin D3 -) 1,000 unit PO DAILY [facility] Last Admin: 03/16/19 10:45 Dose: 1,000 unit Clopidogrel Bisulfate (Plavix -) 75 mg PO DAILY [facility] Last Admin: 03/16/19 10:44 Dose: 75 mg Furosemide (Lasix Injection -) 40 mg IVPUSH BIDLASIX [facility] Stop: 03/16/19 17:00 Last Admin: 03/16/19 06:17 Dose: 40 mg Furosemide (Lasix -) 40 mg PO DAILY [facility] Gabapentin (Neurontin -) 300 mg PO DAILY [facility] Last Admin: 03/16/19 10:43 Dose: 300 mg Guaifenesin/Codeine Phosphate (Robitussin Ac -) 5 ml PO QID PRN PRN Reason: COUGH Last Admin: 03/16/19 03:29 Dose: 5 ml Heparin Sodium (Porcine) (Heparin -) 5,000 unit SQ TID [facility] Last Admin: 03/16/19 06:17 Dose: 5,000 unit Ceftriaxone Sodium 1 gm/ (Dextrose) 50 mls @ 100 mls/hr IVPB DAILY [facility] Last Admin: 03/16/19 10:45 Dose: 100 mls/hr Insulin Aspart (Novolog Vial Sliding Scale -) 1 vial SQ ACHS [facility]; Protocol Last Admin: 03/16/19 06:18 Dose: 4 units Insulin Detemir (Levemir Vial) 22 units SQ DAILY@2200 [facility] Last Admin: 03/15/19 21:15 Dose: 22 units Insulin Detemir (Levemir Vial) 24 units SQ DAILY@0700 [facility] Last Admin: 03/16/19 06:17 Dose: 24 unit Methylprednisolone Sodium Succinate (Solu-Medrol -) 40 mg IVPUSH Q6H-IV [facility] Last Admin: 03/16/19 10:43 Dose: 40 mg Pantoprazole Sodium (Protonix -) 40 mg PO DAILY [facility] Last Admin: 03/16/19 10:45 Dose: 40 mg Polymyxin/Trimethoprim Sulfate (Polytrim Opthalmic Solution -) 1 drop OU Q4HWA [facility] Last Admin: 03/16/19 10:45 Dose: 1 drop A/P Acute Hypercapneic Respiratory Failure improving Acute on Chronic Systolic/Diastolic Heart Failure Pulmonary HTN RML Atelectasis CAD HTN CKD Anemia - continue lasix - monitor urine output, creatinine - can d/c medrol - inhaled bronchodilators - O2 to keep SpO2 >90% - on empiric antibiotics - f/u cultures - pt improved with diuresis and CT findings stable, can perform bronchoscopy as outpt
--- NOTE | 2019-03-16 12:16 | PN ---
Progress Note (short form) - Note Progress Note: Altered mental status improved recognized me no SOB No distress coughing+ teary eyes no erythema in eyes Vital Signs - 24 hr 03/15/19 03/15/19 03/15/19 16:39 16:45 17:06 Temperature 98.1 F 98.1 F Pulse Rate 89 89 Respiratory 22 H 22 H Rate Blood Pressure 157/74 157/74 O2 Sat by Pulse 100 Oximetry (%) 03/15/19 03/15/19 03/15/19 18:00 20:00 21:00 Temperature 98 F 99.0 F Pulse Rate 96 H 92 H Respiratory 20 20 20 Rate Blood Pressure 143/65 173/77 H O2 Sat by Pulse 94 L Oximetry (%) 03/16/19 03/16/19 03/16/19 02:00 05:48 09:25 Temperature 98.5 F 97.7 F 97.6 F Pulse Rate 74 76 77 Respiratory 20 20 22 H Rate Blood Pressure 136/57 L 149/72 158/75 O2 Sat by Pulse Oximetry (%) Current Medications Generic Name Dose Route Start Last Admin Trade Name Freq PRN Reason Stop Dose Admin Albuterol/Ipratropium 1 amp 03/15/19 20:00 03/16/19 07:39 Duoneb - NEB 1 amp RTID [facility]IN Administration Allopurinol 100 mg 03/15/19 10:00 03/16/19 10:45 Zyloprim - PO 100 mg DAILY [facility] Administration Amlodipine Besylate 5 mg 03/15/19 10:00 03/16/19 10:44 Norvasc - PO 5 mg DAILY [facility] Administration Atorvastatin Calcium 10 mg 03/14/19 22:00 03/15/19 21:14 Lipitor - PO 10 mg HS [facility] Administration Carvedilol 12.5 mg 03/14/19 22:00 03/16/19 10:44 Coreg - PO 12.5 mg BID [facility] Administration Cholecalciferol 1,000 unit 03/15/19 10:00 03/16/19 10:45 Vitamin D3 - PO 1,000 unit DAILY [facility] Administration Clopidogrel Bisulfate 75 mg 03/15/19 10:00 03/16/19 10:44 Plavix - PO 75 mg DAILY [facility] Administration Furosemide 40 mg 03/15/19 06:00 03/16/19 06:17 Lasix Injection - IVPUSH 03/16/19 17:00 40 mg BIDLASIX [facility] Administration Furosemide 40 mg 03/17/19 10:00 Lasix - PO DAILY [facility] Gabapentin 300 mg 03/15/19 10:00 03/16/19 10:43 Neurontin - PO 300 mg DAILY [facility] Administration Guaifenesin/Codeine Phosphate 5 ml 03/15/19 16:47 03/16/19 03:29 Robitussin Ac - PO 5 ml QID PRN Administration COUGH Heparin Sodium (Porcine) 5,000 unit 03/15/19 06:00 03/16/19 06:17 Heparin - SQ 5,000 unit TID [facility] Administration Ceftriaxone Sodium 1 gm/ 50 mls @ 100 mls/hr 03/15/19 15:15 03/16/19 10:45 Dextrose IVPB 100 mls/hr DAILY [facility] Administration Insulin Aspart 1 vial 03/14/19 22:00 03/16/19 11:33 Novolog Vial Sliding Scale - SQ 8 units ACHS [facility] Administration Protocol Insulin Detemir 22 units 03/14/19 22:00 03/15/19 21:15 Levemir Vial SQ 22 units DAILY@2200 [facility] Administration Insulin Detemir 24 units 03/15/19 07:00 03/16/19 06:17 Levemir Vial SQ 24 unit DAILY@0700 [facility] Administration Pantoprazole Sodium 40 mg 03/15/19 10:00 03/16/19 10:45 Protonix - PO 40 mg DAILY [facility] Administration Laboratory Results - last 24 hr 03/15/19 03/15/19 03/15/19 14:14 18:31 21:13 WBC RBC Hgb Hct MCV MCH MCHC RDW Plt Count MPV Absolute Neuts (auto) Neutrophils % Neutrophils % (Manual) Band Neutrophils % Lymphocytes % Lymphocytes % (Manual) Monocytes % Monocytes % (Manual) Eosinophils % Eosinophils % (Manual) Basophils % Basophils % (Manual) Myelocytes % (Man) Promyelocytes % (Man) Blast Cells % (Manual) Nucleated RBC % Metamyelocytes Hypochromia Platelet Estimate Polychromasia Poikilocytosis Anisocytosis Microcytosis Macrocytosis Target Cells Ovalocytes Sodium Potassium Chloride Carbon Dioxide Anion Gap BUN Creatinine Est GFR (CKD-EPI)AfAm Est GFR (CKD-EPI)NonAf POC Glucometer 142 145 199 Random Glucose Calcium Total Bilirubin AST ALT Alkaline Phosphatase Total Protein Albumin 05/07/2703/16/19 03/16/19 05:30 05:30 05:49 WBC 10.7 H RBC 4.45 Hgb 9.6 L Hct 30.4 L MCV 68.3 L MCH 21.5 L MCHC 31.5 L RDW 16.2 H Plt Count 217 MPV 10.9 Absolute Neuts (auto) 9.9 H Neutrophils % 92.6 H D Neutrophils % (Manual) 90.0 H Band Neutrophils % 2.0 Lymphocytes % 6.1 L D Lymphocytes % (Manual) 6.0 L Monocytes % 1.2 L D Monocytes % (Manual) 1 L Eosinophils % 0.0 D Eosinophils % (Manual) 0.0 Basophils % 0.1 Basophils % (Manual) 0.0 Myelocytes % (Man) 0 Promyelocytes % (Man) 0 Blast Cells % (Manual) 0 Nucleated RBC % 0 Metamyelocytes 1 Hypochromia 2+ Platelet Estimate Normal Polychromasia 1+ Poikilocytosis 1+ Anisocytosis 2+ Microcytosis 2+ Macrocytosis 0 Target Cells 1+ Ovalocytes 1+ Sodium 144 Potassium 4.5 Chloride 110 H Carbon Dioxide 31 Anion Gap 3 L BUN 59 H Creatinine 2.2 H Est GFR (CKD-EPI)AfAm 24.78 Est GFR (CKD-EPI)NonAf 21.38 POC Glucometer 201 Random Glucose 224 H Calcium 9.1 Total Bilirubin 0.2 AST 11 L ALT 12 L Alkaline Phosphatase 137 H Total Protein 7.4 Albumin 3.0 L 03/16/19 11:29 WBC RBC Hgb Hct MCV MCH MCHC RDW Plt Count MPV Absolute Neuts (auto) Neutrophils % Neutrophils % (Manual) Band Neutrophils % Lymphocytes % Lymphocytes % (Manual) Monocytes % Monocytes % (Manual) Eosinophils % Eosinophils % (Manual) Basophils % Basophils % (Manual) Myelocytes % (Man) Promyelocytes % (Man) Blast Cells % (Manual) Nucleated RBC % Metamyelocytes Hypochromia Platelet Estimate Polychromasia Poikilocytosis Anisocytosis Microcytosis Macrocytosis Target Cells Ovalocytes Sodium Potassium Chloride Carbon Dioxide Anion Gap BUN Creatinine Est GFR (CKD-EPI)AfAm Est GFR (CKD-EPI)NonAf POC Glucometer 323 Random Glucose Calcium Total Bilirubin AST ALT Alkaline Phosphatase Total Protein Albumin No pallor S1 S2 RRR Lungs decreased Abd- soft, obese, NT edema+ PLAN CT chest , Head ct noted Pulmonary eval for persistent opacity/consolidation seen on CT Chest -- appreciated -- dc steroids Cardiology eval noted Check urine and blood cultures-- r/o septic source-- will start empiric antibiotics--ct head shows sinusitis on Lasix po Follow up of renal function continue meds swallow eval-- spoke with Yessenia mental status improving Problem List - Problems (1) Acute CHF Code(s): I50.9 - HEART FAILURE, UNSPECIFIED Qualifiers: Heart failure type: combined systolic and diastolic Qualified Code(s): I50.41 - Acute combined systolic (congestive) and diastolic (congestive) heart failure (2) Localized swelling of both lower legs Code(s): R22.43 - LOCALIZED SWELLING, MASS AND LUMP, LOWER LIMB, BILATERAL (3) Acute metabolic encephalopathy Code(s): G93.41 - METABOLIC ENCEPHALOPATHY (4) Acute on chronic renal insufficiency Code(s): N28.9 - DISORDER OF KIDNEY AND URETER, UNSPECIFIED; N18.9 - CHRONIC KIDNEY DISEASE, UNSPECIFIED
--- NOTE | 2019-03-16 12:48 | PN ---
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 Pt looks and feels much better. 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 She reported pain in eyes and throat that went down to her chest. She denied difficulty swallowing but odynophagia with solids when her throat was hurting her. She seemed fully oriented and a good historian during the conversation. She feels much better, coughing but less. She said the medication she was given has helped her a lot. Vocal quality improved. Swallowing puree/thin liquid without complaints or difficulty observed.
[2019-03-16] MEDS: ATORVASTATIN CA 10 MG TABLET (FP) PO SCH (21:38)
[2019-03-17] MEDS ORDERED: FUROSEMIDE 40 MG/4 ML INJECTABLE VIAL IVPUSH SCH (06:00)
[2019-03-17] MEDS: INSULIN (LEVEMIR) 100 UNITS/ML UNITS SQ SCH ×2 (06:33→21:56)
[2019-03-17] MEDS: HEPARIN NA (PORCINE) 5,000 UNITS/ML 1ML VIAL SQ SCH ×3 (06:33→21:53)
[2019-03-17] MEDS: INSULIN SLIDING SCALE (NOVOLOG) 1 VIAL SQ SCH ×4 (06:33→21:56)
--- NOTE | 2019-03-17 09:30 | PN ---
Progress Note, Physician History of Present Illness: Dyspnea, LE edema, cough, altered sensorium since improving with diuresis. - Current Medication List Current Medications: Active Medications Albuterol/Ipratropium (Duoneb -) 1 amp NEB RTID [facility]S [facility]CLUDE 234 BEDS AT [facility] Last Admin: 03/16/19 21:05 Dose: 1 amp Allopurinol (Zyloprim -) 100 mg PO DAILY [facility]S [facility]CLUDE 234 BEDS AT [facility] Amlodipine Besylate (Norvasc -) 5 mg PO DAILY [facility] 234 BEDS AT [facility] Atorvastatin Calcium (Lipitor -) 10 mg PO HS COUNTS [facility]CLUDE 234 BEDS AT [facility] Last Admin: 03/16/19 21:38 Dose: 10 mg Carvedilol (Coreg -) 12.5 mg PO BID [facility] 234 B[facility]S [facility] Last Admin: 03/16/19 21:37 Dose: 12.5 mg Cholecalciferol (Vitamin D3 -) 1,000 unit PO DAILY [facility] 234 BEDS [facility] Clopidogrel Bisulfate (Plavix -) 75 mg PO DAILY [facility] 234 BEDS AT [facility] Furosemide (Lasix -) 40 mg PO DAILY [facility] 234 B[facility]S [facility] Gabapentin (Neurontin -) 300 mg PO DAILY [facility] 234 [facility]S [facility] Guaifenesin/Codeine Phosphate (Robitussin Ac -) 5 ml PO QID PRN PRN Reason: COUGH Heparin Sodium (Porcine) (Heparin -) 5,000 unit SQ TID [facility]S [facility] 234 BEDS [facility] Last Admin: 03/17/19 06:33 Dose: 5,000 unit Ceftriaxone Sodium 1 gm/ (Dextrose) 50 mls @ 100 mls/hr IVPB DAILY [facility] 234 BEDS AT [facility] Insulin Aspart (Novolog Vial Sliding Scale -) 1 vial SQ ACHS COUNTS [facility]CLUDE 234 BEDS AT [facility]; Protocol Last Admin: 03/17/19 06:33 Dose: 6 units Insulin Detemir (Levemir Vial) 22 units SQ DAILY@2200 [facility]S [facility]CLUDE 234 BEDS AT [facility] Last Admin: 03/16/19 21:37 Dose: 22 units Insulin Detemir (Levemir Vial) 24 units SQ DAILY@0700 [facility]S [facility]CLUDE 234 BEDS AT [facility] Last Admin: 03/17/19 06:33 Dose: 24 units Pantoprazole Sodium (Protonix -) 40 mg PO DAILY [facility]CLUDE 234 BEDS AT [facility] - Objective Vital Signs: Vital Signs Temperature 98.2 F 03/17/19 06:00 Pulse Rate 68 03/17/19 06:00 Respiratory Rate 20 03/17/19 06:00 Blood Pressure 120/58 L 03/17/19 06:00 O2 Sat by Pulse Oximetry (%) 98 03/16/19 21:00 Labs: CBC, BMP 03/16/19 05:30 03/16/19 05:30 INR, PTT INR 1.13 (0.83-1.09) H 03/15/19 05:20 Problem List - Problems (1) Acute CHF Code(s): I50.9 - HEART FAILURE, UNSPECIFIED Qualifiers: Heart failure type: combined systolic and diastolic Qualified Code(s): I50.41 - Acute combined systolic (congestive) and diastolic (congestive) heart failure (2) Acute on chronic renal insufficiency Code(s): N28.9 - DISORDER OF KIDNEY AND URETER, UNSPECIFIED; N18.9 - CHRONIC KIDNEY DISEASE, UNSPECIFIED (3) Biventricular ICD (implantable cardioverter-defibrillator) in place Code(s): Z95.810 - PRESENCE OF AUTOMATIC (IMPLANTABLE) CARDIAC DEFIBRILLATOR (4) CAD (coronary artery disease) Code(s): I25.10 - ATHSCL HEART DISEASE OF [place] CORONARY ARTERY W/O ANG PCTRS Qualifiers: Coronary Disease-Associated Artery/Lesion type: [place] artery [place] vs. transplanted heart: [place] heart Associated angina: without angina Qualified Code(s): I25.10 - Atherosclerotic heart disease of [place] coronary artery without angina pectoris (5) HTN (hypertension) Code(s): I10 - ESSENTIAL (PRIMARY) HYPERTENSION Qualifiers: Hypertension type: essential hypertension Qualified Code(s): I10 - Essential (primary) hypertension (6) History of percutaneous coronary intervention Code(s): Z98.89 - OTHER SPECIFIED POSTPROCEDURAL STATES * DO NOT USE * (7) Hypercholesterolemia Code(s): E78.0 - PURE HYPERCHOLESTEROLEMIA * DO NOT USE * (8) IDDM (insulin dependent diabetes mellitus) Code(s): E11.9 - TYPE 2 DIABETES MELLITUS WITHOUT COMPLICATIONS; Z79.4 - MANAGER EVENT (CURRENT) USE OF INSULIN Assessment/Plan March 15, 2019 Echo: Normal LV size and fxn, mod ADOLFO, mod MR March 14, 2018 Echo: Mild-mod decreased LVEF 40-45%, pacemaker lead, mild MR, TR, pulm HTN 1. Acute hypercapneic respiratory failure 2. Acute on chronic LV diastolic/systolic failure and pulmonary HTN 3. RML consolidation likely ATX 4. CAD s/p PCI/stent, angina pectoris 5. 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 HTN/HCVD 7. Insulin-dependent type 2 diabetes mellitus 8. Hypercholesterolemia 9. CKD 10. Anemia PLAN: 1. Resume oral diuresis with monitor diuretic response, renal function and electrolytes 2. Continue Carvedilol 12.5 bid, Norvasc 5 qd, Lipitor 10 qhs, Plavix 75 qd, resume valsartan 40 qd once renal fxn stable, d/c ASA 81 qd given stable CAD 3. DVT and GI prophylaxis 4. OOB to chair and ambulate as tolerated 5. BD, short steroid course, O2 as needed, possible flex bronchoscopy to r/o endobronchial pathology
[2019-03-17] MEDS ORDERED: FUROSEMIDE 40 MG TABLET (FP) PO SCH (10:00)
[2019-03-17] MEDS ORDERED: DEXTROSE 5%-WATER - 50 ML IVPB ONE (10:30)
[2019-03-17] MEDS ORDERED: cefTRIAXone SODIUM 1 GM VIAL ONE (10:30)
[2019-03-17] MEDS: ALBUTEROL SO4 2.5/IPRATROPIUM 0.5 INH SOL 3 ML VIAL.NEB. NEB SCH ×3 (10:35→20:32)
--- NOTE | 2019-03-17 10:44 | PN ---
Progress Note, Physician History of Present Illness: Dyspnea, LE edema, cough, altered sensorium since improving with diuresis. - Current Medication List Current Medications: Active Medications Albuterol/Ipratropium (Duoneb -) 1 amp NEB RTID [facility] Last Admin: 03/16/19 21:05 Dose: 1 amp Allopurinol (Zyloprim -) 100 mg PO DAILY [facility] Amlodipine Besylate (Norvasc -) 5 mg PO DAILY [facility] Atorvastatin Calcium (Lipitor -) 10 mg PO HS [facility] Last Admin: 03/16/19 21:38 Dose: 10 mg Carvedilol (Coreg -) 12.5 mg PO BID [facility] Last Admin: 03/16/19 21:37 Dose: 12.5 mg Cholecalciferol (Vitamin D3 -) 1,000 unit PO DAILY [facility] Clopidogrel Bisulfate (Plavix -) 75 mg PO DAILY [facility] Furosemide (Lasix -) 40 mg PO DAILY [facility] Gabapentin (Neurontin -) 300 mg PO DAILY [facility] Guaifenesin/Codeine Phosphate (Robitussin Ac -) 5 ml PO QID PRN PRN Reason: COUGH Heparin Sodium (Porcine) (Heparin -) 5,000 unit SQ TID [facility] Last Admin: 03/17/19 06:33 Dose: 5,000 unit Ceftriaxone Sodium 1 gm/ (Dextrose) 50 mls @ 100 mls/hr IVPB DAILY [facility] Insulin Aspart (Novolog Vial Sliding Scale -) 1 vial SQ ACHS [facility]; Protocol Last Admin: 03/17/19 06:33 Dose: 6 units Insulin Detemir (Levemir Vial) 22 units SQ DAILY@2200 [facility] Last Admin: 03/16/19 21:37 Dose: 22 units Insulin Detemir (Levemir Vial) 24 units SQ DAILY@0700 [facility] Last Admin: 03/17/19 06:33 Dose: 24 units Pantoprazole Sodium (Protonix -) 40 mg PO DAILY [facility] - Objective Vital Signs: Vital Signs Temperature 98.2 F 03/17/19 06:00 Pulse Rate 68 03/17/19 06:00 Respiratory Rate 20 03/17/19 06:00 Blood Pressure 120/58 L 03/17/19 06:00 O2 Sat by Pulse Oximetry (%) 98 03/16/19 21:00 Constitutional: Yes: No Distress, Calm Neck: Yes: Supple Cardiovascular: Yes: Regular Rate and Rhythm Respiratory: Yes: Regular, Diminished, On Nasal O2 Gastrointestinal: Yes: Normal Bowel Sounds, Soft Edema: No Labs: CBC, BMP 03/16/19 05:30 03/16/19 05:30 INR, PTT INR 1.13 (0.83-1.09) H 03/15/19 05:20 - ....Imaging EKG: Report Reviewed (Tele: AV paced) Problem List - Problems (1) Acute CHF Code(s): I50.9 - HEART FAILURE, UNSPECIFIED Qualifiers: Heart failure type: combined systolic and diastolic Qualified Code(s): I50.41 - Acute combined systolic (congestive) and diastolic (congestive) heart failure (2) Acute on chronic renal insufficiency Code(s): N28.9 - DISORDER OF KIDNEY AND URETER, UNSPECIFIED; N18.9 - CHRONIC KIDNEY DISEASE, UNSPECIFIED (3) Biventricular ICD (implantable cardioverter-defibrillator) in place Code(s): Z95.810 - PRESENCE OF AUTOMATIC (IMPLANTABLE) CARDIAC DEFIBRILLATOR (4) CAD (coronary artery disease) Code(s): I25.10 - ATHSCL HEART DISEASE OF [place] CORONARY ARTERY W/O ANG PCTRS Qualifiers: Coronary Disease-Associated Artery/Lesion type: [place] artery [place] vs. transplanted heart: [place] heart Associated angina: without angina Qualified Code(s): I25.10 - Atherosclerotic heart disease of [place] coronary artery without angina pectoris (5) HTN (hypertension) Code(s): I10 - ESSENTIAL (PRIMARY) HYPERTENSION Qualifiers: Hypertension type: essential hypertension Qualified Code(s): I10 - Essential (primary) hypertension (6) History of percutaneous coronary intervention Code(s): Z98.89 - OTHER SPECIFIED POSTPROCEDURAL STATES * DO NOT USE * (7) Hypercholesterolemia Code(s): E78.0 - PURE HYPERCHOLESTEROLEMIA * DO NOT USE * (8) IDDM (insulin dependent diabetes mellitus) Code(s): E11.9 - TYPE 2 DIABETES MELLITUS WITHOUT COMPLICATIONS; Z79.4 - CUSTODIAL (CURRENT) USE OF INSULIN Assessment/Plan March 15, 2019 Echo: Normal LV size and fxn, mod ADOLFO, mod MR March 14, 2018 Echo: Mild-mod decreased LVEF 40-45%, pacemaker lead, mild MR, TR, pulm HTN 1. Acute hypercapneic respiratory failure 2. Acute on chronic LV diastolic/systolic failure and pulmonary HTN resolving 3. RML consolidation likely ATX 4. CAD s/p PCI/stent, angina pectoris 5. History of syncope s/p [employer] last interrogation 02/08/2019 6. HTN/HCVD 7. Insulin-dependent type 2 diabetes mellitus 8. Hypercholesterolemia 9. CKD 10. Anemia PLAN: 1. Continue oral diuresis with monitor diuretic response, renal function and electrolytes 2. Continue Carvedilol 12.5 bid, Norvasc 5 qd, Lipitor 10 qhs, Plavix 75 qd, resumed valsartan 40 qd as renal fxn stable, d/c ASA 81 qd given stable CAD 3. DVT and GI prophylaxis 4. OOB to chair and ambulate as tolerated 5. BD, O2 as needed, possible flex bronchoscopy to r/o endobronchial pathology as outpatient
[2019-03-17] MEDS: PANTOPRAZOLE 40 MG TABLET (FP) PO SCH (10:59)
[2019-03-17] MEDS: CLOPIDOGREL BISULFATE 75 MG TABLET (FP) PO SCH (10:59)
[2019-03-17] MEDS: FUROSEMIDE 40 MG TABLET (FP) PO SCH (10:59)
[2019-03-17] MEDS: guaiFENesin/CODEINE 5 ML UNIT-DOSE CUPS PO PRN (10:59)
[2019-03-17] MEDS: CEFTRIAXONE 1 GM in DEXTROSE 5%-WATER - 50 ML IVPB SCH (11:00)
[2019-03-17] MEDS: CARVEDILOL 6.25 MG TABLET (FP) PO SCH ×2 (11:00→21:53)
[2019-03-17] MEDS: CHOLECALCIFEROL (VITAMIN D3) 1,000 UNIT TABLET (FP) PO SCH (11:00)
[2019-03-17] MEDS: ALLOPURINOL 100 MG TABLET (FP) PO SCH (11:00)
[2019-03-17] MEDS: GABAPENTIN 300 MG CAPSULE (FP) PO SCH (11:00)
[2019-03-17] MEDS: amLODIPine BESYLATE 5 MG TABLET (FP) PO SCH (11:00)
--- NOTE | 2019-03-17 11:45 | PN ---
Progress Note, Physician History of Present Illness: PULMONARY ALERT ,FEELING BETTER,DYSPNEA IMPROVING,LESS COUGH - Current Medication List Current Medications: Active Medications Albuterol/Ipratropium (Duoneb -) 1 amp NEB RTID [facility] Last Admin: 03/16/19 21:05 Dose: 1 amp Allopurinol (Zyloprim -) 100 mg PO DAILY [facility] Last Admin: 03/17/19 11:00 Dose: 100 mg Amlodipine Besylate (Norvasc -) 5 mg PO DAILY [facility] Last Admin: 03/17/19 11:00 Dose: 5 mg Atorvastatin Calcium (Lipitor -) 10 mg PO HS [facility] Last Admin: 03/16/19 21:38 Dose: 10 mg Carvedilol (Coreg -) 12.5 mg PO BID [facility] Last Admin: 03/17/19 11:00 Dose: 12.5 mg Cholecalciferol (Vitamin D3 -) 1,000 unit PO DAILY [facility] Last Admin: 03/17/19 11:00 Dose: 1,000 unit Clopidogrel Bisulfate (Plavix -) 75 mg PO DAILY [facility] Last Admin: 03/17/19 10:59 Dose: 75 mg Furosemide (Lasix -) 40 mg PO DAILY [facility] Last Admin: 03/17/19 10:59 Dose: 40 mg Gabapentin (Neurontin -) 300 mg PO DAILY [facility] Last Admin: 03/17/19 11:00 Dose: 300 mg Guaifenesin/Codeine Phosphate (Robitussin Ac -) 5 ml PO QID PRN PRN Reason: COUGH Last Admin: 03/17/19 10:59 Dose: 5 ml Heparin Sodium (Porcine) (Heparin -) 5,000 unit SQ TID [facility] Last Admin: 03/17/19 06:33 Dose: 5,000 unit Ceftriaxone Sodium 1 gm/ (Dextrose) 50 mls @ 100 mls/hr IVPB DAILY [facility] Last Admin: 03/17/19 11:00 Dose: 100 mls/hr Insulin Aspart (Novolog Vial Sliding Scale -) 1 vial SQ ACHS [facility]; Protocol Last Admin: 03/17/19 06:33 Dose: 6 units Insulin Detemir (Levemir Vial) 22 units SQ DAILY@2200 [facility] Last Admin: 03/16/19 21:37 Dose: 22 units Insulin Detemir (Levemir Vial) 24 units SQ DAILY@0700 [facility] Last Admin: 03/17/19 06:33 Dose: 24 units Pantoprazole Sodium (Protonix -) 40 mg PO DAILY [facility] Last Admin: 03/17/19 10:59 Dose: 40 mg Valsartan (Diovan -) 40 mg PO DAILY [facility] - Objective Vital Signs: Vital Signs Temperature 98.2 F 03/17/19 06:00 Pulse Rate 68 03/17/19 06:00 Respiratory Rate 20 03/17/19 06:00 Blood Pressure 120/58 L 03/17/19 06:00 O2 Sat by Pulse Oximetry (%) 98 03/16/19 21:00 Constitutional: Yes: Well Nourished, Calm Eyes: Yes: WNL HENT: Yes: WNL Neck: Yes: WNL Cardiovascular: Yes: Regular Rate and Rhythm, S1, S2 Respiratory: Yes: Diminished Gastrointestinal: Yes: Normal Bowel Sounds, Soft Extremities: Yes: WNL Edema: Yes Labs: CBC, BMP 03/16/19 05:30 Problem List - Problems (1) Acute respiratory failure with hypercapnia Code(s): J96.02 - ACUTE RESPIRATORY FAILURE WITH HYPERCAPNIA (2) Acute CHF Code(s): I50.9 - HEART FAILURE, UNSPECIFIED Qualifiers: Heart failure type: combined systolic and diastolic Qualified Code(s): I50.41 - Acute combined systolic (congestive) and diastolic (congestive) heart failure (3) Shortness of breath Code(s): R06.02 - SHORTNESS OF BREATH (4) Acute metabolic encephalopathy Code(s): G93.41 - METABOLIC ENCEPHALOPATHY (5) Acute renal failure (ARF) Code(s): N17.9 - ACUTE KIDNEY FAILURE, UNSPECIFIED Qualifiers: Acute renal failure type: unspecified Qualified Code(s): N17.9 - Acute kidney failure, unspecified (6) Anemia Code(s): D64.9 - ANEMIA, UNSPECIFIED Qualifiers: Anemia type: due to chronic kidney disease (7) Biventricular ICD (implantable cardioverter-defibrillator) in place Code(s): Z95.810 - PRESENCE OF AUTOMATIC (IMPLANTABLE) CARDIAC DEFIBRILLATOR (8) CAD (coronary artery disease) Code(s): I25.10 - ATHSCL HEART DISEASE OF [place] CORONARY ARTERY W/O ANG PCTRS Qualifiers: Coronary Disease-Associated Artery/Lesion type: [place] artery [place] vs. transplanted heart: [place] heart Associated angina: without angina Qualified Code(s): I25.10 - Atherosclerotic heart disease of [place] coronary artery without angina pectoris (9) CHF (congestive heart failure) Code(s): I50.9 - HEART FAILURE, UNSPECIFIED Qualifiers: Heart failure type: combined systolic and diastolic Heart failure chronicity: acute on chronic Qualified Code(s): I50.43 - Acute on chronic combined systolic (congestive) and diastolic (congestive) heart failure (10) Fall Code(s): W19.XXXA - UNSPECIFIED FALL, INITIAL ENCOUNTER Qualifiers: Encounter type: subsequent encounter Qualified Code(s): W19.XXXD - Unspecified fall, subsequent encounter (11) IDDM (insulin dependent diabetes mellitus) Code(s): E11.9 - TYPE 2 DIABETES MELLITUS WITHOUT COMPLICATIONS; Z79.4 - [employer] (CURRENT) USE OF INSULIN (12) Pulmonary edema Code(s): J81.1 - CHRONIC PULMONARY EDEMA Qualifiers: Chronicity: acute Qualified Code(s): J81.0 - Acute pulmonary edema (13) Renal insufficiency Code(s): N28.9 - DISORDER OF KIDNEY AND URETER, UNSPECIFIED (14) SOB (shortness of breath) on exertion Code(s): R06.02 - SHORTNESS OF BREATH (15) Atelectasis Code(s): J98.11 - ATELECTASIS Assessment/Plan A/P Acute Hypercapneic Respiratory Failure improving Acute on Chronic Systolic/Diastolic Heart Failure improving Pulmonary HTN RML Atelectasis CAD HTN CKD Anemia - lasix - monitor urine output, creatinine - inhaled bronchodilators - O2 to keep SpO2 >90% - on empiric antibiotics - CT findings stable, can perform bronchoscopy as outpt DR TITUS
--- NOTE | 2019-03-17 12:18 | PN ---
Progress Note, LEAD [employer]OR - Note Progress Note: Selected Entries 03/16/19 03/16/19 03/16/19 02:00 05:48 09:25 Breakfast Supper Temperature 98.5 F 97.7 F 97.6 F 03/16/19 03/16/19 03/16/19 09:38 14:00 18:00 Breakfast 100% Supper Temperature 98.4 F 98.8 F 03/16/19 03/16/19 03/17/19 20:23 22:00 02:00 Breakfast Supper 100% Temperature 98.6 F 98 F 03/17/19 06:00 Breakfast Supper Temperature 98.2 F Tolerated breakfast well without reported difficulty. Feeling better
--- NOTE | 2019-03-17 20:31 | PN ---
Progress Note (short form) - Note Progress Note: Pt seen/ examined earlier today feels better alert/ awake Vital Signs Temp 98.0 F 03/17/19 18:00 Pulse 82 03/17/19 18:00 Resp 18 03/17/19 18:00 BP 160/72 03/17/19 18:00 Pulse Ox 95 03/17/19 09:00 Intake & Output 03/16/19 03/17/19 03/17/19 23:59 11:59 23:59 Intake Total 1080 480 Output Total 1075 250 200 Balance 5 -250 280 Weight 240 lb 9.6 oz Intake: Oral 1080 480 Output: Urine 1075 250 200 Andrade 1075 250 200 Other: Voiding Method Indwelling Catheter Indwelling Catheter Indwelling Catheter Bowel Movement Yes Weight Measurement Method Standing Scale Active Medications Albuterol/Ipratropium (Duoneb -) 1 amp NEB RTID [facility] Last Admin: 03/17/19 14:45 Dose: 1 amp Allopurinol (Zyloprim -) 100 mg PO DAILY [facility] Last Admin: 03/17/19 11:00 Dose: 100 mg Amlodipine Besylate (Norvasc -) 5 mg PO DAILY [facility] Last Admin: 03/17/19 11:00 Dose: 5 mg Atorvastatin Calcium (Lipitor -) 10 mg PO HS [facility] Last Admin: 03/16/19 21:38 Dose: 10 mg Carvedilol (Coreg -) 12.5 mg PO BID [facility] Last Admin: 03/17/19 11:00 Dose: 12.5 mg Cholecalciferol (Vitamin D3 -) 1,000 unit PO DAILY [facility] Last Admin: 03/17/19 11:00 Dose: 1,000 unit Clopidogrel Bisulfate (Plavix -) 75 mg PO DAILY [facility] Last Admin: 03/17/19 10:59 Dose: 75 mg Furosemide (Lasix -) 40 mg PO DAILY [facility] Last Admin: 03/17/19 10:59 Dose: 40 mg Gabapentin (Neurontin -) 300 mg PO DAILY [facility] Last Admin: 03/17/19 11:00 Dose: 300 mg Guaifenesin/Codeine Phosphate (Robitussin Ac -) 5 ml PO QID PRN PRN Reason: COUGH Last Admin: 03/17/19 10:59 Dose: 5 ml Heparin Sodium (Porcine) (Heparin -) 5,000 unit SQ TID [facility] Last Admin: 03/17/19 13:18 Dose: 5,000 unit Ceftriaxone Sodium 1 gm/ (Dextrose) 50 mls @ 100 mls/hr IVPB DAILY [facility] Last Admin: 03/17/19 11:00 Dose: 100 mls/hr Insulin Aspart (Novolog Vial Sliding Scale -) 1 vial SQ ACHS [facility]; Protocol Last Admin: 03/17/19 17:35 Dose: 6 units Insulin Detemir (Levemir Vial) 22 units SQ DAILY@2200 [facility] Last Admin: 03/16/19 21:37 Dose: 22 units Insulin Detemir (Levemir Vial) 24 units SQ DAILY@0700 [facility] Last Admin: 03/17/19 06:33 Dose: 24 units Pantoprazole Sodium (Protonix -) 40 mg PO DAILY [facility] Last Admin: 03/17/19 10:59 Dose: 40 mg Valsartan (Diovan -) 40 mg PO DAILY [facility] CBC, BMP 03/16/19 05:30 03/16/19 05:30 Microbiology 03/15/19 17:00 Blood Culture - Preliminary Blood - Peripheral Venous NO GROWTH OBTAINED AFTER 48 HOURS, INCUBATION TO CONTINUE FOR 3 DAYS. 03/15/19 17:00 Blood Culture - Preliminary Blood - Peripheral Venous NO GROWTH OBTAINED AFTER 48 HOURS, INCUBATION TO CONTINUE FOR 3 DAYS. Physical Exam Awake/ comfortable No pallor S1 S2 RRR Lungs decreased Abd- soft, obese, NT edema+ PLAN Better continue present care abx monitor bgm oob- chair Physical therapy will follow Problem List - Problems (1) Acute CHF Code(s): I50.9 - HEART FAILURE, UNSPECIFIED Qualifiers: Heart failure type: combined systolic and diastolic Qualified Code(s): I50.41 - Acute combined systolic (congestive) and diastolic (congestive) heart failure (2) Localized swelling of both lower legs Code(s): R22.43 - LOCALIZED SWELLING, M[place], LOWER LIMB, BILATERAL (3) Acute metabolic encephalopathy Code(s): G93.41 - METABOLIC ENCEPHALOPATHY (4) Acute on chronic renal insufficiency Code(s): N28.9 - DISORDER OF KIDNEY AND URETER, UNSPECIFIED; N18.9 - CHRONIC KIDNEY DISEASE, UNSPECIFIED
[2019-03-17] MEDS: ATORVASTATIN CA 10 MG TABLET (FP) PO SCH (21:53)
[2019-03-18] MEDS: INSULIN SLIDING SCALE (NOVOLOG) 1 VIAL SQ SCH ×4 (06:40→23:01)
[2019-03-18] MEDS: HEPARIN NA (PORCINE) 5,000 UNITS/ML 1ML VIAL SQ SCH ×3 (06:40→23:02)
[2019-03-18] MEDS: INSULIN (LEVEMIR) 100 UNITS/ML UNITS SQ SCH ×2 (06:41→23:01)
[2019-03-18] MEDS: ALBUTEROL SO4 2.5/IPRATROPIUM 0.5 INH SOL 3 ML VIAL.NEB. NEB SCH ×3 (08:00→20:30)
[2019-03-18] MEDS ORDERED: cefTRIAXone SODIUM 1 GM VIAL ONE (08:56)
[2019-03-18] MEDS ORDERED: DEXTROSE 5%-WATER - 50 ML IVPB ONE (08:56)
[2019-03-18] MEDS: CLOPIDOGREL BISULFATE 75 MG TABLET (FP) PO SCH (09:47)
[2019-03-18] MEDS: amLODIPine BESYLATE 5 MG TABLET (FP) PO SCH (09:47)
[2019-03-18] MEDS: CARVEDILOL 6.25 MG TABLET (FP) PO SCH (09:47)
[2019-03-18] MEDS: ALLOPURINOL 100 MG TABLET (FP) PO SCH (09:47)
[2019-03-18] MEDS: PANTOPRAZOLE 40 MG TABLET (FP) PO SCH (09:47)
[2019-03-18] MEDS: GABAPENTIN 300 MG CAPSULE (FP) PO SCH (09:47)
[2019-03-18] MEDS: CHOLECALCIFEROL (VITAMIN D3) 1,000 UNIT TABLET (FP) PO SCH (09:47)
[2019-03-18] MEDS: CEFTRIAXONE 1 GM in DEXTROSE 5%-WATER - 50 ML IVPB SCH (09:47)
[2019-03-18] MEDS: FUROSEMIDE 40 MG TABLET (FP) PO SCH (09:47)
[2019-03-18] MEDS ORDERED: VALSARTAN 40 MG TABLET (FP) PO SCH (10:00)
--- NOTE | 2019-03-18 13:05 | PN ---
Progress Note (short form) - Note Progress Note: PULMONARY Breathing better. Minimal cough. No fevers recorded. Vital Signs Period Temp Pulse Resp BP Sys/Etienne Pulse Ox Last 24 Hr 97.8 F-98.4 F 67-82 18-20 110-160/52-72 96-98 Gen: NAD at rest Heart: RRR Lung: decreased breath sounds at the bases Abd: soft, nontender Ext: no edema CBC, BMP 03/16/19 05:30 03/16/19 05:30 Active Medications Albuterol/Ipratropium (Duoneb -) 1 amp NEB RTID [facility] Last Admin: 03/18/19 08:00 Dose: 1 amp Allopurinol (Zyloprim -) 100 mg PO DAILY [facility] Last Admin: 03/18/19 09:47 Dose: 100 mg Amlodipine Besylate (Norvasc -) 5 mg PO DAILY [facility] Last Admin: 03/18/19 09:47 Dose: 5 mg Atorvastatin Calcium (Lipitor -) 10 mg PO HS [facility] Last Admin: 03/17/19 21:53 Dose: 10 mg Carvedilol (Coreg -) 12.5 mg PO BID [facility] Last Admin: 03/18/19 09:47 Dose: 12.5 mg Cholecalciferol (Vitamin D3 -) 1,000 unit PO DAILY [facility] Last Admin: 03/18/19 09:47 Dose: 1,000 unit Clopidogrel Bisulfate (Plavix -) 75 mg PO DAILY [facility] Last Admin: 03/18/19 09:47 Dose: 75 mg Furosemide (Lasix -) 40 mg PO DAILY [facility] Last Admin: 03/18/19 09:47 Dose: 40 mg Gabapentin (Neurontin -) 300 mg PO DAILY [facility] Last Admin: 03/18/19 09:47 Dose: 300 mg Guaifenesin/Codeine Phosphate (Robitussin Ac -) 5 ml PO QID PRN PRN Reason: COUGH Last Admin: 03/17/19 10:59 Dose: 5 ml Heparin Sodium (Porcine) (Heparin -) 5,000 unit SQ TID [facility] Last Admin: 03/18/19 06:40 Dose: 5,000 unit Ceftriaxone Sodium 1 gm/ (Dextrose) 50 mls @ 100 mls/hr IVPB DAILY [facility] Last Admin: 03/18/19 09:47 Dose: 100 mls/hr Insulin Aspart (Novolog Vial Sliding Scale -) 1 vial SQ ACHS [facility]; Protocol Last Admin: 03/18/19 11:35 Dose: 2 units Insulin Detemir (Levemir Vial) 22 units SQ DAILY@2200 [facility] Last Admin: 03/17/19 21:56 Dose: 22 units Insulin Detemir (Levemir Vial) 24 units SQ DAILY@0700 [facility] Last Admin: 03/18/19 06:41 Dose: 24 units Pantoprazole Sodium (Protonix -) 40 mg PO DAILY [facility] Last Admin: 03/18/19 09:47 Dose: 40 mg Valsartan (Diovan -) 40 mg PO DAILY [facility] Last Admin: 03/18/19 09:47 Dose: 40 mg A/P Acute Hypercapneic Respiratory Failure improving Acute on Chronic Systolic/Diastolic Heart Failure Pulmonary HTN RML Atelectasis CAD HTN CKD Anemia - continue lasix - monitor urine output, creatinine - inhaled bronchodilators - O2 to keep SpO2 >90% - on empiric antibiotics - f/u cultures - CT findings stable, can perform bronchoscopy as outpt
[2019-03-18] MEDS: guaiFENesin/CODEINE 5 ML UNIT-DOSE CUPS PO PRN (13:37)
--- NOTE | 2019-03-18 14:07 | PN ---
Progress Note (short form) - Note Progress Note: Altered mental status improved recognized me no SOB No distress coughing+ teary eyes no erythema in eyes Vital Signs - 24 hr 03/17/19 03/17/19 03/17/19 18:00 21:00 22:00 Temperature 98.0 F 97.8 F Pulse Rate 82 79 Respiratory 18 20 20 Rate Blood Pressure 160/72 118/55 L O2 Sat by Pulse 96 Oximetry (%) 03/18/19 03/18/19 03/18/19 02:04 06:00 09:00 Temperature 98.4 F 97.8 F Pulse Rate 71 71 Respiratory 20 20 20 Rate Blood Pressure 110/52 L 115/61 O2 Sat by Pulse 98 Oximetry (%) 03/18/19 09:43 Temperature 98.0 F Pulse Rate 74 Respiratory 20 Rate Blood Pressure 134/63 O2 Sat by Pulse Oximetry (%) Current Medications Generic Name Dose Route Start Last Admin Trade Name Freq PRN Reason Stop Dose Admin Albuterol/Ipratropium 1 amp 03/16/19 20:00 03/18/19 08:00 Duoneb - NEB 1 amp RTID [facility] Administration Allopurinol 100 mg 03/17/19 10:00 03/18/19 09:47 Zyloprim - PO 100 mg DAILY [facility] Administration Amlodipine Besylate 5 mg 03/17/19 10:00 03/18/19 09:47 Norvasc - PO 5 mg DAILY [facility] Administration Atorvastatin Calcium 10 mg 03/16/19 22:00 03/17/19 21:53 Lipitor - PO 10 mg HS [facility] Administration Carvedilol 12.5 mg 03/16/19 22:00 03/18/19 09:47 Coreg - PO 12.5 mg BID [facility] Administration Cholecalciferol 1,000 unit 03/17/19 10:00 03/18/19 09:47 Vitamin D3 - PO 1,000 unit DAILY [facility] Administration Clopidogrel Bisulfate 75 mg 03/17/19 10:00 03/18/19 09:47 Plavix - PO 75 mg DAILY [facility] Administration Fluticasone Propionate 2 spray 03/18/19 14:15 Flonase - NS DAILY [facility] Furosemide 40 mg 03/17/19 10:00 03/18/19 09:47 Lasix - PO 40 mg DAILY [facility] Administration Gabapentin 300 mg 03/17/19 10:00 03/18/19 09:47 Neurontin - PO 300 mg DAILY [facility] Administration Guaifenesin/Codeine Phosphate 5 ml 03/16/19 16:03 03/18/19 13:37 Robitussin Ac - PO 5 ml QID PRN Administration COUGH Heparin Sodium (Porcine) 5,000 unit 03/16/19 22:00 03/18/19 13:36 Heparin - SQ 5,000 unit TID [facility] Administration Ceftriaxone Sodium 1 gm/ 50 mls @ 100 mls/hr 03/17/19 10:00 03/18/19 09:47 Dextrose IVPB 100 mls/hr DAILY [facility] Administration Insulin Aspart 1 vial 03/16/19 16:30 03/18/19 11:35 Novolog Vial Sliding Scale - SQ 2 units ACHS [facility] Administration Protocol Insulin Detemir 22 units 03/16/19 22:00 03/17/19 21:56 Levemir Vial SQ 22 units DAILY@2200 [facility] Administration Insulin Detemir 24 units 03/17/19 07:00 03/18/19 06:41 Levemir Vial SQ 24 units DAILY@0700 [facility] Administration Pantoprazole Sodium 40 mg 03/17/19 10:00 03/18/19 09:47 Protonix - PO 40 mg DAILY [facility] Administration Valsartan 40 mg 03/18/19 10:00 03/18/19 09:47 Diovan - PO 40 mg DAILY [facility] Administration Laboratory Results - last 24 hr 03/17/19 03/17/19 03/18/19 16:50 21:53 06:00 POC Glucometer 258 286 139 03/18/19 11:33 POC Glucometer 160 No pallor S1 S2 RRR Lungs decreased Abd- soft, obese, NT edema+ PLAN CT chest , Head ct noted Pulmonary eval for persistent opacity/consolidation seen on CT Chest -- appreciated -- dc steroids Cardiology eval noted Check urine and blood cultures--negative on Lasix po Follow up of renal function continue meds may transfer to [facility] continue with antibiotics Problem List - Problems (1) Acute CHF Code(s): I50.9 - HEART FAILURE, UNSPECIFIED Qualifiers: Heart failure type: combined systolic and diastolic Qualified Code(s): I50.41 - Acute combined systolic (congestive) and diastolic (congestive) heart failure (2) Localized swelling of both lower legs Code(s): R22.43 - LOCALIZED SWELLING, [place], LOWER LIMB, BILATERAL (3) Acute metabolic encephalopathy Code(s): G93.41 - METABOLIC ENCEPHALOPATHY (4) Acute on chronic renal insufficiency Code(s): N28.9 - DISORDER OF KIDNEY AND URETER, UNSPECIFIED; N18.9 - CHRONIC KIDNEY DISEASE, UNSPECIFIED
[2019-03-18] MEDS ORDERED: FLUTICASONE PROP 0.05% 16 GM NASAL SPRAY NS SCH (14:15)
--- NOTE | 2019-03-18 14:59 | PN ---
Progress Note, Physician Chief Complaint: Pt A&Ox3; sitting up at bedside; asymptomatic. History of Present Illness: 73 black woman (B. Blanco) with h/o diastolic CHF, CKD, HLD, HTN, DM, CAD, stents and PPM 2008, morbid obesity,and chronic venous insufficiency who presents to the ED for evaluation of a 3 day history of SOB. Pt endorses worsening dyspnea and lower extremity edema bilaterally. Denies F/C. Denies CP. Endorses orthopnea. - - Current Medication List Current Medications: Active Medications Albuterol/Ipratropium (Duoneb -) 1 amp NEB RTID [facility] Last Admin: 03/18/19 08:00 Dose: 1 amp Allopurinol (Zyloprim -) 100 mg PO DAILY [facility] Last Admin: 03/18/19 09:47 Dose: 100 mg Amlodipine Besylate (Norvasc -) 5 mg PO DAILY [facility] Last Admin: 03/18/19 09:47 Dose: 5 mg Atorvastatin Calcium (Lipitor -) 10 mg PO HS [facility] Last Admin: 03/17/19 21:53 Dose: 10 mg Carvedilol (Coreg -) 12.5 mg PO BID [facility] Last Admin: 03/18/19 09:47 Dose: 12.5 mg Cholecalciferol (Vitamin D3 -) 1,000 unit PO DAILY [facility] Last Admin: 03/18/19 09:47 Dose: 1,000 unit Clopidogrel Bisulfate (Plavix -) 75 mg PO DAILY [facility] Last Admin: 03/18/19 09:47 Dose: 75 mg Fluticasone Propionate (Flonase -) 2 spray NS DAILY [facility] Furosemide (Lasix -) 40 mg PO DAILY [facility] Last Admin: 03/18/19 09:47 Dose: 40 mg Gabapentin (Neurontin -) 300 mg PO DAILY [facility] Last Admin: 03/18/19 09:47 Dose: 300 mg Guaifenesin/Codeine Phosphate (Robitussin Ac -) 5 ml PO QID PRN PRN Reason: COUGH Last Admin: 03/18/19 13:37 Dose: 5 ml Heparin Sodium (Porcine) (Heparin -) 5,000 unit SQ TID [facility] Last Admin: 03/18/19 13:36 Dose: 5,000 unit Ceftriaxone Sodium 1 gm/ (Dextrose) 50 mls @ 100 mls/hr IVPB DAILY [facility] Last Admin: 03/18/19 09:47 Dose: 100 mls/hr Insulin Aspart (Novolog Vial Sliding Scale -) 1 vial SQ ACHS [facility]; Protocol Last Admin: 03/18/19 11:35 Dose: 2 units Insulin Detemir (Levemir Vial) 22 units SQ DAILY@2200 [facility] Last Admin: 03/17/19 21:56 Dose: 22 units Insulin Detemir (Levemir Vial) 24 units SQ DAILY@0700 [facility] Last Admin: 03/18/19 06:41 Dose: 24 units Pantoprazole Sodium (Protonix -) 40 mg PO DAILY [facility] Last Admin: 03/18/19 09:47 Dose: 40 mg Valsartan (Diovan -) 40 mg PO DAILY [facility] Last Admin: 03/18/19 09:47 Dose: 40 mg - Objective Vital Signs: Vital Signs Temperature 98.0 F 03/18/19 09:43 Pulse Rate 74 03/18/19 09:43 Respiratory Rate 20 03/18/19 09:43 Blood Pressure 134/63 03/18/19 09:43 O2 Sat by Pulse Oximetry (%) 98 03/18/19 09:00 Constitutional: Yes: Calm, Obese Eyes: Yes: WNL HENT: Yes: WNL Cardiovascular: Yes: S2 (split) Gastrointestinal: Yes: Soft, Abdomen, Obese ...Rectal Exam: Yes: Deferred Genitourinary: No: Anuria Breast(s): Yes: WNL Musculoskeletal: Yes: Joint Stiffness, Muscle Weakness Extremities: Yes: Cool Edema: Yes Edema: LLE: 1+ (nonpitting), RLE: 1+ Peripheral Pulses WNL: No Peripheral Pulses: Left Doralis Pedis: 1+, Right Dorsalis Pedis: 1+ Integumentary: Yes: Venous Stasis Changes, Other (right ankle hyperpigmented) Neurological: Yes: Alert, Oriented Psychiatric: Yes: WNL Labs: CBC, BMP 03/16/19 05:30 03/16/19 05:30 INR, PTT INR 1.13 (0.83-1.09) H 03/15/19 05:20 - ....Imaging Chest X-ray: Image Reviewed Cat Scan: Image Reviewed EKG: Image Reviewed (ventricular pacing) Problem List - Problems (1) Peripheral vascular disease Code(s): I73.9 - PERIPHERAL VASCULAR DISEASE, UNSPECIFIED (2) Diastolic CHF Code(s): I50.30 - UNSPECIFIED DIASTOLIC (CONGESTIVE) HEART FAILURE (3) Hyperlipidemia Assessment/Plan: On atorvastatin; keep LDL cholesterol < 70 mg/dl. Code(s): E78.5 - HYPERLIPIDEMIA, UNSPECIFIED (4) HTN (hypertension) Assessment/Plan: on amlodipine, valsartan. D/c furosemide (not in acute CHF; rising BUN/Cr). Code(s): I10 - ESSENTIAL (PRIMARY) HYPERTENSION Qualifiers: Hypertension type: essential hypertension Qualified Code(s): I10 - Essential (primary) hypertension (5) Diabetes Code(s): E11.9 - TYPE 2 DIABETES MELLITUS WITHOUT COMPLICATIONS (6) Renal dysfunction Assessment/Plan: hold furosemide; f/u BUn/Cr. Code(s): N28.9 - DISORDER OF KIDNEY AND URETER, UNSPECIFIED (7) Presence of permanent cardiac pacemaker Code(s): Z95.0 - PRESENCE OF CARDIAC PACEMAKER
[2019-03-18] MEDS ORDERED: PT OWN MED DRAWER 7, Y5N ONE (18:15)
[2019-03-18] MEDS ORDERED: guaiFENesin/CODEINE 5 ML UNIT-DOSE CUPS PO PRN (18:22)
[2019-03-18] MEDS ORDERED: INSULIN (NOVOLOG) ASPART 100 UNITS/ML 10ML VIAL ONE (21:01)
[2019-03-18] MEDS: ATORVASTATIN CA 10 MG TABLET (FP) PO SCH (23:02)
[2019-03-18] MEDS: CARVEDILOL 12.5 MG TABLET (FP) PO SCH (23:02)
[2019-03-19] MEDS: INSULIN (LEVEMIR) 100 UNITS/ML UNITS SQ SCH ×2 (07:00→21:58)
[2019-03-19] MEDS: INSULIN SLIDING SCALE (NOVOLOG) 1 VIAL SQ SCH ×4 (07:00→21:59)
[2019-03-19] MEDS: HEPARIN NA (PORCINE) 5,000 UNITS/ML 1ML VIAL SQ SCH ×3 (07:00→21:57)
[2019-03-19] MEDS: ALBUTEROL SO4 2.5/IPRATROPIUM 0.5 INH SOL 3 ML VIAL.NEB. NEB SCH ×3 (07:57→21:15)
[2019-03-19] MEDS ORDERED: DEXTROSE 5%-WATER - 50 ML IVPB ONE (09:37)
[2019-03-19] MEDS ORDERED: cefTRIAXone SODIUM 1 GM VIAL ONE (09:37)
[2019-03-19] MEDS ORDERED: PT OWN MED DRAWER 7, Y5N ONE (09:37)
[2019-03-19] MEDS: amLODIPine BESYLATE 5 MG TABLET (FP) PO SCH (09:49)
[2019-03-19] MEDS: CARVEDILOL 12.5 MG TABLET (FP) PO SCH ×2 (09:49→21:57)
[2019-03-19] MEDS: PANTOPRAZOLE 40 MG TABLET (FP) PO SCH (09:49)
[2019-03-19] MEDS: CHOLECALCIFEROL (VITAMIN D3) 1,000 UNIT TABLET (FP) PO SCH (09:50)
[2019-03-19] MEDS: CEFTRIAXONE 1 GM in DEXTROSE 5%-WATER - 50 ML IVPB SCH (09:50)
[2019-03-19] MEDS: ALLOPURINOL 100 MG TABLET (FP) PO SCH (09:50)
[2019-03-19] MEDS: CLOPIDOGREL BISULFATE 75 MG TABLET (FP) PO SCH (09:50)
[2019-03-19] MEDS: GABAPENTIN 300 MG CAPSULE (FP) PO SCH (09:50)
--- NOTE | 2019-03-19 10:35 | PN ---
Progress Note (short form) - Note Progress Note: clinically better no SOB No distress coughing+ teary eyes no erythema in eyes Vital Signs - 24 hr 03/18/19 03/18/19 03/18/19 17:41 17:47 21:00 Temperature 99 F Pulse Rate 76 Respiratory 20 20 Rate Blood Pressure 125/62 O2 Sat by Pulse 97 97 Oximetry (%) 03/18/19 03/19/19 03/19/19 22:00 01:00 06:00 Temperature 97.4 F L 98.1 F Pulse Rate 72 73 Respiratory 20 20 20 Rate Blood Pressure 129/57 L 144/67 135/73 O2 Sat by Pulse Oximetry (%) 03/19/19 03/19/19 03/19/19 09:00 10:00 14:00 Temperature 98.2 F 98.2 F Pulse Rate 83 83 Respiratory 20 20 20 Rate Blood Pressure 114/64 114/64 O2 Sat by Pulse 99 Oximetry (%) 03/19/19 14:45 Temperature 97.7 F Pulse Rate 71 Respiratory 18 Rate Blood Pressure 121/57 L O2 Sat by Pulse Oximetry (%) Current Medications Generic Name Dose Route Start Last Admin Trade Name Freq PRN Reason Stop Dose Admin Albuterol/Ipratropium 1 amp 03/18/19 20:00 03/19/19 14:40 Duoneb - NEB 1 amp RTID MARTIN Administration Allopurinol 100 mg 03/19/19 10:00 03/19/19 09:50 Zyloprim - PO 100 mg DAILY MARTIN Administration Amlodipine Besylate 5 mg 03/19/19 10:00 03/19/19 09:49 Norvasc - PO 5 mg DAILY MARTIN Administration Atorvastatin Calcium 10 mg 03/18/19 22:00 03/18/19 23:02 Lipitor - PO 10 mg HS MARTIN Administration Carvedilol 12.5 mg 03/18/19 22:00 03/19/19 09:49 Coreg - PO 12.5 mg BID MARTIN Administration Cholecalciferol 1,000 unit 03/19/19 10:00 03/19/19 09:50 Vitamin D3 - PO 1,000 unit DAILY [facility]IN Administration Clopidogrel Bisulfate 75 mg 03/19/19 10:00 03/19/19 09:50 Plavix - PO 75 mg DAILY [facility]IN Administration Fluticasone Propionate 2 spray 03/19/19 10:00 03/19/19 10:55 Flonase - NS 2 spray DAILY [facility]IN Administration Gabapentin 300 mg 03/19/19 10:00 03/19/19 09:50 Neurontin - PO 300 mg DAILY [facility]IN Administration Guaifenesin/Codeine Phosphate 5 ml 03/18/19 18:22 03/18/19 23:11 Robitussin Ac - PO 5 ml Q6H PRN Administration COUGH Heparin Sodium (Porcine) 5,000 unit 03/18/19 22:00 03/19/19 13:23 Heparin - SQ 5,000 unit TID MARTIN Administration Ceftriaxone Sodium 1 gm/ 50 mls @ 100 mls/hr 03/19/19 10:00 03/19/19 09:50 Dextrose IVPB 100 mls/hr DAILY [facility]IN Administration Insulin Aspart 1 vial 03/18/19 22:00 03/19/19 11:16 Novolog Vial Sliding Scale - SQ 4 unit ACHS MARTIN Administration Protocol Insulin Detemir 22 units 03/18/19 22:00 03/18/19 23:01 Levemir Vial SQ 22 unit DAILY@2200 [facility]IN Administration Insulin Detemir 24 units 03/19/19 07:00 03/19/19 07:00 Levemir Vial SQ 24 unit DAILY@0700 [facility]IN Administration Pantoprazole Sodium 40 mg 03/19/19 10:00 03/19/19 09:49 Protonix - PO 40 mg DAILY [facility] Administration Valsartan 40 mg 03/19/19 10:00 03/19/19 10:55 Diovan - PO 40 mg DAILY [facility] Administration Laboratory Results - last 24 hr 03/18/19 03/18/19 03/19/19 16:23 22:54 06:41 POC Glucometer 173 237 174 03/19/19 11:53 POC Glucometer 227 No pallor S1 S2 RRR Lungs decreased Abd- soft, obese, NT edema+ PLAN CT chest , Head ct noted Pulmonary eval for persistent opacity/consolidation seen on CT Chest -- appreciated-->bronchocopy as outpt -- dc steroids -- dc antibiotics in AM dc dixon today on Lasix po Follow up of renal function continue meds dc planning for AM Problem List - Problems (1) Acute CHF Code(s): I50.9 - HEART FAILURE, UNSPECIFIED Qualifiers: Heart failure type: combined systolic and diastolic Qualified Code(s): I50.41 - Acute combined systolic (congestive) and diastolic (congestive) heart failure (2) Localized swelling of both lower legs Code(s): R22.43 - LOCALIZED SWELLING, MASS AND LUMP, LOWER LIMB, BILATERAL (3) Acute metabolic encephalopathy Code(s): G93.41 - METABOLIC ENCEPHALOPATHY (4) Acute on chronic renal insufficiency Code(s): N28.9 - DISORDER OF KIDNEY AND URETER, UNSPECIFIED; N18.9 - CHRONIC KIDNEY DISEASE, UNSPECIFIED
[2019-03-19] MEDS: VALSARTAN 40 MG TABLET (FP) PO SCH (10:55)
[2019-03-19] MEDS: FLUTICASONE PROP 0.05% 16 GM NASAL SPRAY NS SCH (10:55)
--- NOTE | 2019-03-19 12:03 | PN ---
Progress Note (short form) - Note Progress Note: PULMONARY Breathing continues to improve. Minimal cough. No fevers recorded. Vital Signs Period Temp Pulse Resp BP Sys/Etienne Pulse Ox Last 24 Hr 97.4 F-99 F 72-76 18-20 125-144/57-73 97-97 Gen: NAD at rest Heart: RRR Lung: decreased breath sounds at the bases Abd: soft, nontender Ext: no edema CBC, BMP 03/16/19 05:30 03/16/19 05:30 Active Medications Albuterol/Ipratropium (Duoneb -) 1 amp NEB RTID [facility] Last Admin: 03/19/19 07:57 Dose: 1 amp Allopurinol (Zyloprim -) 100 mg PO DAILY [facility] Last Admin: 03/19/19 09:50 Dose: 100 mg Amlodipine Besylate (Norvasc -) 5 mg PO DAILY [facility] Last Admin: 03/19/19 09:49 Dose: 5 mg Atorvastatin Calcium (Lipitor -) 10 mg PO HS [facility] Last Admin: 03/18/19 23:02 Dose: 10 mg Carvedilol (Coreg -) 12.5 mg PO BID [facility] Last Admin: 03/19/19 09:49 Dose: 12.5 mg Cholecalciferol (Vitamin D3 -) 1,000 unit PO DAILY [facility] Last Admin: 03/19/19 09:50 Dose: 1,000 unit Clopidogrel Bisulfate (Plavix -) 75 mg PO DAILY [facility] Last Admin: 03/19/19 09:50 Dose: 75 mg Fluticasone Propionate (Flonase -) 2 spray NS DAILY [facility] Gabapentin (Neurontin -) 300 mg PO DAILY [facility] Last Admin: 03/19/19 09:50 Dose: 300 mg Guaifenesin/Codeine Phosphate (Robitussin Ac -) 5 ml PO Q6H PRN PRN Reason: COUGH Last Admin: 03/18/19 23:11 Dose: 5 ml Heparin Sodium (Porcine) (Heparin -) 5,000 unit SQ TID [facility] Last Admin: 03/19/19 07:00 Dose: 5,000 unit Ceftriaxone Sodium 1 gm/ (Dextrose) 50 mls @ 100 mls/hr IVPB DAILY [facility] Last Admin: 03/19/19 09:50 Dose: 100 mls/hr Insulin Aspart (Novolog Vial Sliding Scale -) 1 vial SQ ACHS [facility]; Protocol Last Admin: 03/19/19 07:00 Dose: 2 unit Insulin Detemir (Levemir Vial) 22 units SQ DAILY@2200 [facility] Last Admin: 03/18/19 23:01 Dose: 22 unit Insulin Detemir (Levemir Vial) 24 units SQ DAILY@0700 [facility] Last Admin: 03/19/19 07:00 Dose: 24 unit Pantoprazole Sodium (Protonix -) 40 mg PO DAILY [facility] Last Admin: 03/19/19 09:49 Dose: 40 mg Valsartan (Diovan -) 40 mg PO DAILY [facility] Last Admin: 03/19/19 10:55 Dose: 40 mg A/P Acute Hypercapneic Respiratory Failure improving Acute on Chronic Systolic/Diastolic Heart Failure Pulmonary HTN RML Atelectasis CAD HTN CKD Anemia - lasix as needed - monitor urine output, creatinine - inhaled bronchodilators - O2 to keep SpO2 >90% - on empiric antibiotics - f/u cultures - CT findings stable, can perform bronchoscopy as outpt
--- NOTE | 2019-03-19 15:59 | PN ---
Progress Note, Physician History of Present Illness: 73 black woman (James Simeon) with h/o diastolic CHF, CKD, HLD, HTN, DM, CAD, stents and PPM 2008, morbid obesity,and chronic venous insufficiency who presents to the ED for evaluation of a 3 day history of SOB. Pt endorses worsening dyspnea and lower extremity edema bilaterally. Denies F/C. Denies CP. Endorses orthopnea. - - Current Medication List Current Medications: Active Medications Albuterol/Ipratropium (Duoneb -) 1 amp NEB RTID [facility] Last Admin: 03/19/19 14:40 Dose: 1 amp Allopurinol (Zyloprim -) 100 mg PO DAILY [facility] Last Admin: 03/19/19 09:50 Dose: 100 mg Amlodipine Besylate (Norvasc -) 5 mg PO DAILY [facility] Last Admin: 03/19/19 09:49 Dose: 5 mg Atorvastatin Calcium (Lipitor -) 10 mg PO HS [facility] Last Admin: 03/18/19 23:02 Dose: 10 mg Carvedilol (Coreg -) 12.5 mg PO BID [facility] Last Admin: 03/19/19 09:49 Dose: 12.5 mg Cholecalciferol (Vitamin D3 -) 1,000 unit PO DAILY [facility] Last Admin: 03/19/19 09:50 Dose: 1,000 unit Clopidogrel Bisulfate (Plavix -) 75 mg PO DAILY [facility] Last Admin: 03/19/19 09:50 Dose: 75 mg Fluticasone Propionate (Flonase -) 2 spray NS DAILY [facility] Last Admin: 03/19/19 10:55 Dose: 2 spray Gabapentin (Neurontin -) 300 mg PO DAILY [facility] Last Admin: 03/19/19 09:50 Dose: 300 mg Guaifenesin/Codeine Phosphate (Robitussin Ac -) 5 ml PO Q6H PRN PRN Reason: COUGH Last Admin: 03/18/19 23:11 Dose: 5 ml Heparin Sodium (Porcine) (Heparin -) 5,000 unit SQ TID [facility] Last Admin: 03/19/19 13:23 Dose: 5,000 unit Ceftriaxone Sodium 1 gm/ (Dextrose) 50 mls @ 100 mls/hr IVPB DAILY [facility] Last Admin: 03/19/19 09:50 Dose: 100 mls/hr Insulin Aspart (Novolog Vial Sliding Scale -) 1 vial SQ ACHS [facility]; Protocol Last Admin: 03/19/19 11:16 Dose: 4 unit Insulin Detemir (Levemir Vial) 22 units SQ DAILY@2200 [facility] Last Admin: 03/18/19 23:01 Dose: 22 unit Insulin Detemir (Levemir Vial) 24 units SQ DAILY@0700 [facility] Last Admin: 03/19/19 07:00 Dose: 24 unit Pantoprazole Sodium (Protonix -) 40 mg PO DAILY [facility] Last Admin: 03/19/19 09:49 Dose: 40 mg Valsartan (Diovan -) 40 mg PO DAILY [facility] Last Admin: 03/19/19 10:55 Dose: 40 mg - Objective Vital Signs: Vital Signs Temperature 97.7 F 03/19/19 14:45 Pulse Rate 71 03/19/19 14:45 Respiratory Rate 18 03/19/19 14:45 Blood Pressure 121/57 L 03/19/19 14:45 O2 Sat by Pulse Oximetry (%) 99 03/19/19 09:00 Constitutional: Yes: Well Nourished Eyes: Yes: WNL HENT: Yes: WNL Neck: Yes: WNL Cardiovascular: Yes: S1, S2, S4 Respiratory: Yes: WNL, Rhonchi (right-sided) Gastrointestinal: Yes: Soft, Abdomen, Obese ...Rectal Exam: Yes: Deferred Genitourinary: No: Anuria Breast(s): Yes: WNL Musculoskeletal: Yes: Muscle Weakness Extremities: Yes: Cool Edema: No Peripheral Pulses WNL: Yes Integumentary: Yes: WNL Neurological: Yes: WNL Psychiatric: Yes: WNL Labs: CBC, BMP 03/16/19 05:30 03/16/19 05:30 INR, PTT INR 1.13 (0.83-1.09) H 03/15/19 05:20 - ....Imaging Cat Scan: Report Reviewed (rightML atelectasis, unchanged) Problem List - Problems (1) Peripheral vascular disease Code(s): I73.9 - PERIPHERAL VASCULAR DISEASE, UNSPECIFIED (2) Diastolic CHF Code(s): I50.30 - UNSPECIFIED DIASTOLIC (CONGESTIVE) HEART FAILURE (3) Hyperlipidemia Assessment/Plan: On atorvastatin; keep LDL cholesterol < 70 mg/dl. Code(s): E78.5 - HYPERLIPIDEMIA, UNSPECIFIED (4) HTN (hypertension) Assessment/Plan: on amlodipine, valsartan. D/iván furosemide (not in acute CHF; rising BUN/Cr). F/u BUN/Cr, BP. Code(s): I10 - ESSENTIAL (PRIMARY) HYPERTENSION Qualifiers: Hypertension type: essential hypertension Qualified Code(s): I10 - Essential (primary) hypertension (5) Diabetes Assessment/Plan: HBA1c 10. On Levemir and Novolog. On ARB. Code(s): E11.9 - TYPE 2 DIABETES MELLITUS WITHOUT COMPLICATIONS (6) Renal dysfunction Assessment/Plan: D/iván furosemide; f/u BUn/Cr. Code(s): N28.9 - DISORDER OF KIDNEY AND URETER, UNSPECIFIED (7) Presence of permanent cardiac pacemaker Code(s): Z95.0 - PRESENCE OF CARDIAC PACEMAKER (8) Sepsis Assessment/Plan: On ceftriaxone. F/u cultures. Code(s): A41.9 - SEPSIS, UNSPECIFIED ORGANISM (9) Gout Assessment/Plan: on allopurinol Code(s): M10.9 - GOUT, UNSPECIFIED (10) Vitamin D deficiency Assessment/Plan: On vitamin D. Code(s): E55.9 - VITAMIN D DEFICIENCY, UNSPECIFIED (11) ICD (implantable cardioverter-defibrillator) in place Code(s): Z95.810 - PRESENCE OF AUTOMATIC (IMPLANTABLE) CARDIAC DEFIBRILLATOR
[2019-03-19] MEDS ORDERED: INSULIN (NOVOLOG) ASPART 100 UNITS/ML 10ML VIAL ONE (21:49)
[2019-03-19] MEDS: ATORVASTATIN CA 10 MG TABLET (FP) PO SCH (21:57)
[2019-03-20] MEDS: HEPARIN NA (PORCINE) 5,000 UNITS/ML 1ML VIAL SQ SCH ×2 (06:20→14:02)
[2019-03-20] MEDS: INSULIN (LEVEMIR) 100 UNITS/ML UNITS SQ SCH (06:21)
[2019-03-20] MEDS: INSULIN SLIDING SCALE (NOVOLOG) 1 VIAL SQ SCH ×2 (06:22→12:14)
[2019-03-20] MEDS: ALBUTEROL SO4 2.5/IPRATROPIUM 0.5 INH SOL 3 ML VIAL.NEB. NEB SCH ×2 (07:50→14:45)
[2019-03-20] MEDS ORDERED: PT OWN MED DRAWER 7, Y5N ONE (10:04)
[2019-03-20] MEDS ORDERED: DEXTROSE 5%-WATER - 50 ML IVPB ONE (10:05)
[2019-03-20] MEDS ORDERED: cefTRIAXone SODIUM 1 GM VIAL ONE (10:05)
[2019-03-20] MEDS: PANTOPRAZOLE 40 MG TABLET (FP) PO SCH (10:21)
[2019-03-20] MEDS: CHOLECALCIFEROL (VITAMIN D3) 1,000 UNIT TABLET (FP) PO SCH (10:21)
[2019-03-20] MEDS: GABAPENTIN 300 MG CAPSULE (FP) PO SCH (10:21)
[2019-03-20] MEDS: CEFTRIAXONE 1 GM in DEXTROSE 5%-WATER - 50 ML IVPB SCH (10:22)
[2019-03-20] MEDS: ALLOPURINOL 100 MG TABLET (FP) PO SCH (10:22)
[2019-03-20] MEDS: FLUTICASONE PROP 0.05% 16 GM NASAL SPRAY NS SCH (10:22)
[2019-03-20] MEDS: amLODIPine BESYLATE 5 MG TABLET (FP) PO SCH (10:22)
[2019-03-20] MEDS: VALSARTAN 40 MG TABLET (FP) PO SCH (10:22)
[2019-03-20] MEDS: CLOPIDOGREL BISULFATE 75 MG TABLET (FP) PO SCH (10:22)
[2019-03-20] MEDS: CARVEDILOL 12.5 MG TABLET (FP) PO SCH (10:22)
--- NOTE | 2019-03-20 11:44 | PN ---
Progress Note, Physician - Current Medication List Current Medications: Active Medications Albuterol/Ipratropium (Duoneb -) 1 amp NEB RTID [facility] Last Admin: 03/20/19 07:50 Dose: 1 amp Allopurinol (Zyloprim -) 100 mg PO DAILY [facility] Last Admin: 03/20/19 10:22 Dose: 100 mg Amlodipine Besylate (Norvasc -) 5 mg PO DAILY [facility] Last Admin: 03/20/19 10:22 Dose: 5 mg Atorvastatin Calcium (Lipitor -) 10 mg PO HS [facility] Last Admin: 03/19/19 21:57 Dose: 10 mg Carvedilol (Coreg -) 12.5 mg PO BID [facility] Last Admin: 03/20/19 10:22 Dose: 12.5 mg Cholecalciferol (Vitamin D3 -) 1,000 unit PO DAILY [facility] Last Admin: 03/20/19 10:21 Dose: 1,000 unit Clopidogrel Bisulfate (Plavix -) 75 mg PO DAILY [facility] Last Admin: 03/20/19 10:22 Dose: 75 mg Fluticasone Propionate (Flonase -) 2 spray NS DAILY [facility] Last Admin: 03/20/19 10:22 Dose: 2 spray Gabapentin (Neurontin -) 300 mg PO DAILY [facility] Last Admin: 03/20/19 10:21 Dose: 300 mg Guaifenesin/Codeine Phosphate (Robitussin Ac -) 5 ml PO Q6H PRN PRN Reason: COUGH Last Admin: 03/18/19 23:11 Dose: 5 ml Heparin Sodium (Porcine) (Heparin -) 5,000 unit SQ TID [facility] Last Admin: 03/20/19 06:20 Dose: 5,000 unit Ceftriaxone Sodium 1 gm/ (Dextrose) 50 mls @ 100 mls/hr IVPB DAILY [facility] Last Admin: 03/20/19 10:22 Dose: 100 mls/hr Insulin Aspart (Novolog Vial Sliding Scale -) 1 vial SQ ACHS [facility]; Protocol Last Admin: 03/20/19 06:22 Dose: 4 unit Insulin Detemir (Levemir Vial) 22 units SQ DAILY@2200 [facility] Last Admin: 03/19/19 21:58 Dose: 22 unit Insulin Detemir (Levemir Vial) 24 units SQ DAILY@0700 [facility] Last Admin: 03/20/19 06:21 Dose: 24 unit Pantoprazole Sodium (Protonix -) 40 mg PO DAILY [facility] Last Admin: 03/20/19 10:21 Dose: 40 mg Valsartan (Diovan -) 40 mg PO DAILY [facility] Last Admin: 03/20/19 10:22 Dose: 40 mg - Objective Vital Signs: Vital Signs Temperature 98.0 F 03/20/19 10:00 Pulse Rate 77 03/20/19 10:00 Respiratory Rate 20 03/20/19 10:00 Blood Pressure 138/77 03/20/19 10:00 O2 Sat by Pulse Oximetry (%) 99 03/19/19 21:00 Labs: CBC, BMP 03/16/19 05:30 03/16/19 05:30 INR, PTT INR 1.13 (0.83-1.09) H 03/15/19 05:20 Problem List - Problems (1) Acute CHF Code(s): I50.9 - HEART FAILURE, UNSPECIFIED Qualifiers: Heart failure type: combined systolic and diastolic Qualified Code(s): I50.41 - Acute combined systolic (congestive) and diastolic (congestive) heart failure (2) Acute on chronic renal insufficiency Code(s): N28.9 - DISORDER OF KIDNEY AND URETER, UNSPECIFIED; N18.9 - CHRONIC KIDNEY DISEASE, UNSPECIFIED (3) Biventricular ICD (implantable cardioverter-defibrillator) in place Code(s): Z95.810 - PRESENCE OF AUTOMATIC (IMPLANTABLE) CARDIAC DEFIBRILLATOR (4) CAD (coronary artery disease) Code(s): I25.10 - ATHSCL HEART DISEASE OF [place] CORONARY ARTERY W/O ANG PCTRS Qualifiers: Coronary Disease-Associated Artery/Lesion type: [place] artery [place] vs. transplanted heart: [place] heart Associated angina: without angina Qualified Code(s): I25.10 - Atherosclerotic heart disease of [place] coronary artery without angina pectoris (5) HTN (hypertension) Code(s): I10 - ESSENTIAL (PRIMARY) HYPERTENSION Qualifiers: Hypertension type: essential hypertension Qualified Code(s): I10 - Essential (primary) hypertension (6) History of percutaneous coronary intervention Code(s): Z98.89 - OTHER SPECIFIED POSTPROCEDURAL STATES * DO NOT USE * (7) Hypercholesterolemia Code(s): E78.0 - PURE HYPERCHOLESTEROLEMIA * DO NOT USE * (8) IDDM (insulin dependent diabetes mellitus) Code(s): E11.9 - TYPE 2 DIABETES MELLITUS WITHOUT COMPLICATIONS; Z79.4 - LONG-TERM (CURRENT) USE OF INSULIN Assessment/Plan March 15, 2019 Echo: Normal LV size and fxn, mod ADOLFO, mod MR March 14, 2018 Echo: Mild-mod decreased LVEF 40-45%, pacemaker lead, mild MR, TR, pulm HTN 1. Acute hypercapneic respiratory failure 2. Acute on chronic LV diastolic/systolic failure and pulmonary HTN resolving 3. RML consolidation likely ATX 4. CAD s/p PCI/stent, angina pectoris 5. History of syncope s/p [employer]-D last interrogation 02/08/2019 6. HTN/HCVD 7. Insulin-dependent type 2 diabetes mellitus not at goal control 8. Hypercholesterolemia 9. CKD 10. Anemia PLAN: 1. Continue monitor off diuresis due to azotemia with monitor renal function and electrolytes 2. Continue Carvedilol 12.5 bid, Norvasc 5 qd, Lipitor 10 qhs, Plavix 75 qd, increased valsartan 80 qd as renal fxn stable, d/c ASA 81 qd given stable CAD 3. DVT and GI prophylaxis 4. OOB to chair and ambulate as tolerated 5. BD, O2 as needed, complete empiric abx course, possible flex bronchoscopy to r/o endobronchial pathology as outpatient
--- NOTE | 2019-03-20 12:17 | PN ---
Progress Note (short form) - Note Progress Note: Overall continues to improve. Minimal cough. No fevers recorded. Intake & Output 03/17/19 03/18/19 03/19/19 03/20/19 23:59 23:59 23:59 23:59 Intake Total 616 479 0487 Output Total 850 1350 2250 Balance -10 -540 -1140 Weight 237 lb 244 lb 9.6 oz Last Vital Signs Temp Pulse Resp BP Pulse Ox 98.0 F 77 20 138/77 99 03/20/19 10:00 03/20/19 10:00 03/20/19 10:00 03/20/19 10:00 03/19/19 21:00 Active Medications Albuterol/Ipratropium (Duoneb -) 1 amp NEB RTID [facility] Last Admin: 03/20/19 07:50 Dose: 1 amp Allopurinol (Zyloprim -) 100 mg PO DAILY [facility] Last Admin: 03/20/19 10:22 Dose: 100 mg Amlodipine Besylate (Norvasc -) 5 mg PO DAILY [facility] Last Admin: 03/20/19 10:22 Dose: 5 mg Atorvastatin Calcium (Lipitor -) 10 mg PO HS [facility] Last Admin: 03/19/19 21:57 Dose: 10 mg Carvedilol (Coreg -) 12.5 mg PO BID [facility] Last Admin: 03/20/19 10:22 Dose: 12.5 mg Cholecalciferol (Vitamin D3 -) 1,000 unit PO DAILY [facility] Last Admin: 03/20/19 10:21 Dose: 1,000 unit Clopidogrel Bisulfate (Plavix -) 75 mg PO DAILY [facility] Last Admin: 03/20/19 10:22 Dose: 75 mg Fluticasone Propionate (Flonase -) 2 spray NS DAILY [facility] Last Admin: 03/20/19 10:22 Dose: 2 spray Gabapentin (Neurontin -) 300 mg PO DAILY [facility] Last Admin: 03/20/19 10:21 Dose: 300 mg Guaifenesin/Codeine Phosphate (Robitussin Ac -) 5 ml PO Q6H PRN PRN Reason: COUGH Last Admin: 03/18/19 23:11 Dose: 5 ml Heparin Sodium (Porcine) (Heparin -) 5,000 unit SQ TID [facility] Last Admin: 03/20/19 06:20 Dose: 5,000 unit Ceftriaxone Sodium 1 gm/ (Dextrose) 50 mls @ 100 mls/hr IVPB DAILY [facility] Last Admin: 03/20/19 10:22 Dose: 100 mls/hr Insulin Aspart (Novolog Vial Sliding Scale -) 1 vial SQ ACHS [facility]; Protocol Last Admin: 03/20/19 12:14 Dose: 4 unit Insulin Detemir (Levemir Vial) 22 units SQ DAILY@2200 [facility] Last Admin: 03/19/19 21:58 Dose: 22 unit Insulin Detemir (Levemir Vial) 24 units SQ DAILY@0700 [facility] Last Admin: 03/20/19 06:21 Dose: 24 unit Pantoprazole Sodium (Protonix -) 40 mg PO DAILY [facility] Last Admin: 03/20/19 10:21 Dose: 40 mg Valsartan (Diovan -) 40 mg PO DAILY [facility] Last Admin: 03/20/19 10:22 Dose: 40 mg Gen: NAD at rest Heart: RRR Lung: decreased breath sounds at the bases Abd: soft, nontender Ext: no edema Laboratory Results - last 24 hr 03/19/19 03/19/19 03/20/19 17:05 21:56 06:18 POC Glucometer 209 215 242 03/20/19 11:35 POC Glucometer 208 A/P Acute Hypercapneic Respiratory Failure improving Acute on Chronic Systolic/Diastolic Heart Failure Pulmonary HTN RML Atelectasis CAD HTN CKD Anemia - lasix as needed - monitor urine output, creatinine - inhaled bronchodilators - O2 to keep SpO2 >90% - ABX per ID - CT findings stable, can perform repeat imaging / bronchoscopy if needed as an outpatient Dr Sagastume
--- NOTE | 2019-03-20 12:26 | PN ---
Progress Note, VP SITE - Note Progress Note: Selected Entries 03/16/19 03/16/19 03/16/19 02:00 05:48 09:25 Breakfast Supper Temperature 98.5 F 97.7 F 97.6 F 03/16/19 03/16/19 03/16/19 09:38 14:00 18:00 Breakfast 100% Supper Temperature 98.4 F 98.8 F 03/16/19 03/16/19 03/17/19 20:23 22:00 02:00 Breakfast Supper 100% Temperature 98.6 F 98 F 03/17/19 06:00 Breakfast Supper Temperature 98.2 F Selected Entries 03/19/19 03/19/19 03/19/19 01:00 06:00 10:00 Breakfast Diet Tolerated Lunch Supper Temperature 97.4 F L 98.1 F 98.2 F 03/19/19 03/19/19 03/19/19 10:05 14:00 14:45 Breakfast 100% Diet Tolerated Well Well Lunch 100% Supper Temperature 98.2 F 97.7 F 03/19/19 03/19/19 03/20/19 18:00 18:47 02:00 Breakfast Diet Tolerated Well Lunch Supper 100% Temperature 97.7 F 97.8 F 03/20/19 10:00 Breakfast Diet Tolerated Lunch Supper Temperature 98.0 F Laboratory Tests 03/16/19 05:30 WBC 10.7 H Tolerated breakfast well without reported difficulty. Feeling better
[2019-03-20 12:34] VITALS: BMI 44.6
--- NOTE | 2019-03-20 13:25 | DS ---
Physical Examination Vital Signs: Vital Signs Temperature 98.0 F 03/20/19 10:00 Pulse Rate 77 03/20/19 10:00 Respiratory Rate 20 03/20/19 10:00 Blood Pressure 138/77 03/20/19 10:00 O2 Sat by Pulse Oximetry (%) 99 03/19/19 21:00 Findings/Remarks: pt seen/ examined chart reviewed awake/ comfortable feels better Constitutional: Yes: No Distress, Calm Eyes: Yes: Conjunctiva Clear Neck: Yes: Supple Cardiovascular: Yes: Regular Rate and Rhythm Respiratory: Yes: Diminished Gastrointestinal: Yes: Soft Edema: LLE: Trace, RLE: Trace Neurological: Yes: Alert Psychiatric: Yes: Alert Labs: CBC, BMP 03/16/19 05:30 03/16/19 05:30 Discharge Summary Reason For Visit: CHF/HYPERKALEMIA Current Active Problems Acute CHF (Acute) Acute respiratory failure with hypercapnia (Acute) Atelectasis (Acute) Diabetes (Acute) Diastolic CHF (Acute) Gout (Acute) Hyperlipidemia (Acute) ICD (implantable cardioverter-defibrillator) in place (Acute) Localized swelling of both lower legs (Acute) Peripheral vascular disease (Acute) Presence of permanent cardiac pacemaker (Acute) Prophylactic measure (Acute) Renal dysfunction (Acute) Sepsis (Acute) Shortness of breath (Acute) Vitamin D deficiency (Acute) Hospital Course: Much better In summary admitted for sob treated with abx/lasix pulmonary/ cardiology followed Discharge Diagnosis 1. Acute hypercapneic respiratory failure 2. Acute on chronic LV diastolic/systolic failure and pulmonary HTN resolving 3. RML consolidation likely ATX 4. CAD s/p PCI/stent, angina pectoris 5. 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 HTN/HCVD 7. Insulin-dependent type 2 diabetes mellitus not at goal control 8. Hypercholesterolemia 9. CKD 10. Anemia 11. Overweight 12. Osteoarthritis knees Stable Meds reconcilled f/u in office one week Need to follow with pulmonary/ cardiology as out pt Discussed with nursing staff also Condition: Stable - Instructions Disposition: HOME - Home Medications Comprehensive Discharge Medication List: Ambulatory Orders Allopurinol [Zyloprim -] 100 mg PO DAILY 02/24/16 Omeprazole 20 mg PO DAILY 10/02/16 Cholecalciferol (Vitamin D3) [Vitamin D3] 1,000 unit PO DAILY 05/24/18 Furosemide [Lasix -] 40 mg PO DAILY 05/24/18 Pravastatin Sodium 20 mg PO HS 05/24/18 Insulin (Levemir) [Levemir Vial] 22 units SQ DAILY@2200 10/13/18 Insulin (Levemir) [Levemir Vial] 24 unit SQ DAILY@0700 10/13/18 Insulin Aspart [Novolog] 10 unit SQ TID 10/13/18 Aspirin Coated [Ecotrin -] 81 mg PO DAILY tablet.ec 01/30/19 Carvedilol [Coreg -] 12.5 mg PO BID #60 tablet 01/30/19 Amlodipine Besylate 5 mg PO DAILY 03/14/19 Clopidogrel Bisulfate [Clopidogrel] 75 mg PO DAILY 03/14/19 Gabapentin 300 mg PO DAILY 03/14/19 Insulin (Novolog) [Novolog -] 10 units SQ AC 03/14/19 Albuterol 2.5/Ipratropium 0.5 [Duoneb -] 1 amp NEB RTID amp 03/20/19 Atorvastatin Ca [Lipitor] 10 mg PO HS tablet 03/20/19 Valsartan [Diovan] 40 mg PO DAILY tablet 03/20/19
[2019-03-20 14:45] VITALS: BP 131/59; PULSE 70; TEMP 98.1
== END 2019-03-20 17:08 | disposition home or self-care (01) | DRG 291 ==
LOC: JER 11:00 → JERBED 18:45 → J4W 03-15 15:26 → J5S 03-18 17:25
PROVIDERS: ADMIT Internal Medicine; ATTEND Internal Medicine
DX: I13.0 Hypertensive heart and chronic kidney disease with heart failure and stage 1 through stage 4 chronic kidney disease, or unspecified chronic kidney disease (principal); G93.41 Metabolic encephalopathy; J96.02 Acute respiratory failure with hypercapnia; I50.43 Acute on chronic combined systolic (congestive) and diastolic (congestive) heart failure; E87.2 Acidosis; Z68.41 Body mass index [BMI] 40.0-44.9, adult; J98.11 Atelectasis; I25.10 Atherosclerotic heart disease of native coronary artery without angina pectoris; E11.22 Type 2 diabetes mellitus with diabetic chronic kidney disease; N18.9 Chronic kidney disease, unspecified; E78.5 Hyperlipidemia, unspecified; I87.2 Venous insufficiency (chronic) (peripheral); Z79.4 Long term (current) use of insulin; E66.9 Obesity, unspecified; E87.5 Hyperkalemia; D64.9 Anemia, unspecified; H10.9 Unspecified conjunctivitis; R26.81 Unsteadiness on feet; I27.20 Pulmonary hypertension, unspecified; Z95.810 Presence of automatic (implantable) cardiac defibrillator; E66.01 Morbid (severe) obesity due to excess calories; M10.9 Gout, unspecified; E55.9 Vitamin D deficiency, unspecified; M17.10 Unilateral primary osteoarthritis, unspecified knee
CPT/HCPCS: 36415; 36600; 70450-TC; 71045-TC-FY; 71250-TC; 80048; 80053; 81003; 82375; 82436; 82550; 82553; 82565; 82803; 82962; 83050; 83735; 83880; 84100; 84133; 84156; 84300; 84443; 84484; 85025; 85027; 85610; 85730; 87040; 87086; 93005; 93010; 93306-TC; 93970-TC; 94640; 97116-GP; 97161-GP; 99285-25; J1644

== ENCOUNTER 2019-03-22 16:15 | Inpatient (IN) | payer OTHER ==
[2019-03-22 18:18] LABS: BASO % 0.6 % (0-2.0); EOS % 2.9 % (0-4.5); HEMATOCRIT 30.9 % (32.4-45.2); HEMOGLOBIN 9.5 GM/dL (10.7-15.3); LYMPH % 15.2 % (8-40); MCH 20.6 pg (25.7-33.7); MCHC 30.7 g/dl (32.0-36.0); MEAN CELL VOLUME 67.1 fl (80-96); MEAN PLT VOLUME 10.8 fl (7.5-11.1); MONO % 6.4 % (3.8-10.2); NEUT % 74.9 % (42.8-82.8); PLATELET COUNT 226 K/MM3 (134-434); RDW 15.7 % (11.6-15.6); WHITE BLOOD COUNT 13.3 K/mm3 (4.0-10.0)
[2019-03-22 18:33] LABS: INR 1.06 (0.83-1.09); PROTHROMBIN TIME (PATIENT) 12.5 SEC (9.7-13.0)
[2019-03-22 18:53] LABS: ALK PHOS 131 U/L (45-117); ANION GAP 6 MMOL/L (8-16); BILIRUBIN,TOTAL 0.2 mg/dL (0.2-1); BLOOD UREA NITROGEN 53 mg/dL (7-18); CALCIUM 9.2 mg/dL (8.5-10.1); CHLORIDE 102 mmol/L (98-107); CO2 32 mmol/L (21-32); CREATININE 2.3 mg/dL (0.55-1.3); GLUCOSE,RANDOM 160 mg/dL (74-106); N-TERMINAL BNP 1202.7 pg/ml (5-125); POTASSIUM 4.9 mmol/L (3.5-5.1); SGOT/AST 12 U/L (15-37); SGPT/ALT 16 U/L (13-61); SODIUM 140 mmol/L (136-145); TOT PROT 6.9 g/dl (6.4-8.2)
[2019-03-22] MEDS ORDERED: VANCOMYCIN HCL 1,500 MG in DEXTROSE 5%-WATER - 500 ML IVPB ONE (20:21)
[2019-03-22] MEDS ORDERED: FUROSEMIDE 40 MG/4 ML INJECTABLE VIAL IVPUSH ONE (20:22)
[2019-03-22] MEDS ORDERED: VANCOMYCIN 1 GRAM (PRE-DOCKED) 1,000 MG/250 ML BAG IVPB ONE (20:48)
[2019-03-22] MEDS ORDERED: FUROSEMIDE 40 MG/4 ML INJECTABLE VIAL ONE (20:48)
[2019-03-22] MEDS ORDERED: VANCOMYCIN 500 MG VIAL (RESTRICTED TO ID ONLY) ONE (20:48)
--- NOTE | 2019-03-22 22:55 | PDOC ---
Documentation entered by Darlyn Aguila SCRIBE, acting as scribe for Johan Case MD. Johan Case MD: This documentation has been prepared by the Ayla benton Xhesika, SCRIBE, under my direction and personally reviewed by me in its entirety. I confirm that the documentation accurately reflects all work, treatment, procedures, and medical decision making performed by me. History of Present Illness - General Chief Complaint: Pain Stated Complaint: SICK Time Seen by Provider: 03/22/19 17:05 History Source: Patient Exam Limitations: No Limitations - History of Present Illness Initial Comments: 03/22/19 17:26 The patient is a 73 year old female with a significant past medical history of CHF, CKD, HTN, HLD, IDDM, CAD, chronic venous insufficiency who presents to our ED with 4 days of bilateral lower extremity edema and redness. The patient denies chest pain, shortness of breath, headache and dizziness. The patient denies fever, chills, nausea, vomit, diarrhea and constipation. The patient denies dysuria, frequency, urgency and hematuria. Allergies: NKDA PCP: Iesha Florence Past History - Past Medical History Allergies/Adverse Reactions: Allergies Allergy/AdvReac Type Severity Reaction Status Date / Time No Known Allergies Allergy Verified 03/22/19 19:39 Home Medications: Ambulatory Orders Allopurinol [Zyloprim -] 100 mg PO DAILY 02/24/16 Omeprazole 20 mg PO DAILY 10/02/16 Cholecalciferol (Vitamin D3) [Vitamin D3] 1,000 unit PO DAILY 05/24/18 Furosemide [Lasix -] 40 mg PO DAILY 05/24/18 Pravastatin Sodium 20 mg PO HS 05/24/18 Insulin (Levemir) [Levemir Vial] 22 units SQ DAILY@2200 10/13/18 Insulin (Levemir) [Levemir Vial] 24 unit SQ DAILY@0700 10/13/18 Insulin Aspart [Novolog] 10 unit SQ TID 10/13/18 Aspirin Coated [Ecotrin -] 81 mg PO DAILY tablet.ec 01/30/19 Carvedilol [Coreg -] 12.5 mg PO BID #60 tablet 01/30/19 Amlodipine Besylate 5 mg PO DAILY 03/14/19 Clopidogrel Bisulfate [Clopidogrel] 75 mg PO DAILY 03/14/19 Gabapentin 300 mg PO DAILY 03/14/19 Albuterol 2.5/Ipratropium 0.5 [Duoneb -] 1 amp NEB RTID amp 03/20/19 Atorvastatin Ca [Lipitor] 10 mg PO HS tablet 03/20/19 Valsartan [Diovan] 40 mg PO DAILY tablet 03/20/19 Anemia: Yes (ISH) Asthma: Yes Cancer: No Cardiac Disorders: Yes (HCVD, chest pain syndrome) CVA: No COPD: No CHF: Yes Dementia: No Diabetes: Yes (TYPE II) GI Disorders: No Disorders: Yes (Renal Insuffiency) HTN: Yes Hypercholesterolemia: Yes Liver Disease: No Psychiatric Problems: Yes (anxiety) Seizures: No Thyroid Disease: No - Surgical History Abdominal Surgery: No Appendectomy: No Cardiac Surgery: Yes (STENTS/PPM 2007) Cholecystectomy: No Lung Surgery: No Neurologic Surgery: No Orthopedic Surgery: No - Reproductive History Cervical CA: No Dysfunctional Uterine Bleeding: No Ectopic : No Endometrial CA: No Polycystic Ovaries: No Therapeutic (s) & number: No Tubal Ligation: No - Immunization History Td Vaccination: Yes TDAP Vaccination: Yes Immunization Up to Date: Yes - Suicide/Smoking/Psychosocial Hx Smoking Status: No Smoking History: Unknown if ever smoked Have you smoked in the past 12 months: No Number of Cigarettes Smoked Daily: 0 Hx Alcohol Use: No Drug/Substance Use Hx: No Substance Use Type: None Hx Substance Use Treatment: No Review of Systems - Review of Systems Able to Perform ROS?: Yes Comments:: 03/22/19 17:26 CONSTITUTIONAL: No fever, no chills, no fatigue EYES: No visual changes ENT: No ear pain, no sore throat CARDIOVASCULAR: No chest pain, no palpitations RESPIRATORY: No cough, no SOB GI: No abdominal pain, no nausea, no vomiting, no constipation, no diarrhea GENITOURINARY: No dysuria, no frequency, no hematuria MUSKULOSKELETAL: No backpain, no joint pain, no myalgias SKIN: (+) bilateral lower extremity edema and redness. NEURO: No headache All Other Systems: Reviewed and Negative *Physical Exam - Vital Signs Last Vital Signs Temp Pulse Resp BP Pulse Ox 98.4 F 76 18 155/68 96 03/22/19 16:16 03/22/19 16:16 03/22/19 16:16 03/22/19 16:16 03/22/19 16:16 - Physical Exam Comments: 03/22/19 22:52 EXAMINATION CONSTITUTIONAL: awake and alert, obese in no apparent distress HEAD: Normocephalic; atraumatic EYES: PERRL; EOM intact ENMT: External appears normal; normal oropharynx NECK: Supple; non-tender; no cervical lymphadenopathy CARD: Normal S1, S2; no murmurs, rubs, or gallops RESP: Normal chest excursion with respiration; breath sounds clear and equal bilaterally; no wheezes, rhonchi, or rales ABD: Soft, non-distended; non-tender; no palpable organomegaly, no palpable hernias EXT: bilateral +3 pitting edema with well Demarcated erythema, tender and warm to touch on the right; distal pulses intact SKIN: Warm, dry, see above NEURO: No focal neurological deficiencies. Heart Score/ECG Review #1 ECG reviewed & interpreted by me at: 17:06 (ventrical rate at 77bpm. suspected unspecified pacemaker failure. ) ED Treatment Course - LABORATORY CBC & Chemistry Diagram: 03/22/19 17:45 03/22/19 17:45 - ADDITIONAL ORDERS Additional order review: Laboratory Results 03/22/19 03/22/19 03/22/19 17:45 17:45 17:45 PT with INR 12.50 INR 1.06 Sodium 140 Potassium 4.9 Chloride 102 Carbon Dioxide 32 Anion Gap 6 L BUN 53 H Creatinine 2.3 H Est GFR (CKD-EPI)AfAm 23.48 Est GFR (CKD-EPI)NonAf 20.26 Random Glucose 160 H Calcium 9.2 Total Bilirubin 0.2 AST 12 L ALT 16 Alkaline Phosphatase 131 H Creatine Kinase Cancelled 72 Troponin I Cancelled < 0.02 B-Natriuretic Peptide 1202.7 H Total Protein 6.9 Albumin 3.0 L 03/22/19 17:45 RBC 4.60 MCV 67.1 L MCHC 30.7 L RDW 15.7 H MPV 10.8 Neutrophils % 74.9 Lymphocytes % 15.2 D Monocytes % 6.4 D Eosinophils % 2.9 D Basophils % 0.6 D - RADIOLOGY Radiology Studies Ordered: Category Date Time Status CHEST X-RAY PORTABLE* [RAD] Stat Radiology 05/15/19 17:25 Ordered DUPLEX VASCUL US-2LEGS [US] Stat Ultrasound 03/22/19 17:22 Completed Medical Decision Making - Medical Decision Making 03/22/19 22:55 Patient 73-year-old female with multiple comorbidities who presents with 4 days of worsening lower extremity edema and erythema and tenderness mostly localized to the right lower extremity consistent with acute cellulitis. Bilateral lower extremity Doppler ultrasound shows no evidence of acute DVT. Blood cultures been obtained. Given patient recently discharged from hospital, we'll cover with IV Vanco. We'll also administer additional IV Lasix. Will admit. *DC/Admit/Observation/Transfer Diagnosis at time of Disposition: Pedal edema Cellulitis Qualifiers: Site of cellulitis: extremity Site of cellulitis of extremity: lower extremity Laterality: right Qualified Code(s): L03.115 - Cellulitis of right lower limb - Discharge Dispostion Condition at time of disposition: Fair Decision to Admit order: Yes - Referrals - Patient Instructions - Post Discharge Activity
--- NOTE | 2019-03-22 23:15 | HP ---
Admitting History and Physical - Primary Care Physician PCP: Iesha Combs - Admission Chief Complaint: B/L LE Edema History of Present Illness: This is a 73 y/o woman from home. who presents to the ED with increased swelling and redness to both legs x 4 days. Patient is Creole speaking. [employer] used. #[id number]. Patient reports having increased pain and swelling to both legs. patient reports having fever and chills. Patient denies cough, SOB, CP, palpitations, AP, N/V/D, constipation, dysuria. 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) Pulmonary: Yes: COPD Gastrointestinal: Yes: GERD, Other (anemia, IRON DEF) Renal/: Yes: Renal Inusuff Heme/Onc: Yes: Anemia Musculoskeletal: Yes: Osteoarthritis Rheumatology: Yes: Gout Endocrine: Yes: Diabetes Mellitus - Past Surgical History Past Surgical History: Yes: AICD, Permanent Pacemaker, Stent - Smoking History Smoking history: Unknown if ever smoked Have you smoked in the past 12 months: No Aproximately how many cigarettes per day: 0 - Alcohol/Substance Use Hx Alcohol Use: No History of Substance Use: reports: None - Social History Usual Living Arrangement: Yes: Alone 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) History of Recent Travel: No Home Medications - Allergies Allergies/Adverse Reactions: Allergies Allergy/AdvReac Type Severity Reaction Status Date / Time No Known Allergies Allergy Verified 03/22/19 19:39 - Home Medications Home Medications: Ambulatory Orders Allopurinol [Zyloprim -] 100 mg PO DAILY 02/24/16 Omeprazole 20 mg PO DAILY 10/02/16 Cholecalciferol (Vitamin D3) [Vitamin D3] 1,000 unit PO DAILY 05/24/18 Furosemide [Lasix -] 40 mg PO DAILY 05/24/18 Pravastatin Sodium 20 mg PO HS 05/24/18 Insulin (Levemir) [Levemir Vial] 22 units SQ DAILY@2200 10/13/18 Insulin (Levemir) [Levemir Vial] 24 unit SQ DAILY@0700 10/13/18 Insulin Aspart [Novolog] 10 unit SQ TID 10/13/18 Aspirin Coated [Ecotrin -] 81 mg PO DAILY tablet.ec 01/30/19 Carvedilol [Coreg -] 12.5 mg PO BID #60 tablet 01/30/19 Amlodipine Besylate 5 mg PO DAILY 03/14/19 Clopidogrel Bisulfate [Clopidogrel] 75 mg PO DAILY 03/14/19 Gabapentin 300 mg PO DAILY 03/14/19 Albuterol 2.5/Ipratropium 0.5 [Duoneb -] 1 amp NEB RTID amp 03/20/19 Atorvastatin Ca [Lipitor] 10 mg PO HS tablet 03/20/19 Valsartan [Diovan] 40 mg PO DAILY tablet 03/20/19 Family Disease History - Family Disease History Family History: Unable to Obtain Review of Systems - Review of Systems Constitutional: reports: Chills, Fever Eyes: reports: No Symptoms HENT: reports: No Symptoms Neck: reports: No Symptoms Cardiovascular: reports: No Symptoms Respiratory: reports: No Symptoms Gastrointestinal: reports: No Symptoms Genitourinary: reports: No Symptoms Breasts: reports: No Symptoms Reported Musculoskeletal: reports: Extremity Pain, Joint Swelling Integumentary: reports: Erythema Neurological: reports: No Symptoms Endocrine: reports: No Symptoms Hematology/Lymphatic: reports: No Symptoms Psychiatric: reports: No Symptoms Pain Intensity: 4 Physical Examination Vital Signs: Vital Signs Temperature 98.4 F 03/22/19 16:16 Pulse Rate 80 03/22/19 22:50 Respiratory Rate 20 03/22/19 22:50 Blood Pressure 138/100 03/22/19 22:50 O2 Sat by Pulse Oximetry (%) 95 03/22/19 22:50 Constitutional: Yes: No Distress, Calm, Obese Eyes: Yes: Conjunctiva Clear, EOM Intact, PERRL HENT: Yes: WNL, Atraumatic, Normocephalic Neck: Yes: WNL, Supple, Trachea Midline Cardiovascular: Yes: Regular Rate and Rhythm, S1, S2 Respiratory: Yes: Regular, CTA Bilaterally Gastrointestinal: Yes: WNL, Normal Bowel Sounds, Soft, Abdomen, Obese Extremities: Yes: Erythema Edema: Yes Edema: LLE: 2+, RLE: 2+ Peripheral Pulses WNL: Yes Wound/Incision: Yes: Reddened Neurological: Yes: WNL, Alert, Oriented, Cran Nerves II-XII Intact Psychiatric: Yes: WNL, Alert, Oriented Labs: CBC, BMP 03/22/19 17:45 03/22/19 17:45 Laboratory Results - last 24 hr 03/22/19 03/22/19 03/22/19 17:45 17:45 17:45 WBC 13.3 H RBC 4.60 Hgb 9.5 L Hct 30.9 L MCV 67.1 L MCH 20.6 L MCHC 30.7 L RDW 15.7 H Plt Count 226 MPV 10.8 Absolute Neuts (auto) 10.0 H Neutrophils % 74.9 Lymphocytes % 15.2 D Monocytes % 6.4 D Eosinophils % 2.9 D Basophils % 0.6 D Nucleated RBC % 0 PT with INR 12.50 INR 1.06 Sodium 140 Potassium 4.9 Chloride 102 Carbon Dioxide 32 Anion Gap 6 L BUN 53 H Creatinine 2.3 H Est GFR (CKD-EPI)AfAm 23.48 Est GFR (CKD-EPI)NonAf 20.26 Random Glucose 160 H Calcium 9.2 Total Bilirubin 0.2 AST 12 L ALT 16 Alkaline Phosphatase 131 H Creatine Kinase 72 Troponin I < 0.02 B-Natriuretic Peptide 1202.7 H Total Protein 6.9 Albumin 3.0 L 03/22/19 17:45 WBC RBC Hgb Hct MCV MCH MCHC RDW Plt Count MPV Absolute Neuts (auto) Neutrophils % Lymphocytes % Monocytes % Eosinophils % Basophils % Nucleated RBC % PT with INR INR Sodium Potassium Chloride Carbon Dioxide Anion Gap BUN Creatinine Est GFR (CKD-EPI)AfAm Est GFR (CKD-EPI)NonAf Random Glucose Calcium Total Bilirubin AST ALT Alkaline Phosphatase Creatine Kinase Cancelled Troponin I Cancelled B-Natriuretic Peptide Total Protein Albumin
[2019-03-23 02:46] VITALS: BMI 44.4
[2019-03-23] MEDS: HEPARIN NA (PORCINE) 5,000 UNITS/ML 1ML VIAL SQ SCH ×3 (05:48→21:15)
[2019-03-23 07:11] LABS: BASO % 0.5 % (0-2.0); EOS % 3.4 % (0-4.5); HEMOGLOBIN 8.8 GM/dL (10.7-15.3); LYMPH % 16.6 % (8-40); MCH 20.8 pg (25.7-33.7); MCHC 31.3 g/dl (32.0-36.0); MEAN CELL VOLUME 66.6 fl (80-96); MEAN PLT VOLUME 10.7 fl (7.5-11.1); MONO % 7.2 % (3.8-10.2); NEUT % 72.3 % (42.8-82.8); PLATELET COUNT 211 K/MM3 (134-434); RDW 15.2 % (11.6-15.6); WHITE BLOOD COUNT 10.8 K/mm3 (4.0-10.0)
[2019-03-23 07:27] LABS: CALCIUM 9.2 mg/dL (8.5-10.1); CREATININE 2.2 mg/dL (0.55-1.3); POTASSIUM 4.8 mmol/L (3.5-5.1)
--- NOTE | 2019-03-23 10:07 | CON.ID ---
Consult Consult Specialty:: infectious diseases Referred by:: Elin Reason for Consultation:: cellulitis of the leg - History of Present Illness Chief Complaint: pain of the legs History of Present Illness: history obtained from the charts as patient more sleepy and language 73 y/o woman from home. who is admitted with increased swelling and redness to both legs x 4 days.increased pain and swelling to both legs and also patient has stasis type of picture on the legs history also obtained from the speech language pathologist prn line mentions that she was cold weak and having fever and chills. 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) Pulmonary: Yes: COPD Gastrointestinal: Yes: GERD, Other (anemia, IRON DEF) Renal/: Yes: Renal Inusuff Musculoskeletal: Yes: Osteoarthritis Rheumatology: Yes: Gout Endocrine: Yes: Diabetes Mellitus - Past Surgical History Past Surgical History: Yes: AICD, Permanent Pacemaker, Stent - Alcohol/Substance Use Hx Alcohol Use: No History of Substance Use: reports: None - Smoking History Smoking history: Unknown if ever smoked Have you smoked in the past 12 months: No Aproximately how many cigarettes per day: 0 - Social History 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) History of Recent Travel: No Home Medications - Allergies Allergies/Adverse Reactions: Allergies Allergy/AdvReac Type Severity Reaction Status Date / Time No Known Allergies Allergy Verified 03/22/19 19:39 - Home Medications Home Medications: Ambulatory Orders Allopurinol [Zyloprim -] 100 mg PO DAILY 02/24/16 Omeprazole 20 mg PO DAILY 10/02/16 Cholecalciferol (Vitamin D3) [Vitamin D3] 1,000 unit PO DAILY 05/24/18 Furosemide [Lasix -] 40 mg PO DAILY 05/24/18 Pravastatin Sodium 20 mg PO HS 05/24/18 Insulin (Levemir) [Levemir Vial] 22 units SQ DAILY@2200 10/13/18 Insulin (Levemir) [Levemir Vial] 24 unit SQ DAILY@0700 10/13/18 Insulin Aspart [Novolog] 10 unit SQ TID 10/13/18 Aspirin Coated [Ecotrin -] 81 mg PO DAILY tablet.ec 01/30/19 Carvedilol [Coreg -] 12.5 mg PO BID #60 tablet 01/30/19 Amlodipine Besylate 5 mg PO DAILY 03/14/19 Clopidogrel Bisulfate [Clopidogrel] 75 mg PO DAILY 03/14/19 Gabapentin 300 mg PO DAILY 03/14/19 Albuterol 2.5/Ipratropium 0.5 [Duoneb -] 1 amp NEB RTID amp 03/20/19 Atorvastatin Ca [Lipitor] 10 mg PO HS tablet 03/20/19 Valsartan [Diovan] 40 mg PO DAILY tablet 03/20/19 Review of Systems - Review of Systems Constitutional: reports: Chills, Fever Eyes: reports: No Symptoms HENT: reports: No Symptoms Neck: reports: No Symptoms Cardiovascular: reports: No Symptoms Respiratory: reports: No Symptoms Gastrointestinal: reports: No Symptoms Genitourinary: reports: No Symptoms Musculoskeletal: reports: Other Integumentary: reports: Change in Color, Erythema Neurological: reports: No Symptoms Endocrine: reports: No Symptoms Hematology/Lymphatic: reports: No Symptoms Psychiatric: reports: No Symptoms Physical Exam Vital Signs: Vital Signs Temperature 98.3 F 03/23/19 06:00 Pulse Rate 84 03/23/19 06:00 Respiratory Rate 20 03/23/19 06:00 Blood Pressure 131/74 03/23/19 06:00 O2 Sat by Pulse Oximetry (%) 96 03/23/19 02:30 Constitutional: Yes: Well Nourished, Calm HENT: Yes: Atraumatic Neck: Yes: Supple, Trachea Midline Cardiovascular: Yes: Regular Rate and Rhythm Respiratory: Yes: Regular, CTA Bilaterally Gastrointestinal: Yes: Normal Bowel Sounds, Soft Musculoskeletal: Yes: Other Extremities: Yes: Erythema (b/l legs with venopus stasis changes) Integumentary: Yes: Erythema Neurological: Yes: Alert Psychiatric: Yes: Alert Labs: CBC, BMP 03/23/19 06:30 03/23/19 06:30 Imaging - Results Chest X-ray: Report Reviewed, Image Reviewed Assessment/Plan patient coming in with fever and chills with cellulitis of the leg who got one dose of vanco in the er cellulitis of the legs ertyhema fever pain weakness plan will start patient on zosyn await for all the reports rest as per the team elevation of the legs
[2019-03-23] MEDS ORDERED: PIPERACILLIN/TAZOBACTAM 2.25 GM VIAL IVPB ONE ×3 (10:41→20:57)
[2019-03-23] MEDS ORDERED: DEXTROSE 5%-WATER - 50 ML IVPB ONE ×3 (10:41→20:58)
[2019-03-23] MEDS: PIPERACILLIN/TAZOB 2.25 GM 2.25 GM in DEXTROSE 5%-WATER - 50 ML IVPB SCH ×2 (10:45→17:16)
--- NOTE | 2019-03-23 11:44 | PN ---
Progress Note (short form) - Note Progress Note: pt was admitted for leg pain and swelling Was here recently for CHF exacerbation Vital Signs - 24 hr 03/22/19 03/22/19 03/23/19 16:16 22:50 00:50 Temperature 98.4 F Pulse Rate 76 Pulse Rate [ 80 77 Right Radial] Respiratory 18 20 18 Rate Blood Pressure 155/68 Blood Pressure 138/100 144/66 [Left Arm] O2 Sat by Pulse 96 95 99 Oximetry (%) 03/23/19 03/23/19 03/23/19 02:30 06:00 09:00 Temperature 98.6 F 98.3 F Pulse Rate 87 84 84 Pulse Rate [ Right Radial] Respiratory 20 20 18 Rate Blood Pressure 140/72 131/74 139/61 Blood Pressure [Left Arm] O2 Sat by Pulse 96 96 Oximetry (%) Current Medications Generic Name Dose Route Start Last Admin Trade Name Freq PRN Reason Stop Dose Admin Heparin Sodium (Porcine) 5,000 unit 03/23/19 06:00 03/23/19 05:48 Heparin - SQ Not Given TID MARTIN Piperacillin Sod/Tazobactam 50 mls @ 100 mls/hr 03/23/19 10:30 03/23/19 10:45 Sod 2.25 gm/ Dextrose IVPB 100 mls/hr Q8H-IV MARTIN Administration Protocol Laboratory Results - last 24 hr 03/22/19 03/22/19 03/22/19 17:45 17:45 17:45 WBC 13.3 H RBC 4.60 Hgb 9.5 L Hct 30.9 L MCV 67.1 L MCH 20.6 L MCHC 30.7 L RDW 15.7 H Plt Count 226 MPV 10.8 Absolute Neuts (auto) 10.0 H Neutrophils % 74.9 Lymphocytes % 15.2 D Monocytes % 6.4 D Eosinophils % 2.9 D Basophils % 0.6 D Nucleated RBC % 0 PT with INR 12.50 INR 1.06 Sodium 140 Potassium 4.9 Chloride 102 Carbon Dioxide 32 Anion Gap 6 L BUN 53 H Creatinine 2.3 H Est GFR (CKD-EPI)AfAm 23.48 Est GFR (CKD-EPI)NonAf 20.26 Random Glucose 160 H Calcium 9.2 Total Bilirubin 0.2 AST 12 L ALT 16 Alkaline Phosphatase 131 H Creatine Kinase 72 Troponin I < 0.02 B-Natriuretic Peptide 1202.7 H Total Protein 6.9 Albumin 3.0 L 03/22/19 03/23/19 03/23/19 17:45 06:30 06:30 WBC 10.8 H RBC 4.20 Hgb 8.8 L Hct 28.0 L MCV 66.6 L MCH 20.8 L MCHC 31.3 L RDW 15.2 Plt Count 211 MPV 10.7 Absolute Neuts (auto) 7.8 Neutrophils % 72.3 Lymphocytes % 16.6 Monocytes % 7.2 Eosinophils % 3.4 Basophils % 0.5 Nucleated RBC % 0 PT with INR INR Sodium 138 Potassium 4.8 Chloride 101 Carbon Dioxide 30 Anion Gap 6 L BUN 55 H Creatinine 2.2 H Est GFR (CKD-EPI)AfAm 24.78 Est GFR (CKD-EPI)NonAf 21.38 Random Glucose 237 H Calcium 9.2 Total Bilirubin AST ALT Alkaline Phosphatase Creatine Kinase Cancelled Troponin I Cancelled B-Natriuretic Peptide Total Protein Albumin S1 S2 irregular Lungs decreased Abd- soft, NT edema+ Rt leg -erythema and tender and warm PLAN Iv antibiotics-->Zosyn continue with home meds creatinine baseline OOB daily PT eval ID eval noted Pt does not have bed bugs -- no signs of rash Problem List - Problems (1) Cellulitis Code(s): L03.90 - CELLULITIS, UNSPECIFIED Qualifiers: Site of cellulitis: extremity Site of cellulitis of extremity: lower extremity Laterality: right Qualified Code(s): L03.115 - Cellulitis of right lower limb (2) CAD (coronary artery disease) Code(s): I25.10 - ATHSCL HEART DISEASE OF [place] CORONARY ARTERY W/O ANG PCTRS Qualifiers: Coronary Disease-Associated Artery/Lesion type: [place] artery [place] vs. transplanted heart: [place] heart Associated angina: without angina Qualified Code(s): I25.10 - Atherosclerotic heart disease of [place] coronary artery without angina pectoris (3) CHF (congestive heart failure) Code(s): I50.9 - HEART FAILURE, UNSPECIFIED Qualifiers: Heart failure type: combined systolic and diastolic Heart failure chronicity: acute on chronic Qualified Code(s): I50.43 - Acute on chronic combined systolic (congestive) and diastolic (congestive) heart failure (4) Diastolic CHF Code(s): I50.30 - UNSPECIFIED DIASTOLIC (CONGESTIVE) HEART FAILURE (5) Renal dysfunction Code(s): N28.9 - DISORDER OF KIDNEY AND URETER, UNSPECIFIED (6) Renal insufficiency Code(s): N28.9 - DISORDER OF KIDNEY AND URETER, UNSPECIFIED (7) Venous insufficiency of both lower extremities Code(s): I87.2 - VENOUS INSUFFICIENCY (CHRONIC) (PERIPHERAL)
[2019-03-23] MEDS ORDERED: ALBUTEROL SO4 2.5/IPRATROPIUM 0.5 INH SOL 3 ML VIAL.NEB. NEB PRN (12:12)
[2019-03-23] MEDS ORDERED: PT OWN MED DRAWER 7, Y5N ONE (12:44)
--- NOTE | 2019-03-23 14:22 | EKG ---
Test Reason : Blood Pressure : / mmHG Vent. Rate : 077 BPM Atrial Rate : 077 BPM P-R Int : 000 ms QRS Dur : 164 ms QT Int : 444 ms P-R-T Axes : 053 114 046 degrees QTc Int : 502 ms Ventricular-paced rhythm ABNORMAL ECG WHEN COMPARED WITH ECG OF 14-MAR-2019 11:19, VENT. RATE HAS DECREASED BY 7 BPM Confirmed by JENNIFER PABON MD ([id number]) on 03/23/2019 2:22:17 PM Referred By: Confirmed By:JENNIFER PABON MD
[2019-03-23] MEDS: LACTOBACILLUS ACIDOPHILUS 1 TABLET PO SCH (15:07)
[2019-03-23] MEDS: INSULIN SLIDING SCALE (NOVOLOG) 1 VIAL SQ SCH (17:17)
[2019-03-23] MEDS: ATORVASTATIN CA 10 MG TABLET (FP) PO SCH (21:15)
[2019-03-23] MEDS: GABAPENTIN 300 MG CAPSULE (FP) PO SCH (21:15)
[2019-03-23] MEDS: CARVEDILOL 12.5 MG TABLET (FP) PO SCH (21:15)
[2019-03-23] MEDS ORDERED: INSULIN (LEVEMIR) 100 UNITS/ML UNITS SQ SCH (22:00)
[2019-03-23] MEDS ORDERED: INSULIN (NOVOLOG) ASPART 100 UNITS/ML 10ML VIAL SQ ONE (22:06)
[2019-03-23] MEDS ORDERED: Insulin (LOG) Aspart 100 UNITS/ML VIAL SQ ONE (22:06)
[2019-03-24] MEDS: PIPERACILLIN/TAZOB 2.25 GM 2.25 GM in DEXTROSE 5%-WATER - 50 ML IVPB SCH ×3 (01:15→17:02)
[2019-03-24] MEDS: HEPARIN NA (PORCINE) 5,000 UNITS/ML 1ML VIAL SQ SCH ×3 (05:39→21:56)
[2019-03-24] MEDS: INSULIN (LEVEMIR) 100 UNITS/ML UNITS SQ SCH (06:03)
[2019-03-24] MEDS: INSULIN SLIDING SCALE (NOVOLOG) 1 VIAL SQ SCH ×4 (06:04→21:55)
[2019-03-24] MEDS ORDERED: DEXTROSE 5%-WATER - 50 ML IVPB ONE ×2 (09:06→15:40)
[2019-03-24] MEDS ORDERED: PIPERACILLIN/TAZOBACTAM 2.25 GM VIAL IVPB ONE ×2 (09:06→15:40)
[2019-03-24] MEDS: ALLOPURINOL 100 MG TABLET (FP) PO SCH (09:58)
[2019-03-24] MEDS: CLOPIDOGREL BISULFATE 75 MG TABLET (FP) PO SCH (09:58)
[2019-03-24] MEDS: FUROSEMIDE 40 MG TABLET (FP) PO SCH (09:58)
[2019-03-24] MEDS: GABAPENTIN 300 MG CAPSULE (FP) PO SCH ×2 (09:58→21:56)
[2019-03-24] MEDS: PANTOPRAZOLE 20 MG TABLET (FP) PO SCH (09:58)
[2019-03-24] MEDS: CARVEDILOL 12.5 MG TABLET (FP) PO SCH ×2 (09:58→21:56)
[2019-03-24] MEDS: LACTOBACILLUS ACIDOPHILUS 1 TABLET PO SCH (09:58)
[2019-03-24] MEDS: ASPIRIN COATED 81 MG TABLET.EC PO SCH (09:58)
[2019-03-24] MEDS: amLODIPine BESYLATE 5 MG TABLET (FP) PO SCH (09:58)
[2019-03-24] MEDS: VALSARTAN 40 MG TABLET (FP) PO SCH (10:04)
--- NOTE | 2019-03-24 10:30 | PN ---
Progress Note (short form) - Note Progress Note: pt seen/ examined chart reviewed pt feels better Vital Signs Temp 98.1 F 03/24/19 10:05 Pulse 74 03/24/19 10:05 Resp 18 03/24/19 10:05 BP 135/64 03/24/19 10:05 Pulse Ox 93 L 03/23/19 21:00 Intake & Output 03/23/19 03/23/19 03/24/19 11:59 23:59 11:59 Intake Total 500 710 300 Balance 500 710 300 Weight 243 lb 5 oz Intake: IVPB 50 50 Oral 500 660 250 Other: Voiding Method Toilet Toilet Toilet # Unmeasured Voids Void 1 1 Bowel Movement Yes No # Bowel Movements 2 Height 5 ft 2 in Body Mass Index (BMI) 44.4 Weight Measurement Method Standing Scale Active Medications Albuterol/Ipratropium (Duoneb -) 1 amp NEB Q8H PRN PRN Reason: ASTHMA Allopurinol (Zyloprim -) 100 mg PO DAILY [facility] Last Admin: 03/24/19 09:58 Dose: 100 mg Amlodipine Besylate (Norvasc -) 5 mg PO DAILY [facility] Last Admin: 03/24/19 09:58 Dose: 5 mg Aspirin (Ecotrin -) 81 mg PO DAILY [facility] Last Admin: 03/24/19 09:58 Dose: 81 mg Atorvastatin Calcium (Lipitor -) 10 mg PO HS [facility] Last Admin: 03/23/19 21:15 Dose: 10 mg Carvedilol (Coreg -) 12.5 mg PO BID [facility] Last Admin: 03/24/19 09:58 Dose: 12.5 mg Clopidogrel Bisulfate (Plavix -) 75 mg PO DAILY [facility] Last Admin: 03/24/19 09:58 Dose: 75 mg Furosemide (Lasix -) 40 mg PO DAILY [facility] Last Admin: 03/24/19 09:58 Dose: 40 mg Gabapentin (Neurontin -) 300 mg PO BID [facility] Last Admin: 03/24/19 09:58 Dose: 300 mg Heparin Sodium (Porcine) (Heparin -) 5,000 unit SQ TID [facility] Last Admin: 03/24/19 05:39 Dose: 5,000 unit Piperacillin Sod/Tazobactam (Sod 2.25 gm/ Dextrose) 50 mls @ 100 mls/hr IVPB Q8H-IV [facility]; Protocol Last Admin: 03/24/19 09:57 Dose: 100 mls/hr Insulin Aspart (Novolog Vial Sliding Scale -) 1 vial SQ TIDAC [facility]; Protocol Last Admin: 03/24/19 06:04 Dose: 4 units Insulin Detemir (Levemir Vial) 22 units SQ DAILY@2200 [facility] Last Admin: 03/23/19 21:16 Dose: 22 units Insulin Detemir (Levemir Vial) 24 units SQ DAILY@0700 [facility] Last Admin: 03/24/19 06:03 Dose: 24 units Lactobacillus Acidophilus (Bacid -) 1 tab PO DAILY [facility] Last Admin: 03/24/19 09:58 Dose: 1 tab Pantoprazole Sodium (Protonix -) 20 mg PO DAILY [facility] Last Admin: 03/24/19 09:58 Dose: 20 mg Valsartan (Diovan -) 40 mg PO DAILY [facility] Last Admin: 03/24/19 10:04 Dose: 40 mg CBC, BMP 03/23/19 06:30 03/23/19 06:30 Microbiology 03/22/19 22:10 Blood Culture - Preliminary Blood - Peripheral Venous NO GROWTH OBTAINED AFTER 24 HOURS, INCUBATION TO CONTINUE FOR 4 DAYS. 03/22/19 17:45 Blood Culture - Preliminary Blood - Peripheral Venous NO GROWTH OBTAINED AFTER 24 HOURS, INCUBATION TO CONTINUE FOR 4 DAYS. Physical Exam S1 S2 irregular Lungs decreased Abd- soft, NT edema+ Rt leg -erythema and tender and warm -- much better PLAN Iv antibiotics-->Zosyn-- better continue with home meds creatinine baseline OOB daily PT eval ID eval noted endo consult for poorly controlled diabetes It has been difficult managed at home due to multiple comorbidities str if pt agrees - always refuses will follow
[2019-03-24] MEDS ORDERED: INSULIN (NOVOLOG) ASPART 100 UNITS/ML 10ML VIAL ONE ×2 (11:36→21:13)
--- NOTE | 2019-03-24 12:37 | PN ---
Progress Note, Physician History of Present Illness: patient stable looks much better - Current Medication List Current Medications: Active Medications Albuterol/Ipratropium (Duoneb -) 1 amp NEB Q8H PRN PRN Reason: ASTHMA Allopurinol (Zyloprim -) 100 mg PO DAILY [facility] Last Admin: 03/24/19 09:58 Dose: 100 mg Amlodipine Besylate (Norvasc -) 5 mg PO DAILY [facility] Last Admin: 03/24/19 09:58 Dose: 5 mg Aspirin (Ecotrin -) 81 mg PO DAILY [facility] Last Admin: 03/24/19 09:58 Dose: 81 mg Atorvastatin Calcium (Lipitor -) 10 mg PO HS [facility] Last Admin: 03/23/19 21:15 Dose: 10 mg Carvedilol (Coreg -) 12.5 mg PO BID [facility] Last Admin: 03/24/19 09:58 Dose: 12.5 mg Clopidogrel Bisulfate (Plavix -) 75 mg PO DAILY [facility] Last Admin: 03/24/19 09:58 Dose: 75 mg Furosemide (Lasix -) 40 mg PO DAILY [facility] Last Admin: 03/24/19 09:58 Dose: 40 mg Gabapentin (Neurontin -) 300 mg PO BID [facility] Last Admin: 03/24/19 09:58 Dose: 300 mg Heparin Sodium (Porcine) (Heparin -) 5,000 unit SQ TID [facility] Last Admin: 03/24/19 05:39 Dose: 5,000 unit Piperacillin Sod/Tazobactam (Sod 2.25 gm/ Dextrose) 50 mls @ 100 mls/hr IVPB Q8H-IV [facility]; Protocol Last Admin: 03/24/19 09:57 Dose: 100 mls/hr Insulin Aspart (Novolog Vial Sliding Scale -) 1 vial SQ TIDAC [facility]; Protocol Last Admin: 03/24/19 11:36 Dose: 4 units Insulin Detemir (Levemir Vial) 22 units SQ DAILY@2200 [facility] Last Admin: 03/23/19 21:16 Dose: 22 units Insulin Detemir (Levemir Vial) 24 units SQ DAILY@0700 [facility] Last Admin: 03/24/19 06:03 Dose: 24 units Lactobacillus Acidophilus (Bacid -) 1 tab PO DAILY [facility] Last Admin: 03/24/19 09:58 Dose: 1 tab Pantoprazole Sodium (Protonix -) 20 mg PO DAILY [facility] Last Admin: 03/24/19 09:58 Dose: 20 mg Valsartan (Diovan -) 40 mg PO DAILY [facility] Last Admin: 03/24/19 10:04 Dose: 40 mg - Objective Vital Signs: Vital Signs Temperature 98.1 F 03/24/19 10:05 Pulse Rate 74 03/24/19 10:05 Respiratory Rate 18 03/24/19 10:05 Blood Pressure 135/64 03/24/19 10:05 O2 Sat by Pulse Oximetry (%) 93 L 03/23/19 21:00 Constitutional: Yes: No Distress, Calm Cardiovascular: Yes: Regular Rate and Rhythm Respiratory: Yes: Regular, CTA Bilaterally Gastrointestinal: Yes: Normal Bowel Sounds, Soft Musculoskeletal: Yes: WNL Extremities: Yes: Other Neurological: Yes: Alert, Oriented Psychiatric: Yes: Alert, Oriented Labs: CBC, BMP 03/23/19 06:30 03/23/19 06:30 INR, PTT INR 1.06 (0.83-1.09) 03/22/19 17:45 Assessment/Plan patient coming in with fever and chills with cellulitis of the leg who got one dose of vanco in the er cellulitis of the legs ertyhema fever pain weakness plan continue abx leg looking much better
--- NOTE | 2019-03-24 13:22 | CONSULT ---
Consult Consult Specialty:: Endocrinology Referred by:: Dr Combs Reason for Consultation:: Hyperglycemia - History of Present Illness Chief Complaint: Leg edema History of Present Illness: This is a 73 y/o woman from home. who presented to the ED with increased swelling and redness to both legs x 4 days. Patient is Creole speaking. [employer] used. #[id number]. Patient reported having increased pain and swelling to both legs, fever and chills. Patient denied cough, SOB, CP, palpitations, AP, N/V/D , constipation, dysuria. Pt referred for management of hyperglycemia. Pt was taking Levemir 12 BID with Novolog 6 units TID with meals when last seen in the office in 12/2017. Pt has h/o wide fluctuations in blood sugar secondary to nonadherence to diet. 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-D) Pulmonary: Yes: COPD Gastrointestinal: Yes: GERD, Other (anemia, IRON DEF) Renal/: Yes: Renal Inusuff Musculoskeletal: Yes: Osteoarthritis Rheumatology: Yes: Gout Endocrine: Yes: Diabetes Mellitus - Past Surgical History Past Surgical History: Yes: AICD, Permanent Pacemaker, Stent - Alcohol/Substance Use Hx Alcohol Use: No History of Substance Use: reports: None - Smoking History Smoking history: Unknown if ever smoked Have you smoked in the past 12 months: No Aproximately how many cigarettes per day: 0 - Social History 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: Support Services ([employer]) History of Recent Travel: No Home Medications - Allergies Allergies/Adverse Reactions: Allergies Allergy/AdvReac Type Severity Reaction Status Date / Time No Known Allergies Allergy Verified 03/22/19 19:39 - Home Medications Home Medications: Ambulatory Orders Allopurinol [Zyloprim -] 100 mg PO DAILY 02/24/16 Omeprazole 20 mg PO DAILY 10/02/16 Cholecalciferol (Vitamin D3) [Vitamin D3] 1,000 unit PO DAILY 05/24/18 Furosemide [Lasix -] 40 mg PO DAILY 05/24/18 Pravastatin Sodium 20 mg PO HS 05/24/18 Insulin (Levemir) [Levemir Vial] 22 units SQ DAILY@2200 10/13/18 Insulin (Levemir) [Levemir Vial] 24 unit SQ DAILY@0700 10/13/18 Insulin Aspart [Novolog] 10 unit SQ TID 10/13/18 Aspirin Coated [Ecotrin -] 81 mg PO DAILY tablet.ec 01/30/19 Carvedilol [Coreg -] 12.5 mg PO BID #60 tablet 01/30/19 Amlodipine Besylate 5 mg PO DAILY 03/14/19 Clopidogrel Bisulfate [Clopidogrel] 75 mg PO DAILY 03/14/19 Gabapentin 300 mg PO DAILY 03/14/19 Albuterol 2.5/Ipratropium 0.5 [Duoneb -] 1 amp NEB RTID amp 03/20/19 Atorvastatin Ca [Lipitor] 10 mg PO HS tablet 03/20/19 Valsartan [Diovan] 40 mg PO DAILY tablet 03/20/19 Family Disease History - Family Disease History Family Disease History: Diabetes: Mother Review of Systems - Review of Systems Constitutional: reports: No Symptoms Eyes: reports: No Symptoms HENT: reports: No Symptoms Neck: reports: No Symptoms Cardiovascular: reports: No Symptoms Respiratory: reports: No Symptoms Gastrointestinal: reports: No Symptoms Musculoskeletal: reports: Other (leg swelling) Neurological: reports: No Symptoms Endocrine: reports: No Symptoms Physical Exam Vital Signs: Vital Signs Temperature 98.1 F 03/24/19 10:05 Pulse Rate 74 03/24/19 10:05 Respiratory Rate 18 03/24/19 10:05 Blood Pressure 135/64 03/24/19 10:05 O2 Sat by Pulse Oximetry (%) 93 L 03/23/19 21:00 Constitutional: Yes: No Distress, Calm Eyes: Yes: Conjunctiva Clear, EOM Intact HENT: Yes: Atraumatic, Normocephalic Neck: Yes: Supple, Trachea Midline Cardiovascular: Yes: Regular Rate and Rhythm Respiratory: Yes: Regular, CTA Bilaterally Gastrointestinal: Yes: Normal Bowel Sounds, Soft Musculoskeletal: Yes: WNL Extremities: Yes: WNL Edema: Yes Neurological: Yes: Alert, Oriented Labs: CBC, BMP 03/23/19 06:30 03/23/19 06:30 Assessment/Plan AP: T2DM: Uncontrolled Pt was taking Levemir 12 BID with Novolog 6 units TID with meals when last seen in the office in 12/2017. Pt has h/o wide fluctuations in blood sugar with hypoglycemia secondary to nonadherence to diet. Pt got Levemir 22 last night and 24 today morning. Will decrease today bedtime Levemir dose to 10 units for now. Will increase it tomorrow if necessary depending on the blood sugar tomorrow morning. BGM QACHS and at 3 AM NOvolog SS coverage Leg Edema Cellulitis: Abx as per ID
[2019-03-24] MEDS ORDERED: DEXTROSE 50%-WATER - 25 GM/50 ML VIAL IVPUSH PRN (16:30)
[2019-03-24] MEDS: ATORVASTATIN CA 10 MG TABLET (FP) PO SCH (21:56)
[2019-03-24] MEDS ORDERED: INSULIN (NOVOLOG) ASPART 100 UNITS/ML 10ML VIAL SQ ONE (22:00)
[2019-03-24] MEDS ORDERED: INSULIN (LEVEMIR) 100 UNITS/ML UNITS SQ SCH (22:00)
[2019-03-25] MEDS ORDERED: PIPERACILLIN/TAZOBACTAM 2.25 GM VIAL IVPB ONE ×2 (01:35→11:33)
[2019-03-25] MEDS ORDERED: DEXTROSE 5%-WATER - 50 ML IVPB ONE ×2 (01:36→11:34)
[2019-03-25] MEDS: PIPERACILLIN/TAZOB 2.25 GM 2.25 GM in DEXTROSE 5%-WATER - 50 ML IVPB SCH ×2 (01:55→11:40)
[2019-03-25] MEDS: HEPARIN NA (PORCINE) 5,000 UNITS/ML 1ML VIAL SQ SCH ×3 (05:31→22:26)
[2019-03-25] MEDS: INSULIN (LEVEMIR) 100 UNITS/ML UNITS SQ SCH ×2 (06:23→22:50)
[2019-03-25] MEDS: INSULIN SLIDING SCALE (NOVOLOG) 1 VIAL SQ SCH ×4 (06:24→22:50)
[2019-03-25] MEDS ORDERED: INSULIN (LEVEMIR) 100 UNITS/ML UNITS SQ ONE (07:02)
[2019-03-25] MEDS ORDERED: INSULIN (NOVOLOG) ASPART 100 UNITS/ML 10ML VIAL ONE ×2 (07:02→12:46)
[2019-03-25 08:08] LABS: BASO % 0.9 % (0-2.0); EOS % 5.1 % (0-4.5); HEMOGLOBIN 8.1 GM/dL (10.7-15.3); LYMPH % 23.9 % (8-40); MCH 21.1 pg (25.7-33.7); MCHC 31.2 g/dl (32.0-36.0); MEAN CELL VOLUME 67.7 fl (80-96); MEAN PLT VOLUME 11.1 fl (7.5-11.1); MONO % 8.3 % (3.8-10.2); NEUT % 61.8 % (42.8-82.8); PLATELET COUNT 192 K/MM3 (134-434); RBC 3.84 M/mm3 (3.60-5.2); RDW 15.5 % (11.6-15.6); WHITE BLOOD COUNT 8.3 K/mm3 (4.0-10.0)
[2019-03-25 08:35] LABS: ALBUMIN 2.5 g/dl (3.4-5.0); BILIRUBIN,TOTAL 0.2 mg/dL (0.2-1); CALCIUM 8.8 mg/dL (8.5-10.1); CREATININE 2.4 mg/dL (0.55-1.3); POTASSIUM 4.8 mmol/L (3.5-5.1)
--- NOTE | 2019-03-25 10:13 | PN ---
Progress Note (short form) - Note Progress Note: pt seen/ examined chart reviewed all f/u noted/ appreciated awake/ comfortable Vital Signs Temp 98 F 03/25/19 05:59 Pulse 82 03/25/19 05:59 Resp 18 03/25/19 05:59 BP 147/62 18 05:59 Pulse Ox 98 03/24/19 21:00 Intake & Output 03/24/19 03/24/19 03/25/19 11:59 23:59 11:59 Intake Total 300 350 50 Balance 300 350 50 Weight 243 lb 12.8 oz Intake: IVPB 50 100 50 Oral 250 250 Other: Voiding Method Toilet Diaper Diaper # Unmeasured Voids Void 1 2 Bowel Movement No Yes Weight Measurement Method Chair Scale Active Medications Albuterol/Ipratropium (Duoneb -) 1 amp NEB Q8H PRN PRN Reason: ASTHMA Allopurinol (Zyloprim -) 100 mg PO DAILY [facility] Last Admin: 03/24/19 09:58 Dose: 100 mg Amlodipine Besylate (Norvasc -) 5 mg PO DAILY [facility] Last Admin: 03/24/19 09:58 Dose: 5 mg Aspirin (Ecotrin -) 81 mg PO DAILY [facility] Last Admin: 03/24/19 09:58 Dose: 81 mg Atorvastatin Calcium (Lipitor -) 10 mg PO HS [facility] Last Admin: 03/24/19 21:56 Dose: 10 mg Carvedilol (Coreg -) 12.5 mg PO BID [facility] Last Admin: 03/24/19 21:56 Dose: 12.5 mg Clopidogrel Bisulfate (Plavix -) 75 mg PO DAILY [facility] Last Admin: 03/24/19 09:58 Dose: 75 mg Dextrose (D50w (Vial) -) 25 gm IVPUSH PRN PRN PRN Reason: HYPOGLYCEMIA Furosemide (Lasix -) 40 mg PO DAILY [facility] Last Admin: 03/24/19 09:58 Dose: 40 mg Gabapentin (Neurontin -) 300 mg PO BID [facility] Last Admin: 03/24/19 21:56 Dose: 300 mg Heparin Sodium (Porcine) (Heparin -) 5,000 unit SQ TID [facility] Last Admin: 03/25/19 05:31 Dose: 5,000 unit Piperacillin Sod/Tazobactam (Sod 2.25 gm/ Dextrose) 50 mls @ 100 mls/hr IVPB Q8H-IV [facility]; Protocol Last Admin: 03/25/19 01:55 Dose: 100 mls/hr Insulin Aspart (Novolog Vial Sliding Scale -) 1 vial SQ HS [facility]; Protocol Last Admin: 03/24/19 21:55 Dose: 6 units Insulin Aspart (Novolog Vial Sliding Scale -) 1 vial SQ TIDAC [facility]; Protocol Last Admin: 03/25/19 06:24 Dose: 8 units Insulin Detemir (Levemir Vial) 24 units SQ DAILY@0700 [facility] Last Admin: 03/25/19 06:23 Dose: 24 units Insulin Detemir (Levemir Vial) 10 units SQ HS [facility] Last Admin: 03/24/19 21:55 Dose: 10 units Lactobacillus Acidophilus (Bacid -) 1 tab PO DAILY [facility] Last Admin: 03/24/19 09:58 Dose: 1 tab Pantoprazole Sodium (Protonix -) 20 mg PO DAILY [facility] Last Admin: 03/24/19 09:58 Dose: 20 mg Valsartan (Diovan -) 40 mg PO DAILY [facility] Last Admin: 03/24/19 10:04 Dose: 40 mg CBC, BMP 03/25/19 07:15 03/25/19 07:15 Microbiology 03/22/19 22:10 Blood Culture - Preliminary Blood - Peripheral Venous NO GROWTH OBTAINED AFTER 48 HOURS, INCUBATION TO CONTINUE FOR 3 DAYS. 03/22/19 17:45 Blood Culture - Preliminary Blood - Peripheral Venous NO GROWTH OBTAINED AFTER 48 HOURS, INCUBATION TO CONTINUE FOR 3 DAYS. Physical Exam S1 S2 irregular Lungs decreased Abd- soft, NT edema+ Rt leg -erythema and tender and warm -- much better PLAN Iv antibiotics-->Zosyn-- better-- change to po ? continue with home meds creatinine baseline OOB daily PT eval ID to follow endo consult for poorly controlled diabetes-- noted/ appreciated monitor will follow
[2019-03-25] MEDS: CLOPIDOGREL BISULFATE 75 MG TABLET (FP) PO SCH (11:40)
[2019-03-25] MEDS: FUROSEMIDE 40 MG TABLET (FP) PO SCH (11:41)
[2019-03-25] MEDS: ALLOPURINOL 100 MG TABLET (FP) PO SCH (11:41)
[2019-03-25] MEDS: amLODIPine BESYLATE 5 MG TABLET (FP) PO SCH (11:41)
[2019-03-25] MEDS: PANTOPRAZOLE 20 MG TABLET (FP) PO SCH (11:41)
[2019-03-25] MEDS: VALSARTAN 40 MG TABLET (FP) PO SCH (11:41)
[2019-03-25] MEDS: LACTOBACILLUS ACIDOPHILUS 1 TABLET PO SCH (11:41)
[2019-03-25] MEDS: ASPIRIN COATED 81 MG TABLET.EC PO SCH (11:41)
[2019-03-25] MEDS: CARVEDILOL 12.5 MG TABLET (FP) PO SCH ×2 (11:42→22:25)
[2019-03-25] MEDS: GABAPENTIN 300 MG CAPSULE (FP) PO SCH ×2 (11:42→22:26)
--- NOTE | 2019-03-25 12:19 | PN ---
Progress Note, Physician History of Present Illness: stable no complaints legs looking better patient doing better - Current Medication List Current Medications: Active Medications Albuterol/Ipratropium (Duoneb -) 1 amp NEB Q8H PRN PRN Reason: ASTHMA Allopurinol (Zyloprim -) 100 mg PO DAILY [facility] Last Admin: 03/25/19 11:41 Dose: 100 mg Amlodipine Besylate (Norvasc -) 5 mg PO DAILY [facility] Last Admin: 03/25/19 11:41 Dose: 5 mg Aspirin (Ecotrin -) 81 mg PO DAILY [facility] Last Admin: 03/25/19 11:41 Dose: 81 mg Atorvastatin Calcium (Lipitor -) 10 mg PO HS [facility] Last Admin: 03/24/19 21:56 Dose: 10 mg Carvedilol (Coreg -) 12.5 mg PO BID [facility] Last Admin: 03/25/19 11:42 Dose: 12.5 mg Clopidogrel Bisulfate (Plavix -) 75 mg PO DAILY [facility] Last Admin: 03/25/19 11:40 Dose: 75 mg Dextrose (D50w (Vial) -) 25 gm IVPUSH PRN PRN PRN Reason: HYPOGLYCEMIA Furosemide (Lasix -) 40 mg PO DAILY [facility] Last Admin: 03/25/19 11:41 Dose: 40 mg Gabapentin (Neurontin -) 300 mg PO BID [facility] Last Admin: 03/25/19 11:42 Dose: 300 mg Heparin Sodium (Porcine) (Heparin -) 5,000 unit SQ TID [facility] Last Admin: 03/25/19 05:31 Dose: 5,000 unit Piperacillin Sod/Tazobactam (Sod 2.25 gm/ Dextrose) 50 mls @ 100 mls/hr IVPB Q8H-IV [facility]; Protocol Last Admin: 03/25/19 11:40 Dose: 100 mls/hr Insulin Aspart (Novolog Vial Sliding Scale -) 1 vial SQ HS [facility]; Protocol Last Admin: 03/24/19 21:55 Dose: 6 units Insulin Aspart (Novolog Vial Sliding Scale -) 1 vial SQ TIDAC [facility]; Protocol Last Admin: 03/25/19 06:24 Dose: 8 units Insulin Detemir (Levemir Vial) 24 units SQ DAILY@0700 [facility] Last Admin: 03/25/19 06:23 Dose: 24 units Insulin Detemir (Levemir Vial) 10 units SQ HS [facility] Last Admin: 03/24/19 21:55 Dose: 10 units Lactobacillus Acidophilus (Bacid -) 1 tab PO DAILY [facility] Last Admin: 03/25/19 11:41 Dose: 1 tab Pantoprazole Sodium (Protonix -) 20 mg PO DAILY [facility] Last Admin: 03/25/19 11:41 Dose: 20 mg Valsartan (Diovan -) 40 mg PO DAILY [facility] Last Admin: 03/25/19 11:41 Dose: 40 mg - Objective Vital Signs: Vital Signs Temperature 98 F 03/25/19 05:59 Pulse Rate 82 03/25/19 05:59 Respiratory Rate 18 03/25/19 05:59 Blood Pressure 147/62 03/25/19 05:59 O2 Sat by Pulse Oximetry (%) 98 03/24/19 21:00 Constitutional: Yes: No Distress, Calm Cardiovascular: Yes: S1, S2 Respiratory: Yes: Regular, CTA Bilaterally Gastrointestinal: Yes: Normal Bowel Sounds, Soft Musculoskeletal: Yes: WNL Extremities: Yes: Erythema (resolving), Other Neurological: Yes: Alert, Oriented Psychiatric: Yes: Alert, Oriented Labs: CBC, BMP 03/25/19 07:15 03/25/19 07:15 INR, PTT INR 1.06 (0.83-1.09) 03/22/19 17:45 Assessment/Plan patient coming in with fever and chills with cellulitis of the leg who got one dose of vanco in the er cellulitis of the legs ertyhema fever pain weakness plan will change to oral abx hba1c high
--- NOTE | 2019-03-25 13:08 | PN ---
Progress Note (short form) - Note Progress Note: Denies any complaints Vital Signs Period Temp Pulse Resp BP Sys/Etienne Pulse Ox Last 24 Hr 97.7 F-98.3 F 69-89 18-18 126-147/52-72 98 PE: Awake alert Neck: Supple, No JVD HEENT: EOMI Lungs: CTA CVS: S1S2 Abd: Benign EXt: +Edema, stasis changes, mild erythema CMP Sodium 139 mmol/L (136-145) 03/25/19 07:15 Potassium 4.8 mmol/L (3.5-5.1) 03/25/19 07:15 Chloride 103 mmol/L (98-107) 03/25/19 07:15 Carbon Dioxide 31 mmol/L (21-32) 03/25/19 07:15 Anion Gap 5 MMOL/L (8-16) L 03/25/19 07:15 BUN 50 mg/dL (7-18) H 03/25/19 07:15 Creatinine 2.4 mg/dL (0.55-1.3) H 03/25/19 07:15 Est GFR (CKD-EPI)AfAm 22.30 03/25/19 07:15 Est GFR (CKD-EPI)NonAf 19.24 03/25/19 07:15 POC Glucometer 255 UNITS (80-120) 03/25/19 12:41 Random Glucose 312 mg/dL (74-106) H* 03/25/19 07:15 Hemoglobin A1c % 10.1 % (4.2-6.3) H 03/25/19 07:15 Calcium 8.8 mg/dL (8.5-10.1) 03/25/19 07:15 Total Bilirubin 0.2 mg/dL (0.2-1) 03/25/19 07:15 AST 7 U/L (15-37) L 03/25/19 07:15 ALT 11 U/L (13-61) L 03/25/19 07:15 Alkaline Phosphatase 162 U/L (45-117) H 03/25/19 07:15 Creatine Kinase 72 U/L (26-192) 03/22/19 17:45 Troponin I < 0.02 ng/ml (0.00-0.05) 03/22/19 17:45 B-Natriuretic Peptide 1202.7 pg/ml (5-125) H 03/22/19 17:45 Total Protein 6.0 g/dl (6.4-8.2) L 03/25/19 07:15 Albumin 2.5 g/dl (3.4-5.0) L 03/25/19 07:15 Triglycerides 66 mg/dL (0-150) 03/25/19 07:15 Cholesterol 109 mg/dL (50-200) 03/25/19 07:15 Total LDL Cholesterol 55 mg/dL (5-100) 03/25/19 07:15 HDL Cholesterol 51 mg/dL (40-60) 03/25/19 07:15 TSH 3.22 uIU/ml (0.358-3.74) 03/25/19 07:15 Current Medications Generic Name Dose Route Start Last Admin Trade Name Freq PRN Reason Stop Dose Admin Albuterol/Ipratropium 1 amp 03/23/19 12:12 Duoneb - NEB Q8H PRN [facility] Allopurinol 100 mg 03/24/19 10:00 03/25/19 11:41 Zyloprim - PO 100 mg DAILY [facility] Administration Amlodipine Besylate 5 mg 03/24/19 10:00 03/25/19 11:41 Norvasc - PO 5 mg DAILY [facility] Administration Amoxicillin/Clavulanate Potassium 1 tab 03/25/19 17:30 Augmentin - 500mg Tablet PO BID@0800,1730 [facility] Aspirin 81 mg 03/24/19 10:00 03/25/19 11:41 Ecotrin - PO 81 mg DAILY [facility] Administration Atorvastatin Calcium 10 mg 03/23/19 22:00 03/24/19 21:56 Lipitor - PO 10 mg HS [facility] Administration Carvedilol 12.5 mg 03/23/19 22:00 03/25/19 11:42 Coreg - PO 12.5 mg BID [facility] Administration Clopidogrel Bisulfate 75 mg 03/24/19 10:00 03/25/19 11:40 Plavix - PO 75 mg DAILY [facility] Administration Dextrose 25 gm 03/24/19 16:30 D50w (Vial) - IVPUSH PRN PRN HYPOGLYCEMIA Furosemide 40 mg 03/24/19 10:00 03/25/19 11:41 Lasix - PO 40 mg DAILY [facility] Administration Gabapentin 300 mg 03/23/19 22:00 03/25/19 11:42 Neurontin - PO 300 mg BID [facility] Administration Heparin Sodium (Porcine) 5,000 unit 03/23/19 06:00 03/25/19 05:31 Heparin - SQ 5,000 unit TID [facility] Administration Insulin Aspart 1 vial 03/24/19 22:00 03/24/19 21:55 Novolog Vial Sliding Scale - SQ 6 units HS [facility] Administration Protocol Insulin Aspart 1 vial 03/24/19 16:24 03/25/19 12:52 Novolog Vial Sliding Scale - SQ 8 units TIDAC [facility] Administration Protocol Insulin Detemir 24 units 03/24/19 07:00 03/25/19 06:23 Levemir Vial SQ 24 units DAILY@0700 [facility] Administration Insulin Detemir 10 units 03/24/19 22:00 03/24/19 21:55 Levemir Vial SQ 10 units HS [facility] Administration Lactobacillus Acidophilus 1 tab 03/23/19 12:15 03/25/19 11:41 Bacid - PO 1 tab DAILY [facility] Administration Pantoprazole Sodium 20 mg 03/24/19 10:00 03/25/19 11:41 Protonix - PO 20 mg DAILY [facility] Administration Valsartan 40 mg 03/24/19 10:00 03/25/19 11:41 Diovan - PO 40 mg DAILY [facility] Administration AP: T2DM: Uncontrolled Pt was taking Levemir 12 BID with Novolog 6 units TID with meals when last seen in the office in 12/2017. Pt has h/o wide fluctuations in blood sugar with hypoglycemia secondary to nonadherence to diet. Increase Levemir 24 QAM and 20 at HS BGM QACHS and at 3 AM Increase NOvolog SS coverage Leg Edema Cellulitis: Abx as per ID
[2019-03-25] MEDS: AMOX TR/POT CLAV 500MG/125MG TABLETS (FP) PO SCH (18:43)
[2019-03-25] MEDS: ATORVASTATIN CA 10 MG TABLET (FP) PO SCH (22:25)
[2019-03-26] MEDS: HEPARIN NA (PORCINE) 5,000 UNITS/ML 1ML VIAL SQ SCH ×3 (06:16→21:52)
[2019-03-26] MEDS: INSULIN (LEVEMIR) 100 UNITS/ML UNITS SQ SCH ×2 (06:16→21:53)
[2019-03-26] MEDS: INSULIN SLIDING SCALE (NOVOLOG) 1 VIAL SQ SCH ×3 (06:17→21:53)
[2019-03-26] MEDS ORDERED: INSULIN (LEVEMIR) 100 UNITS/ML UNITS SQ ONE (06:25)
[2019-03-26] MEDS ORDERED: INSULIN (NOVOLOG) ASPART 100 UNITS/ML 10ML VIAL ONE ×2 (06:25→21:29)
[2019-03-26] MEDS: VALSARTAN 40 MG TABLET (FP) PO SCH (10:59)
[2019-03-26] MEDS: LACTOBACILLUS ACIDOPHILUS 1 TABLET PO SCH (10:59)
[2019-03-26] MEDS: AMOX TR/POT CLAV 500MG/125MG TABLETS (FP) PO SCH ×2 (10:59→17:53)
--- NOTE | 2019-03-26 10:59 | PN ---
Progress Note, Physician History of Present Illness: doing better legs doing better - Current Medication List Current Medications: Active Medications Albuterol/Ipratropium (Duoneb -) 1 amp NEB Q8H PRN PRN Reason: ASTHMA Allopurinol (Zyloprim -) 100 mg PO DAILY [facility] Last Admin: 03/25/19 11:41 Dose: 100 mg Amlodipine Besylate (Norvasc -) 5 mg PO DAILY [facility] Last Admin: 03/25/19 11:41 Dose: 5 mg Amoxicillin/Clavulanate Potassium (Augmentin - 500mg Tablet) 1 tab PO BID@0800, 1730 [facility] Last Admin: 03/25/19 18:43 Dose: 1 tab Aspirin (Ecotrin -) 81 mg PO DAILY [facility] Last Admin: 03/25/19 11:41 Dose: 81 mg Atorvastatin Calcium (Lipitor -) 10 mg PO HS [facility] Last Admin: 03/25/19 22:25 Dose: 10 mg Carvedilol (Coreg -) 12.5 mg PO BID [facility] Last Admin: 03/25/19 22:25 Dose: 12.5 mg Clopidogrel Bisulfate (Plavix -) 75 mg PO DAILY [facility] Last Admin: 03/25/19 11:40 Dose: 75 mg Dextrose (D50w (Vial) -) 25 gm IVPUSH PRN PRN PRN Reason: HYPOGLYCEMIA Furosemide (Lasix -) 40 mg PO DAILY [facility] Last Admin: 03/25/19 11:41 Dose: 40 mg Gabapentin (Neurontin -) 300 mg PO BID [facility] Last Admin: 03/25/19 22:26 Dose: 300 mg Heparin Sodium (Porcine) (Heparin -) 5,000 unit SQ TID [facility] Last Admin: 03/26/19 06:16 Dose: 5,000 unit Insulin Aspart (Novolog Vial Sliding Scale -) 1 vial SQ HS [facility]; Protocol Last Admin: 03/25/19 22:50 Dose: 2 units Insulin Aspart (Novolog Vial Sliding Scale -) 1 vial SQ TIDAC [facility]; Protocol Last Admin: 03/26/19 06:17 Dose: 4 units Insulin Detemir (Levemir Vial) 24 units SQ DAILY@0700 [facility] Last Admin: 03/26/19 06:16 Dose: 24 units Insulin Detemir (Levemir Vial) 20 units SQ [facility] Last Admin: 03/25/19 22:50 Dose: 20 units Lactobacillus Acidophilus (Bacid -) 1 tab PO DAILY [facility] Last Admin: 03/25/19 11:41 Dose: 1 tab Pantoprazole Sodium (Protonix -) 20 mg PO DAILY [facility] Last Admin: 03/25/19 11:41 Dose: 20 mg Valsartan (Diovan -) 40 mg PO DAILY [facility] Last Admin: 03/25/19 11:41 Dose: 40 mg - Objective Vital Signs: Vital Signs Temperature 98.2 F 03/26/19 00:00 Pulse Rate 73 03/26/19 00:00 Respiratory Rate 03/26/19 00:00 Blood Pressure 148/68 03/26/19 00:00 O2 Sat by Pulse Oximetry (%) 97 03/25/19 21:00 Constitutional: Yes: No Distress, Calm Cardiovascular: Yes: S1, S2 Respiratory: Yes: Regular, CTA Bilaterally Gastrointestinal: Yes: Normal Bowel Sounds, Soft Musculoskeletal: Yes: WNL Extremities: Yes: Other (erythema resolved) Neurological: Yes: Alert, Oriented Labs: CBC, BMP 03/25/19 07:15 03/25/19 07:15 INR, PTT INR 1.06 (0.83-1.09) 03/22/19 17:45 Assessment/Plan cellulitis of the legs ertyhema fever pain weakness plan continue oral abx leg care
[2019-03-26] MEDS: ASPIRIN COATED 81 MG TABLET.EC PO SCH (11:00)
[2019-03-26] MEDS: PANTOPRAZOLE 20 MG TABLET (FP) PO SCH (11:00)
[2019-03-26] MEDS: FUROSEMIDE 40 MG TABLET (FP) PO SCH (11:00)
[2019-03-26] MEDS: ALLOPURINOL 100 MG TABLET (FP) PO SCH (11:00)
[2019-03-26] MEDS: CLOPIDOGREL BISULFATE 75 MG TABLET (FP) PO SCH (11:00)
[2019-03-26] MEDS: GABAPENTIN 300 MG CAPSULE (FP) PO SCH ×2 (11:03→21:52)
[2019-03-26] MEDS: amLODIPine BESYLATE 5 MG TABLET (FP) PO SCH (11:03)
[2019-03-26] MEDS: CARVEDILOL 12.5 MG TABLET (FP) PO SCH ×2 (11:03→21:53)
--- NOTE | 2019-03-26 12:29 | PN ---
Progress Note (short form) - Note Progress Note: pt seen/ examined comfortable all f/u noted Vital Signs Temp 98.2 F 03/26/19 00:00 Pulse 73 03/26/19 00:00 Resp 20 03/26/19 00:00 BP 148/68 03/26/19 00:00 Pulse Ox 97 03/25/19 21:00 Intake & Output 03/25/19 03/26/19 03/26/19 23:59 11:59 23:59 Intake Total 290 0 Balance 290 0 Intake: IV 0 sl 0 IVPB 50 0 Oral 240 Other: Voiding Method Bedside Commode Bedside Commode # Unmeasured Voids Void 3 Bowel Movement Yes: 1 Active Medications Albuterol/Ipratropium (Duoneb -) 1 amp NEB Q8H PRN PRN Reason: ASTHMA Allopurinol (Zyloprim -) 100 mg PO DAILY [facility] Last Admin: 03/24/19 09:58 Dose: 100 mg Amlodipine Besylate (Norvasc -) 5 mg PO DAILY [facility] Last Admin: 03/24/19 09:58 Dose: 5 mg Aspirin (Ecotrin -) 81 mg PO DAILY [facility] Last Admin: 03/24/19 09:58 Dose: 81 mg Atorvastatin Calcium (Lipitor -) 10 mg PO HS [facility] Last Admin: 03/24/19 21:56 Dose: 10 mg Carvedilol (Coreg -) 12.5 mg PO BID [facility] Last Admin: 03/24/19 21:56 Dose: 12.5 mg Clopidogrel Bisulfate (Plavix -) 75 mg PO DAILY [facility] Last Admin: 03/24/19 09:58 Dose: 75 mg Dextrose (D50w (Vial) -) 25 gm IVPUSH PRN PRN PRN Reason: HYPOGLYCEMIA Furosemide (Lasix -) 40 mg PO DAILY [facility] Last Admin: 03/24/19 09:58 Dose: 40 mg Gabapentin (Neurontin -) 300 mg PO BID [facility] Last Admin: 03/24/19 21:56 Dose: 300 mg Heparin Sodium (Porcine) (Heparin -) 5,000 unit SQ TID [facility] Last Admin: 03/25/19 05:31 Dose: 5,000 unit Piperacillin Sod/Tazobactam (Sod 2.25 gm/ Dextrose) 50 mls @ 100 mls/hr IVPB Q8H-IV [facility]; Protocol Last Admin: 03/25/19 01:55 Dose: 100 mls/hr Insulin Aspart (Novolog Vial Sliding Scale -) 1 vial SQ HS [facility]; Protocol Last Admin: 03/24/19 21:55 Dose: 6 units Insulin Aspart (Novolog Vial Sliding Scale -) 1 vial SQ TIDAC [facility]; Protocol Last Admin: 03/25/19 06:24 Dose: 8 units Insulin Detemir (Levemir Vial) 24 units SQ DAILY@0700 [facility] Last Admin: 03/25/19 06:23 Dose: 24 units Insulin Detemir (Levemir Vial) 10 units SQ HS [facility] Last Admin: 03/24/19 21:55 Dose: 10 units Lactobacillus Acidophilus (Bacid -) 1 tab PO DAILY [facility] Last Admin: 03/24/19 09:58 Dose: 1 tab Pantoprazole Sodium (Protonix -) 20 mg PO DAILY [facility] Last Admin: 03/24/19 09:58 Dose: 20 mg Valsartan (Diovan -) 40 mg PO DAILY [facility] Last Admin: 03/24/19 10:04 Dose: 40 mg CBC, BMP 03/25/19 07:15 03/25/19 07:15 Physical Exam S1 S2 irregular Lungs decreased Abd- soft, NT edema+ Rt leg -erythema and tender and warm -- much better PLAN better creatinine baseline OOB daily PT eval po abx endo consult -- appreciated monitor will follow d/c planning-- Likely tomorrow
--- NOTE | 2019-03-26 15:36 | PN ---
Progress Note (short form) - Note Progress Note: Denies any complaints Vital Signs Period Temp Pulse Resp BP Sys/Etienne Pulse Ox Last 24 Hr 97.9 F-98.5 F 73-90 18-20 112-148/45-73 0-97 PE: Awake alert Neck: Supple, No JVD HEENT: EOMI Lungs: CTA CVS: S1S2 Abd: Benign EXt: +Edema, stasis changes CMP Sodium 139 mmol/L (136-145) 03/25/19 07:15 Potassium 4.8 mmol/L (3.5-5.1) 03/25/19 07:15 Chloride 103 mmol/L (98-107) 03/25/19 07:15 Carbon Dioxide 31 mmol/L (21-32) 03/25/19 07:15 Anion Gap 5 MMOL/L (8-16) L 03/25/19 07:15 BUN 50 mg/dL (7-18) H 03/25/19 07:15 Creatinine 2.4 mg/dL (0.55-1.3) H 03/25/19 07:15 Est GFR (CKD-EPI)AfAm 22.30 03/25/19 07:15 Est GFR (CKD-EPI)NonAf 19.24 03/25/19 07:15 POC Glucometer 125 UNITS (80-120) 03/26/19 11:29 Random Glucose 312 mg/dL (74-106) H* 03/25/19 07:15 Hemoglobin A1c % 10.1 % (4.2-6.3) H 03/25/19 07:15 Calcium 8.8 mg/dL (8.5-10.1) 03/25/19 07:15 Total Bilirubin 0.2 mg/dL (0.2-1) 03/25/19 07:15 AST 7 U/L (15-37) L 03/25/19 07:15 ALT 11 U/L (13-61) L 03/25/19 07:15 Alkaline Phosphatase 162 U/L (45-117) H 03/25/19 07:15 Creatine Kinase 72 U/L (26-192) 03/22/19 17:45 Troponin I < 0.02 ng/ml (0.00-0.05) 03/22/19 17:45 B-Natriuretic Peptide 1202.7 pg/ml (5-125) H 03/22/19 17:45 Total Protein 6.0 g/dl (6.4-8.2) L 03/25/19 07:15 Albumin 2.5 g/dl (3.4-5.0) L 03/25/19 07:15 Triglycerides 66 mg/dL (0-150) 03/25/19 07:15 Cholesterol 109 mg/dL (50-200) 03/25/19 07:15 Total LDL Cholesterol 55 mg/dL (5-100) 03/25/19 07:15 HDL Cholesterol 51 mg/dL (40-60) 03/25/19 07:15 TSH 3.22 uIU/ml (0.358-3.74) 03/25/19 07:15 Current Medications Generic Name Dose Route Start Last Admin Trade Name Freq PRN Reason Stop Dose Admin Albuterol/Ipratropium 1 amp 03/23/19 12:12 Duoneb - NEB Q8H PRN ASTHMA Allopurinol 100 mg 03/24/19 10:00 03/26/19 11:00 Zyloprim - PO 100 mg DAILY [facility] Administration Amlodipine Besylate 5 mg 03/24/19 10:00 03/26/19 11:03 Norvasc - PO 5 mg DAILY [facility] Administration Amoxicillin/Clavulanate Potassium 1 tab 03/25/19 17:30 03/26/19 10:59 Augmentin - 500mg Tablet PO 1 tab BID@0800,1730 [facility] Administration Aspirin 81 mg 03/24/19 10:00 03/26/19 11:00 Ecotrin - PO 81 mg DAILY [facility] Administration Atorvastatin Calcium 10 mg 03/23/19 22:00 03/25/19 22:25 Lipitor - PO 10 mg HS [facility] Administration Carvedilol 12.5 mg 03/23/19 22:00 03/26/19 11:03 Coreg - PO 12.5 mg BID [facility] Administration Clopidogrel Bisulfate 75 mg 03/24/19 10:00 03/26/19 11:00 Plavix - PO 75 mg DAILY [facility] Administration Dextrose 25 gm 03/24/19 16:30 D50w (Vial) - IVPUSH PRN PRN HYPOGLYCEMIA Furosemide 40 mg 03/24/19 10:00 03/26/19 11:00 Lasix - PO 40 mg DAILY [facility] Administration Gabapentin 300 mg 03/23/19 22:00 03/26/19 11:03 Neurontin - PO 300 mg BID [facility] Administration Heparin Sodium (Porcine) 5,000 unit 03/23/19 06:00 03/26/19 06:16 Heparin - SQ 5,000 unit TID [facility] Administration Insulin Aspart 1 vial 03/24/19 22:00 03/25/19 22:50 Novolog Vial Sliding Scale - SQ 2 units HS [facility] Administration Protocol Insulin Aspart 1 vial 03/25/19 16:30 03/26/19 06:17 Novolog Vial Sliding Scale - SQ 4 units TIDAC [facility] Administration Protocol Insulin Detemir 24 units 03/24/19 07:00 03/26/19 06:16 Levemir Vial SQ 24 units DAILY@0700 [facility] Administration Insulin Detemir 20 units 03/25/19 22:00 03/25/19 22:50 Levemir Vial SQ 20 units HS [facility] Administration Lactobacillus Acidophilus 1 tab 03/23/19 12:15 03/26/19 10:59 Bacid - PO 1 tab DAILY [facility] Administration Pantoprazole Sodium 20 mg 03/24/19 10:00 03/26/19 11:00 Protonix - PO 20 mg DAILY [facility] Administration Valsartan 40 mg 03/24/19 10:00 03/26/19 10:59 Diovan - PO 40 mg DAILY [facility] Administration AP: T2DM: Uncontrolled, but improving blood sugar, A1c 10.1 Pt was taking Levemir 12 BID with Novolog 6 units TID with meals when last seen in the office in 12/2017. Pt has h/o wide fluctuations in blood sugar with hypoglycemia secondary to nonadherence to diet. Increase Levemir 24 QAM and 20 at HS BGM QACHS and at 3 AM NOvolog SS coverage Leg Edema Cellulitis: Abx as per ID
[2019-03-26] MEDS: ATORVASTATIN CA 10 MG TABLET (FP) PO SCH (21:53)
[2019-03-27] MEDS: HEPARIN NA (PORCINE) 5,000 UNITS/ML 1ML VIAL SQ SCH ×3 (06:42→21:32)
[2019-03-27] MEDS: INSULIN (LEVEMIR) 100 UNITS/ML UNITS SQ SCH ×2 (06:47→21:33)
[2019-03-27] MEDS: INSULIN SLIDING SCALE (NOVOLOG) 1 VIAL SQ SCH ×4 (06:47→21:33)
[2019-03-27] MEDS ORDERED: INSULIN (LEVEMIR) 100 UNITS/ML UNITS SQ ONE (07:51)
[2019-03-27] MEDS: AMOX TR/POT CLAV 500MG/125MG TABLETS (FP) PO SCH ×2 (09:46→17:57)
[2019-03-27] MEDS: ALLOPURINOL 100 MG TABLET (FP) PO SCH (09:46)
[2019-03-27] MEDS: FUROSEMIDE 40 MG TABLET (FP) PO SCH (09:46)
[2019-03-27] MEDS: PANTOPRAZOLE 20 MG TABLET (FP) PO SCH (09:46)
[2019-03-27] MEDS: CARVEDILOL 12.5 MG TABLET (FP) PO SCH ×2 (09:46→21:32)
[2019-03-27] MEDS: GABAPENTIN 300 MG CAPSULE (FP) PO SCH ×2 (09:46→21:32)
[2019-03-27] MEDS: amLODIPine BESYLATE 5 MG TABLET (FP) PO SCH (09:46)
[2019-03-27] MEDS: VALSARTAN 40 MG TABLET (FP) PO SCH (09:46)
[2019-03-27] MEDS: CLOPIDOGREL BISULFATE 75 MG TABLET (FP) PO SCH (09:46)
[2019-03-27] MEDS: ASPIRIN COATED 81 MG TABLET.EC PO SCH (09:46)
[2019-03-27] MEDS: LACTOBACILLUS ACIDOPHILUS 1 TABLET PO SCH (09:47)
--- NOTE | 2019-03-27 10:15 | PN ---
Progress Note (short form) - Note Progress Note: pt seen/ examined endo f/u noted bgm - still fluctuating Levemir being adjusted pt refusing str Vital Signs Temp 98.7 F 03/27/19 06:49 Pulse 71 03/27/19 06:49 Resp 18 03/27/19 06:49 BP 127/52 L 03/27/19 06:49 Pulse Ox 97 03/26/19 21:00 Intake & Output 03/26/19 03/26/19 03/27/19 11:59 23:59 11:59 Intake Total 250 280 0 Balance 250 280 0 Weight 243 lb 243 lb Intake: IV 0 0 sl 0 0 IVPB 0 0 Oral 250 280 Other: Voiding Method Bedside Commode Bedside Commode Bedside Commode # Unmeasured Voids Void 3 2 Bowel Movement Yes: 1 No Height 5 ft 2 in Body Mass Index (BMI) 44.4 Weight Measurement Method Standing Scale Active Medications Albuterol/Ipratropium (Duoneb -) 1 amp NEB Q8H PRN PRN Reason: ASTHMA Allopurinol (Zyloprim -) 100 mg PO DAILY [facility] Last Admin: 03/27/19 09:46 Dose: 100 mg Amlodipine Besylate (Norvasc -) 5 mg PO DAILY [facility] Last Admin: 03/27/19 09:46 Dose: 5 mg Amoxicillin/Clavulanate Potassium (Augmentin - 500mg Tablet) 1 tab PO BID@0800, 1730 [facility] Last Admin: 03/27/19 09:46 Dose: 1 tab Aspirin (Ecotrin -) 81 mg PO DAILY [facility] Last Admin: 03/27/19 09:46 Dose: 81 mg Atorvastatin Calcium (Lipitor -) 10 mg PO HS [facility] Last Admin: 03/26/19 21:53 Dose: 10 mg Carvedilol (Coreg -) 12.5 mg PO BID [facility] Last Admin: 03/27/19 09:46 Dose: 12.5 mg Clopidogrel Bisulfate (Plavix -) 75 mg PO DAILY [facility] Last Admin: 03/27/19 09:46 Dose: 75 mg Dextrose (D50w (Vial) -) 25 gm IVPUSH PRN PRN PRN Reason: HYPOGLYCEMIA Furosemide (Lasix -) 40 mg PO DAILY [facility] Last Admin: 03/27/19 09:46 Dose: 40 mg Gabapentin (Neurontin -) 300 mg PO BID [facility] Last Admin: 03/27/19 09:46 Dose: 300 mg Heparin Sodium (Porcine) (Heparin -) 5,000 unit SQ TID [facility] Last Admin: 03/27/19 06:42 Dose: 5,000 unit Insulin Aspart (Novolog Vial Sliding Scale -) 1 vial SQ HS [facility]; Protocol Last Admin: 03/26/19 21:53 Dose: 6 units Insulin Aspart (Novolog Vial Sliding Scale -) 1 vial SQ TIDAC [facility]; Protocol Last Admin: 03/27/19 06:47 Dose: 8 units Insulin Detemir (Levemir Vial) 24 units SQ DAILY@0700 [facility] Last Admin: 03/27/19 06:47 Dose: 24 units Insulin Detemir (Levemir Vial) 20 units SQ HS [facility] Last Admin: 03/26/19 21:53 Dose: 20 units Lactobacillus Acidophilus (Bacid -) 1 tab PO DAILY [facility] Last Admin: 03/27/19 09:47 Dose: 1 tab Pantoprazole Sodium (Protonix -) 20 mg PO DAILY [facility] Last Admin: 03/27/19 09:46 Dose: 20 mg Valsartan (Diovan -) 40 mg PO DAILY [facility] Last Admin: 03/27/19 09:46 Dose: 40 mg CBC, BMP 03/25/19 07:15 03/25/19 07:15 Microbiology 03/22/19 22:10 Blood Culture - Preliminary Blood - Peripheral Venous NO GROWTH OBTAINED AFTER 96 HOURS, INCUBATION TO CONTINUE FOR 1 DAYS. 03/22/19 17:45 Blood Culture - Preliminary Blood - Peripheral Venous NO GROWTH OBTAINED AFTER 96 HOURS, INCUBATION TO CONTINUE FOR 1 DAYS. Physical Exam S1 S2 irregular Lungs decreased Abd- soft, NT edema+ Rt leg -erythema and tender and warm -- much better/ resolved PLAN Discussed 'Monitor bgm today-- uncontrolled endo to follow-- Discussed with Dr. Peña if controlled -- will d/c in am will follow Discussed with case manager specialist also.
--- NOTE | 2019-03-27 10:32 | PN ---
Progress Note (short form) - Note Progress Note: Denies any complaints Vital Signs Period Temp Pulse Resp BP Sys/Etienne Pulse Ox Last 24 Hr 97.7 F-98.7 F 71-89 17-20 112-132/52-66 97 PE: Awake alert Neck: Supple, No JVD HEENT: EOMI Lungs: CTA CVS: S1S2 Abd: Benign EXt: +Edema, stasis changes CMP Sodium 139 mmol/L (136-145) 03/25/19 07:15 Potassium 4.8 mmol/L (3.5-5.1) 03/25/19 07:15 Chloride 103 mmol/L (98-107) 03/25/19 07:15 Carbon Dioxide 31 mmol/L (21-32) 03/25/19 07:15 Anion Gap 5 MMOL/L (8-16) L 03/25/19 07:15 BUN 50 mg/dL (7-18) H 03/25/19 07:15 Creatinine 2.4 mg/dL (0.55-1.3) H 03/25/19 07:15 Est GFR (CKD-EPI)AfAm 22.30 03/25/19 07:15 Est GFR (CKD-EPI)NonAf 19.24 03/25/19 07:15 POC Glucometer 248 UNITS (80-120) 03/27/19 06:45 Random Glucose 312 mg/dL (74-106) H* 03/25/19 07:15 Hemoglobin A1c % 10.1 % (4.2-6.3) H 03/25/19 07:15 Calcium 8.8 mg/dL (8.5-10.1) 03/25/19 07:15 Total Bilirubin 0.2 mg/dL (0.2-1) 03/25/19 07:15 AST 7 U/L (15-37) L 03/25/19 07:15 ALT 11 U/L (13-61) L 03/25/19 07:15 Alkaline Phosphatase 162 U/L (45-117) H 03/25/19 07:15 Creatine Kinase 72 U/L (26-192) 03/22/19 17:45 Troponin I < 0.02 ng/ml (0.00-0.05) 03/22/19 17:45 B-Natriuretic Peptide 1202.7 pg/ml (5-125) H 03/22/19 17:45 Total Protein 6.0 g/dl (6.4-8.2) L 03/25/19 07:15 Albumin 2.5 g/dl (3.4-5.0) L 03/25/19 07:15 Triglycerides 66 mg/dL (0-150) 03/25/19 07:15 Cholesterol 109 mg/dL (50-200) 03/25/19 07:15 Total LDL Cholesterol 55 mg/dL (5-100) 03/25/19 07:15 HDL Cholesterol 51 mg/dL (40-60) 03/25/19 07:15 TSH 3.22 uIU/ml (0.358-3.74) 03/25/19 07:15 Current Medications Generic Name Dose Route Start Last Admin Trade Name Freq PRN Reason Stop Dose Admin Albuterol/Ipratropium 1 amp 03/23/19 12:12 Duoneb - NEB Q8H PRN ASTHMA Allopurinol 100 mg 03/24/19 10:00 03/27/19 09:46 Zyloprim - PO 100 mg DAILY [facility] Administration Amlodipine Besylate 5 mg 03/24/19 10:00 03/27/19 09:46 Norvasc - PO 5 mg DAILY [facility] Administration Amoxicillin/Clavulanate Potassium 1 tab 03/25/19 17:30 03/27/19 09:46 Augmentin - 500mg Tablet PO 1 tab BID@0800,1730 [facility] Administration Aspirin 81 mg 03/24/19 10:00 03/27/19 09:46 Ecotrin - PO 81 mg DAILY [facility] Administration Atorvastatin Calcium 10 mg 03/23/19 22:00 03/26/19 21:53 Lipitor - PO 10 mg HS [facility] Administration Carvedilol 12.5 mg 03/23/19 22:00 03/27/19 09:46 Coreg - PO 12.5 mg BID [facility] Administration Clopidogrel Bisulfate 75 mg 03/24/19 10:00 03/27/19 09:46 Plavix - PO 75 mg DAILY [facility] Administration Dextrose 25 gm 03/24/19 16:30 D50w (Vial) - IVPUSH PRN PRN HYPOGLYCEMIA Furosemide 40 mg 03/24/19 10:00 03/27/19 09:46 Lasix - PO 40 mg DAILY [facility] Administration Gabapentin 300 mg 03/23/19 22:00 03/27/19 09:46 Neurontin - PO 300 mg BID [facility] Administration Heparin Sodium (Porcine) 5,000 unit 03/23/19 06:00 03/27/19 06:42 Heparin - SQ 5,000 unit TID [facility] Administration Insulin Aspart 1 vial 03/24/19 22:00 03/26/19 21:53 Novolog Vial Sliding Scale - SQ 6 units HS [facility] Administration Protocol Insulin Aspart 1 vial 03/25/19 16:30 03/27/19 06:47 Novolog Vial Sliding Scale - SQ 8 units TIDAC [facility] Administration Protocol Insulin Detemir 24 units 03/24/19 07:00 03/27/19 06:47 Levemir Vial SQ 24 units DAILY@0700 [facility] Administration Insulin Detemir 20 units 03/25/19 22:00 03/26/19 21:53 Levemir Vial SQ 20 units HS [facility] Administration Lactobacillus Acidophilus 1 tab 03/23/19 12:15 03/27/19 09:47 Bacid - PO 1 tab DAILY [facility] Administration Pantoprazole Sodium 20 mg 03/24/19 10:00 03/27/19 09:46 Protonix - PO 20 mg DAILY [facility] Administration Valsartan 40 mg 03/24/19 10:00 03/27/19 09:46 Diovan - PO 40 mg DAILY [facility] Administration AP: T2DM: Uncontrolled, but improving blood sugar, A1c 10.1 Pt was taking Levemir 12 BID with Novolog 6 units TID with meals when last seen in the office in 12/2017. Pt has h/o wide fluctuations in blood sugar with hypoglycemia secondary to nonadherence to diet. Increase Levemir 24 QAM and 22 at HS BGM QACHS and at 3 AM Increase NOvolog SS coverage Leg Edema Cellulitis: Abx as per ID
--- NOTE | 2019-03-27 11:26 | PN ---
Progress Note, Physician History of Present Illness: patient stable no new issues - Current Medication List Current Medications: Active Medications Albuterol/Ipratropium (Duoneb -) 1 amp NEB Q8H PRN PRN Reason: ASTHMA Allopurinol (Zyloprim -) 100 mg PO DAILY [facility] Last Admin: 03/27/19 09:46 Dose: 100 mg Amlodipine Besylate (Norvasc -) 5 mg PO DAILY [facility] Last Admin: 03/27/19 09:46 Dose: 5 mg Amoxicillin/Clavulanate Potassium (Augmentin - 500mg Tablet) 1 tab PO BID@0800, 1730 [facility] Last Admin: 03/27/19 09:46 Dose: 1 tab Aspirin (Ecotrin -) 81 mg PO DAILY [facility] Last Admin: 03/27/19 09:46 Dose: 81 mg Atorvastatin Calcium (Lipitor -) 10 mg PO HS [facility] Last Admin: 03/26/19 21:53 Dose: 10 mg Carvedilol (Coreg -) 12.5 mg PO BID [facility] Last Admin: 03/27/19 09:46 Dose: 12.5 mg Clopidogrel Bisulfate (Plavix -) 75 mg PO DAILY [facility] Last Admin: 03/27/19 09:46 Dose: 75 mg Dextrose (D50w (Vial) -) 25 gm IVPUSH PRN PRN PRN Reason: HYPOGLYCEMIA Furosemide (Lasix -) 40 mg PO DAILY [facility] Last Admin: 03/27/19 09:46 Dose: 40 mg Gabapentin (Neurontin -) 300 mg PO BID [facility] Last Admin: 03/27/19 09:46 Dose: 300 mg Heparin Sodium (Porcine) (Heparin -) 5,000 unit SQ TID [facility] Last Admin: 03/27/19 06:42 Dose: 5,000 unit Insulin Aspart (Novolog Vial Sliding Scale -) 1 vial SQ HS [facility]; Protocol Last Admin: 03/26/19 21:53 Dose: 6 units Insulin Aspart (Novolog Vial Sliding Scale -) 1 vial SQ TIDAC [facility]; Protocol Insulin Detemir (Levemir Vial) 24 units SQ DAILY@0700 [facility] Last Admin: 03/27/19 06:47 Dose: 24 units Insulin Detemir (Levemir Vial) 22 units SQ HS [facility] Lactobacillus Acidophilus (Bacid -) 1 tab PO DAILY [facility] Last Admin: 03/27/19 09:47 Dose: 1 tab Pantoprazole Sodium (Protonix -) 20 mg PO DAILY [facility] Last Admin: 03/27/19 09:46 Dose: 20 mg Valsartan (Diovan -) 40 mg PO DAILY [facility] Last Admin: 03/27/19 09:46 Dose: 40 mg - Objective Vital Signs: Vital Signs Temperature 98.2 F 03/27/19 10:00 Pulse Rate 76 03/27/19 10:00 Respiratory Rate 18 03/27/19 10:00 Blood Pressure 126/62 03/27/19 10:00 O2 Sat by Pulse Oximetry (%) 99 03/27/19 09:00 Constitutional: Yes: No Distress, Calm Cardiovascular: Yes: Regular Rate and Rhythm Respiratory: Yes: Regular, CTA Bilaterally Gastrointestinal: Yes: Normal Bowel Sounds, Soft Musculoskeletal: Yes: WNL Extremities: Yes: Other Neurological: Yes: Alert, Oriented Psychiatric: Yes: Alert, Oriented Labs: CBC, BMP 03/25/19 07:15 03/25/19 07:15 INR, PTT INR 1.06 (0.83-1.09) 03/22/19 17:45 Assessment/Plan cellulitis of the legs ertyhema fever pain weakness plan continue oral abx leg care
[2019-03-27] MEDS ORDERED: INSULIN (NOVOLOG) ASPART 100 UNITS/ML 10ML VIAL ONE (21:12)
[2019-03-27] MEDS: ATORVASTATIN CA 10 MG TABLET (FP) PO SCH (21:32)
[2019-03-28] MEDS: HEPARIN NA (PORCINE) 5,000 UNITS/ML 1ML VIAL SQ SCH ×3 (06:00→21:46)
[2019-03-28] MEDS: INSULIN (LEVEMIR) 100 UNITS/ML UNITS SQ SCH ×2 (06:02→21:47)
[2019-03-28] MEDS: INSULIN SLIDING SCALE (NOVOLOG) 1 VIAL SQ SCH ×4 (06:03→21:47)
--- NOTE | 2019-03-28 09:05 | PN ---
Progress Note (short form) - Note Progress Note: Feeels good Denies any complaints Vital Signs Period Temp Pulse Resp BP Sys/Etienne Pulse Ox Last 24 Hr 98.0 F-98.9 F 76-79 18-18 110-131/56-69 99 PE: Awake alert Neck: Supple, No JVD HEENT: EOMI Lungs: CTA CVS: S1S2 Abd: Benign EXt: +Edema, stasis changes CMP Sodium 139 mmol/L (136-145) 03/25/19 07:15 Potassium 4.8 mmol/L (3.5-5.1) 03/25/19 07:15 Chloride 103 mmol/L (98-107) 03/25/19 07:15 Carbon Dioxide 31 mmol/L (21-32) 03/25/19 07:15 Anion Gap 5 MMOL/L (8-16) L 03/25/19 07:15 BUN 50 mg/dL (7-18) H 03/25/19 07:15 Creatinine 2.4 mg/dL (0.55-1.3) H 03/25/19 07:15 Est GFR (CKD-EPI)AfAm 22.30 03/25/19 07:15 Est GFR (CKD-EPI)NonAf 19.24 03/25/19 07:15 POC Glucometer 213 UNITS (80-120) 03/28/19 05:59 Random Glucose 312 mg/dL (74-106) H* 03/25/19 07:15 Hemoglobin A1c % 10.1 % (4.2-6.3) H 03/25/19 07:15 Calcium 8.8 mg/dL (8.5-10.1) 03/25/19 07:15 Total Bilirubin 0.2 mg/dL (0.2-1) 03/25/19 07:15 AST 7 U/L (15-37) L 03/25/19 07:15 ALT 11 U/L (13-61) L 03/25/19 07:15 Alkaline Phosphatase 162 U/L (45-117) H 03/25/19 07:15 Creatine Kinase 72 U/L (26-192) 03/22/19 17:45 Troponin I < 0.02 ng/ml (0.00-0.05) 03/22/19 17:45 B-Natriuretic Peptide 1202.7 pg/ml (5-125) H 03/22/19 17:45 Total Protein 6.0 g/dl (6.4-8.2) L 03/25/19 07:15 Albumin 2.5 g/dl (3.4-5.0) L 03/25/19 07:15 Triglycerides 66 mg/dL (0-150) 03/25/19 07:15 Cholesterol 109 mg/dL (50-200) 03/25/19 07:15 Total LDL Cholesterol 55 mg/dL (5-100) 03/25/19 07:15 HDL Cholesterol 51 mg/dL (40-60) 03/25/19 07:15 TSH 3.22 uIU/ml (0.358-3.74) 03/25/19 07:15 Current Medications Generic Name Dose Route Start Last Admin Trade Name Freq PRN Reason Stop Dose Admin Albuterol/Ipratropium 1 amp 03/23/19 12:12 Duoneb - NEB Q8H PRN ASTHMA Allopurinol 100 mg 03/24/19 10:00 03/27/19 09:46 Zyloprim - PO 100 mg DAILY MARTIN Administration Amlodipine Besylate 5 mg 03/24/19 10:00 03/27/19 09:46 Norvasc - PO 5 mg DAILY MARTIN Administration Amoxicillin/Clavulanate Potassium 1 tab 03/25/19 17:30 03/27/19 17:57 Augmentin - 500mg Tablet PO 1 tab BID@0800,1730 MARTIN Administration Aspirin 81 mg 03/24/19 10:00 03/27/19 09:46 Ecotrin - PO 81 mg DAILY MARTIN Administration Atorvastatin Calcium 10 mg 03/23/19 22:00 03/27/19 21:32 Lipitor - PO 10 mg HS MARTIN Administration Carvedilol 12.5 mg 03/23/19 22:00 03/27/19 21:32 Coreg - PO 12.5 mg BID MARTIN Administration Clopidogrel Bisulfate 75 mg 03/24/19 10:00 03/27/19 09:46 Plavix - PO 75 mg DAILY MARTIN Administration Dextrose 25 gm 03/24/19 16:30 D50w (Vial) - IVPUSH PRN PRN HYPOGLYCEMIA Furosemide 40 mg 03/24/19 10:00 03/27/19 09:46 Lasix - PO 40 mg DAILY MARTIN Administration Gabapentin 300 mg 03/23/19 22:00 03/27/19 21:32 Neurontin - PO 300 mg BID MARTIN Administration Heparin Sodium (Porcine) 5,000 unit 03/23/19 06:00 03/28/19 06:00 Heparin - SQ 5,000 unit TID MARTIN Administration Insulin Aspart 1 vial 03/24/19 22:00 03/27/19 21:33 Novolog Vial Sliding Scale - SQ Not Given HS [facility] Protocol Insulin Aspart 1 vial 03/27/19 10:34 03/28/19 06:03 Novolog Vial Sliding Scale - SQ 10 units TIDAC MARTIN Administration Protocol Insulin Detemir 24 units 03/24/19 07:00 03/28/19 06:02 Levemir Vial SQ 24 units DAILY@0700 MARTIN Administration Insulin Detemir 22 units 03/27/19 22:00 03/27/19 21:33 Levemir Vial SQ 22 units HS MARTIN Administration Lactobacillus Acidophilus 1 tab 03/23/19 12:15 03/27/19 09:47 Bacid - PO 1 tab DAILY MARTIN Administration Pantoprazole Sodium 20 mg 03/24/19 10:00 03/27/19 09:46 Protonix - PO 20 mg DAILY MARTIN Administration Valsartan 40 mg 03/24/19 10:00 03/27/19 09:46 Diovan - PO 40 mg DAILY MARTIN Administration AP: T2DM: Uncontrolled, but improving blood sugar, A1c 10.1 Pt was taking Levemir 12 BID with Novolog 6 units TID with meals when last seen in the office in 12/2017. Pt has h/o wide fluctuations in blood sugar with hypoglycemia secondary to nonadherence to diet. Levemir 24 QAM and 22 at HS BGM QACHS and at 3 AM NOvolog SS coverage Leg Edema Cellulitis: Abx as per ID
[2019-03-28] MEDS: VALSARTAN 40 MG TABLET (FP) PO SCH (09:44)
[2019-03-28] MEDS: PANTOPRAZOLE 20 MG TABLET (FP) PO SCH (09:44)
[2019-03-28] MEDS: ASPIRIN COATED 81 MG TABLET.EC PO SCH (09:44)
[2019-03-28] MEDS: LACTOBACILLUS ACIDOPHILUS 1 TABLET PO SCH (09:44)
[2019-03-28] MEDS: ALLOPURINOL 100 MG TABLET (FP) PO SCH (09:44)
[2019-03-28] MEDS: CARVEDILOL 12.5 MG TABLET (FP) PO SCH ×2 (09:45→21:46)
[2019-03-28] MEDS: AMOX TR/POT CLAV 500MG/125MG TABLETS (FP) PO SCH ×2 (09:45→16:36)
[2019-03-28] MEDS: FUROSEMIDE 40 MG TABLET (FP) PO SCH (09:45)
[2019-03-28] MEDS: CLOPIDOGREL BISULFATE 75 MG TABLET (FP) PO SCH (09:45)
[2019-03-28] MEDS: amLODIPine BESYLATE 5 MG TABLET (FP) PO SCH (09:45)
[2019-03-28] MEDS: GABAPENTIN 300 MG CAPSULE (FP) PO SCH ×2 (09:45→21:46)
--- NOTE | 2019-03-28 11:36 | DS ---
Physical Examination Vital Signs: Vital Signs Temperature 98.5 F 03/28/19 06:00 Pulse Rate 79 03/28/19 06:00 Respiratory Rate 18 03/28/19 06:00 Blood Pressure 110/62 03/28/19 06:00 O2 Sat by Pulse Oximetry (%) 99 03/27/19 21:00 Constitutional: Yes: No Distress, Calm Cardiovascular: Yes: Regular Rate and Rhythm Respiratory: Yes: CTA Bilaterally Gastrointestinal: Yes: Normal Bowel Sounds, Soft. No: Tenderness Extremities: Yes: Erythema (decreased right leg) Edema: Yes Labs: CBC, BMP 03/25/19 07:15 03/25/19 07:15 Discharge Summary Reason For Visit: CELLULITIS Current Active Problems Cellulitis (Acute) Pedal edema (Acute) Hospital Course: HISTORY - Admission Chief Complaint: B/L LE Edema History of Present Illness: This is a 73 y/o woman from home. who presents to the ED with increased swelling and redness to both legs x 4 days. Patient is Creole speaking. [employer] used. #[id number]. Patient reports having increased pain and swelling to both legs. patient reports having fever and chills. Patient denies cough, SOB, CP, palpitations, AP, N/V/D, constipation, dysuria. HOSPITAL COURSE Pt evaluated by me , ID and Endocrinology She was started on IV antibiotics for right leg cellulitis She was evaluated by endocrinology for uncontrolled sugars Levemir adjusted BGM are better Pt will need VNS for nutrition education, diabetes education, meds She is stable for dc home on PO Augmentin x 5 days Condition: Fair - Instructions Diet, Activity, Other Instructions: levemir 24 units in AM and 22 units in HS Continue Augmentin for 5 more days Referrals: Lily Peña MD [Staff Physician] - Iesha Combs MD [Staff Physician] - Disposition: HOME - Home Medications Comprehensive Discharge Medication List: Ambulatory Orders Allopurinol [Zyloprim -] 100 mg PO DAILY 02/24/16 Omeprazole 20 mg PO DAILY 10/02/16 Cholecalciferol (Vitamin D3) [Vitamin D3] 1,000 unit PO DAILY 05/24/18 Furosemide [Lasix -] 40 mg PO DAILY 05/24/18 Pravastatin Sodium 20 mg PO HS 05/24/18 Insulin (Levemir) [Levemir Vial] 24 unit SQ DAILY@0700 10/13/18 Aspirin Coated [Ecotrin -] 81 mg PO DAILY tablet.ec 01/30/19 Carvedilol [Coreg -] 12.5 mg PO BID #60 tablet 01/30/19 Amlodipine Besylate 5 mg PO DAILY 03/14/19 Clopidogrel Bisulfate [Clopidogrel] 75 mg PO DAILY 03/14/19 Albuterol 2.5/Ipratropium 0.5 [Duoneb -] 1 amp NEB RTID amp 03/20/19 Atorvastatin Ca [Lipitor] 10 mg PO HS tablet 03/20/19 Valsartan [Diovan] 40 mg PO DAILY tablet 03/20/19 Amox-Tr/K Cl [Augmentin 500-125mg Tablet -] 1 tab PO BID@0800,1730 #10 tablet Gabapentin [Neurontin -] 300 mg PO BID #60 capsule 03/28/19 Insulin (Levemir) [Levemir Vial] 22 units SQ HS #60 units 03/28/19 Insulin Aspart [Novolog] 5 unit SQ TID #0 unit 03/28/19 Lactobacillus Acidophilus [Bacid -] 1 tab PO DAILY #30 tab 03/28/19
--- NOTE | 2019-03-28 11:51 | PN ---
Progress Note, Physician - Current Medication List Current Medications: Active Medications Albuterol/Ipratropium (Duoneb -) 1 amp NEB Q8H PRN PRN Reason: ASTHMA Allopurinol (Zyloprim -) 100 mg PO DAILY [facility] Last Admin: 03/28/19 09:44 Dose: 100 mg Amlodipine Besylate (Norvasc -) 5 mg PO DAILY [facility] Last Admin: 03/28/19 09:45 Dose: 5 mg Amoxicillin/Clavulanate Potassium (Augmentin - 500mg Tablet) 1 tab PO BID@0800, 1730 [facility] Last Admin: 03/28/19 09:45 Dose: 1 tab Aspirin (Ecotrin -) 81 mg PO DAILY [facility] Last Admin: 03/28/19 09:44 Dose: 81 mg Atorvastatin Calcium (Lipitor -) 10 mg PO HS [facility] Last Admin: 03/27/19 21:32 Dose: 10 mg Carvedilol (Coreg -) 12.5 mg PO BID [facility] Last Admin: 03/28/19 09:45 Dose: 12.5 mg Clopidogrel Bisulfate (Plavix -) 75 mg PO DAILY [facility] Last Admin: 03/28/19 09:45 Dose: 75 mg Dextrose (D50w (Vial) -) 25 gm IVPUSH PRN PRN PRN Reason: HYPOGLYCEMIA Furosemide (Lasix -) 40 mg PO DAILY [facility] Last Admin: 03/28/19 09:45 Dose: 40 mg Gabapentin (Neurontin -) 300 mg PO BID [facility] Last Admin: 03/28/19 09:45 Dose: 300 mg Heparin Sodium (Porcine) (Heparin -) 5,000 unit SQ TID [facility] Last Admin: 03/28/19 06:00 Dose: 5,000 unit Insulin Aspart (Novolog Vial Sliding Scale -) 1 vial SQ [facility]; Protocol Last Admin: 03/27/19 21:33 Dose: Not Given Insulin Aspart (Novolog Vial Sliding Scale -) 1 vial SQ TIDAC [facility]; Protocol Last Admin: 03/28/19 11:20 Dose: 8 units Insulin Detemir (Levemir Vial) 24 units SQ DAILY@0700 [facility] Last Admin: 03/28/19 06:02 Dose: 24 units Insulin Detemir (Levemir Vial) 22 units SQ [facility] Last Admin: 03/27/19 21:33 Dose: 22 units Lactobacillus Acidophilus (Bacid -) 1 tab PO DAILY [facility] Last Admin: 03/28/19 09:44 Dose: 1 tab Pantoprazole Sodium (Protonix -) 20 mg PO DAILY [facility] Last Admin: 03/28/19 09:44 Dose: 20 mg Valsartan (Diovan -) 40 mg PO DAILY [facility] Last Admin: 03/28/19 09:44 Dose: 40 mg - Objective Vital Signs: Vital Signs Temperature 98.5 F 03/28/19 06:00 Pulse Rate 79 03/28/19 06:00 Respiratory Rate 18 03/28/19 06:00 Blood Pressure 110/62 03/28/19 06:00 O2 Sat by Pulse Oximetry (%) 99 03/27/19 21:00 Labs: CBC, BMP 03/25/19 07:15 03/25/19 07:15 INR, PTT INR 1.06 (0.83-1.09) 03/22/19 17:45
[2019-03-28] MEDS ORDERED: INSULIN (NOVOLOG) ASPART 100 UNITS/ML 10ML VIAL ONE (21:21)
[2019-03-28] MEDS: ATORVASTATIN CA 10 MG TABLET (FP) PO SCH (21:46)
[2019-03-29] MEDS: HEPARIN NA (PORCINE) 5,000 UNITS/ML 1ML VIAL SQ SCH (06:16)
[2019-03-29] MEDS: INSULIN (LEVEMIR) 100 UNITS/ML UNITS SQ SCH (06:17)
[2019-03-29] MEDS: INSULIN SLIDING SCALE (NOVOLOG) 1 VIAL SQ SCH (06:17)
[2019-03-29] MEDS: PANTOPRAZOLE 20 MG TABLET (FP) PO SCH (09:01)
[2019-03-29] MEDS: amLODIPine BESYLATE 5 MG TABLET (FP) PO SCH (09:01)
[2019-03-29] MEDS: LACTOBACILLUS ACIDOPHILUS 1 TABLET PO SCH (09:01)
[2019-03-29] MEDS: CARVEDILOL 12.5 MG TABLET (FP) PO SCH (09:01)
[2019-03-29] MEDS: VALSARTAN 40 MG TABLET (FP) PO SCH (09:01)
[2019-03-29] MEDS: ALLOPURINOL 100 MG TABLET (FP) PO SCH (09:01)
[2019-03-29] MEDS: FUROSEMIDE 40 MG TABLET (FP) PO SCH (09:01)
[2019-03-29] MEDS: CLOPIDOGREL BISULFATE 75 MG TABLET (FP) PO SCH (09:01)
[2019-03-29] MEDS: AMOX TR/POT CLAV 500MG/125MG TABLETS (FP) PO SCH (09:02)
[2019-03-29] MEDS: GABAPENTIN 300 MG CAPSULE (FP) PO SCH (09:02)
[2019-03-29] MEDS: ASPIRIN COATED 81 MG TABLET.EC PO SCH (09:02)
--- NOTE | 2019-03-29 09:12 | PN ---
Progress Note (short form) - Note Progress Note: Celi atwood Denies any complaints Being discharged home today Vital Signs Period Temp Pulse Resp BP Sys/Etienne Pulse Ox Last 24 Hr 97.4 F-98.1 F 78-88 18-18 116-137/52-69 96 PE: Awake alert Neck: Supple, No JVD HEENT: EOMI Lungs: CTA CVS: S1S2 Abd: Benign EXt: +Edema, stasis changes CMP Sodium 139 mmol/L (136-145) 03/25/19 07:15 Potassium 4.8 mmol/L (3.5-5.1) 03/25/19 07:15 Chloride 103 mmol/L (98-107) 03/25/19 07:15 Carbon Dioxide 31 mmol/L (21-32) 03/25/19 07:15 Anion Gap 5 MMOL/L (8-16) L 03/25/19 07:15 BUN 50 mg/dL (7-18) H 03/25/19 07:15 Creatinine 2.4 mg/dL (0.55-1.3) H 03/25/19 07:15 Est GFR (CKD-EPI)AfAm 22.30 03/25/19 07:15 Est GFR (CKD-EPI)NonAf 19.24 03/25/19 07:15 POC Glucometer 247 UNITS (80-120) 03/29/19 06:15 Random Glucose 312 mg/dL (74-106) H* 03/25/19 07:15 Hemoglobin A1c % 10.1 % (4.2-6.3) H 03/25/19 07:15 Calcium 8.8 mg/dL (8.5-10.1) 03/25/19 07:15 Total Bilirubin 0.2 mg/dL (0.2-1) 03/25/19 07:15 AST 7 U/L (15-37) L 03/25/19 07:15 ALT 11 U/L (13-61) L 03/25/19 07:15 Alkaline Phosphatase 162 U/L (45-117) H 03/25/19 07:15 Creatine Kinase 72 U/L (26-192) 03/22/19 17:45 Troponin I < 0.02 ng/ml (0.00-0.05) 03/22/19 17:45 B-Natriuretic Peptide 1202.7 pg/ml (5-125) H 03/22/19 17:45 Total Protein 6.0 g/dl (6.4-8.2) L 03/25/19 07:15 Albumin 2.5 g/dl (3.4-5.0) L 03/25/19 07:15 Triglycerides 66 mg/dL (0-150) 03/25/19 07:15 Cholesterol 109 mg/dL (50-200) 03/25/19 07:15 Total LDL Cholesterol 55 mg/dL (5-100) 03/25/19 07:15 HDL Cholesterol 51 mg/dL (40-60) 03/25/19 07:15 TSH 3.22 uIU/ml (0.358-3.74) 03/25/19 07:15 Current Medications Generic Name Dose Route Start Last Admin Trade Name Freq PRN Reason Stop Dose Admin Allopurinol 100 mg 03/24/19 10:00 03/29/19 09:01 Zyloprim - PO 100 mg DAILY MARTIN Administration Amlodipine Besylate 5 mg 03/24/19 10:00 03/29/19 09:01 Norvasc - PO 5 mg DAILY MARTIN Administration Amoxicillin/Clavulanate Potassium 1 tab 03/25/19 17:30 03/29/19 09:02 Augmentin - 500mg Tablet PO 1 tab BID@0800,1730 MARTIN Administration Aspirin 81 mg 03/24/19 10:00 03/29/19 09:02 Ecotrin - PO 81 mg DAILY MARTIN Administration Atorvastatin Calcium 10 mg 03/23/19 22:00 03/28/19 21:46 Lipitor - PO 10 mg HS MARTIN Administration Carvedilol 12.5 mg 03/23/19 22:00 03/29/19 09:01 Coreg - PO 12.5 mg BID MARTIN Administration Clopidogrel Bisulfate 75 mg 03/24/19 10:00 03/29/19 09:01 Plavix - PO 75 mg DAILY MARTIN Administration Dextrose 25 gm 03/24/19 16:30 D50w (Vial) - IVPUSH PRN PRN HYPOGLYCEMIA Furosemide 40 mg 03/24/19 10:00 03/29/19 09:01 Lasix - PO 40 mg DAILY MARTIN Administration Gabapentin 300 mg 03/23/19 22:00 03/29/19 09:02 Neurontin - PO 300 mg BID MARTIN Administration Heparin Sodium (Porcine) 5,000 unit 03/23/19 06:00 03/29/19 06:16 Heparin - SQ 5,000 unit TID MARTIN Administration Insulin Aspart 1 vial 03/24/19 22:00 03/28/19 21:47 Novolog Vial Sliding Scale - SQ 2 units HS MARTIN Administration Protocol Insulin Aspart 1 vial 03/27/19 10:34 03/29/19 06:17 Novolog Vial Sliding Scale - SQ 10 units TIDAC MARTIN Administration Protocol Insulin Detemir 24 units 03/24/19 07:00 03/29/19 06:17 Levemir Vial SQ 24 units DAILY@0700 MARTIN Administration Insulin Detemir 22 units 03/27/19 22:00 03/28/19 21:47 Levemir Vial SQ 22 units HS MARTIN Administration Lactobacillus Acidophilus 1 tab 03/23/19 12:15 03/29/19 09:01 Bacid - PO 1 tab DAILY MARTIN Administration Pantoprazole Sodium 20 mg 03/24/19 10:00 03/29/19 09:01 Protonix - PO 20 mg DAILY MARTIN Administration Valsartan 40 mg 03/24/19 10:00 03/29/19 09:01 Diovan - PO 40 mg DAILY MARTIN Administration AP: T2DM: Uncontrolled, but improving blood sugar, A1c 10.1 Pt was taking Levemir 12 BID with Novolog 6 units TID with meals when last seen in the office in 12/2017. Pt has h/o wide fluctuations in blood sugar with hypoglycemia secondary to nonadherence to diet. Levemir 24 QAM and 22 at HS BGM QACHS and at 3 AM NOvolog SS coverage Leg Edema Cellulitis: Abx as per ID
[2019-03-29 10:18] VITALS: BP 118/65; PULSE 86; TEMP 97.6
== END 2019-03-29 11:17 | disposition home or self-care (01) | DRG 603 ==
LOC: JER 16:15 → JERBED 23:19 → J7W 03-23 02:34
PROVIDERS: ADMIT Internal Medicine; ATTEND Internal Medicine
DX: L03.115 Cellulitis of right lower limb (principal); I13.0 Hypertensive heart and chronic kidney disease with heart failure and stage 1 through stage 4 chronic kidney disease, or unspecified chronic kidney disease; I50.42 Chronic combined systolic (congestive) and diastolic (congestive) heart failure; Z68.41 Body mass index [BMI] 40.0-44.9, adult; N18.9 Chronic kidney disease, unspecified; D50.9 Iron deficiency anemia, unspecified; E78.5 Hyperlipidemia, unspecified; J45.909 Unspecified asthma, uncomplicated; I25.10 Atherosclerotic heart disease of native coronary artery without angina pectoris; K21.9 Gastro-esophageal reflux disease without esophagitis; M19.90 Unspecified osteoarthritis, unspecified site; Z95.810 Presence of automatic (implantable) cardiac defibrillator; E66.9 Obesity, unspecified; M10.9 Gout, unspecified; Z79.4 Long term (current) use of insulin; L03.116 Cellulitis of left lower limb; E11.65 Type 2 diabetes mellitus with hyperglycemia; Z91.11 Patient's noncompliance with dietary regimen
CPT/HCPCS: 36415; 71045-TC-FY; 80048; 80053; 80061; 82550; 82962; 83036; 83721; 83880; 84443; 84484; 85025; 85610; 87040; 93005; 93010; 93970-TC; 97116-GP; 97161-GP; 99281-25; J1644

== ENCOUNTER 2019-05-06 10:25 | Inpatient (IN) | payer OTHER ==
[2019-05-06 11:02] VITALS: BMI 44.6
--- NOTE | 2019-05-06 11:49 | PDOC ---
History of Present Illness - General Chief Complaint: Pain Stated Complaint: LEG PAIN Time Seen by Provider: 05/06/19 11:22 - History of Present Illness Initial Comments: The pt is a 73F w/ a history of HTN, s/p pacemaker, venous stasis who presents for evaluation of 8 days of cough w/ generalized body aches and chills. History is limited due to patient participation. She endorses fevers. Denies vomiting, diarrhea, abdominal pain. Patient noted to have bed bugs by EMS s/p decon Interpretation services used: Lizz [id number] 05/06/19 11:49 Past History - Past Medical History Allergies/Adverse Reactions: Allergies Allergy/AdvReac Type Severity Reaction Status Date / Time No Known Allergies Allergy Verified 05/06/19 11:05 Home Medications: Ambulatory Orders Allopurinol [Zyloprim -] 100 mg PO DAILY 02/24/16 Omeprazole 20 mg PO DAILY 10/02/16 Cholecalciferol (Vitamin D3) [Vitamin D3] 1,000 unit PO DAILY 05/24/18 Furosemide [Lasix -] 40 mg PO DAILY 05/24/18 Pravastatin Sodium 20 mg PO HS 05/24/18 Insulin (Levemir) [Levemir Vial] 24 unit SQ DAILY@0700 10/13/18 Aspirin Coated [Ecotrin -] 81 mg PO DAILY tablet.ec 01/30/19 Carvedilol [Coreg -] 12.5 mg PO BID #60 tablet 01/30/19 Amlodipine Besylate 5 mg PO DAILY 03/14/19 Clopidogrel Bisulfate [Clopidogrel] 75 mg PO DAILY 03/14/19 Albuterol 2.5/Ipratropium 0.5 [Duoneb -] 1 amp NEB RTID amp 03/20/19 Atorvastatin Ca [Lipitor] 10 mg PO HS tablet 03/20/19 Valsartan [Diovan] 40 mg PO DAILY tablet 03/20/19 Gabapentin [Neurontin -] 300 mg PO BID #60 capsule 03/28/19 Insulin (Levemir) [Levemir Vial] 22 units SQ HS #60 units 03/28/19 Insulin Aspart [Novolog] 5 unit SQ TID #0 unit 03/28/19 Lactobacillus Acidophilus [Bacid -] 1 tab PO DAILY #30 tab 03/28/19 Anemia: Yes (ISH) Asthma: Yes Cancer: No Cardiac Disorders: Yes (HCVD, chest pain syndrome) CVA: No COPD: No CHF: Yes Dementia: No Diabetes: Yes (GERD) GI Disorders: No Disorders: Yes (Renal Insuffiency) HTN: Yes Hypercholesterolemia: Yes Liver Disease: No Psychiatric Problems: Yes (anxiety) Seizures: No Thyroid Disease: No - Surgical History Abdominal Surgery: No Appendectomy: No Cardiac Surgery: Yes (STENTS/PPM 2007) Cholecystectomy: No Lung Surgery: No Neurologic Surgery: No Orthopedic Surgery: No - Reproductive History Cervical CA: No Dysfunctional Uterine Bleeding: No Ectopic : No Endometrial CA: No Polycystic Ovaries: No Therapeutic (s) & number: No Tubal Ligation: No - Immunization History Td Vaccination: Yes TDAP Vaccination: Yes Immunization Up to Date: Yes - Suicide/Smoking/Psychosocial Hx Smoking Status: No Smoking History: Unknown if ever smoked Have you smoked in the past 12 months: No Number of Cigarettes Smoked Daily: 0 Hx Alcohol Use: No Drug/Substance Use Hx: No Substance Use Type: None Hx Substance Use Treatment: No Review of Systems - Review of Systems Able to Perform ROS?: Yes Comments:: GENERAL/CONSTITUTIONAL: +subjective fevers CARDIOVASCULAR: No chest pain RESPIRATORY: +cough GASTROINTESTINAL: No vomiting, diarrhea MUSCULOSKELETAL: +generalized myalgias 05/06/19 17:17 Is the patient limited Mohawk proficient: Yes *Physical Exam - Vital Signs Last Vital Signs Temp Pulse Resp BP Pulse Ox 98 F 94 H 18 159/70 97 05/06/19 10:26 05/06/19 10:26 05/06/19 10:26 05/06/19 10:26 05/06/19 10:26 - Physical Exam Comments: Bed bugs noted GENERAL: Awake, tired but arousable to voice, and oriented to person, in no acute distress HEAD: No signs of trauma, normocephalic, atraumatic EYES: PERRLA, EOMI, sclera anicteric, conjunctiva clear ENT: Hearing grossly normal, nares patent, oropharynx clear without exudates. Moist mucosa LUNGS: No distress, speaks in full sentences, clear to auscultation bilaterally HEART: Regular rate and rhythm, normal S1 and S2, no murmurs appreciated, peripheral pulses normal and equal bilaterally ABDOMEN: Soft, protuberance, no grimace to palpation, normoactive bowel sounds. No guarding, no rebound EXTREMITIES: Normal inspection, Normal range of motion, no edema. No clubbing or cyanosis NEUROLOGICAL: Cranial nerves II through XII grossly intact. Slow speech, no focal sensorimotor deficits SKIN: BLE edema w/ chronic venous stasis changes; no wounds observed 05/06/19 12:55 ED Treatment Course - LABORATORY CBC & Chemistry Diagram: 05/06/19 12:10 05/06/19 12:45 - ADDITIONAL ORDERS Additional order review: Laboratory Results 05/06/19 11:11 POC Glucometer 112 05/06/19 11:11 POC Glucometer 112 - RADIOLOGY Radiology Studies Ordered: Category Date Time Status CHEST X-RAY PORTABLE* [RAD] Stat Radiology 05/06/19 11:48 Ordered Medical Decision Making - Medical Decision Making The pt is a 73F w/ a history of HTN, CKD, IDDM, CAD, CHF who presents for evaluation of 8 days of fever, cough, and generalized body aches with possible AMS with somnolence Bed bugs noted by EMS S/p decon in ED ambulance bay ED Course Labs sent ECG CT head, CXR ECG w/ paced rhythm; HR 90; similar to previous Hgb 8.8, at baseline Cr 1.8, near baseline No leukocytosis LFTs unremarkable Trop I neg 05/06/19 13:52 Mild rhabdomyolysis -1L LR 05/06/19 15:34 CT w/o acute pathology CXR w/o acute change relative to previous Plan for admission for mild rhabdomyolysis, weakness, and possible AMS Dispo: admit *DC/Admit/Observation/Transfer Diagnosis at time of Disposition: Cough, Infestation by bed bug, Weakness Altered mental status Qualifiers: Altered mental status type: unspecified Qualified Code(s): R41.82 - Altered mental status, unspecified - Discharge Dispostion Condition at time of disposition: Fair Decision to Admit order: Yes - Referrals - Patient Instructions - Post Discharge Activity
--- NOTE | 2019-05-06 12:49 | PDOC ---
Documentation entered by Librado Gaspar SCRIBE, acting as scribe for Bety Mederos MD. Bety Mederos MD: This documentation has been prepared by the senaibHubert lao Daniel, SCRIBE, under my direction and personally reviewed by me in its entirety. I confirm that the documentation accurately reflects all work, treatment, procedures, and medical decision making performed by me. Attending Attestation - Resident Resident Name: IvetjasgabrielaCarlos - ED Attending Attestation I have performed the following: I have examined & evaluated the patient, The case was reviewed & discussed with the resident, I agree w/resident's findings & plan - HPI HPI: 05/06/19 12:48 73 y/o woman with a PMHx of CAD, s/p PM, HTN, HLD, Chronic Venous Insufficiency , IDDM, COPD, Anemia, Renal Insufficiency, GERD, OA. presenting with cough/ congestion x 8 days, a/w malaise and body aches. BIB ems and found to have bed bugs all over her body language barrier, phone translation with Greenlandic - pt poorly cooperative, goes back to sleep 05/06/19 13:56 - Physicial Exam PE: 05/06/19 12:49 Agree with the resident's HPI and PE as documented in the electronic medical record. somnolent, arousable, EOMI, PERRL, nl conjunctiva, anicteric; neck supple. lungs clear, RRR, PM palpated, abdomen soft nontender, protuberant. Back nontender. SANDERS x4, no focal neuro deficits.+peripheral edema. normal color for ethnicity, WWP. RLE skin discoloration, venous dermatitis/stasis changes. - Medical Decision Making 05/06/19 12:50 See HPI for details. Prior notes reviewed, including admissions, discharges and consultations. Vital signs reviewed, wnl. altered during periods arousable, sats well sitting upright, does drop to 89% on RA when lying down. decontaminated and showered from the bed bugs infestation DDX URI, pna, CO2 narcosis, COPD, CHF, anemia, dehydration, infection. electrolyte/metabolic derangements laboratory results and imaging reviewed, basic labs and lytes wnl, notable for baseline anemia and Cr function UA_neg for infection CXR_limited, cardiomegaly, interstitial markings Cardiac panel_neg trop, but +CK level >700s could be very mild rhabdomyolysis given the state she was found EKG V paced at 90 bpm, no interval abnormalities, wide QRS, ST and T wave segments and morphology normal. Nonspecific T wave abnormalities similar to prior paced pattern. CT head with chronic atrophy, no acute changes ED course -interventions: IV hydration - bed bugs, infestation, unable to care for self, unsafe for discharge admit Dr Combs/Don, for AMS, mild rhabdo. 05/06/19 13:54 05/06/19 13:56 05/06/19 15:33 Heart Score/ECG Review #1 ECG reviewed & interpreted by me at: 12:05 General ECG Interpretation: Normal Rate Compared to previous ECG there are: No significant change 05/06/19 12:51 EKG V paced at 90 bpm, no interval abnormalities, wide QRS, ST and T wave segments and morphology normal. Nonspecific T wave abnormalities similar to prior paced pattern.
[2019-05-06 12:56] LABS: ARTERIAL BLD GAS O2 SATURATION 94.6 % (95-98); ARTERIAL BLOOD GAS BASE EXCESS -0.2 meq/l (-2-2); ARTERIAL BLOOD GAS PCO2 46.2 mmHg (35-45); ARTERIAL BLOOD GAS PO2 78.3 mmHg (80-105); ARTERIAL BLOOD GAS pH 7.35 (7.35-7.45)
[2019-05-06 12:56] LABS: HEMATOCRIT 28.3 % (32.4-45.2); HEMOGLOBIN 8.8 GM/dL (10.7-15.3); MCH 21.1 pg (25.7-33.7); MCHC 31.2 g/dl (32.0-36.0); MEAN CELL VOLUME 67.7 fl (80-96); MONO % 9.7 % (3.8-10.2); NEUT % 79.3 % (42.8-82.8); RBC 4.17 M/mm3 (3.60-5.2); RDW 16.3 % (11.6-15.6); WHITE BLOOD COUNT 9.7 K/mm3 (4.0-10.0)
[2019-05-06 13:04] LABS: INR 1.1 (0.83-1.09)
[2019-05-06 13:06] LABS: ACTIVATED PTT 31.7 SECONDS (25.2-36.5)
[2019-05-06 13:08] LABS: PLATELET COUNT 219 K/MM3 (134-434)
[2019-05-06 13:13] LABS: ALBUMIN 3.2 g/dl (3.4-5.0); BILIRUBIN,TOTAL 0.4 mg/dL (0.2-1); BLOOD UREA NITROGEN 25.8 mg/dL (7-18); CALCIUM 8.9 mg/dL (8.5-10.1); CREATININE 1.9 mg/dL (0.55-1.3); POTASSIUM 4.9 mmol/L (3.5-5.1)
[2019-05-06 13:17] LABS: EPI CELLS 0.9 /HPF (0-5/HPF); HYALINE CASTS 5 /lpf (0-8); PH,URINE 5.5 (5.0-8.0); URINE APPEARANCE CLEAR; URINE BACTERIA 1.4 /hpf (NEGATIVE); URINE BILIRUBIN NEGATIVE (NEGATIVE); URINE COLOR YELLOW; URINE GLUCOSE (UA) 2+ (NEGATIVE); URINE KETONE NEGATIVE (NEGATIVE); URINE LEUK ESTERASE NEGATIVE (NEGATIVE); URINE NITRITE NEGATIVE (NEGATIVE); URINE PROTEIN 1+ (NEGATIVE); URINE RBC 1 /hpf (0-4); URINE WBC 0 /hpf (0-5)
[2019-05-06 14:10] LABS: ANISOCYTOSIS 1+
[2019-05-06] MEDS ORDERED: LACTATED RINGERS SOLUTION 1000 ML INFUS.BAG IV ONE (15:33)
[2019-05-06] MEDS ORDERED: SODIUM CHLORIDE 0.45% 1,000 ML IV SCH (23:15)
[2019-05-07] MEDS: LACTOBACILLUS ACIDOPHILUS 1 TABLET PO SCH ×2 (12:15→13:30)
[2019-05-07] MEDS: CARVEDILOL 12.5 MG TABLET (FP) PO SCH ×3 (12:16→23:03)
[2019-05-07] MEDS: VALSARTAN 40 MG TABLET (FP) PO SCH ×2 (12:16→13:31)
[2019-05-07] MEDS: ASPIRIN COATED 81 MG TABLET.EC PO SCH ×2 (12:17→13:31)
[2019-05-07] MEDS: FUROSEMIDE 40 MG TABLET (FP) PO SCH ×2 (12:18→13:31)
[2019-05-07] MEDS: GABAPENTIN 300 MG CAPSULE (FP) PO SCH ×3 (12:18→23:03)
[2019-05-07] MEDS: amLODIPine BESYLATE 5 MG TABLET (FP) PO SCH ×2 (12:19→13:32)
[2019-05-07] MEDS: CLOPIDOGREL BISULFATE 75 MG TABLET (FP) PO SCH ×2 (12:20→13:33)
[2019-05-07] MEDS: PANTOPRAZOLE 20 MG TABLET (FP) PO SCH ×2 (12:20→13:33)
[2019-05-07] MEDS: CHOLECALCIFEROL (VIT D3) 1,000 UNIT (25 MCG) TABLET PO SCH ×2 (12:21→13:33)
[2019-05-07] MEDS: ALLOPURINOL 100 MG TABLET (FP) PO SCH ×2 (12:22→13:34)
[2019-05-07] MEDS: INSULIN (NOVOLOG) ASPART 100 UNITS/ML 10ML VIAL SQ SCH ×2 (12:24→16:22)
--- NOTE | 2019-05-07 13:31 | HP ---
Admitting History and Physical - Primary Care Physician PCP: Iesha Combs - Admission History of Present Illness: 73 y/o woman with a PMHx of CAD, s/p PM, HTN, HLD, Chronic Venous Insufficiency , IDDM, COPD, Anemia, Renal Insufficiency, GERD, OA. presenting with cough/ congestion x 8 days, a/w malaise and body aches. BIB ems and found to have bed bugs all over her body. Chart reviewed Case was discussed with er Resident yesterday pt admitted to floor seen today awake/ comfortable feels well hungry wants to eat food History Source: Patient, Medical Record Limitations to Obtaining History: Language Barrier - Past Medical History Cardiovascular: Yes: CAD (PCI/STENT), HTN, Hyperlipdemia, Other (POKE IN-D) Pulmonary: Yes: COPD Gastrointestinal: Yes: GERD, Other (anemia, IRON DEF) Renal/: Yes: Renal Inusuff Heme/Onc: Yes: Anemia Musculoskeletal: Yes: Osteoarthritis Rheumatology: Yes: Gout Endocrine: Yes: Diabetes Mellitus - Past Surgical History Past Surgical History: Yes: AICD, Permanent Pacemaker, Stent - Smoking History Smoking history: Unknown if ever smoked Have you smoked in the past 12 months: No Aproximately how many cigarettes per day: 0 - Alcohol/Substance Use Hx Alcohol Use: No History of Substance Use: reports: None - 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) History of Recent Travel: No Home Medications - Allergies Allergies/Adverse Reactions: Allergies Allergy/AdvReac Type Severity Reaction Status Date / Time No Known Allergies Allergy Verified 05/06/19 11:05 - Home Medications Home Medications: Ambulatory Orders Allopurinol [Zyloprim -] 100 mg PO DAILY 02/24/16 Omeprazole 20 mg PO DAILY 10/02/16 Cholecalciferol (Vitamin D3) [Vitamin D3] 1,000 unit PO DAILY 05/24/18 Furosemide [Lasix -] 40 mg PO DAILY 05/24/18 Pravastatin Sodium 20 mg PO HS 05/24/18 Insulin (Levemir) [Levemir Vial] 24 unit SQ DAILY@0700 10/13/18 Aspirin Coated [Ecotrin -] 81 mg PO DAILY tablet.ec 01/30/19 Carvedilol [Coreg -] 12.5 mg PO BID #60 tablet 01/30/19 Amlodipine Besylate 5 mg PO DAILY 03/14/19 Clopidogrel Bisulfate [Clopidogrel] 75 mg PO DAILY 03/14/19 Albuterol 2.5/Ipratropium 0.5 [Duoneb -] 1 amp NEB RTID amp 03/20/19 Atorvastatin Ca [Lipitor] 10 mg PO HS tablet 03/20/19 Valsartan [Diovan] 40 mg PO DAILY tablet 03/20/19 Gabapentin [Neurontin -] 300 mg PO BID #60 capsule 03/28/19 Insulin (Levemir) [Levemir Vial] 22 units SQ HS #60 units 03/28/19 Insulin Aspart [Novolog] 5 unit SQ TID #0 unit 03/28/19 Lactobacillus Acidophilus [Bacid -] 1 tab PO DAILY #30 tab 03/28/19 Family Disease History - Family Disease History Family Disease History: Diabetes: Mother Review of Systems - Review of Systems Constitutional: reports: Malaise, Weakness Eyes: reports: No Symptoms Neck: reports: No Symptoms Cardiovascular: reports: No Symptoms Respiratory: reports: Cough Gastrointestinal: reports: No Symptoms Neurological: reports: Weakness. denies: No Symptoms Physical Examination Vital Signs: Vital Signs Temperature 99.2 F 05/07/19 09:35 Pulse Rate 80 05/07/19 09:35 Respiratory Rate 20 05/07/19 09:35 Blood Pressure 160/80 05/07/19 09:35 O2 Sat by Pulse Oximetry (%) 100 05/07/19 05:55 Constitutional: Yes: No Distress, Calm, Obese Eyes: Yes: Conjunctiva Clear Neck: Yes: Supple Cardiovascular: Yes: Regular Rate and Rhythm Respiratory: Yes: Diminished Gastrointestinal: Yes: Soft, Abdomen, Obese Extremities: Yes: Other (chronic venous stasis) Edema: No Labs: CBC, BMP 05/06/19 12:10 05/06/19 12:45 Imaging - Results Chest X-ray: Report Reviewed Problem List - Problems (1) Altered mental state Code(s): R41.82 - ALTERED MENTAL STATUS, UNSPECIFIED Qualifiers: Altered mental status type: unspecified Qualified Code(s): R41.82 - Altered mental status, unspecified (2) Infestation by bed bug Code(s): B88.8 - OTHER SPECIFIED INFESTATIONS (3) Weakness Code(s): R53.1 - WEAKNESS (4) Acute metabolic encephalopathy Code(s): G93.41 - METABOLIC ENCEPHALOPATHY (5) Biventricular ICD (implantable cardioverter-defibrillator) in place Code(s): Z95.810 - PRESENCE OF AUTOMATIC (IMPLANTABLE) CARDIAC DEFIBRILLATOR (6) CAD (coronary artery disease) Code(s): I25.10 - ATHSCL HEART DISEASE OF [place] CORONARY ARTERY W/O ANG PCTRS Qualifiers: (7) Diabetes Code(s): E11.9 - TYPE 2 DIABETES MELLITUS WITHOUT COMPLICATIONS (8) IDDM (insulin dependent diabetes mellitus) Code(s): E11.9 - TYPE 2 DIABETES MELLITUS WITHOUT COMPLICATIONS; Z79.4 - SEMICONDUCTOR WAFER INSPECTOR (CURRENT) USE OF INSULIN (9) Renal insufficiency Code(s): N28.9 - DISORDER OF KIDNEY AND URETER, UNSPECIFIED Assessment/Plan Discussed AMS resolved No need for swallow eval start on diet food and nutrition services supervisor to assist observe off abx d/c fluids contact isolations will follow
[2019-05-07] MEDS: ALBUTEROL SO4 2.5/IPRATROPIUM 0.5 INH SOL 3 ML VIAL.NEB. NEB SCH ×2 (13:54→19:54)
[2019-05-07] MEDS ORDERED: ENOXAPARIN NA (PORCINE) 30 MG/0.3 ML DISP.SYRIN SQ SCH (14:15)
[2019-05-07] MEDS: ENOXAPARIN NA (PORCINE) 40 MG/0.4 ML DISP.SYRIN SQ SCH (14:43)
[2019-05-07] MEDS ORDERED: INSULIN (NOVOLOG) ASPART 100 UNITS/ML 10ML VIAL ONE (16:30)
[2019-05-07] MEDS: ACETAMINOPHEN 325 MG TABLET (FP) PO PRN (19:02)
[2019-05-07] MEDS ORDERED: PATIENT'S OWN MEDICATION (NON-FORMULARY) (Pravastatin Sodium [Pravastatin Sodium] 20 MG) PO SCH (22:00)
[2019-05-07] MEDS: INSULIN (LEVEMIR) 100 UNITS/ML UNITS SQ SCH (23:03)
[2019-05-07] MEDS: ATORVASTATIN CA 10 MG TABLET (FP) PO SCH (23:03)
--- NOTE | 2019-05-08 00:26 | EKG ---
Test Reason : Blood Pressure : / mmHG Vent. Rate : 090 BPM Atrial Rate : 090 BPM P-R Int : 000 ms QRS Dur : 160 ms QT Int : 432 ms P-R-T Axes : 000 104 013 degrees QTc Int : 528 ms Suspect unspecified pacemaker failure Ventricular-paced rhythm ABNORMAL ECG WHEN COMPARED WITH ECG OF 23-MAR-2019 00:17, VENT. RATE HAS INCREASED BY 13 BPM Confirmed by MD Trinity, Richie ([id number]) on 05/08/2019 12:26:11 AM Referred By: Confirmed By:Richie Petersen MD
[2019-05-08] MEDS: INSULIN (LEVEMIR) 100 UNITS/ML UNITS SQ SCH ×2 (07:01→22:17)
[2019-05-08] MEDS: INSULIN (NOVOLOG) ASPART 100 UNITS/ML 10ML VIAL SQ SCH ×3 (07:04→17:52)
[2019-05-08] MEDS: ALBUTEROL SO4 2.5/IPRATROPIUM 0.5 INH SOL 3 ML VIAL.NEB. NEB SCH ×3 (07:25→20:31)
[2019-05-08] MEDS ORDERED: PT OWN MED DRAWER 7, Y5N ONE ×2 (09:51→18:10)
[2019-05-08] MEDS: CARVEDILOL 12.5 MG TABLET (FP) PO SCH ×2 (10:00→22:18)
[2019-05-08] MEDS: LACTOBACILLUS ACIDOPHILUS 1 TABLET PO SCH (10:00)
[2019-05-08] MEDS: amLODIPine BESYLATE 5 MG TABLET (FP) PO SCH (10:01)
[2019-05-08] MEDS: ASPIRIN COATED 81 MG TABLET.EC PO SCH (10:01)
[2019-05-08] MEDS: CLOPIDOGREL BISULFATE 75 MG TABLET (FP) PO SCH (10:01)
[2019-05-08] MEDS: GABAPENTIN 300 MG CAPSULE (FP) PO SCH ×2 (10:01→22:18)
[2019-05-08] MEDS: FUROSEMIDE 40 MG TABLET (FP) PO SCH (10:01)
[2019-05-08] MEDS: VALSARTAN 40 MG TABLET (FP) PO SCH (10:01)
[2019-05-08] MEDS: ENOXAPARIN NA (PORCINE) 40 MG/0.4 ML DISP.SYRIN SQ SCH (10:02)
[2019-05-08] MEDS: CHOLECALCIFEROL (VIT D3) 1,000 UNIT (25 MCG) TABLET PO SCH (10:02)
[2019-05-08] MEDS: ALLOPURINOL 100 MG TABLET (FP) PO SCH (10:02)
[2019-05-08] MEDS: PANTOPRAZOLE 20 MG TABLET (FP) PO SCH (10:02)
--- NOTE | 2019-05-08 12:23 | PN ---
Progress Note (short form) - Note Progress Note: pt seen/ examined. no distress dry cough somewhat lethargic today b sugar ok Vital Signs Temp 98.6 F 05/08/19 09:15 Pulse 74 05/08/19 09:15 Resp 20 05/08/19 09:15 BP 120/60 05/08/19 09:15 Pulse Ox 100 05/07/19 05:55 Intake & Output 05/07/19 05/08/19 05/08/19 23:59 11:59 23:59 Intake Total 0 0 Balance 0 0 Weight 244 lb 5 oz Intake: IV 0 1/2 Normal Saline 1,000 0 ml @ 50 mls/hr IV ASDIR [facility] Rx#:[id number] IVPB 0 Other: Voiding Method Diaper Incontinent Bowel Movement No Active Medications Acetaminophen (Tylenol -) 650 mg PO Q4H PRN PRN Reason: PAIN LEVEL 1-5 Last Admin: 05/07/19 19:02 Dose: 650 mg Albuterol/Ipratropium (Duoneb -) 1 amp NEB RTID [facility] Last Admin: 05/08/19 07:25 Dose: 1 amp Allopurinol (Zyloprim -) 100 mg PO DAILY [facility] Last Admin: 05/08/19 10:02 Dose: 100 mg Amlodipine Besylate (Norvasc -) 5 mg PO DAILY [facility] Last Admin: 05/08/19 10:01 Dose: 5 mg Aspirin (Ecotrin -) 81 mg PO DAILY [facility] Last Admin: 05/08/19 10:01 Dose: 81 mg Atorvastatin Calcium (Lipitor -) 10 mg PO HS [facility] Last Admin: 05/07/19 23:03 Dose: 10 mg Carvedilol (Coreg -) 12.5 mg PO BID [facility] Last Admin: 05/08/19 10:00 Dose: 12.5 mg Cholecalciferol (Vitamin D3 -) 1,000 unit PO DAILY [facility] Last Admin: 05/08/19 10:02 Dose: 1,000 unit Clopidogrel Bisulfate (Plavix -) 75 mg PO DAILY [facility] Last Admin: 05/08/19 10:01 Dose: 75 mg Enoxaparin Sodium (Lovenox -) 40 mg SQ DAILY [facility] Last Admin: 05/08/19 10:02 Dose: 40 mg Furosemide (Lasix -) 40 mg PO DAILY [facility] Last Admin: 07/01/19 10:01 Dose: 40 mg Gabapentin (Neurontin -) 300 mg PO BID [facility] Last Admin: 05/08/19 10:01 Dose: 300 mg Insulin Aspart (Novolog Vial) 5 units SQ TIDAC [facility] Last Admin: 05/08/19 07:04 Dose: 5 units Insulin Detemir (Levemir Vial) 22 units SQ HS [facility] Last Admin: 05/07/19 23:03 Dose: 22 units Insulin Detemir (Levemir Vial) 24 units SQ DAILY@0700 [facility] Last Admin: 05/08/19 07:01 Dose: 24 units Lactobacillus Acidophilus (Bacid -) 1 tab PO DAILY [facility] Last Admin: 05/08/19 10:00 Dose: 1 tab Pantoprazole Sodium (Protonix -) 20 mg PO DAILY [facility] Last Admin: 05/08/19 10:02 Dose: 20 mg Valsartan (Diovan -) 40 mg PO DAILY [facility] Last Admin: 05/08/19 10:01 Dose: 40 mg CBC, BMP 05/06/19 12:10 05/06/19 12:45 Microbiology 05/06/19 12:10 Blood Culture - Preliminary Blood - Peripheral Venous NO GROWTH OBTAINED AFTER 24 HOURS, INCUBATION TO CONTINUE FOR 4 DAYS. 05/06/19 12:10 Blood Culture - Preliminary Blood - Peripheral Venous NO GROWTH OBTAINED AFTER 24 HOURS, INCUBATION TO CONTINUE FOR 4 DAYS. 05/06/19 13:00 Urine Culture - Final Urine - Urine Clean Catch NO GROWTH OBTAINED Physical Examination Constitutional: Yes: No Distress, drowsy but arousable Eyes: Yes: Conjunctiva Clear Neck: Yes: Supple no jvd Cardiovascular: Yes: Regular Rate and Rhythm Respiratory: Yes: Diminished Gastrointestinal: Yes: Soft, Abdomen, Obese Extremities: Yes: Other (chronic venous stasis) Assessment/Plan discussed with nursing staff will monitor today robitussin prn d/c isolation -- clean from bedbugs now-- cleaned in er caregiver services home to assist observe off abx will consult cardiology also -- will follow Problem List - Problems (1) Altered mental state Code(s): R41.82 - ALTERED MENTAL STATUS, UNSPECIFIED Qualifiers: Altered mental status type: unspecified Qualified Code(s): R41.82 - Altered mental status, unspecified (2) Infestation by bed bug Code(s): B88.8 - OTHER SPECIFIED INFESTATIONS (3) Weakness Code(s): R53.1 - WEAKNESS (4) Acute metabolic encephalopathy Code(s): G93.41 - METABOLIC ENCEPHALOPATHY (5) Biventricular ICD (implantable cardioverter-defibrillator) in place Code(s): Z95.810 - PRESENCE OF AUTOMATIC (IMPLANTABLE) CARDIAC DEFIBRILLATOR (6) CAD (coronary artery disease) Code(s): I25.10 - ATHSCL HEART DISEASE OF [place] CORONARY ARTERY W/O ANG PCTRS Qualifiers: (7) Diabetes Code(s): E11.9 - TYPE 2 DIABETES MELLITUS WITHOUT COMPLICATIONS (8) IDDM (insulin dependent diabetes mellitus) Code(s): E11.9 - TYPE 2 DIABETES MELLITUS WITHOUT COMPLICATIONS; 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
--- NOTE | 2019-05-08 12:42 | CON.CARD ---
Consult - History of Present Illness History of Present Illness: 73 y/o woman with a PMHx of CAD, s/p PM, HTN, HLD, Chronic Venous Insufficiency , IDDM, COPD, Anemia, Renal Insufficiency, GERD, OA. presenting with cough/ congestion x 8 days, a/w malaise and body aches. BIB ems and found to have bed bugs all over her body. 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) Pulmonary: Yes: COPD Gastrointestinal: Yes: GERD, Other (anemia, IRON DEF) Renal/: Yes: Renal Inusuff Musculoskeletal: Yes: Osteoarthritis Rheumatology: Yes: Gout Endocrine: Yes: Diabetes Mellitus - Past Surgical History Past Surgical History: Yes: AICD, Permanent Pacemaker, Stent - Alcohol/Substance Use Hx Alcohol Use: No History of Substance Use: reports: None - Smoking History Smoking history: Unknown if ever smoked Have you smoked in the past 12 months: No Aproximately how many cigarettes per day: 0 - Social History 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) History of Recent Travel: No Home Medications - Allergies Allergies/Adverse Reactions: Allergies Allergy/AdvReac Type Severity Reaction Status Date / Time No Known Allergies Allergy Verified 05/06/19 11:05 - Home Medications Home Medications: Ambulatory Orders Allopurinol [Zyloprim -] 100 mg PO DAILY 02/24/16 Omeprazole 20 mg PO DAILY 10/02/16 Cholecalciferol (Vitamin D3) [Vitamin D3] 1,000 unit PO DAILY 05/24/18 Furosemide [Lasix -] 40 mg PO DAILY 05/24/18 Pravastatin Sodium 20 mg PO HS 05/24/18 Insulin (Levemir) [Levemir Vial] 24 unit SQ DAILY@0700 10/13/18 Aspirin Coated [Ecotrin -] 81 mg PO DAILY tablet.ec 01/30/19 Carvedilol [Coreg -] 12.5 mg PO BID #60 tablet 01/30/19 Amlodipine Besylate 5 mg PO DAILY 03/14/19 Clopidogrel Bisulfate [Clopidogrel] 75 mg PO DAILY 03/14/19 Albuterol 2.5/Ipratropium 0.5 [Duoneb -] 1 amp NEB RTID amp 03/20/19 Atorvastatin Ca [Lipitor] 10 mg PO HS tablet 03/20/19 Valsartan [Diovan] 40 mg PO DAILY tablet 03/20/19 Gabapentin [Neurontin -] 300 mg PO BID #60 capsule 03/28/19 Insulin (Levemir) [Levemir Vial] 22 units SQ HS #60 units 03/28/19 Insulin Aspart [Novolog] 5 unit SQ TID #0 unit 03/28/19 Lactobacillus Acidophilus [Bacid -] 1 tab PO DAILY #30 tab 03/28/19 Family Disease History - Family Disease History Family Disease History: Diabetes: Mother Vital Signs: Vital Signs Temperature 98.6 F 05/08/19 09:15 Pulse Rate 74 05/08/19 09:15 Respiratory Rate 20 05/08/19 09:15 Blood Pressure 120/60 05/08/19 09:15 O2 Sat by Pulse Oximetry (%) 100 05/07/19 05:55 - Other Data Labs, Other Data: CBC, BMP 05/06/19 12:10 05/06/19 12:45 INR, PTT INR 1.10 (0.83-1.09) H 05/06/19 11:49
[2019-05-08] MEDS ORDERED: guaiFENesin/D-M SUGAR-FREE/ACLHOL-FREE 118 ML BOTTLE PO PRN (12:54)
--- NOTE | 2019-05-08 17:26 | CON.CARD ---
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 Altered sensorium improved to baseline. She denies chest pain, palpitations, paroxysmal nocturnal dyspnea, orthopnea, eating dinner in chair. 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) Pulmonary: Yes: COPD Gastrointestinal: Yes: GERD, Other (anemia, IRON DEF) Renal/: Yes: Renal Inusuff Musculoskeletal: Yes: Osteoarthritis Rheumatology: Yes: Gout Endocrine: Yes: Diabetes Mellitus - Past Surgical History Past Surgical History: Yes: AICD, Permanent Pacemaker, Stent - Alcohol/Substance Use Hx Alcohol Use: No History of Substance Use: reports: None - Smoking History Smoking history: Unknown if ever smoked Have you smoked in the past 12 months: No Aproximately how many cigarettes per day: 0 - Social History 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) History of Recent Travel: No Home Medications - Allergies Allergies/Adverse Reactions: Allergies Allergy/AdvReac Type Severity Reaction Status Date / Time No Known Allergies Allergy Verified 05/06/19 11:05 - Home Medications Home Medications: Ambulatory Orders Allopurinol [Zyloprim -] 100 mg PO DAILY 02/24/16 Omeprazole 20 mg PO DAILY 10/02/16 Cholecalciferol (Vitamin D3) [Vitamin D3] 1,000 unit PO DAILY 05/24/18 Furosemide [Lasix -] 40 mg PO DAILY 05/24/18 Pravastatin Sodium 20 mg PO HS 05/24/18 Insulin (Levemir) [Levemir Vial] 24 unit SQ DAILY@0700 10/13/18 Aspirin Coated [Ecotrin -] 81 mg PO DAILY tablet.ec 01/30/19 Carvedilol [Coreg -] 12.5 mg PO BID #60 tablet 01/30/19 Amlodipine Besylate 5 mg PO DAILY 03/14/19 Clopidogrel Bisulfate [Clopidogrel] 75 mg PO DAILY 03/14/19 Albuterol 2.5/Ipratropium 0.5 [Duoneb -] 1 amp NEB RTID amp 03/20/19 Atorvastatin Ca [Lipitor] 10 mg PO HS tablet 03/20/19 Valsartan [Diovan] 40 mg PO DAILY tablet 03/20/19 Gabapentin [Neurontin -] 300 mg PO BID #60 capsule 03/28/19 Insulin (Levemir) [Levemir Vial] 22 units SQ HS #60 units 03/28/19 Insulin Aspart [Novolog] 5 unit SQ TID #0 unit 03/28/19 Lactobacillus Acidophilus [Bacid -] 1 tab PO DAILY #30 tab 03/28/19 Family Disease History - Family Disease History Family Disease History: Diabetes: Mother Review of Systems - Review of Systems Respiratory: reports: Cough, SOB Vital Signs: Vital Signs Temperature 98.5 F 05/08/19 15:16 Pulse Rate 78 05/08/19 15:16 Respiratory Rate 18 05/08/19 15:16 Blood Pressure 134/72 05/08/19 15:16 O2 Sat by Pulse Oximetry (%) 100 05/07/19 05:55 Constitutional: Yes: No Distress, Calm Neck: Yes: Supple Respiratory: Yes: Regular, Diminished Gastrointestinal: Yes: Normal Bowel Sounds, Soft, Abdomen, Obese Cardiovascular: Yes: Regular Rate and Rhythm JVD: No Carotid Bruit: No Heart Sounds: Yes: S1, S2 Murmur: Yes: Systolic Murmur, Grade 1 Edema: Yes Edema: LLE: Trace, RLE: Trace Integumentary: Yes: Venous Stasis Changes - Other Data Labs, Other Data: CBC, BMP 05/06/19 12:10 05/06/19 12:45 INR, PTT INR 1.10 (0.83-1.09) H 05/06/19 11:49 V-paced @ 90 Ejection Fraction %: LVEF < 40 % Imaging - Results Chest X-ray: Report Reviewed (Congestion, rotated, left-sided PPM, stable since previous study) Problem List - Problems (1) Altered mental state Code(s): R41.82 - ALTERED MENTAL STATUS, UNSPECIFIED Qualifiers: Altered mental status type: delirium Qualified Code(s): R41.0 - Disorientation, unspecified (2) Infestation by bed bug Code(s): B88.8 - OTHER SPECIFIED INFESTATIONS (3) Anemia Code(s): D64.9 - ANEMIA, UNSPECIFIED Qualifiers: Anemia type: due to chronic kidney disease Chronic kidney disease stage: stage 3 (moderate) Qualified Code(s): N18.3 - Chronic kidney disease, stage 3 (moderate); D63.1 - Anemia in chronic kidney disease (4) Biventricular ICD (implantable cardioverter-defibrillator) in place Code(s): Z95.810 - PRESENCE OF AUTOMATIC (IMPLANTABLE) CARDIAC DEFIBRILLATOR (5) CAD (coronary artery disease) Code(s): I25.10 - ATHSCL HEART DISEASE OF [place] CORONARY ARTERY W/O ANG PCTRS Qualifiers: Coronary Disease-Associated Artery/Lesion type: unspecified vessel or lesion type Associated angina: without angina (6) Diabetes Code(s): E11.9 - TYPE 2 DIABETES MELLITUS WITHOUT COMPLICATIONS Qualifiers: Diabetes mellitus type: type 2 Chronic kidney disease stage: stage 3 ( moderate) (7) Diastolic CHF Code(s): I50.30 - UNSPECIFIED DIASTOLIC (CONGESTIVE) HEART FAILURE Qualifiers: Heart failure chronicity: chronic Qualified Code(s): I50.32 - Chronic diastolic (congestive) heart failure (8) HTN (hypertension) Code(s): I10 - ESSENTIAL (PRIMARY) HYPERTENSION Qualifiers: Hypertension type: essential hypertension Qualified Code(s): I10 - Essential (primary) hypertension (9) History of percutaneous coronary intervention Code(s): Z98.89 - OTHER SPECIFIED POSTPROCEDURAL STATES * DO NOT USE * (10) Hypercholesterolemia Code(s): E78.0 - PURE HYPERCHOLESTEROLEMIA * DO NOT USE * (11) Hyperlipidemia Code(s): E78.5 - HYPERLIPIDEMIA, UNSPECIFIED Qualifiers: Hyperlipidemia type: pure hypercholesterolemia Qualified Code(s): E78.00 - Pure hypercholesterolemia, unspecified; E78.0 - Pure hypercholesterolemia (12) IDDM (insulin dependent diabetes mellitus) Code(s): E11.9 - TYPE 2 DIABETES MELLITUS WITHOUT COMPLICATIONS; Z79.4 - [facility] (CURRENT) USE OF INSULIN (13) Renal insufficiency Code(s): N28.9 - DISORDER OF KIDNEY AND URETER, UNSPECIFIED (14) SOB (shortness of breath) on exertion Code(s): R06.02 - SHORTNESS OF BREATH Assessment/Plan March 15, 2019 Echo: Normal LV size and fxn, mod ADOLFO, mod MR March 14, 2018 Echo: Mild-mod decreased LVEF 40-45%, pacemaker lead, mild MR, TR, pulm HTN 1. Chronic LV diastolic/systolic dysfunction and pulmonary HTN with h/o failure 2. Bedbug infestation post decomtamination 3. CAD s/p PCI/stent, angina pectoris 4. 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 HTN/HCVD 6. Insulin-dependent type 2 diabetes mellitus not at goal control 7. Hypercholesterolemia 8. CKD 9. Anemia PLAN: 1. Continue Lasix 40 qd with monitor diuretic response, renal function and electrolytes 2. Continue Carvedilol 12.5 bid, Norvasc 5 qd, Lipitor 10 qhs, Plavix 75 qd, valsartan 40 qd as renal fxn stable, d/c ASA 81 qd given stable CAD 3. DVT and GI prophylaxis 4. OOB to chair and ambulate as tolerated 5. BD, O2 as needed, observe off abx, possible flex bronchoscopy to r/o endobronchial pathology as outpatient 6. Thank you for consultative opportunity
[2019-05-08] MEDS ORDERED: INSULIN (NOVOLOG) ASPART 100 UNITS/ML 10ML VIAL ONE (18:03)
[2019-05-08] MEDS: ACETAMINOPHEN 325 MG TABLET (FP) PO PRN (18:49)
[2019-05-08] MEDS: ATORVASTATIN CA 10 MG TABLET (FP) PO SCH (22:18)
[2019-05-09] MEDS: INSULIN (NOVOLOG) ASPART 100 UNITS/ML 10ML VIAL SQ SCH ×3 (06:15→17:48)
[2019-05-09] MEDS: INSULIN (LEVEMIR) 100 UNITS/ML UNITS SQ SCH (06:17)
[2019-05-09] MEDS ORDERED: INSULIN (LEVEMIR) 100 UNITS/ML UNITS SQ ONE (06:24)
[2019-05-09 07:36] LABS: BASO % 0.9 % (0-2.0); EOS % 6.1 % (0-4.5); HEMOGLOBIN 7.9 GM/dL (10.7-15.3); LYMPH % 23.2 % (8-40); MCH 21.1 pg (25.7-33.7); MCHC 31.8 g/dl (32.0-36.0); MEAN CELL VOLUME 66.5 fl (80-96); MEAN PLT VOLUME 10.4 fl (7.5-11.1); MONO % 11.5 % (3.8-10.2); NEUT % 58.3 % (42.8-82.8); PLATELET COUNT 190 K/MM3 (134-434); RBC 3.76 M/mm3 (3.60-5.2); RDW 16.1 % (11.6-15.6); WHITE BLOOD COUNT 6.1 K/mm3 (4.0-10.0)
[2019-05-09 08:06] LABS: ALBUMIN 2.7 g/dl (3.4-5.0); BILIRUBIN,TOTAL 0.4 mg/dL (0.2-1); BLOOD UREA NITROGEN 32.5 mg/dL (7-18); CALCIUM 8.4 mg/dL (8.5-10.1); CREATININE 1.8 mg/dL (0.55-1.3); POTASSIUM 4.4 mmol/L (3.5-5.1); TOT PROT 6.3 g/dl (6.4-8.2)
[2019-05-09] MEDS: ALBUTEROL SO4 2.5/IPRATROPIUM 0.5 INH SOL 3 ML VIAL.NEB. NEB SCH ×3 (09:11→20:05)
--- NOTE | 2019-05-09 10:03 | PN ---
Progress Note, Physician Chief Complaint: Events noted Not in distress History of Present Illness: Patient was seen and examined. Awake and alert. Chart was reviewed Denies chest pain, SOB or palpitations - Current Medication List Current Medications: Active Medications Acetaminophen (Tylenol -) 650 mg PO Q4H PRN PRN Reason: PAIN LEVEL 1-5 Last Admin: 05/08/19 18:49 Dose: 650 mg Albuterol/Ipratropium (Duoneb -) 1 amp NEB RTID [facility] Last Admin: 05/09/19 09:11 Dose: 1 amp Allopurinol (Zyloprim -) 100 mg PO DAILY [facility] Last Admin: 05/08/19 10:02 Dose: 100 mg Amlodipine Besylate (Norvasc -) 5 mg PO DAILY [facility] Last Admin: 05/08/19 10:01 Dose: 5 mg Aspirin (Ecotrin -) 81 mg PO DAILY [facility] Last Admin: 05/08/19 10:01 Dose: 81 mg Atorvastatin Calcium (Lipitor -) 10 mg PO HS [facility] Last Admin: 05/08/19 22:18 Dose: 10 mg Carvedilol (Coreg -) 12.5 mg PO BID [facility] Last Admin: 05/08/19 22:18 Dose: 12.5 mg Cholecalciferol (Vitamin D3 -) 1,000 unit PO DAILY [facility] Last Admin: 05/08/19 10:02 Dose: 1,000 unit Clopidogrel Bisulfate (Plavix -) 75 mg PO DAILY [facility] Last Admin: 05/08/19 10:01 Dose: 75 mg Enoxaparin Sodium (Lovenox -) 40 mg SQ DAILY [facility] Last Admin: 05/08/19 10:02 Dose: 40 mg Furosemide (Lasix -) 40 mg PO DAILY [facility] Last Admin: 05/08/19 10:01 Dose: 40 mg Gabapentin (Neurontin -) 300 mg PO BID [facility] Last Admin: 05/08/19 22:18 Dose: 300 mg Guaifenesin (Diabetic Tussin Dm -) 10 ml PO Q6H PRN PRN Reason: COUGH Last Admin: 05/08/19 18:11 Dose: 10 ml Insulin Aspart (Novolog Vial) 5 units SQ TIDAC [facility] Last Admin: 05/09/19 06:15 Dose: 5 units Insulin Detemir (Levemir Vial) 22 units SQ HS [facility] Last Admin: 07/01/19 22:17 Dose: 22 units Insulin Detemir (Levemir Vial) 24 units SQ DAILY@0700 [facility] Last Admin: 05/09/19 06:17 Dose: 24 units Lactobacillus Acidophilus (Bacid -) 1 tab PO DAILY [facility] Last Admin: 05/08/19 10:00 Dose: 1 tab Pantoprazole Sodium (Protonix -) 20 mg PO DAILY [facility] Last Admin: 05/08/19 10:02 Dose: 20 mg Valsartan (Diovan -) 40 mg PO DAILY [facility] Last Admin: 05/08/19 10:01 Dose: 40 mg - Objective Vital Signs: Vital Signs Temperature 98.4 F 05/09/19 07:00 Pulse Rate 80 05/09/19 07:00 Respiratory Rate 20 05/09/19 07:00 Blood Pressure 108/66 05/09/19 07:00 O2 Sat by Pulse Oximetry (%) 97 05/08/19 21:00 Eyes: Yes: PERRL HENT: Yes: Atraumatic Neck: Yes: Supple Cardiovascular: Yes: Regular Rate and Rhythm, Murmur (Soft SM), S1, S2 Respiratory: Yes: CTA Bilaterally Gastrointestinal: Yes: Normal Bowel Sounds, Soft. No: Tenderness Edema: Yes Labs: CBC, BMP 05/09/19 06:45 05/09/19 06:45 Problem List - Problems (1) Infestation by bed bug Code(s): B88.8 - OTHER SPECIFIED INFESTATIONS (2) Acute CHF Code(s): I50.9 - HEART FAILURE, UNSPECIFIED Qualifiers: Heart failure type: combined systolic and diastolic Qualified Code(s): I50.41 - Acute combined systolic (congestive) and diastolic (congestive) heart failure (3) Acute on chronic renal insufficiency Code(s): N28.9 - DISORDER OF KIDNEY AND URETER, UNSPECIFIED; N18.9 - CHRONIC KIDNEY DISEASE, UNSPECIFIED (4) Acute respiratory failure with hypercapnia Code(s): J96.02 - ACUTE RESPIRATORY FAILURE WITH HYPERCAPNIA (5) Acute right-sided CHF (congestive heart failure) Code(s): I50.9 - HEART FAILURE, UNSPECIFIED (6) Anemia Code(s): D64.9 - ANEMIA, UNSPECIFIED Qualifiers: Anemia type: due to chronic kidney disease Chronic kidney disease stage: stage 3 (moderate) Qualified Code(s): N18.3 - Chronic kidney disease, stage 3 (moderate); D63.1 - Anemia in chronic kidney disease (7) Biventricular ICD (implantable cardioverter-defibrillator) in place Code(s): Z95.810 - PRESENCE OF AUTOMATIC (IMPLANTABLE) CARDIAC DEFIBRILLATOR (8) CAD (coronary artery disease) Code(s): I25.10 - ATHSCL HEART DISEASE OF [place] CORONARY ARTERY W/O ANG PCTRS Qualifiers: Coronary Disease-Associated Artery/Lesion type: unspecified vessel or lesion type Associated angina: without angina (9) Diastolic CHF Code(s): I50.30 - UNSPECIFIED DIASTOLIC (CONGESTIVE) HEART FAILURE Qualifiers: Heart failure chronicity: chronic Qualified Code(s): I50.32 - Chronic diastolic (congestive) heart failure (10) HTN (hypertension) Code(s): I10 - ESSENTIAL (PRIMARY) HYPERTENSION Qualifiers: Hypertension type: essential hypertension Qualified Code(s): I10 - Essential (primary) hypertension (11) History of percutaneous coronary intervention Code(s): Z98.89 - OTHER SPECIFIED POSTPROCEDURAL STATES * DO NOT USE * (12) Hypercholesterolemia Code(s): E78.0 - PURE HYPERCHOLESTEROLEMIA * DO NOT USE * (13) IDDM (insulin dependent diabetes mellitus) Code(s): E11.9 - TYPE 2 DIABETES MELLITUS WITHOUT COMPLICATIONS; 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 Chronic LV diastolic/systolic dysfunction and pulmonary HTN with h/o failure 2. Bedbug infestation post decontamination 3. CAD s/p PCI/stent, angina pectoris 4. 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 HTN/HCVD 6. Insulin-dependent type 2 diabetes mellitus not at goal control 7. Hypercholesterolemia 8. CKD 9. Anemia PLAN: 1. Continue Lasix 40 mg QD with monitor renal function and electrolytes 2. Continue Carvedilol 12.5 mg BID, Norvasc 5 mg QD, Lipitor 10 mg QHS, Plavix 75 mg QD and Valsartan 40 mg QD 3. DVT and GI prophylaxis 4. OOB to chair and ambulate as tolerated 5. Bronchodilator, O2 as needed, observe off antibiotic and further pulmonary work up as outpatient Nima Mcgill MD
[2019-05-09] MEDS: VALSARTAN 40 MG TABLET (FP) PO SCH (10:26)
[2019-05-09] MEDS: LACTOBACILLUS ACIDOPHILUS 1 TABLET PO SCH (10:26)
[2019-05-09] MEDS: ENOXAPARIN NA (PORCINE) 40 MG/0.4 ML DISP.SYRIN SQ SCH (10:26)
[2019-05-09] MEDS: CLOPIDOGREL BISULFATE 75 MG TABLET (FP) PO SCH (10:27)
[2019-05-09] MEDS: ALLOPURINOL 100 MG TABLET (FP) PO SCH (10:27)
[2019-05-09] MEDS: CHOLECALCIFEROL (VIT D3) 1,000 UNIT (25 MCG) TABLET PO SCH (10:27)
[2019-05-09] MEDS: GABAPENTIN 300 MG CAPSULE (FP) PO SCH (10:27)
[2019-05-09] MEDS: amLODIPine BESYLATE 5 MG TABLET (FP) PO SCH (10:27)
[2019-05-09] MEDS: PANTOPRAZOLE 20 MG TABLET (FP) PO SCH (10:27)
[2019-05-09] MEDS: ASPIRIN COATED 81 MG TABLET.EC PO SCH (10:27)
[2019-05-09] MEDS: FUROSEMIDE 40 MG TABLET (FP) PO SCH (10:27)
[2019-05-09] MEDS: CARVEDILOL 12.5 MG TABLET (FP) PO SCH (10:27)
--- NOTE | 2019-05-09 11:54 | DS ---
Physical Examination Vital Signs: Vital Signs Temperature 98.4 F 05/09/19 07:00 Pulse Rate 80 05/09/19 07:00 Respiratory Rate 20 05/09/19 07:00 Blood Pressure 108/66 05/09/19 07:00 O2 Sat by Pulse Oximetry (%) 97 05/08/19 21:00 Constitutional: Yes: No Distress, Calm Cardiovascular: Yes: Regular Rate and Rhythm Respiratory: Yes: Diminished Gastrointestinal: Yes: Normal Bowel Sounds, Soft, Abdomen, Obese. No: Tenderness Edema: Yes Edema: LLE: 1+, RLE: 1+ Labs: CBC, BMP 05/09/19 06:45 05/09/19 06:45 Discharge Summary Reason For Visit: COUGH,RHABOMYOLYSIS,WEAKNESS, AMS Current Active Problems Altered mental state (Acute) Cough (Acute) Infestation by bed bug (Acute) Weakness (Acute) Hospital Course: Admitted for cough and congestion was initially on antibiotics-- dc pt better but is weak She was evaluated by Cardiology and was cleared cardiac brown She does not have bed bugs continue with meds needs STR for weakness upon dc from STR- she will need follow up with Pulmonary for bronchoscopy for endobronchial lesion used conference interpreter phone- # [phone] Condition: Fair - Instructions Disposition: HALFWAY FACILITY - Home Medications Comprehensive Discharge Medication List: Ambulatory Orders Allopurinol [Zyloprim -] 100 mg PO DAILY 02/24/16 Omeprazole 20 mg PO DAILY 10/02/16 Cholecalciferol (Vitamin D3) [Vitamin D3] 1,000 unit PO DAILY 05/24/18 Furosemide [Lasix -] 40 mg PO DAILY 05/24/18 Pravastatin Sodium 20 mg PO HS 05/24/18 Insulin (Levemir) [Levemir Vial] 24 unit SQ DAILY@0700 10/13/18 Aspirin Coated [Ecotrin -] 81 mg PO DAILY tablet.ec 01/30/19 Carvedilol [Coreg -] 12.5 mg PO BID #60 tablet 01/30/19 Amlodipine Besylate 5 mg PO DAILY 03/14/19 Clopidogrel Bisulfate [Clopidogrel] 75 mg PO DAILY 03/14/19 Albuterol 2.5/Ipratropium 0.5 [Duoneb -] 1 amp NEB RTID amp 03/20/19 Atorvastatin Ca [Lipitor] 10 mg PO HS tablet 03/20/19 Valsartan [Diovan] 40 mg PO DAILY tablet 03/20/19 Gabapentin [Neurontin -] 300 mg PO BID #60 capsule 03/28/19 Insulin (Levemir) [Levemir Vial] 22 units SQ HS #60 units 03/28/19 Insulin Aspart [Novolog] 5 unit SQ TID #0 unit 03/28/19 Lactobacillus Acidophilus [Bacid -] 1 tab PO DAILY #30 tab 03/28/19
[2019-05-09 17:17] VITALS: BP 134/67; PULSE 85; TEMP 98.6
== END 2019-05-09 21:57 | DRG 947 ==
LOC: JER 10:25 → JERBED 15:38 → J8W 18:57
PROVIDERS: ADMIT Internal Medicine; ATTEND Internal Medicine
DX: R53.1 Weakness (principal); G93.41 Metabolic encephalopathy; I13.0 Hypertensive heart and chronic kidney disease with heart failure and stage 1 through stage 4 chronic kidney disease, or unspecified chronic kidney disease; Z68.42 Body mass index [BMI] 45.0-49.9, adult; I50.32 Chronic diastolic (congestive) heart failure; N18.9 Chronic kidney disease, unspecified; I27.20 Pulmonary hypertension, unspecified; E11.22 Type 2 diabetes mellitus with diabetic chronic kidney disease; I25.10 Atherosclerotic heart disease of native coronary artery without angina pectoris; I87.8 Other specified disorders of veins; Z79.4 Long term (current) use of insulin; D50.9 Iron deficiency anemia, unspecified; F41.9 Anxiety disorder, unspecified; Z95.5 Presence of coronary angioplasty implant and graft; K21.9 Gastro-esophageal reflux disease without esophagitis; J44.9 Chronic obstructive pulmonary disease, unspecified; M19.90 Unspecified osteoarthritis, unspecified site; E78.5 Hyperlipidemia, unspecified; M10.9 Gout, unspecified; Z95.810 Presence of automatic (implantable) cardiac defibrillator; E66.9 Obesity, unspecified; B88.8 Other specified infestations; R09.81 Nasal congestion; R05 Cough
CPT/HCPCS: 36415; 36600; 70450-TC; 71045-TC-FY; 80053; 81003; 82375; 82550; 82553; 82803; 82962; 83036; 83050; 84484; 85025; 85610; 85730; 87040; 87086; 93005; 93010; 94640; 97116-GP; 97162-GP; 99284-25

== ENCOUNTER 2019-05-28 18:16 | Inpatient (IN) | payer OTHER | END 2019-05-31 14:54 | LOC: JER 18:16 → JERBED 21:25 → J4S 23:21 ==

== ENCOUNTER 2019-10-09 06:52 | Inpatient (IN) | payer OTHER ==
--- NOTE | 2019-10-09 07:33 | PDOC ---
History of Present Illness - General Chief Complaint: Shortness of Breath Stated Complaint: DIFFICULTY BREATHING Time Seen by Provider: 10/09/19 07:08 History Source: Patient Exam Limitations: No Limitations - History of Present Illness Initial Comments: 10/09/19 07:32 Yesenia Kyle is a 74F with PMH COPD (home nebs, no home O2), CAD s/p pacemaker, HTN, HLD, IDDM, anemia, chronic venous insufficiency, renal insufficiency, GERD, OA presenting with 3 days of fever, non-productive cough, and SOB. Per patient's family member at bedside, patient has been having weakness with mild fever and non-productive cough that has been worsening for the last 3 days. Lives alone at home with live-in home health aide, denies sick contacts. Patient refused to go to hospital or to see a doctor, PMD Iesha Combs called and recommended not giving medications for fever 2/2 renal disease. This morning was sitting on couch and was found by home health aide after sliding down. Denies LOC, injury, seizure-like activity, but does complain of some weakness. Has history of COPD, not on home O2, has home nebs that she uses. Per family, has chronic hallucinations that been worsening and keeping her up at night, mental status not acutely changed, but sees people who threaten to hurt her. Currently denies chest pain, palpitations, abdominal pain, urinary symptoms, constipation/diarrhea, dizziness, headache. Past History - Past Medical History Allergies/Adverse Reactions: Allergies Allergy/AdvReac Type Severity Reaction Status Date / Time No Known Allergies Allergy Verified 10/09/19 06:58 Home Medications: Ambulatory Orders Allopurinol [Zyloprim -] 100 mg PO DAILY 02/24/16 Cholecalciferol (Vitamin D3) [Vitamin D3] 1,000 unit PO DAILY 05/24/18 Furosemide [Lasix -] 40 mg PO DAILY 05/24/18 Pravastatin Sodium 20 mg PO HS 05/24/18 Aspirin Coated [Ecotrin -] 81 mg PO DAILY tablet.ec 01/30/19 Amlodipine Besylate 5 mg PO DAILY 03/14/19 Clopidogrel Bisulfate [Clopidogrel] 75 mg PO DAILY 03/14/19 Albuterol 2.5/Ipratropium 0.5 [Duoneb -] 1 amp NEB RTID amp 03/20/19 Valsartan [Diovan] 40 mg PO DAILY tablet 03/20/19 Gabapentin [Neurontin -] 300 mg PO BID #60 capsule 03/28/19 Lactobacillus Acidophilus [Bacid -] 1 tab PO DAILY #30 tab 03/28/19 Albuterol 2.5/Ipratropium 0.5 [Duoneb -] 1 amp NEB RQID #14 amp 05/31/19 Carvedilol [Coreg -] 6.25 mg PO BID #60 tablet 05/31/19 Insulin Sliding Scale [Novolog Vial Sliding Scale -] 1 vial SQ TIDAC #30 units 05/31/19 Insulin (Levemir) [Levemir Vial] 20 units SQ BID@0700,2200 10/09/19 Omeprazole 1 tab PO DAILY 10/09/19 Sevelamer Carbonate [Renvela -] 1 tab PO AC 10/09/19 Anemia: Yes Asthma: Yes Cancer: No Cardiac Disorders: Yes (HCVD, chest pain syndrome) CVA: No COPD: Yes CHF: Yes Dementia: No Diabetes: Yes GI Disorders: No Disorders: No HTN: Yes Hypercholesterolemia: Yes Liver Disease: No Psychiatric Problems: Yes (anxiety) Seizures: No Thyroid Disease: No - Surgical History Abdominal Surgery: No Appendectomy: No Cardiac Surgery: Yes (STENTS/PPM 2007) Cholecystectomy: No Lung Surgery: No Neurologic Surgery: No Orthopedic Surgery: No - Reproductive History Cervical CA: No Dysfunctional Uterine Bleeding: No Ectopic : No Endometrial CA: No Polycystic Ovaries: No Therapeutic (s) & number: No Tubal Ligation: No - Immunization History Td Vaccination: Yes TDAP Vaccination: Yes Immunization Up to Date: Yes - Psycho Social/Smoking Cessation Hx Smoking Status: No Smoking History: Unknown if ever smoked Have you smoked in the past 12 months: No Number of Cigarettes Smoked Daily: 0 Hx Alcohol Use: No Drug/Substance Use Hx: No Substance Use Type: None Hx Substance Use Treatment: No Review of Systems - Review of Systems Able to Perform ROS?: Yes Constitutional: Yes: Fever. No: Chills HEENTM: No: Symptoms Reported Respiratory: Yes: Cough, Shortness of Breath. No: Wheezing, Productive cough Cardiac (ROS): No: Chest Pain, Lightheadedness, Palpitations, Syncope ABD/GI: No: Constipated, Diarrhea, Nausea, Vomiting : No: Symptoms Reported Musculoskeletal: No: Symptoms Reported Integumentary: No: Symptoms Reported Neurological: No: Symptoms reported Endocrine: No: Symptoms Reported Hematologic/Lymphatic: No: Symptoms Reported All Other Systems: Reviewed and Negative *Physical Exam - Vital Signs Last Vital Signs Temp Pulse Resp BP Pulse Ox 98.4 F 108 H 26 H 172/77 H 90 L 10/09/19 06:55 10/09/19 06:55 10/09/19 06:55 10/09/19 06:55 10/09/19 06:55 - Physical Exam General Appearance: Yes: Nourished, Appropriately Dressed, Other (somnolent appearing female sitting up in bed, in no acute distress, speaking in full sentences in Creole). No: Apparent Distress HEENT: positive: EOMI, NANCY, Normal ENT Inspection, Normal Voice, Symmetrical, Pharynx Normal. negative: Scleral Icterus (R), Scleral Icterus (L) Neck: positive: Trachea midline, Supple. negative: Tender, Lymphadenopathy (R) , Lymphadenopathy (L) Respiratory/Chest: positive: Normal Breath Sounds, Labored Respiration, Crackles (L base). negative: Chest Tender, Respiratory Distress, Accessory Muscle Use, Rales, Rhonchi, Stridor Cardiovascular: positive: Regular Rhythm, Edema (3+ pitting edema BLW), Tachycardia. negative: Murmur Gastrointestinal/Abdominal: positive: Normal Bowel Sounds, Flat, Soft, Protuberent. negative: Tender, Organomegaly Musculoskeletal: positive: Normal Inspection. negative: CVA Tenderness Extremity: positive: Normal Capillary Refill, Normal Inspection, Normal Range of Motion. negative: Tender Integumentary: positive: Normal Color, Dry, Warm. negative: Cyanotic Neurologic: positive: Alert, Normal Mood/Affect, Normal Response Heart Score/ECG Review - History History: Slightly suspicious - Electrocardiogram EKG: Non specific repolarization disturbance - Age Age: >/= 65 - Risk Factors Risk Factors Heart Score: Yes Hx Hypercholesterolemia, Yes Hx Hypertension, Yes Hx Diabetes, Yes Hx Obesity Based on the list above the patient has:: >/=3 risk factors or Hx atherosclerotic disease - Troponin Troponin: </= normal limit - Score Heart Score - Total: 5 ED Treatment Course - LABORATORY CBC & Chemistry Diagram: 10/09/19 09:16 10/09/19 10:03 - RADIOLOGY Radiology Studies Ordered: Category Date Time Status CHEST PA & LAT [RAD] Stat Radiology 10/09/19 07:31 Ordered Medical Decision Making - Medical Decision Making 10/09/19 07:32 Yesenia Kyle is a 74F with PMH COPD (home nebs, no home O2), CAD s/p pacemaker, HTN, HLD, IDDM, anemia, chronic venous insufficiency, renal insufficiency, GERD, OA presenting with 3 days of fever, non-productive cough, and SOB. Concerned for PNA vs. [place] vs. COPD exacerbation vs. CHF. Last Echo a few months ago shows normal EF. Vital signs on presentation abnormal, afebrile but has O2sat 90. Ordering Sepsis order set with BNP. ECG shows ventricular paced rhythm with HR 101, QRS 156, QTc 518, no evidence of ischemic changes or TWI, has known LPFB consistent with prior ECG May 2019. 10/09/19 09:33 CXR shows poor inspiratory effort with chin artifact, but bilateral congestive changes at the colten with consolidation vs atelectasis at the left lung base. Influenza negative. Labs notable for: - WBC 11.9 - VBG WNL - K 6.1 - Cr 1.9, at baseline - BNP >6000, highest of all prior visits - albumin 2.9 Giving 1000mg ceftriaxone and 500mg azithromycin for presumed CAP. Will admit for CAP, HEART score 5. 10/09/19 11:42 Discussed case with nurse Sawant and Dr. Iesha Combs at bedside. Good for admission to Med Surg. Discharge - Discharge Information Problems reviewed: Yes Clinical Impression/Diagnosis: Shortness of breath Pneumonia Qualifiers: Pneumonia type: due to unspecified organism Laterality: right Lung location: unspecified part of lung Qualified Code(s): J18.9 - Pneumonia, unspecified organism Condition: Stable Disposition: HOME - Admission Yes - Follow up/Referral - Patient Discharge Instructions - Post Discharge Activity
--- NOTE | 2019-10-09 07:40 | PDOC ---
Attending Attestation - Resident Resident Name: Mauri Haynes - ED Attending Attestation I have performed the following: I have examined & evaluated the patient, The case was reviewed & discussed with the resident, I agree w/resident's findings & plan, Exceptions are as noted
[2019-10-09 09:36] LABS: BASO % 0.8 % (0-2.0); EOS % 0.5 % (0-4.5); HEMATOCRIT 28.2 % (32.4-45.2); HEMOGLOBIN 8.8 GM/dL (10.7-15.3); LYMPH % 11.7 % (8-40); MCHC 31.3 g/dl (32.0-36.0); MEAN CELL VOLUME 67.1 fl (80-96); MEAN PLT VOLUME 10.2 fl (7.5-11.1); MONO % 8.2 % (3.8-10.2); NEUT % 78.8 % (42.8-82.8); PLATELET COUNT 203 K/MM3 (134-434); RDW 16.1 % (11.6-15.6); WHITE BLOOD COUNT 11.9 K/mm3 (4.0-10.0)
[2019-10-09 09:38] LABS: VENOUS PC02 53.7 mmHg (38-52); VENOUS PH 7.33 (7.31-7.41)
[2019-10-09 09:39] LABS: VENOUS PO2 < 49 mmHg (28-48)
[2019-10-09 10:00] LABS: MAGNESIUM 2.2 mg/dL (1.8-2.4); N-TERMINAL BNP 6550.8 pg/ml (5-450); PHOSPHOROUS 3.4 mg/dL (2.5-4.9)
[2019-10-09 10:01] LABS: ALBUMIN 2.9 g/dl (3.4-5.0); BILIRUBIN,TOTAL 0.7 mg/dL (0.2-1); BLOOD UREA NITROGEN 30.2 mg/dL (7-18); CALCIUM 9.2 mg/dL (8.5-10.1); CREATININE 1.9 mg/dL (0.55-1.3)
[2019-10-09 10:03] LABS: POTASSIUM 6.1 mmol/L (3.5-5.1)
[2019-10-09] MEDS ORDERED: CEFTRIAXONE 1,000 MG in DEXTROSE 5%-WATER - 50 ML IVPB ONE (10:05)
[2019-10-09] MEDS ORDERED: AZITHROMYCIN IVPB 500 MG in DEXTROSE 5%-WATER - 250 ML IVPB ONE (10:05)
[2019-10-09 10:12] LABS: INR 1.07 (0.83-1.09); PROTHROMBIN TIME (PATIENT) 12.6 SEC (9.7-13.0)
[2019-10-09 10:14] LABS: ACTIVATED PTT 30.4 SECONDS (25.2-36.5)
--- NOTE | 2019-10-09 10:25 | EKG ---
Test Reason : Blood Pressure : / mmHG Vent. Rate : 101 BPM Atrial Rate : 101 BPM P-R Int : 000 ms QRS Dur : 156 ms QT Int : 400 ms P-R-T Axes : 000 110 -36 degrees QTc Int : 518 ms Ventricular-paced rhythm WHEN COMPARED WITH ECG OF 28-MAY-2019 19:00, VENT. RATE HAS INCREASED BY 37 BPM Confirmed by PAULINA BOLIVAR MD ([id number]) on 10/09/2019 10:24:53 AM Referred By: Confirmed By:PAULINA BOLIVAR MD
[2019-10-09] MEDS ORDERED: AZITHROMYCIN IVPB 500 MG/250 ML BAG IVPB ONE (10:33)
[2019-10-09] MEDS ORDERED: CEFTRIAXONE 1 GM/50 ML BAG ONE (10:33)
[2019-10-09 11:14] LABS: BILIRUBIN,TOTAL 0.7 mg/dL (0.2-1); CALCIUM 9.1 mg/dL (8.5-10.1); CREATININE 1.8 mg/dL (0.55-1.3); POTASSIUM 5.3 mmol/L (3.5-5.1); TOT PROT 6.9 g/dl (6.4-8.2)
[2019-10-09] MEDS ORDERED: FUROSEMIDE 40 MG/4 ML INJECTABLE VIAL IVPUSH ONE (11:19)
[2019-10-09] MEDS ORDERED: FUROSEMIDE 40 MG/4 ML INJECTABLE VIAL ONE (11:33)
--- NOTE | 2019-10-09 12:14 | PDOC ---
Documentation entered by Darlyn Aguila SCRIBE, acting as scribe for Jermaine Borges MD. Jermaine Borges MD: This documentation has been prepared by the Ayla benton Xhesika, SCRIBE, under my direction and personally reviewed by me in its entirety. I confirm that the documentation accurately reflects all work, treatment, procedures, and medical decision making performed by me. Attending Attestation - Resident Resident Name: AnthonyxiaoMauri - ED Attending Attestation I have performed the following: I have examined & evaluated the patient, The case was reviewed & discussed with the resident, I agree w/resident's findings & plan, Exceptions are as noted - HPI HPI: 10/09/19 09:18 The patient is a 74 year old female with a significant past medical history of COPD (home nebs, no home O2), CAD s/p pacemaker, HTN, HLD, IDDM, anemia, chronic venous insufficiency, renal insufficiency, GERD, and OA who presents to our ED with 3 days of SOB, fever (at home), and non productive cough. Aid at bedside notes the patient has been endorsing lower extremity edema and has not been sleeping well. The patient denies chest pain, headache and dizziness. Denies chills, nausea, vomiting, diarrhea, constipation, dysuria, frequency, urgency and hematuria. Allergies: NKDA Social Hx: Denies current smoking, drinking, or other substance usage. PCP: Iesha Florence - Physicial Exam PE: 10/09/19 09:19 Vitals: Triage Vital signs reviewed General Appearance: no acute distress, well nourished well developed, Neck: Supple;No Nuchal rigidity Chest Wall: Nontender Cardiac: Regular rate and rhythm, no murmurs, no rubs, no gallops, Lungs: (+) crackles at left base. Extremities: (+) 2+ pitting edema bilaterally. Skin: Warm and dry, no rashes or lesions, no petechiae Neuro: AOX3; Cranial Nerves 2-12 grossly c intact, Strength intact to all extremities, Sensation intact to all extremities Psych: normal mood, normal affect - Medical Decision Making 10/09/19 12:14 Left lower lobe pneumonia on chest x-ray patient also with CHF exacerbation We will admit to hospital for IV antibiotics given age comorbidities high PSI score and diuresis
[2019-10-09] MEDS ORDERED: ALBUTEROL SO4 2.5/IPRATROPIUM 0.5 INH SOL 3 ML VIAL.NEB. NEB PRN (13:27)
[2019-10-09] MEDS ORDERED: MELATONIN 5 MG TABLETS PO PRN (13:27)
[2019-10-09] MEDS ORDERED: ACETAMINOPHEN 325 MG TABLET (FP) PO PRN (13:28)
[2019-10-09 13:33] LABS: ANISOCYTOSIS 1+; MACROCYTOSIS 1+; OVALOCYTE 1+; PLATELET ESTIMATE NORMAL; TARGET CELLS 1+
--- NOTE | 2019-10-09 13:40 | HP ---
Admitting History and Physical - Primary Care Physician PCP: Iesha Combs - Admission History of Present Illness: Pt seen/ examined in er chart reviewed case d/w Er resident Per ER records and I concur The patient is a 74 year old female with a significant past medical history of COPD (home nebs, no home O2), CAD s/p pacemaker, HTN, HLD, IDDM, anemia, chronic venous insufficiency, renal insufficiency, GERD, and OA who presents to our ED with 3 days of SOB, fever (at home), and non productive cough. Aid at bedside notes the patient has been endorsing lower extremity edema and has not been sleeping well. The patient denies chest pain, headache and dizziness. Denies chills, nausea, vomiting, diarrhea, constipation, dysuria, frequency, urgency and hematuria. Pt found in chf exac as well as Pneumonia Given abx and i/v lasix I also d/w Aid also History Source: Medical Record, Caregiver Limitations to Obtaining History: Clinical Condition - Past Medical History Cardiovascular: Yes: CAD (PCI/STENT), HTN, Hyperlipdemia, Other (RESOLUTION REP-D) Pulmonary: Yes: COPD Gastrointestinal: Yes: GERD, Other (anemia, IRON DEF) Renal/: Yes: Renal Inusuff Heme/Onc: Yes: Anemia Musculoskeletal: Yes: Osteoarthritis Rheumatology: Yes: Gout Endocrine: Yes: Diabetes Mellitus - Past Surgical History Past Surgical History: Yes: AICD, Permanent Pacemaker, Stent - Smoking History Smoking history: Unknown if ever smoked Have you smoked in the past 12 months: No Aproximately how many cigarettes per day: 0 - Alcohol/Substance Use Hx Alcohol Use: No History of Substance Use: reports: None - Social 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) History of Recent Travel: No Home Medications - Allergies Allergies/Adverse Reactions: Allergies Allergy/AdvReac Type Severity Reaction Status Date / Time No Known Allergies Allergy Verified 10/09/19 06:58 - Home Medications Home Medications: Ambulatory Orders Allopurinol [Zyloprim -] 100 mg PO DAILY 02/24/16 Cholecalciferol (Vitamin D3) [Vitamin D3] 1,000 unit PO DAILY 05/24/18 Furosemide [Lasix -] 40 mg PO DAILY 05/24/18 Pravastatin Sodium 20 mg PO HS 05/24/18 Aspirin Coated [Ecotrin -] 81 mg PO DAILY tablet.ec 01/30/19 Amlodipine Besylate 5 mg PO DAILY 03/14/19 Clopidogrel Bisulfate [Clopidogrel] 75 mg PO DAILY 03/14/19 Albuterol 2.5/Ipratropium 0.5 [Duoneb -] 1 amp NEB RTID amp 03/20/19 Valsartan [Diovan] 40 mg PO DAILY tablet 03/20/19 Gabapentin [Neurontin -] 300 mg PO BID #60 capsule 03/28/19 Lactobacillus Acidophilus [Bacid -] 1 tab PO DAILY #30 tab 03/28/19 Albuterol 2.5/Ipratropium 0.5 [Duoneb -] 1 amp NEB RQID #14 amp 05/31/19 Carvedilol [Coreg -] 6.25 mg PO BID #60 tablet 05/31/19 Insulin Sliding Scale [Novolog Vial Sliding Scale -] 1 vial SQ TIDAC #30 units 05/31/19 Insulin (Levemir) [Levemir Vial] 20 units SQ BID@0700,2200 10/09/19 Omeprazole 1 tab PO DAILY 10/09/19 Sevelamer Carbonate [Renvela -] 1 tab PO AC 10/09/19 Review of Systems - Review of Systems Constitutional: reports: Fever, Weakness Eyes: reports: No Symptoms Neck: reports: No Symptoms Cardiovascular: reports: No Symptoms Respiratory: reports: Cough, SOB Gastrointestinal: reports: No Symptoms Genitourinary: reports: No Symptoms Psychiatric: reports: Hallucinations (Insomnia), Other Physical Examination Vital Signs: Vital Signs Temperature 98.4 F 10/09/19 06:55 Pulse Rate 92 H 10/09/19 13:18 Respiratory Rate 22 H 10/09/19 13:18 Blood Pressure 172/77 H 10/09/19 06:55 O2 Sat by Pulse Oximetry (%) 98 10/09/19 13:18 Constitutional: Yes: No Distress, Obese Eyes: Yes: Conjunctiva Clear Neck: Yes: Supple Cardiovascular: Yes: Regular Rate and Rhythm Respiratory: Yes: Diminished Gastrointestinal: Yes: Normal Bowel Sounds, Soft, Abdomen, Obese Edema: LLE: 2+, RLE: 2+ Peripheral Pulses WNL: Yes Neurological: Yes: Alert Labs: CBC, BMP 10/09/19 09:16 10/09/19 10:03 Imaging - Results Chest X-ray: Report Reviewed EKG: Report Reviewed Problem List - Problems (1) Insomnia Code(s): G47.00 - INSOMNIA, UNSPECIFIED (2) Hallucination, visual Code(s): R44.1 - VISUAL HALLUCINATIONS (3) Pneumonia Code(s): J18.9 - PNEUMONIA, UNSPECIFIED ORGANISM Qualifiers: Pneumonia type: due to unspecified organism Laterality: right Lung location: unspecified part of lung Qualified Code(s): J18.9 - Pneumonia, unspecified organism (4) Shortness of breath Code(s): R06.02 - SHORTNESS OF BREATH (5) Acute CHF Code(s): I50.9 - HEART FAILURE, UNSPECIFIED Qualifiers: Heart failure type: combined systolic and diastolic Qualified Code(s): I50.41 - Acute combined systolic (congestive) and diastolic (congestive) heart failure (6) Biventricular ICD (implantable cardioverter-defibrillator) in place Code(s): Z95.810 - PRESENCE OF AUTOMATIC (IMPLANTABLE) CARDIAC DEFIBRILLATOR (7) CAD (coronary artery disease) Code(s): I25.10 - ATHSCL HEART DISEASE OF [place] CORONARY ARTERY W/O ANG PCTRS Qualifiers: Coronary Disease-Associated Artery/Lesion type: unspecified vessel or lesion type Associated angina: without angina (8) CKD (chronic kidney disease) Code(s): N18.9 - CHRONIC KIDNEY DISEASE, UNSPECIFIED (9) Diabetes Code(s): E11.9 - TYPE 2 DIABETES MELLITUS WITHOUT COMPLICATIONS Qualifiers: Diabetes mellitus type: type 2 Chronic kidney disease stage: stage 3 ( moderate) (10) Fever Code(s): R50.9 - FEVER, UNSPECIFIED Qualifiers: Encounter type: initial encounter Assessment/Plan Discussed Abx Orders written Monitor bgm i/v lasix cardio eval Melatonin d/c jim- pt hallucinates will follow
[2019-10-09] MEDS: INSULIN SLIDING SCALE (NOVOLOG) 1 VIAL SQ SCH (16:52)
[2019-10-09 17:04] LABS: URINE APPEARANCE CLEAR; URINE BILIRUBIN NEGATIVE (NEGATIVE); URINE COLOR YELLOW; URINE GLUCOSE (UA) NEGATIVE (NEGATIVE); URINE KETONE NEGATIVE (NEGATIVE)
[2019-10-09 17:05] LABS: PH,URINE 6.5 (5.0-8.0); URINE LEUK ESTERASE NEGATIVE (NEGATIVE); URINE NITRITE NEGATIVE (NEGATIVE); URINE PROTEIN NEGATIVE (NEGATIVE); URINE UROBILINOGEN 0.2 mg/dL (0.2-1.0)
[2019-10-09] MEDS: ATORVASTATIN CA 10 MG TABLET (FP) PO SCH (23:58)
[2019-10-09] MEDS: CARVEDILOL 6.25 MG TABLET (FP) PO SCH (23:59)
[2019-10-10] MEDS: HEPARIN NA (PORCINE) 5,000 UNITS/ML 1ML VIAL SQ SCH ×3 (00:02→22:00)
[2019-10-10] MEDS: INSULIN (LEVEMIR) 100 UNITS/ML UNITS SQ SCH ×3 (07:05→22:02)
[2019-10-10] MEDS: INSULIN SLIDING SCALE (NOVOLOG) 1 VIAL SQ SCH ×2 (07:07→16:37)
[2019-10-10 08:58] LABS: BASO % 0.5 % (0-2.0); EOS % 4.4 % (0-4.5); HEMATOCRIT 25.1 % (32.4-45.2); HEMOGLOBIN 8.1 GM/dL (10.7-15.3); MCH 21.5 pg (25.7-33.7); MCHC 32.4 g/dl (32.0-36.0); MEAN CELL VOLUME 66.4 fl (80-96); MEAN PLT VOLUME 9.9 fl (7.5-11.1); MONO % 9.7 % (3.8-10.2); NEUT % 67.4 % (42.8-82.8); PLATELET COUNT 184 K/MM3 (134-434); RBC 3.78 M/mm3 (3.60-5.2); RDW 15.3 % (11.6-15.6); WHITE BLOOD COUNT 7.6 K/mm3 (4.0-10.0)
[2019-10-10 10:39] LABS: ALBUMIN 2.5 g/dl (3.4-5.0); BILIRUBIN,TOTAL 0.5 mg/dL (0.2-1); BLOOD UREA NITROGEN 34.1 mg/dL (7-18); CALCIUM 8.8 mg/dL (8.5-10.1); POTASSIUM 4.8 mmol/L (3.5-5.1); TOT PROT 6.1 g/dl (6.4-8.2); URIC ACID 4.7 mg/dL (2.6-7.2)
[2019-10-10] MEDS ORDERED: DEXTROSE 5%-WATER - 50 ML IVPB ONE (11:06)
[2019-10-10] MEDS ORDERED: cefTRIAXone SODIUM 1 GM VIAL ONE (11:06)
[2019-10-10] MEDS: CEFTRIAXONE 1 GM in DEXTROSE 5%-WATER - 50 ML IVPB SCH (11:27)
[2019-10-10] MEDS: CLOPIDOGREL BISULFATE 75 MG TABLET (FP) PO SCH (11:28)
[2019-10-10] MEDS: amLODIPine BESYLATE 5 MG TABLET (FP) PO SCH (11:28)
[2019-10-10] MEDS: VALSARTAN 40 MG TABLET (FP) PO SCH (11:28)
[2019-10-10] MEDS: ALLOPURINOL 100 MG TABLET (FP) PO SCH (11:28)
[2019-10-10] MEDS: ASPIRIN COATED 81 MG TABLET.EC PO SCH (11:28)
[2019-10-10] MEDS: CHOLECALCIFEROL (VIT D3) 1,000 UNIT (25 MCG) TABLET PO SCH (11:28)
[2019-10-10] MEDS: SEVELAMER CARBONATE 800 MG TAB (FP) PO SCH ×3 (11:28→18:18)
[2019-10-10] MEDS: FUROSEMIDE 40 MG/4 ML INJECTABLE VIAL IVPUSH SCH (11:29)
[2019-10-10] MEDS: CARVEDILOL 6.25 MG TABLET (FP) PO SCH ×2 (11:29→22:01)
[2019-10-10] MEDS: PANTOPRAZOLE 20 MG TABLET (FP) PO SCH (11:29)
[2019-10-10] MEDS: LACTOBACILLUS ACIDOPHILUS 1 TABLET PO SCH (11:29)
--- NOTE | 2019-10-10 12:10 | CON.CARD ---
Consult Consult Specialty:: Cardiology Referred by:: Iesha Combs MD Reason for Consultation:: Cardiac evaluation - History of Present Illness Chief Complaint: Pedal edema, SOB, productive cough History of Present Illness: Patient is a 74 year old female (Citizen Of [place] descent) well known to me with underlying history of CAD s/p PCI/stent, HTN, T2DM, hypercholesterolemia, post BiV ICD ([employer]), syncope, anemia, chronic venous insufficiency, CKD and GERD who presented to [facility] with shortness of brath, fever, nonproductive cough and pedal edema. Currently, she denies chest pain or palpitations. She denies paroxysmal nocturnal dyspnea or orthopnea. She denies nausea, vomiting, diarrhea or abdominal pain. She denies headache or lightheadedness. 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) Pulmonary: Yes: COPD Gastrointestinal: Yes: GERD, Other (anemia, IRON DEF) Renal/: Yes: Renal Inusuff Musculoskeletal: Yes: Osteoarthritis Rheumatology: Yes: Gout Endocrine: Yes: Diabetes Mellitus - Past Surgical History Past Surgical History: Yes: AICD, Stent - Alcohol/Substance Use Hx Alcohol Use: No History of Substance Use: reports: None - Smoking History Smoking history: Never smoked Have you smoked in the past 12 months: No Aproximately how many cigarettes per day: 0 - Social History 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) History of Recent Travel: No Home Medications - Allergies Allergies/Adverse Reactions: Allergies Allergy/AdvReac Type Severity Reaction Status Date / Time No Known Allergies Allergy Verified 10/09/19 06:58 - Home Medications Home Medications: Ambulatory Orders Allopurinol [Zyloprim -] 100 mg PO DAILY 02/24/16 Cholecalciferol (Vitamin D3) [Vitamin D3] 1,000 unit PO DAILY 05/24/18 Furosemide [Lasix -] 40 mg PO DAILY 05/24/18 Pravastatin Sodium 20 mg PO HS 05/24/18 Aspirin Coated [Ecotrin -] 81 mg PO DAILY tablet.ec 01/30/19 Amlodipine Besylate 5 mg PO DAILY 03/14/19 Clopidogrel Bisulfate [Clopidogrel] 75 mg PO DAILY 03/14/19 Albuterol 2.5/Ipratropium 0.5 [Duoneb -] 1 amp NEB RTID amp 03/20/19 Valsartan [Diovan] 40 mg PO DAILY tablet 03/20/19 Gabapentin [Neurontin -] 300 mg PO BID #60 capsule 03/28/19 Lactobacillus Acidophilus [Bacid -] 1 tab PO DAILY #30 tab 03/28/19 Albuterol 2.5/Ipratropium 0.5 [Duoneb -] 1 amp NEB RQID #14 amp 05/31/19 Carvedilol [Coreg -] 6.25 mg PO BID #60 tablet 05/31/19 Insulin Sliding Scale [Novolog Vial Sliding Scale -] 1 vial SQ TIDAC #30 units 05/31/19 Insulin (Levemir) [Levemir Vial] 20 units SQ BID@0700,2200 10/09/19 Omeprazole 1 tab PO DAILY 10/09/19 Sevelamer Carbonate [Renvela -] 1 tab PO AC 10/09/19 Family Medical History Family History: Denies Review of Systems - Review of Systems Constitutional: reports: Fever. denies: Chills Cardiovascular: reports: Shortness of Breath. denies: Chest Pain, Palpitations Respiratory: reports: Cough, SOB. denies: Hemoptysis, Orthopnea, PND, Wheezing Gastrointestinal: denies: Abdominal Pain, Constipation, Diarrhea, Melena, Nausea , Rectal Bleeding, Vomiting Musculoskeletal: denies: Back Pain, Joint Pain Neurological: denies: Dizziness, Headache, Seizure, Syncope Vital Signs: Vital Signs Temperature 99.0 F 10/10/19 06:51 Pulse Rate 81 10/10/19 06:51 Respiratory Rate 20 10/10/19 06:51 Blood Pressure 129/62 10/10/19 06:51 O2 Sat by Pulse Oximetry (%) 98 10/09/19 22:00 Neck: Yes: Supple Respiratory: Yes: Diminished Gastrointestinal: Yes: Normal Bowel Sounds, Soft, Abdomen, Obese. No: Tenderness Cardiovascular: Yes: Regular Rate and Rhythm JVD: No PMI: Non-Displaced Heart Sounds: Yes: S1, S2. No: Gallop Murmur: No: Systolic Murmur Edema: Yes - Other Data Labs, Other Data: CBC, BMP 10/10/19 08:10 10/10/19 08:10 INR, PTT INR 1.07 (0.83-1.09) 10/09/19 09:16 Laboratory Results - last 24 hr 10/09/19 10/09/19 10/09/19 09:16 15:40 16:51 WBC RBC Hgb Hct MCV MCH MCHC RDW Plt Count MPV Absolute Neuts (auto) Neutrophils % Lymphocytes % Monocytes % Eosinophils % Basophils % Nucleated RBC % Hypochromia 0 Platelet Estimate Normal Polychromasia 0 Poikilocytosis 1+ Anisocytosis 1+ Microcytosis 1+ Macrocytosis 1+ Target Cells 1+ Ovalocytes 1+ Sodium Potassium Chloride Carbon Dioxide Anion Gap BUN Creatinine Est GFR (CKD-EPI)AfAm Est GFR (CKD-EPI)NonAf POC Glucometer 300 Random Glucose Hemoglobin A1c % Uric Acid Calcium Magnesium Total Bilirubin AST ALT Alkaline Phosphatase Total Protein Albumin TSH Urine Color Yellow Urine Appearance Clear Urine pH 6.5 D Ur Specific [place] 1.020 Urine Protein Negative Urine Glucose (UA) Negative Urine Ketones Negative Urine Blood Negative Urine Nitrite Negative Urine Bilirubin Negative Urine Urobilinogen 0.2 Ur Leukocyte Esterase Negative 10/09/19 10/10/19 10/10/19 23:53 07:03 08:10 WBC 7.6 RBC 3.78 Hgb 8.1 L Hct 25.1 L MCV 66.4 L MCH 21.5 L MCHC 32.4 RDW 15.3 Plt Count 184 MPV 9.9 Absolute Neuts (auto) 5.1 Neutrophils % 67.4 Lymphocytes % 18.0 D Monocytes % 9.7 Eosinophils % 4.4 D Basophils % 0.5 Nucleated RBC % 0 Hypochromia Platelet Estimate Polychromasia Poikilocytosis Anisocytosis Microcytosis Macrocytosis Target Cells Ovalocytes Sodium Potassium Chloride Carbon Dioxide Anion Gap BUN Creatinine Est GFR (CKD-EPI)AfAm Est GFR (CKD-EPI)NonAf POC Glucometer 235 181 Random Glucose Hemoglobin A1c % Uric Acid Calcium Magnesium Total Bilirubin AST ALT Alkaline Phosphatase Total Protein Albumin TSH Urine Color Urine Appearance Urine pH Ur Specific [place] Urine Protein Urine Glucose (UA) Urine Ketones Urine Blood Urine Nitrite Urine Bilirubin Urine Urobilinogen Ur Leukocyte Esterase 10/10/19 10/10/19 08:10 08:10 WBC RBC Hgb Hct MCV MCH MCHC RDW Plt Count MPV Absolute Neuts (auto) Neutrophils % Lymphocytes % Monocytes % Eosinophils % Basophils % Nucleated RBC % Hypochromia Platelet Estimate Polychromasia Poikilocytosis Anisocytosis Microcytosis Macrocytosis Target Cells Ovalocytes Sodium 142 Potassium 4.8 Chloride 107 Carbon Dioxide 29 Anion Gap 6 L BUN 34.1 H Creatinine 2.0 H Est GFR (CKD-EPI)AfAm 27.61 Est GFR (CKD-EPI)NonAf 23.82 POC Glucometer Random Glucose 186 H Hemoglobin A1c % 12.2 H Uric Acid 4.7 Calcium 8.8 Magnesium 2.0 Total Bilirubin 0.5 AST 6 L ALT 9 L Alkaline Phosphatase 122 H Total Protein 6.1 L Albumin 2.5 L TSH 2.54 Urine Color Urine Appearance Urine pH Ur Specific [place] Urine Protein Urine Glucose (UA) Urine Ketones Urine Blood Urine Nitrite Urine Bilirubin Urine Urobilinogen Ur Leukocyte Esterase Ventricular paced rhythm Problem List - Problems (1) T2DM (type 2 diabetes mellitus) Code(s): E11.9 - TYPE 2 DIABETES MELLITUS WITHOUT COMPLICATIONS (2) Pneumonia Code(s): J18.9 - PNEUMONIA, UNSPECIFIED ORGANISM Qualifiers: Pneumonia type: due to unspecified organism Laterality: right Lung location: unspecified part of lung Qualified Code(s): J18.9 - Pneumonia, unspecified organism (3) Acute respiratory failure with hypercapnia Code(s): J96.02 - ACUTE RESPIRATORY FAILURE WITH HYPERCAPNIA (4) Biventricular ICD (implantable cardioverter-defibrillator) in place Code(s): Z95.810 - PRESENCE OF AUTOMATIC (IMPLANTABLE) CARDIAC DEFIBRILLATOR (5) CAD (coronary artery disease) Code(s): I25.10 - ATHSCL HEART DISEASE OF [place] CORONARY ARTERY W/O ANG PCTRS Qualifiers: Coronary Disease-Associated Artery/Lesion type: unspecified vessel or lesion type Associated angina: without angina (6) CHF (congestive heart failure) Code(s): I50.9 - HEART FAILURE, UNSPECIFIED Qualifiers: Heart failure type: combined systolic and diastolic Heart failure chronicity: acute on chronic Qualified Code(s): I50.43 - Acute on chronic combined systolic (congestive) and diastolic (congestive) heart failure (7) CKD (chronic kidney disease) Code(s): N18.9 - CHRONIC KIDNEY DISEASE, UNSPECIFIED (8) HTN (hypertension) Code(s): I10 - ESSENTIAL (PRIMARY) HYPERTENSION Qualifiers: Hypertension type: essential hypertension Qualified Code(s): I10 - Essential (primary) hypertension (9) History of percutaneous coronary intervention Code(s): Z98.89 - OTHER SPECIFIED POSTPROCEDURAL STATES * DO NOT USE * (10) Hypercholesterolemia Code(s): E78.0 - PURE HYPERCHOLESTEROLEMIA * DO NOT USE * (11) Hyperlipidemia Code(s): E78.5 - HYPERLIPIDEMIA, UNSPECIFIED Qualifiers: Hyperlipidemia type: pure hypercholesterolemia Qualified Code(s): E78.00 - Pure hypercholesterolemia, unspecified; E78.0 - Pure hypercholesterolemia (12) SOB (shortness of breath) on exertion Code(s): R06.02 - SHORTNESS OF BREATH Assessment/Plan 1. LV systolic/diastolic dysfunction, acute on chronic failure NYHA class 1-2 2. CAD s/p PCI/stent, angina pectoris 3. HTN 4. Hypercholesterolemia 5. 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 History of syncope 8. Exogenous obesity PLAN: 1. Continue Carvedilol, Amlodipine and Valsartan as tolerated 2. Continue Furosemide IV and monitor renal function and electrolytes 3. Continue ASA and Plavix 4. Continue Atorvastatin Further plans are to follow Nima Mcgill MD
--- NOTE | 2019-10-10 13:03 | PN ---
Progress Note (short form) - Note Progress Note: feels better cousin at her bedside admits she eats and drinks too much Vital Signs - 24 hr 10/09/19 10/09/19 10/09/19 13:18 14:20 17:31 Temperature 98 F Pulse Rate Pulse Rate [ 92 H 90 87 Apical] Respiratory 22 H 22 H 19 Rate Blood Pressure Blood Pressure 157/82 159/68 [Left Arm] O2 Sat by Pulse 98 98 98 Oximetry (%) 10/09/19 10/09/19 10/09/19 17:32 17:33 22:00 Temperature 98.5 F Pulse Rate 87 61 Pulse Rate [ Apical] Respiratory 20 Rate Blood Pressure 153/78 Blood Pressure [Left Arm] O2 Sat by Pulse 98 98 98 Oximetry (%) 10/10/19 10/10/19 06:51 10:00 Temperature 99.0 F 98.8 F Pulse Rate 81 79 Pulse Rate [ Apical] Respiratory 20 18 Rate Blood Pressure 129/62 136/75 Blood Pressure [Left Arm] O2 Sat by Pulse Oximetry (%) Current Medications Generic Name Dose Route Start Last Admin Trade Name Freq PRN Reason Stop Dose Admin Acetaminophen 650 mg 10/09/19 13:28 Tylenol - PO Q4H PRN PAIN LEVEL 4 - 6 Albuterol/Ipratropium 1 amp 10/09/19 13:27 Duoneb - NEB Q6H PRN SHORTNESS OF BREATH Allopurinol 100 mg 10/10/19 10:00 10/10/19 11:28 Zyloprim - PO 100 mg DAILY MARTIN Administration Amlodipine Besylate 5 mg 10/10/19 10:00 10/10/19 11:28 Norvasc - PO 5 mg DAILY MARTIN Administration Aspirin 81 mg 10/10/19 10:00 10/10/19 11:28 Ecotrin - PO 81 mg DAILY MARTIN Administration Atorvastatin Calcium 10 mg 10/09/19 22:00 10/09/19 23:58 Lipitor - PO 10 mg HS MARTIN Administration Carvedilol 6.25 mg 10/09/19 22:00 10/10/19 11:29 Coreg - PO 6.25 mg BID MARTIN Administration Cholecalciferol 1,000 unit 10/10/19 10:00 10/10/19 11:28 Vitamin D3 - PO 1,000 unit DAILY MARTIN Administration Clopidogrel Bisulfate 75 mg 10/10/19 10:00 10/10/19 11:28 Plavix - PO 75 mg DAILY MARTIN Administration Furosemide 40 mg 10/10/19 10:00 10/10/19 11:29 Lasix Injection - IVPUSH 40 mg DAILY MARTIN Administration Heparin Sodium (Porcine) 5,000 unit 10/09/19 22:00 10/10/19 11:29 Heparin - SQ 5,000 unit BID MARTIN Administration Ceftriaxone Sodium 1 gm/ 50 mls @ 100 mls/hr 10/10/19 10:00 10/10/19 11:27 Dextrose IVPB 100 mls/hr DAILY MARTIN Administration Protocol Insulin Aspart 1 vial 10/09/19 16:30 10/10/19 07:07 Novolog Vial Sliding Scale - SQ 3 unit BIDAC MARTIN Administration Protocol Insulin Detemir 20 units 10/09/19 22:00 10/10/19 07:05 Levemir Vial SQ 20 unit BID@0700,2200 MARTIN Administration Lactobacillus Acidophilus 1 tab 10/10/19 10:00 10/10/19 11:29 Bacid - PO 1 tab DAILY MARTIN Administration Melatonin 5 mg 10/09/19 13:27 Melatonin PO HS PRN INSOMNIA Pantoprazole Sodium 20 mg 10/10/19 10:00 10/10/19 11:29 Protonix - PO 20 mg DAILY MARTIN Administration Sevelamer Carbonate 800 mg 10/10/19 08:45 10/10/19 12:19 Renvela - PO 800 mg TIDCM MARTIN Administration Valsartan 40 mg 10/10/19 10:00 10/10/19 11:28 Diovan - PO 40 mg DAILY MARTIN Administration Laboratory Results - last 24 hr 10/09/19 10/09/19 10/09/19 09:16 15:40 16:51 WBC RBC Hgb Hct MCV MCH MCHC RDW Plt Count MPV Absolute Neuts (auto) Neutrophils % Lymphocytes % Monocytes % Eosinophils % Basophils % Nucleated RBC % Hypochromia 0 Platelet Estimate Normal Polychromasia 0 Poikilocytosis 1+ Anisocytosis 1+ Microcytosis 1+ Macrocytosis 1+ Target Cells 1+ Ovalocytes 1+ Sodium Potassium Chloride Carbon Dioxide Anion Gap BUN Creatinine Est GFR (CKD-EPI)AfAm Est GFR (CKD-EPI)NonAf POC Glucometer 300 Random Glucose Hemoglobin A1c % Uric Acid Calcium Magnesium Total Bilirubin AST ALT Alkaline Phosphatase Total Protein Albumin TSH Urine Color Yellow Urine Appearance Clear Urine pH 6.5 D Ur Specific [place] 1.020 Urine Protein Negative Urine Glucose (UA) Negative Urine Ketones Negative Urine Blood Negative Urine Nitrite Negative Urine Bilirubin Negative Urine Urobilinogen 0.2 Ur Leukocyte Esterase Negative 10/09/19 10/10/19 10/10/19 23:53 07:03 08:10 WBC 7.6 RBC 3.78 Hgb 8.1 L Hct 25.1 L MCV 66.4 L MCH 21.5 L MCHC 32.4 RDW 15.3 Plt Count 184 MPV 9.9 Absolute Neuts (auto) 5.1 Neutrophils % 67.4 Lymphocytes % 18.0 D Monocytes % 9.7 Eosinophils % 4.4 D Basophils % 0.5 Nucleated RBC % 0 Hypochromia Platelet Estimate Polychromasia Poikilocytosis Anisocytosis Microcytosis Macrocytosis Target Cells Ovalocytes Sodium Potassium Chloride Carbon Dioxide Anion Gap BUN Creatinine Est GFR (CKD-EPI)AfAm Est GFR (CKD-EPI)NonAf POC Glucometer 235 181 Random Glucose Hemoglobin A1c % Uric Acid Calcium Magnesium Total Bilirubin AST ALT Alkaline Phosphatase Total Protein Albumin TSH Urine Color Urine Appearance Urine pH Ur Specific [place] Urine Protein Urine Glucose (UA) Urine Ketones Urine Blood Urine Nitrite Urine Bilirubin Urine Urobilinogen Ur Leukocyte Esterase 10/10/19 10/10/19 08:10 08:10 WBC RBC Hgb Hct MCV MCH MCHC RDW Plt Count MPV Absolute Neuts (auto) Neutrophils % Lymphocytes % Monocytes % Eosinophils % Basophils % Nucleated RBC % Hypochromia Platelet Estimate Polychromasia Poikilocytosis Anisocytosis Microcytosis Macrocytosis Target Cells Ovalocytes Sodium 142 Potassium 4.8 Chloride 107 Carbon Dioxide 29 Anion Gap 6 L BUN 34.1 H Creatinine 2.0 H Est GFR (CKD-EPI)AfAm 27.61 Est GFR (CKD-EPI)NonAf 23.82 POC Glucometer Random Glucose 186 H Hemoglobin A1c % 12.2 H Uric Acid 4.7 Calcium 8.8 Magnesium 2.0 Total Bilirubin 0.5 AST 6 L ALT 9 L Alkaline Phosphatase 122 H Total Protein 6.1 L Albumin 2.5 L TSH 2.54 Urine Color Urine Appearance Urine pH Ur Specific [place] Urine Protein Urine Glucose (UA) Urine Ketones Urine Blood Urine Nitrite Urine Bilirubin Urine Urobilinogen Ur Leukocyte Esterase Microbiology 10/09/19 15:30 Urine For Antigen Detection Legionella Antigen - Final 10/09/19 15:30 Urine For Antigen Detection Streptococcus pneumoniae Antigen (M - Final 10/09/19 09:16 Blood - Peripheral Venous Blood Culture - Preliminary NO GROWTH OBTAINED AFTER 24 HOURS, INCUBATION TO CONTINUE FOR 4 DAYS. 10/09/19 09:16 Blood - Peripheral Venous Blood Culture - Preliminary NO GROWTH OBTAINED AFTER 24 HOURS, INCUBATION TO CONTINUE FOR 4 DAYS. S1 S2 RRR Lungs decreased Abd- soft, obese, NT edema++ PLAN Increase Levemir A1C 12 Continue with Lasix renal function about the same iv antibiotics for infiltrates in lung urine antigens negative for pneumonia OOB PT eval Problem List - Problems (1) Pneumonia Code(s): J18.9 - PNEUMONIA, UNSPECIFIED ORGANISM Qualifiers: Pneumonia type: due to unspecified organism Laterality: right Lung location: unspecified part of lung Qualified Code(s): J18.9 - Pneumonia, unspecified organism (2) Acute CHF Code(s): I50.9 - HEART FAILURE, UNSPECIFIED Qualifiers: Heart failure type: combined systolic and diastolic Qualified Code(s): I50.41 - Acute combined systolic (congestive) and diastolic (congestive) heart failure (3) Acute metabolic encephalopathy Code(s): G93.41 - METABOLIC ENCEPHALOPATHY (4) T2DM (type 2 diabetes mellitus) Code(s): E11.9 - TYPE 2 DIABETES MELLITUS WITHOUT COMPLICATIONS (5) CKD (chronic kidney disease) Code(s): N18.9 - CHRONIC KIDNEY DISEASE, UNSPECIFIED (6) HTN (hypertension) Code(s): I10 - ESSENTIAL (PRIMARY) HYPERTENSION Qualifiers: Hypertension type: essential hypertension Qualified Code(s): I10 - Essential (primary) hypertension (7) Renal dysfunction Code(s): N28.9 - DISORDER OF KIDNEY AND URETER, UNSPECIFIED
[2019-10-10] MEDS ORDERED: INSULIN (NOVOLOG) ASPART 100 UNITS/ML 10ML VIAL ONE (18:07)
[2019-10-10] MEDS: ATORVASTATIN CA 10 MG TABLET (FP) PO SCH (22:01)
[2019-10-11] MEDS: INSULIN (LEVEMIR) 100 UNITS/ML UNITS SQ SCH ×2 (06:48→21:15)
[2019-10-11] MEDS: INSULIN SLIDING SCALE (NOVOLOG) 1 VIAL SQ SCH ×2 (06:48→17:28)
[2019-10-11] MEDS ORDERED: INSULIN (NOVOLOG) ASPART 100 UNITS/ML 10ML VIAL ONE (06:54)
--- NOTE | 2019-10-11 09:21 | PN ---
Progress Note, Physician Chief Complaint: Not in distress History of Present Illness: Patient was seen and examined. Awake and alert. Chart was reviewed Denies chest pain, SOB or palpitations - Current Medication List Current Medications: Active Medications Acetaminophen (Tylenol -) 650 mg PO Q4H PRN PRN Reason: PAIN LEVEL 4 - 6 Albuterol/Ipratropium (Duoneb -) 1 amp NEB Q6H PRN PRN Reason: SHORTNESS OF BREATH Allopurinol (Zyloprim -) 100 mg PO DAILY [facility] Last Admin: 10/10/19 11:28 Dose: 100 mg Amlodipine Besylate (Norvasc -) 5 mg PO DAILY [facility] Last Admin: 10/10/19 11:28 Dose: 5 mg Aspirin (Ecotrin -) 81 mg PO DAILY [facility] Last Admin: 10/10/19 11:28 Dose: 81 mg Atorvastatin Calcium (Lipitor -) 10 mg PO HS [facility] Last Admin: 10/10/19 22:01 Dose: 10 mg Carvedilol (Coreg -) 6.25 mg PO BID [facility] Last Admin: 10/10/19 22:01 Dose: 6.25 mg Cholecalciferol (Vitamin D3 -) 1,000 unit PO DAILY [facility] Last Admin: 10/10/19 11:28 Dose: 1,000 unit Clopidogrel Bisulfate (Plavix -) 75 mg PO DAILY [facility] Last Admin: 10/10/19 11:28 Dose: 75 mg Furosemide (Lasix Injection -) 40 mg IVPUSH DAILY [facility] Last Admin: 10/10/19 11:29 Dose: 40 mg Heparin Sodium (Porcine) (Heparin -) 5,000 unit SQ BID [facility] Last Admin: 10/10/19 22:00 Dose: 5,000 unit Ceftriaxone Sodium 1 gm/ (Dextrose) 50 mls @ 100 mls/hr IVPB DAILY [facility]; Protocol Last Admin: 10/10/19 11:27 Dose: 100 mls/hr Insulin Aspart (Novolog Vial Sliding Scale -) 1 vial SQ BIDAC [facility]; Protocol Last Admin: 10/11/19 06:48 Dose: 9 unit Insulin Detemir (Levemir Vial) 20 units SQ BID@0700,2200 [facility] Last Admin: 10/11/19 06:48 Dose: 20 unit Lactobacillus Acidophilus (Bacid -) 1 tab PO DAILY [facility] Last Admin: 10/10/19 11:29 Dose: 1 tab Melatonin (Melatonin) 5 mg PO HS PRN PRN Reason: INSOMNIA Last Admin: 10/10/19 22:02 Dose: 5 mg Pantoprazole Sodium (Protonix -) 20 mg PO DAILY [facility] Last Admin: 10/10/19 11:29 Dose: 20 mg Sevelamer Carbonate (Renvela -) 800 mg PO TIDCM [facility] Last Admin: 10/10/19 18:18 Dose: 800 mg Valsartan (Diovan -) 40 mg PO DAILY [facility] Last Admin: 10/10/19 11:28 Dose: 40 mg - Objective Vital Signs: Vital Signs Temperature 97.7 F 10/11/19 06:20 Pulse Rate 76 10/11/19 06:20 Respiratory Rate 20 10/11/19 06:20 Blood Pressure 127/64 10/11/19 06:20 O2 Sat by Pulse Oximetry (%) 98 10/10/19 21:00 Eyes: Yes: PERRL HENT: Yes: Atraumatic Neck: Yes: Supple Cardiovascular: Yes: Regular Rate and Rhythm, S1, S2 Respiratory: Yes: Diminished Gastrointestinal: Yes: Normal Bowel Sounds, Soft, Abdomen, Obese. No: Tenderness Edema: Yes Additional Findings/Remarks: - Review of Systems Constitutional: reports: Fever. denies: Chills Cardiovascular: reports: Shortness of Breath. denies: Chest Pain, Palpitations Respiratory: reports: Cough, SOB. denies: Hemoptysis, Orthopnea, PND, Wheezing Gastrointestinal: denies: Abdominal Pain, Constipation, Diarrhea, Melena, Nausea , Rectal Bleeding, Vomiting Musculoskeletal: denies: Back Pain, Joint Pain Neurological: denies: Dizziness, Headache, Seizure, Syncope Labs: CBC, BMP 10/10/19 08:10 10/10/19 08:10 INR, PTT INR 1.07 (0.83-1.09) 10/09/19 09:16 Problem List - Problems (1) T2DM (type 2 diabetes mellitus) Code(s): E11.9 - TYPE 2 DIABETES MELLITUS WITHOUT COMPLICATIONS (2) Pneumonia Code(s): J18.9 - PNEUMONIA, UNSPECIFIED ORGANISM Qualifiers: Pneumonia type: due to unspecified organism Laterality: right Lung location: unspecified part of lung Qualified Code(s): J18.9 - Pneumonia, unspecified organism (3) Acute respiratory failure with hypercapnia Code(s): J96.02 - ACUTE RESPIRATORY FAILURE WITH HYPERCAPNIA (4) Biventricular ICD (implantable cardioverter-defibrillator) in place Code(s): Z95.810 - PRESENCE OF AUTOMATIC (IMPLANTABLE) CARDIAC DEFIBRILLATOR (5) CAD (coronary artery disease) Code(s): I25.10 - ATHSCL HEART DISEASE OF [place] CORONARY ARTERY W/O ANG PCTRS Qualifiers: Coronary Disease-Associated Artery/Lesion type: unspecified vessel or lesion type Associated angina: without angina (6) CHF (congestive heart failure) Code(s): I50.9 - HEART FAILURE, UNSPECIFIED Qualifiers: Heart failure type: combined systolic and diastolic Heart failure chronicity: acute on chronic Qualified Code(s): I50.43 - Acute on chronic combined systolic (congestive) and diastolic (congestive) heart failure (7) CKD (chronic kidney disease) Code(s): N18.9 - CHRONIC KIDNEY DISEASE, UNSPECIFIED (8) HTN (hypertension) Code(s): I10 - ESSENTIAL (PRIMARY) HYPERTENSION Qualifiers: Hypertension type: essential hypertension Qualified Code(s): I10 - Essential (primary) hypertension (9) History of percutaneous coronary intervention Code(s): Z98.89 - OTHER SPECIFIED POSTPROCEDURAL STATES * DO NOT USE * (10) Hyperlipidemia Code(s): E78.5 - HYPERLIPIDEMIA, UNSPECIFIED Qualifiers: Hyperlipidemia type: pure hypercholesterolemia Qualified Code(s): E78.00 - Pure hypercholesterolemia, unspecified; E78.0 - Pure hypercholesterolemia (11) SOB (shortness of breath) on exertion Code(s): R06.02 - SHORTNESS OF BREATH Assessment/Plan 1. LV systolic/diastolic dysfunction, acute on chronic failure NYHA class 1-2 2. CAD s/p PCI/stent, angina pectoris 3. HTN 4. Hypercholesterolemia 5. 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 History of syncope 8. Exogenous obesity PLAN: 1. Continue Carvedilol, Amlodipine and Valsartan as tolerated 2. Continue Furosemide IV and monitor renal function and electrolytes. Monitor daily weight and I/Os 3. Continue ASA and Plavix 4. Continue Atorvastatin Further plans are to follow. Eventually follow up in office ([facility]) Nima Mcgill MD
[2019-10-11] MEDS: CEFTRIAXONE 1 GM in DEXTROSE 5%-WATER - 50 ML IVPB SCH ×2 (10:06→12:09)
--- NOTE | 2019-10-11 11:13 | PN ---
Progress Note (short form) - Note Progress Note: feels better no distress Vital Signs - 24 hr 10/10/19 10/10/19 10/10/19 14:00 17:05 21:00 Temperature 98.4 F 98.2 F Pulse Rate 82 82 Respiratory 18 20 20 Rate Blood Pressure 136/86 118/65 O2 Sat by Pulse 98 Oximetry (%) 10/10/19 10/11/19 22:13 06:20 Temperature 97.7 F Pulse Rate 83 76 Respiratory 20 20 Rate Blood Pressure 154/75 127/64 O2 Sat by Pulse Oximetry (%) Current Medications Generic Name Dose Route Start Last Admin Trade Name Freq PRN Reason Stop Dose Admin Acetaminophen 650 mg 10/09/19 13:28 Tylenol - PO Q4H PRN PAIN LEVEL 4 - 6 Albuterol/Ipratropium 1 amp 10/09/19 13:27 Duoneb - NEB Q6H PRN SHORTNESS OF BREATH Allopurinol 100 mg 10/10/19 10:00 10/10/19 11:28 Zyloprim - PO 100 mg DAILY [facility] Administration Amlodipine Besylate 5 mg 10/10/19 10:00 10/10/19 11:28 Norvasc - PO 5 mg DAILY [facility] Administration Aspirin 81 mg 10/10/19 10:00 10/10/19 11:28 Ecotrin - PO 81 mg DAILY [facility] Administration Atorvastatin Calcium 10 mg 10/09/19 22:00 10/10/19 22:01 Lipitor - PO 10 mg HS [facility] Administration Carvedilol 6.25 mg 10/09/19 22:00 10/10/19 22:01 Coreg - PO 6.25 mg BID [facility] Administration Cholecalciferol 1,000 unit 10/10/19 10:00 10/10/19 11:28 Vitamin D3 - PO 1,000 unit DAILY [facility] Administration Clopidogrel Bisulfate 75 mg 10/10/19 10:00 10/10/19 11:28 Plavix - PO 75 mg DAILY [facility] Administration Furosemide 40 mg 10/10/19 10:00 10/10/19 11:29 Lasix Injection - IVPUSH 40 mg DAILY [facility] Administration Heparin Sodium (Porcine) 5,000 unit 10/09/19 22:00 10/10/19 22:00 Heparin - SQ 5,000 unit BID [facility] Administration Insulin Aspart 1 vial 10/09/19 16:30 10/11/19 06:48 Novolog Vial Sliding Scale - SQ 9 unit BIDAC [facility] Administration Protocol Insulin Detemir 20 units 10/09/19 22:00 10/11/19 06:48 Levemir Vial SQ 20 unit BID@0700,2200 [facility] Administration Lactobacillus Acidophilus 1 tab 10/10/19 10:00 10/10/19 11:29 Bacid - PO 1 tab DAILY [facility] Administration Melatonin 5 mg 10/09/19 13:27 10/10/19 22:02 Melatonin PO 5 mg HS PRN Administration INSOMNIA Pantoprazole Sodium 20 mg 10/10/19 10:00 10/10/19 11:29 Protonix - PO 20 mg DAILY [facility] Administration Sevelamer Carbonate 800 mg 10/10/19 08:45 10/10/19 18:18 Renvela - PO 800 mg TIDCM [facility] Administration Valsartan 40 mg 10/10/19 10:00 10/10/19 11:28 Diovan - PO 40 mg DAILY [facility] Administration Laboratory Results - last 24 hr 10/10/19 10/10/19 10/11/19 16:36 21:43 06:46 POC Glucometer 279 349 301 Microbiology 10/09/19 09:16 Blood Culture - Preliminary Blood - Peripheral Venous NO GROWTH OBTAINED AFTER 48 HOURS, INCUBATION TO CONTINUE FOR 3 DAYS. 10/09/19 09:16 Blood Culture - Preliminary Blood - Peripheral Venous NO GROWTH OBTAINED AFTER 48 HOURS, INCUBATION TO CONTINUE FOR 3 DAYS. 10/09/19 15:40 Urine Culture - Final Urine - Urine Clean Catch Normal Urogenital Deepika 10/09/19 15:30 Legionella Antigen - Final Urine For Antigen Detection Streptococcus pneumoniae Antigen (M - Final S1 S2 RRR Lungs decreased Abd- soft, obese, NT edema++ PLAN Increase Levemir A1C 12 Continue with Lasix monitor renal function iv antibiotics for infiltrates in lung urine antigens negative for pneumonia OOB PT eval Problem List - Problems (1) Pneumonia Code(s): J18.9 - PNEUMONIA, UNSPECIFIED ORGANISM Qualifiers: Pneumonia type: due to unspecified organism Laterality: right Lung location: unspecified part of lung Qualified Code(s): J18.9 - Pneumonia, unspecified organism (2) Acute CHF Code(s): I50.9 - HEART FAILURE, UNSPECIFIED Qualifiers: Heart failure type: combined systolic and diastolic Qualified Code(s): I50.41 - Acute combined systolic (congestive) and diastolic (congestive) heart failure (3) Acute metabolic encephalopathy Code(s): G93.41 - METABOLIC ENCEPHALOPATHY (4) T2DM (type 2 diabetes mellitus) Code(s): E11.9 - TYPE 2 DIABETES MELLITUS WITHOUT COMPLICATIONS (5) CKD (chronic kidney disease) Code(s): N18.9 - CHRONIC KIDNEY DISEASE, UNSPECIFIED (6) HTN (hypertension) Code(s): I10 - ESSENTIAL (PRIMARY) HYPERTENSION Qualifiers: Hypertension type: essential hypertension Qualified Code(s): I10 - Essential (primary) hypertension (7) Renal dysfunction Code(s): N28.9 - DISORDER OF KIDNEY AND URETER, UNSPECIFIED
[2019-10-11] MEDS ORDERED: cefTRIAXone SODIUM 1 GM VIAL ONE (12:04)
[2019-10-11] MEDS ORDERED: DEXTROSE 5%-WATER - 50 ML IVPB ONE (12:04)
[2019-10-11] MEDS: FUROSEMIDE 40 MG/4 ML INJECTABLE VIAL IVPUSH SCH (12:07)
[2019-10-11] MEDS: VALSARTAN 40 MG TABLET (FP) PO SCH (12:07)
[2019-10-11] MEDS: CHOLECALCIFEROL (VIT D3) 1,000 UNIT (25 MCG) TABLET PO SCH (12:07)
[2019-10-11] MEDS: amLODIPine BESYLATE 5 MG TABLET (FP) PO SCH (12:08)
[2019-10-11] MEDS: PANTOPRAZOLE 20 MG TABLET (FP) PO SCH (12:08)
[2019-10-11] MEDS: ALLOPURINOL 100 MG TABLET (FP) PO SCH (12:08)
[2019-10-11] MEDS: ASPIRIN COATED 81 MG TABLET.EC PO SCH (12:08)
[2019-10-11] MEDS: CLOPIDOGREL BISULFATE 75 MG TABLET (FP) PO SCH (12:08)
[2019-10-11] MEDS: CARVEDILOL 6.25 MG TABLET (FP) PO SCH ×2 (12:08→21:14)
[2019-10-11] MEDS: SEVELAMER CARBONATE 800 MG TAB (FP) PO SCH ×3 (12:09→17:44)
[2019-10-11] MEDS: LACTOBACILLUS ACIDOPHILUS 1 TABLET PO SCH (12:09)
[2019-10-11] MEDS: HEPARIN NA (PORCINE) 5,000 UNITS/ML 1ML VIAL SQ SCH ×2 (12:23→21:14)
[2019-10-11 15:10] LABS: MYCOPLASMA PNEUMONIAE,IG G AB 367 U/mL (0-99); MYCOPLASMA PNEUMONIAE,IGM AB <770 U/mL (0-769)
[2019-10-11] MEDS: ATORVASTATIN CA 10 MG TABLET (FP) PO SCH (21:14)
[2019-10-12] MEDS: INSULIN SLIDING SCALE (NOVOLOG) 1 VIAL SQ SCH ×2 (06:03→16:55)
[2019-10-12] MEDS: INSULIN (LEVEMIR) 100 UNITS/ML UNITS SQ SCH ×2 (06:24→21:43)
[2019-10-12] MEDS ORDERED: DEXTROSE 5%-WATER - 50 ML IVPB ONE (09:26)
[2019-10-12] MEDS ORDERED: cefTRIAXone SODIUM 1 GM VIAL ONE (09:26)
[2019-10-12 09:57] LABS: BLOOD UREA NITROGEN 38.2 mg/dL (7-18); CALCIUM 8.9 mg/dL (8.5-10.1); CREATININE 1.8 mg/dL (0.55-1.3)
[2019-10-12] MEDS: ALLOPURINOL 100 MG TABLET (FP) PO SCH (09:58)
[2019-10-12] MEDS: CEFTRIAXONE 1 GM in DEXTROSE 5%-WATER - 50 ML IVPB SCH (09:58)
[2019-10-12] MEDS: LACTOBACILLUS ACIDOPHILUS 1 TABLET PO SCH (09:58)
[2019-10-12] MEDS: ASPIRIN COATED 81 MG TABLET.EC PO SCH (09:58)
[2019-10-12] MEDS: CHOLECALCIFEROL (VIT D3) 1,000 UNIT (25 MCG) TABLET PO SCH (09:58)
[2019-10-12] MEDS: CARVEDILOL 6.25 MG TABLET (FP) PO SCH ×2 (09:59→21:42)
[2019-10-12] MEDS: SEVELAMER CARBONATE 800 MG TAB (FP) PO SCH ×3 (09:59→17:28)
[2019-10-12] MEDS: CLOPIDOGREL BISULFATE 75 MG TABLET (FP) PO SCH (09:59)
[2019-10-12] MEDS: PANTOPRAZOLE 20 MG TABLET (FP) PO SCH (09:59)
[2019-10-12] MEDS: VALSARTAN 40 MG TABLET (FP) PO SCH (09:59)
[2019-10-12] MEDS: HEPARIN NA (PORCINE) 5,000 UNITS/ML 1ML VIAL SQ SCH ×2 (10:00→22:06)
[2019-10-12] MEDS: amLODIPine BESYLATE 5 MG TABLET (FP) PO SCH (10:00)
[2019-10-12] MEDS: FUROSEMIDE 40 MG/4 ML INJECTABLE VIAL IVPUSH SCH (10:00)
--- NOTE | 2019-10-12 12:37 | PN ---
Progress Note (short form) - Note Progress Note: feels better no distress no sob Vital Signs - 24 hr 10/11/19 10/11/19 10/11/19 14:00 18:00 21:00 Temperature 98.2 F 98.7 F Pulse Rate 83 82 Respiratory 20 20 Rate Blood Pressure 152/77 140/68 O2 Sat by Pulse 97 Oximetry (%) 10/11/19 10/12/19 21:10 06:00 Temperature 99.1 F 97.7 F Pulse Rate 78 75 Respiratory 20 20 Rate Blood Pressure 149/77 143/69 O2 Sat by Pulse Oximetry (%) Current Medications Generic Name Dose Route Start Last Admin Trade Name Freq PRN Reason Stop Dose Admin Acetaminophen 650 mg 10/09/19 13:28 Tylenol - PO Q4H PRN PAIN LEVEL 4 - 6 Albuterol/Ipratropium 1 amp 10/09/19 13:27 Duoneb - NEB Q6H PRN SHORTNESS OF BREATH Allopurinol 100 mg 10/10/19 10:00 10/12/19 09:58 Zyloprim - PO 100 mg DAILY [facility] Administration Amlodipine Besylate 5 mg 10/10/19 10:00 10/12/19 10:00 Norvasc - PO 5 mg DAILY [facility] Administration Aspirin 81 mg 10/10/19 10:00 10/12/19 09:58 Ecotrin - PO 81 mg DAILY [facility] Administration Atorvastatin Calcium 10 mg 10/09/19 22:00 10/11/19 21:14 Lipitor - PO 10 mg HS [facility] Administration Carvedilol 6.25 mg 10/09/19 22:00 10/12/19 09:59 Coreg - PO 6.25 mg BID [facility] Administration Cholecalciferol 1,000 unit 10/10/19 10:00 10/12/19 09:58 Vitamin D3 - PO 1,000 unit DAILY [facility] Administration Clopidogrel Bisulfate 75 mg 10/10/19 10:00 10/12/19 09:59 Plavix - PO 75 mg DAILY [facility] Administration Furosemide 40 mg 10/10/19 10:00 10/12/19 10:00 Lasix Injection - IVPUSH 40 mg DAILY [facility] Administration Heparin Sodium (Porcine) 5,000 unit 10/09/19 22:00 10/12/19 10:00 Heparin - SQ 5,000 unit BID [facility] Administration Ceftriaxone Sodium 1 gm/ 50 mls @ 100 mls/hr 10/11/19 11:15 10/12/19 09:58 Dextrose IVPB 100 mls/hr DAILY [facility] Administration Insulin Aspart 1 vial 10/09/19 16:30 10/12/19 06:03 Novolog Vial Sliding Scale - SQ Not Given [facility] Protocol Insulin Detemir 24 units 10/11/19 11:14 10/12/19 06:24 Levemir Vial SQ 24 units BID@0700,2200 [facility] Administration Lactobacillus Acidophilus 1 tab 10/10/19 10:00 10/12/19 09:58 Bacid - PO 1 tab DAILY [facility] Administration Melatonin 5 mg 10/09/19 13:27 10/10/19 22:02 Melatonin PO 5 mg HS PRN Administration INSOMNIA Pantoprazole Sodium 20 mg 10/10/19 10:00 10/12/19 09:59 Protonix - PO 20 mg DAILY [facility] Administration Sevelamer Carbonate 800 mg 10/10/19 08:45 10/12/19 09:59 Renvela - PO 800 mg TIDCM [facility] Administration Valsartan 40 mg 10/10/19 10:00 10/12/19 09:59 Diovan - PO 40 mg DAILY [facility] Administration Laboratory Results - last 24 hr 10/10/19 10/11/19 10/12/19 08:10 17:25 05:43 Sodium Potassium Chloride Carbon Dioxide Anion Gap BUN Creatinine Est GFR (CKD-EPI)AfAm Est GFR (CKD-EPI)NonAf POC Glucometer 339 90 Random Glucose Calcium M.pneumoniae IgG Titer 367 H M.pneumoniae IgM Titer <770 10/12/19 08:05 Sodium 142 Potassium 5.0 Chloride 106 Carbon Dioxide 32 Anion Gap 5 L BUN 38.2 H Creatinine 1.8 H Est GFR (CKD-EPI)AfAm 31.36 Est GFR (CKD-EPI)NonAf 27.06 POC Glucometer Random Glucose 86 Calcium 8.9 M.pneumoniae IgG Titer M.pneumoniae IgM Titer S1 S2 RRR Lungs decreased Abd- soft, obese, NT edema++ PLAN Increase Levemir A1C 12 Continue with Lasix monitor renal function-->better iv antibiotics for infiltrates in lung urine antigens negative for pneumonia OOB PT eval dc planning - anticipate in 2 days Problem List - Problems (1) Pneumonia Code(s): J18.9 - PNEUMONIA, UNSPECIFIED ORGANISM Qualifiers: Pneumonia type: due to unspecified organism Laterality: right Lung location: unspecified part of lung Qualified Code(s): J18.9 - Pneumonia, unspecified organism (2) Acute CHF Code(s): I50.9 - HEART FAILURE, UNSPECIFIED Qualifiers: Heart failure type: combined systolic and diastolic Qualified Code(s): I50.41 - Acute combined systolic (congestive) and diastolic (congestive) heart failure (3) Acute metabolic encephalopathy Code(s): G93.41 - METABOLIC ENCEPHALOPATHY (4) T2DM (type 2 diabetes mellitus) Code(s): E11.9 - TYPE 2 DIABETES MELLITUS WITHOUT COMPLICATIONS (5) CKD (chronic kidney disease) Code(s): N18.9 - CHRONIC KIDNEY DISEASE, UNSPECIFIED (6) HTN (hypertension) Code(s): I10 - ESSENTIAL (PRIMARY) HYPERTENSION Qualifiers: Hypertension type: essential hypertension Qualified Code(s): I10 - Essential (primary) hypertension (7) Renal dysfunction Code(s): N28.9 - DISORDER OF KIDNEY AND URETER, UNSPECIFIED
[2019-10-12 16:11] VITALS: BMI 42.5
[2019-10-12] MEDS: ATORVASTATIN CA 10 MG TABLET (FP) PO SCH (21:42)
[2019-10-13] MEDS: INSULIN SLIDING SCALE (NOVOLOG) 1 VIAL SQ SCH ×2 (06:07→16:58)
[2019-10-13] MEDS: INSULIN (LEVEMIR) 100 UNITS/ML UNITS SQ SCH ×2 (06:24→21:25)
[2019-10-13] MEDS ORDERED: INSULIN (NOVOLOG) ASPART 100 UNITS/ML 10ML VIAL ONE (06:29)
[2019-10-13 08:55] LABS: BASO % 0.7 % (0-2.0); EOS % 6.5 % (0-4.5); HEMATOCRIT 26.6 % (32.4-45.2); HEMOGLOBIN 8.4 GM/dL (10.7-15.3); LYMPH % 22.8 % (8-40); MCH 21.3 pg (25.7-33.7); MCHC 31.7 g/dl (32.0-36.0); MEAN CELL VOLUME 67.1 fl (80-96); MEAN PLT VOLUME 9.3 fl (7.5-11.1); MONO % 10.5 % (3.8-10.2); NEUT % 59.5 % (42.8-82.8); PLATELET COUNT 276 K/MM3 (134-434); RBC 3.97 M/mm3 (3.60-5.2); WHITE BLOOD COUNT 6.1 K/mm3 (4.0-10.0)
[2019-10-13 09:14] LABS: ALBUMIN 2.6 g/dl (3.4-5.0); BILIRUBIN,TOTAL 0.2 mg/dL (0.2-1); CALCIUM 9.2 mg/dL (8.5-10.1); CREATININE 1.8 mg/dL (0.55-1.3); POTASSIUM 5.2 mmol/L (3.5-5.1); TOT PROT 6.5 g/dl (6.4-8.2)
[2019-10-13] MEDS ORDERED: DEXTROSE 5%-WATER - 50 ML IVPB ONE (09:50)
[2019-10-13] MEDS ORDERED: cefTRIAXone SODIUM 1 GM VIAL ONE (09:50)
[2019-10-13] MEDS: CEFTRIAXONE 1 GM in DEXTROSE 5%-WATER - 50 ML IVPB SCH (09:54)
[2019-10-13] MEDS: FUROSEMIDE 40 MG/4 ML INJECTABLE VIAL IVPUSH SCH (09:54)
[2019-10-13] MEDS: HEPARIN NA (PORCINE) 5,000 UNITS/ML 1ML VIAL SQ SCH ×2 (09:55→21:25)
[2019-10-13] MEDS: CLOPIDOGREL BISULFATE 75 MG TABLET (FP) PO SCH (09:56)
[2019-10-13] MEDS: CHOLECALCIFEROL (VIT D3) 1,000 UNIT (25 MCG) TABLET PO SCH (09:56)
[2019-10-13] MEDS: ASPIRIN COATED 81 MG TABLET.EC PO SCH (09:56)
[2019-10-13] MEDS: VALSARTAN 40 MG TABLET (FP) PO SCH (09:56)
[2019-10-13] MEDS: CARVEDILOL 6.25 MG TABLET (FP) PO SCH ×2 (09:56→21:25)
[2019-10-13] MEDS: amLODIPine BESYLATE 5 MG TABLET (FP) PO SCH (09:56)
[2019-10-13] MEDS: LACTOBACILLUS ACIDOPHILUS 1 TABLET PO SCH (09:56)
[2019-10-13] MEDS: ALLOPURINOL 100 MG TABLET (FP) PO SCH (09:56)
[2019-10-13] MEDS: PANTOPRAZOLE 20 MG TABLET (FP) PO SCH (09:56)
[2019-10-13] MEDS: SEVELAMER CARBONATE 800 MG TAB (FP) PO SCH ×3 (09:56→17:21)
[2019-10-13 10:41] LABS: PLATELET ESTIMATE NORMAL
--- NOTE | 2019-10-13 10:52 | PN ---
Progress Note (short form) - Note Progress Note: Pt seen/ examined chart is reviewed awake/ comfortable feels better afebrile Vital Signs Temp 98.1 F 10/13/19 10:31 Pulse 75 10/13/19 10:31 Resp 20 10/13/19 10:31 BP 143/79 10/13/19 10:31 Pulse Ox 100 10/13/19 09:00 Intake & Output 10/12/19 10/12/19 10/13/19 11:59 23:59 11:59 Intake Total 500 Balance 500 Weight 240 lb Intake: IVPB 100 Oral 400 Other: Voiding Method Incontinent Incontinent Incontinent # Unmeasured Voids Void 1 1 2 Bowel Movement No Yes # Bowel Movements 1 Height 5 ft 3 in Body Mass Index (BMI) 42.5 Active Medications Acetaminophen (Tylenol -) 650 mg PO Q4H PRN PRN Reason: PAIN LEVEL 4 - 6 Albuterol/Ipratropium (Duoneb -) 1 amp NEB Q6H PRN PRN Reason: SHORTNESS OF BREATH Allopurinol (Zyloprim -) 100 mg PO DAILY [facility] Last Admin: 10/13/19 09:56 Dose: 100 mg Amlodipine Besylate (Norvasc -) 5 mg PO DAILY [facility] Last Admin: 10/13/19 09:56 Dose: 5 mg Aspirin (Ecotrin -) 81 mg PO DAILY [facility] Last Admin: 10/13/19 09:56 Dose: 81 mg Atorvastatin Calcium (Lipitor -) 10 mg PO HS [facility] Last Admin: 10/12/19 21:42 Dose: 10 mg Carvedilol (Coreg -) 6.25 mg PO BID [facility] Last Admin: 10/13/19 09:56 Dose: 6.25 mg Cholecalciferol (Vitamin D3 -) 1,000 unit PO DAILY [facility] Last Admin: 10/13/19 09:56 Dose: 1,000 unit Clopidogrel Bisulfate (Plavix -) 75 mg PO DAILY [facility] Last Admin: 10/13/19 09:56 Dose: 75 mg Furosemide (Lasix Injection -) 40 mg IVPUSH DAILY [facility] Last Admin: 10/13/19 09:54 Dose: 40 mg Heparin Sodium (Porcine) (Heparin -) 5,000 unit SQ BID [facility] Last Admin: 10/13/19 09:55 Dose: 5,000 unit Ceftriaxone Sodium 1 gm/ (Dextrose) 50 mls @ 100 mls/hr IVPB DAILY [facility] Last Admin: 10/13/19 09:54 Dose: 100 mls/hr Insulin Aspart (Novolog Vial Sliding Scale -) 1 vial SQ BIDAC [facility]; Protocol Last Admin: 10/13/19 06:07 Dose: 5 unit Insulin Detemir (Levemir Vial) 24 units SQ BID@0700,2200 [facility] Last Admin: 10/13/19 06:24 Dose: 24 units Lactobacillus Acidophilus (Bacid -) 1 tab PO DAILY [facility] Last Admin: 10/13/19 09:56 Dose: 1 tab Melatonin (Melatonin) 5 mg PO HS PRN PRN Reason: INSOMNIA Last Admin: 10/10/19 22:02 Dose: 5 mg Pantoprazole Sodium (Protonix -) 20 mg PO DAILY [facility] Last Admin: 10/13/19 09:56 Dose: 20 mg Sevelamer Carbonate (Renvela -) 800 mg PO TIDCM [facility] Last Admin: 10/13/19 09:56 Dose: 800 mg Valsartan (Diovan -) 40 mg PO DAILY [facility] Last Admin: 10/13/19 09:56 Dose: 40 mg CBC, BMP 10/13/19 08:00 10/13/19 08:00 Microbiology 10/09/19 09:16 Blood Culture - Preliminary Blood - Peripheral Venous NO GROWTH OBTAINED AFTER 96 HOURS, INCUBATION TO CONTINUE FOR 1 DAYS. 10/09/19 09:16 Blood Culture - Preliminary Blood - Peripheral Venous NO GROWTH OBTAINED AFTER 96 HOURS, INCUBATION TO CONTINUE FOR 1 DAYS. Physical S1 S2 RRR Lungs decreased Abd- soft, obese, NT edema + PLAN Increased Levemir- monitor A1C 12 Continue with Lasix monitor renal function iv antibiotics for infiltrates in lung urine antigens negative for pneumonia OOB PT eval continue abx today f/u cxr d/c planning Anticipate tomorrow if stable monitor bgm oob - chair PT Will follow Problem List - Problems (1) Insomnia Code(s): G47.00 - INSOMNIA, UNSPECIFIED (2) Hallucination, visual Code(s): R44.1 - VISUAL HALLUCINATIONS (3) Pneumonia Code(s): J18.9 - PNEUMONIA, UNSPECIFIED ORGANISM Qualifiers: Pneumonia type: due to unspecified organism Laterality: right Lung location: unspecified part of lung Qualified Code(s): J18.9 - Pneumonia, unspecified organism (4) Shortness of breath Code(s): R06.02 - SHORTNESS OF BREATH (5) Acute CHF Code(s): I50.9 - HEART FAILURE, UNSPECIFIED Qualifiers: Heart failure type: combined systolic and diastolic Qualified Code(s): I50.41 - Acute combined systolic (congestive) and diastolic (congestive) heart failure (6) Biventricular ICD (implantable cardioverter-defibrillator) in place Code(s): Z95.810 - PRESENCE OF AUTOMATIC (IMPLANTABLE) CARDIAC DEFIBRILLATOR (7) CAD (coronary artery disease) Code(s): I25.10 - ATHSCL HEART DISEASE OF [place] CORONARY ARTERY W/O ANG PCTRS Qualifiers: Coronary Disease-Associated Artery/Lesion type: unspecified vessel or lesion type Associated angina: without angina (8) CKD (chronic kidney disease) Code(s): N18.9 - CHRONIC KIDNEY DISEASE, UNSPECIFIED (9) Diabetes Code(s): E11.9 - TYPE 2 DIABETES MELLITUS WITHOUT COMPLICATIONS Qualifiers: Diabetes mellitus type: type 2 Chronic kidney disease stage: stage 3 ( moderate) (10) Fever Code(s): R50.9 - FEVER, UNSPECIFIED Qualifiers: Encounter type: initial encounter
--- NOTE | 2019-10-13 12:13 | PN ---
Progress Note, Physician History of Present Illness: OOB in chair eating lunch. Dyspnea, cough and LE edema resolved with diuresis. No longer febrile. - Current Medication List Current Medications: Active Medications Acetaminophen (Tylenol -) 650 mg PO Q4H PRN PRN Reason: PAIN LEVEL 4 - 6 Albuterol/Ipratropium (Duoneb -) 1 amp NEB Q6H PRN PRN Reason: SHORTNESS OF BREATH Allopurinol (Zyloprim -) 100 mg PO DAILY [facility] Last Admin: 10/13/19 09:56 Dose: 100 mg Amlodipine Besylate (Norvasc -) 5 mg PO DAILY [facility] Last Admin: 10/13/19 09:56 Dose: 5 mg Aspirin (Ecotrin -) 81 mg PO DAILY [facility] Last Admin: 10/13/19 09:56 Dose: 81 mg Atorvastatin Calcium (Lipitor -) 10 mg PO HS [facility] Last Admin: 10/12/19 21:42 Dose: 10 mg Carvedilol (Coreg -) 6.25 mg PO BID [facility] Last Admin: 10/13/19 09:56 Dose: 6.25 mg Cholecalciferol (Vitamin D3 -) 1,000 unit PO DAILY [facility] Last Admin: 10/13/19 09:56 Dose: 1,000 unit Clopidogrel Bisulfate (Plavix -) 75 mg PO DAILY [facility] Last Admin: 10/13/19 09:56 Dose: 75 mg Furosemide (Lasix Injection -) 40 mg IVPUSH DAILY [facility] Last Admin: 10/13/19 09:54 Dose: 40 mg Heparin Sodium (Porcine) (Heparin -) 5,000 unit SQ BID [facility] Last Admin: 10/13/19 09:55 Dose: 5,000 unit Ceftriaxone Sodium 1 gm/ (Dextrose) 50 mls @ 100 mls/hr IVPB DAILY [facility] Last Admin: 10/13/19 09:54 Dose: 100 mls/hr Insulin Aspart (Novolog Vial Sliding Scale -) [facility] Protocol Last Admin: 10/13/19 06:07 Dose: 5 unit Insulin Detemir (Levemir Vial) 24 units SQ BID@0700,2200 [facility] Last Admin: 10/13/19 06:24 Dose: 24 units Lactobacillus Acidophilus (Bacid -) 1 tab PO DAILY [facility] Last Admin: 10/13/19 09:56 Dose: 1 tab Melatonin (Melatonin) 5 mg PO HS PRN PRN Reason: INSOMNIA Last Admin: 10/10/19 22:02 Dose: 5 mg Pantoprazole Sodium (Protonix -) 20 mg PO DAILY [facility] Last Admin: 10/13/19 09:56 Dose: 20 mg Sevelamer Carbonate (Renvela -) 800 mg PO TIDCM [facility] Last Admin: 10/13/19 09:56 Dose: 800 mg Valsartan (Diovan -) 40 mg PO DAILY [facility] Last Admin: 10/13/19 09:56 Dose: 40 mg - Objective Vital Signs: Vital Signs Temperature 98.1 F 10/13/19 10:31 Pulse Rate 75 10/13/19 10:31 Respiratory Rate 20 10/13/19 10:31 Blood Pressure 143/79 10/13/19 10:31 O2 Sat by Pulse Oximetry (%) 100 10/13/19 09:00 Constitutional: Yes: No Distress, Calm Neck: Yes: Supple Cardiovascular: Yes: Regular Rate and Rhythm Respiratory: Yes: Regular, Diminished Gastrointestinal: Yes: Normal Bowel Sounds, Soft Edema: Yes Edema: LLE: Trace, RLE: Trace Labs: CBC, BMP 10/13/19 08:00 10/13/19 08:00 INR, PTT INR 1.07 (0.83-1.09) 10/09/19 09:16 Problem List - Problems (1) T2DM (type 2 diabetes mellitus) Code(s): E11.9 - TYPE 2 DIABETES MELLITUS WITHOUT COMPLICATIONS (2) Biventricular ICD (implantable cardioverter-defibrillator) in place Code(s): Z95.810 - PRESENCE OF AUTOMATIC (IMPLANTABLE) CARDIAC DEFIBRILLATOR (3) CAD (coronary artery disease) Code(s): I25.10 - ATHSCL HEART DISEASE OF [place] CORONARY ARTERY W/O ANG PCTRS Qualifiers: Coronary Disease-Associated Artery/Lesion type: unspecified vessel or lesion type Associated angina: without angina (4) CHF (congestive heart failure) Code(s): I50.9 - HEART FAILURE, UNSPECIFIED Qualifiers: Heart failure type: combined systolic and diastolic Heart failure chronicity: acute on chronic Qualified Code(s): I50.43 - Acute on chronic combined systolic (congestive) and diastolic (congestive) heart failure (5) CKD (chronic kidney disease) Code(s): N18.9 - CHRONIC KIDNEY DISEASE, UNSPECIFIED (6) HTN (hypertension) Code(s): I10 - ESSENTIAL (PRIMARY) HYPERTENSION Qualifiers: Hypertension type: essential hypertension Qualified Code(s): I10 - Essential (primary) hypertension (7) History of percutaneous coronary intervention Code(s): Z98.89 - OTHER SPECIFIED POSTPROCEDURAL STATES * DO NOT USE * (8) Hyperlipidemia Code(s): E78.5 - HYPERLIPIDEMIA, UNSPECIFIED Qualifiers: Hyperlipidemia type: pure hypercholesterolemia Qualified Code(s): E78.00 - Pure hypercholesterolemia, unspecified; E78.0 - Pure hypercholesterolemia (9) Pedal edema Code(s): R60.0 - LOCALIZED EDEMA Assessment/Plan 1. LV systolic/diastolic dysfunction, acute on chronic failure NYHA class 1-2 2. CAD s/p PCI/stent, angina pectoris 3. HTN 4. Hypercholesterolemia 5. 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 History of syncope 8. Exogenous obesity PLAN: 1. Continue Carvedilol 6.25 bid, Amlodipine 5 qd and Valsartan 40 qd 2. Resume oral diuresis and monitor renal function and electrolytes. Monitor daily weight and I/Os 3. Continue ASA 81 qd and Plavix 75 qd with GI protection 4. Continue Atorvastatin 10 qd 5. On empiric abx course 6. D/c planning with f/u in office
[2019-10-13] MEDS: ATORVASTATIN CA 10 MG TABLET (FP) PO SCH (21:25)
[2019-10-14] MEDS: INSULIN SLIDING SCALE (NOVOLOG) 1 VIAL SQ SCH ×2 (06:40→16:36)
[2019-10-14] MEDS: INSULIN (LEVEMIR) 100 UNITS/ML UNITS SQ SCH ×2 (06:40→21:08)
[2019-10-14] MEDS ORDERED: cefTRIAXone SODIUM 1 GM VIAL ONE (09:22)
[2019-10-14] MEDS ORDERED: DEXTROSE 5%-WATER - 50 ML IVPB ONE (09:22)
[2019-10-14] MEDS: CEFTRIAXONE 1 GM in DEXTROSE 5%-WATER - 50 ML IVPB SCH (09:24)
[2019-10-14] MEDS: HEPARIN NA (PORCINE) 5,000 UNITS/ML 1ML VIAL SQ SCH ×2 (09:24→21:07)
[2019-10-14] MEDS: LACTOBACILLUS ACIDOPHILUS 1 TABLET PO SCH (09:26)
[2019-10-14] MEDS: CARVEDILOL 6.25 MG TABLET (FP) PO SCH ×2 (09:26→21:07)
[2019-10-14] MEDS: ASPIRIN COATED 81 MG TABLET.EC PO SCH (09:27)
[2019-10-14] MEDS: PANTOPRAZOLE 20 MG TABLET (FP) PO SCH (09:27)
[2019-10-14] MEDS: CLOPIDOGREL BISULFATE 75 MG TABLET (FP) PO SCH (09:27)
[2019-10-14] MEDS: VALSARTAN 40 MG TABLET (FP) PO SCH (09:27)
[2019-10-14] MEDS: SEVELAMER CARBONATE 800 MG TAB (FP) PO SCH ×3 (09:27→18:26)
[2019-10-14] MEDS: CHOLECALCIFEROL (VIT D3) 1,000 UNIT (25 MCG) TABLET PO SCH (09:27)
[2019-10-14] MEDS: amLODIPine BESYLATE 5 MG TABLET (FP) PO SCH (09:27)
[2019-10-14] MEDS: ALLOPURINOL 100 MG TABLET (FP) PO SCH (09:27)
[2019-10-14] MEDS ORDERED: FUROSEMIDE 40 MG TABLET (FP) PO SCH (10:00)
[2019-10-14] MEDS ORDERED: FUROSEMIDE 40 MG/4 ML INJECTABLE VIAL IVPUSH SCH (12:15)
--- NOTE | 2019-10-14 12:15 | PN ---
Progress Note (short form) - Note Progress Note: pt seen/ examined. sitting in chair feels ok Vital Signs Temp 97.7 F 10/14/19 04:00 Pulse 72 10/14/19 04:00 Resp 21 H 10/14/19 04:00 BP 137/77 10/14/19 04:00 Pulse Ox 100 10/13/19 20:56 Intake & Output 10/13/19 10/14/19 10/14/19 23:59 11:59 23:59 Intake Total 350 Balance 350 Intake: Oral 350 Other: Voiding Method Incontinent # Unmeasured Voids Void 1 1 Bowel Movement No No Active Medications Acetaminophen (Tylenol -) 650 mg PO Q4H PRN PRN Reason: PAIN LEVEL 4 - 6 Albuterol/Ipratropium (Duoneb -) 1 amp NEB Q6H PRN PRN Reason: SHORTNESS OF BREATH Allopurinol (Zyloprim -) 100 mg PO DAILY [facility] Last Admin: 10/14/19 09:27 Dose: 100 mg Amlodipine Besylate (Norvasc -) 5 mg PO DAILY [facility] Last Admin: 10/14/19 09:27 Dose: 5 mg Aspirin (Ecotrin -) 81 mg PO DAILY [facility] Last Admin: 10/14/19 09:27 Dose: 81 mg Atorvastatin Calcium (Lipitor -) 10 mg PO HS [facility] Last Admin: 10/13/19 21:25 Dose: 10 mg Carvedilol (Coreg -) 6.25 mg PO BID [facility] Last Admin: 10/14/19 09:26 Dose: 6.25 mg Cholecalciferol (Vitamin D3 -) 1,000 unit PO DAILY [facility] Last Admin: 10/14/19 09:27 Dose: 1,000 unit Clopidogrel Bisulfate (Plavix -) 75 mg PO DAILY [facility] Last Admin: 10/14/19 09:27 Dose: 75 mg Furosemide (Lasix Injection -) 40 mg IVPUSH DAILY [facility] Heparin Sodium (Porcine) (Heparin -) 5,000 unit SQ BID [facility] Last Admin: 10/14/19 09:24 Dose: 5,000 unit Ceftriaxone Sodium 1 gm/ (Dextrose) 50 mls @ 100 mls/hr IVPB DAILY [facility] Last Admin: 10/14/19 09:24 Dose: 100 mls/hr Insulin Aspart (Novolog Vial Sliding Scale -) [facility]; Protocol Last Admin: 10/14/19 06:40 Dose: Not Given Insulin Detemir (Levemir Vial) 24 units SQ BID@0700,2200 [facility] Last Admin: 10/14/19 06:40 Dose: 24 units Lactobacillus Acidophilus (Bacid -) 1 tab PO DAILY [facility] Last Admin: 10/14/19 09:26 Dose: 1 tab Melatonin (Melatonin) 5 mg PO HS PRN PRN Reason: INSOMNIA Last Admin: 10/10/19 22:02 Dose: 5 mg Pantoprazole Sodium (Protonix -) 20 mg PO DAILY [facility] Last Admin: 10/14/19 09:27 Dose: 20 mg Sevelamer Carbonate (Renvela -) 800 mg PO TIDCM [facility] Last Admin: 10/14/19 09:27 Dose: 800 mg Valsartan (Diovan -) 40 mg PO DAILY [facility] Last Admin: 10/14/19 09:27 Dose: 40 mg CBC, BMP 10/13/19 08:00 10/13/19 08:00 cx-- congestive changes, Microbiology 10/09/19 09:16 Blood Culture - Final Blood - Peripheral Venous NO GROWTH AFTER 5 DAYS INCUBATION 10/09/19 09:16 Blood Culture - Final Blood - Peripheral Venous NO GROWTH AFTER 5 DAYS INCUBATION Physical S1 S2 RRR Lungs decreased Abd- soft, obese, NT edema + PLAN Increased Levemir- monitor A1C 12 Continue with Lasix monitor renal function iv antibiotics for infiltrates in lung urine antigens negative for pneumonia OOB PT eval continue abx today f/u cxr noted will give i/v lasix d/c planning Anticipate tomorrow if stable monitor bgm oob - chair PT Will follow Problem List - Problems (1) Insomnia Code(s): G47.00 - INSOMNIA, UNSPECIFIED (2) Hallucination, visual Code(s): R44.1 - VISUAL HALLUCINATIONS (3) Pneumonia Code(s): J18.9 - PNEUMONIA, UNSPECIFIED ORGANISM Qualifiers: Pneumonia type: due to unspecified organism Laterality: right Lung location: unspecified part of lung Qualified Code(s): J18.9 - Pneumonia, unspecified organism (4) Shortness of breath Code(s): R06.02 - SHORTNESS OF BREATH (5) Acute CHF Code(s): I50.9 - HEART FAILURE, UNSPECIFIED Qualifiers: Heart failure type: combined systolic and diastolic Qualified Code(s): I50.41 - Acute combined systolic (congestive) and diastolic (congestive) heart failure (6) Biventricular ICD (implantable cardioverter-defibrillator) in place Code(s): Z95.810 - PRESENCE OF AUTOMATIC (IMPLANTABLE) CARDIAC DEFIBRILLATOR (7) CAD (coronary artery disease) Code(s): I25.10 - ATHSCL HEART DISEASE OF [place] CORONARY ARTERY W/O ANG PCTRS Qualifiers: Coronary Disease-Associated Artery/Lesion type: unspecified vessel or lesion type Associated angina: without angina (8) CKD (chronic kidney disease) Code(s): N18.9 - CHRONIC KIDNEY DISEASE, UNSPECIFIED (9) Diabetes Code(s): E11.9 - TYPE 2 DIABETES MELLITUS WITHOUT COMPLICATIONS Qualifiers: Diabetes mellitus type: type 2 Chronic kidney disease stage: stage 3 ( moderate) (10) Fever Code(s): R50.9 - FEVER, UNSPECIFIED Qualifiers: Encounter type: initial encounter
--- NOTE | 2019-10-14 14:57 | PN ---
Progress Note, Physician Chief Complaint: Not in distress History of Present Illness: Patient was seen and examined. Awake and alert. Chart was reviewed Denies chest pain, SOB or palpitations - Current Medication List Current Medications: Active Medications Acetaminophen (Tylenol -) 650 mg PO Q4H PRN PRN Reason: PAIN LEVEL 4 - 6 Allopurinol (Zyloprim -) 100 mg PO DAILY [facility] Last Admin: 10/14/19 09:27 Dose: 100 mg Amlodipine Besylate (Norvasc -) 5 mg PO DAILY [facility] Last Admin: 10/14/19 09:27 Dose: 5 mg Aspirin (Ecotrin -) 81 mg PO DAILY [facility] Last Admin: 10/14/19 09:27 Dose: 81 mg Atorvastatin Calcium (Lipitor -) 10 mg PO HS [facility] Last Admin: 10/13/19 21:25 Dose: 10 mg Carvedilol (Coreg -) 6.25 mg PO BID [facility] Last Admin: 10/14/19 09:26 Dose: 6.25 mg Cholecalciferol (Vitamin D3 -) 1,000 unit PO DAILY [facility] Last Admin: 10/14/19 09:27 Dose: 1,000 unit Clopidogrel Bisulfate (Plavix -) 75 mg PO DAILY [facility] Last Admin: 10/14/19 09:27 Dose: 75 mg Furosemide (Lasix Injection -) 40 mg IVPUSH DAILY [facility] Last Admin: 10/14/19 13:58 Dose: 40 mg Heparin Sodium (Porcine) (Heparin -) 5,000 unit SQ BID [facility] Last Admin: 10/14/19 09:24 Dose: 5,000 unit Ceftriaxone Sodium 1 gm/ (Dextrose) 50 mls @ 100 mls/hr IVPB DAILY [facility] Last Admin: 10/14/19 09:24 Dose: 100 mls/hr Insulin Aspart (Novolog Vial Sliding Scale -) 1 vial SQ BIDAC [facility]; Protocol Last Admin: 10/14/19 06:40 Dose: Not Given Insulin Detemir (Levemir Vial) 24 units SQ BID@0700,2200 [facility] Last Admin: 10/14/19 06:40 Dose: 24 units Lactobacillus Acidophilus (Bacid -) 1 tab PO DAILY [facility] Last Admin: 10/14/19 09:26 Dose: 1 tab Melatonin (Melatonin) 5 mg PO HS PRN PRN Reason: INSOMNIA Last Admin: 10/10/19 22:02 Dose: 5 mg Pantoprazole Sodium (Protonix -) 20 mg PO DAILY [facility] Last Admin: 10/14/19 09:27 Dose: 20 mg Sevelamer Carbonate (Renvela -) 800 mg PO TIDCM [facility] Last Admin: 10/14/19 13:20 Dose: 800 mg Valsartan (Diovan -) 40 mg PO DAILY [facility] Last Admin: 10/14/19 09:27 Dose: 40 mg - Objective Vital Signs: Vital Signs Temperature 97.7 F 10/14/19 04:00 Pulse Rate 72 10/14/19 04:00 Respiratory Rate 21 H 10/14/19 04:00 Blood Pressure 137/77 10/14/19 04:00 O2 Sat by Pulse Oximetry (%) 100 10/14/19 10:00 Eyes: Yes: PERRL HENT: Yes: Atraumatic Neck: Yes: Supple Cardiovascular: Yes: Regular Rate and Rhythm, S1, S2 Respiratory: Yes: CTA Bilaterally Gastrointestinal: Yes: Normal Bowel Sounds, Soft, Abdomen, Obese. No: Tenderness Edema: Yes Labs: CBC, BMP 10/13/19 08:00 10/13/19 08:00 Problem List - Problems (1) T2DM (type 2 diabetes mellitus) Code(s): E11.9 - TYPE 2 DIABETES MELLITUS WITHOUT COMPLICATIONS (2) Pneumonia Code(s): J18.9 - PNEUMONIA, UNSPECIFIED ORGANISM Qualifiers: Pneumonia type: due to unspecified organism Laterality: right Lung location: unspecified part of lung Qualified Code(s): J18.9 - Pneumonia, unspecified organism (3) Acute respiratory failure with hypercapnia Code(s): J96.02 - ACUTE RESPIRATORY FAILURE WITH HYPERCAPNIA (4) Biventricular ICD (implantable cardioverter-defibrillator) in place Code(s): Z95.810 - PRESENCE OF AUTOMATIC (IMPLANTABLE) CARDIAC DEFIBRILLATOR (5) CAD (coronary artery disease) Code(s): I25.10 - ATHSCL HEART DISEASE OF [place] CORONARY ARTERY W/O ANG PCTRS Qualifiers: Coronary Disease-Associated Artery/Lesion type: unspecified vessel or lesion type Associated angina: without angina (6) CHF (congestive heart failure) Code(s): I50.9 - HEART FAILURE, UNSPECIFIED Qualifiers: Heart failure type: combined systolic and diastolic Heart failure chronicity: acute on chronic Qualified Code(s): I50.43 - Acute on chronic combined systolic (congestive) and diastolic (congestive) heart failure (7) CKD (chronic kidney disease) Code(s): N18.9 - CHRONIC KIDNEY DISEASE, UNSPECIFIED (8) HTN (hypertension) Code(s): I10 - ESSENTIAL (PRIMARY) HYPERTENSION Qualifiers: Hypertension type: essential hypertension Qualified Code(s): I10 - Essential (primary) hypertension (9) History of percutaneous coronary intervention Code(s): Z98.89 - OTHER SPECIFIED POSTPROCEDURAL STATES * DO NOT USE * (10) Hyperlipidemia Code(s): E78.5 - HYPERLIPIDEMIA, UNSPECIFIED Qualifiers: Hyperlipidemia type: pure hypercholesterolemia Qualified Code(s): E78.00 - Pure hypercholesterolemia, unspecified; E78.0 - Pure hypercholesterolemia (11) SOB (shortness of breath) on exertion Code(s): R06.02 - SHORTNESS OF BREATH Assessment/Plan 1. LV systolic/diastolic dysfunction, acute on chronic failure NYHA class 1-2 2. CAD s/p PCI/stent, angina pectoris 3. HTN 4. Hypercholesterolemia 5. 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 History of syncope 8. Exogenous obesity PLAN: 1. Continue Carvedilol, Amlodipine and Valsartan as tolerated 2. Continue Furosemide PO and monitor renal function and electrolytes. Monitor daily weight and I/Os 3. Continue ASA and Plavix 4. Continue Atorvastatin Further plans are to follow. Eventually follow up in office ([facility]). Discharge planning Nima Mcgill MD
[2019-10-14] MEDS ORDERED: INSULIN (NOVOLOG) ASPART 100 UNITS/ML 10ML VIAL ONE (18:22)
[2019-10-14] MEDS: ATORVASTATIN CA 10 MG TABLET (FP) PO SCH (21:07)
[2019-10-15] MEDS: INSULIN SLIDING SCALE (NOVOLOG) 1 VIAL SQ SCH (06:02)
[2019-10-15] MEDS: INSULIN (LEVEMIR) 100 UNITS/ML UNITS SQ SCH (06:28)
[2019-10-15] MEDS ORDERED: INSULIN (LEVEMIR) 100 UNITS/ML UNITS SQ ONE (08:09)
[2019-10-15] MEDS: SEVELAMER CARBONATE 800 MG TAB (FP) PO SCH ×2 (09:15→12:45)
[2019-10-15] MEDS ORDERED: FUROSEMIDE 40 MG TABLET (FP) PO SCH (10:00)
[2019-10-15] MEDS ORDERED: cefTRIAXone SODIUM 1 GM VIAL ONE (10:30)
[2019-10-15] MEDS ORDERED: DEXTROSE 5%-WATER - 50 ML IVPB ONE (10:30)
[2019-10-15] MEDS: CHOLECALCIFEROL (VIT D3) 1,000 UNIT (25 MCG) TABLET PO SCH (10:34)
[2019-10-15] MEDS: ASPIRIN COATED 81 MG TABLET.EC PO SCH (10:34)
[2019-10-15] MEDS: CLOPIDOGREL BISULFATE 75 MG TABLET (FP) PO SCH (10:34)
[2019-10-15] MEDS: HEPARIN NA (PORCINE) 5,000 UNITS/ML 1ML VIAL SQ SCH (10:34)
[2019-10-15] MEDS: CEFTRIAXONE 1 GM in DEXTROSE 5%-WATER - 50 ML IVPB SCH (10:34)
[2019-10-15] MEDS: LACTOBACILLUS ACIDOPHILUS 1 TABLET PO SCH (10:34)
[2019-10-15] MEDS: ALLOPURINOL 100 MG TABLET (FP) PO SCH (10:34)
[2019-10-15] MEDS: VALSARTAN 40 MG TABLET (FP) PO SCH (10:34)
[2019-10-15] MEDS: CARVEDILOL 6.25 MG TABLET (FP) PO SCH (10:34)
[2019-10-15] MEDS: amLODIPine BESYLATE 5 MG TABLET (FP) PO SCH (10:34)
[2019-10-15] MEDS: PANTOPRAZOLE 20 MG TABLET (FP) PO SCH (10:34)
[2019-10-15 10:47] LABS: BLOOD UREA NITROGEN 44.9 mg/dL (7-18); CALCIUM 9.2 mg/dL (8.5-10.1); POTASSIUM 5.2 mmol/L (3.5-5.1)
--- NOTE | 2019-10-15 12:28 | DS ---
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 Constitutional: Yes: No Distress, Calm Eyes: Yes: Conjunctiva Clear Neck: Yes: Supple Cardiovascular: Yes: Regular Rate and Rhythm Respiratory: Yes: Diminished Gastrointestinal: Yes: Soft, Abdomen, Obese Edema: LLE: Trace, RLE: Trace Neurological: Yes: Alert Labs: CBC, BMP 10/13/19 08:00 10/15/19 09:46 Discharge Summary Problems reviewed: Yes Reason For Visit: ACUTE CHRONIC CHF,SOB,PNEUMONIA Current Active Problems Hallucination, visual (Acute) Insomnia (Acute) Pneumonia (Acute) Shortness of breath (Acute) T2DM (type 2 diabetes mellitus) (Acute) Hospital Course: The patient is a 74 year old female with a significant past medical history of COPD (home nebs, no home O2), CAD s/p pacemaker, HTN, HLD, IDDM, anemia, chronic venous insufficiency, renal insufficiency, GERD, and OA who presents to our ED with 3 days of SOB, fever (at home), and non productive cough. Aid at bedside notes the patient has been endorsing lower extremity edema and has not been sleeping well. The patient denies chest pain, headache and dizziness. Denies chills, nausea, vomiting, diarrhea, constipation, dysuria, frequency, urgency and hematuria. Pt found in chf exac as well as Pneumonia treated with diuretics and abx did well cardiology followed Now stable for d/c wants to go home only-- dont want str meds reconcilled close f/u in office repeat cxr in 4-6 weeks will follow in office d/w rn and aid also who is at bedside Condition: Stable - Instructions Referrals: Iesha Combs MD [Primary Care Provider] - Disposition: HOME - Home Medications Comprehensive Discharge Medication List: Ambulatory Orders Allopurinol [Zyloprim -] 100 mg PO DAILY 02/24/16 Cholecalciferol (Vitamin D3) [Vitamin D3] 1,000 unit PO DAILY 07/17/18 Furosemide [Lasix -] 40 mg PO DAILY 05/24/18 Pravastatin Sodium 20 mg PO HS 05/24/18 Aspirin Coated [Ecotrin -] 81 mg PO DAILY tablet.ec 01/30/19 Amlodipine Besylate 5 mg PO DAILY 03/14/19 Clopidogrel Bisulfate [Clopidogrel] 75 mg PO DAILY 03/14/19 Valsartan [Diovan] 40 mg PO DAILY tablet 03/20/19 Gabapentin [Neurontin -] 300 mg PO BID #60 capsule 03/28/19 Lactobacillus Acidophilus [Bacid -] 1 tab PO DAILY #30 tab 03/28/19 Carvedilol [Coreg -] 6.25 mg PO BID #60 tablet 05/31/19 Insulin Sliding Scale [Novolog Vial Sliding Scale -] 1 vial SQ TIDAC #30 units 05/31/19 Omeprazole 1 tab PO DAILY 10/09/19 Sevelamer Carbonate [Renvela -] 1 tab PO AC 10/09/19 Acetaminophen [Tylenol .Regular Strength -] 650 mg PO Q4H PRN tablet 10/15/19 Albuterol 2.5/Ipratropium 0.5 [Duoneb -] 1 amp NEB RTID PRN #90 amp 10/15/19 Blood Sugar Diagnostic [Test Strips] 1 each MC TID 30 Days #90 strip 10/15/19 Insulin (Levemir) [Levemir Vial] 24 units SQ BID@0700,2200 units 10/15/19 Melatonin 5 mg PO HS PRN tab 10/15/19
[2019-10-15 13:34] VITALS: BP 123/48; PULSE 76; TEMP 98.1
== END 2019-10-15 13:20 | disposition home or self-care (01) | DRG 291 ==
LOC: JER 06:52 → JERBED 09:59 → J5S 18:07
PROVIDERS: ADMIT Internal Medicine; ATTEND Internal Medicine
DX: I13.0 Hypertensive heart and chronic kidney disease with heart failure and stage 1 through stage 4 chronic kidney disease, or unspecified chronic kidney disease (principal); I50.43 Acute on chronic combined systolic (congestive) and diastolic (congestive) heart failure; J18.9 Pneumonia, unspecified organism; G93.41 Metabolic encephalopathy; Z68.41 Body mass index [BMI] 40.0-44.9, adult; E11.9 Type 2 diabetes mellitus without complications; E66.9 Obesity, unspecified; K21.9 Gastro-esophageal reflux disease without esophagitis; E78.5 Hyperlipidemia, unspecified; I25.119 Atherosclerotic heart disease of native coronary artery with unspecified angina pectoris; Z98.61 Coronary angioplasty status; G47.00 Insomnia, unspecified; N18.3 Chronic kidney disease, stage 3 (moderate)
CPT/HCPCS: 36415; 71045-TC-FY; 80048; 80053; 81003; 82803; 82962; 83036; 83605; 83735; 83880; 84100; 84443; 84484; 84550; 85025; 85610; 85730; 86738; 87040; 87086; 87804; 87899; 93005; 93010; 97116-GP; 97162-GP; 99285-25; J1644

== ENCOUNTER 2019-12-14 02:00 | Inpatient (IN) | payer OTHER ==
[2019-12-14] MEDS ORDERED: GlUCAGON HUMAN RECOMBINANT 1 MG/VIAL ONE (02:07)
--- NOTE | 2019-12-14 02:16 | PDOC ---
Attending Attestation - Resident Resident Name: Justo James - ED Attending Attestation I have performed the following: I have examined & evaluated the patient, The case was reviewed & discussed with the resident, I agree w/resident's findings & plan - HPI HPI: 12/14/19 06:40 see resident hpi - Physicial Exam PE: 12/14/19 06:40 see resident exam - Medical Decision Making 12/14/19 06:40 74-year-old female with hypoglycemia and lethargy despite normal blood sugar CT scan of the brain shows no acute abnormality Patient will be admitted to medical service for further observation
[2019-12-14] MEDS ORDERED: DEXTROSE 50%-WATER - 25 GM/50 ML VIAL IVPUSH ONE (02:18)
[2019-12-14] MEDS ORDERED: GLUCAGON 1 MG KIT IM ONE (02:18)
[2019-12-14] MEDS ORDERED: DEXTROSE 10%-WATER - 1,000 ML IV SCH (02:30)
--- NOTE | 2019-12-14 02:47 | PDOC ---
History of Present Illness - General Chief Complaint: Blood Sugar Problem Stated Complaint: HYPOGLYCEMIA Time Seen by Provider: 12/14/19 02:14 History Source: Patient Exam Limitations: No Limitations, Clinical Condition - History of Present Illness Initial Comments: Yesenia Klye is a 74 yo F w a pmh of IDDM, COPD not on home O2, CAD s/p pacemaker, HTN, HLD, anemia, chronic venous insufficiency, renal insufficiency, GERD, and OA presents to the [facility] er stuporous and barely responsive. The patient states she is unsure of which medications she took but might have by accidentally taken twice as much of her long acting stong insulin as she is supposed to. She does not remember any names and is primarily only responsive to noxious stimuli. Per EMS on route her glucose was 47 and they gave the patient 2 grams of glucagon IM bc IV access could not be established. Here in the ER the patient denies having any pain but she is confused and barely answering questions. Fingerstick on arrival was above 150 after the glucagon from EMS. PCP: Iesha Combs PSH: AICD, Permanent Pacemaker, Stent Social Hx: Denies smoking, drinking, or other substance usage Allerges: NKA, NKDA Past History - Past Medical History Allergies/Adverse Reactions: Allergies Allergy/AdvReac Type Severity Reaction Status Date / Time No Known Allergies Allergy Verified 10/09/19 06:58 Home Medications: Ambulatory Orders Allopurinol [Zyloprim -] 100 mg PO DAILY 02/24/16 Cholecalciferol (Vitamin D3) [Vitamin D3] 1,000 unit PO DAILY 05/24/18 Furosemide [Lasix -] 40 mg PO DAILY 05/24/18 Pravastatin Sodium 20 mg PO HS 05/24/18 Aspirin Coated [Ecotrin -] 81 mg PO DAILY tablet.ec 01/30/19 Amlodipine Besylate 5 mg PO DAILY 03/14/19 Clopidogrel Bisulfate [Clopidogrel] 75 mg PO DAILY 03/14/19 Valsartan [Diovan] 40 mg PO DAILY tablet 03/20/19 Gabapentin [Neurontin -] 300 mg PO BID #60 capsule 03/28/19 Lactobacillus Acidophilus [Bacid -] 1 tab PO DAILY #30 tab 03/28/19 Carvedilol [Coreg -] 6.25 mg PO BID #60 tablet 05/31/19 Insulin Sliding Scale [Novolog Vial Sliding Scale -] 1 vial SQ TIDAC #30 units 05/31/19 Omeprazole 1 tab PO DAILY 10/09/19 Sevelamer Carbonate [Renvela -] 1 tab PO AC 10/09/19 Acetaminophen [Tylenol .Regular Strength -] 650 mg PO Q4H PRN tablet 10/15/19 Albuterol 2.5/Ipratropium 0.5 [Duoneb -] 1 amp NEB RTID PRN #90 amp 10/15/19 Blood Sugar Diagnostic [Test Strips] 1 each MC TID 30 Days #90 strip 10/15/19 Insulin (Levemir) [Levemir Vial] 24 units SQ BID@0700,2200 units 10/15/19 Melatonin 5 mg PO HS PRN tab 10/15/19 Anemia: Yes Asthma: Yes Cancer: No Cardiac Disorders: Yes (HCVD, chest pain syndrome) CVA: No COPD: Yes CHF: Yes Dementia: No Diabetes: Yes GI Disorders: No Disorders: No HTN: Yes Hypercholesterolemia: Yes Liver Disease: No Psychiatric Problems: Yes (anxiety) Seizures: No Thyroid Disease: No - Surgical History Abdominal Surgery: No Appendectomy: No Cardiac Surgery: Yes (STENTS/PPM 2007) Cholecystectomy: No Lung Surgery: No Neurologic Surgery: No Orthopedic Surgery: No - Reproductive History Cervical CA: No Dysfunctional Uterine Bleeding: No Ectopic : No Endometrial CA: No Polycystic Ovaries: No Therapeutic (s) & number: No Tubal Ligation: No - Immunization History Td Vaccination: Yes TDAP Vaccination: Yes Immunization Up to Date: Yes - Psycho Social/Smoking Cessation Hx Smoking Status: No Smoking History: Never smoked Have you smoked in the past 12 months: No Number of Cigarettes Smoked Daily: 0 Information on smoking cessation initiated: No Hx Alcohol Use: No Drug/Substance Use Hx: No Substance Use Type: None Hx Substance Use Treatment: No Review of Systems - Review of Systems Able to Perform ROS?: No (Patent lethargic) *Physical Exam - Vital Signs Last Vital Signs Temp Pulse Resp BP Pulse Ox 67 19 151/70 99 12/14/19 02:24 12/14/19 02:24 12/14/19 02:24 12/14/19 02:24 - Physical Exam GENERAL: Obese. Sleepy. Confused. No apparent distress. HEENT: Normocephalic, atraumatic. PERRL, EOM intact. CARDIOVASCULAR: Normal S1, S2. Regular rate and rhythm. PULMONARY: No evidence of respiratory distress. Lungs clear to auscultation bilaterally. No wheezing, rales or rhonchi. ABDOMEN: Soft, non-distended, non-tender. EXTREMITIES: Normal ROM in all four extremities. No gross deformities. SKIN: Warm, dry. No rash NEUROLOGICAL: No focal neurological deficits. ED Treatment Course - LABORATORY CBC & Chemistry Diagram: 12/14/19 02:30 12/14/19 02:30 - ADDITIONAL ORDERS Additional order review: Laboratory Results 12/14/19 12/14/19 02:41 02:17 POC Glucometer 172 153 12/14/19 12/14/19 02:41 02:17 POC Glucometer 172 153 Medical Decision Making - Medical Decision Making Yesenia Kyle is a 74 yo F w a pmh of IDDM, COPD not on home O2, CAD s/p pacemaker, HTN, HLD, anemia, chronic venous insufficiency, renal insufficiency, GERD, and OA presents to the [facility] er stuporous and barely responsive. The patient states she is unsure of which medications she took but might have by accidentally taken twice as much of her long acting stong insulin as she is supposed to. She does not remember any names and is primarily only responsive to noxious stimuli. Per EMS on route her glucose was 47 and they gave the patient 2 grams of glucagon IM bc IV access could not be established. Here in the ER the patient denies having any pain but she is confused and barely answering questions. Fingerstick on arrival was above 150 after the glucagon from EMS. Vital Signs Temp Pulse Resp BP Pulse Ox 97.4 F L 70 19 141/63 100 12/14/19 04:39 12/14/19 04:39 12/14/19 04:39 12/14/19 04:39 12/14/19 04:39 DDx IBNLT: Medication overdose, DKA, HHNS, electrolyte/metabolic disturbance, brain bleed Plan: Labs, BGm q1, urine, head CT, admit for confusion and hypoglycemic monitoring Discharge - Discharge Information Problems reviewed: Yes Clinical Impression/Diagnosis: Hypoglycemia Altered mental status Qualifiers: Altered mental status type: unspecified Qualified Code(s): R41.82 - Altered mental status, unspecified Condition: Stable - Admission Yes - Follow up/Referral Referrals: Iesha Combs MD [Primary Care Provider] - - Patient Discharge Instructions - Post Discharge Activity
[2019-12-14 03:01] LABS: VENOUS PC02 61.7 mmHg (38-52); VENOUS PH 7.27 (7.31-7.41)
[2019-12-14 03:04] LABS: BASO % 0.8 % (0-2.0); EOS % 1.1 % (0-4.5); HEMATOCRIT 34.2 % (32.4-45.2); HEMOGLOBIN 10.9 GM/dL (10.7-15.3); LYMPH % 12.9 % (8-40); MCH 21.9 pg (25.7-33.7); MCHC 31.7 g/dl (32.0-36.0); MEAN CELL VOLUME 68.9 fl (80-96); MEAN PLT VOLUME 11.1 fl (7.5-11.1); MONO % 4.4 % (3.8-10.2); NEUT % 80.8 % (42.8-82.8); PLATELET COUNT 184 K/MM3 (134-434); RBC 4.96 M/mm3 (3.60-5.2); RDW 16.2 % (11.6-15.6)
[2019-12-14 03:24] LABS: INR 0.96 (0.83-1.09); PROTHROMBIN TIME (PATIENT) 11.3 SEC (9.7-13.0); VENOUS PO2 < 49 mmHg (28-48)
[2019-12-14 03:27] LABS: ACTIVATED PTT 36.9 SECONDS (25.2-36.5)
[2019-12-14 03:37] LABS: ALBUMIN 3.7 g/dl (3.4-5.0); BILIRUBIN,TOTAL 0.1 mg/dL (0.2-1); BLOOD UREA NITROGEN 42.4 mg/dL (7-18); CALCIUM 9.5 mg/dL (8.5-10.1); TOT PROT 7.6 g/dl (6.4-8.2)
[2019-12-14 04:20] LABS: CARBOXYHEMOGLOBIN 0.8 % (0-2)
[2019-12-14 04:29] LABS: PH,URINE 6.5 (5.0-8.0); URINE APPEARANCE CLEAR; URINE BILIRUBIN NEGATIVE (NEGATIVE); URINE COLOR YELLOW; URINE GLUCOSE (UA) NEGATIVE (NEGATIVE); URINE KETONE NEGATIVE (NEGATIVE); URINE LEUK ESTERASE NEGATIVE (NEGATIVE); URINE NITRITE NEGATIVE (NEGATIVE); URINE PROTEIN TRACE (NEGATIVE); URINE UROBILINOGEN 0.2 mg/dL (0.2-1.0)
[2019-12-14 06:25] LABS: ARTERIAL BLD GAS O2 SATURATION 96.7 % (95-98); ARTERIAL BLOOD GAS BASE EXCESS -0.2 meq/l (-2-2); ARTERIAL BLOOD GAS PCO2 47.9 mmHg (35-45); ARTERIAL BLOOD GAS PO2 92.8 mmHg (80-100); ARTERIAL BLOOD GAS pH 7.35 (7.35-7.45); CARBOXYHEMOGLOBIN 0.8 % (0-2)
[2019-12-14] MEDS ORDERED: ALBUTEROL SO4 2.5/IPRATROPIUM 0.5 INH SOL 3 ML VIAL.NEB. NEB PRN (06:27)
--- NOTE | 2019-12-14 06:36 | HP ---
Admitting History and Physical - Primary Care Physician PCP: Iesha Combs - Admission Chief Complaint: Hypoglycemia, Lethargy History of Present Illness: This is a 74 y/o woman with a significant medical history of IDDM, HTN, HLD, CAD s/p PPM, stent, COPD (no home O2), Anemia, Renal insufficiency, GERD, OA, Chronic Venous Insufficiency. Who presents to the ED for hypoglycemia, lethargy. Per patient's caregiver the patient had a BGM of 198 at 6pm, she was given her Levemir and had a snack before bedtime. This morning the caregiver was told that the patient was moaning and confused, her BGM was 38, per the caregiver she was given sugar water. EMS was called on their arrival BGM was 48. Glucagon 2gm was given en route. BGM on arrival to ER 150. Patient is alert and oriented making good eye contact. She speaks Creole, the caregiver translated. Patient reports R- hip pain which is chronic per caregiver. Patient denies fever, chills, cough, SOB, CP, palpitations, AP, N/V/D, constipation, dysuria. 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) Pulmonary: Yes: COPD Gastrointestinal: Yes: GERD, Other (anemia, IRON DEF) Renal/: Yes: Renal Inusuff Heme/Onc: Yes: Anemia Musculoskeletal: Yes: Osteoarthritis Rheumatology: Yes: Gout Endocrine: Yes: Diabetes Mellitus - Past Surgical History Past Surgical History: Yes: AICD, Stent - Smoking History Smoking history: Never smoked Have you smoked in the past 12 months: No Aproximately how many cigarettes per day: 0 - Alcohol/Substance Use Hx Alcohol Use: No History of Substance Use: reports: None - 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) History of Recent Travel: No Home Medications - Allergies Allergies/Adverse Reactions: Allergies Allergy/AdvReac Type Severity Reaction Status Date / Time No Known Allergies Allergy Verified 10/09/19 06:58 - Home Medications Home Medications: Ambulatory Orders Allopurinol [Zyloprim -] 100 mg PO DAILY 02/24/16 Cholecalciferol (Vitamin D3) [Vitamin D3] 1,000 unit PO DAILY 05/24/18 Furosemide [Lasix -] 40 mg PO DAILY 05/24/18 Pravastatin Sodium 20 mg PO HS 05/24/18 Aspirin Coated [Ecotrin -] 81 mg PO DAILY tablet.ec 01/30/19 Amlodipine Besylate 5 mg PO DAILY 03/14/19 Clopidogrel Bisulfate [Clopidogrel] 75 mg PO DAILY 03/14/19 Valsartan [Diovan] 40 mg PO DAILY tablet 03/20/19 Gabapentin [Neurontin -] 300 mg PO BID #60 capsule 03/28/19 Lactobacillus Acidophilus [Bacid -] 1 tab PO DAILY #30 tab 03/28/19 Carvedilol [Coreg -] 6.25 mg PO BID #60 tablet 05/31/19 Insulin Sliding Scale [Novolog Vial Sliding Scale -] 1 vial SQ TIDAC #30 units 05/31/19 Omeprazole 1 tab PO DAILY 10/09/19 Sevelamer Carbonate [Renvela -] 1 tab PO AC 10/09/19 Acetaminophen [Tylenol .Regular Strength -] 650 mg PO Q4H PRN tablet 10/15/19 Albuterol 2.5/Ipratropium 0.5 [Duoneb -] 1 amp NEB RTID PRN #90 amp 10/15/19 Blood Sugar Diagnostic [Test Strips] 1 each MC TID 30 Days #90 strip 10/15/19 Insulin (Levemir) [Levemir Vial] 24 units SQ BID@0700,2200 units 10/15/19 Melatonin 5 mg PO HS PRN tab 10/15/19 Family Medical History Family History: Unable to Obtain Review of Systems - Review of Systems Constitutional: reports: No Symptoms Eyes: reports: No Symptoms HENT: reports: No Symptoms Neck: reports: No Symptoms Cardiovascular: reports: No Symptoms Respiratory: reports: No Symptoms Gastrointestinal: reports: No Symptoms Genitourinary: reports: No Symptoms Breasts: reports: No Symptoms Reported Musculoskeletal: reports: Joint Pain Integumentary: reports: No Symptoms Neurological: reports: Confusion Endocrine: reports: Intolerance to Cold Hematology/Lymphatic: reports: No Symptoms Psychiatric: reports: No Symptoms Pain Intensity: 6 Physical Examination Vital Signs: Vital Signs Temperature 97.4 F L 12/14/19 04:39 Pulse Rate 68 12/14/19 06:24 Respiratory Rate 18 12/14/19 06:24 Blood Pressure 121/79 12/14/19 06:24 O2 Sat by Pulse Oximetry (%) 98 12/14/19 06:24 Constitutional: Yes: Well Nourished, No Distress, Calm, Obese Eyes: Yes: WNL, Conjunctiva Clear, EOM Intact HENT: Yes: WNL, Atraumatic, Normocephalic Neck: Yes: WNL, Supple, Trachea Midline Cardiovascular: Yes: Pulse Irregular, S1, S2 Respiratory: Yes: WNL, Regular, CTA Bilaterally Gastrointestinal: Yes: WNL, Normal Bowel Sounds, Soft, Abdomen, Obese ...Rectal Exam: Yes: Deferred Renal/: Yes: WNL Breast(s): Yes: WNL Musculoskeletal: Yes: Joint Stiffness Extremities: Yes: WNL Edema: No Peripheral Pulses WNL: Yes Integumentary: Yes: Other (PVD b/l LE) Neurological: Yes: Alert, Oriented, Cran Nerves II-XII Intact ...Motor Strength: WNL Psychiatric: Yes: WNL, Alert, Oriented Labs: CBC, BMP 12/14/19 02:30 12/14/19 02:30 Laboratory Results - last 24 hr 12/14/19 12/14/19 12/14/19 02:17 02:30 02:30 WBC RBC Hgb Hct MCV MCH MCHC RDW Plt Count MPV Absolute Neuts (auto) Neutrophils % Lymphocytes % Monocytes % Eosinophils % Basophils % Nucleated RBC % PT with INR INR PTT (Actin FS) Anticoagulation Therapy Puncture Site Patient Temperature ABG pH ABG pCO2 at Pt Temp ABG pO2 at Pt Temp ABG HCO3 ABG O2 Sat (Measured) ABG O2 Content ABG Base Excess Jeramy Test VBG pH POC VBG pCO2 POC VBG pO2 VBG HCO3 VBG O2 Sat ([place]) VBG Base Excess Carboxyhemoglobin Methemoglobin O2 Delivery Device Oxygen Flow Rate Vent Mode Vent Rate Mechanical Rate PEEP Pressure Support Vent Sodium 144 Potassium 5.0 Chloride 110 H Carbon Dioxide 27 Anion Gap 7 L BUN 42.4 H Creatinine 2.0 H Est GFR (CKD-EPI)AfAm 27.61 Est GFR (CKD-EPI)NonAf 23.82 POC Glucometer 153 Random Glucose 115 H Lactic Acid Calcium 9.5 Total Bilirubin 0.1 L AST 14 L ALT 12 L Alkaline Phosphatase 213 H Creatine Kinase 62 Troponin I < 0.02 Total Protein 7.6 Albumin 3.7 Beta-Hydroxybutyrate 0.8 Urine Color Urine Appearance Urine pH Ur Specific [place] Urine Protein Urine Glucose (UA) Urine Ketones Urine Blood Urine Nitrite Urine Bilirubin Urine Urobilinogen Ur Leukocyte Esterase 12/14/19 12/14/19 12/14/19 02:30 02:30 02:30 WBC 9.0 RBC 4.96 Hgb 10.9 Hct 34.2 D MCV 68.9 L MCH 21.9 L MCHC 31.7 L RDW 16.2 H Plt Count 184 D MPV 11.1 D Absolute Neuts (auto) 7.3 Neutrophils % 80.8 D Lymphocytes % 12.9 D Monocytes % 4.4 Eosinophils % 1.1 D Basophils % 0.8 Nucleated RBC % 0 PT with INR 11.30 INR 0.96 PTT (Actin FS) 36.9 H Anticoagulation Therapy Puncture Site Patient Temperature ABG pH ABG pCO2 at Pt Temp ABG pO2 at Pt Temp ABG HCO3 ABG O2 Sat (Measured) ABG O2 Content ABG Base Excess Jeramy Test VBG pH POC VBG pCO2 POC VBG pO2 VBG HCO3 VBG O2 Sat ([place]) VBG Base Excess Carboxyhemoglobin Methemoglobin O2 Delivery Device Oxygen Flow Rate Vent Mode Vent Rate Mechanical Rate PEEP Pressure Support Vent Sodium Cancelled Potassium Cancelled Chloride Cancelled Carbon Dioxide Cancelled Anion Gap Cancelled BUN Cancelled Creatinine Cancelled Est GFR (CKD-EPI)AfAm Cancelled Est GFR (CKD-EPI)NonAf Cancelled POC Glucometer Random Glucose Cancelled Lactic Acid Calcium Cancelled Total Bilirubin Cancelled AST Cancelled ALT Cancelled Alkaline Phosphatase Cancelled Creatine Kinase Troponin I Total Protein Cancelled Albumin Cancelled Beta-Hydroxybutyrate Urine Color Urine Appearance Urine pH Ur Specific [place] Urine Protein Urine Glucose (UA) Urine Ketones Urine Blood Urine Nitrite Urine Bilirubin Urine Urobilinogen Ur Leukocyte Esterase 12/14/19 12/14/19 12/14/19 02:30 02:41 03:23 WBC RBC Hgb Hct MCV MCH MCHC RDW Plt Count MPV Absolute Neuts (auto) Neutrophils % Lymphocytes % Monocytes % Eosinophils % Basophils % Nucleated RBC % PT with INR INR PTT (Actin FS) Anticoagulation Therapy Puncture Site Patient Temperature ABG pH ABG pCO2 at Pt Temp ABG pO2 at Pt Temp ABG HCO3 ABG O2 Sat (Measured) ABG O2 Content ABG Base Excess Jeramy Test VBG pH 7.27 L POC VBG pCO2 61.7 H POC VBG pO2 < 49 H VBG HCO3 27.7 VBG O2 Sat ([place]) 40.8 L VBG Base Excess 0.3 Carboxyhemoglobin Methemoglobin O2 Delivery Device Oxygen Flow Rate Vent Mode Vent Rate Mechanical Rate PEEP Pressure Support Vent Sodium Potassium Chloride Carbon Dioxide Anion Gap BUN Creatinine Est GFR (CKD-EPI)AfAm Est GFR (CKD-EPI)NonAf POC Glucometer 172 Random Glucose Lactic Acid Calcium Total Bilirubin AST ALT Alkaline Phosphatase Creatine Kinase Troponin I Total Protein Albumin Beta-Hydroxybutyrate Urine Color Yellow Urine Appearance Clear Urine pH 6.5 Ur Specific [place] 1.016 Urine Protein Trace Urine Glucose (UA) Negative Urine Ketones Negative Urine Blood Negative Urine Nitrite Negative Urine Bilirubin Negative Urine Urobilinogen 0.2 Ur Leukocyte Esterase Negative 12/14/19 12/14/19 12/14/19 03:23 03:23 04:30 WBC RBC Hgb Hct MCV MCH MCHC RDW Plt Count MPV Absolute Neuts (auto) Neutrophils % Lymphocytes % Monocytes % Eosinophils % Basophils % Nucleated RBC % PT with INR INR PTT (Actin FS) Anticoagulation Therapy Cancelled Puncture Site Cancelled Patient Temperature Cancelled ABG pH Cancelled ABG pCO2 at Pt Temp Cancelled ABG pO2 at Pt Temp Cancelled ABG HCO3 Cancelled ABG O2 Sat (Measured) Cancelled ABG O2 Content Cancelled ABG Base Excess Cancelled Jeramy Test Cancelled VBG pH POC VBG pCO2 POC VBG pO2 VBG HCO3 VBG O2 Sat ([place]) VBG Base Excess Carboxyhemoglobin 0.8 Methemoglobin < 1.0 O2 Delivery Device Cancelled Oxygen Flow Rate Cancelled Vent Mode Cancelled Vent Rate Cancelled Mechanical Rate Cancelled PEEP Cancelled Pressure Support Vent Cancelled Sodium Potassium Chloride Carbon Dioxide Anion Gap BUN Creatinine Est GFR (CKD-EPI)AfAm Est GFR (CKD-EPI)NonAf POC Glucometer Random Glucose Lactic Acid 1.5 Calcium Total Bilirubin AST ALT Alkaline Phosphatase Creatine Kinase Troponin I Total Protein Albumin Beta-Hydroxybutyrate Urine Color Urine Appearance Urine pH Ur Specific [place] Urine Protein Urine Glucose (UA) Urine Ketones Urine Blood Urine Nitrite Urine Bilirubin Urine Urobilinogen Ur Leukocyte Esterase 12/14/19 12/14/19 12/14/19 04:41 05:24 05:54 WBC RBC Hgb Hct MCV MCH MCHC RDW Plt Count MPV Absolute Neuts (auto) Neutrophils % Lymphocytes % Monocytes % Eosinophils % Basophils % Nucleated RBC % PT with INR INR PTT (Actin FS) Anticoagulation Therapy No Result Required. Puncture Site Patient Temperature ABG pH ABG pCO2 at Pt Temp ABG pO2 at Pt Temp ABG HCO3 ABG O2 Sat (Measured) ABG O2 Content ABG Base Excess Jeramy Test VBG pH POC VBG pCO2 POC VBG pO2 VBG HCO3 VBG O2 Sat ([place]) VBG Base Excess Carboxyhemoglobin Methemoglobin O2 Delivery Device No Result Required. Oxygen Flow Rate No Result Required. Vent Mode No Result Required. Vent Rate No Result Required. Mechanical Rate No Result Required. PEEP Pressure Support Vent No Result Required. Sodium Potassium Chloride Carbon Dioxide Anion Gap BUN Creatinine Est GFR (CKD-EPI)AfAm Est GFR (CKD-EPI)NonAf POC Glucometer 190 Random Glucose Lactic Acid 1.8 Calcium Total Bilirubin AST ALT Alkaline Phosphatase Creatine Kinase Troponin I Total Protein Albumin Beta-Hydroxybutyrate Urine Color Urine Appearance Urine pH Ur Specific [place] Urine Protein Urine Glucose (UA) Urine Ketones Urine Blood Urine Nitrite Urine Bilirubin Urine Urobilinogen Ur Leukocyte Esterase Intake & Output 12/11/19 12/12/19 12/13/19 12/14/19 23:59 23:59 23:59 23:59 Weight 99.79 kg Current Medications Generic Name Dose Route Start Last Admin Trade Name Freq PRN Reason Stop Dose Admin Albuterol/Ipratropium 1 amp 12/14/19 06:27 Duoneb - NEB RTID PRN ASTHMA Allopurinol 100 mg 12/14/19 10:00 Zyloprim - PO DAILY [facility] Amlodipine Besylate 5 mg 12/14/19 10:00 Norvasc - PO DAILY [facility] Aspirin 81 mg 12/14/19 10:00 Ecotrin - PO DAILY [facility] Carvedilol 6.25 mg 12/14/19 10:00 Coreg - PO BID [facility] Clopidogrel Bisulfate 75 mg 12/14/19 10:00 Plavix - PO DAILY [facility] Gabapentin 300 mg 12/14/19 10:00 Neurontin - PO BID [facility]ARTIN Dextrose 1,000 mls @ 125 mls/hr 12/14/19 02:30 12/14/19 03:02 D10w - IV Not Given ASDIR MARTIN Dextrose 1,000 mls @ 30 mls/hr 12/14/19 06:30 D5w - IV .[id number] MARTIN Non-Formulary Medication 1 tab 12/14/19 10:00 Omeprazole Pediatric Solution PO DAILY [facility]IN Non-Formulary Medication 20 mg 12/14/19 22:00 Pravastatin Sodium [Pravastatin Sodium] PO HS MARTIN Sevelamer Carbonate mg 12/14/19 06:30 Renvela - PO AC [facility]IN Valsartan 40 mg 12/14/19 10:00 Diovan - PO DAILY [facility] Imaging - Results Cat Scan: Report Reviewed, Image Reviewed EKG: Image Reviewed Problem List - Problems (1) Hypoglycemia Assessment/Plan: Likely secondary to medication vs dehydration Glucagon given by EMS BGM in ED- 153 Appreciate Endocrinology consult BGMs Monitor BMP IVF- D5W Diabetic Soft Diet Hold Levemir Monitor vitals Code(s): E16.2 - HYPOGLYCEMIA, UNSPECIFIED (2) Acute metabolic encephalopathy Assessment/Plan: Likely secondary to Hypoglycemia Head CT- neg ICH, mass or lesion Ammonia Level 10.30 Fall precautions Neurochecks Consider Neurology consult if condition worsens Monitor CBC, BMP Monitor vitals Code(s): G93.41 - METABOLIC ENCEPHALOPATHY (3) Anemia Assessment/Plan: stable Hgb10.9 Will transfuse if Hgb < 7.0 Monitor CBC Code(s): D64.9 - ANEMIA, UNSPECIFIED Qualifiers: Anemia type: due to chronic kidney disease Chronic kidney disease stage: stage 3 (moderate) Qualified Code(s): N18.3 - Chronic kidney disease, stage 3 (moderate); D63.1 - Anemia in chronic kidney disease (4) Arthritis Assessment/Plan: Continue Tylenol prn Lidocaine Patch Code(s): M19.90 - UNSPECIFIED OSTEOARTHRITIS, UNSPECIFIED SITE (5) CAD (coronary artery disease) Assessment/Plan: Continue home meds EKG- reviewed Code(s): I25.10 - ATHSCL HEART DISEASE OF [place] CORONARY ARTERY W/O ANG PCTRS Qualifiers: Coronary Disease-Associated Artery/Lesion type: unspecified vessel or lesion type Associated angina: without angina (6) CHF (congestive heart failure) Assessment/Plan: stable Continue Lasix Daily weights Strict INOs Monitor vitals Code(s): I50.9 - HEART FAILURE, UNSPECIFIED Qualifiers: Heart failure type: combined systolic and diastolic Heart failure chronicity: acute on chronic Qualified Code(s): I50.43 - Acute on chronic combined systolic (congestive) and diastolic (congestive) heart failure (7) HTN (hypertension) Assessment/Plan: stable Monitor BP Continue home meds Monitor renal function Code(s): I10 - ESSENTIAL (PRIMARY) HYPERTENSION Qualifiers: Hypertension type: essential hypertension Qualified Code(s): I10 - Essential (primary) hypertension (8) ICD (implantable cardioverter-defibrillator) in place Assessment/Plan: per pt's caregiver, the patient was seen yesterday by her quality systems engineer EKG and PPM interrogated at the office Code(s): Z95.810 - PRESENCE OF AUTOMATIC (IMPLANTABLE) CARDIAC DEFIBRILLATOR Assessment/Plan This is a 74 y/o woman admitted for Hypoglycemia and Lethargy for further evaluation of their emergent condition. Plan: See Problem List FEN D5W@30ml/hr Replete lytes prn Soft Diabetic, Low Na Diet DVT ppx OOB SCDs Heparin SQ Code Status: Full Code, HCP Dispo: Requires Inpatient Care Visit type - Emergency Visit Emergency Visit: Yes ED Registration Date: 12/14/19 Care time: The patient presented to the Emergency Department on the above date and was hospitalized for further evaluation of their emergent condition. - New Patient This patient is new to me today: Yes Date on this admission: 12/14/19 - Critical Care Critical Care patient: No
[2019-12-14 06:42] LABS: ALLENS TEST POSITIVE
[2019-12-14] MEDS: DEXTROSE 5%-WATER - 1,000 ML IV SCH (07:00)
[2019-12-14 07:44] LABS: PLATELET ESTIMATE ADEQUATE
[2019-12-14 11:07] VITALS: BMI 37.3
[2019-12-14] MEDS: SEVELAMER CARBONATE 800 MG TAB (FP) PO SCH ×2 (11:33→17:05)
[2019-12-14] MEDS: amLODIPine BESYLATE 5 MG TABLET (FP) PO SCH (11:33)
[2019-12-14] MEDS: CARVEDILOL 6.25 MG TABLET (FP) PO SCH ×2 (11:34→21:29)
[2019-12-14] MEDS: GABAPENTIN 300 MG CAPSULE PO SCH ×2 (11:34→21:29)
[2019-12-14] MEDS: PANTOPRAZOLE 20 MG TABLET PO SCH (11:34)
[2019-12-14] MEDS: ASPIRIN COATED 81 MG TABLET.EC PO SCH (11:34)
[2019-12-14] MEDS: CLOPIDOGREL BISULFATE 75 MG TABLET (FP) PO SCH (11:34)
[2019-12-14] MEDS: ALLOPURINOL 100 MG TABLET (FP) PO SCH (11:34)
--- NOTE | 2019-12-14 13:42 | PN ---
Progress Note (short form) - Note Progress Note: has labile blood sugars at home-- unsure if she is giving herself insulin correctly Vital Signs - 24 hr 12/14/19 12/14/19 12/14/19 02:24 04:39 06:24 Temperature 97.4 F L Pulse Rate 67 Pulse Rate [ 70 Apical] Pulse Rate [ 68 Right Radial] Respiratory 19 19 18 Rate Blood Pressure 151/70 Blood Pressure 141/63 121/79 [Right Arm] O2 Sat by Pulse 99 100 98 Oximetry (%) 12/14/19 12/14/19 12/14/19 06:57 09:00 09:45 Temperature 97.4 F L 98.1 F Pulse Rate Pulse Rate [ 76 Apical] Pulse Rate [ 76 72 Right Radial] Respiratory 19 20 Rate Blood Pressure Blood Pressure 156/66 144/75 [Right Arm] O2 Sat by Pulse 98 98 Oximetry (%) 12/14/19 10:00 Temperature 98 F Pulse Rate 77 Pulse Rate [ Apical] Pulse Rate [ Right Radial] Respiratory 20 Rate Blood Pressure 151/67 Blood Pressure [Right Arm] O2 Sat by Pulse Oximetry (%) Current Medications Generic Name Dose Route Start Last Admin Trade Name Freq PRN Reason Stop Dose Admin Albuterol/Ipratropium 1 amp 12/14/19 06:27 Duoneb - NEB RTID PRN ASTHMA Allopurinol 100 mg 12/14/19 10:00 12/14/19 11:34 Zyloprim - PO 100 mg DAILY MARTIN Administration Amlodipine Besylate 5 mg 12/14/19 10:00 12/14/19 11:33 Norvasc - PO 5 mg DAILY MARTIN Administration Aspirin 81 mg 12/14/19 10:00 12/14/19 11:34 Ecotrin - PO 81 mg DAILY MARTIN Administration Atorvastatin Calcium 10 mg 12/14/19 22:00 Lipitor - PO HS MARTIN Carvedilol 6.25 mg 12/14/19 10:00 12/14/19 11:34 Coreg - PO 6.25 mg BID MARTIN Administration Clopidogrel Bisulfate 75 mg 12/14/19 10:00 12/14/19 11:34 Plavix - PO 75 mg DAILY MARTIN Administration Gabapentin 300 mg 12/14/19 10:00 12/14/19 11:34 Neurontin - PO 300 mg BID MARTIN Administration Dextrose 1,000 mls @ 30 mls/hr 12/14/19 06:30 02/06/20 07:00 D5w - IV 30 mls/hr ASDIR MARTIN Administration Pantoprazole Sodium 20 mg 12/14/19 10:00 12/14/19 11:34 Protonix - PO 20 mg DAILY MARTIN Administration Sevelamer Carbonate 800 mg 12/14/19 12:00 12/14/19 11:33 Renvela - PO 800 mg TIDCM MARTIN Administration Valsartan 40 mg 12/14/19 10:00 Diovan - PO DAILY MARTIN Laboratory Results - last 24 hr 12/14/19 12/14/19 12/14/19 02:17 02:30 02:30 WBC RBC Hgb Hct MCV MCH MCHC RDW Plt Count MPV Absolute Neuts (auto) Neutrophils % Lymphocytes % Monocytes % Eosinophils % Basophils % Nucleated RBC % Hypochromia Platelet Estimate Platelet Comment Polychromasia Poikilocytosis Microcytosis Spherocytes PT with INR INR PTT (Actin FS) Anticoagulation Therapy Puncture Site Patient Temperature ABG pH ABG pCO2 at Pt Temp ABG pO2 at Pt Temp ABG HCO3 ABG O2 Sat (Measured) ABG O2 Content ABG Base Excess Jeramy Test VBG pH POC VBG pCO2 POC VBG pO2 VBG HCO3 VBG O2 Sat ([place]) VBG Base Excess Carboxyhemoglobin Methemoglobin O2 Delivery Device Oxygen Flow Rate Vent Mode Vent Rate Mechanical Rate PEEP Pressure Support Vent Sodium 144 Potassium 5.0 Chloride 110 H Carbon Dioxide 27 Anion Gap 7 L BUN 42.4 H Creatinine 2.0 H Est GFR (CKD-EPI)AfAm 27.61 Est GFR (CKD-EPI)NonAf 23.82 POC Glucometer 153 Random Glucose 115 H Lactic Acid Calcium 9.5 Total Bilirubin 0.1 L AST 14 L ALT 12 L Alkaline Phosphatase 213 H Ammonia Creatine Kinase 62 Troponin I < 0.02 Total Protein 7.6 Albumin 3.7 Beta-Hydroxybutyrate 0.8 Urine Color Urine Appearance Urine pH Ur Specific [place] Urine Protein Urine Glucose (UA) Urine Ketones Urine Blood Urine Nitrite Urine Bilirubin Urine Urobilinogen Ur Leukocyte Esterase 12/14/19 12/14/19 12/14/19 02:30 02:30 02:30 WBC 9.0 RBC 4.96 Hgb 10.9 Hct 34.2 D MCV 68.9 L MCH 21.9 L MCHC 31.7 L RDW 16.2 H Plt Count 184 D MPV 11.1 D Absolute Neuts (auto) 7.3 Neutrophils % 80.8 D Lymphocytes % 12.9 D Monocytes % 4.4 Eosinophils % 1.1 D Basophils % 0.8 Nucleated RBC % 0 Hypochromia 2+ Platelet Estimate Adequate Platelet Comment No clotting detected Polychromasia 1+ Poikilocytosis 1+ Microcytosis 2+ Spherocytes 1+ PT with INR 11.30 INR 0.96 PTT (Actin FS) 36.9 H Anticoagulation Therapy Puncture Site Patient Temperature ABG pH ABG pCO2 at Pt Temp ABG pO2 at Pt Temp ABG HCO3 ABG O2 Sat (Measured) ABG O2 Content ABG Base Excess Jeramy Test VBG pH POC VBG pCO2 POC VBG pO2 VBG HCO3 VBG O2 Sat ([place]) VBG Base Excess Carboxyhemoglobin Methemoglobin O2 Delivery Device Oxygen Flow Rate Vent Mode Vent Rate Mechanical Rate PEEP Pressure Support Vent Sodium Cancelled Potassium Cancelled Chloride Cancelled Carbon Dioxide Cancelled Anion Gap Cancelled BUN Cancelled Creatinine Cancelled Est GFR (CKD-EPI)AfAm Cancelled Est GFR (CKD-EPI)NonAf Cancelled POC Glucometer Random Glucose Cancelled Lactic Acid Calcium Cancelled Total Bilirubin Cancelled AST Cancelled ALT Cancelled Alkaline Phosphatase Cancelled Ammonia Creatine Kinase Troponin I Total Protein Cancelled Albumin Cancelled Beta-Hydroxybutyrate Urine Color Urine Appearance Urine pH Ur Specific [place] Urine Protein Urine Glucose (UA) Urine Ketones Urine Blood Urine Nitrite Urine Bilirubin Urine Urobilinogen Ur Leukocyte Esterase 12/14/19 12/14/19 12/14/19 02:30 02:41 03:23 WBC RBC Hgb Hct MCV MCH MCHC RDW Plt Count MPV Absolute Neuts (auto) Neutrophils % Lymphocytes % Monocytes % Eosinophils % Basophils % Nucleated RBC % Hypochromia Platelet Estimate Platelet Comment Polychromasia Poikilocytosis Microcytosis Spherocytes PT with INR INR PTT (Actin FS) Anticoagulation Therapy Puncture Site Patient Temperature ABG pH ABG pCO2 at Pt Temp ABG pO2 at Pt Temp ABG HCO3 ABG O2 Sat (Measured) ABG O2 Content ABG Base Excess Jeramy Test VBG pH 7.27 L POC VBG pCO2 61.7 H POC VBG pO2 < 49 H VBG HCO3 27.7 VBG O2 Sat ([place]) 40.8 L VBG Base Excess 0.3 Carboxyhemoglobin Methemoglobin O2 Delivery Device Oxygen Flow Rate Vent Mode Vent Rate Mechanical Rate PEEP Pressure Support Vent Sodium Potassium Chloride Carbon Dioxide Anion Gap BUN Creatinine Est GFR (CKD-EPI)AfAm Est GFR (CKD-EPI)NonAf POC Glucometer 172 Random Glucose Lactic Acid Calcium Total Bilirubin AST ALT Alkaline Phosphatase Ammonia Creatine Kinase Troponin I Total Protein Albumin Beta-Hydroxybutyrate Urine Color Yellow Urine Appearance Clear Urine pH 6.5 Ur Specific [place] 1.016 Urine Protein Trace Urine Glucose (UA) Negative Urine Ketones Negative Urine Blood Negative Urine Nitrite Negative Urine Bilirubin Negative Urine Urobilinogen 0.2 Ur Leukocyte Esterase Negative 12/14/19 12/14/19 12/14/19 03:23 03:23 04:30 WBC RBC Hgb Hct MCV MCH MCHC RDW Plt Count MPV Absolute Neuts (auto) Neutrophils % Lymphocytes % Monocytes % Eosinophils % Basophils % Nucleated RBC % Hypochromia Platelet Estimate Platelet Comment Polychromasia Poikilocytosis Microcytosis Spherocytes PT with INR INR PTT (Actin FS) Anticoagulation Therapy Cancelled Puncture Site Cancelled Patient Temperature Cancelled ABG pH Cancelled ABG pCO2 at Pt Temp Cancelled ABG pO2 at Pt Temp Cancelled ABG HCO3 Cancelled ABG O2 Sat (Measured) Cancelled ABG O2 Content Cancelled ABG Base Excess Cancelled Jeramy Test Cancelled VBG pH POC VBG pCO2 POC VBG pO2 VBG HCO3 VBG O2 Sat ([place]) VBG Base Excess Carboxyhemoglobin 0.8 Methemoglobin < 1.0 O2 Delivery Device Cancelled Oxygen Flow Rate Cancelled Vent Mode Cancelled Vent Rate Cancelled Mechanical Rate Cancelled PEEP Cancelled Pressure Support Vent Cancelled Sodium Potassium Chloride Carbon Dioxide Anion Gap BUN Creatinine Est GFR (CKD-EPI)AfAm Est GFR (CKD-EPI)NonAf POC Glucometer Random Glucose Lactic Acid 1.5 Calcium Total Bilirubin AST ALT Alkaline Phosphatase Ammonia Creatine Kinase Troponin I Total Protein Albumin Beta-Hydroxybutyrate Urine Color Urine Appearance Urine pH Ur Specific [place] Urine Protein Urine Glucose (UA) Urine Ketones Urine Blood Urine Nitrite Urine Bilirubin Urine Urobilinogen Ur Leukocyte Esterase 12/14/19 12/14/19 12/14/19 04:41 05:24 05:54 WBC RBC Hgb Hct MCV MCH MCHC RDW Plt Count MPV Absolute Neuts (auto) Neutrophils % Lymphocytes % Monocytes % Eosinophils % Basophils % Nucleated RBC % Hypochromia Platelet Estimate Platelet Comment Polychromasia Poikilocytosis Microcytosis Spherocytes PT with INR INR PTT (Actin FS) Anticoagulation Therapy No Result Required. Puncture Site Left radial Patient Temperature ABG pH 7.35 ABG pCO2 at Pt Temp 47.9 H ABG pO2 at Pt Temp 92.8 ABG HCO3 25.5 ABG O2 Sat (Measured) 96.7 ABG O2 Content 18.7 ABG Base Excess -0.2 Jeramy Test Positive VBG pH POC VBG pCO2 POC VBG pO2 VBG HCO3 VBG O2 Sat ([place]) VBG Base Excess Carboxyhemoglobin 0.8 Methemoglobin 1.1 O2 Delivery Device No Result Required. Oxygen Flow Rate Room air Vent Mode No Result Required. Vent Rate No Result Required. Mechanical Rate No Result Required. PEEP Pressure Support Vent No Result Required. Sodium Potassium Chloride Carbon Dioxide Anion Gap BUN Creatinine Est GFR (CKD-EPI)AfAm Est GFR (CKD-EPI)NonAf POC Glucometer 190 Random Glucose Lactic Acid 1.8 Calcium Total Bilirubin AST ALT Alkaline Phosphatase Ammonia Creatine Kinase Troponin I Total Protein Albumin Beta-Hydroxybutyrate Urine Color Urine Appearance Urine pH Ur Specific [place] Urine Protein Urine Glucose (UA) Urine Ketones Urine Blood Urine Nitrite Urine Bilirubin Urine Urobilinogen Ur Leukocyte Esterase 12/14/19 12/14/19 12/14/19 06:54 11:07 11:31 WBC RBC Hgb Hct MCV MCH MCHC RDW Plt Count MPV Absolute Neuts (auto) Neutrophils % Lymphocytes % Monocytes % Eosinophils % Basophils % Nucleated RBC % Hypochromia Platelet Estimate Platelet Comment Polychromasia Poikilocytosis Microcytosis Spherocytes PT with INR INR PTT (Actin FS) Anticoagulation Therapy Puncture Site Patient Temperature ABG pH ABG pCO2 at Pt Temp ABG pO2 at Pt Temp ABG HCO3 ABG O2 Sat (Measured) ABG O2 Content ABG Base Excess Jeramy Test VBG pH POC VBG pCO2 POC VBG pO2 VBG HCO3 VBG O2 Sat ([place]) VBG Base Excess Carboxyhemoglobin Methemoglobin O2 Delivery Device Oxygen Flow Rate Vent Mode Vent Rate Mechanical Rate PEEP Pressure Support Vent Sodium Potassium Chloride Carbon Dioxide Anion Gap BUN Creatinine Est GFR (CKD-EPI)AfAm Est GFR (CKD-EPI)NonAf POC Glucometer 158 219 Random Glucose Lactic Acid Calcium Total Bilirubin AST ALT Alkaline Phosphatase Ammonia 15.90 Creatine Kinase Troponin I Total Protein Albumin Beta-Hydroxybutyrate Urine Color Urine Appearance Urine pH Ur Specific [place] Urine Protein Urine Glucose (UA) Urine Ketones Urine Blood Urine Nitrite Urine Bilirubin Urine Urobilinogen Ur Leukocyte Esterase S1 S2 RRR Lungs decreased Abd- soft, NT edema+
--- NOTE | 2019-12-14 14:25 | EKG ---
Test Reason : Blood Pressure : / mmHG Vent. Rate : 074 BPM Atrial Rate : 074 BPM P-R Int : 000 ms QRS Dur : 176 ms QT Int : 478 ms P-R-T Axes : 033 115 091 degrees QTc Int : 530 ms POOR DATA QUALITY, INTERPRETATION MAY BE ADVERSELY AFFECTED Ventricular-paced rhythm ABNORMAL ECG WHEN COMPARED WITH ECG OF 09-OCT-2019 07:41, VENT. RATE HAS DECREASED BY 27 BPM Confirmed by JENNIFER PABON MD ([id number]) on 12/14/2019 2:25:19 PM Referred By: Confirmed By:JENNIFER PABON MD
[2019-12-14] MEDS: VALSARTAN 40 MG TABLET (FP) PO SCH (17:06)
[2019-12-14] MEDS: ATORVASTATIN CA 10 MG TABLET (FP) PO SCH (21:29)
[2019-12-14] MEDS ORDERED: INSULIN (LEVEMIR) 100 UNITS/ML UNITS SQ SCH (22:00)
--- NOTE | 2019-12-14 22:29 | CONSULT ---
Consult Consult Specialty:: endocrine Referred by:: doug tierney np Reason for Consultation:: uncontrolled dmt2 - History of Present Illness Chief Complaint: high sugars History of Present Illness: 74 y/o woman with pmh DMT2, HTN, HLD, CAD s/p PPM, stent, COPD (no home O2), Anemia, CKD, GERD, OA, Chronic Venous Insufficiency. Admitted with low blood sugar, lethargy. 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) Pulmonary: Yes: COPD Gastrointestinal: Yes: GERD, Other (anemia, IRON DEF) Renal/: Yes: Renal Inusuff Musculoskeletal: Yes: Osteoarthritis Rheumatology: Yes: Gout Endocrine: Yes: Diabetes Mellitus - Past Surgical History Past Surgical History: Yes: AICD, Stent - Alcohol/Substance Use Hx Alcohol Use: No History of Substance Use: reports: None - Smoking History Smoking history: Never smoked Have you smoked in the past 12 months: No Aproximately how many cigarettes per day: 0 - Social History 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) History of Recent Travel: No Home Medications - Allergies Allergies/Adverse Reactions: Allergies Allergy/AdvReac Type Severity Reaction Status Date / Time No Known Allergies Allergy Verified 10/09/19 06:58 - Home Medications Home Medications: Ambulatory Orders Allopurinol [Zyloprim -] 100 mg PO DAILY 02/24/16 Cholecalciferol (Vitamin D3) [Vitamin D3] 1,000 unit PO DAILY 05/24/18 Furosemide [Lasix -] 40 mg PO DAILY 05/24/18 Pravastatin Sodium 20 mg PO HS 05/24/18 Aspirin Coated [Ecotrin -] 81 mg PO DAILY tablet.ec 01/30/19 Amlodipine Besylate 5 mg PO DAILY 03/14/19 Clopidogrel Bisulfate [Clopidogrel] 75 mg PO DAILY 03/14/19 Valsartan [Diovan] 40 mg PO DAILY tablet 03/20/19 Gabapentin [Neurontin -] 300 mg PO BID #60 capsule 03/28/19 Lactobacillus Acidophilus [Bacid -] 1 tab PO DAILY #30 tab 03/28/19 Carvedilol [Coreg -] 6.25 mg PO BID #60 tablet 05/31/19 Insulin Sliding Scale [Novolog Vial Sliding Scale -] 1 vial SQ TIDAC #30 units 05/31/19 Omeprazole 1 tab PO DAILY 10/09/19 Sevelamer Carbonate [Renvela -] 1 tab PO AC 10/09/19 Acetaminophen [Tylenol .Regular Strength -] 650 mg PO Q4H PRN tablet 10/15/19 Albuterol 2.5/Ipratropium 0.5 [Duoneb -] 1 amp NEB RTID PRN #90 amp 10/15/19 Blood Sugar Diagnostic [Test Strips] 1 each MC TID 30 Days #90 strip 10/15/19 Insulin (Levemir) [Levemir Vial] 24 units SQ BID@0700,2200 units 10/15/19 Melatonin 5 mg PO HS PRN tab 10/15/19 Review of Systems - Review of Systems Constitutional: reports: No Symptoms Eyes: reports: No Symptoms HENT: reports: No Symptoms Neck: reports: No Symptoms Cardiovascular: reports: No Symptoms Respiratory: reports: Exercise Intolerance Gastrointestinal: reports: Bloating Genitourinary: reports: No Symptoms Breasts: reports: No Symptoms Reported Musculoskeletal: reports: Back Pain, Muscle Weakness Neurological: reports: Numbness Endocrine: reports: Unexplained Weight Gain Physical Exam Vital Signs: Vital Signs Temperature 98.4 F 12/14/19 15:00 Pulse Rate 86 12/14/19 15:00 Respiratory Rate 20 12/14/19 15:00 Blood Pressure 139/76 12/14/19 15:00 O2 Sat by Pulse Oximetry (%) 98 12/14/19 09:45 Constitutional: Yes: Calm Eyes: Yes: EOM Intact HENT: Yes: Normocephalic Neck: Yes: Trachea Midline Respiratory: Yes: CTA Bilaterally Gastrointestinal: Yes: Normal Bowel Sounds ...Rectal Exam: Yes: Deferred Renal/: Yes: WNL Musculoskeletal: Yes: Muscle Pain, Muscle Weakness Extremities: Yes: WNL Edema: No Neurological: Yes: Alert, Oriented Labs: CBC, BMP 12/14/19 02:30 12/14/19 02:30 Assessment/Plan Current Active Problems DMT2,ckd, dieabetic neuropathy Altered mental state (Acute) Hypoglycemia (Acute) Abnormal Lab Results 12/14/19 12/14/19 12/14/19 02:30 02:30 02:30 MCV 68.9 L MCH 21.9 L MCHC 31.7 L RDW 16.2 H PTT (Actin FS) 36.9 H ABG pCO2 at Pt Temp VBG pH POC VBG pCO2 POC VBG pO2 VBG O2 Sat (Z[place]) Chloride 110 H Anion Gap 7 L BUN 42.4 H Creatinine 2.0 H Random Glucose 115 H Total Bilirubin 0.1 L AST 14 L ALT 12 L Alkaline Phosphatase 213 H 12/14/19 12/14/19 02:30 05:24 MCV MCH MCHC RDW PTT (Actin FS) ABG pCO2 at Pt Temp 47.9 H VBG pH 7.27 L POC VBG pCO2 61.7 H POC VBG pO2 < 49 H VBG O2 Sat (Zenia) 40.8 L Chloride Anion Gap BUN Creatinine Random Glucose Total Bilirubin AST ALT Alkaline Phosphatase Laboratory Results - last 24 hr 12/14/19 12/14/19 12/14/19 02:17 02:30 02:30 WBC RBC Hgb Hct MCV MCH MCHC RDW Plt Count MPV Absolute Neuts (auto) Neutrophils % Lymphocytes % Monocytes % Eosinophils % Basophils % Nucleated RBC % Hypochromia Platelet Estimate Platelet Comment Polychromasia Poikilocytosis Microcytosis Spherocytes PT with INR INR PTT (Actin FS) Anticoagulation Therapy Puncture Site Patient Temperature ABG pH ABG pCO2 at Pt Temp ABG pO2 at Pt Temp ABG HCO3 ABG O2 Sat (Measured) ABG O2 Content ABG Base Excess Jeramy Test VBG pH POC VBG pCO2 POC VBG pO2 VBG HCO3 VBG O2 Sat ([place]) VBG Base Excess Carboxyhemoglobin Methemoglobin O2 Delivery Device Oxygen Flow Rate Vent Mode Vent Rate Mechanical Rate PEEP Pressure Support Vent Sodium 144 Potassium 5.0 Chloride 110 H Carbon Dioxide 27 Anion Gap 7 L BUN 42.4 H Creatinine 2.0 H Est GFR (CKD-EPI)AfAm 27.61 Est GFR (CKD-EPI)NonAf 23.82 POC Glucometer 153 Random Glucose 115 H Lactic Acid Calcium 9.5 Total Bilirubin 0.1 L AST 14 L ALT 12 L Alkaline Phosphatase 213 H Ammonia Creatine Kinase 62 Troponin I < 0.02 Total Protein 7.6 Albumin 3.7 Beta-Hydroxybutyrate 0.8 Urine Color Urine Appearance Urine pH Ur Specific [place] Urine Protein Urine Glucose (UA) Urine Ketones Urine Blood Urine Nitrite Urine Bilirubin Urine Urobilinogen Ur Leukocyte Esterase 12/14/19 12/14/19 12/14/19 02:30 02:30 02:30 WBC 9.0 RBC 4.96 Hgb 10.9 Hct 34.2 D MCV 68.9 L MCH 21.9 L MCHC 31.7 L RDW 16.2 H Plt Count 184 D MPV 11.1 D Absolute Neuts (auto) 7.3 Neutrophils % 80.8 D Lymphocytes % 12.9 D Monocytes % 4.4 Eosinophils % 1.1 D Basophils % 0.8 Nucleated RBC % 0 Hypochromia 2+ Platelet Estimate Adequate Platelet Comment No clotting detected Polychromasia 1+ Poikilocytosis 1+ Microcytosis 2+ Spherocytes 1+ PT with INR 11.30 INR 0.96 PTT (Actin FS) 36.9 H Anticoagulation Therapy Puncture Site Patient Temperature ABG pH ABG pCO2 at Pt Temp ABG pO2 at Pt Temp ABG HCO3 ABG O2 Sat (Measured) ABG O2 Content ABG Base Excess Jeramy Test VBG pH POC VBG pCO2 POC VBG pO2 VBG HCO3 VBG O2 Sat ([place]) VBG Base Excess Carboxyhemoglobin Methemoglobin O2 Delivery Device Oxygen Flow Rate Vent Mode Vent Rate Mechanical Rate PEEP Pressure Support Vent Sodium Cancelled Potassium Cancelled Chloride Cancelled Carbon Dioxide Cancelled Anion Gap Cancelled BUN Cancelled Creatinine Cancelled Est GFR (CKD-EPI)AfAm Cancelled Est GFR (CKD-EPI)NonAf Cancelled POC Glucometer Random Glucose Cancelled Lactic Acid Calcium Cancelled Total Bilirubin Cancelled AST Cancelled ALT Cancelled Alkaline Phosphatase Cancelled Ammonia Creatine Kinase Troponin I Total Protein Cancelled Albumin Cancelled Beta-Hydroxybutyrate Urine Color Urine Appearance Urine pH Ur Specific [place] Urine Protein Urine Glucose (UA) Urine Ketones Urine Blood Urine Nitrite Urine Bilirubin Urine Urobilinogen Ur Leukocyte Esterase 12/14/19 12/14/19 12/14/19 02:30 02:41 03:23 WBC RBC Hgb Hct MCV MCH MCHC RDW Plt Count MPV Absolute Neuts (auto) Neutrophils % Lymphocytes % Monocytes % Eosinophils % Basophils % Nucleated RBC % Hypochromia Platelet Estimate Platelet Comment Polychromasia Poikilocytosis Microcytosis Spherocytes PT with INR INR PTT (Actin FS) Anticoagulation Therapy Puncture Site Patient Temperature ABG pH ABG pCO2 at Pt Temp ABG pO2 at Pt Temp ABG HCO3 ABG O2 Sat (Measured) ABG O2 Content ABG Base Excess Jeramy Test VBG pH 7.27 L POC VBG pCO2 61.7 H POC VBG pO2 < 49 H VBG HCO3 27.7 VBG O2 Sat ([place]) 40.8 L VBG Base Excess 0.3 Carboxyhemoglobin Methemoglobin O2 Delivery Device Oxygen Flow Rate Vent Mode Vent Rate Mechanical Rate PEEP Pressure Support Vent Sodium Potassium Chloride Carbon Dioxide Anion Gap BUN Creatinine Est GFR (CKD-EPI)AfAm Est GFR (CKD-EPI)NonAf POC Glucometer 172 Random Glucose Lactic Acid Calcium Total Bilirubin AST ALT Alkaline Phosphatase Ammonia Creatine Kinase Troponin I Total Protein Albumin Beta-Hydroxybutyrate Urine Color Yellow Urine Appearance Clear Urine pH 6.5 Ur Specific [place] 1.016 Urine Protein Trace Urine Glucose (UA) Negative Urine Ketones Negative Urine Blood Negative Urine Nitrite Negative Urine Bilirubin Negative Urine Urobilinogen 0.2 Ur Leukocyte Esterase Negative 12/14/19 12/14/19 12/14/19 03:23 03:23 04:30 WBC RBC Hgb Hct MCV MCH MCHC RDW Plt Count MPV Absolute Neuts (auto) Neutrophils % Lymphocytes % Monocytes % Eosinophils % Basophils % Nucleated RBC % Hypochromia Platelet Estimate Platelet Comment Polychromasia Poikilocytosis Microcytosis Spherocytes PT with INR INR PTT (Actin FS) Anticoagulation Therapy Cancelled Puncture Site Cancelled Patient Temperature Cancelled ABG pH Cancelled ABG pCO2 at Pt Temp Cancelled ABG pO2 at Pt Temp Cancelled ABG HCO3 Cancelled ABG O2 Sat (Measured) Cancelled ABG O2 Content Cancelled ABG Base Excess Cancelled Jeramy Test Cancelled VBG pH POC VBG pCO2 POC VBG pO2 VBG HCO3 VBG O2 Sat ([place]) VBG Base Excess Carboxyhemoglobin 0.8 Methemoglobin < 1.0 O2 Delivery Device Cancelled Oxygen Flow Rate Cancelled Vent Mode Cancelled Vent Rate Cancelled Mechanical Rate Cancelled PEEP Cancelled Pressure Support Vent Cancelled Sodium Potassium Chloride Carbon Dioxide Anion Gap BUN Creatinine Est GFR (CKD-EPI)AfAm Est GFR (CKD-EPI)NonAf POC Glucometer Random Glucose Lactic Acid 1.5 Calcium Total Bilirubin AST ALT Alkaline Phosphatase Ammonia Creatine Kinase Troponin I Total Protein Albumin Beta-Hydroxybutyrate Urine Color Urine Appearance Urine pH Ur Specific [place] Urine Protein Urine Glucose (UA) Urine Ketones Urine Blood Urine Nitrite Urine Bilirubin Urine Urobilinogen Ur Leukocyte Esterase 12/14/19 12/14/19 12/14/19 04:41 05:24 05:54 WBC RBC Hgb Hct MCV MCH MCHC RDW Plt Count MPV Absolute Neuts (auto) Neutrophils % Lymphocytes % Monocytes % Eosinophils % Basophils % Nucleated RBC % Hypochromia Platelet Estimate Platelet Comment Polychromasia Poikilocytosis Microcytosis Spherocytes PT with INR INR PTT (Actin FS) Anticoagulation Therapy No Result Required. Puncture Site Left radial Patient Temperature ABG pH 7.35 ABG pCO2 at Pt Temp 47.9 H ABG pO2 at Pt Temp 92.8 ABG HCO3 25.5 ABG O2 Sat (Measured) 96.7 ABG O2 Content 18.7 ABG Base Excess -0.2 Jeramy Test Positive VBG pH POC VBG pCO2 POC VBG pO2 VBG HCO3 VBG O2 Sat ([place]) VBG Base Excess Carboxyhemoglobin 0.8 Methemoglobin 1.1 O2 Delivery Device No Result Required. Oxygen Flow Rate Room air Vent Mode No Result Required. Vent Rate No Result Required. Mechanical Rate No Result Required. PEEP Pressure Support Vent No Result Required. Sodium Potassium Chloride Carbon Dioxide Anion Gap BUN Creatinine Est GFR (CKD-EPI)AfAm Est GFR (CKD-EPI)NonAf POC Glucometer 190 Random Glucose Lactic Acid 1.8 Calcium Total Bilirubin AST ALT Alkaline Phosphatase Ammonia Creatine Kinase Troponin I Total Protein Albumin Beta-Hydroxybutyrate Urine Color Urine Appearance Urine pH Ur Specific [place] Urine Protein Urine Glucose (UA) Urine Ketones Urine Blood Urine Nitrite Urine Bilirubin Urine Urobilinogen Ur Leukocyte Esterase 12/14/19 12/14/19 12/14/19 06:54 11:07 11:31 WBC RBC Hgb Hct MCV MCH MCHC RDW Plt Count MPV Absolute Neuts (auto) Neutrophils % Lymphocytes % Monocytes % Eosinophils % Basophils % Nucleated RBC % Hypochromia Platelet Estimate Platelet Comment Polychromasia Poikilocytosis Microcytosis Spherocytes PT with INR INR PTT (Actin FS) Anticoagulation Therapy Puncture Site Patient Temperature ABG pH ABG pCO2 at Pt Temp ABG pO2 at Pt Temp ABG HCO3 ABG O2 Sat (Measured) ABG O2 Content ABG Base Excess Jeramy Test VBG pH POC VBG pCO2 POC VBG pO2 VBG HCO3 VBG O2 Sat ([place]) VBG Base Excess Carboxyhemoglobin Methemoglobin O2 Delivery Device Oxygen Flow Rate Vent Mode Vent Rate Mechanical Rate PEEP Pressure Support Vent Sodium Potassium Chloride Carbon Dioxide Anion Gap BUN Creatinine Est GFR (CKD-EPI)AfAm Est GFR (CKD-EPI)NonAf POC Glucometer 158 219 Random Glucose Lactic Acid Calcium Total Bilirubin AST ALT Alkaline Phosphatase Ammonia 15.90 Creatine Kinase Troponin I Total Protein Albumin Beta-Hydroxybutyrate Urine Color Urine Appearance Urine pH Ur Specific [place] Urine Protein Urine Glucose (UA) Urine Ketones Urine Blood Urine Nitrite Urine Bilirubin Urine Urobilinogen Ur Leukocyte Esterase 12/14/19 16:13 WBC RBC Hgb Hct MCV MCH MCHC RDW Plt Count MPV Absolute Neuts (auto) Neutrophils % Lymphocytes % Monocytes % Eosinophils % Basophils % Nucleated RBC % Hypochromia Platelet Estimate Platelet Comment Polychromasia Poikilocytosis Microcytosis Spherocytes PT with INR INR PTT (Actin FS) Anticoagulation Therapy Puncture Site Patient Temperature ABG pH ABG pCO2 at Pt Temp ABG pO2 at Pt Temp ABG HCO3 ABG O2 Sat (Measured) ABG O2 Content ABG Base Excess Jeramy Test VBG pH POC VBG pCO2 POC VBG pO2 VBG HCO3 VBG O2 Sat ([place]) VBG Base Excess Carboxyhemoglobin Methemoglobin O2 Delivery Device Oxygen Flow Rate Vent Mode Vent Rate Mechanical Rate PEEP Pressure Support Vent Sodium Potassium Chloride Carbon Dioxide Anion Gap BUN Creatinine Est GFR (CKD-EPI)AfAm Est GFR (CKD-EPI)NonAf POC Glucometer 246 Random Glucose Lactic Acid Calcium Total Bilirubin AST ALT Alkaline Phosphatase Ammonia Creatine Kinase Troponin I Total Protein Albumin Beta-Hydroxybutyrate Urine Color Urine Appearance Urine pH Ur Specific [place] Urine Protein Urine Glucose (UA) Urine Ketones Urine Blood Urine Nitrite Urine Bilirubin Urine Urobilinogen Ur Leukocyte Esterase plan: bgm qid novolog scale diet nutrition levemir q am 18 units titrate to am only long acting novolog actid
[2019-12-15] MEDS ORDERED: INSULIN (NOVOLOG) ASPART 100 UNITS/ML 10ML VIAL ONE ×3 (06:06→17:22)
[2019-12-15] MEDS: INSULIN (LEVEMIR) 100 UNITS/ML UNITS SQ SCH (06:11)
[2019-12-15] MEDS: INSULIN SLIDING SCALE (NOVOLOG) 1 VIAL SQ SCH ×3 (06:11→17:15)
[2019-12-15] MEDS: DEXTROSE 5%-WATER - 1,000 ML IV SCH (06:11)
[2019-12-15] MEDS ORDERED: INSULIN SLIDING SCALE (NOVOLOG) 1 VIAL SQ SCH (07:00)
[2019-12-15] MEDS: SEVELAMER CARBONATE 800 MG TAB (FP) PO SCH ×3 (08:00→17:15)
[2019-12-15 09:09] LABS: BASO % 0.6 % (0-2.0); EOS % 4.5 % (0-4.5); HEMATOCRIT 32.4 % (32.4-45.2); HEMOGLOBIN 10.3 GM/dL (10.7-15.3); LYMPH % 39.3 % (8-40); MCH 22.1 pg (25.7-33.7); MCHC 31.8 g/dl (32.0-36.0); MEAN CELL VOLUME 69.5 fl (80-96); MONO % 6.7 % (3.8-10.2); NEUT % 48.9 % (42.8-82.8); PLATELET COUNT 188 K/MM3 (134-434); RBC 4.66 M/mm3 (3.60-5.2); RDW 16.3 % (11.6-15.6); WHITE BLOOD COUNT 6.2 K/mm3 (4.0-10.0)
[2019-12-15 09:34] LABS: CALCIUM 8.9 mg/dL (8.5-10.1); POTASSIUM 5.2 mmol/L (3.5-5.1)
--- NOTE | 2019-12-15 09:51 | PN ---
Progress Note, Physician History of Present Illness: pt seen/ examined chart reviewed awake/ comfortable bgm -- high 300s Endo consult noted-- Levemir adjusted - Current Medication List Current Medications: Active Medications Albuterol/Ipratropium (Duoneb -) 1 amp NEB RTID PRN PRN Reason: ASTHMA Allopurinol (Zyloprim -) 100 mg PO DAILY [facility] Last Admin: 12/14/19 11:34 Dose: 100 mg Amlodipine Besylate (Norvasc -) 5 mg PO DAILY [facility] Last Admin: 12/14/19 11:33 Dose: 5 mg Aspirin (Ecotrin -) 81 mg PO DAILY [facility] Last Admin: 12/14/19 11:34 Dose: 81 mg Atorvastatin Calcium (Lipitor -) 10 mg PO HS [facility] Last Admin: 12/14/19 21:29 Dose: 10 mg Carvedilol (Coreg -) 6.25 mg PO BID [facility] Last Admin: 12/14/19 21:29 Dose: 6.25 mg Clopidogrel Bisulfate (Plavix -) 75 mg PO DAILY [facility] Last Admin: 12/14/19 11:34 Dose: 75 mg Gabapentin (Neurontin -) 300 mg PO BID [facility] Last Admin: 12/14/19 21:29 Dose: 300 mg Dextrose (D5w -) 1,000 mls @ 30 mls/hr IV ASDIR [facility] Last Admin: 12/15/19 06:11 Dose: Not Given Insulin Aspart (Novolog Vial Sliding Scale -) 1 vial SQ TIDAC [facility]; Protocol Last Admin: 12/15/19 06:11 Dose: 3 units Insulin Detemir (Levemir Vial) 18 units SQ AM [facility] Last Admin: 12/15/19 06:11 Dose: 18 units Pantoprazole Sodium (Protonix -) 20 mg PO DAILY [facility] Last Admin: 12/14/19 11:34 Dose: 20 mg Sevelamer Carbonate (Renvela -) 800 mg PO TIDCM [facility] Last Admin: 12/15/19 08:00 Dose: 800 mg Valsartan (Diovan -) 40 mg PO DAILY [facility] Last Admin: 12/14/19 17:06 Dose: 40 mg - Objective Vital Signs: Vital Signs Temperature 97.7 F 12/15/19 07:32 Pulse Rate 76 12/15/19 07:32 Respiratory Rate 18 12/15/19 07:32 Blood Pressure 144/70 12/15/19 07:32 O2 Sat by Pulse Oximetry (%) 98 12/14/19 21:00 Constitutional: Yes: No Distress, Calm Eyes: Yes: Conjunctiva Clear Neck: Yes: Supple Cardiovascular: Yes: Regular Rate and Rhythm Respiratory: Yes: CTA Bilaterally Gastrointestinal: Yes: Soft, Abdomen, Obese Edema: LLE: 1+, RLE: 1+ Neurological: Yes: Alert Psychiatric: Yes: Alert Labs: CBC, BMP 12/15/19 08:00 12/15/19 08:00 INR, PTT INR 0.96 (0.83-1.09) 12/14/19 02:30 Problem List - Problems (1) Hypoglycemia Code(s): E16.2 - HYPOGLYCEMIA, UNSPECIFIED (2) Biventricular ICD (implantable cardioverter-defibrillator) in place Code(s): Z95.810 - PRESENCE OF AUTOMATIC (IMPLANTABLE) CARDIAC DEFIBRILLATOR (3) CAD (coronary artery disease) Code(s): I25.10 - ATHSCL HEART DISEASE OF [place] CORONARY ARTERY W/O ANG PCTRS Qualifiers: Coronary Disease-Associated Artery/Lesion type: unspecified vessel or lesion type Associated angina: without angina (4) CKD (chronic kidney disease) Code(s): N18.9 - CHRONIC KIDNEY DISEASE, UNSPECIFIED (5) HTN (hypertension) Code(s): I10 - ESSENTIAL (PRIMARY) HYPERTENSION Qualifiers: Hypertension type: essential hypertension Qualified Code(s): I10 - Essential (primary) hypertension Assessment/Plan Clinically stable MONITOR BGM TODAY Will consult Cardio also pacemaker check ? will follow d/w Rn also Daily oob - chair
--- NOTE | 2019-12-15 10:10 | CON.CARD ---
Consult Consult Specialty:: Cardiology Referred by:: Iesha Combs MD Reason for Consultation:: Lethargy, hypoglycemia - History of Present Illness Chief Complaint: Hypoglycemia and lethargy History of Present Illness: Patient is a 74 year old female ([place] descent) with underlying history of CAD s/p PCI/stent, HTN, T2DM, hypercholesterolemia, systolic CHF post BiV ICD ( [employer]), syncope, anemia, chronic venous insufficiency, CKD and GERD who presented to [facility] for hypoglycemia, lethargy. Per patient's caregiver the patient had a BGM of 198 at 6pm, she was given her Levemir and had a snack before bedtime. This morning the caregiver was told that the patient was moaning and confused, her BGM was 38, per the caregiver she was given sugar water. EMS was called on their arrival BGM was 48. Glucagon 2gm was given en route. BGM on arrival to ER 150. Patient is alert and oriented making good eye contact and back tp baseline mental status. She speaks Creole, the caregiver translated. Patient reports R- hip pain which is chronic per caregiver. Patient denies fever, chills, cough, SOB, CP, palpitations, near or true syncope, orthopnea, PND, AP, N/V/D, constipation, dysuria. - History Source History Provided By: Medical Record Limitations to Obtaining History: Poor Historian - Past Medical History Cardio/Vascular: Yes: CAD (PCI/STENT), CHF, HTN, Hyperlipdemia, Other (CNA PCT-D) Pulmonary: Yes: COPD Gastrointestinal: Yes: GERD, Other (anemia, IRON DEF) Renal/: Yes: Renal Inusuff Musculoskeletal: Yes: Osteoarthritis Rheumatology: Yes: Gout Endocrine: Yes: Diabetes Mellitus - Past Surgical History Past Surgical History: Yes: AICD, Stent - Alcohol/Substance Use Hx Alcohol Use: No History of Substance Use: reports: None - Smoking History Smoking history: Never smoked Have you smoked in the past 12 months: No Aproximately how many cigarettes per day: 0 - Social History 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 [employer]ATIONS [employer]GER) History of Recent Travel: No Home Medications - Allergies Allergies/Adverse Reactions: Allergies Allergy/AdvReac Type Severity Reaction Status Date / Time No Known Allergies Allergy Verified 10/09/19 06:58 - Home Medications Home Medications: Ambulatory Orders RX: Allopurinol [Zyloprim -] 100 mg PO DAILY 02/24/16 RX: Cholecalciferol (Vitamin D3) [Vitamin D3] 1,000 unit PO DAILY 05/24/18 RX: Furosemide [Lasix -] 40 mg PO DAILY 05/24/18 RX: Pravastatin Sodium 20 mg PO HS 05/24/18 RX: Aspirin Coated [Ecotrin -] 81 mg PO DAILY tablet.ec 01/30/19 RX: Amlodipine Besylate 5 mg PO DAILY 03/14/19 RX: Clopidogrel Bisulfate [Clopidogrel] 75 mg PO DAILY 03/14/19 RX: Valsartan [Diovan] 40 mg PO DAILY tablet 03/20/19 RX: Gabapentin [Neurontin -] 300 mg PO BID #60 capsule 03/28/19 RX: Lactobacillus Acidophilus [Bacid -] 1 tab PO DAILY #30 tab 03/28/19 RX: Carvedilol [Coreg -] 6.25 mg PO BID #60 tablet 05/31/19 RX: Insulin Sliding Scale [Novolog Vial Sliding Scale -] 1 vial SQ TIDAC #30 units 05/31/19 RX: Omeprazole 1 tab PO DAILY 10/09/19 RX: Sevelamer Carbonate [Renvela -] 1 tab PO AC 10/09/19 Blood Sugar Diagnostic [Test Strips] 1 each MC TID 30 Days #90 strip 10/15/19 RX: Acetaminophen [Tylenol .Regular Strength -] 650 mg PO Q4H PRN tablet RX: Albuterol 2.5/Ipratropium 0.5 [Duoneb -] 1 amp NEB RTID PRN #90 amp RX: Insulin (Levemir) [Levemir Vial] 24 units SQ BID@0700,2200 units 10/15/19 RX: Melatonin 5 mg PO HS PRN tab 10/15/19 Review of Systems - Review of Systems Constitutional: reports: Lethargy Neurological: reports: Confusion Vital Signs: Vital Signs Temperature 97.7 F 12/15/19 07:32 Pulse Rate 76 12/15/19 07:32 Respiratory Rate 18 12/15/19 07:32 Blood Pressure 144/70 12/15/19 07:32 O2 Sat by Pulse Oximetry (%) 98 12/14/19 21:00 Constitutional: Yes: No Distress, Calm Neck: Yes: Supple Respiratory: Yes: Regular, CTA Bilaterally Gastrointestinal: Yes: Normal Bowel Sounds, Soft Cardiovascular: Yes: Regular Rate and Rhythm JVD: No Carotid Bruit: No Heart Sounds: Yes: S1, S2 Murmur: Yes: Systolic Murmur, Grade 1 Edema: No - Other Data Labs, Other Data: CBC, BMP 12/15/19 08:00 12/15/19 08:00 INR, PTT INR 0.96 (0.83-1.09) 12/14/19 02:30 V-paced @ 74 Echo: Report Reviewed Ejection Fraction %: LVEF < 40 % Imaging - Results Chest X-ray: Report Reviewed Cat Scan: Report Reviewed (HCT No acute changes) Problem List - Problems (1) Altered mental state Code(s): R41.82 - ALTERED MENTAL STATUS, UNSPECIFIED Qualifiers: Altered mental status type: delirium Qualified Code(s): R41.0 - Disorientation, unspecified (2) Hypoglycemia Code(s): E16.2 - HYPOGLYCEMIA, UNSPECIFIED (3) Biventricular ICD (implantable cardioverter-defibrillator) in place Code(s): Z95.810 - PRESENCE OF AUTOMATIC (IMPLANTABLE) CARDIAC DEFIBRILLATOR (4) CAD (coronary artery disease) Code(s): I25.10 - ATHSCL HEART DISEASE OF [place] CORONARY ARTERY W/O ANG PCTRS Qualifiers: Coronary Disease-Associated Artery/Lesion type: unspecified vessel or lesion type Associated angina: without angina (5) CKD (chronic kidney disease) Code(s): N18.9 - CHRONIC KIDNEY DISEASE, UNSPECIFIED Qualifiers: Chronic kidney disease stage: stage 3 (moderate) Qualified Code(s): N18.3 - Chronic kidney disease, stage 3 (moderate) (6) Diastolic CHF Code(s): I50.30 - UNSPECIFIED DIASTOLIC (CONGESTIVE) HEART FAILURE Qualifiers: Heart failure chronicity: chronic Qualified Code(s): I50.32 - Chronic diastolic (congestive) heart failure (7) HTN (hypertension) Code(s): I10 - ESSENTIAL (PRIMARY) HYPERTENSION Qualifiers: Hypertension type: essential hypertension Qualified Code(s): I10 - Essential (primary) hypertension (8) History of percutaneous coronary intervention Code(s): Z98.89 - OTHER SPECIFIED POSTPROCEDURAL STATES * DO NOT USE * (9) Hyperlipidemia Code(s): E78.5 - HYPERLIPIDEMIA, UNSPECIFIED Qualifiers: Hyperlipidemia type: pure hypercholesterolemia Qualified Code(s): E78.00 - Pure hypercholesterolemia, unspecified; E78.0 - Pure hypercholesterolemia (10) IDDM (insulin dependent diabetes mellitus) Code(s): E11.9 - TYPE 2 DIABETES MELLITUS WITHOUT COMPLICATIONS; Z79.4 - DOCUMENTATION NURSE (CURRENT) USE OF INSULIN Assessment/Plan 1. Altered mental status referable to hypoglycemia since resolved 2. LV systolic/diastolic dysfunction, chronic failure NYHA class 1-2 3. CAD s/p PCI/stent, angina pectoris 4. HTN 5. Hypercholesterolemia 6. T2DM 7. Post CNA PCT-D ([employer]) 8. History of syncope 9. Exogenous obesity 10. CKD PLAN: 1. Insulin adjusted per endocrine recs 2. Continue Carvedilol 6.25 bid, Amlodipine 5 qd and Valsartan 40 qd as tolerated 3. Continue Furosemide 40 PO qd and monitor renal function and electrolytes. Monitor daily weight and I/Os 4. Continue ASA 81 qd, Plavix 75 qd and Lipitor 10 qd 5. Thank you for consultative opportunity Eventually follow up in office with Dr. Mcgill ([facility]) [phone]. Pacemaker interrogation may be performed as outpatient on routine schedule.
[2019-12-15] MEDS: amLODIPine BESYLATE 5 MG TABLET (FP) PO SCH (10:34)
[2019-12-15] MEDS: GABAPENTIN 300 MG CAPSULE PO SCH ×2 (10:34→22:38)
[2019-12-15] MEDS: CARVEDILOL 6.25 MG TABLET (FP) PO SCH ×2 (10:34→22:39)
[2019-12-15] MEDS: CLOPIDOGREL BISULFATE 75 MG TABLET (FP) PO SCH (10:34)
[2019-12-15] MEDS: ALLOPURINOL 100 MG TABLET (FP) PO SCH (10:34)
[2019-12-15] MEDS: PANTOPRAZOLE 20 MG TABLET PO SCH (10:34)
[2019-12-15] MEDS: ASPIRIN COATED 81 MG TABLET.EC PO SCH (10:34)
[2019-12-15] MEDS: VALSARTAN 40 MG TABLET (FP) PO SCH (10:35)
[2019-12-15] MEDS: HEPARIN NA (PORCINE) 5,000 UNITS/ML 1ML VIAL SQ SCH ×2 (10:35→22:39)
[2019-12-15] MEDS: ATORVASTATIN CA 10 MG TABLET (FP) PO SCH (22:39)
[2019-12-16] MEDS: INSULIN (LEVEMIR) 100 UNITS/ML UNITS SQ SCH (06:06)
[2019-12-16] MEDS: INSULIN SLIDING SCALE (NOVOLOG) 1 VIAL SQ SCH ×2 (06:07→12:00)
[2019-12-16] MEDS: SEVELAMER CARBONATE 800 MG TAB (FP) PO SCH ×2 (08:31→11:59)
[2019-12-16] MEDS ORDERED: PT OWN MED DRAWER 7, Y5N ONE (09:08)
[2019-12-16] MEDS: amLODIPine BESYLATE 5 MG TABLET (FP) PO SCH (09:51)
[2019-12-16] MEDS: VALSARTAN 40 MG TABLET (FP) PO SCH (09:51)
[2019-12-16] MEDS: PANTOPRAZOLE 20 MG TABLET PO SCH (09:51)
[2019-12-16] MEDS: ALLOPURINOL 100 MG TABLET (FP) PO SCH (09:51)
[2019-12-16] MEDS: CARVEDILOL 6.25 MG TABLET (FP) PO SCH (09:51)
[2019-12-16] MEDS: GABAPENTIN 300 MG CAPSULE PO SCH (09:51)
[2019-12-16] MEDS: HEPARIN NA (PORCINE) 5,000 UNITS/ML 1ML VIAL SQ SCH (09:51)
[2019-12-16] MEDS: CLOPIDOGREL BISULFATE 75 MG TABLET (FP) PO SCH (09:51)
[2019-12-16] MEDS: ASPIRIN COATED 81 MG TABLET.EC PO SCH (09:52)
[2019-12-16] MEDS ORDERED: INSULIN (NOVOLOG) ASPART 100 UNITS/ML 10ML VIAL ONE (11:53)
--- NOTE | 2019-12-16 12:56 | DS ---
Physical Examination Vital Signs: Vital Signs Temperature 98.3 F 12/16/19 08:32 Pulse Rate 80 12/16/19 08:32 Respiratory Rate 18 12/16/19 08:32 Blood Pressure 123/69 12/16/19 08:32 O2 Sat by Pulse Oximetry (%) 96 12/15/19 21:00 Constitutional: Yes: No Distress, Calm Cardiovascular: Yes: Regular Rate and Rhythm Respiratory: Yes: Diminished Gastrointestinal: Yes: Normal Bowel Sounds, Soft, Abdomen, Obese. No: Tenderness Edema: No Labs: CBC, BMP 12/15/19 08:00 12/15/19 08:00 Discharge Summary Problems reviewed: Yes Reason For Visit: HYPOGLYCEMIA Current Active Problems Altered mental state (Acute) Hypoglycemia (Acute) Hospital Course: admitted for hypoglycemic episode She is not in distress She has family member to help with insulin She was seen by both cardiology and Endocrinology She is advised to follow up with Cardiology and Endocrinology Insulin adjusted for the daytime only stable for dc home Condition: Stable - Instructions Referrals: Silver Pedersen MD [Staff Physician] - Iesha Combs MD [Primary Care Provider] - Nima Mcgill MD [Staff Physician] - - Home Medications Comprehensive Discharge Medication List: Ambulatory Orders Allopurinol [Zyloprim -] 100 mg PO DAILY 02/24/16 Cholecalciferol (Vitamin D3) [Vitamin D3] 1,000 unit PO DAILY 05/24/18 Furosemide [Lasix -] 40 mg PO DAILY 05/24/18 Pravastatin Sodium 20 mg PO HS 05/24/18 Aspirin Coated [Ecotrin -] 81 mg PO DAILY tablet.ec 01/30/19 Amlodipine Besylate 5 mg PO DAILY 03/14/19 Clopidogrel Bisulfate [Clopidogrel] 75 mg PO DAILY 03/14/19 Valsartan [Diovan] 40 mg PO DAILY tablet 03/20/19 Gabapentin [Neurontin -] 300 mg PO BID #60 capsule 03/28/19 Lactobacillus Acidophilus [Bacid -] 1 tab PO DAILY #30 tab 03/28/19 Carvedilol [Coreg -] 6.25 mg PO BID #60 tablet 05/31/19 Insulin Sliding Scale [Novolog Vial Sliding Scale -] 1 vial SQ TIDAC #30 units 05/31/19 Omeprazole 1 tab PO DAILY 10/09/19 Sevelamer Carbonate [Renvela -] 1 tab PO AC 10/09/19 Acetaminophen [Tylenol .Regular Strength -] 650 mg PO Q4H PRN tablet 10/15/19 Albuterol 2.5/Ipratropium 0.5 [Duoneb -] 1 amp NEB RTID PRN #90 amp 10/15/19 Blood Sugar Diagnostic [Test Strips] 1 each MC TID 30 Days #90 strip 10/15/19 Melatonin 5 mg PO HS PRN tab 10/15/19 Insulin (Levemir) [Levemir Vial] 20 units SQ AM #0 units 12/16/19
[2019-12-16 14:47] VITALS: BP 117/78; PULSE 74; TEMP 97.9
== END 2019-12-16 16:40 | disposition home or self-care (01) | DRG 637 ==
LOC: JER 02:00 → JERBED 04:47 → J6S 10:02
PROVIDERS: ADMIT Internal Medicine; ATTEND Internal Medicine
DX: E11.649 Type 2 diabetes mellitus with hypoglycemia without coma (principal); G93.41 Metabolic encephalopathy; I50.32 Chronic diastolic (congestive) heart failure; J44.9 Chronic obstructive pulmonary disease, unspecified; I25.119 Atherosclerotic heart disease of native coronary artery with unspecified angina pectoris; E78.5 Hyperlipidemia, unspecified; D64.9 Anemia, unspecified; R41.82 Altered mental status, unspecified; M19.90 Unspecified osteoarthritis, unspecified site; Z95.810 Presence of automatic (implantable) cardiac defibrillator; E66.9 Obesity, unspecified; Z68.38 Body mass index [BMI] 38.0-38.9, adult; Z95.5 Presence of coronary angioplasty implant and graft; K21.9 Gastro-esophageal reflux disease without esophagitis; N18.3 Chronic kidney disease, stage 3 (moderate); I12.9 Hypertensive chronic kidney disease with stage 1 through stage 4 chronic kidney disease, or unspecified chronic kidney disease; E11.65 Type 2 diabetes mellitus with hyperglycemia; E11.40 Type 2 diabetes mellitus with diabetic neuropathy, unspecified
CPT/HCPCS: 36415; 36600; 70450-TC; 80048; 80053; 81003; 82010; 82140; 82375; 82550; 82803; 82962; 83036; 83050; 83605; 84484; 85025; 85610; 85730; 87086; 93005; 93010; 99284-25; J1644

== ENCOUNTER 2021-05-17 10:24 | Inpatient (IN) | payer OTHER ==
[2021-05-17] MEDS ORDERED: SODIUM CHLORIDE 1,000 ML IV ONE (11:53)
[2021-05-17] MEDS ORDERED: ONDANSETRON 4 MG/2 ML VIAL IVPB ONE (11:53)
[2021-05-17] MEDS ORDERED: ONDANSETRON 4 MG/2 ML VIAL ONE (13:21)
[2021-05-17 13:38] LABS: BASO % 0.8 % (0-2.0); EOS % 3.2 % (0-4.5); HEMATOCRIT 31.6 % (32.4-45.2); HEMOGLOBIN 9.9 GM/dL (10.7-15.3); MCHC 31.3 g/dl (32.0-36.0); MEAN CELL VOLUME 66.9 fl (80-96); MEAN PLT VOLUME 10.1 fl (7.5-11.1); MONO % 9.5 % (3.8-10.2); NEUT % 75.5 % (42.8-82.8); PLATELET COUNT 192 10^3/uL (134-434); RBC 4.72 M/mm3 (3.60-5.2); RDW 14.2 % (11.6-15.6); WHITE BLOOD COUNT 14.5 K/mm3 (4.0-10.0)
[2021-05-17 13:57] LABS: CHLORIDE 94 mmol/L (98-107); SODIUM 134 mmol/L (136-145)
[2021-05-17 13:59] LABS: ANION GAP 6 MMOL/L (8-16); BLOOD UREA NITROGEN 50.3 mg/dL (7-18); CALCIUM 8.7 mg/dL (8.5-10.1); CO2 33 mmol/L (21-32); GLUCOSE,RANDOM 280 mg/dL (74-106); LIPASE 47 U/L (73-393)
[2021-05-17 14:02] LABS: SGPT/ALT 15 U/L (13-61)
[2021-05-17 14:03] LABS: CREATININE 2.8 mg/dL (0.55-1.3); SGOT/AST 15 U/L (15-37)
[2021-05-17 14:04] LABS: BILIRUBIN,TOTAL 0.4 mg/dL (0.2-1); TOT PROT 6.8 g/dl (6.4-8.2)
[2021-05-17 14:05] LABS: ALK PHOS 156 U/L (45-117)
[2021-05-17 16:55] LABS: PH,URINE 5.5 (5.0-8.0); URINE APPEARANCE CLEAR; URINE BILIRUBIN NEGATIVE (NEGATIVE); URINE COLOR YELLOW; URINE GLUCOSE (UA) 1+ (NEGATIVE); URINE KETONE NEGATIVE (NEGATIVE); URINE LEUK ESTERASE NEGATIVE (NEGATIVE); URINE NITRITE NEGATIVE (NEGATIVE); URINE PROTEIN NEGATIVE (NEGATIVE); URINE UROBILINOGEN 0.2 mg/dL (0.2-1.0)
[2021-05-17] MEDS ORDERED: PIPERACILLIN/TAZOB 3.375 GM 3.375 GM in DEXTROSE 5%-WATER - 50 ML IVPB ONE (18:59)
[2021-05-17] MEDS ORDERED: VANCOMYCIN 1 GM in D5W (PRE-DOCKED) 1,000 MG/250 ML IVPB ONE (19:04)
[2021-05-17] MEDS ORDERED: VANCOMYCIN 1 GRAM (PRE-DOCKED) 1,000 MG/250 ML BAG IVPB ONE (19:28)
[2021-05-17] MEDS ORDERED: PIPERACILLIN/TAZOB 3.375 GM 3.375 GM/50 ML BAG IVPB ONE (19:29)
[2021-05-17] MEDS ORDERED: GABAPENTIN 100 MG CAPSULE ONE (22:52)
[2021-05-17] MEDS: GABAPENTIN 300 MG CAPSULE PO SCH (23:03)
[2021-05-17] MEDS: DEXTROSE 5%-NORMAL SALINE 1,000 ML IV SCH (23:03)
[2021-05-17] MEDS: INSULIN SLIDING SCALE (NOVOLOG) 1 VIAL SQ SCH (23:04)
[2021-05-18] MEDS ORDERED: PIPERACILLIN/TAZOBACTAM 2.25 GM VIAL IVPB ONE ×2 (02:10→09:04)
[2021-05-18] MEDS ORDERED: DEXTROSE 5%-WATER - 50 ML IVPB ONE ×2 (02:10→09:04)
[2021-05-18] MEDS: PIPERACILLIN/TAZOB 2.25 GM 2.25 GM in DEXTROSE 5%-WATER - 50 ML IVPB SCH ×3 (02:14→11:17)
[2021-05-18] MEDS: INSULIN SLIDING SCALE (NOVOLOG) 1 VIAL SQ SCH ×6 (02:23→22:31)
[2021-05-18 07:47] LABS: INR 1.14 (0.83-1.09); PROTHROMBIN TIME (PATIENT) 13.7 SEC (9.7-13.0)
[2021-05-18 07:49] LABS: ACTIVATED PTT 26.7 SECONDS (25.2-36.5)
[2021-05-18 07:53] LABS: ALBUMIN 2.7 g/dl (3.4-5.0); CALCIUM 8.2 mg/dL (8.5-10.1); MAGNESIUM 1.7 mg/dL (1.8-2.4)
[2021-05-18 07:57] LABS: BASO % 0.5 % (0-2.0); CREATININE 2.7 mg/dL (0.55-1.3); EOS % 3.8 % (0-4.5); HEMATOCRIT 33.2 % (32.4-45.2); HEMOGLOBIN 10.4 GM/dL (10.7-15.3); LYMPH % 11.9 % (8-40); MCHC 31.2 g/dl (32.0-36.0); MEAN CELL VOLUME 67.2 fl (80-96); MEAN PLT VOLUME 10.3 fl (7.5-11.1); MONO % 7.8 % (3.8-10.2); PLATELET COUNT 169 10^3/uL (134-434); RBC 4.95 M/mm3 (3.60-5.2); RDW 14.6 % (11.6-15.6); WHITE BLOOD COUNT 12.5 K/mm3 (4.0-10.0)
[2021-05-18 07:58] LABS: BILIRUBIN,TOTAL 0.6 mg/dL (0.2-1); TOT PROT 6.3 g/dl (6.4-8.2)
[2021-05-18] MEDS: LACTOBACILLUS ACIDOPHILUS 1 TABLET PO SCH (09:10)
[2021-05-18] MEDS: PANTOPRAZOLE 20 MG TABLET PO SCH (09:10)
[2021-05-18] MEDS: GABAPENTIN 300 MG CAPSULE PO SCH ×2 (09:10→22:29)
[2021-05-18] MEDS: ALLOPURINOL 100 MG TABLET (FP) PO SCH (09:10)
[2021-05-18] MEDS: amLODIPine BESYLATE 5 MG TABLET (FP) PO SCH (09:10)
[2021-05-18] MEDS ORDERED: VALSARTAN 40 MG TABLET PO SCH (10:00)
[2021-05-18] MEDS ORDERED: FUROSEMIDE 20 MG TABLET (FP) PO SCH (10:00)
[2021-05-18] MEDS: CARVEDILOL 6.25 MG TABLET (FP) PO SCH ×2 (10:51→22:29)
[2021-05-18] MEDS: SEVELAMER CARBONATE 800 MG TAB (FP) PO SCH ×2 (12:23→17:51)
[2021-05-18] MEDS: ENOXAPARIN NA (PORCINE) 30 MG/0.3 ML DISP.SYRIN SQ SCH (14:21)
[2021-05-18] MEDS: DEXTROSE 5%-NORMAL SALINE 1,000 ML IV SCH (18:36)
[2021-05-18] MEDS: ATORVASTATIN CA 10 MG TABLET (FP) PO SCH (22:29)
[2021-05-18] MEDS: ACETAMINOPHEN 325 MG TABLET (FP) PO PRN (22:29)
[2021-05-18] MEDS: INSULIN (LEVEMIR) 100 UNITS/ML UNITS SQ SCH (22:30)
[2021-05-19] MEDS: INSULIN SLIDING SCALE (NOVOLOG) 1 VIAL SQ SCH ×6 (01:26→21:00)
[2021-05-19 09:45] LABS: BASO % 0.4 % (0-2.0); EOS % 3.3 % (0-4.5); HEMATOCRIT 28.6 % (32.4-45.2); HEMOGLOBIN 8.8 GM/dL (10.7-15.3); LYMPH % 11.4 % (8-40); MCH 20.7 pg (25.7-33.7); MCHC 30.7 g/dl (32.0-36.0); MEAN CELL VOLUME 67.4 fl (80-96); MONO % 10.9 % (3.8-10.2); PLATELET COUNT 189 10^3/uL (134-434); RBC 4.25 M/mm3 (3.60-5.2); WHITE BLOOD COUNT 11.8 K/mm3 (4.0-10.0)
[2021-05-19 10:14] LABS: ALBUMIN 2.5 g/dl (3.4-5.0); CALCIUM 8.3 mg/dL (8.5-10.1)
[2021-05-19 10:17] LABS: CREATININE 3.1 mg/dL (0.55-1.3)
[2021-05-19 10:19] LABS: BILIRUBIN,TOTAL 0.6 mg/dL (0.2-1); TOT PROT 5.9 g/dl (6.4-8.2)
[2021-05-19] MEDS: CARVEDILOL 6.25 MG TABLET (FP) PO SCH ×2 (12:27→21:00)
[2021-05-19] MEDS: LACTOBACILLUS ACIDOPHILUS 1 TABLET PO SCH (12:27)
[2021-05-19] MEDS: PANTOPRAZOLE 20 MG TABLET PO SCH (12:27)
[2021-05-19] MEDS: ENOXAPARIN NA (PORCINE) 30 MG/0.3 ML DISP.SYRIN SQ SCH (12:27)
[2021-05-19] MEDS: ALLOPURINOL 100 MG TABLET (FP) PO SCH (12:27)
[2021-05-19] MEDS: amLODIPine BESYLATE 5 MG TABLET (FP) PO SCH (12:27)
[2021-05-19] MEDS: GABAPENTIN 300 MG CAPSULE PO SCH ×2 (12:27→21:00)
[2021-05-19] MEDS: SEVELAMER CARBONATE 800 MG TAB (FP) PO SCH ×3 (12:28→17:33)
[2021-05-19] MEDS: DEXTROSE 5%-NORMAL SALINE 1,000 ML IV SCH (16:21)
[2021-05-19] MEDS: ATORVASTATIN CA 10 MG TABLET (FP) PO SCH (21:00)
[2021-05-19] MEDS: INSULIN (LEVEMIR) 100 UNITS/ML UNITS SQ SCH (21:00)
[2021-05-20] MEDS: INSULIN SLIDING SCALE (NOVOLOG) 1 VIAL SQ SCH ×6 (01:26→21:16)
[2021-05-20] MEDS: DEXTROSE 5%-NORMAL SALINE 1,000 ML IV SCH ×2 (06:22→09:37)
[2021-05-20] MEDS ORDERED: INSULIN (NOVOLOG) ASPART 100 UNITS/ML 10ML VIAL ONE ×2 (07:34→09:52)
[2021-05-20] MEDS: amLODIPine BESYLATE 5 MG TABLET (FP) PO SCH ×2 (08:02→09:37)
[2021-05-20] MEDS: SEVELAMER CARBONATE 800 MG TAB (FP) PO SCH ×3 (08:03→17:02)
[2021-05-20] MEDS: CARVEDILOL 6.25 MG TABLET (FP) PO SCH ×3 (08:03→21:15)
[2021-05-20] MEDS: PANTOPRAZOLE 20 MG TABLET PO SCH (09:37)
[2021-05-20] MEDS: GABAPENTIN 300 MG CAPSULE PO SCH ×2 (09:37→21:15)
[2021-05-20] MEDS: ALLOPURINOL 100 MG TABLET (FP) PO SCH (09:37)
[2021-05-20] MEDS: LACTOBACILLUS ACIDOPHILUS 1 TABLET PO SCH (09:37)
[2021-05-20] MEDS ORDERED: fentaNYL CITRATE 250 MCG/5 ML VIAL ONE (14:27)
[2021-05-20] MEDS ORDERED: ROCURONIUM BROMIDE 50 MG/5 ML SYRINGE ONE (14:27)
[2021-05-20] MEDS: INSULIN (LEVEMIR) 100 UNITS/ML UNITS SQ SCH (21:15)
[2021-05-20] MEDS: ATORVASTATIN CA 10 MG TABLET (FP) PO SCH (21:15)
[2021-05-21] MEDS: INSULIN SLIDING SCALE (NOVOLOG) 1 VIAL SQ SCH ×7 (02:47→21:08)
[2021-05-21] MEDS: DEXTROSE 5%-NORMAL SALINE 1,000 ML IV SCH ×4 (05:14→23:58)
[2021-05-21] MEDS: PANTOPRAZOLE 20 MG TABLET PO SCH (09:17)
[2021-05-21] MEDS: LACTOBACILLUS ACIDOPHILUS 1 TABLET PO SCH (09:17)
[2021-05-21] MEDS: ENOXAPARIN NA (PORCINE) 30 MG/0.3 ML DISP.SYRIN SQ SCH (09:17)
[2021-05-21] MEDS: GABAPENTIN 300 MG CAPSULE PO SCH ×2 (09:17→21:07)
[2021-05-21] MEDS: CARVEDILOL 6.25 MG TABLET (FP) PO SCH ×2 (09:17→21:07)
[2021-05-21] MEDS: SEVELAMER CARBONATE 800 MG TAB (FP) PO SCH ×3 (09:17→17:33)
[2021-05-21] MEDS: ALLOPURINOL 100 MG TABLET (FP) PO SCH (09:17)
[2021-05-21] MEDS: amLODIPine BESYLATE 5 MG TABLET (FP) PO SCH (09:17)
[2021-05-21] MEDS ORDERED: INSULIN (LEVEMIR) 100 UNITS/ML UNITS SQ ONE (15:05)
[2021-05-21] MEDS: ATORVASTATIN CA 10 MG TABLET (FP) PO SCH (21:07)
[2021-05-21] MEDS: INSULIN (LEVEMIR) 100 UNITS/ML UNITS SQ SCH (21:07)
[2021-05-21] MEDS: ACETAMINOPHEN 325 MG TABLET (FP) PO PRN (21:07)
[2021-05-22] MEDS: INSULIN SLIDING SCALE (NOVOLOG) 1 VIAL SQ SCH ×6 (01:14→21:16)
[2021-05-22 08:02] LABS: BASO % 1.1 % (0-2.0); EOS % 2.6 % (0-4.5); HEMATOCRIT 27.9 % (32.4-45.2); HEMOGLOBIN 9.1 GM/dL (10.7-15.3); LYMPH % 12.5 % (8-40); MCH 22.3 pg (25.7-33.7); MCHC 32.7 g/dl (32.0-36.0); MEAN CELL VOLUME 68.2 fl (80-96); MEAN PLT VOLUME 8.9 fl (7.5-11.1); MONO % 9.7 % (3.8-10.2); NEUT % 74.1 % (42.8-82.8); PLATELET COUNT 353 10^3/uL (134-434); RDW 14.2 % (11.6-15.6)
[2021-05-22 08:16] LABS: WHITE BLOOD COUNT 19.6 K/mm3 (4.0-10.0)
[2021-05-22 08:32] LABS: CALCIUM 8.3 mg/dL (8.5-10.1)
[2021-05-22 08:33] LABS: ALBUMIN 2.5 g/dl (3.4-5.0); BLOOD UREA NITROGEN 48.1 mg/dL (7-18)
[2021-05-22 08:36] LABS: CREATININE 2.4 mg/dL (0.55-1.3)
[2021-05-22 08:37] LABS: BILIRUBIN,TOTAL 0.6 mg/dL (0.2-1); TOT PROT 6.6 g/dl (6.4-8.2)
[2021-05-22] MEDS: SEVELAMER CARBONATE 800 MG TAB (FP) PO SCH ×3 (08:40→17:37)
[2021-05-22] MEDS ORDERED: PT OWN MED DRAWER 7, Y5N ONE ×2 (10:27→11:19)
[2021-05-22] MEDS: CARVEDILOL 6.25 MG TABLET (FP) PO SCH ×2 (10:33→21:12)
[2021-05-22] MEDS: LACTOBACILLUS ACIDOPHILUS 1 TABLET PO SCH (10:33)
[2021-05-22] MEDS: ALLOPURINOL 100 MG TABLET (FP) PO SCH (10:34)
[2021-05-22] MEDS: PANTOPRAZOLE 20 MG TABLET PO SCH (10:34)
[2021-05-22] MEDS: GABAPENTIN 300 MG CAPSULE PO SCH ×2 (10:34→21:12)
[2021-05-22] MEDS: amLODIPine BESYLATE 5 MG TABLET (FP) PO SCH (10:34)
[2021-05-22] MEDS: DEXTROSE 5%-NORMAL SALINE 1,000 ML IV SCH (10:35)
[2021-05-22] MEDS: ENOXAPARIN NA (PORCINE) 30 MG/0.3 ML DISP.SYRIN SQ SCH (10:36)
[2021-05-22] MEDS: INSULIN (LEVEMIR) 100 UNITS/ML UNITS SQ SCH ×2 (11:26→21:17)
[2021-05-22] MEDS ORDERED: CLOPIDOGREL BISULFATE 75 MG TABLET (FP) PO SCH (12:45)
[2021-05-22] MEDS ORDERED: ASPIRIN COATED 81 MG TABLET.EC PO SCH (12:45)
[2021-05-22] MEDS: MELATONIN 5 MG TABLETS PO PRN (21:12)
[2021-05-22] MEDS: ATORVASTATIN CA 10 MG TABLET (FP) PO SCH (21:12)
[2021-05-23] MEDS: INSULIN SLIDING SCALE (NOVOLOG) 1 VIAL SQ SCH ×4 (06:35→21:18)
[2021-05-23 08:44] LABS: BASO % 0.7 % (0-2.0); EOS % 3.3 % (0-4.5); HEMATOCRIT 25.4 % (32.4-45.2); HEMOGLOBIN 8.1 GM/dL (10.7-15.3); LYMPH % 11.7 % (8-40); MCH 21.2 pg (25.7-33.7); MCHC 31.7 g/dl (32.0-36.0); MEAN CELL VOLUME 66.8 fl (80-96); MEAN PLT VOLUME 8.7 fl (7.5-11.1); NEUT % 75.3 % (42.8-82.8); PLATELET COUNT 275 10^3/uL (134-434); RBC 3.81 M/mm3 (3.60-5.2); RDW 14.2 % (11.6-15.6); WHITE BLOOD COUNT 11.4 K/mm3 (4.0-10.0)
[2021-05-23 09:09] LABS: ALBUMIN 2.3 g/dl (3.4-5.0); BLOOD UREA NITROGEN 53.3 mg/dL (7-18); CALCIUM 8.6 mg/dL (8.5-10.1)
[2021-05-23 09:13] LABS: CREATININE 2.5 mg/dL (0.55-1.3)
[2021-05-23 09:14] LABS: BILIRUBIN,TOTAL 0.3 mg/dL (0.2-1)
[2021-05-23] MEDS: ENOXAPARIN NA (PORCINE) 30 MG/0.3 ML DISP.SYRIN SQ SCH (09:32)
[2021-05-23] MEDS: PANTOPRAZOLE 20 MG TABLET PO SCH (09:33)
[2021-05-23] MEDS: amLODIPine BESYLATE 5 MG TABLET (FP) PO SCH (09:33)
[2021-05-23] MEDS: CARVEDILOL 6.25 MG TABLET (FP) PO SCH ×2 (09:33→21:13)
[2021-05-23] MEDS: ALLOPURINOL 100 MG TABLET (FP) PO SCH (09:33)
[2021-05-23] MEDS: GABAPENTIN 300 MG CAPSULE PO SCH ×2 (09:33→21:13)
[2021-05-23] MEDS: SEVELAMER CARBONATE 800 MG TAB (FP) PO SCH ×3 (09:33→17:22)
[2021-05-23] MEDS: LACTOBACILLUS ACIDOPHILUS 1 TABLET PO SCH (09:33)
[2021-05-23] MEDS: INSULIN (LEVEMIR) 100 UNITS/ML UNITS SQ SCH ×2 (09:36→21:19)
[2021-05-23] MEDS ORDERED: FUROSEMIDE 40 MG/4 ML INJECTABLE VIAL ONE (10:36)
[2021-05-23] MEDS ORDERED: FUROSEMIDE 40 MG/4 ML INJECTABLE VIAL IVPUSH ONE (11:00)
[2021-05-23] MEDS: ATORVASTATIN CA 10 MG TABLET (FP) PO SCH (21:13)
[2021-05-23] MEDS: MELATONIN 5 MG TABLETS PO PRN (21:13)
[2021-05-24] MEDS: INSULIN SLIDING SCALE (NOVOLOG) 1 VIAL SQ SCH ×4 (06:07→21:07)
[2021-05-24] MEDS: SEVELAMER CARBONATE 800 MG TAB (FP) PO SCH ×3 (08:20→16:35)
[2021-05-24] MEDS: LACTOBACILLUS ACIDOPHILUS 1 TABLET PO SCH (09:07)
[2021-05-24] MEDS: INSULIN (LEVEMIR) 100 UNITS/ML UNITS SQ SCH ×2 (09:07→21:06)
[2021-05-24] MEDS: ENOXAPARIN NA (PORCINE) 30 MG/0.3 ML DISP.SYRIN SQ SCH (09:07)
[2021-05-24] MEDS: GABAPENTIN 300 MG CAPSULE PO SCH ×2 (09:07→21:06)
[2021-05-24] MEDS: amLODIPine BESYLATE 5 MG TABLET (FP) PO SCH (09:08)
[2021-05-24] MEDS: CARVEDILOL 6.25 MG TABLET (FP) PO SCH ×2 (09:08→21:10)
[2021-05-24] MEDS: PANTOPRAZOLE 20 MG TABLET PO SCH (09:08)
[2021-05-24] MEDS: ALLOPURINOL 100 MG TABLET (FP) PO SCH (09:08)
[2021-05-24] MEDS ORDERED: INSULIN (LEVEMIR) 100 UNITS/ML UNITS SQ ONE (09:27)
[2021-05-24] MEDS: SENNOSIDES 8.6MG TABLET (FP) PO SCH (16:35)
[2021-05-24] MEDS: POLYETHYLENE GLYCOL (HEALTHYLAX) 3350 17 GM PACKET PO SCH ×2 (16:35→21:06)
[2021-05-24] MEDS ORDERED: PT OWN MED DRAWER 7, Y5N ONE (16:54)
[2021-05-24] MEDS: ACETAMINOPHEN 325 MG TABLET (FP) PO PRN (18:58)
[2021-05-24] MEDS: ALBUTEROL SO4 2.5/IPRATROPIUM 0.5 INH SOL 3 ML VIAL.NEB. NEB PRN (19:41)
[2021-05-24] MEDS: ATORVASTATIN CA 10 MG TABLET (FP) PO SCH (21:06)
[2021-05-25] MEDS: INSULIN SLIDING SCALE (NOVOLOG) 1 VIAL SQ SCH ×4 (06:18→21:56)
[2021-05-25 08:06] LABS: BASO % 0.5 % (0-2.0); EOS % 5.3 % (0-4.5); HEMOGLOBIN 8.9 GM/dL (10.7-15.3); LYMPH % 10.3 % (8-40); MCH 20.8 pg (25.7-33.7); MCHC 30.7 g/dl (32.0-36.0); MEAN PLT VOLUME 8.6 fl (7.5-11.1); MONO % 7.9 % (3.8-10.2); PLATELET COUNT 372 10^3/uL (134-434); RBC 4.27 M/mm3 (3.60-5.2); RDW 14.5 % (11.6-15.6)
[2021-05-25 08:29] LABS: ALBUMIN 2.6 g/dl (3.4-5.0); BLOOD UREA NITROGEN 66.2 mg/dL (7-18); CALCIUM 9.3 mg/dL (8.5-10.1)
[2021-05-25 08:33] LABS: CREATININE 2.7 mg/dL (0.55-1.3)
[2021-05-25 08:34] LABS: BILIRUBIN,TOTAL 0.3 mg/dL (0.2-1); TOT PROT 6.8 g/dl (6.4-8.2)
[2021-05-25] MEDS: amLODIPine BESYLATE 5 MG TABLET (FP) PO SCH (09:00)
[2021-05-25] MEDS: CARVEDILOL 6.25 MG TABLET (FP) PO SCH ×2 (09:00→21:53)
[2021-05-25] MEDS: POLYETHYLENE GLYCOL (HEALTHYLAX) 3350 17 GM PACKET PO SCH ×2 (09:00→21:53)
[2021-05-25] MEDS: SEVELAMER CARBONATE 800 MG TAB (FP) PO SCH ×3 (09:00→17:32)
[2021-05-25] MEDS: PANTOPRAZOLE 20 MG TABLET PO SCH (09:00)
[2021-05-25] MEDS: SENNOSIDES 8.6MG TABLET (FP) PO SCH (09:00)
[2021-05-25] MEDS: LACTOBACILLUS ACIDOPHILUS 1 TABLET PO SCH (09:00)
[2021-05-25] MEDS: ALLOPURINOL 100 MG TABLET (FP) PO SCH (09:00)
[2021-05-25] MEDS: GABAPENTIN 300 MG CAPSULE PO SCH ×2 (09:00→21:53)
[2021-05-25] MEDS: ENOXAPARIN NA (PORCINE) 30 MG/0.3 ML DISP.SYRIN SQ SCH (09:00)
[2021-05-25] MEDS: INSULIN (LEVEMIR) 100 UNITS/ML UNITS SQ SCH ×2 (09:20→21:55)
[2021-05-25] MEDS: ATORVASTATIN CA 10 MG TABLET (FP) PO SCH (21:53)
[2021-05-25] MEDS: ALBUTEROL SO4 2.5/IPRATROPIUM 0.5 INH SOL 3 ML VIAL.NEB. NEB PRN (22:04)
[2021-05-26] MEDS: ALBUTEROL SO4 2.5/IPRATROPIUM 0.5 INH SOL 3 ML VIAL.NEB. NEB PRN ×2 (06:08→19:54)
[2021-05-26 06:43] LABS: ARTERIAL BLD GAS O2 SATURATION 86.7 % (95-98); ARTERIAL BLOOD GAS BASE EXCESS 1.2 mmol/L (-2-2); ARTERIAL BLOOD GAS PO2 57.9 mmHg (80-100); ARTERIAL BLOOD GAS pH 7.301 (7.350-7.450)
[2021-05-26 06:45] LABS: ALLENS TEST POSITIVE
[2021-05-26] MEDS: INSULIN SLIDING SCALE (NOVOLOG) 1 VIAL SQ SCH ×4 (06:50→22:07)
[2021-05-26] MEDS: amLODIPine BESYLATE 5 MG TABLET (FP) PO SCH (09:49)
[2021-05-26] MEDS: SEVELAMER CARBONATE 800 MG TAB (FP) PO SCH ×3 (09:49→18:08)
[2021-05-26] MEDS: CARVEDILOL 6.25 MG TABLET (FP) PO SCH ×2 (09:50→21:01)
[2021-05-26] MEDS: PANTOPRAZOLE 20 MG TABLET PO SCH (09:50)
[2021-05-26] MEDS: SENNOSIDES 8.6MG TABLET (FP) PO SCH (09:50)
[2021-05-26] MEDS: GABAPENTIN 300 MG CAPSULE PO SCH ×2 (09:50→21:01)
[2021-05-26] MEDS: CLOPIDOGREL BISULFATE 75 MG TABLET (FP) PO SCH (09:50)
[2021-05-26] MEDS: LACTOBACILLUS ACIDOPHILUS 1 TABLET PO SCH (09:50)
[2021-05-26] MEDS: POLYETHYLENE GLYCOL (HEALTHYLAX) 3350 17 GM PACKET PO SCH ×2 (09:50→21:02)
[2021-05-26] MEDS: ASPIRIN 81 MG CHEWABLE TABLETS PO SCH (09:50)
[2021-05-26] MEDS: ALLOPURINOL 100 MG TABLET (FP) PO SCH (09:51)
[2021-05-26] MEDS: ENOXAPARIN NA (PORCINE) 30 MG/0.3 ML DISP.SYRIN SQ SCH (09:51)
[2021-05-26] MEDS ORDERED: FUROSEMIDE 40 MG/4 ML INJECTABLE VIAL IVPUSH SCH (10:00)
[2021-05-26] MEDS ORDERED: INSULIN (NOVOLOG) ASPART 100 UNITS/ML 10ML VIAL ONE ×2 (10:10→21:21)
[2021-05-26] MEDS ORDERED: INSULIN (LEVEMIR) 100 UNITS/ML UNITS SQ ONE (10:11)
[2021-05-26] MEDS: INSULIN (LEVEMIR) 100 UNITS/ML UNITS SQ SCH ×2 (10:41→21:01)
[2021-05-26 11:11] LABS: BASO % 0.6 % (0-2.0); EOS % 4.1 % (0-4.5); HEMOGLOBIN 8.4 GM/dL (10.7-15.3); LYMPH % 12.6 % (8-40); MCH 21.2 pg (25.7-33.7); MCHC 31.2 g/dl (32.0-36.0); MEAN CELL VOLUME 67.7 fl (80-96); MEAN PLT VOLUME 8.5 fl (7.5-11.1); NEUT % 73.7 % (42.8-82.8); PLATELET COUNT 356 10^3/uL (134-434); RBC 3.98 M/mm3 (3.60-5.2); RDW 14.3 % (11.6-15.6); WHITE BLOOD COUNT 9.6 K/mm3 (4.0-10.0)
[2021-05-26 11:36] LABS: BLOOD UREA NITROGEN 64.5 mg/dL (7-18); CALCIUM 9.3 mg/dL (8.5-10.1)
[2021-05-26 11:37] LABS: ALBUMIN 2.6 g/dl (3.4-5.0)
[2021-05-26 11:40] LABS: CREATININE 2.6 mg/dL (0.55-1.3)
[2021-05-26 11:41] LABS: BILIRUBIN,TOTAL 0.2 mg/dL (0.2-1); TOT PROT 6.5 g/dl (6.4-8.2)
[2021-05-26 12:35] LABS: ANISOCYTOSIS 1+; MACROCYTOSIS 0; PLATELET ESTIMATE NORMAL
[2021-05-26] MEDS: FUROSEMIDE 40 MG/4 ML INJECTABLE VIAL IVPUSH SCH (15:22)
[2021-05-26 17:10] LABS: CALCIUM 9.2 mg/dL (8.5-10.1)
[2021-05-26 17:11] LABS: BLOOD UREA NITROGEN 70.6 mg/dL (7-18)
[2021-05-26 17:14] LABS: CREATININE 2.5 mg/dL (0.55-1.3)
[2021-05-26] MEDS ORDERED: SODIUM POLYSTYRENE SULFONATE 15 GM/60 ML BOTTLE PO ONE (18:00)
[2021-05-26] MEDS: ATORVASTATIN CA 10 MG TABLET (FP) PO SCH (21:01)
[2021-05-27] MEDS: FUROSEMIDE 40 MG/4 ML INJECTABLE VIAL IVPUSH SCH ×2 (05:30→14:05)
[2021-05-27] MEDS: INSULIN SLIDING SCALE (NOVOLOG) 1 VIAL SQ SCH ×4 (06:08→21:30)
[2021-05-27 07:35] LABS: BASO % 0.8 % (0-2.0); EOS % 3.7 % (0-4.5); HEMATOCRIT 27.1 % (32.4-45.2); HEMOGLOBIN 8.6 GM/dL (10.7-15.3); LYMPH % 14.4 % (8-40); MCH 21.3 pg (25.7-33.7); MCHC 31.9 g/dl (32.0-36.0); MEAN CELL VOLUME 66.9 fl (80-96); MONO % 8.6 % (3.8-10.2); NEUT % 72.5 % (42.8-82.8); PLATELET COUNT 363 10^3/uL (134-434); RBC 4.05 M/mm3 (3.60-5.2); RDW 14.3 % (11.6-15.6); WHITE BLOOD COUNT 10.6 K/mm3 (4.0-10.0)
[2021-05-27 07:54] LABS: CALCIUM 9.5 mg/dL (8.5-10.1)
[2021-05-27 07:55] LABS: ALBUMIN 2.8 g/dl (3.4-5.0)
[2021-05-27 07:58] LABS: CREATININE 2.4 mg/dL (0.55-1.3)
[2021-05-27 07:59] LABS: BILIRUBIN,TOTAL 0.3 mg/dL (0.2-1); TOT PROT 7.1 g/dl (6.4-8.2)
[2021-05-27] MEDS: SEVELAMER CARBONATE 800 MG TAB (FP) PO SCH ×3 (08:48→17:37)
[2021-05-27] MEDS: SENNOSIDES 8.6MG TABLET (FP) PO SCH (10:11)
[2021-05-27] MEDS: ALLOPURINOL 100 MG TABLET (FP) PO SCH (10:12)
[2021-05-27] MEDS: ASPIRIN 81 MG CHEWABLE TABLETS PO SCH (10:12)
[2021-05-27] MEDS: LACTOBACILLUS ACIDOPHILUS 1 TABLET PO SCH (10:12)
[2021-05-27] MEDS: CARVEDILOL 6.25 MG TABLET (FP) PO SCH ×2 (10:13→21:26)
[2021-05-27] MEDS: POLYETHYLENE GLYCOL (HEALTHYLAX) 3350 17 GM PACKET PO SCH ×2 (10:13→21:26)
[2021-05-27] MEDS: PANTOPRAZOLE 20 MG TABLET PO SCH (10:13)
[2021-05-27] MEDS: INSULIN (LEVEMIR) 100 UNITS/ML UNITS SQ SCH ×2 (10:13→21:30)
[2021-05-27] MEDS: GABAPENTIN 300 MG CAPSULE PO SCH ×2 (10:13→21:26)
[2021-05-27] MEDS: amLODIPine BESYLATE 5 MG TABLET (FP) PO SCH (10:13)
[2021-05-27] MEDS: ENOXAPARIN NA (PORCINE) 30 MG/0.3 ML DISP.SYRIN SQ SCH (10:13)
[2021-05-27] MEDS: CLOPIDOGREL BISULFATE 75 MG TABLET (FP) PO SCH (10:13)
[2021-05-27] MEDS ORDERED: INSULIN (NOVOLOG) ASPART 100 UNITS/ML 10ML VIAL ONE (11:20)
[2021-05-27] MEDS ORDERED: INSULIN (LEVEMIR) 100 UNITS/ML UNITS SQ ONE (11:43)
[2021-05-27] MEDS: ATORVASTATIN CA 10 MG TABLET (FP) PO SCH (21:26)
[2021-05-28] MEDS: FUROSEMIDE 40 MG/4 ML INJECTABLE VIAL IVPUSH SCH ×2 (05:32→13:32)
[2021-05-28] MEDS: INSULIN SLIDING SCALE (NOVOLOG) 1 VIAL SQ SCH ×4 (06:03→22:56)
[2021-05-28] MEDS: SEVELAMER CARBONATE 800 MG TAB (FP) PO SCH ×3 (08:13→17:46)
[2021-05-28 09:10] LABS: HEMATOCRIT 26.3 % (32.4-45.2); HEMOGLOBIN 8.4 GM/dL (10.7-15.3); MCH 21.2 pg (25.7-33.7); MCHC 31.8 g/dl (32.0-36.0); MEAN CELL VOLUME 66.5 fl (80-96); PLATELET COUNT 368 10^3/uL (134-434); RBC 3.96 M/mm3 (3.60-5.2); WHITE BLOOD COUNT 9.3 K/mm3 (4.0-10.0)
[2021-05-28] MEDS: SENNOSIDES 8.6MG TABLET (FP) PO SCH (09:22)
[2021-05-28] MEDS: ASPIRIN 81 MG CHEWABLE TABLETS PO SCH (09:22)
[2021-05-28] MEDS: CLOPIDOGREL BISULFATE 75 MG TABLET (FP) PO SCH (09:23)
[2021-05-28] MEDS: amLODIPine BESYLATE 5 MG TABLET (FP) PO SCH (09:23)
[2021-05-28] MEDS: ALLOPURINOL 100 MG TABLET (FP) PO SCH (09:23)
[2021-05-28] MEDS: CARVEDILOL 6.25 MG TABLET (FP) PO SCH ×2 (09:23→22:52)
[2021-05-28] MEDS: GABAPENTIN 300 MG CAPSULE PO SCH ×2 (09:23→22:52)
[2021-05-28] MEDS: PANTOPRAZOLE 20 MG TABLET PO SCH (09:23)
[2021-05-28] MEDS: LACTOBACILLUS ACIDOPHILUS 1 TABLET PO SCH (09:23)
[2021-05-28] MEDS: POLYETHYLENE GLYCOL (HEALTHYLAX) 3350 17 GM PACKET PO SCH ×2 (09:24→22:52)
[2021-05-28 09:27] LABS: ALBUMIN 2.6 g/dl (3.4-5.0); CALCIUM 9.4 mg/dL (8.5-10.1)
[2021-05-28 09:29] LABS: BLOOD UREA NITROGEN 54.8 mg/dL (7-18)
[2021-05-28 09:32] LABS: BILIRUBIN,TOTAL 0.2 mg/dL (0.2-1); CREATININE 2.1 mg/dL (0.55-1.3); TOT PROT 6.5 g/dl (6.4-8.2)
[2021-05-28] MEDS ORDERED: INSULIN (NOVOLOG) ASPART 100 UNITS/ML 10ML VIAL ONE (11:33)
[2021-05-28 18:06] VITALS: BMI 40.0
[2021-05-28] MEDS: ATORVASTATIN CA 10 MG TABLET (FP) PO SCH (22:52)
[2021-05-28] MEDS: INSULIN (LEVEMIR) 100 UNITS/ML UNITS SQ SCH (22:55)
[2021-05-29] MEDS: INSULIN SLIDING SCALE (NOVOLOG) 1 VIAL SQ SCH ×4 (06:36→21:45)
[2021-05-29] MEDS: INSULIN (LEVEMIR) 100 UNITS/ML UNITS SQ SCH ×2 (06:37→22:38)
[2021-05-29] MEDS ORDERED: PT OWN MED DRAWER 7, Y5N ONE (09:17)
[2021-05-29] MEDS: ENOXAPARIN NA (PORCINE) 30 MG/0.3 ML DISP.SYRIN SQ SCH (09:42)
[2021-05-29] MEDS: GABAPENTIN 300 MG CAPSULE PO SCH ×2 (09:43→21:43)
[2021-05-29] MEDS: CARVEDILOL 6.25 MG TABLET (FP) PO SCH ×2 (09:43→21:43)
[2021-05-29] MEDS: SEVELAMER CARBONATE 800 MG TAB (FP) PO SCH ×3 (09:43→17:40)
[2021-05-29] MEDS: ASPIRIN 81 MG CHEWABLE TABLETS PO SCH (09:43)
[2021-05-29] MEDS: POLYETHYLENE GLYCOL (HEALTHYLAX) 3350 17 GM PACKET PO SCH ×2 (09:43→21:43)
[2021-05-29] MEDS: PANTOPRAZOLE 20 MG TABLET PO SCH (09:43)
[2021-05-29] MEDS: LACTOBACILLUS ACIDOPHILUS 1 TABLET PO SCH (09:43)
[2021-05-29] MEDS: CLOPIDOGREL BISULFATE 75 MG TABLET (FP) PO SCH (09:43)
[2021-05-29] MEDS: ALLOPURINOL 100 MG TABLET (FP) PO SCH (09:43)
[2021-05-29] MEDS: amLODIPine BESYLATE 5 MG TABLET (FP) PO SCH (09:49)
[2021-05-29] MEDS: SENNOSIDES 8.6MG TABLET (FP) PO SCH (09:49)
[2021-05-29] MEDS ORDERED: FUROSEMIDE 40 MG/4 ML INJECTABLE VIAL IVPUSH SCH (10:00)
[2021-05-29 12:46] LABS: BLOOD UREA NITROGEN 50.6 mg/dL (7-18); CALCIUM 9.5 mg/dL (8.5-10.1)
[2021-05-29] MEDS: ATORVASTATIN CA 10 MG TABLET (FP) PO SCH (21:43)
[2021-05-30] MEDS: INSULIN (LEVEMIR) 100 UNITS/ML UNITS SQ SCH (06:05)
[2021-05-30] MEDS: INSULIN SLIDING SCALE (NOVOLOG) 1 VIAL SQ SCH (06:06)
[2021-05-30 07:07] VITALS: BP 126/68; TEMP 98.4
[2021-05-30 07:49] VITALS: PULSE 88
[2021-05-30] MEDS ORDERED: FUROSEMIDE 40 MG TABLET (FP) PO SCH (10:00)
[2021-05-30] MEDS: SEVELAMER CARBONATE 800 MG TAB (FP) PO SCH (10:17)
[2021-05-30] MEDS: ASPIRIN 81 MG CHEWABLE TABLETS PO SCH (10:18)
[2021-05-30] MEDS: CARVEDILOL 6.25 MG TABLET (FP) PO SCH (10:18)
[2021-05-30] MEDS: LACTOBACILLUS ACIDOPHILUS 1 TABLET PO SCH (10:18)
[2021-05-30] MEDS: ALLOPURINOL 100 MG TABLET (FP) PO SCH (10:18)
[2021-05-30] MEDS: CLOPIDOGREL BISULFATE 75 MG TABLET (FP) PO SCH (10:18)
[2021-05-30] MEDS: GABAPENTIN 300 MG CAPSULE PO SCH (10:18)
[2021-05-30] MEDS: amLODIPine BESYLATE 5 MG TABLET (FP) PO SCH (10:18)
[2021-05-30] MEDS: SENNOSIDES 8.6MG TABLET (FP) PO SCH (10:18)
[2021-05-30] MEDS: PANTOPRAZOLE 20 MG TABLET PO SCH (10:18)
[2021-05-30] MEDS: POLYETHYLENE GLYCOL (HEALTHYLAX) 3350 17 GM PACKET PO SCH (10:19)
[2021-05-30] MEDS: ENOXAPARIN NA (PORCINE) 30 MG/0.3 ML DISP.SYRIN SQ SCH (10:19)
== END 2021-05-30 13:24 | DRG 444 ==
LOC: JER 10:24 → JERBED 20:57 → J8W 05-18 00:13
PROVIDERS: ADMIT Hospitalist; ATTEND Internal Medicine
DX: K81.0 Acute cholecystitis (principal); I50.41 Acute combined systolic (congestive) and diastolic (congestive) heart failure; J96.21 Acute and chronic respiratory failure with hypoxia; J96.22 Acute and chronic respiratory failure with hypercapnia; I13.0 Hypertensive heart and chronic kidney disease with heart failure and stage 1 through stage 4 chronic kidney disease, or unspecified chronic kidney disease; E11.9 Type 2 diabetes mellitus without complications; N18.30 Chronic kidney disease, stage 3 unspecified; I25.10 Atherosclerotic heart disease of native coronary artery without angina pectoris; J45.909 Unspecified asthma, uncomplicated; J44.9 Chronic obstructive pulmonary disease, unspecified; K21.9 Gastro-esophageal reflux disease without esophagitis; D72.829 Elevated white blood cell count, unspecified; R10.9 Unspecified abdominal pain; Z95.810 Presence of automatic (implantable) cardiac defibrillator; E66.9 Obesity, unspecified; Z68.37 Body mass index [BMI] 37.0-37.9, adult; Z98.61 Coronary angioplasty status
CPT/HCPCS: 36415; 36600; 71045-TC-FY; 74176-TC; 76705-TC; 78226-TC; 80048; 80053; 81003; 82550; 82803; 82962; 83690; 83735; 83880; 84484; 85025; 85027; 85610; 85730; 87086; 93005; 93010; 93306-TC; 93971-TC; 94640; 97116-GP; 97161-GP; 99285-25; A9537; C9803; U0003; U0005

== ENCOUNTER 2023-06-09 15:32 | Inpatient (IN) | payer OTHER ==
[2023-06-09] MEDS ORDERED: INSULIN (NOVOLOG) ASPART 100 UNITS/ML 10ML VIAL SQ ONE (16:27)
[2023-06-09 17:17] VITALS: BMI 40.3
[2023-06-09 17:35] LABS: VENOUS O2 SATURATION 37.6 % (70-80); VENOUS PCO2 58.8 mmHg (38-52); VENOUS PH 7.312 (7.310-7.410)
[2023-06-09 17:37] LABS: BASO % 0.7 % (0-2.0); HEMATOCRIT 29.5 % (32.4-45.2); HEMOGLOBIN 9.4 GM/dL (10.7-15.3); LYMPH % 25.4 % (8-40); MCH 21.6 pg (25.7-33.7); MCHC 31.9 g/dl (32.0-36.0); MEAN CELL VOLUME 67.9 fl (80-96); MEAN PLT VOLUME 10.7 fl (7.5-11.1); MONO % 5.9 % (3.8-10.2); PLATELET COUNT 191 10^3/uL (134-434); RBC 4.35 M/mm3 (3.60-5.2); RDW 15.5 % (11.6-15.6); WHITE BLOOD COUNT 7.1 K/mm3 (4.0-10.0)
[2023-06-09 17:44] LABS: INR 1.09 (0.83-1.09); PROTHROMBIN TIME (PATIENT) 12.6 SEC (9.7-13.0)
[2023-06-09 17:46] LABS: ACTIVATED PTT 32.2 SECONDS (25.2-36.5)
[2023-06-09 17:55] LABS: CHLORIDE 97 mmol/L (98-107); POTASSIUM 5.3 mmol/L (3.5-5.1); SODIUM 135 mmol/L (136-145)
[2023-06-09 17:58] LABS: ALBUMIN 3.2 g/dl (3.4-5.0); ANION GAP 6 MMOL/L (8-16); BLOOD UREA NITROGEN 77.2 mg/dL (7-18); CALCIUM 9.2 mg/dL (8.5-10.1); CO2 32 mmol/L (21-32)
[2023-06-09 18:01] LABS: SGPT/ALT 14 U/L (13-61)
[2023-06-09 18:02] LABS: SGOT/AST 9 U/L (15-37)
[2023-06-09 18:03] LABS: BILIRUBIN,TOTAL 0.1 mg/dL (0.2-1); TOT PROT 7.1 g/dl (6.4-8.2)
[2023-06-09 18:04] LABS: ALK PHOS 233 U/L (45-117); ANISOCYTOSIS 1+; MACROCYTOSIS 0; OVALOCYTE 1+; TEAR DROP CELLS 1+
[2023-06-09 18:09] LABS: GLUCOSE,RANDOM 689 mg/dL (74-106)
[2023-06-09 18:20] LABS: URINE APPEARANCE CLEAR; URINE BILIRUBIN NEGATIVE (NEGATIVE); URINE COLOR YELLOW; URINE GLUCOSE (UA) 3+ (NEGATIVE); URINE KETONE NEGATIVE (NEGATIVE); URINE LEUK ESTERASE NEGATIVE (NEGATIVE); URINE NITRITE NEGATIVE (NEGATIVE); URINE PROTEIN NEGATIVE (NEGATIVE); URINE UROBILINOGEN 0.2 mg/dL (0.2-1.0)
[2023-06-09 18:32] LABS: LACTIC ACID 2.4 mmol/L (0.4-2.0)
[2023-06-09] MEDS ORDERED: INSULIN REGULAR HUMAN 100 UNITS/ML *VIAL SQ ONE ×2 (18:38→20:03)
[2023-06-09] MEDS ORDERED: SODIUM CHLORIDE 0.9% 500 ML INFUS.BAG IV ONE (20:06)
[2023-06-09] MEDS ORDERED: MELATONIN 5 MG TABLETS PO PRN (22:40)
[2023-06-09] MEDS: GABAPENTIN 300 MG CAPSULE PO SCH (22:55)
[2023-06-10] MEDS: HEPARIN NA (PORCINE) 5,000 UNITS/ML 1ML VIAL SQ SCH ×3 (06:18→21:54)
[2023-06-10] MEDS: INSULIN SLIDING SCALE (NOVOLOG) 1 VIAL SQ SCH ×3 (06:21→17:29)
[2023-06-10 08:47] LABS: HEMATOCRIT 31.1 % (32.4-45.2); HEMOGLOBIN 10.1 GM/dL (10.7-15.3); MCH 21.6 pg (25.7-33.7); MCHC 32.3 g/dl (32.0-36.0); MEAN PLT VOLUME 10.2 fl (7.5-11.1); PLATELET COUNT 200 10^3/uL (134-434); RBC 4.65 M/mm3 (3.60-5.2); RDW 15.6 % (11.6-15.6); WHITE BLOOD COUNT 8.8 K/mm3 (4.0-10.0)
[2023-06-10 09:03] LABS: POTASSIUM 4.1 mmol/L (3.5-5.1)
[2023-06-10 09:06] LABS: BLOOD UREA NITROGEN 72.8 mg/dL (7-18); CALCIUM 9.6 mg/dL (8.5-10.1)
[2023-06-10 09:09] LABS: CREATININE 2.7 mg/dL (0.55-1.3)
[2023-06-10] MEDS ORDERED: SODIUM CHLORIDE 0.45% 1,000 ML IV SCH (09:30)
[2023-06-10] MEDS: GABAPENTIN 300 MG CAPSULE PO SCH ×2 (11:06→21:54)
[2023-06-10] MEDS: ALLOPURINOL 100 MG TABLET (FP) PO SCH (11:06)
[2023-06-10] MEDS: CLOPIDOGREL BISULFATE 75 MG TABLET (FP) PO SCH (11:06)
[2023-06-10] MEDS: CARVEDILOL 12.5 MG TABLET (FP) PO SCH ×2 (11:06→22:00)
[2023-06-10] MEDS: ASPIRIN COATED 81 MG TABLET.EC PO SCH (11:06)
[2023-06-10] MEDS: amLODIPine BESYLATE 5 MG TABLET (FP) PO SCH (11:07)
[2023-06-10] MEDS: MINERAL OIL/PET HY-PHL TOPICAL OINTMENT 454 GM JAR TP SCH (17:23)
[2023-06-10] MEDS: INSULIN (LEVEMIR) 100 UNITS/ML UNITS SQ SCH (21:53)
[2023-06-10] MEDS: ATORVASTATIN CA 10 MG TABLET (FP) PO SCH (21:54)
[2023-06-11] MEDS: HEPARIN NA (PORCINE) 5,000 UNITS/ML 1ML VIAL SQ SCH ×3 (05:19→22:28)
[2023-06-11] MEDS: INSULIN (LEVEMIR) 100 UNITS/ML UNITS SQ SCH ×2 (06:22→22:29)
[2023-06-11] MEDS: INSULIN SLIDING SCALE (NOVOLOG) 1 VIAL SQ SCH ×4 (06:23→22:32)
[2023-06-11] MEDS ORDERED: INSULIN SLIDING SCALE (NOVOLOG) 1 VIAL SQ SCH ×4 (07:00→22:00)
[2023-06-11 09:13] LABS: POTASSIUM 4.7 mmol/L (3.5-5.1)
[2023-06-11 09:16] LABS: BLOOD UREA NITROGEN 85.4 mg/dL (7-18); CALCIUM 8.7 mg/dL (8.5-10.1)
[2023-06-11 09:19] LABS: CREATININE 3.7 mg/dL (0.55-1.3)
[2023-06-11] MEDS: MINERAL OIL/PET HY-PHL TOPICAL OINTMENT 454 GM JAR TP SCH (10:51)
[2023-06-11] MEDS: CLOPIDOGREL BISULFATE 75 MG TABLET (FP) PO SCH (10:54)
[2023-06-11] MEDS: ASPIRIN COATED 81 MG TABLET.EC PO SCH (10:54)
[2023-06-11] MEDS: GABAPENTIN 300 MG CAPSULE PO SCH ×2 (10:54→22:29)
[2023-06-11] MEDS: CARVEDILOL 12.5 MG TABLET (FP) PO SCH (10:54)
[2023-06-11] MEDS: ALLOPURINOL 100 MG TABLET (FP) PO SCH (10:55)
[2023-06-11] MEDS: amLODIPine BESYLATE 5 MG TABLET (FP) PO SCH (11:00)
[2023-06-11] MEDS: CARVEDILOL 3.125 MG TABLET (FP) PO SCH (22:29)
[2023-06-11] MEDS: ATORVASTATIN CA 10 MG TABLET (FP) PO SCH (22:29)
[2023-06-12] MEDS: HEPARIN NA (PORCINE) 5,000 UNITS/ML 1ML VIAL SQ SCH ×3 (06:06→22:30)
[2023-06-12] MEDS: INSULIN SLIDING SCALE (NOVOLOG) 1 VIAL SQ SCH ×4 (06:07→22:32)
[2023-06-12] MEDS: INSULIN (LEVEMIR) 100 UNITS/ML UNITS SQ SCH ×2 (06:07→22:31)
[2023-06-12 07:26] LABS: BASO % 0.8 % (0-2.0); EOS % 4.4 % (0-4.5); HEMATOCRIT 26.6 % (32.4-45.2); HEMOGLOBIN 8.4 GM/dL (10.7-15.3); LYMPH % 34.9 % (8-40); MCH 21.6 pg (25.7-33.7); MCHC 31.7 g/dl (32.0-36.0); MEAN CELL VOLUME 68.2 fl (80-96); MONO % 7.2 % (3.8-10.2); NEUT % 52.7 % (42.8-82.8); PLATELET COUNT 188 10^3/uL (134-434); RDW 15.1 % (11.6-15.6); WHITE BLOOD COUNT 8.2 K/mm3 (4.0-10.0)
[2023-06-12 07:54] LABS: POTASSIUM 4.7 mmol/L (3.5-5.1)
[2023-06-12 07:57] LABS: ALBUMIN 2.7 g/dl (3.4-5.0); BLOOD UREA NITROGEN 93.8 mg/dL (7-18); CALCIUM 8.9 mg/dL (8.5-10.1)
[2023-06-12 08:00] LABS: CREATININE 3.8 mg/dL (0.55-1.3); URIC ACID 6.8 mg/dL (2.6-7.2)
[2023-06-12 08:02] LABS: BILIRUBIN,TOTAL 0.2 mg/dL (0.2-1); TOT PROT 6.2 g/dl (6.4-8.2)
[2023-06-12] MEDS: CLOPIDOGREL BISULFATE 75 MG TABLET (FP) PO SCH (09:28)
[2023-06-12] MEDS: ASPIRIN COATED 81 MG TABLET.EC PO SCH (09:28)
[2023-06-12] MEDS: ALLOPURINOL 100 MG TABLET (FP) PO SCH (09:28)
[2023-06-12] MEDS: CARVEDILOL 3.125 MG TABLET (FP) PO SCH ×2 (09:28→22:30)
[2023-06-12] MEDS: GABAPENTIN 300 MG CAPSULE PO SCH ×2 (09:28→22:30)
[2023-06-12] MEDS: MINERAL OIL/PET HY-PHL TOPICAL OINTMENT 454 GM JAR TP SCH (09:29)
[2023-06-12] MEDS: SODIUM CHLORIDE 0.45% 1,000 ML IV SCH (17:08)
[2023-06-12] MEDS ORDERED: INSULIN (NOVOLOG) ASPART 100 UNITS/ML 10ML VIAL SQ SCH (22:00)
[2023-06-12] MEDS: ATORVASTATIN CA 10 MG TABLET (FP) PO SCH (22:30)
[2023-06-13] MEDS: HEPARIN NA (PORCINE) 5,000 UNITS/ML 1ML VIAL SQ SCH ×3 (06:29→22:17)
[2023-06-13] MEDS ORDERED: INSULIN (LEVEMIR) 100 UNITS/ML UNITS SQ ONE (06:43)
[2023-06-13] MEDS: INSULIN SLIDING SCALE (NOVOLOG) 1 VIAL SQ SCH ×4 (06:51→22:18)
[2023-06-13] MEDS ORDERED: INSULIN (LEVEMIR) 100 UNITS/ML UNITS SQ SCH (08:15)
[2023-06-13 08:50] LABS: HEMATOCRIT 26.3 % (32.4-45.2); HEMOGLOBIN 8.4 GM/dL (10.7-15.3); MCH 21.7 pg (25.7-33.7); MCHC 31.8 g/dl (32.0-36.0); MEAN CELL VOLUME 68.1 fl (80-96); MEAN PLT VOLUME 11.1 fl (7.5-11.1); PLATELET COUNT 191 10^3/uL (134-434); RBC 3.86 M/mm3 (3.60-5.2); WHITE BLOOD COUNT 8.5 K/mm3 (4.0-10.0)
[2023-06-13 09:02] LABS: POTASSIUM 4.6 mmol/L (3.5-5.1)
[2023-06-13 09:06] LABS: CALCIUM 8.5 mg/dL (8.5-10.1)
[2023-06-13 09:08] LABS: BLOOD UREA NITROGEN 101.7 mg/dL (7-18)
[2023-06-13 09:09] LABS: CREATININE 3.5 mg/dL (0.55-1.3)
[2023-06-13] MEDS: GABAPENTIN 300 MG CAPSULE PO SCH ×2 (10:09→22:18)
[2023-06-13] MEDS: ASPIRIN COATED 81 MG TABLET.EC PO SCH (10:09)
[2023-06-13] MEDS: CARVEDILOL 3.125 MG TABLET (FP) PO SCH ×2 (10:10→22:17)
[2023-06-13] MEDS: CLOPIDOGREL BISULFATE 75 MG TABLET (FP) PO SCH (10:10)
[2023-06-13] MEDS: ALLOPURINOL 100 MG TABLET (FP) PO SCH (10:10)
[2023-06-13] MEDS: MINERAL OIL/PET HY-PHL TOPICAL OINTMENT 454 GM JAR TP SCH (11:31)
[2023-06-13] MEDS: SODIUM CHLORIDE 0.45% 1,000 ML IV SCH (17:00)
[2023-06-13] MEDS: ATORVASTATIN CA 10 MG TABLET (FP) PO SCH (22:18)
[2023-06-13] MEDS: INSULIN (LEVEMIR) 100 UNITS/ML UNITS SQ SCH (22:19)
[2023-06-14] MEDS: HEPARIN NA (PORCINE) 5,000 UNITS/ML 1ML VIAL SQ SCH ×3 (05:43→22:31)
[2023-06-14] MEDS: INSULIN SLIDING SCALE (NOVOLOG) 1 VIAL SQ SCH ×4 (06:03→22:32)
[2023-06-14] MEDS: INSULIN (LEVEMIR) 100 UNITS/ML UNITS SQ SCH ×2 (06:04→22:32)
[2023-06-14 09:58] LABS: BLOOD UREA NITROGEN 92.6 mg/dL (7-18); CALCIUM 8.7 mg/dL (8.5-10.1)
[2023-06-14 10:01] LABS: CREATININE 3.1 mg/dL (0.55-1.3)
[2023-06-14] MEDS: ALLOPURINOL 100 MG TABLET (FP) PO SCH (10:19)
[2023-06-14] MEDS: CARVEDILOL 3.125 MG TABLET (FP) PO SCH ×2 (10:19→22:31)
[2023-06-14] MEDS: CLOPIDOGREL BISULFATE 75 MG TABLET (FP) PO SCH (10:19)
[2023-06-14] MEDS: GABAPENTIN 300 MG CAPSULE PO SCH ×2 (10:19→22:31)
[2023-06-14] MEDS: ASPIRIN COATED 81 MG TABLET.EC PO SCH (10:19)
[2023-06-14] MEDS: MINERAL OIL/PET HY-PHL TOPICAL OINTMENT 454 GM JAR TP SCH (12:25)
[2023-06-14] MEDS: SODIUM CHLORIDE 0.45% 1,000 ML IV SCH (18:16)
[2023-06-14] MEDS: ATORVASTATIN CA 10 MG TABLET (FP) PO SCH (22:31)
[2023-06-15] MEDS: INSULIN (LEVEMIR) 100 UNITS/ML UNITS SQ SCH (06:39)
[2023-06-15] MEDS: HEPARIN NA (PORCINE) 5,000 UNITS/ML 1ML VIAL SQ SCH ×2 (06:39→14:11)
[2023-06-15] MEDS: INSULIN SLIDING SCALE (NOVOLOG) 1 VIAL SQ SCH ×3 (06:42→17:06)
[2023-06-15] MEDS: SODIUM CHLORIDE 0.45% 1,000 ML IV SCH (06:44)
[2023-06-15] MEDS ORDERED: INSULIN (LEVEMIR) 100 UNITS/ML UNITS SQ ONE (07:14)
[2023-06-15] MEDS ORDERED: INSULIN SLIDING SCALE (NOVOLOG) 1 VIAL SQ ONE (07:14)
[2023-06-15] MEDS: CARVEDILOL 3.125 MG TABLET (FP) PO SCH (10:30)
[2023-06-15] MEDS: CLOPIDOGREL BISULFATE 75 MG TABLET (FP) PO SCH (10:30)
[2023-06-15] MEDS: GABAPENTIN 300 MG CAPSULE PO SCH (10:30)
[2023-06-15] MEDS: ALLOPURINOL 100 MG TABLET (FP) PO SCH (10:30)
[2023-06-15] MEDS: ASPIRIN COATED 81 MG TABLET.EC PO SCH (10:31)
[2023-06-15] MEDS: MINERAL OIL/PET HY-PHL TOPICAL OINTMENT 454 GM JAR TP SCH (10:31)
[2023-06-15 15:34] VITALS: BP 139/61; PULSE 69; RESP 18; TEMP 98.2
[2023-06-15 20:07] LABS: ANTIGLOMERULAR BASEMENT MEN.AB <0.2 units (0.0-0.9)
[2023-06-16 16:10] LABS: ATYPICAL pANCA <1:20 titer (Neg:<1:20); C-ANCA <1:20 titer (Neg:<1:20)
== END 2023-06-15 19:13 | DRG 638 ==
LOC: JER 15:32 → JERBED 19:55 → J4S 23:11
PROVIDERS: ADMIT Internal Medicine; ATTEND Internal Medicine
DX: E11.65 Type 2 diabetes mellitus with hyperglycemia (principal); I13.0 Hypertensive heart and chronic kidney disease with heart failure and stage 1 through stage 4 chronic kidney disease, or unspecified chronic kidney disease; I50.32 Chronic diastolic (congestive) heart failure; N18.4 Chronic kidney disease, stage 4 (severe); N17.9 Acute kidney failure, unspecified; Z68.41 Body mass index [BMI] 40.0-44.9, adult; E66.9 Obesity, unspecified; I25.119 Atherosclerotic heart disease of native coronary artery with unspecified angina pectoris; Z95.5 Presence of coronary angioplasty implant and graft; K21.9 Gastro-esophageal reflux disease without esophagitis
CPT/HCPCS: 36415; 71045-TC-FY; 76775-TC; 80048; 80053; 81003; 82010; 82803; 82962; 83036; 83516; 83520; 83605; 84155; 84165; 84484; 84550; 85025; 85027; 85610; 85730; 86038; 86256; 86850; 86900; 86901; 87040; 87086; 87635; 93005; 93010; 97116-GP; 97161-GP; 99285-25; J1644